=== PATIENT | female | born 1980 | race Caucasian/White ===

== ENCOUNTER → 2023-06-01 | Outpatient (CLI) | payer OTHER, SELFPAY ==
--- NOTE | 2023-06-01 09:06 | VDLE_ITS ---
Reason For Study: BLE Pain RIGHT LEFT CFV is compressible, spontaneous, phasic, LT CFV - FV - POP V - T/P Trunk - PTV - Janna competent and demonstrates normal V are all partially compressible with chronic augmentation. DVT noted throughout different portions of FV is compressible, spontaneous, phasic, vessels. competent and demonstrates normal CFV and FV are spontaneous and phasic with augmentation. normal augmentation. POP V is compressible, spontaneous, phasic, POP V is phasic and INCOMPETENT for greater competent and demonstrates normal than 1.0 second. augmentation. SFJ is competent and measures 0.58 cm. T/P Trunk is compressible. GSV proximal thigh measures 0.31 x 0.31 cm. PTV is compressible. GSV at knee measures 0.28 x 0.32 cm. RT PerV is compressible. GSV is competent throughout. SFJ is competent and measures 0.65 cm. ASV mid calf is INCOMPETENT for greater than GSV proximal thigh measures 0.28 x 0.32 cm. 0.5 seconds and measures 0.35 x 0.36 cm. GSV at knee measures 0.25 x 0.27 cm. Lt Perf approximately 9 cm above MM measures GSV above knee is competent. 0.28 x 0.28cm and is INCOMPETENT for greater GSV below knee is INCOMPETENT for greater than 0.5 seconds. than 0.5 seconds. Perf appears to feed mid calf ASV. SSV proximal calf is competent and measures Mid calf ASV appears to feed mid calf 0.16 x 0.18 cm. varicosities. Procedure SSV proximal calf is competent and measures This is a venous duplex using B-mode, color 0.41 x 0.43 cm. flow and spectral Doppler. Exam performed in department. The exam was diagnostic. VL/Venous Duplex US - Jagdish Extrem Interpretation Summary Deep veins of the bilateral lower extremities are patent and compressible segme ntally. There is no evidence of bilateral lower extremities deep vein thrombosis. The bilateral gre at saphenous veins appear patent and compressible segmentally. Positive for reflux in the right great saphenous vein below the knee. 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 Ordering Physician: Harshad Sauceda Referring Physician: Harshad Sauceda Performed By: Leopoldo Wen RVT
== END | disposition home or self-care (01) ==
LOC: CVS 09:04
PROVIDERS: Referring Provider Surgery Trauma Surgery; Visit Provider Surgery Trauma Surgery
DX: Z86.718 Personal history of other venous thrombosis and embolism (principal)
CPT/HCPCS: 93970

== ENCOUNTER 2023-06-28 06:51 | Day surgery (SDC) | payer OTHER, SELFPAY ==
[2023-06-28 07:21] LABS: Absolute Lymphocyte Count 1.89 X10^3/uL (0.83-4.51); Absolute Neutrophil Count 4.3 X10^3/uL (2.0-7.7); Basophil# 0.02 X10^3/uL; Basophil% 0.3 % (0-1); Eosinophil# 0.15 X10^3/uL; Eosinophils% 2.1 % (0-5); Hematocrit 42.3 % (37-47); Hemoglobin 13.9 g/dL (12.0-15.0); Lymphocyte # 1.89 X10^3/ul (0.83-4.51); Lymphocyte % 26.8 % (19-41); Mean Corp Hgb Conc 32.9 g/dL (32-36); Mean Corpuscular Hgb 30.3 pg (27.0-32.0); Mean Corpuscular Volume 92.4 fL (81-99); Mean Platelet Vol. 9.4 fl (6.2-12.0); Monocyte# 0.59 X10^3/uL; Monocyte% 8.4 % (0-10); NRBC Flagged by Analyzer 0 % (0-5); Neutrophil # 4.34 X10^3/uL (2.7-7.7); Neutrophil % 61.4 % (47-70); Platelet Count 298 K/mm3 (150-450); RBC Distribution Width CV 13.1 % (11.6-14.6); Red Blood Count 4.58 M/mm3 (4.2-5.4); White Blood Count 7.1 K/mm3 (4.4-11.0)
[2023-06-28 07:27] VITALS: BMI 21.2
[2023-06-28 07:36] LABS: Anion Gap 7 (5-15); BUN 17 mg/dL (7-18); Calcium,Total 8.8 mg/dL (8.5-10.1); Chloride 109 mmol/L (98-107); Creatinine, Serum 0.94 mg/dL (0.55-1.02); EST Glomerular Filtration Rate 68 mL/min (>60); Est Glom Filt Rate - Afr Amer 83 mL/min (>60); Estimated Creatinine Clearance 65.95 ml/min; Glucose 100 mg/dL (74-106); Potassium 3.5 mmol/L (3.5-5.1); Sodium Level 141 mmol/L (136-145)
--- NOTE | 2023-06-28 07:48 | PCM.HP.STD ---
HPI - General HPI Narrative ORIANA CALIX, is a 43 F who presents with left lower extremity post thrombotic syndrome, protein C and S deficiency, prior IVC filter. She has had worsening pain/swelling worse at the end of the day. 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 She denies any ulcerations. She does wear compression. [facility] Medical History Anxiety GERD (gastroesophageal reflux disease) H/O protein C deficiency H/O protein S deficiency Hypothyroidism Malignant melanoma Home Medications apixaban 5 mg tablet (Eliquis) 5 mg PO BID 06/02/22 [History Last Taken 06/27/23] eletriptan 20 mg tablet See Rx Instructions PO .COMPLEX 06/02/22 [History Last Taken Unknown] ibuprofen 600 mg tablet 600 mg PO TID 06/02/22 [History Last Taken Unknown] levothyroxine 112 mcg capsule 112 mcg PO DAILY 06/02/22 [History Last Taken 06/28/23] pantoprazole 40 mg tablet,delayed release 40 mg PO DAILY 06/02/22 [History Last Taken 06/28/23] polyethylene glycol 3350 17 gram/dose oral powder (Miralax) 4 g PO DAILY 06/02/22 [History Last Taken Unknown] tizanidine 4 mg tablet 4 mg PO QHS 06/02/22 [History Last Taken Unknown] topiramate 100 mg tablet 100 mg PO BID 06/02/22 [History Last Taken Unknown] Allergy/AdvReac Type Severity Reaction Status Date / Time Penicillins Allergy Severe Hives Verified 05/24/23 14:26 ketorolac [From Toradol] Allergy Intermediate Swelling Verified 05/24/23 14:26 latex Allergy Hives Verified 05/24/23 14:26 naproxen Allergy Hives Verified 05/24/23 14:26 Family History Father Bleeding disorder Heart disease Surgical History H/O adenoidectomy H/O local excision of skin lesion H/O superior vena cava filter placement H/O: H/O: hysterectomy Social History Smoking Status: Former smoker substance use type: does not use do you feel safe at home: Yes ROS Constitutional Constitutional: Denies chills, fever(s), frequent falls, lethargy or weakness Eyes Eyes: Denies blind spots, change in vision or loss of vision ENT HEENT: Denies bleeding gums, hoarseness or sore throat Cardiovascular Cardiovascular: Reports leg edema; Denies abdominal pain, bluish discoloration of hand/feet, chest pain with activity, claudication, cold extremities, cyanosis, dyspnea on exertion, erythema on extremities, irregular heart rhythm, leg ulcers, numbness in extremities or weakness in extremities Respiratory/Chest Respiratory/Chest: Denies cough, excessive phlegm production, shortness of breath at rest, shortness of breath with exertion or wheezing Gastrointestinal Gastrointestinal: Denies anorexia, change in stool character, constipation, diarrhea, melena or rectal bleeding Genitourinary Genitourinary: Denies dysuria or hematuria Musculoskeletal Musculoskeletal: Denies abnormal gait Integumentary Integumentary: Reports other Details: ; Denies erythema, non-healing lesions or wounds Neurologic Neurologic: Denies abnormal speech, focal weakness, headache(s), loss of vision, numbness, paresthesias or sensory deficit Hematologic/Lymphatic Hematologic/Lymphatic: Denies easy bleeding, easy bruising or lymphadenopathy Vital Signs Vital Signs Vital Signs: Weight Weight: 124 lb Body Mass Index (BMI) 21.2 Physical Exam Const alert, oriented x3, no apparent distress and healthy appearing General Appearance: cooperative; Negative for combative or lethargic Orientation / Consciousness: awake Exam Limitations: no limitations HEENT Head and Scalp: normocephalic and atraumatic Eyes EOMs intact bilaterally General Eye: normal appearance of both eyes Neck full ROM, no lymphadenopathy, thyroid normal and No no carotid bruits General: trachea midline; Negative for lymphadenopathy Thyroid: thyroid normal Resp normal respiratory effort and no use of accessory muscles Effort and Inspection: Negative for labored, stridor or audible wheezes Cardio regular rate and regular rhythm Back/Spine Cervical Spine: cervical ROM normal Extremity full ROM, normal capillary refill and no clubbing, cyanosis or edema Skin no rashes or lesions noted and no wounds Neuro oriented x3, CN's II-XII intact bilaterally, no focal motor deficits and no sensory deficits noted Psych thought process normal, cooperative, affect normal, speech normal and activity/motor behavior normal Results Lab / Micro Data 06/28/23 06:59 06/28/23 06:59 Labs: Laboratory Results - last 24 hr 06/28/23 06:59: WBC 7.1, RBC 4.58, Hgb 13.9, Hct 42.3, MCV 92.4, MCH 30.3, MCHC 32.9, RDW Std Deviation 44.0 H, RDW Coeff of Xochitl 13.1, Plt Count 298, MPV 9.4, Immature Gran % (Auto) 1.000 H, Neut % (Auto) 61.4, Lymph % (Auto) 26.8, Appling % (Auto) 8.4, Eos % (Auto) 2.1, Baso % (Auto) 0.3, Absolute Neuts (auto) 4.3, Absolute Lymphs (auto) 1.89, Nucleated RBC % 0, Sodium 141, Potassium 3.5, Chloride 109 H, Carbon Dioxide 25.0, Anion Gap 7, BUN 17, Creatinine 0.94, Estim Creat Clear Calc 65.95, Est GFR (MDRD) Af Amer 83, Est GFR (MDRD) Non-Af 68, BUN/Creatinine Ratio 18.0, Glucose 100, Calcium 8.8 Assessment & Plan Assessment/Plan (1) History of DVT (deep vein thrombosis): PLAN: -venogram
--- NOTE | 2023-06-28 09:31 | PCM.OPRPT ---
Report of Operation Date of Procedure: 06/28/23 Pre-Operative Diagnosis: venous insufficiency, post thrombotic syndrome left lower extremity Post-Operative Diagnosis: same Surgery/Procedure Performed:: venogram IVC IVUS IVC, bilateral common iliac, bilateral external iliac veins angioplasty/stent left common/external iliac veins Description of Surgical Findings:: left common iliac vein 73% compression and chronic webbing, left external iliac vein chronic webbing, patent IVC filter Surgeon: Harshad Sauceda Type of Anesthesia: Local and Sedation,Conscious Estimated Blood Loss (mL): 2 Description of Procedure: HPI: Patient is a 43-year-old female with previous extensive left lower extremity DVT and post thrombotic syndrome with worsening symptoms. She is on indefinite anticoagulation due to protein C and protein S deficiency and presents now for venogram to assess for any anatomic cause behind her worsening symptoms. Description of procedure: Upon obtaining form consent and verification correct patient procedure site patient taken to the Staff Psychologist where she was positioned prepped and draped in usual sterile fashion. Time was performed conscious sedation administered with Versed and fentanyl. Skin overlying the left common femoral vein was anesthetized 1% lidocaine the vessel accessed in retrograde fashion with a micropuncture needle wire. This then exchanged out for micropuncture sheath through which hand-injection ilio caval venogram was performed which confirmed satisfactory placement no extravasation or dissection. Also revealed widening of the common iliac vein with luminal irregularity and surrounding collaterals. It also revealed that the IVC and previously placed IVC filter were patent. Bentson wire was then advanced through the micropuncture sheath and the sheath exchanged for a 10 [place] sheath. Next skin overlying the right common femoral vein was anesthetized with 1% lidocaine the vessel accessed under ultrasound guidance with a micropuncture needle wire. This was then exchanged for micropuncture sheath routine injection ilio caval venogram was performed which revealed normal-appearing right common and external iliac veins. Through this a J-wire was advanced a micropuncture sheath exchanged out for a 10 [place] sheath. The patient was then heparinized and allowed to circulate for 3 minutes. Intravascular sound probe was then advanced via the left femoral access sheath into the vena cava and recorded pullback of the vena cava, left common iliac, left external iliac was performed. This revealed a normal caliber patent vena cava and a patent Trapeze IVC filter with no significant intimal hyperplasia, or chronic thrombus retained within it. This also revealed a 73% compression/stenosis of the left common iliac vein with significant chronic webbing in the common and external iliac veins. It appears as if this compression was inferior enough that it could be treated without compromising the vena cava confluence however to confirm this we advanced the IVUS catheter via the right femoral access sheath. A recorded pullback was then performed of the vena cava, right common iliac vein, right external iliac vein. This revealed normal caliber right iliac vein system with no compression and no chronic webbing. Next a 14 x 150 Medtronic Abre stent was brought in the field prepped for manufactures instructions. This was then advanced into position with satisfactory coverage of the compression as well as the chronic webbing and then deployed. It was then angioplastied with a 12 mm x 40 Bard [place] balloon along the entirety of the length of the stent. Repeat venogram revealed satisfactory resolution of the irregularity and stenosis with brisk contrast transit across the stented portion with no encroachment on the contralateral leg ostia. This also revealed less filling in the collateral veins. Intravascular sound was then readvanced and recorded pullback completion imaging performed which confirmed satisfactory placement with good stent to wall apposition with no residual compression. Wires and catheters then withdrawn and silk U stitch placed at each of the access sites and the sheath withdrawn and manual pressure held for 5 minutes with satisfactory stasis. Patient was then taken to recovery room with anticipated discharge home.
== END 2023-06-28 12:30 | disposition home or self-care (01) ==
PROVIDERS: Referring Provider Surgery Trauma Surgery; Visit Provider Surgery Trauma Surgery
DX: I87.2 Venous insufficiency (chronic) (peripheral) (principal); D68.59 Other primary thrombophilia; Z79.01 Long term (current) use of anticoagulants; Z87.891 Personal history of nicotine dependence; K21.9 Gastro-esophageal reflux disease without esophagitis; E03.9 Hypothyroidism, unspecified; F41.9 Anxiety disorder, unspecified; Z86.718 Personal history of other venous thrombosis and embolism
CPT/HCPCS: 36010; 36415; 37238; 37252; 37253; 75825; 76937; 80048; 85025; 86850; 86900; 86901; 99152; 99153; C1753; C1769; C1876; C1894; J7040; Q9967; C1725

== ENCOUNTER → 2023-07-06 | Outpatient (CLI) | payer OTHER, SELFPAY ==
[2023-07-06 13:46] LABS: Hemoglobin 13.4 g/dL (12.0-15.0)
== END | disposition home or self-care (01) ==
PROVIDERS: Referring Provider Physician Assistant; Visit Provider Physician Assistant
DX: Z79.01 Long term (current) use of anticoagulants (principal)
CPT/HCPCS: 36415; 85018

== ENCOUNTER → 2023-07-11 | Outpatient (CLI) | payer OTHER, SELFPAY ==
--- NOTE | 2023-07-11 14:57 | AAVD_ITS ---
Reason For Study: Pain, s/p lt iliac vein stent Inferior Vena Cava Proximal inferior vena cava measures 1.97 x 1.87 cm. in the cross-sectional axis. Proximal inferior vena cava measures 1.75 cm. in the longitudinal axis. Mid inferior vena cava measures 1.71 x 1.79 cm. in the cross-sectional axis. Mid inferior vena cava measures 1.67 cm. in the longitudinal axis. Distal inferior vena cava measures 1.26 x 1.24 cm. in the cross-sectional axis. Distal inferior vena cava measures 1.49 cm. in the longitudinal axis. The inferior vena cava has spontaneous, phasic flow throughout. Left Common Iliac Vein Left common iliac vein measures 1.02 x 1.11 cm. in the cross-sectional axis. Left common iliac vein measures 1.16 cm. in the longitudinal axis. The left common iliac vein has spontaneous, phasic flow throughout. EIV with normal venous flow noted. CFV is compressible with normal venous flow noted with augmentation. Right Common Iliac Vein Right common iliac vein measures 1.01 x 1.00 cm. in the cross-sectional axis. Right common iliac vein measures 1.13 cm. in the longitudinal axis. The right common iliac vein has spontaneous, phasic flow throughout. CFV is compressible with normal venous flow noted with augmentation. Procedure Aorta IVC Iliac vasculature or bypass grafts [id number]. Preliminary report given to Pamella DUARTE. Exam performed in department. VL/Abd Aortic/IVC Duplex scan Interpretation Summary IVC and bilateral iliac vein stents patent with normal flow patterns Ordering Physician: Tiara Sue Performed By: Ivy Cruz RVT
== END | disposition home or self-care (01) ==
LOC: CVS 14:55
PROVIDERS: Visit Provider Physician Assistant
DX: I87.1 Compression of vein (principal)
CPT/HCPCS: 93978

== ENCOUNTER → 2024-06-26 | Outpatient (CLI) | payer OTHER, SELFPAY ==
--- NOTE | 2024-06-26 09:10 | AAVD_ITS ---
Reason For Study: HX Lt CIV Stent Inferior Vena Cava Proximal inferior vena cava measures 1.79 x 1.99 cm. in the cross-sectional axis. Proximal inferior vena cava measures 1.92 cm. in the longitudinal axis. Mid inferior vena cava measures 1.47 x 1.51 cm. in the cross-sectional axis. Mid inferior vena cava measures 1.57 cm. in the longitudinal axis. Distal inferior vena cava measures 1.53 x 1.38 cm. in the cross-sectional axis. Distal inferior vena cava measures 1.26 cm. in the longitudinal axis. Bright intraluminal echo noted at mid/dist IVC. The inferior vena cava has spontaneous and pulsatile flow throughout. Left Common Iliac Vein Left common iliac vein measures 1.03 x 1.03 cm. in the cross-sectional axis. Left common iliac vein measures 1.11 cm. in the longitudinal axis. The left common iliac vein has spontaneous and pulsatile flow throughout. Stent noted in Lt CIV. Lt CFV is compressible and spontaneous with normal augmentation. Right Common Iliac Vein Right common iliac vein measures 1.14 x 1.06 cm. in the cross-sectional axis. Right common iliac vein measures 1.20 cm. in the longitudinal axis. The right common iliac vein has spontaneous pulsatile flow throughout. VL/Abd Aortic/IVC Duplex scan Interpretation Summary Patent left common iliac vein stent Patent inferior vena cava and right iliac vein. Pulsatile venous flow throughout. Ordering Physician: Harshad Sauceda Referring Physician: N/A Performed By: Leopoldo Wen, RVT
== END | disposition home or self-care (01) ==
PROVIDERS: Referring Provider Surgery Trauma Surgery; Visit Provider Surgery Trauma Surgery
DX: I87.1 Compression of vein (principal)
CPT/HCPCS: 93978

== ENCOUNTER → 2024-07-25 | Outpatient (CLI) | payer OTHER, SELFPAY ==
--- NOTE | 2024-07-25 08:11 | VDLE_ITS ---
Reason For Study: LLE PAIN RIGHT LEFT CFV is compressible, spontaneous, phasic, CFV is patent and compressible. competent and demonstrates normal CFV demonstrates wall thickening and reflux augmentation. >1.0 sec. Procedure FV patent and compressible. This is a venous duplex using B-mode, color FV demonstrates wall thickening and refulx > flow and spectral Doppler. 1.0 sec. Exam performed in department. POPV patent and compressible. Image #13 is the LT CFV. POPV demonstrated reflux > 1.0 sec. SFJ is competent and measures 0.79 cm. GSV proximal thigh measures 0.38 x 0.34 cm. GSV at knee measures 0.42 x 0.36 cm. GSV is competent throughout. SSV at junction is competent and measures 0.62 x 0.54 cm. VL/Venous Duplex US, Unilateral Interpretation Summary Deep veins of the left lower extremity are patent and compressible segmentally. There is no evidence of left lower extremity deep vein thrombosis. The left great saphenous vein heather ears patent and compressible segmentally. Positive for reflux in the left common femoral vein, femoral vein, popliteal ve in. Ordering Physician: Tiara Sue Referring Physician: OTD Performed By: Miroslava Nicholson, MAXWELL, RVT
--- NOTE | 2024-07-25 08:11 | ECHOD_ITS ---
Reason For Study: PALPITATIONS/SOB Procedure This was a 2D Doppler, Color Flow transthoracic echocardiogram. Exam performed in department. Left Ventricle Normal LV size. The estimated ejection fraction is 70 %. No evidence for diastolic dysfunction. No regional wall motion abnormalities noted. Right Ventricle Normal RV size. Normal systolic function. Atria The left and right atria are normal. No doppler evidence for ASD. Mitral Valve There is no mitral valve stenosis. Trivial mitral valve insufficiency. Tricuspid Valve There is no tricuspid stenosis. Trivial tricuspid valve insufficiency. Unable to estimate RV systolic pressure due to insufficient tricuspid regurgitant envelope. Aortic Valve Trisinus/trileaflet aortic valve. There is no aortic stenosis. No aortic valve insufficiency. Pulmonic Valve There is no pulmonic valvular stenosis. No pulmonic valve insufficiency. Great Vessels Normal aortic root. Pericardium/Pleural No pericardial effusion. MMode/2D Measurements & Calculations LVIDd: 4.3 cm IVSd: 0.97 cm LVOT diam: 2.0 cm LVIDs: 2.5 cm LVPWd: 0.91 cm LVOT area: 3.1 cm2 RVDd: 3.5 cm FS: 41.0 % asc Aorta Diam: 2.9 cm LAV(MOD-bp): 25.8 ml LVAd ap4: 19.9 cm2 LAV(MOD-bp) Indexed: 16.4 ml/m2 LVLd ap4: 6.7 cm LAV(MOD-sp2): 25.0 ml EDV(MOD-sp4): 47.8 ml LAV(MOD-sp4): 26.6 ml EDV(sp4-el): 50.2 ml LVAs ap4: 9.7 cm2 LVLs ap4: 5.2 cm ESV(MOD-sp4): 15.1 ml ESV(sp4-el): 15.4 ml EF(MOD-sp4): 68.5 % EF(sp4-el): 69.3 % LVAd ap2: 20.3 cm2 SV(MOD-sp4): 32.7 ml SV(MOD-sp2): 36.4 ml LVLd ap2: 6.8 cm EDV(MOD-sp2): 48.5 ml EDV(sp2-el): 51.4 ml LVAs ap2: 8.8 cm2 LVLs ap2: 5.2 cm ESV(MOD-sp2): 12.1 ml ESV(sp2-el): 12.6 ml EF(MOD-sp2): 75.1 % SV(sp4-el): 34.8 ml Ao sinus diam: 3.[address] Junction: 2.6 cm LA dimension(2D): 3.2 cm LA A4 area: 11.4 cm2 RA A4 area: 10.9 cm2 TAPSE: 1.8 cm Time Measurements MV dec time: 0.24 sec Doppler Measurements & Calculations MV E max john: 87.7 cm/sec Lat Peak E' John: 12.7 cm/sec Med Peak E' John: 12.3 cm/sec MV A max john: 59.5 cm/sec E/E' lat: 6.9 E/E' med: 7.1 MV E/A: 1.5 MV dec slope: 363.3 cm/sec2 Ao V2 max: 90.0 cm/sec LV V1 max: 85.1 cm/sec Ao max P.2 mmHg LV V1 max P.9 mmHg Ao V2 mean: 64.6 cm/sec LV V1 mean P.5 mmHg Ao mean P.8 mmHg LV V1 mean: 57.5 cm/sec Ao V2 VTI: 18.6 cm LV V1 VTI: 18.9 cm AV (velocity ratio): 1.0 MATTHEW(I,D): 3.2 cm2 MATTHEW(V,D): 3.0 cm2 SV(LVOT): 59.4 ml PA V2 max: 73.3 cm/sec TR max john: 176.7 cm/sec PA max PG (full): 0.82 mmHg TR max P.5 mmHg ECHO/Echo Complete Interpretation Summary The estimated ejection fraction is 70 %. No evidence for diastolic dysfunction. Trivial mitral valve insufficiency. Ordering Physician: Tiara Sue Referring Physician: Tiara Sue Performed By: Rozina Glynn RDCS
[2024-07-25 10:50] LABS: Vitamin B12 517 pg/mL (211-911)
[2024-07-25 11:38] LABS: Anion Gap 7 (5-15); BUN 11 mg/dL (7-18); Calcium,Total 8.9 mg/dL (8.5-10.1); Chloride 113 mmol/L (98-107); Creatinine, Serum 0.69 mg/dL (0.55-1.02); EST Glomerular Filtration Rate 98 mL/min (>60); Est Glom Filt Rate - Afr Amer 119 mL/min (>60); Glucose 102 mg/dL (74-106); Sodium Level 140 mmol/L (136-145); Thyroid Stim Hormone (TSH) 0.819 uIU/mL (0.358-3.740)
== END | disposition home or self-care (01) ==
PROVIDERS: Referring Provider Physician Assistant; Visit Provider Physician Assistant
DX: M79.2 Neuralgia and neuritis, unspecified (principal); R00.2 Palpitations; M79.662 Pain in left lower leg
CPT/HCPCS: 36415; 80048; 82607; 84443; 93306; 93971

== ENCOUNTER 2024-07-31 07:02 | Day surgery (SDC) | payer OTHER, SELFPAY ==
[2024-07-30 07:31] VITALS: BMI 20.2
[2024-07-31 07:21] LABS: Hematocrit 41.8 % (37-47); Hemoglobin 13.3 g/dL (12.0-15.0); Mean Corp Hgb Conc 31.8 g/dL (32-36); Mean Corpuscular Hgb 30.2 pg (27.0-32.0); Mean Platelet Vol. 9.5 fl (6.2-12.0); Platelet Count 257 K/mm3 (150-450); RBC Distribution Width CV 13.3 % (11.6-14.6); RBC Distribution Width SD 46.8 fl (35.1-43.9); White Blood Count 5.5 K/mm3 (4.4-11.0)
[2024-07-31 07:46] LABS: Anion Gap 7 (5-15); BUN 12 mg/dL (7-18); BUN/Creat Ratio 14.3 RATIO (10-20); Calcium,Total 8.8 mg/dL (8.5-10.1); Chloride 112 mmol/L (98-107); Creatinine, Serum 0.84 mg/dL (0.55-1.02); EST Glomerular Filtration Rate 78 mL/min (>60); Est Glom Filt Rate - Afr Amer 94 mL/min (>60); Estimated Creatinine Clearance 71.46 ml/min; Glucose 93 mg/dL (74-106); Potassium 3.6 mmol/L (3.5-5.1); Sodium Level 143 mmol/L (136-145)
--- NOTE | 2024-07-31 17:22 | PCM.OPRPT ---
Report of Operation Date of Procedure: 07/31/24 Pre-Operative Diagnosis: Prior left iliac vein stenting Post-Operative Diagnosis: Same Surgery/Procedure Performed:: Venogram inferior vena cava Intravascular ultrasound of the inferior vena cava, left common iliac vein, left external iliac vein Surgeon: Harshad Sauceda Type of Anesthesia: Local and Sedation,Conscious Estimated Blood Loss (mL): 3 Description of Procedure: HPI: Patient is a 44-year-old female with multiple deep venous thromboses and history of factor C&S deficiency, prior IVC filter placement, and left iliac vein stenting that was performed 1 year prior. She has had recurrence of left lower extremity discomfort and her venous duplex revealed patent stent but with abnormal flow pattern so she is taken now for venogram to further assess. Description of procedure: Upon obtaining informed consent and verification correct patient procedure site patient was taken to the Accounting Analyst where she was positioned prepped and draped in usual sterile fashion. Timeouts performed conscious sedation administered Versed and fentanyl. Skin overlying the left common femoral vein was anesthetized 1% lidocaine the vessel accessed under ultrasound guidance with a micropuncture needle and wire. This was then exchanged for micropuncture sheath routine injection ilio caval venogram was performed revealing patent stent with brisk contrast transit and no significant collateral branches. This also revealed brisk contrast transit across the vena cava and the IVC filter which appeared to be patent. IQR Consulting wire was then advanced and the micropuncture sheath exchanged for an 8 [place] sheath through which an intravascular ultrasound probe was advanced and recorded pullback performed of the IVC, left common iliac vein, left external iliac vein. This revealed widely patent IVC filter with no evidence of any stenosis or entrapped thrombus. This also revealed satisfactory iliac vein stent with no residual compression, no intimal hyperplasia or in-stent restenosis, and satisfactory transition to normal vessel above and below the stent. Seeing no lesions that required treatment the wire and catheter then withdrawn. The sheath was then withdrawn and manual pressure held for 5 minutes until hemostasis was obtained. Patient was then taken to the cover area for bedrest prior to discharge to home.
== END 2024-07-31 10:55 | disposition home or self-care (01) ==
PROVIDERS: PCP Student in an Organized Health Care Education/Training Program; Referring Provider Surgery Trauma Surgery; Visit Provider Surgery Trauma Surgery
DX: I87.1 Compression of vein (principal); I82.512 Chronic embolism and thrombosis of left femoral vein; M79.662 Pain in left lower leg; D68.59 Other primary thrombophilia; E03.9 Hypothyroidism, unspecified; F41.9 Anxiety disorder, unspecified; G43.909 Migraine, unspecified, not intractable, without status migrainosus; J32.9 Chronic sinusitis, unspecified; K21.9 Gastro-esophageal reflux disease without esophagitis; Z79.01 Long term (current) use of anticoagulants; R00.2 Palpitations; R55 Syncope and collapse; Z87.891 Personal history of nicotine dependence; Z90.710 Acquired absence of both cervix and uterus
CPT/HCPCS: 36005; 36010; 36415; 37252; 37253; 75820; 75825; 76937; 80048; 85027; 99152; 99153; C1753; C1769; C1894; Q9967

== ENCOUNTER → 2024-08-23 | Outpatient (CLI) | payer OTHER, SELFPAY ==
[2024-08-24 06:10] LABS: HOMOCYSTEINE 41.7 umol/L (0.0-14.5)
== END | disposition home or self-care (01) ==
LOC: LAB 12:18
PROVIDERS: PCP Student in an Organized Health Care Education/Training Program; Referring Provider Physician Assistant; Visit Provider Physician Assistant
DX: I82.512 Chronic embolism and thrombosis of left femoral vein (principal)
CPT/HCPCS: 36415; 83090

== ENCOUNTER → 2024-08-27 | Outpatient (CLI) | payer OTHER, SELFPAY ==
--- NOTE | 2024-08-28 12:43 | PCM.TILTTABL ---
Staff Staff: Yahaira Szymanski and Valentina Mcneill Summary Pre Test Resting HR: 77 Pre Test Resting BP: 112/75 Minimum Test HR: 77 Maximum Test HR: 134 Minimum Test BP: 78/0 Maximum Test BP: 112/75 Reason for Test Termination: Syncope Physician Tilt Table Report Patient's Physicians Primary Care Physician: Jenna Ramos Indications/Diagnosis: Syncope Procedure Comments: Patient was brought to the noninvasive lab in the postabsorptive nonsedated state. Informed consent was obtained. Initial heart rate and blood pressure was obtained as well as EKG. Initial EKG demonstrated sinus rhythm with a rate of 77 bpm blood pressure started in 12 over 75 mmHg. The patient was then placed in the 70 degree head upright tilt position. Continuous EKG monitoring was performed as well as blood pressure measurements. Patient had mild increase in heart rate and drop in blood pressure on standing but no significant orthostatic changes were noted. After 20 minutes patient was put back in the recumbent position. Patient was then given 0.4 mg of sublingual nitroglycerin. The patient was then put back in the 70 degree head upright tilt position. Heart rate went up from 109 to134 bpm with a drop in the blood pressure with patient feeling clammy. Patient heart rate then improved to approximately 108 bpm with a final blood pressure of 92/66 mmHg. Summary: Likely orthostatic blood pressure changes from sublingual nitroglycerin.
[2024-08-28 12:46] VITALS: BP 112/75
[2024-08-28 12:55] VITALS: BP 112/75; BP 78/0
== END | disposition home or self-care (01) ==
LOC: CVS 10:11
PROVIDERS: PCP Student in an Organized Health Care Education/Training Program; Referring Provider Physician Assistant; Visit Provider Physician Assistant
DX: R55 Syncope and collapse (principal)
CPT/HCPCS: 93660; J7040; A4216

== ENCOUNTER 2024-11-26 08:45 | Outpatient (CLI) | payer BC, SELFPAY ==
[2024-11-29 11:08] LABS: ANTINUCLEAR ANTIBODIES DIRECT Negative (Negative)
[2024-12-03 11:07] LABS: Anti-Centromere B Ab <0.2 AI (0.0-0.9); Anti-Chromatin <0.2 AI (0.0-0.9); Anti-Jo <0.2 AI (0.0-0.9); Anti-Scleroderma-70 AB <0.2 AI (0.0-0.9); Anti-dsDNA Ab <1 IU/mL (0-9); RNP Ab <0.2 AI (0.0-0.9); SJOGREN'S Anti-SS-A test < 0.2 AI (0.0-0.9); SJOGREN'S Anti-SS-B test < 0.2 AI (0.0-0.9); Smith Ab <0.2 AI (0.0-0.9)
== END 2024-11-26 23:59 | disposition home or self-care (01) ==
LOC: BIMLAB 08:47
PROVIDERS: PCP Student in an Organized Health Care Education/Training Program; Visit Provider Internal Medicine
DX: E03.9 Hypothyroidism, unspecified (principal); M54.9 Dorsalgia, unspecified; G89.29 Other chronic pain
CPT/HCPCS: 36415; 86038; 86225; 86235

== ENCOUNTER → 2024-12-09 | Outpatient (CLI) | payer BC, SELFPAY ==
[2024-12-12 01:06] LABS: Pancreatic Elastase, Fecal > 800 (>200)
== END | disposition home or self-care (01) ==
LOC: LABSPEC 16:14
PROVIDERS: PCP Student in an Organized Health Care Education/Training Program; Referring Provider Internal Medicine; Visit Provider Internal Medicine
DX: R19.4 Change in bowel habit (principal)
CPT/HCPCS: 82653

== ENCOUNTER → 2024-12-25 | Outpatient (CLI) | payer BC, SELFPAY ==
--- NOTE | 2024-12-25 07:58 | BI_ITS ---
PROCEDURE: SCRN MAMM (CAD)W/RAYMOND BILAT REASON FOR EXAM: F, Age 44 y/o, annual follow-up. No family history. TECHNIQUE: Bilateral screening digital breast tomosynthesis with 2D and 3D images. Computer aided detection. COMPARISON: Prior exam(s) dating back to outside examination dated March 31, 2021.. FINDINGS: The breasts are extremely dense which lowers the sensitivity of mammography. No suspicious masses, areas of developing architectural distortion, or suspicious calcifications. BI/SCRN MAMM (CAD)W/RAYMOND BILAT IMPRESSION: BI-RADS 1: NEGATIVE. RECOMMEND ANNUAL MAMMOGRAPHIC SCREENING. Follow-up code: Routine Follow-up The patient will be notified of the results by letter. Reading Location: [id number]
== END | disposition home or self-care (01) ==
LOC: OPBI 07:56
PROVIDERS: PCP Student in an Organized Health Care Education/Training Program; Referring Provider Nurse Practitioner Family; Visit Provider Nurse Practitioner Family
DX: Z12.31 Encounter for screening mammogram for malignant neoplasm of breast (principal)
CPT/HCPCS: 77063; 77067

== ENCOUNTER 2025-05-24 11:20 | Emergency (ER) | payer BC, SELFPAY ==
[2025-05-24 11:21] VITALS: BP 142/78; PULSE 95; RESP 14; TEMP 37.3; O2SAT 100; BMI 21.3
--- NOTE | 2025-05-24 11:37 | EKG12_ITS ---
Test Reason : GENERAL Blood Pressure : */* mmHG Vent. Rate : 77 BPM Atrial Rate : 77 BPM P-R Int : 164 ms QRS Dur : 66 ms QT Int : 346 ms P-R-T Axes : 52 56 52 degrees QTcB Int : 391 ms Normal sinus rhythm Normal ECG Confirmed by CHRIS MEDINA, LIYAH ([id number]), technical editor FAB HOLLY ([id number]) on 05/27/2025 7:53:47 AM Referred By: Confirmed By: LIYAH PEREZ MD
--- NOTE | 2025-05-24 11:44 | ED.VIS.FEGU ---
HPI <PRAVEENA Regalado - Last Filed: 05/24/25 14:58> HPI - Female History of Present Illness Chief Complaint: Complaint Narrative Narrative: Patient presenting today with multiple complaints. She reports dysuria and urinary frequency over the past 2 days. She saw her ASH WORKER yesterday who started her on ciprofloxacin, she did have a urine dip at the office that revealed a small amount of blood but no obvious UTI. She denies concerns for STDs. She also reports pain to her left lower extremity that started today, she is concerned for a DVT given she has had multiple DVTs in the past, she has a history of protein S and C deficiency following with hematology on Eliquis, she is compliant with her Eliquis. She denies any recent surgeries or travel. She additionally reports having intermittent pain across her chest and across her upper back that has been ongoing over the past 2 weeks. The pain is nonexertional. She denies fevers, chills, abdominal pain, shortness of breath, flank pain. She did have 1 episode of vomiting yesterday. [facility] <PRAVEENA Regalado - Last Filed: 05/24/25 14:58> [facility] Medical History Screening mammogram for breast cancer IBS (irritable bowel syndrome) Malignant melanoma H/O protein S deficiency H/O protein C deficiency Hypothyroidism GERD (gastroesophageal reflux disease) Anxiety Home Medications ?Medication ?Instructions ?Recorded ?Last Taken ?Type apixaban 5 mg tablet (Eliquis) 5 mg PO BID 06/02/22 07/30/24 History pantoprazole 40 mg tablet,delayed 40 mg PO DAILY 06/02/22 07/31/24 History release polyethylene glycol 3350 17 4 g PO DAILY 06/02/22 Unknown History gram/dose oral powder (Miralax) topiramate 100 mg tablet 100 mg PO BID 06/02/22 07/31/24 History amitriptyline 10 mg tablet 20 mg PO QHS 07/05/24 Unknown History aspirin 81 mg tablet,delayed 81 mg PO QDAY 07/05/24 Unknown History release (Adult Low Dose Aspirin) montelukast 10 mg tablet 10 mg PO QHS #30 tabs 10/08/24 Unknown Rx (Singulair) dicyclomine 20 mg tablet 20 mg PO TID PRN 11/05/24 Unknown History eletriptan 20 mg tablet See Rx Instructions PO .COMPLEX PRN 11/05/24 Unknown History gabapentin 100 mg capsule 100 mg PO TID 11/05/24 Unknown History ibuprofen 600 mg tablet 600 mg PO TID PRN 11/05/24 Unknown History tizanidine 4 mg tablet 4 mg PO QHS PRN 11/05/24 Unknown History doxycycline hyclate 100 mg capsule 100 mg PO BID 12/23/24 Unknown History rimegepant 75 mg disintegrating 75 mg PO ONCE PRN 12/23/24 Unknown History tablet (Nurtec ODT) levothyroxine 100 mcg tablet 100 mcg PO 05/24/25 Unknown History liothyronine 5 mcg tablet 5 mcg PO 05/24/25 Unknown History ondansetron 4 mg disintegrating 4 mg PO DAILY PRN nausea and 05/24/25 Unknown History tablet vomiting phenazopyridine 200 mg tablet 200 mg PO TID 6 doses #6 tabs 05/24/25 Unknown Rx (Pyridium) Allergy/AdvReac Type Severity Reaction Status Date / Time Penicillins Allergy Severe Hives Verified 05/24/25 11:20 ketorolac (From Toradol) Allergy Intermediate Swelling Verified 05/24/25 11:20 latex Allergy Hives Verified 05/24/25 11:20 Family History Father Bleeding disorder protein C, S deficiency and Factor V leiden Heart disease Grandfather Bleeding disorder Pulmonary embolism Mother IBS (irritable bowel syndrome) Brother IBS (irritable bowel syndrome) Grandfather Heart disease quadruple bypass Surgical History Iliac vein thrombosis, left H/O local excision of skin lesion H/O adenoidectomy H/O: H/O superior vena cava filter placement H/O: hysterectomy Social History household members: spouse and other details: 2 dogs housing: house current occupational status: employed 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 [employer] Smoking Status: Former smoker quit date: 10/23/15 pack-years: 23 alcohol intake: former year quit: 2016 substance use type: does not use what type of physical activity do you participate in: none seatbelt use: always do you feel safe at home: Yes ROS <PRAVEENA Regalado - Last Filed: 05/24/25 14:58> ROS ED Constitutional Constitutional ED: Denies chills or fever(s) Cardiovascular Cardiovascular: Denies chest pain Respiratory/Chest Respiratory/Chest: Denies dyspnea Gastrointestinal Gastrointestinal: Denies abdominal pain, nausea or vomiting Genitourinary Genitourinary ED: Reports dysuria and urinary frequency; Denies hematuria Musculoskeletal Musculoskeletal: Reports myalgias; Denies back pain Integumentary Denies rash Neurologic Neurologic: Denies paresthesias or weakness EXAM <PRAVEENA Regalado - Last Filed: 05/24/25 14:58> Physical Exam Const Vital Signs: 05/24/25 11:21 05/24/25 13:20 05/24/25 14:48 Temperature 99.1 F 98.4 F Temperature Source Temporal Pulse Rate 95 71 68 Respiratory Rate 14 16 14 Blood Pressure 142/78 H 136/84 H 128/84 H Blood Pressure Mean 99 101 98 Pulse Ox 100 99 97 Oxygen Delivery Method Room Air Positive well nourished, well developed and no apparent distress General Appearance ED: well developed HEENT Reports normocephalic and head/scalp atraumatic Mouth ED: Yes moist mucous membranes normal Eyes PERRL and EOMs intact bilaterally Neck full ROM and supple Chest Wall inspection of chest normal Chest Narrative: Tenderness across the chest and upper back. No overlying rashes or bruising. Resp normal respiratory effort and clear to auscultation bilaterally Cardio regular rate and regular rhythm GI soft to palpation, non-distended and no masses Back/Spine normal ROM and normal to inspection Extremity normal to inspection and full ROM Extremity Narrative: Bilateral DP pulse 2+, good cap refill. No swelling, edema, or erythema to the bilateral lower extremities. Neuro oriented x3, CN's II-XII intact bilaterally, moves all extremities, no focal motor deficits and no sensory deficits noted Sensorium / Orientation: awake and alert Psych mental status grossly normal and thought process normal Skin no rashes or lesions noted and no wounds <Dr. Kenroy Jernigan MD - Last Filed: 05/24/25 15:06> Physical Exam Const Vital Signs: 05/24/25 11:21 05/24/25 13:20 05/24/25 14:48 Temperature 99.1 F 98.4 F Temperature Source Temporal Pulse Rate 95 71 68 Respiratory Rate 14 16 14 Blood Pressure 142/78 H 136/84 H 128/84 H Blood Pressure Mean 99 101 98 Pulse Ox 100 99 97 Oxygen Delivery Method Room Air [facility] <PRAVEENA Regalado - Last Filed: 05/24/25 14:58> [facility] Narrative Medical decision making narrative: Patient presenting today due to concerns for UTI due to dysuria, she denies concerns for STDs. UA will be obtained to assess for UTI, she was started on Cipro yesterday although she had a urine dip that only revealed a small amount of blood. She also reports pain to her left lower extremity, there is no swelling or signs of infection on exam, she is neurovascularly intact to her bilateral lower extremities. She is on Eliquis but also does use nicotine products and hormonal therapy, therefore venous duplex ultrasound will be obtained to assess for DVT. She reports a intermittent pain across her chest and upper back that has been ongoing for weeks that is nonspecific. EKG here does not reveal any ischemia. She does have reproducible tenderness across her chest. Given she is compliant with her Eliquis low suspicion for PE. Her ultrasound here was negative for DVT of the left lower extremity. Her CBC and BMP are largely unremarkable, UA negative for UTI. I will give her a prescription for Pyridium. I have also given her a referral to gynecology. She will be discharged home in stable condition. I have personally performed a face to face assessment of the patient and have reviewed the BRYAN Note. I performed a substantive portion of the visit including all aspects of the following. My santillan findings include: History is remarkable for constant leg pain for decades and recurrent clots on apixaban. She states she has not missed any dose of apixaban. Per review of old records she has had 18 prior clots. She states she has had pain now in her right leg. The veins in her foot are swollen. She complains of pain in the entire left lower extremity but the pain is worse medial left leg and calf and medial left thigh. She denies discoloration of that leg. She states there is bumps that have appeared. Movement makes the pain worse. She denies paresthesia, anesthesia or motor issues. She does report chest pain. She is concerned her filter has moved. She presently is not having chest pain. There are no alleviating, exacerbating or precipitating factors with regard to the chest pain. There is no associated symptoms. She denies GI symptoms. She was seen by her stripper and opaquer apprentice and placed on ciprofloxacin for presumed urinary tract infection. The urine dip positive for blood only. This could be due to apixaban or other causes. She does have discomfort with urination. She does not have a history of interstitial cystitis. Exam is remarkable for elevated blood pressure. She appears older than age. HEENT is unremarkable. Lungs are clear auscultation with symmetric breath sounds. Heart is regular. Rate is normal. There is no murmur, gallop or rub. Abdomen is benign. Left leg may be slightly swollen compared to right. There is no discoloration. There is no leg vein distention either side. There is no tenderness along the distribution deep venous system on the right. She has pain in the calf and abductor canal on the left. There is no angel lymphadenopathy. Medical Decision Making patient is at risk for recurrent clot since she is on nicotine product and hormonal therapy. Because there is slight swelling she has had 18 clots will obtain venous duplex study. With regards to the chest pain this is a recurrent issue. In my opinion is not cardiac. Will obtain EKG to see if there is any evidence of heart strain or S1Q3T3 to suggest PE. This would be unlikely due to the fact that she is on apixaban and has a filter in. Other additions or changes: [None] Lab Data Labs: Laboratory Results - last 24 hr 05/24/25 05/24/25 12:10 12:54 WBC 5.5 RBC 4.14 L Hgb 12.3 Hct 37.8 MCV 91.3 MCH 29.7 MCHC 32.5 RDW Std Deviation 41.2 RDW Coeff of Xochitl 12.4 Plt Count 211 MPV 9.3 Immature Gran % (Auto) 0.400 Neut % (Auto) 66.2 Lymph % (Auto) 20.3 [place] % (Auto) 8.2 Eos % (Auto) 4.5 Baso % (Auto) 0.4 Absolute Neuts (auto) 3.7 Absolute Lymphs (auto) 1.12 Nucleated RBC % 0 Sodium 140 Potassium 3.8 Chloride 108 Carbon Dioxide 20.5 L Anion Gap 12 BUN 12 Creatinine 0.86 Estim Creat Clear Calc 73.55 Est GFR (MDRD) Non-Af 85 BUN/Creatinine Ratio 14.2 Glucose 92 Calcium 8.6 Urine Color Yellow Urine Clarity Clear Urine pH 7.0 Ur Specific [place] 1.010 Urine Protein Negative Urine Glucose (UA) Normal Urine Ketones Negative Urine Occult Blood Negative Urine Nitrite Negative Urine Bilirubin Negative Urine Urobilinogen Normal Ur Leukocyte Esterase Negative Urine RBC 0 SEEN Urine WBC 0 SEEN Ur Squamous Epith Cells 0 SEEN Urine Bacteria 0 SEEN Urine Mucus 0 SEEN EKG Initial EKG: Comments: 77 bpm, normal sinus rhythm, no ST elevation, interpreted by attending ED physician <Dr. Kenroy Jernigan MD - Last Filed: 05/24/25 15:06> [facility] MDM Narrative Medical decision making narrative: I have personally performed a face to face assessment of the patient and have reviewed the BRYAN Note. I performed a substantive portion of the visit including all aspects of the following. My santillan findings include: History is remarkable for constant leg pain for decades and recurrent clots on apixaban. She states she has not missed any dose of apixaban. Per review of old records she has had 18 prior clots. She states she has had pain now in her right leg. The veins in her foot are swollen. She complains of pain in the entire left lower extremity but the pain is worse medial left leg and calf and medial left thigh. She denies discoloration of that leg. She states there is bumps that have appeared. Movement makes the pain worse. She denies paresthesia, anesthesia or motor issues. She does report chest pain. She is concerned her filter has moved. She presently is not having chest pain. There are no alleviating, exacerbating or precipitating factors with regard to the chest pain. There is no associated symptoms. She denies GI symptoms. She was seen by her stripper and opaquer apprentice and placed on ciprofloxacin for presumed urinary tract infection. The urine dip positive for blood only. This could be due to apixaban or other causes. She does have discomfort with urination. She does not have a history of interstitial cystitis. Exam is remarkable for elevated blood pressure. She appears older than age. HEENT is unremarkable. Lungs are clear auscultation with symmetric breath sounds. Heart is regular. Rate is normal. There is no murmur, gallop or rub. Abdomen is benign. Left leg may be slightly swollen compared to right. There is no discoloration. There is no leg vein distention either side. There is no tenderness along the distribution deep venous system on the right. She has pain in the calf and abductor canal on the left. There is no angel lymphadenopathy. Medical Decision Making patient is at risk for recurrent clot since she is on nicotine product and hormonal therapy. Because there is slight swelling she has had 18 clots will obtain venous duplex study. With regards to the chest pain this is a recurrent issue. In my opinion is not cardiac. Will obtain EKG to see if there is any evidence of heart strain or S1Q3T3 to suggest PE. This would be unlikely due to the fact that she is on apixaban and has a filter in. Other additions or changes: [None] History & Record Review Discussion w/independent historian: Significant other ( contributed to history.) Lab Data Attestation: I reviewed the patient's lab results. Lab results narrative: CBC is normal BMP is unremarkable. CO2 is slightly low at 20.5. Anion gap is normal Labs: Laboratory Results - last 24 hr 05/24/25 05/24/25 12:10 12:54 WBC 5.5 RBC 4.14 L Hgb 12.3 Hct 37.8 MCV 91.3 MCH 29.7 MCHC 32.5 RDW Std Deviation 41.2 RDW Coeff of Xochitl 12.4 Plt Count 211 MPV 9.3 Immature Gran % (Auto) 0.400 Neut % (Auto) 66.2 Lymph % (Auto) 20.3 [place] % (Auto) 8.2 Eos % (Auto) 4.5 Baso % (Auto) 0.4 Absolute Neuts (auto) 3.7 Absolute Lymphs (auto) 1.12 Nucleated RBC % 0 Sodium 140 Potassium 3.8 Chloride 108 Carbon Dioxide 20.5 L Anion Gap 12 BUN 12 Creatinine 0.86 Estim Creat Clear Calc 73.55 Est GFR (MDRD) Non-Af 85 BUN/Creatinine Ratio 14.2 Glucose 92 Calcium 8.6 Urine Color Yellow Urine Clarity Clear Urine pH 7.0 Ur Specific [place] 1.010 Urine Protein Negative Urine Glucose (UA) Normal Urine Ketones Negative Urine Occult Blood Negative Urine Nitrite Negative Urine Bilirubin Negative Urine Urobilinogen Normal Ur Leukocyte Esterase Negative Urine RBC 0 SEEN Urine WBC 0 SEEN Ur Squamous Epith Cells 0 SEEN Urine Bacteria 0 SEEN Urine Mucus 0 SEEN Treatment and Re-Evaluation Narrative: Venous duplex study was negative for DVT. Discharge Plan Triage Chief Complaint: Complaint ED Midlevel Provider: Jodie Ernst ED Provider: Kenroy Jernigan Dx/Rx/DC Orders Clinical Impression: Dysuria, Protein C deficiency, Protein S deficiency, History of DVT (deep vein thrombosis), Left leg pain Instructions: ED Dysuria, Uncertain Cause (Adult), ED Pain, Acute, Uncertain Cause Prescriptions: New phenazopyridine [Pyridium] 200 mg tablet 200 mg PO TID Qty: 6 0RF No Action Eliquis 5 mg tablet 5 mg PO BID topiramate 100 mg tablet 100 mg PO BID pantoprazole 40 mg tablet,delayed release (DR/EC) 40 mg PO DAILY polyethylene glycol 3350 [Miralax] 17 gram/dose powder 4 g PO DAILY eletriptan 20 mg tablet See Rx Instructions PO .COMPLEX PRN Rx Instructions: 40 mg take 1 tab at onset of headache; if no relief may repeat 1 tab after at least 2 hrs; max = 4 tabs/24 hr orally PRN; ibuprofen 600 mg tablet 600 mg PO TID PRN tizanidine 4 mg tablet 4 mg PO QHS PRN amitriptyline 10 mg tablet 20 mg PO QHS aspirin [Adult Low Dose Aspirin] 81 mg tablet,delayed release (DR/EC) 81 mg PO QDAY gabapentin 100 mg capsule 100 mg PO TID Rx Instructions: tid montelukast [Singulair] 10 mg tablet 10 mg PO QHS Qty: 30 1RF dicyclomine 20 mg tablet 20 mg PO TID PRN Nurtec ODT 75 mg tablet,disintegrating 75 mg PO ONCE PRN Rx Instructions: as a single dose doxycycline hyclate 100 mg capsule 100 mg PO BID liothyronine 5 mcg tablet 5 mcg PO levothyroxine 100 mcg tablet 100 mcg PO ondansetron 4 mg tablet,disintegrating 4 mg PO DAILY PRN (Reason: nausea and vomiting) Primary Care Provider: Jenna Ramos Referrals: Marah Cade MD [Med Staff - Active Staff] - 5-7 Days Jenna Ramos DO [Primary Care Provider] - 5-7 Days Activity Restrictions/Additional Instructions: I referred you to gynecology if your dysuria does not improve, follow-up with your PCP, return for any other concerns or worsening symptoms. Print Language: Romanian Disposition Disposition: Home, Self Care Discharge Date/Time: 05/24/25 14:49
--- NOTE | 2025-05-24 11:53 | VDLE_ITS ---
Reason For Study Reason For Study: LLE PAIN Procedure LEFT This is a venous duplex using B-mode, color flow and GSV is normal. spectral Doppler. CFV is compressible, spontaneous, competent, and Exam performed portable in ED. demonstrates pulsatile venous flow. The study was technically difficult. FV is compressible, spontaneous, competent and A preliminary report was called and/or faxed to ED @ demonstrates pulsatile venous flow & venous WALL 12:50 PM. THICKENING. POP V is compressible, spontaneous, competent and demonstrates pulsatile venous flow & venous WALL THICKENING. PTV is compressible. LT PerV is compressible. VL/Venous Duplex US, Unilateral Interpretation Summary Deep veins of the left lower extremity are patent and compressible segmentally. There is no evidence of left lower extremity deep vein thrombosis. The left great saphenous vein appears patent an d compressible segmentally. Ordering Physician: Jodie Ernst Referring Physician: Jenna Ramos Performed By: Miroslava Nicholson, MAXWELL, RVT
[2025-05-24 12:14] LABS: Hematocrit 37.8 % (37-47); Hemoglobin 12.3 g/dL (12.0-15.0); Immature Granulocytes Count 0.020 X10^3/uL (0.0-0.0); Mean Corp Hgb Conc 32.5 g/dL (32-36); Mean Corpuscular Volume 91.3 fL (81-99); Mean Platelet Vol. 9.3 fl (6.2-12.0); NRBC Flagged by Analyzer 0 % (0-5); Platelet Count 211 K/mm3 (150-450); RBC Distribution Width CV 12.4 % (11.6-14.6); RBC Distribution Width SD 41.2 fl (35.1-43.9); Red Blood Count 4.14 M/mm3 (4.2-5.4); White Blood Count 5.5 K/mm3 (4.4-11.0)
--- OUTSIDE RECORDS SUMMARY | 2025-05-24 12:20 | XMS RPT_ITS | CCD ---
Author Organization [facility] Inform ion Partnership [facility] Care Team Providers Care Supervisor Shearing Name Role Phone Eduin MEDINA, Medhat Elizondo Primary Care Provider Madison Spicer DO Unavailable Alex Perez MD Unavailable Nathan Gamez Primary Care Provider Medhat Denny MD Primary Care Provider Madison Spicer DO Unavailable Alex Perez MD Unavailable Medhat Denny MD Primary Care Provider Madison Spicer DO Unavailable Medhat Denny MD Primary Care Provider Madison Spicer DO Unavailable Alex Perez MD Unavailable MEDHAT DENNY Attending Unavailable MEDHAT DENNY Attending Unavailable MEMO MATTA Consulting Unavailable MEDHAT DENNY Attending Unavailable MEDHAT DENNY Attending Unavailable MEDHAT DENNY Attending Unavailable ROBB STONE M.D. Attending Unava ilable MEDHAT DENNY Attending Unavailable MEDHAT DENNY Attending Unavailable MEDHAT DENNY Attending Unavailable MEDHAT DENNY Attending Unavailable MEDHAT DENNY Attending Unavailable MEDHAT DENNY Attending Unavailable ROBB STONE M.D. Attending Unava ilable Care Physician, No Primary Primary Care Provider Unavailable Care Physician, No Primary Referring Provider Un available Dr. Harshad Sauceda Attending Provider [phone] Spicer DO, Madison Unavailable BEBETO SOLIMAN Attending Unavailable ROBB STONE M.D. Attending Unava ilable ROSALINA HILTON Attending Unavailable DENNY, HYO YOUNG Primary Care Unavailable CARLTON, FAB Attending Unavailable BEBETO SOLIMAN Attending Unavailable DENNY, HYO YOUNG Referring Unavailable DENNY, HYO YOUNG Primary Care Unavailable BEBETO SOLIMAN Attending Unavailable DENNY, HYO YOUNG Primary Care Unavailable DENNY, HYO YOUNG Primary Care Unavailable RAYMOND CARDENAS Attending Unavailable DENNY, HYO YOUNG Primary Care Unavailable YOBANIROSALINA CHRISTENSEN Attending Unavailable DENNY, HYO YOUNG Primary Care Unavailable LUKASZ WOODWARD Referring Unavailable CARLTON, FAB Attending Unavailable DENNY, HYO YOUNG Primary Care Unavailable DENNY, HYO YOUNG Referring Unavailable DENNY, HYO YOUNG Attending Unavailable DENNY, HYO YOUNG Primary Care Unavailable DENNY, HYO YOUNG Primary Care Unavailable RAYMOND CARDENAS Attending Unavailable Dr. Harshad Sauceda Referring Provider [phone] Harshad Sauceda Other Provider Yobani DATA SCIENCE AND IOT MANAGER.Rosalina BERNAL Primary Care Provider Care Physician, No Primary Primary Care Provider Unavailable Care Physician, No Primary Referring Provider Un available Dr. Harshad Sauceda Attending Provider [phone] Harshad Sauceda Referring Provider [phone] Harshad Sauceda Other Provider PRAVEENA Sue Attending Provider [phone] PRAVEENA Sue Referring Provider [phone] DENNY, HYO YOUNG Primary Care Unavailable HAILEY CHING Attending Unavailable CARLTON, FAB Referring Unavailable Yobani DATA SCIENCE AND IOT MANAGER.Rosalina BERNAL A Primary Care Provider GROVER OSORIO MD Attending Unavailable KEVIN MUNOZ MD Primary Care Unavailable NAZ JOHNSON PA-C Attending Unavailable KEVIN MUNOZ MD Primary Care Unavailable Dwayne Mcdaniel MD Primary Care Provider Yobani DATA SCIENCE AND IOT MANAGER.Rosalina BERNAL A Primary Care Provider Rachel STOKES Jenna Primary Care Provider DWAYNE MCDANIEL Primary Care Unavailable DWAYNE MCDANIEL Referring Unavailable RAYMOND CARDENAS Attending Unavailable YOBANI, ROSALINA A Primary Care Unavailable YOBANI, ROSALINA A Primary Care Unavailable LEVI CARLTON Attending Unavailable YOBANI, ROSALINA A Primary Care Unavailable JOB-OLES, GRETTA A Attending Unavailable YOBANI, ROSALINA A Primary Care Unavailable VEGA DOVE Attending Unavailable JOB-OLES, GRETTA A Referring Unavailable YOBANI, ROSALINA A Primary Care Unavailable YOBANI, ROSALINA A Attending Unavailable YOBANI, ROSALINA A Primary Care Unavailable YOBANI, ROSALINA A Attending Unavailable YOBANI, ROSALINA A Primary Care Unavailable MADISON DENNY Referring Unavailable YOBANI, ROSALINA A Primary Care Unavailable YOBANI, ROSALINA A Primary Care Unavailable LEIGHTON, NATAGEHA Attending Unavailable LEIGHTON, WAGEHA Primary Care Unavailable SELF Referring Unavailable DWAYNE MCDANIEL Attending Unavailable Rachel STOKES, Dr. West Primary Care Provider Dr. Jenna Ramos DO Referring Provider Arpita MEDINA, Dr. Wiseman Attending Provider Arun MEDINA, Dr. Andrade Attending Provider [phone] Ivone Palm MD Referring Provider Arun MEDINA, Dr. Andrade Referring Provider Troy MANUFACTURING SHIFT SUPERVISOR-C, Carline Attending Provider Troy MANUFACTURING SHIFT SUPERVISOR-C, Carline Referring Provider Sue, Tiara Referring Unavailable Sue, Tiara Attending Unavailable Shaub, Jenna Primary Care Unavailable Shaub, Jenna Referring Unavailable Arpita, Ivone Attending Unavailable Shaub, Jenna Primary Care Unavailable Shaub, Jenna Referring Unavailable Arpita, Ivone Attending Unavailable Jaydenub, Jenna Primary Care Unavailable Raymond Dias Attending Unavailable Ivone Palm Referring Unavailable Garcia, Praveen Primary Care Unavailable Sue, Tiara Referring Unavailable Sue, Tiara Attending Unavailable Arpita, Ivone Attending Unavailable Shaub, Jenna Primary Care Unavailable Arpita, Ivone Attending Unavailable Shaub, Jenna Primary Care Unavailable Arpita, Ivone Referring Unavailable Shaub, Jenna Primary Care Unavailable Raymond Dias Referring Unavailable Raymond Dias Attending Unavailable Brooklyn Palmia Attending Unavailable Shaub, Jenna Primary Care Unavailable Arpita, Ivone Referring Unavailable Shaub, Jenna Referring Unavailable Shaub, Jenna Primary Care Unavailable Troy MANUFACTURING SHIFT SUPERVISOR, Carline Attending Unavailable Shaub, Jenna Primary Care Unavailable Sue, Tiara Referring Unavailable Sue, Tiara Attending Unavailable Rhodhiss, Harshad Referring Unavailable Sohail, Harshad Attending Unavailable Garcia, Praveen Primary Care Unavailable Sohail, Harshad Attending Unavailable Sue, Tiara Referring Unavailable Emiliano Stone Attending Unavailabl e Shaub, Jenna Primary Care Unavailable Jhonny Guerrero Attending Unavailable Sue, Tiara Consulting Unavailable Sue, Tiara Referring Unavailable Sohail, Harshad Attending Unavailable Sohail, Harshad Consulting Unavailable Sohail, Harshad Referring Unavailable Shaub, Jenna Primary Care Unavailable Shaub, Jenna Primary Care Unavailable Madison Chakraborty Referring Unavailable Madison Chakraborty Attending Unavailable Rhodhiss, Harshad Referring Unavailable Sohail, Harshad Attending Unavailable Shaub, Jenna Primary Care Unavailable Shaub, Jenna Referring Unavailable Sue, Tiara Attending Unavailable Sue, Tiara Attending Unavailable Rhodhiss, Harshad Referring Unavailable Sohail, Harshad Attending Unavailable Shaub, Jenna Primary Care Unavailable Shaub, Jenna Primary Care Unavailable Sue, Tiara Referring Unavailable Sue, Tiara Attending Unavailable Shaub, Jenna Primary Care Unavailable Troy MANUFACTURING SHIFT SUPERVISOR, Carline Referring Unavailable Troy MANUFACTURING SHIFT SUPERVISOR, Carline Attending Unavailable MAKENNA GONGORA Attending Unavailable SHAUB, JENNA Primary Care Unavailable MAKENNA GONGORA Attending Unavailable SHAUB, JENNA Primary Care Unavailable MAKENNA GONGORA Attending Unavailable YOBANI, ROSALINA A Referring Unavailable LEIGHTON, WAGEHA Primary Care Unavailable MADISON DENNY Attending Unavailable YOBANI, ROSALINA A Primary Care Unavailable MISAEL WALL Admitting Unavailable MISAEL WALL Attending Unavailable YOBANI, ROSALINA A Primary Care Unavailable LEIGHTON, WAGEHA Referring Unavailable LEIGHTON, WAGEHA Primary Care Unavailable LEIGHTON, WAGEHA Primary Care Unavailable ADALBERTO BRYANT Attending Unavailable SHAUB, JENNA Referring Unavailable LEIGHTON, WAGEHA Primary Care Unavailable LEIGHTON, WAGEHA Primary Care Unavailable TAMRA GOVEA Attending Unavailable VOLCHKO, MISAEL Attending Unavailable LEIGHTON, WAGEHA Primary Care Unavailable SHAUB, JENNA Referring Unavailable LEIGHTON, WAGEHA Primary Care Unavailable SHAUB, JENNA Primary Care Unavailable VETO LINARES Attending Unavailable VETO LINARES Referring Unavailable SHAUB, JENNA Primary Care Unavailable SHAUB, JENNA Referring Unavailable SHAUB, JENNA Primary Care Unavailable MADISON DENNY Attending Unavailable SHAUB, JENNA Primary Care Unavailable SELF Referring Unavailable SHAUB, JENNA Primary Care Unavailable DIPTI SALMON JR Attending Unavailable SELF Referring Unavailable SHAUB, JENNA Primary Care Unavailable DIPTI SALMON JR Attending Unavailable SELF Referring Unavailable SHAUB, JENNA Primary Care Unavailable LIBBY WANG Attending Unavailable MICHELLE ROLON Referring Unavailable SHAUB, JENNA Primary Care Unavailable Allergies Allergy Classification Reported Allergen(s) Allergy Type Date of Onset Reaction(s) Facility (20 sources) Ketorolac; Translations: [KETOROLAC] Drug Allergy 03-16-2021 Swelling [facility] Comment on above: also tongue swelled (20 sources) Latex; Translations: [LATEX] Drug Allergy 03-16-2021 Rash [facility] (20 sources) Penicillins; Translations: [PENICILLINS] Drug Allergy 03-16-2021 Anaphylaxis [facility] (20 sources) Penicillins Drug Allergy 03-16-2021 Anaphylaxis [facility] (20 sources) Adhesive Tape-Silicones; Translations: [ADHESIVE TAPE-SILICONES] Drug Allergy 06-15-2022 [facility] (2 sources) Naproxen Drug Allergy 05-24-2023 [facility] (4 sources) Penicillins Allergy to substance 05-24-2023 [facility] (1 source) Ketorolac Drug Allergy 12-23-2024 [facility] (1 source) Latex Drug allergy (disorder) 12-23-2024 [facility] (1 source) Penicillins Drug allergy (disorder) 12-23-2024 [facility] (3 sources) Penicillins Drug Allergy 03-16-2021 Anaphylaxis [facility] Medications Current Medications Medication Drug Class(es) Dates Sig (Normalized) Sig (Original) amitriptyline hydrochloride 25 mg oral tablet (20 sources) Tricyclic Antidepressant Start: 08-28-2024 End: 09-27-2024 take 1 tablet by mouth once daily at bedtime amitriptyline (ELAVIL) 25 mg tablet Take 1 tablet by mouth daily at bedtime. 30 tablet 08/28/2024 Active Start: 05-31-2024 End: 08-28-2024 take 2 tablets by mouth at bedtime Amitriptyline 10 mg tablet Active 20 mg PO AT BEDTIME July 05, 2024 12:00am apixaban 5 mg oral tablet (20 sources) Factor Xa Inhibitor Start: 10-28-2024 take 1 tablet by mouth every twelve hours ELIQUIS 5 mg tab(s) Take 1 tablet by mouth every 12 hours. 10/28/2024 Active Start: 12-22-2021 End: 12-11-2024 take 1 tablet by mouth twice daily Apixaban (Eliquis) 5 mg tablet Active 5 mg PO TWICE A DAY June 02, 2022 12:00am Comment on above: Take 1 tablet by billy th twice daily. Take 5 mg by mouth t wice daily. Take 1 tablet by billy th two times a day. aspirin 81 mg delayed release oral tablet (1 source) Platelet Aggregation Inhibitor, Nonsteroidal Anti-inflammatory Drug Start: 07-05-20 Aspirin (Adult Low Dose Aspirin) 81 mg tablet,delayed release (DR/EC) Active 81 mg PO daily July 05, 2024 12:00am azithromycin 250 mg oral tablet (6 sources) Macrolide Antimicrobial Start: 08-16-20 End: 08-21-20 take 2 tablets by mouth once daily, then take 1 tablet by mouth once daily azithromycin (ZITHROMAX) 250 mg tablet Take 2 tablets by mouth once daily for 1 day, THEN 1 tablet once daily for 4 days. 6 tablet 08/16/2024 08/21/2024 Active Start: 02-12-2017 End: 06-02-2022 take 2 tablets by mouth once daily, then take 1 tablet by mouth once daily Azithromycin (Zithromax Z-Ritesh) 250 MG tablet Discontinued 250 mg PO DIRECTED February 12, 2017 12:00am June 02, 2022 2:35pm TAKE 2 TABLETS 1ST DAY THEN 1 TABLET DAILY FOR NEXT 4 DAYS. brompheniramine maleate 0.4 mg/ml / dextromethorphan hydrobromide 2 mg/ml / pseudoephedrine hydrochloride 6 mg/ml oral solution (1 source) alpha-Adrenergic Agonist, Uncompetitive U-qpngvr-Q-aspartate Receptor Antagonist, Sigma-1 Agonist Start: 09-23-2024 End: 09-30-2024 take 5 mL by mouth four times daily as needed Wimzszzwnidubfn-Nxhntcbjs-CB (BROMFED DM) 2-30-10 mg/5 mL syrup Indications: Respiratory illness with fever Take 5 mL by mouth four times a day as needed for up to 7 days. 120 mL 09/23/2024 09/30/2024 Active cefdinir 300 mg oral capsule (4 sources) Cephalosporin Antibacterial Start: 02-20-2025 End: 02-25-2025 take 1 capsule by mouth twice daily cefdinir (OMNICEF) 300 mg capsule Indications: Bacterial sinusitis , Headache, unspecified headache type Take 1 capsule by mouth two times a day for 5 days. 10 capsule 02/20/2025 02/25/2025 Active Start: 05-07-2024 End: 05-17-2024 take 1 capsule by mouth twice daily cefdinir (OMNICEF) 300 mg capsule Indications: Bacterial sinusitis Take 1 capsule by mouth two times a day for 10 days. 20 capsule 0 05/07/2024 05/17/2024 Active cream base no.103, bulk, crea (8 sources) Start: 05-18-2023 End: 05-17-2024 cream base no.103, bulk, crea Apply to affected area as directed. Apply 1-2 grams every 6-8 hours as needed for pain 180 g 11 05/18/2023 05/17/2024 Active Comment on above: Apply to affected ar ea as directed. Apply 1-2 grams every 6-8 hours as needed for pain cyclobenzaprine hydrochloride 10 mg oral tablet (9 sources) Muscle Relaxant Start: 02-02-2022 End: 03-23-2022 cyclobenzaprine (FLEXERIL) 10 mg tablet Take 10 mg by mouth as needed. 0 02/02/2022 03/23/2022 Discontinued (Course of therapy completed) Comment on above: Take 10 mg by mouth as needed. diazePAM 10 mg oral tablet (3 sources) Benzodiazepine Start: 05-18-2023 End: 05-19-2023 diazePAM (VALIUM) 10 mg tablet Indications: Sacroiliitis (HCC) Take 1 tablet by mouth as directed for 1 day. One the night and 2 hours before the procedure. 2 tablet 0 05/18/2023 05/19/2023 Active Comment on above: Take 1 tablet by billy as directed for 1 day. One the night and 2 hours before the procedure. dicyclomine hydrochloride 20 mg oral tablet (20 sources) Anticholinergic Start: 10-18-2022 End: 11-05-2024 take 1 tablet by mouth three times daily as needed for pain dicyclomine (BENTYL) 20 mg tablet TAKE ONE TABLET BY MOUTH THREE TIMES A DAY NEEDED FOR ABDOMINAL PAIN 270 tablet 1 02/23/2023 Active Comment on above: TAKE ONE TABLET THRE E TIMES A DAY NEEDED FOR ABDOMINAL PAIN TAKE ONE TABLET BY M OUTH THREE TIMES A DAY NEEDED FOR ABDOMINAL PAIN doxycycline hyclate 100 mg oral tablet (18 sources) Tetracycline-class Drug Start: 12-23-2024 take 1 capsule by mouth twice daily Doxycycline Hyclate 100 mg capsule Active 100 mg PO TWICE A DAY December 23, 2024 1:00am Start: 12-18-2024 End: 12-28-2024 take 1 capsule by mouth twice daily doxycycline hyclate (VIBRAMYCIN) 100 mg capsule Indications: Bacterial sinusitis Take 1 capsule by mouth two times a day for 10 days. 20 capsule 12/18/2024 12/28/2024 Active Start: 09-23-2024 End: 10-03-2024 take 1 capsule by mouth twice daily doxycycline hyclate (VIBRAMYCIN) 100 mg capsule Indications: Respiratory illness with fever Take 1 capsule (100 mg) by mouth two times a day for 10 days. 20 capsule 09/23/2024 10/03/2024 Active Start: 07-16-2024 End: 07-21-2024 take 1 capsule by mouth twice daily doxycycline hyclate (VIBRAMYCIN) 100 mg capsule Take 1 capsule (100 mg) by mouth two times a day for 5 days. 10 capsule 07/16/2024 07/21/2024 Active Start: 04-29-2024 End: 05-09-2024 take 1 capsule by mouth twice daily doxycycline hyclate (VIBRAMYCIN) 100 mg capsule Indications: Sinusitis, unspecified chronicity, unspecified location Take 1 capsule (100 mg) by mouth two times a day for 10 days. 20 capsule 0 04/29/2024 05/07/2024 Discontinued Start: 02-06-2024 End: 02-16-2024 take 1 capsule by mouth twice daily doxycycline hyclate (VIBRAMYCIN) 100 mg capsule Indications: Bacterial sinusitis Take 1 capsule by mouth two times a day for 10 days. 20 capsule 0 02/06/2024 02/16/2024 Active Start: 06-22-2023 End: 07-02-2023 take 1 capsule by mouth twice daily doxycycline hyclate (VIBRAMYCIN) 100 mg capsule Indications: Bacterial sinusitis Take 1 capsule by mouth twice daily for 10 days. 20 capsule 0 06/22/2023 07/02/2023 Active Start: 10-21-2022 End: 10-31-2022 take 1 capsule by mouth twice daily doxycycline monohydrate (MONODOX) 100 mg capsule Take 1 capsule by mouth twice daily for 10 days. 20 capsule 0 10/21/2022 10/31/2022 Active Comment on above: Take 1 capsule by [facility] twice daily for 10 days. Take 1 capsule by [facility] two times a day for 10 days. eletriptan 20 mg oral tablet (20 sources) Serotonin-1b and Serotonin-1d Receptor Agonist Start: 11-05-2024 take 1 tablet by mouth every hour as needed Eletriptan 20 mg tablet Active 0 PO .COMPLEX as needed November 05, 2024 1:54pm 40 mg take 1 tab at onset of headache; if no relief may repeat 1 tab after at least 2 hrs; max = 4 tabs/24 hr orally PRN; Start: 08-20-2024 eletriptan (RE LPAX) 40 mg tablet Indications: Chronic migraine without aura without status migrainosus, not intractable At migraine onset. may repeat in 2 hours if necessary 12 tablet 5 08/20/2024 Active Start: 06-29-2021 End: 11-05-2024 take 1 tablet by mouth every two hours Eletriptan 20 mg tablet Discontinued 0 PO .COMPLEX October 07, 2024 8:54am November 05, 2024 1:56pm 40 mg take 1 tab at onset of headache; if no relief may repeat 1 tab after at least 2 hrs; max = 4 tabs/24 hr PO Comment on above: Take 1 tablet by billy th as needed for Migraine Headache (see administration instructions). may repeat in 2 hours if necessary ergocalciferol 1.25 mg oral capsule (20 sources) Provitamin D2 Compound Start: End: take 1 capsule by mouth every week ergocalciferol 50,000 unit capsule (VITAMIN D2, DRISDOL) Indications: Vitamin D deficiency Take 1 capsule by mouth one time a week. Use as directed. 12 capsule 1 05/21/2023 Active Comment on above: Take 1 capsule by [facility] one time a week. Use as directed. ferrous sulfate 325 mg oral tablet (20 sources) Start: take 1 tablet by mouth once daily ferrous sulfate 325 mg (65 mg iron) tablet 1 tablet Orally Daily for 30 days 09/11/2024 Active Start: 10-22-2022 End: 05-18-2023 take 1 tablet by mouth twice daily at mealtime ferrous sulfate 325 mg (65 mg iron) tablet Indications: Iron deficiency anemia, unspecified iron deficiency anemia type TAKE 1 TABLET BY MOUTH TWICE A DAY WITH MEALS 60 tablet 2 11/21/2022 05/18/2023 Discontinued Comment on above: Take 1 tablet by billy twice daily with meals. TAKE 1 TABLET BY BILLY TWICE A DAY WITH MEALS fluticasone propionate 0.05 mg/actuat metered dose nasal spray (20 sources) Corticosteroid Start: 12-18-2024 fluticasone (FLONASE) 50 mcg/actuation nasal spray Indications: Bacterial sinusitis 1 spray per nostril twice daily as needed for symptoms. 1 Each 12/18/2024 Active Start: 09-12-2021 End: 08-20-2024 take 1 spray(s) nasal route once daily fluticasone (FLONASE) 50 mcg/actuation nasal spray USE 1 SPRAY IN EACH NOSTRIL ONCE DAILY 16 mL 1 08/15/2022 08/20/2024 Discontinued Comment on above: INSTILL ONE SPRAY IN TO EACH NOSTRIL ONCE A DAY USE 1 SPRAY IN EACH NOSTRIL ONCE DAILY gabapentin 100 mg oral capsule (20 sources) Anti-epileptic Agent Start: 07-05-2024 End: 11-05-2024 take 1 capsule by mouth three times daily Gabapentin 100 mg capsule Active 100 mg PO THREE TIMES A DAY November 05, 2024 1:54pm tid Start: 06-28-2024 End: 08-15-2024 take 2 capsules by mouth once daily at bedtime gabapentin (NEURONTIN) 100 mg capsule Take 2 capsules by mouth daily at bedtime for 30 days. 60 capsule 07/16/2024 Active ibuprofen 600 mg oral tablet (20 sources) Nonsteroidal Anti-inflammatory Drug Start: 06-02-2022 End: 11-05-2024 take 1 tablet by mouth three times daily as needed Ibuprofen 600 mg tablet Active 600 mg PO THREE TIMES A DAY as needed November 05, 2024 1:55pm Start: 03-08-2022 End: 06-14-2024 take 1 tablet by mouth every six hours at mealtime ibuprofen (MOTRIN) 600 mg tablet Take 1 tablet by mouth every 6 hours. Take with food. 60 tablet 03/08/2022 06/14/2024 Discontinued End: 03-08-2022 take 3 tablets by mouth three times daily ibuprofen (MOTRIN) 200 mg tablet Take 600 mg by mouth three times daily. 0 03/08/2022 Discontinued Comment on above: Take 600 mg by mouth three times daily. Take 1 tablet by billy th every 6 hours. Take with food. Insulin Syringe-Needle U-100 (BD INSULIN SYRINGE) 1 mL 25 x 1 syrg (14 sources) Start: 10-31-2022 End: 12-27-2022 Insulin Syringe-Needle U-100 (BD INSULIN SYRINGE) 1 mL 25 x 1 syrg Indications: Vitamin B12 deficiency 1 Each one time a week for 9 doses. 9 Each 0 10/31/2022 12/27/2022 Active Comment on above: 1 Each one time a we ek for 9 doses. iron sucrose 100 mg in NaCl 0.9% 100 mL (7 sources) Start: 11-09-2022 End: 11-24-2022 iron sucrose 100 mg in NaCl 0.9% 100 mL Indications: Deficiency of multiple nutrient elements , Other iron deficiency anemia Inject 100 mg intravenously one time a week for 3 doses. 3 Dose 0 11/09/2022 11/24/2022 Active Comment on above: Inject 100 mg intrav enously one time a week for 3 doses. ketoconazole 20 mg/ml topical cream (1 source) Azole Antifungal Start: 09-23-2024 End: 10-23-2024 ketoconazole (NIZORAL) 2 % cream Indications: Respiratory illness with fever Apply 1 application to affected area daily at bedtime. 60 g 1 09/23/2024 10/23/2024 Active levothyroxine sodium 0.112 mg oral capsule (20 sources) l-Thyroxine Start: 11-05-2024 Levothyroxine 112 mcg capsule Active 100 ug PO DAILY November 05, 2024 1:55pm Start: 09-11-2024 take 1 tablet by billy th once daily in the morning levothyroxine (SYNTHROID) 112 mcg tablet Take 112 mcg by mouth every morning. Take On an Empty Stomach 09/11/2024 Active Start: 07-16-2024 End: 10-14-2024 take 1 tablet by mouth once daily levothyroxine (SYNTHROID) 125 mcg tablet Take 1 tablet by mouth once daily. 90 tablet 07/16/2024 09/23/2024 Discontinued Start: 06-02-2022 End: 11-05-2024 take 1 capsule by mouth once daily Levothyroxine 112 mcg capsule Discontinued 112 ug PO DAILY June 02, 2022 12:00am November 05, 2024 1:56pm Start: 11-22-2021 End: 07-16-2024 levothyroxine (SYNTHROID) 11 2 mcg tablet Indications: Hypothyroidism, unspecified type take 1 tablet daily 90 tablet 3 05/20/2024 07/16/2024 Discontinued Comment on above: TAKE 1 TABLET BY BILLY TH EVERY DAY Take 1 tablet by billy th once daily. liothyronine sodium 0.005 mg oral tablet (1 source) l-Triiodothyronine Start: 04-08-20 25 liothyronine (CYTOMEL) 5 mcg tablet 04/08/2025 Active methocarbamol 500 mg oral tablet (6 sources) Muscle Relaxant Start: 11-04-19 End: 11-18-19 take 1 tablet by mouth three times daily methocarbamol (ROBAXIN) 500 mg tablet Indications: Acute right-sided low back pain with right-sided sciatica Take 1 tablet by mouth three times daily for 14 days. 42 tablet 0 11/04/2022 11/18/2022 Active Comment on above: Take 1 tablet by billy th three times daily for 14 days. montelukast 10 mg oral tablet (6 sources) Leukotriene Receptor Antagonist Start: 10-08-20 End: 02-21-20 take 1 tablet by mouth at bedtime Montelukast (Singulair) 10 mg tablet Active 10 mg PO AT BEDTIME October 08, 2024 1:00am ondansetron 4 mg disintegrating oral tablet (20 sources) Serotonin-3 Receptor Antagonist Start: 02-21-20 End: 02-26-20 take 1 tablet by mouth every eight hours as needed ondansetron orally disintegrating (ZOFRAN ODT) 4 mg disintegrating tablet Take 1 tablet by mouth every 8 hours as needed for nausea/vomiting for up to 5 days. 15 tablet 02/20/2025 02/25/2025 Active Start: 10-07-2024 End: 11-05-2024 take 1 tablet by mouth every six hours as needed Ondansetron Hcl 4 mg tablet Active 4 mg PO EVERY 6 HOURS as needed November 05, 2024 1:55pm with eletriptan Start: 09-22-2021 End: 09-23-2024 take 1 tablet by mouth every eight hours as needed for nausea ondansetron orally disintegrating (ZOFRAN ODT) 4 mg disintegrating tablet Indications: Migraine with aura and without status migrainosus, not intractable Take 1 tablet by mouth every 8 hours as needed for nausea/vomiting. 30 tablet 5 07/16/2024 09/23/2024 Discontinued take 1 tablet by billy th once daily ondansetron orally disintegrating (ZOFRAN ODT) 4 mg disintegrating tablet 1 tablet on the tongue and allow to dissolve Orally Once a day Active Comment on above: Take 1 tablet by billy th every 8 hours as needed for nausea/vomiting. oxyCODONE hydrochloride 5 mg oral tablet (4 sources) Opioid Agonist Start: End: take 1 tablet by mouth every eight hours as needed for pain oxyCODONE IR (ROXICODONE) 5 mg immediate release tablet Indications: Acute postoperative pain Take 1 tablet by mouth every 8 hours as needed for pain. 10 tablet 0 03/08/2022 03/23/2022 Discontinued (Course of therapy completed) Comment on above: Take 1 tablet by billy th every 8 hours as needed for pain. pantoprazole 40 mg delayed release oral tablet (20 sources) Proton Pump Inhibitor Start: End: pantoprazole DR (PROTONIX) 40 mg tablet TAKE 1 TABLET DAILY 90 tablet 3 09/05/2024 Active Comment on above: TAKE 1 TABLET BY BILLY TH EVERY DAY 30 MIN BEFORE A MEAL TAKE 1 TABLET BY BILLY TH DAILY 30 MINUTES BEFORE A MEAL Take 1 tablet by billy th once daily. phenazopyridine hydrochloride 200 mg oral tablet (1 source) Start: End: take 1 tablet by mouth three times daily as needed for pain phenazopyridine (PYRIDIUM) 200 mg tablet Indications: Acute cystitis without hematuria Take 1 tablet by mouth three times daily as needed for pain for up to 3 days. 9 tablet 0 08/02/2022 08/05/2022 Active Comment on above: Take 1 tablet by billy th three times daily as needed for pain for up to 3 days. polyethylene glycol 3350 66376 mg powder for oral solution (20 sources) Osmotic Laxative Start: Polyethylene Glycol 3350 (Miralax) 17 gram/dose powder Active 4 g PO DAILY June 02, 2022 12:00am Start: 01-03-2022 polyethylene g lycol 3350 (MIRALAX, GLYCOLAX) 17 gram/dose powder Take 17 g by mouth once daily. 510 g 4 01/03/2022 Active Comment on above: Take 17 g by mouth o nce daily. predniSONE 20 mg oral tablet (17 sources) Start: 02-20-2025 End: 02-25-2025 take 1 tablet by mouth once daily predniSONE (DELTASONE) 20 mg tablet Indications: Bacterial sinusitis , Headache, unspecified headache type Take 1 tablet by mouth once daily for 5 days. 5 tablet 02/20/2025 02/25/2025 Active Start: 08-16-2024 End: 08-19-2024 take 1 tablet by mouth three times daily predniSONE (DELTASONE) 20 mg tablet Take 1 tablet by mouth three times a day for 3 days. 9 tablet 08/16/2024 08/19/2024 Active Start: 05-07-2024 End: 05-12-2024 take 1 tablet by mouth twice daily predniSONE (DELTASONE) 20 mg tablet Indications: Bacterial sinusitis Take 1 tablet by mouth two times a day for 5 days. 10 tablet 0 05/07/2024 05/12/2024 Active Start: 04-02-2024 End: 05-04-2024 take 1 tablet by mouth twice daily predniSONE (DELTASONE) 20 mg tablet Indications: Eustachian tube dysfunction, bilateral Take 1 tablet by mouth two times a day. 10 tablet 04/02/2024 04/29/2024 Discontinued Start: 02-06-2024 End: 02-11-2024 take 1 tablet by mouth twice daily predniSONE (DELTASONE) 20 mg tablet Indications: Bacterial sinusitis Take 1 tablet by mouth two times a day for 5 days. 10 tablet 0 02/06/2024 02/11/2024 Active Start: 05-19-2023 End: 05-24-2023 take 1 tablet by mouth twice daily predniSONE (DELTASONE) 20 mg tablet Indications: Bacterial sinusitis Take 1 tablet by mouth twice daily for 5 days. 10 tablet 0 05/19/2023 05/24/2023 Active Comment on above: Take 1 tablet by billy th twice daily for 5 days. Take 1 tablet by billy th two times a day for 5 days. rimegepant 75 mg disintegrating oral tablet (6 sources) Start: 12-23-2024 take 1 tablet by mouth once as needed Rimegepant (Nurtec Odt) 75 mg tablet,disintegrati ng Active 75 mg PO ONCE as needed December 23, 2024 1:00am as a single dose Start: 11-27-2024 take 1 tablet by billy th every other day rimegepant (NURTEC ODT) 75 mg disintegrating tablet Indications: Migraine without aura and without status migrainosus, not intractable Take 1 tablet by mouth every other day. For migraine prevention 16 tablet 5 11/27/2024 Active sulfamethoxazole 800 mg / trimethoprim 160 mg oral tablet (5 sources) Dihydrofolate Reductase Inhibitor Antibacterial, Sulfonamide Antimicrobial Start: 04-09-2025 End: 04-19-2025 take 1 tablet by mouth twice daily sulfamethoxazole-trimethoprim (BACTRIM DS) 800-160 mg per tablet Indications: Dysuria , Acute non-recurrent maxillary sinusitis Take 1 tablet by mouth two times a day for 10 days. 20 tablet 04/09/2025 04/19/2025 Active Start: 05-19-2023 End: 05-26-2023 take 1 tablet by mouth twice daily sulfamethoxazole-trimethoprim (BACTRIM D S) 800-160 mg per tablet Indications: Bacterial sinusitis Take 1 tablet by mouth twice daily for 7 days. 14 tablet 0 05/19/2023 05/26/2023 Active Start: 03-17-2022 End: 03-20-2022 take 1 tablet by mouth twice daily sulfamethoxazole-trimethoprim (BACTRIM D S) 800-160 mg per tablet Take 1 tablet by mouth twice daily for 3 days. 6 tablet 0 03/17/2022 03/20/2022 Active Comment on above: Take 1 tablet by billy th twice daily for 3 days. Take 1 tablet by billy th twice daily for 7 days. tiZANidine 4 mg oral tablet (20 sources) Central alpha-2 Adrenergic Agonist Start: 06-02-2022 End: 11-05-2024 take 1 tablet by mouth at bedtime as needed Tizanidine 4 mg tablet Active 4 mg PO AT BEDTIME as needed November 05, 2024 1:55pm Start: 05-26-2022 End: 12-26-2024 take 1 tablet by mouth three times daily as needed tiZANidine (ZANAFLEX) 4 mg tablet Indications: Myofascial pain syndrome Take 0.5-1 tablets by mouth three times a day as needed (muscle spasms). 90 tablet 3 08/28/2024 Active Comment on above: TAKE 1 TABLET BY BILLY TH THREE TIMES A DAY NEEDED FOR PAIN Take 0.5-1 tablets b y mouth every 8 hours as needed. Take 4 mg by mouth e very 8 hours as needed. TAKE 1/2 TO 1 TABLET BY MOUTH EVERY 8 HOURS NEEDED Take 0.5-1 tablets b y mouth three times daily as needed. topiramate 100 mg oral tablet (20 sources) Start: 12-30-2021 End: 09-05-2024 topiramate (TOPAMAX) 100 mg tablet TAKE 1 TABLET TWICE A DAY 180 tablet 3 09/05/2024 Active Comment on above: TAKE 1 TABLET BY BILLY TH TWICE A DAY Take 1 tablet by billy th twice daily. Take 1 tablet by billy th two times a day. Completed/Discontinued Medications Medication Drug Class(es) Dates Sig (Normalized) Sig (Original) acetaminophen 500 mg oral tablet (20 sources) Start: 03-08-2022 take 2 tablets by mouth every six hours acetaminophen (TYLENOL EXTRA STRENGTH) 500 mg tablet Take 2 tablets by mouth every 6 hours. 60 tablet 0 03/08/2022 Active Comment on above: Take 2 tablets by mo uth every 6 hours. Biotin (20 sources) End: 05-07-2024 take 1 capsule by mouth once daily BIOTIN ORAL Take 1 capsule by mouth once daily. 05/07/2024 Discontinued End: 05-07-2024 take 1 capsule by mouth once daily BIOTIN ORAL Take 1 capsule by mouth once daily. 0 05/07/2024 Discontinued take 1 capsule by mo uth once daily BIOTIN ORAL Take 1 capsule by mouth once daily. 0 Active Comment on above: Take 1 capsule by mo uth once daily. cephalexin 500 mg oral capsule (10 sources) Cephalosporin Antibacterial Start: 04-27-20 End: 06-15-20 take 1 capsule by mouth twice daily cephALEXin (KEFLEX) 500 mg capsule TAKE 1 CAPSULE BY MOUTH TWICE A DAY FOR 7 DAYS 0 04/27/2022 06/15/2022 Discontinued Comment on above: TAKE 1 CAPSULE BY MO UTH TWICE A DAY FOR 7 DAYS DULoxetine 60 mg delayed release oral capsule (13 sources) Serotonin and Norepinephrine Reuptake Inhibitor Start: 06-05-20 End: 12-02-19 take 1 capsule by mouth once daily DULoxetine (CYMBALTA) 60 mg capsule Indications: Adjustment disorder with mixed anxiety and depressed mood Take 1 capsule by mouth once daily. 30 capsule 5 06/05/2024 06/14/2024 Discontinued Start: 05-07-2024 End: 07-06-2024 take 1 capsule by mouth once daily DULoxetine (CYMBALTA) 30 mg capsule Indications: Adjustment disorder with mixed anxiety and depressed mood , Other migraine without status migrainosus, not intractable Take 1 capsule by mouth once daily. 30 capsule 1 05/07/2024 06/05/2024 Discontinued 0.6 ml enoxaparin sodium 100 mg/ml prefilled syringe (5 sources) Low Molecular Weight Heparin Start: 02-21-2022 inject 0.562 mL by subcutaneous injection every twelve hours enoxaparin (LOVENOX) 60 mg/0.6 mL syrg Inject 0.562 mL subcutaneously every 12 hours. 180 mL 0 02/21/2022 Active Comment on above: Inject 0.562 mL subc utaneously every 12 hours. 1 ml erenumab-aooe 70 mg/ml auto-injector (10 sources) Start: 08-20-2024 End: 11-27-2024 inject 70 mg by subcutaneous injection every month AIMOVIG AUTOINJECTOR 70 mg/mL auto-injector Inject 70 mg subcutaneously once every month. 09/16/2024 11/27/2024 Discontinued methylPREDNISolone 4 mg oral tablet (12 sources) Corticosteroid Start: 11-04-2022 End: 11-09-2022 methylPREDNISolone (MEDROL) 4 mg Indications: Acute right-sided low back pain with right-sided sciatica 3 tablets with breakfast and 2 tablets with lunch x 7 days 35 tablet 0 11/04/2022 11/09/2022 Discontinued Start: 05-03-2022 End: 06-15-2022 methylPREDNISolone (MEDROL, RITESH,) 4 mg Dose-Pack Indications: Left sided sciatica As Instructed per package 1 Package 0 05/03/2022 06/15/2022 Discontinued Start: 05-03-2022 methylPREDNISo lone (MEDROL, RITESH,) 4 mg Dose-Pack Indications: Left sided sciatica As Instructed per package 1 Package 0 05/03/2022 Active Comment on above: As Instructed per praveena weissage 3 tablets with break fast and 2 tablets with lunch x 7 days nitrofurantoin, macrocrystals 25 mg / nitrofurantoin, monohydrate 75 mg oral capsule (6 sources) Nitrofuran Antibacterial Start: 08-02-20 End: 10-21-20 take 1 capsule by mouth twice daily nitrofurantoin monohydrate and macrocrystal (MACROBID) 100 mg capsule Indications: Acute cystitis without hematuria Take 1 capsule by mouth twice daily. 14 capsule 0 08/02/2022 10/21/2022 Discontinued Comment on above: Take 1 capsule by [facility] twice daily. oxymetazoline hydrochloride 0.5 mg/ml nasal spray (4 sources) Start: 02-13-20 17 End: 06-02-20 Oxymetazoline (Afrin (Bkc)) 1 SPRAY spray,non-aerosol Discontinued 15 NMA NASAL TWICE DAILY NEEDED as needed for Congestion February 12, 2017 8:56am June 02, 2022 2:36pm Start: 02-12-2017 End: 06-02-2022 Oxymetazoline (Afrin (Bkc)) 1 SPRAY spray,non-aerosol Discontinued 15 SPRAY NASAL TWICE DAILY NEEDED February 12, 2017 7:56am June 02, 2022 1:36pm polyethylene glycol 3350 429179 mg / potassium chloride 2970 mg / sodium bicarbonate 6740 mg / sodium chloride 5860 mg / sodium sulfate 68902 mg powder for oral solution (1 source) Osmotic Laxative Start: 11-02-2022 End: 11-02-2022 peg 3350-Electrolytes (GOLYTELY) 236-22.74-6.74 -5.86 gram suspension Take 4,000 mL by mouth one time only for 1 dose. 1 Each 0 11/02/2022 11/02/2022 Comment on above: Take 4,000 mL by billy th one time only for 1 dose. sennosides, [facility] living 8.6 mg oral tablet (20 sources) Start: 03-08-2022 End: 06-15-2022 take 1 tablet by mouth twice daily senna (SENNA) 8.6 mg tab Take 1 tablet by mouth twice daily. 60 tablet 0 03/08/2022 06/15/2022 Discontinued (Course of therapy completed) Comment on above: Take 1 tablet by billy th twice daily. traMADol hydrochloride 50 mg oral tablet (10 sources) Opioid Agonist Start: 05-03-2022 End: 06-15-2022 take 1 tablet by mouth every eight hours as needed for pain traMADol (ULTRAM) 50 mg tablet Indications: Left sided sciatica Take 1 tablet by mouth every 8 hours as needed for pain. 12 tablet 0 05/03/2022 06/15/2022 Discontinued Comment on above: Take 1 tablet by billy th every 8 hours as needed for pain. vitamin b12 1 mg/ml injectable solution (20 sources) Vitamin B12 Start: 01-17-2023 inject 1 mL by intramuscular injection every week, then inject 1 mL by intramuscular injection every month cyanocobalamin 1,000 mcg/mL Indications: Vitamin B 12 deficiency INJECT 1ML (1000MCG) IM ONCE A WEEK FOR 4 WEEKS THE INJECT 1ML, IM ONCE A MONTH FOR 5 MONTHS 6 mL 1 01/17/2023 Active Start: 10-22-2022 End: 01-17-2023 cyanocobalamin 1,000 mcg/mL Indications: Vitamin B 12 deficiency Once a week IM for 4 weeks, then once a month for 5 months 9 Each 0 10/22/2022 01/17/2023 Discontinued Comment on above: Once a week IM for 4 weeks, then once a month for 5 months INJECT 1ML (1000MCG) IM ONCE A WEEK FOR 4 WEEKS THE INJECT 1ML, IM ONCE A MONTH FOR 5 MONTHS Problems Active Problems Problem Classification Problem Date Documented Da te Episodic/Chronic Adjustment disorders (20 sources) Adjustment disorder with mixed anxiety and depressed mood; Translations: [Adjustment disorder with mixed anxiety and depressed mood] Onset: 4 05-07-2024 Chronic Administrative/social admission (2 sources) Education and/or schooling finding; Translations: [Problems related to education and literacy, unspecified] Episodic Anxiety disorders (4 sources) Anxiety; Translations: [Anxiety disorder, unspecified] Onset: 4 07-05-2024 Chronic Coagulation and hemorrhagic disorders (7 sources) Protein C deficiency disease; Translations: [Other primary thrombophilia] Onset: 5 07-05-2024 Chronic Deficiency and other anemia (1 source) Microcytic anemia; Translations: [Iron deficiency anemia, unspecified] Episodic Deficiency and other anemia (3 sources) Iron deficiency anemia; Translations: [Other iron deficiency anemias] Episodic Deficiency and other anemia (1 source) Anemia; Translations: [Anemia, unspecified] Episodic Diabetes mellitus without complication (1 source) Increased glucose level; Translations: [Other abnormal glucose] Episodic Endometriosis (1 source) Endometriosis (clinical); Translations: [Endometriosis, unspecified] Chronic Esophageal disorders (4 sources) Gastroesophageal reflux disease; Translations: [Gastro-esophageal reflux disease without esophagitis] Onset: 4 10-07-2024 Chronic Genitourinary symptoms and ill-defined conditions (20 sources) Dysuria; Translations: [Dysuria] Onset: 2 Episodic Headache; including migraine (20 sources) Migraine; Translations: [Migraine, unspecified, not intractable, without status migrainosus] Onset: 4 03-16-2021 Chronic Headache; including migraine (2 sources) Headache; including migraine; Translations: [Chronic daily headache] Onset: 4 Immunity disorders (5 sources) Immunoglobulin A deficiency; 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]] Onset: 5 Chronic Malaise and fatigue (2 sources) Fatigue; Translations: [Other fatigue] Episodic Melanomas of skin (20 sources) Malignant melanoma; Translations: [Malignant melanoma of skin, unspecified] Onset: 1 03-16-2021 Chronic Melanomas of skin (2 sources) H/O Malignant melanoma; Translations: [Personal history of malignant melanoma of skin] 10-07-2024 Episodic Nutritional deficiencies (1 source) Vitamin D deficiency; Translations: [Vitamin D deficiency, unspecified] 05-21-2023 Chronic Nutritional deficiencies (3 sources) Cobalamin deficiency; Translations: [Deficiency of other specified B group vitamins] Episodic Other aftercare (4 sources) Drug therapy finding; Translations: [rn long term care (current) use of anticoagulants] 08-02-2013 Episodic Other aftercare (1 source) Follow-up status; Translations: [Encounter for follow-up examination after completed treatment for conditions other than malignant neoplasm] 05-07-2024 Episodic Other and unspecified benign neoplasm (2 sources) Leiomyoma; Translations: [Benign neoplasm of connective and other soft tissue, unspecified] Episodic Other bone disease and musculoskeletal deformities (1 source) Osteopenia; Translations: [Other specified disorders of bone density and structure, unspecified site] 10-07-2024 Episodic Other connective tissue disease (1 source) Pain in calf; Translations: [Pain in left lower leg] 07-05-2024 Episodic Other diseases of veins and lymphatics (2 sources) Occlusion of iliac vein; Translations: [Compression of vein] 07-26-2023 Episodic Other endocrine disorders (1 source) Other ovarian dysfunction; Translations: [Other ovarian dysfunction] Onset: 5 Chronic Other female genital disorders (1 source) Abnormal uterine bleeding; Translations: [Abnormal uterine and vaginal bleeding, unspecified] Chronic Other gastrointestinal disorders (2 sources) Altered bowel function; Translations: [Change in bowel habit] Episodic Other gastrointestinal disorders (3 sources) Change in bowel habit; Translations: [Change in bowel habits] Onset: 3 Episodic Other hematologic conditions (20 sources) H/O: blood disorder; Translations: [Personal history of diseases of the blood and blood-forming organs and certain disorders involving the immune mechanism] 03-16-2021 Episodic Other hematologic conditions (3 sources) History of anemia; Translations: [Personal history of diseases of the blood and blood-forming organs and certain disorders involving the immune mechanism] Episodic Other infections; including parasitic (1 source) Personal history of other infectious and parasitic diseases; Translations: [History of COVID-19] 05-19-2023 Episodic Other liver diseases (1 source) High lipase level in serum; Translations: [Abnormal levels of other serum enzymes] Episodic Other lower respiratory disease (2 sources) Chest pain on breathing; Translations: [Chest pain on breathing] 04-29-2024 Episodic Other lower respiratory disease (2 sources) Disorder of respiratory system; Translations: [Respiratory disorder, unspecified] 09-23-2024 Episodic Other nervous system disorders (20 sources) Chronic pain syndrome; Translations: [Chronic pain syndrome] Onset: 4 12-04-2023 Chronic Other nervous system disorders (2 sources) Chronic pain syndrome; Translations: [Chronic pain syndrome] Onset: 4 Chronic Other non-traumatic joint disorders (2 sources) Pain in right hip joint; Translations: [Pain in right hip] Episodic Other non-traumatic joint disorders (1 source) Joint pain; Translations: [Pain in unspecified joint] 06-14-2024 Episodic Other upper respiratory disease (1 source) Nasal sinus problem; Translations: [Other specified disorders of nose and nasal sinuses] 06-05-2024 Episodic Other upper respiratory disease (2 sources) Other specified disorders of nose and nasal sinuses; Translations: [Sinus drainage] Onset: 4 Episodic Other upper respiratory disease (2 sources) Pain in face; Translations: [Other specified disorders of nose and nasal sinuses] 10-07-2024 Episodic Other upper respiratory infections (20 sources) Bacterial sinusitis; Translations: [Chronic sinusitis, unspecified] Onset: 4 Chronic Phlebitis; thrombophlebitis and thromboembolism (6 sources) 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; Translations: [Chronic embolism and thrombosis of left femoral vein] Onset: 4 Chronic Residual codes; unclassified (1 source) Postoperative state; Translations: [Other specified postprocedural states] Episodic Spondylosis; intervertebral disc disorders; other back problems (20 sources) Inflammation of sacroiliac joint; Translations: [Sacroiliitis, not elsewhere classified] Onset: 4 05-18-2023 Chronic Thyroid disorders (20 sources) Hypothyroidism; Translations: [Hypothyroidism, unspecified] Onset: 1 11-03-2021 Chronic Unclassified (2 sources) Headaches; Translations: [Headaches] Onset: 4 Unclassified (2 sources) Sinus pain; Translations: [J34.89 - Other specified disorders of nose and nasal sinuses] Unclassified (1 source) Protein C deficiency Unclassified (1 source) D68.59 - Other primary thrombophilia,Z86.718 - Personal history of other venous thrombosis and embolism Unclassified (1 source) Established Patient Onset: 5 Urinary tract infections (1 source) Acute cystitis; Translations: [Acute cystitis without hematuria] Episodic Past or Other Problems Problem Classification Problem Date Documented Da te Episodic/Chronic Abdominal pain (20 sources) Abdominal pain; Translations: [Unspecified abdominal pain] Onset: 10-18-2022 Episodic Bacterial infection; unspecified site (2 sources) Other specified bacterial agents as the cause of diseases classified elsewhere; Translations: [Bacterial sinusitis] Onset: 02-06-2024 Episodic Cardiac dysrhythmias (3 sources) Palpitations; Translations: [Palpitations] Onset: 07-12-2024 07-05-2024 Episodic Deficiency and other anemia (1 source) Iron deficiency anemia, unspecified; Translations: [Microcytic anemia] Onset: 10-21-2022 Episodic Deficiency and other anemia (1 source) Anemia, unspecified; Translations: [Anemia, unspecified type] Onset: 01-16-2023 Episodic Fever of unknown origin (1 source) Fever, unspecified; Translations: [Respiratory illness with fever] Onset: 09-23-2024 Episodic Fluid and electrolyte disorders (3 sources) Low serum potassium level - finding; Translations: [Hypokalemia] Onset: 06-14-2024 06-14-2024 Episodic Headache; including migraine (20 sources) Headache; Translations: [Headaches] Onset: 06-14-2024 06-14-2024 Episodic Immunizations and screening for infectious disease (5 sources) Tuberculosis screening status; Translations: [Encounter for screening for respiratory tuberculosis] Onset: 07-16-2024 Episodic Nausea and vomiting (2 sources) Nausea; Translations: [Nausea] Onset: 02-20-2025 02-20-2025 Episodic Nonspecific chest pain (2 sources) Tight chest; Translations: [Other chest pain] Onset: 05-07-2024 05-07-2024 Episodic Other aftercare (20 sources) 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; Translations: [rn long term care (current) use of systemic steroids] Onset: 07-16-2024 07-16-2024 Episodic Other aftercare (1 source) intermediate (current) use of systemic steroids; Translations: [intermediate systemic steroid user] Onset: 07-16-2024 Episodic Other aftercare (1 source) Encounter for follow-up examination after completed treatment for conditions other than malignant neoplasm; Translations: [Follow-up exam] Onset: 05-07-2024 Episodic Other aftercare (1 source) rn long term care (current) use of anticoagulants; Translations: [intermediate (current) use of anticoagulants] Onset: 08-05-2024 Episodic Other connective tissue disease (20 sources) Pain in left lower limb; Translations: [Pain in left leg] Onset: 06-14-2022 Episodic Other connective tissue disease (20 sources) Pain in right lower limb; Translations: [Pain in right leg] Onset: 06-14-2022 Episodic Other connective tissue disease (20 sources) Myofascial pain syndrome; Translations: [Myalgia, other site] Onset: 06-14-2022 Episodic Other connective tissue disease (2 sources) Myalgia, other site; Translations: [Myofascial pain syndrome] Onset: 06-14-2022 Episodic Other connective tissue disease (1 source) Pain in left lower leg; Translations: [Pain in left lower leg] Onset: 08-21-2024 Episodic Other connective tissue disease (1 source) Neuralgia and neuritis, unspecified; Translations: [Neuralgia and neuritis, unspecified] Onset: 08-15-2024 Episodic Other diseases of veins and lymphatics (5 sources) Compression of vein; Translations: [Compression of vein] Onset: 08-05-2024 07-06-2023 Episodic Other hematologic conditions (3 sources) Personal history of diseases of the blood and blood-forming organs and certain disorders involving the immune mechanism; Translations: [H/O protein C deficiency] Onset: 03-16-2021 Episodic Other liver diseases (1 source) Abnormal levels of other serum enzymes; Translations: [Elevated lipase] Onset: 10-21-2022 Episodic Other lower respiratory disease (1 source) Chest pain on breathing; Translations: [Chest pain on respiration] Onset: 04-29-2024 Episodic Other lower respiratory disease (1 source) Respiratory disorder, unspecified; Translations: [Respiratory illness with fever] Onset: 09-23-2024 Episodic Other non-traumatic joint disorders (1 source) Pain in right hip; Translations: [Right hip pain] Onset: 11-09-2022 Episodic Other non-traumatic joint disorders (2 sources) Pain in unspecified joint; Translations: [Arthralgia, unspecified joint] Onset: 06-14-2024 Episodic Other nutritional; endocrine; and metabolic disorders (1 source) Personal history of other endocrine, nutritional and metabolic disease; Translations: [Personal history of nutritional deficiency] Onset: 09-07-2024 Episodic Other screening for suspected conditions (not mental disorders or infectious disease) (4 sources) Encounter for screening mammogram for malignant neoplasm of breast; Translations: [Encounter for other screening for malignant neoplasm of breast] Onset: 06-14-2024 Episodic Other skin disorders (20 sources) Loss of hair; Translations: [Nonscarring hair loss, unspecified] Onset: 07-16-2024 07-16-2024 Episodic Other skin disorders (20 sources) Trachyonychia; Translations: [Nail dystrophy] Onset: 07-16-2024 07-16-2024 Episodic Other skin disorders (2 sources) Nonscarring hair loss, unspecified; Translations: [Hair thinning] Onset: 07-16-2024 Episodic Other skin disorders (1 source) Nail dystrophy; Translations: [Brittle nails] Onset: 07-16-2024 Episodic Other upper respiratory infections (3 sources) Acute maxillary sinusitis; Translations: [Acute maxillary sinusitis, unspecified] Onset: 08-16-2024 08-16-2024 Episodic Otitis media and related conditions (2 sources) Dysfunction of bilateral eustachian tubes; Translations: [Unspecified Eustachian tube disorder, bilateral] Onset: 04-02-2024 04-02-2024 Episodic Phlebitis; thrombophlebitis and thromboembolism (20 sources) H/O: Deep vein thrombosis; Translations: [Personal history of other venous thrombosis and embolism] Onset: 10-04-2021 10-04-2021 Episodic Screening and history of mental health and substance abuse codes (20 sources) Patient encounter status; Translations: [Encounter for screening examination for mental health and behavioral disorders, unspecified] Onset: 04-02-2024 04-02-2024 Episodic Spondylosis; intervertebral disc disorders; other back problems (20 sources) Sciatica; Translations: [Sciatica, left side] Onset: 06-14-2022 Episodic Comment on above: T4/T5 fracture at 15 Sprains and strains (1 source) Strain of muscle and tendon of front wall of thorax, initial encounter; Translations: [Muscle strain of chest wall, initial encounter] Onset: 05-02-2024 Episodic Syncope (4 sources) Syncope; Translations: [Syncope and collapse] Onset: 09-07-2024 07-05-2024 Episodic Results Test Name Value Interpretation Reference Range Facility Estradiol SerPl-mCncon 05-21 E2 [Mass/Vol] 158 pg/mL Normal See comment [facility] Comment on above: Order Comment: Alejandro mcmanus Type: BLOOD SPECIMEN Ordering Facility: [facility] Address: [address] [place] [address] Result Comment: Foll icular Phase (-12 to -4 days): 19.5 - 144.2 pg/mL Midcycle Phase (-3 to +2 days): 63.9 - 356.7 pg/mL Luteal Phase (+4 to +12 days): 55.8 - 214.2 pg/mL Post-menopausal females: 0 - 32.2 pg/mL Performed By: #### 1 1572-5 #### [facility] CLIA [id number] [facility] [place] [address] [place] Progest SerPl-mCncon 025 Progesterone [Mass/Vol] 3.2 ng/mL Normal See comment [facility] Comment on above: Order Comment: Speci men Type: BLOOD SPECIMEN Ordering Facility: [facility] Address: [address] [place], [place] [id number] Result Comment: Mens trual Cycle Progesterone Reference Ranges: Follicular: 0.1 - 1.4 ng/mL Luteal: 3.3 - 25.6 ng/mL Mid-luteal: 4.4 - 28.0 ng/mL Postmenopausal: 0.0 - 0.7 ng/mL Progesterone Reference Ranges vary by gestational period: First Trimester: 11.2 - 90.0 ng/mL Second Trimester: 25.5 - 89.4 ng/mL Third Trimester: 48.4 - 422.5 ng/mL The presence of DHEA-S (a metabolite of DHEA, a steroid hormone that may be used as part of in vitro fertilization (IVF) protocols to improve ovarian response and IVF treatment outcomes), causes falsely elevated progesterone results around the clinically important decision level of 1 ng/mL of progesterone, on the [employer] assay. For patients taking DHEA supplements, an alternate methodology should be used to measure progesterone concentrations. Performed By: #### 1 1572-5 #### [facility] CLIA [id number] [address] [place] [address] [place] T3Free SerPl-mCncon 05-21-20 25 Free T3 [Mass/Vol] 2.7 pg/mL Normal 2.2-4.0 [facility] Comment on above: Order Comment: Speci men Type: BLOOD SPECIMEN Ordering Facility: [facility] Address: [address] [place], [place] [id number] Performed By: #### 1 1572-5 #### [facility] CLIA [id number] [address] [place] [address] [place] T4 Free SerPl-mCncon 05-21- 025 Free T4 [Mass/Vol] 1.1 ng/dL Normal 0.8-1.5 [facility] Comment on above: Order Comment: Speci men Type: BLOOD SPECIMEN Ordering Facility: [facility] Address: [address] [address] Performed By: #### 1 1572-5 #### [facility] CLIA [id number] [address] [place] [address] [place] TSH SerPl-aCncon 05-21-2025 TSH Qn 1.459 m[IU]/L Normal 0.358-3.74 0 [facility] Comment on above: Order Comment: Speci men Type: BLOOD SPECIMEN Ordering Facility: [facility] Address: [address] [place] [address] Result Comment: 3rd generation ultra sensitive TSH. Performed By: #### 2 4323-8, 1987-, 2276-01 #### [facility] CLIA [id number] [address] [place] [address] [place] Testost SerPl-mCncon 025 Testosterone [Mass/Vol] 17 ng/dL Normal 14-76 [facility] Comment on above: Order Comment: Speci men Type: BLOOD SPECIMEN Ordering Facility: [facility] Address: [address] [place] [address] Performed By: #### 1 1572-5 #### [facility] CLIA [id number] [address] [place] [address] [place] Bacteria Ur Culton Bacteria identified Cx Nom (U) CULTURE, URINE: <10,000 CFU/ml Normal Urogenital Blanche Normal [facility] Comment on above: Performed By: #### 1 1572-5 #### [facility] CLIA [id number] [address] [place] [address] [place] CNOVon 04-09-2025 CNOV Office Visit ([facility] ) SUHA CALIX ([id number]) 1980 F CHT Date Time Provider Department 04/09/25 10:55 AM LIBBY WANG [facility] During your visit today, we recorded the following information about you: Temperature Pulse Respiration Blood pressure 97.6 degrees 98/minute 18/minute 98/67 Weight 53.5 kg Libby Wang, DATA SCIENCE AND IOT MANAGER.PREPARED FOODS SERVICE TEAM MEMBER 04/09/2025 12:17 PM Signed [facility] ELOISA Calix is a 45 year old female. Patient presents with: burning with urination: Burning with urination, lower back pain x 4 to 5 days Nasal congestion ongoing since last month Patient is a 45-year-old female who comes in with dysuria and lower back pain that started 4 to 5 days ago. She has also been having nasal congestion, cough, bilateral ear pain, and nausea for the last week. She states she has been peeing fire. History of UTIs. She is sexually active with the same partner. Denies concern for any STIs. Denies chance of , hysterectomy in 2021. Has tried increasing her fluid intake and Azo with little relief. The history is provided by the patient. Review of Systems Constitutional: Positive for chills. Negative for fever. HENT: Positive for congestion, ear pain (Bilateral), rhinorrhea, sinus pressure and sinus pain. Negative for sore throat. Respiratory: Positive for cough. Gastrointestinal: Positive for nausea. Negative for diarrhea and vomiting. Genitourinary: Positive for dysuria, flank pain (Bilateral), frequency and urgency. Negative for hematuria and vaginal discharge. Slight vaginal itching Musculoskeletal: Positive for back pain (Lower). Objective BP 98/67 Pulse 98 Temp 36.4 ?C (97.6 ?F) (Temporal) Resp 18 Wt 53.5 kg (118 lb) LMP 03/08/2022 SpO2 100% BMI 19.64 kg/m? Physical Exam Vitals and nursing note reviewed. Constitutional: General: She is not in acute distress. HENT: Head: Normocephalic and atraumatic. Right Ear: Tympanic membrane and external ear normal. Left Ear: Tympanic membrane and external ear normal. Nose: Right Sinus: Maxillary sinus tenderness present. No frontal sinus tenderness. Left Sinus: Maxillary sinus tenderness present. No frontal sinus tenderness. Mouth/Throat: Lips: [place]. Mouth: Mucous membranes are moist. Pharynx: Oropharynx is clear. Uvula midline. Cardiovascular: Rate and Rhythm: Normal rate and regular rhythm. Heart sounds: Normal heart sounds. No murmur heard. No friction rub. No gallop. Pulmonary: Effort: Pulmonary effort is normal. No respiratory distress. Breath sounds: Normal breath sounds. No stridor. No wheezing, rhonchi or rales. Abdominal: General: There is no distension. Palpations: Abdomen is soft. Tenderness: There is abdominal tenderness in the suprapubic area. There is no right CVA tenderness or left CVA tenderness. Lymphadenopathy: Head: Right side of head: No submental, submandibular, tonsillar, preauricular, posterior auricular or occipital adenopathy. Left side of head: No submental, submandibular, tonsillar, preauricular, posterior auricular or occipital adenopathy. Skin: General: Skin is warm and dry. Capillary Refill: Capillary refill takes less than 2 seconds. Neurological: Mental Status: She is alert and oriented to person, place, and time. Psychiatric: Behavior: Behavior is cooperative. ASSESSMENT/PLAN: 1. Dysuria - ICD9: 788.1, ICD10: R30.0 (primary diagnosis) acute 2. Urinary problem - ICD9: V47.4, ICD10: R39.89 3. Acute non-recurrent maxillary sinusitis - ICD9: 461.0, ICD10: J01.00 - URINALYSIS, DIPSTICK ONLY - BACTERIAL CULTURE, URINE - SULFAMETHOXAZOLE 800 MG-TRIMETHOPRIM 160 MG TABLET - UA positive for moses esterase, proteinuria, and nitrates. Will send urine for culture. Will call if antibiotics can be changed based on culture sensitivities. -Will go ahead and treat with Bactrim for UTI and sinusitis. Take as directed and take with food. - Advise she may also use Tylenol or ibuprofen as needed, and OTC cold and cough medications as needed. - Follow-up if symptoms persist or worsen. Libby Wang, DATA SCIENCE AND IOT MANAGER.PREPARED FOODS SERVICE TEAM MEMBER Differential Diagnoses - UTI, sinusitis, is more likely for the following reason(s): Exam - Pyelonephritis is less likely for the following reason(s): exam Disposition The patient was discharged. OTC Medications were advised: As above Referring Provider: SELF [200] Allergies As of Date: 04/09/2025 Noted Allergy Reaction LATEX 03/16/2021 2 - Rash PENICILLINS 03/16/2021 10 - Anaphylaxis TAPE (ADHESIVE TAPE-SILICONES) 06/15/2022 2 - Rash TORADOL (KETOROLAC) 03/16/2021 7 - Swelling Comments: Tongue swelling Date Reviewed: 04/09/2025 Reviewed by: Libby Wang APRN.PREPARED FOODS SERVICE TEAM MEMBER - Fully Assessed Reason for Visit: burning with urination [Other] Cmt: Burning with urination, lower back pain x 4 to 5 days Nasal (more content not included)... Normal [facility] URINALYSIS, DIPSTICK ONLYOrd ered By: Vonda Lawson on 04-09-2025 Bilirubin Ql (U) 1+ Abnormal Negative [facility] Comment on above: Suggest correlation with clinical findings and serum bilirubin if clinically indicated. Clarity (Unsp spec) Clear Clear [facility] Color (U) Yellow Yellow [facility] Comment on above: Dark Glucose Test strip (U) [Mass/Vol] Negative Negative [facility] Hemoglobin Ql (U) Negative Negative [facility] Interpretation and review of laboratory results Abnormal [facility] Ketones Ql (U) Negative Negative [facility] Leukocyte esterase Test strip Ql (U) Trace Abnormal Negative [facility] Nitrite Ql (U) Positive Abnormal Negative [facility] pH (U) 6 [pH] 5.0 - 8.0 [facility] Protein (U) [Mass/Vol] Trace Abnormal Negative [facility] Specific gravity (U) [Rel density] 1.02 1.005 - 1.030 [facility] Urobilinogen Ql (U) Trace Abnormal Negative [facility] URINALYSIS, DIPSTICK ONLYon 04-09-2025 Bilirubin Ql (U) 1+ Abnormal Negative [facility] Comment on above: Order Comment: Speci men Type: BLOOD SPECIMEN Ordering Facility: [facility] Address: [address] [place] [address] Result Comment: Sugg est correlation with clinical findings and serum bilirubin if clinically indicated. Performed By: #### 1 1572-5 #### [facility] CLIA [id number] [address] [place] [address] [place] Clarity (Unsp spec) Clear Normal Clear [facility] Comment on above: Order Comment: Speci men Type: BLOOD SPECIMEN Ordering Facility: [facility] Address: [address] [place] [address] Performed By: #### 1 1572-5 #### [facility] CLIA [id number] [address] [place] [address] [place] Color (U) Yellow Normal Yellow [facility] Comment on above: Order Comment: Speci men Type: BLOOD SPECIMEN Ordering Facility: [facility] Address: [address] [place] [address] Result Comment: Dark Performed By: #### 1 1572-02 #### [facility] CLIA [id number] [address] [place] [address] [facility] [place] Glucose Test strip (U) [Mass/Vol] Negative Normal Negative [facility] Comment on above: Order Comment: Speci men Type: BLOOD SPECIMEN Ordering Facility: [facility] Address: [address] [place] [address] Performed By: #### 1 1572-02 #### [facility] CLIA [id number] [address] [place] [address] [place] Hemoglobin Ql (U) Negative Normal Negative [facility] Comment on above: Order Comment: Speci men Type: BLOOD SPECIMEN Ordering Facility: [facility] Address: [address] [place] [address] Performed By: #### 1 1572-02 #### [facility] CLIA [id number] [address] [place] [address] [place] Ketones Ql (U) Negative Normal Negative [facility] Comment on above: Order Comment: Speci men Type: BLOOD SPECIMEN Ordering Facility: [facility] Address: [address] [place] [address] Performed By: #### 1 1572-02 #### [facility] CLIA [id number] [address] [place] [address] [place] Leukocyte esterase Test strip Ql (U) Trace Abnormal Negative [facility] Comment on above: Order Comment: Speci men Type: BLOOD SPECIMEN Ordering Facility: [facility] Address: [address] [place] [address] Performed By: #### 1 1572-02 #### [facility] CLIA [id number] [address] [place] [address] [place] Nitrite Ql (U) Positive Abnormal Negative [facility] Comment on above: Order Comment: Speci men Type: BLOOD SPECIMEN Ordering Facility: [facility] Address: [address] [place] [address] Performed By: #### 1 1575 #### [facility] CLIA [id number] [address] [place] [address] [place] pH (U) 6.0 [pH] Normal 5.0-8.0 [facility] Comment on above: Order Comment: Speci men Type: BLOOD SPECIMEN Ordering Facility: [facility] Address: [address] [place] [address] Performed By: #### 1 1572-02 #### [facility] CLIA [id number] [address] [place] [address] [place] Protein (U) [Mass/Vol] Trace Abnormal Negative [facility] Comment on above: Order Comment: Speci men Type: BLOOD SPECIMEN Ordering Facility: [facility] Address: [address] [place] [address] Performed By: #### 1 1572-02 #### [facility] CLIA [id number] [address] [place] [address] [place] Specific gravity (U) [Rel density] 1.020 Normal 1.005-1.03 0 [facility] Comment on above: Order Comment: Speci men Type: BLOOD SPECIMEN Ordering Facility: [facility] Address: [address] [place] [address] Performed By: #### 1 1572-02 #### [facility] CLIA [id number] [address] [place] [address] [place] Urobilinogen Ql (U) Trace Abnormal Negative [facility] Comment on above: Order Comment: Speci men Type: BLOOD SPECIMEN Ordering Facility: [facility] Address: [address] [place] [address] Performed By: #### 1 5 #### [facility] CLIA [id number] [address] [place] [address] [place] CNOVon 02-20-2025 CNOV Office Visit ([facility] ) SUHA CALIX ([id number]) 1980 F T Date Time Provider Department 02/20/25 11:35 AM DIPTI SALMON JR [facility] During your visit today, we recorded the following information about you: Temperature Pulse Respiration Blood pressure 97.9 degrees 85/minute 18/minute 112/63 Weight 53.5 kg Dipti Salmon Jr., DATA SCIENCE AND IOT MANAGER.PREPARED FOODS SERVICE TEAM MEMBER 02/20/2025 12:02 PM Signed Begin taking your new Omnicef as directed for your sinus infection. Take prednisone 20 mg daily for 5 days to help with your headache and sinus inflammation. Use the provided Zofran to help control nausea so you can eat, as needed. Continue using your Flonase and your usual migraine medications (amitriptyline and Topamax) without any changes. joiners supervisor your prescriptions at [facility] in [place]. Remember to avoid penicillins and Toradol due to your allergies. Dipti Salmon Jr., DATA SCIENCE AND IOT MANAGER.PREPARED FOODS SERVICE TEAM MEMBER 02/20/2025 12:05 PM Signed [facility] [place] Subjective Suha Calix is a 44 year old female. Patient presents with: Headache: Headache, dizziness, nasal pressure, ear throbbing x 2 days States she fell last night trying to reach for her migraine medication but doesn't remember if she hit her head Headache Sinus Congestion: - Onset of symptoms on Monday around 0400. - Reports feeling very impacted with poor drainage. - Associated ear pain with sensation of ear domes pounding in rhythm with heartbeat. - Unable to wear bottom dentures due to extra bone pressure. - Using Sudafed and Oxymetazoline with minimal relief. - History of effective treatment with Bactrim and prednisone. - Allergic to penicillins; unclear reaction, but advised by mother to avoid. - Previous use of cefdinir with good results. - Currently using Flonase. Migraines: - History of migraines, currently taking amitriptyline and Topamax. - Recent severe migraine with associated neck tightness and pain. - Visual disturbances described as black flashes. - Taking eletriptan for migraines. - Using ibuprofen 600 mg with slight relief. - History of effective treatment with prednisone 20 mg. Fall: - Recent fall while reaching for medication, resulting in generalized pain. - Denies seeking treatment for fall-related injuries. Nausea: - Reports nausea, attributing it to severe pain. - Previous use of Zofran with good results. Review of Systems Neurological: Positive for headaches. Constitutional: (-) fever Head: (+) headaches, (+) migraines Eyes: (+) visual disturbances Ears/Nose/Mouth/Throat: (+) ear pain, (+) congestion, (+) ear pressure Neck: (+) neck pain Respiratory: (-) cough, (-) shortness of breath Gastrointestinal: (+) nausea, (-) vomiting, (-) diarrhea Musculoskeletal: (+) generalized pain Neurological: (+) dizziness Objective BP 112/63 Pulse 85 Temp 36.6 ?C (97.9 ?F) Resp 18 Wt 53.5 kg (118 lb) LMP 03/08/2022 SpO2 99% BMI 19.64 kg/m? Physical Exam General: No acute distress. HEENT: Bilateral maxillary and frontal sinus tenderness; bilateral turbinate erythema; oropharynx unremarkable; right tympanic membrane pearly flores, no signs of infection; right ear canal unremarkable; left tympanic membrane pearly flores, no signs of infection; left ear canal unremarkable. CV: Regular rhythm, tachycardia, no murmurs. Resp: Lungs clear to auscultation bilaterally, no wheezing, rhonchi, or stridor. Abd: Bowel sounds normal in all four quadrants; no tenderness to palpation. Skin: Warm and dry. {1. Bacterial sinusitis (J32.9) - Bilateral maxillary and frontal sinus tenderness on palpation; bilateral turbinate erythema observed. - History of recurrent sinus infections; previously treated with antibiotics and steroids. - Allergic to penicillins; cefdinir has been effective in the past. - Prescribed cefdinir. - Prescribed prednisone 20 mg daily for 5 days. - Continue using Flonase. 2. Headache, unspecified headache type (R51.9) - Severe headache with associated neck stiffness and visual disturbances; currently on amitriptyline and Topamax. - Prescribed prednisone 20 mg daily for 5 days. - Allergic to Toradol; unable to administer Toradol injection. - Continue eletriptan as needed. 3. Nausea (R11.0) - Likely secondary to severe headache and sinusitis. - Prescribed Zofran. and Recording using Loted[employer] software for draft documentation of the visit was discussed with the patient/authorized inventory representative; all questions welcomed and answered. Patient/authorized inventory representative agreed to proceed Differential Diagnoses - Sinusitis is more likely for the following reason(s): suggested by HANDP Disposition The patient was discharged. Procedures Referring Provider: SELF [200] Allergies As of Date: 02/20/2025 Noted Allergy Reaction LATEX 03/16/2021 2 - Rash PENICILLINS 03/16/2021 1 (more content not included)... Normal [facility] Breast imaging reportOrdered By: Rolan May on 12-26-2024 Study report [facility] Imaging Services [address] [place] [address] SCRN MAMM (CAD)W/RAYMOND BILAT MR#: [id number] Acct: [id number] Name: SUHA CALIX Rep #: [id number] : 1980 F 44 From: Keith May MD PCP: Dr. Jenna Ramos, Status: [facility] Study:SCRN MAMM (CAD)W/RAYMOND BILAT Date of Exa m: 12/25/24 Exam# [id number] Ordering Dr: Ivone Palm MD PROCEDURE: SCRN MAMM (CAD)W/RAYMOND BILAT REASON FOR EXAM: F, Age 44 y/o, annual follow-up. No family history. TECHNIQUE: Bilateral screening digital breast tomosynthesis with 2D and 3D images. Computeraided detection. COMPARISON: Prior exam(s) dating back to outside examination dated March 31, 2021.. FINDINGS: The breasts are extremely dense which lowers the sensitivity of mammography. No suspicious masses, areas of developing architectural distortion, or suspicious calcifications. BI/SCRN MAMM (CAD)W/RAYMOND BILAT IMPRESSION: BI-RADS 1: NEGATIVE. RECOMMEND ANNUAL MAMMOGRAPHIC SCREENING. Follow-up code: Routine Follow-up The patient will be notified of the results by letter. Reading Location: [id number] CC: Dr. Ivone Palm MD; Dr. Jenna Ramos DO ~ Squeegee Operator: Signed [facility] SCRN MAMM (CAD)W/RAYMOND BILATo n 12-25-2024 SCRN MAMM (CAD)W/RAYMOND BILAT [facility] Imaging Services [address] [place] [address] SCRN MAMM (CAD)W/RAYMOND BILAT MR#: [id number] Acct: [id number] Name: SUHA CALIX Rep #: [id number] : 1980 F 44 From: Rolan mendez MD PCP: Dr. Jenna Ramos DO Status: REG CLI Study: SCRN MAMM (CAD)W/RAYMOND BILAT Date of Exam: 03/16 Exam# [id number] Ordering Dr: Ivone Palm MD PROCEDURE: SCRN MAMM (CAD)W/RAYMOND BILAT REASON FOR EXAM: F, Age 44 y/o, annual follow-up. No family history. TECHNIQUE: Bilateral screening digital breast tomosynthesis with 2D and 3D images. Computer aided detection. COMPARISON: Prior exam(s) dating back to outside examination dated March 31, 2021.. FINDINGS: The breasts are extremely dense which lowers the sensitivity of mammography. No suspicious masses, areas of developing architectural distortion, or suspicious calcifications. BI/SCRN MAMM (CAD)W/RAYMOND BILAT IMPRESSION: BI-RADS 1: NEGATIVE. RECOMMEND ANNUAL MAMMOGRAPHIC SCREENING. Follow-up code: Routine Follow-up The patient will be notified of the results by letter. Reading Location: [id number] CC: Dr. Ivone Palm MD; Dr. Jenna Ramos DO Squeegee Operator: Signed Normal [facility] Oncology Visit Reporton Oncology Visit Report [facility] [place] [address] OFFICE VISIT Date of Service: 12/23/24 1315 MR#: [id number] Acct: [id number] Name: SUHA CALIX Rep #: [id number] : 1980 From: Carline Simmons NP MANUFACTURING SHIFT SUPERVISOR -C Age/Sex: 44/F Location: [facility] Status: Signed HPI Subjective Date of Service 12/23/24 Chief Complaint Referred for thrombophilia evaluation. History of Present Illness Ms. Calix is a 44-year-old woman with a substantial history of DVTs. She initially experienced a LLE DVT in which she describes as huge, from my ankle to inferior vena cava in 1997 while 20 wks with her daughter. She was hospitalized for 3 weeks on strict bed rest/heparin. At that time, she was diagnosed protein S and C deficiency. Per patient self report, a protein S and C deficiency was noted again in 2002. She remained on warfarin until 2015 when she switched to Xarelto. While on warfarin, estimates she developed approx 17 DVTs bilaterally although more often was LLE rather than RLE. A permanent IVC filter was placed in 2010. Did not tolerate Xarelto citing generalized joint pain and after 2 weeks changed to Eliquis. She had hysterectomy in 2021, postoperatively was uncomplicated. 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 Family history includes: Father- several PEs starting at age 16, managed on warfarin but did develop VTEs while on anticoagulation Paternal grandfather from PE. Interval History The patient is presenting to clinic for an 8 week follow up. Reports good adherence and tolerance to Eliquis 5 mg BID at this time. Denies any episodes of overt bleeding. Up to date on all cancer screenings, except mammogram. [facility] Medical History (Updated 12/24/24 @ 16:50 by Carline Simmons NP, MANUFACTURING SHIFT SUPERVISOR-C) Screening mammogram for breast cancer IBS (irritable bowel syndrome) Malignant melanoma H/O protein S deficiency H/O protein C deficiency Hypothyroidism GERD (gastroesophageal reflux disease) Anxiety Surgical History Iliac vein thrombosis, left H/O local excision of skin lesion H/O adenoidectomy H/O: H/O superior vena cava filter placement H/O: hysterectomy Family History Father Bleeding disorder protein C, S deficiency and Factor V leiden Heart disease Grandfather Bleeding disorder Pulmonary embolism Mother IBS (irritable bowel syndrome) Brother IBS (irritable bowel syndrome) Grandfather Heart disease quadruple bypass Social History household members: spouse and other details: 2 dogs housing: house current occupational status: employed 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 Smoking Status: Former smoker quit date: 10/23/15 pack-years: 23 alcohol intake: former year quit: 2016 substance use type: does not use what type of physical activity do you participate in: none seatbelt use: always do you feel safe at home: Yes ROS ROS Narrative Negative except as documented in the interval HPI Intake Vital Signs 11/05/24 13:13 11/26/24 08:00 12/23/24 13:17 12/23/24 13:19 Height 5 ft 4 in 5 ft 4 in 5 ft 4 in 5 ft 4 in Weight: 121 lb 2 oz BMI 20.7 BP 122/86 H Blood Pressure Location Lt brachial Position Sitting Respiration 18 Pulse 79 Pulse Source Monitor Temp 98.1 F Temperature Source Temporal Artery Pulse Oximetry (%) 100 Oxygen Delivery Method room air Intake Is patient in pain?: Yes (chronic pain) Pain scale (1-10): 6 Allergies Penicillins Allergy (Severe, Verified 12/23/24 13:15) Hives ketorolac (From Toradol) Allergy (Intermediate, Verified 12/23/24 13:15) Swelling latex Allergy (Verified 12/23/24 13:15) Hives Medications ???Medication ???Instructions ???Recorded ???Confirmed ???Type apixaban 5 mg tablet (Eliquis) 5 mg PO BID 06/02/22 12/23/24 Hist ory pantoprazole 40 mg tablet,delayed 40 mg PO DAILY 06/02/22 12/23/24 History release polyethylene glycol 3350 17 4 g PO DAILY 06/02/22 12/23/24 His tory gram/dose oral powder (Miralax) topiramate 100 mg tablet 100 mg PO BID 06/02/22 12/23/24 Hi story amitriptyline 10 mg tablet 20 mg PO QHS 07/05/24 12/23/24 His tory aspirin 81 mg tablet,delayed 81 mg PO QDAY 07/05/24 12/23/24 Hi story release (Adult Low Dose Aspirin) montelukast 10 mg tablet 10 mg PO QHS #30 tabs 10/08/2401/14 Rx (Singulair) dicyclomine 20 mg tablet 20 mg PO TID PRN 11/05/24 12/23/24 History eletriptan 20 mg tablet See Rx Instructions PO .COMPLEX IA N 11/05/24 12/23/24 History gabapentin 100 mg capsule 100 mg PO TID 11/05/24 12/23/24 Hi story ibuprofen 600 mg table (more content not included)... Normal [facility] CNOVon 12-18-2024 OV Office Visit (UCMMAS ) SUHA CALIX ([id number]) 1980 F T Date Time Provider Department 12/18/24 2:10 PM DIPTI SALMON JR [facility] During your visit today, we recorded the following information about you: Temperature Pulse Respiration Blood pressure 98 degrees 103/minute 17/minute 105/71 Weight 53.8 kg Kings Magaña LPN 12/18/2024 2:40 PM Signed Patient declined depression screening at this time. GERALD Henderson Paul J Jr., DATA SCIENCE AND IOT MANAGER.PREPARED FOODS SERVICE TEAM MEMBER 12/18/2024 2:40 PM Signed Suha Garcia Calix is a 44 year old female who presents with Rhinitis (Started 3 days ago ), Nasal Congestion (Started 3 days ago ), Sinus Problem (Pain /Started 3 days ago /), and Headache (Started 3 days ago ) 44-year-old female presents today complaining of rhinitis, nasal congestion and pain, headache, by 3 days. Patient states when she gets a sinus infection she will have a headache and feels the 2 are related. She states she does have some ear pain but is unsure of what is causing that. The history is provided by the patient. PAST MEDICAL HISTORY Diagnosis Date Anxiety and depression GERD (gastroesophageal reflux disease) H/O protein C deficiency H/O protein S deficiency History of DVT (deep vein thrombosis) 10/04/2021 Hypothyroid Malignant melanoma (HCC) Migraines Other specified hypothyroidism 10/04/2021 TMJ (temporomandibular joint disorder) ACTIVE PROBLEM LIST H/O Protein C Deficiency H/O Protein S Deficiency Migraine Malignant Melanoma (Hcc) History of Dvt (Deep Vein Thrombosis) Hypothyroidism Neck Pain Right Leg Pain Left Leg Pain Myofascial Pain Syndrome Uti Symptoms Abdominal Pain Chronic Pain Syndrome Sacroiliitis (Hcc) Acute Right-Sided Low Back Pain With Right-Sided Sciatica Encounter for Screening Mammogram for Breast Cancer Adjustment Disorder With Mixed Anxiety and Depressed Mood Headaches Hypothyroidism, Unspecified 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 ferrous sulfate 325 mg (65 mg iron) tablet 1 tablet Orally Daily for 30 days rimegepant (NURTEC ODT) 75 mg disintegrating tablet Take 1 tablet by mouth every other day. For migraine prevention 16 tablet 5 montelukast (SINGULAIR) 10 mg tablet Take 10 mg by mouth daily at bedtime. levothyroxine (SYNTHROID) 112 mcg tablet Take 112 mcg by mouth every morning. Take On an Empty Stomach topiramate (TOPAMAX) 100 mg tablet TAKE 1 TABLET TWICE A DAY [address] (PROTONIX) 40 mg tablet TAKE 1 TABLET DAILY 90 tablet 3 tiZANidine (ZANAFLEX) 4 mg tablet Take 0.5-1 tablets by mouth three times a day as needed (muscle spasms). 90 tablet 3 eletriptan (RELPAX) 40 mg tablet At migraine onset. may repeat in 2 hours if necessary 12 tablet 5 gabapentin (NEURONTIN) 100 mg capsule Take 2 capsules by mouth daily at bedtime for 30 days. 60 capsule 0 dicyclomine (BENTYL) 20 mg tablet TAKE ONE TABLET BY MOUTH THREE TIMES A DAY NEEDED FOR ABDOMINAL PAIN 270 tablet 1 polyethylene glycol 3350 (MIRALAX, GLYCOLAX) 17 gram/dose powder Take 17 g by mouth once daily. 510 g 4 ondansetron orally disintegrating (ZOFRAN ODT) 4 mg disintegrating tablet 1 tablet on the tongue and allow to dissolve Orally Once a day amitriptyline (ELAVIL) 25 mg tablet Take 1 tablet by mouth daily at bedtime. (Patient taking differently: Take 20 mg by mouth daily at bedtime.) 30 tablet 0 ergocalciferol 50,000 unit capsule (VITAMIN D2, DRISDOL) Take 1 capsule by mouth one time a week. Use as directed. 12 capsule 1 No current facility-administered medications for this visit. Social History Tobacco Use Smoking status: Former Current packs/day: 0.00 Average packs/day: 1 pack/day for 22.0 years (22.0 ttl pk-yrs) Types: Cigarettes Start date: 03/23/1994 Quit date: 03/23/2016 Years since quittin.7 Passive exposure: Past Smokeless tobacco: Never Vaping Use Vaping status: Never Used Substance Use Topics Alcohol use: Not Currently Drug use: Yes Types: Marijuana Comment: Only medical marijuania Alcohol Use: Not Currently Tobacco Use: Types: Cigarettes FAMILY HISTORY Problem Relation Age of Onset Clotting Disorder Father Protein C and S deficiency No Known Problems Mother Clotting Disorder Paternal Grandfather Anesthesia Problems No Family History Review of Systems Constitutional: Negative for fever. HENT: Positive for congestion, ear pain and sinus pain. Respiratory: Negative for cough. Cardiovascular: Negative for chest pain. Gastrointestinal: Negative for abdominal pain and vomiting. Skin: Negative for rash. Neurological: Positive for headaches. BP 105/71 Pulse 103 Temp (Src) 98 (Temporal) Resp 17 Wt 118 lb 9.6 oz (53.8kg) SpO2 100% LMP 03/08 (more content not included)... Normal [facility] L7000.0750on 12-12-2024 P ELASTASE,FECA > 800 Normal >200 [facility] Comment on above: Result Comment: Resu lt Units: ug Elast./g Severe Pancreatic Insufficiency: <100 Moderate Pancreatic Insufficiency: 100 - 200 Normal: >200 Performed at: - [facility] [id number] [place], [place] [id number] Pharmacy Teacher: Jeffy Ly MD, Phone: [phone] Performed By: #### L 7000.0750 ####[facility] [address], [address] Elastase.pancreatic (Stl) [M ass/Mass]Ordered By: Ivone Palm on 12-09-2024 Stool Pancreatic Elastase > 800 >200 [facility] Comment on above: Result Units: ug Kesha st./g Severe Pancreatic Insufficiency: <100 Moderate Pancreatic Insufficiency: 100 - 200 Normal: >200Performed at: [facility] [id number] Director: Jeffy Ly MD, Phone: [phone] DERECK Comprehensive Panelon ANTI-DNA (DS)AB <1 Normal 0-9 [facility] Comment on above: Result Comment: Nega tive <5 Equivocal 5 - 9 Positive >9 Performed By: #### L 3100.5440 ####[facility] [address], [address] ANTISCLERODERM <0.2 Normal 0.0-0.9 [facility] Comment on above: Performed By: #### L 3100.5440 ####[facility] [address] [place], [address] DERECK w/ Reflex Mult Confirmon 11-29-2024 DERECK,DIRECT Negative Normal Negative [facility] Comment on above: Result Comment: Perf ormed at: - [facility] [address] [id number] Pharmacy Teacher: Jeffry Schreiber PhD, Phone: [phone] Performed By: #### L 3100.5440, T4295.9790 ####[facility] [address] [place], [address] CNOVon 11-27-2024 CNOV Office Visit (NEADFV ) SUHA CALIX ([id number]) 1980 F T Date Time Provider Department 11/27/24 3:30 PM MAKENNA GONGORA [facility] During your visit today, we recorded the following information about you: Pulse Blood pressure Weight Height 86/minute 101/70 56.6 kg 1.651 m Makenna Gongora MD 11/27/2024 5:12 PM Signed PROGRESS NOTE-HEADACHE MEDICINE SERVICE DATE: November 27, 2024 Location: [facility] Participants: Patient and Provider Subjective HPI: Suha Calix is here for follow up. Last seen on 08/20/2024. Daily headaches for the last 15 years. Started Aimovig 70 mg for the last 4 months(), feels it gave her more headaches. I asked her to follow-up with pain clinic for her neck pain, she actually stopped going altogether, she says they were not doing any procedures and just refilling medications. More recently her PCP made changes on neck pain medication and told her that from today on I had to take over the neck pain regimen, although he made recent increases to both medications for neck pain. Headache Description: Severity: 20 days a month are severe, rest are mild to moderate Duration of attacks: almost constant Frequency: daily for the last 15 years Aura: no Location: bilateral. Occipital and sometimes maxillary Quality: pressure and throbbing Triggers: heat, certain neck positional Date of onset: teenager Most common time of the day: anytime Associated symptoms: Nausea: yes Vomiting: yes Photophobia: yes Phonophobia: yes Vision Changes: no Vertigo: off balance sometimes Neck pain: yes Tinnitus: no Sinus Symptoms: no Autonomic Symptoms: no Worsens with simple activity: yes Avoidance of activity: yes Head pain change/trigger by valsalva maneuvers: no Positional headache: no Family hx of headaches: no Prior Treatments: Fioricet Imagin.Images and report of MRI C spine : no significant canal stenosis or disc bulging. 2.CT brain and C spine 08/25/2024:No acute intracranial abnormality. Outpatient Medications as of 11/27/2024 Medication Sig montelukast (SINGULAIR) 10 mg tablet Take 10 mg by mouth daily at bedtime. AIMOVIG AUTOINJECTOR 70 mg/mL auto-injector Inject 70 mg subcutaneously once every month. levothyroxine (SYNTHROID) 112 mcg tablet Take 112 mcg by mouth every morning. Take On an Empty Stomach topiramate (TOPAMAX) 100 mg tablet TAKE 1 TABLET TWICE A DAY pantoprazole DR (PROTONIX) 40 mg tablet TAKE 1 TABLET DAILY tiZANidine (ZANAFLEX) 4 mg tablet Take 0.5-1 tablets by mouth three times a day as needed (muscle spasms). eletriptan (RELPAX) 40 mg tablet At migraine onset. may repeat in 2 hours if necessary apixaban (ELIQUIS) 5 mg tab(s) Take 1 tablet by mouth two times a day. dicyclomine (BENTYL) 20 mg tablet TAKE ONE TABLET BY MOUTH THREE TIMES A DAY NEEDED FOR ABDOMINAL PAIN polyethylene glycol 3350 (MIRALAX, GLYCOLAX) 17 gram/dose powder Take 17 g by mouth once daily. amitriptyline (ELAVIL) 25 mg tablet Take 1 tablet by mouth daily at bedtime. gabapentin (NEURONTIN) 100 mg capsule Take 2 capsules by mouth daily at bedtime for 30 days. ergocalciferol 50,000 unit capsule (VITAMIN D2, DRISDOL) Take 1 capsule by mouth one time a week. Use as directed. No current facility-administered medications on file as of 11/27/2024. Current medications review: 1.Eletriptan 40 mg helps more than the 20 mg. Most times she needs 1 dose only. 2.Gabapentin 300 mg TID- helps the neck pain, recently increased by PCP. Start date since July 2024 3.Amitriptyline 20 mg- increased more recently from 10 mg. She feels some mild relief of her neck pain. Start date May 2024 4.Topiramate 100 mg BID for 20 years- when she missed doses in the past (last time March of 2023) she missed 1 week of Topiramate the severe increased. 5.OTC analgesics unsure of amount PAST MEDICAL HISTORY Diagnosis Date Anxiety and depression GERD (gastroesophageal reflux disease) H/O protein C deficiency H/O protein S deficiency History of DVT (deep vein thrombosis) 10/04/2021 Hypothyroid Malignant melanoma (HCC) Migraines Other specified hypothyroidism 10/04/2021 TMJ (temporomandibular joint disorder) ALLERGIES Allergen Reactions Latex Rash Penicillins Anaphylaxis Tape [Adhesive Tape* Rash Toradol [Ketorolac] Swelling Tongue swelling Vitals: BP 101/70 Pulse 86 Ht 165.1 cm (5' 5) Wt 56.6 kg (124 lb 12.5 oz) LMP 03/08/2022 BMI 20.76 kg/m? ASSESSMENT: -Chronic daily headaches for the last 15 years. -Chronic migraine without aura -Chronic neck pain. Not going to pain clinic anymore. PCP wants me to prescribe neck pain medication -At risk of medication overuse headache RECOMMENDATIONS: 1. Abortive therapy: -continue Eletriptan 40 mg -avoid OTC analgesics 2. Preventive thera (more content not included)... Normal [facility] DERECK Comprehensive Panelon DERECK TABLE TN Normal [facility] Comment on above: Performed By: #### L 3100.5440, L3100.5450 ####[facility] [id number] [place], [address] DERECK serumOrdered By: Ivone Palm on 11-26-2024 Anti-Nuclear Antibody Screen Negative Negative [facility] Comment on above: Performed at: [facility] [address] [id number] Director: Jeffry Schreiber PhD, Phone: [phone] Centromere B antibody assayO rdered By: Ivone Palm on 11-26-2024 Centromere B Antibody [facility] Comment on above: Test not performed Chromatin antibody assayOrde red By: Ivone Palm on 11-26-[address] [facility] Comment on above: Test not performed DNA double strand Ab Qn (S)O rdered By: Ivone Palm on 11-26-2024 Anti-Double Strand DNA Antibody [facility] Comment on above: Test not performed Ronel-1 antibody assayOrdered B y: Ivone Palm on 11-26-2024 RONEL-[address] [facility] Comment on above: Test not performed SILVER PLATER abOrdered By: Ivone milton on 11-26-[address] [facility] Comment on above: Test not performed SCL-70 extractable nuclear A b Qn (S)Ordered By: Ivone Palm on 11-26-2024 Scl-70 (Scleroderma) Antibody [facility] Comment on above: Test not performed SS-A IgG antibody assayOrder ed By: Ivone Palm on 11-26-2024 SS-A/Ro IgG Antibody [facility] Comment on above: Test not performed SS-B IgG antibody assayOrder ed By: Ivone Palm on 11-26-2024 SS-B/La IgG Antibody [facility] Comment on above: Test not performed Denny antibody assayOrdered By: Ivone Palm on 11-26-[address] [facility] Comment on above: Test not performed Internal Medicine Office Vis iton 11-25-2024 Internal Medicine Office Visit [facility] [address] [place] [address] [place] [address] OFFICE VISIT Date of Service: 11/26/24 MR#: [id number] Acct: [id number] Name: SUHA CALIX Rep #: [id number] : 1980 Provider: Dr. 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 Required: No Accompanied by: Self Is patient in pain?: No Allergies Penicillins Allergy (Severe, Verified 11/26/24 07:57) Hives ketorolac (From Toradol) Allergy (Intermediate, Verified 11/26/24 07:57) Swelling latex Allergy (Verified 11/26/24 07:57) Hives Medications ???Medication ???Instructions ???Recorded ???Confirmed ???Type apixaban 5 mg tablet (Eliquis) 5 mg PO BID 06/02/22 11/26/24 Hist ory pantoprazole 40 mg tablet,delayed 40 mg PO DAILY 06/02/22 11/26/24 History release polyethylene glycol 3350 17 4 g PO DAILY 06/02/22 11/26/24 His tory gram/dose oral powder (Miralax) topiramate 100 mg tablet 100 mg PO BID 06/02/22 11/26/24 Hi story amitriptyline 10 mg tablet 20 mg PO QHS 07/05/24 11/26/24 His tory aspirin 81 mg tablet,delayed 81 mg PO QDAY 07/05/24 11/26/24 Hi story release (Adult Low Dose Aspirin) montelukast 10 mg tablet 10 mg PO QHS #30 tabs 10/08/2402/14 Rx (Singulair) dicyclomine 20 mg tablet 20 mg PO TID PRN 11/05/24 11/26/24 History eletriptan 20 mg tablet See Rx Instructions PO .COMPLEX IA N 11/05/24 11/26/24 History gabapentin 100 mg capsule 100 mg PO TID 11/05/24 11/26/24 Hi story ibuprofen 600 mg tablet 600 mg PO TID PRN 11/05/24 5 History levothyroxine 112 mcg capsule 100 mcg PO DAILY 11/05/24 11/26/24 History ondansetron HCl 4 mg tablet 4 mg PO Q6H PRN 11/05/24 11/26/24 History tizanidine 4 mg tablet 4 mg PO QHS PRN 11/05/24 11/26/24 History Have you fallen in the past year?: No Nurse's Note: noted mucous in stool and issues with hypo and hyper thyroid PFSH Medical History IBS (irritable bowel syndrome) Malignant melanoma H/O protein S deficiency H/O protein C deficiency Hypothyroidism GERD (gastroesophageal reflux disease) Anxiety Surgical History Iliac vein thrombosis, left H/O local excision of skin lesion H/O adenoidectomy H/O: H/O superior vena cava filter placement H/O: hysterectomy Family History Father Bleeding disorder protein C, S deficiency and Factor V leiden Heart disease Grandfather Bleeding disorder Pulmonary embolism Mother IBS (irritable bowel syndrome) Brother IBS (irritable bowel syndrome) Grandfather Heart disease quadruple bypass Social History household members: spouse and other details: 2 dogs housing: house current occupational status: employed 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 She is up to date on her routine blood work and still needs to do her screening. She isn't due for any immunizations. She doesn't smoke and does need refills. She reports she is eating healthy and staying active. She takes her synthroid first thing in the morning before anything else, however, states she does take it with her protonix. She reports her last TSH was high in August and her dose was changed. She reports her levels are going to be rechecked in December for continued monitoring. The patient has a long history of migraines. At her last office visit, she reported she was getting them daily. She is following with neurology who is managing them and reports that she sees her on Monday. She reports they have been doing better and aren't occurring every day. She states she didn't tolerate the imovig, however. She reports she got some dentures and that seems to have helped with the pain. At her last office visit, she also complained of recurrent sinus infections and was sta (more content not included)... Normal [facility] CNOVon 11-21-2024 CNOV Office Visit (PAMMJK ) SUHA CALIX ([id number]) 1980 F T Date Time Provider Department 11/21/24 8:30 AM MADISON DENNY During your visit today, we recorded the following information about you: Pulse Respiration Blood pressure 86/minute 16/minute 101/70 Madison Denny PA-C 11/21/2024 8:53 AM Signed This note was created using [employer]. Subjective Suha Calix is a 44 year old female. The patient primarily being seen for neck and back pain Patient was last seen on: 08/28/24 At that time, the treatment plan was: see notes Current Meds: tizanidine - am, amitriptyline - pm, compound cream - prn Efficacy: some Side effects: drowsy TENS unit: yes How often used: daily Benefit: helps Physical Therapy: 2021 for back Last UDS: not on narcotics Last injection: 06/11/24 - TPI OARRS reviewed At the present time, the patient reports benefit with her present analgesic therapy. She denies any adverse effects. Since her previous visit, she denies any hospitalizations or ER visits. Otherwise, she has nothing further to discuss at this time. She states she is going to have her PCP take over the meds and is going to see neurology for her migraines. 11/21/2024 Pain Disability Index Family/Home Responsibilities: This category includes chores or duties performed around the house (e.g. yard work), errands or favors for other family members (e.g. driving the children to school) 6 Recreation: This category includes hobbies, sports, and other similar leisure time activities 6 Social Activity: This category refers to activities which involve participation with friends and acquaintances, other than family members. It includes parties, theater, concerts, dinning out, and other social functions 5 Occupation: This category refers to activities that are a part of or directly related to ones' job. This includes non-paying jobs as well, such as that of a housewife or volunteer worker 7 Sexual Behavior: This category refers to the frequency and quality of one's sex life 4 Self Care: This category includes activities which involve personal maintenance and independent daily living (e.g. taking a shower, driving, getting dress, etc) 3 Life Support Activity: This category refers to basic-life supporting behaviors such as eating, sleeping, and breathing 4 PDI Score 35 09/23/2024 11/21/2024 INTAKE PAIN ASSESSMENT Are you having pain associated with your visit today? Yes, Provider notified Yes, Provider notified Pain Scales Verbal (Numeric Rating or Visual Analog Scale) Verbal (Numeric Rating or Visual Analog Scale) Pain Level 7 6 Pain Location Ear-Bilateral Neck Description Aching;Sore;Throbbing Aching;Sharp Duration Amount of Time 1 16 Duration Units Weeks Years Frequency Continuous Continuous Intervention/Comfort measure Heat;Relaxation;Pillow support;Medication HPI PAST MEDICAL HISTORY Diagnosis Date Anxiety and depression GERD (gastroesophageal reflux disease) H/O protein C deficiency H/O protein S deficiency History of DVT (deep vein thrombosis) 10/04/2021 Hypothyroid Malignant melanoma (HCC) Migraines Other specified hypothyroidism 10/04/2021 TMJ (temporomandibular joint disorder) PAST SURGICAL HISTORY Procedure Laterality Date ARTERY TO VEIN SHUNT 06/28/[address] [facility] SECTION SINGLE 1997 COLONOSCOPY SCREENING 01/16/2023 EGD W/O BRSH SPEC VARICIES INJ 01/16/2023 ESOPHAGOGASTRODUODENOSCOPY TRANSORAL DIAGNOSTIC 03/23/2013 EGD HAND SURGERY HX Left trigger finger release 3 rd finger HYSTEROSCOPY, DIAGNOSTIC (SEPARATE 10/18/2021 IR IVC FILTER PLACEMENT 2010 MALIGNANT MELANOMA - WIDE EXCISION IN ANY AREA AND MUST INCLUDE > 1CM MARGINS AND LAYERED CLOSURE TONSILLECTOMY AND ADENOIDECTOMY VAGINAL HYSTERECTOMY 03/08/2022 total Social History Tobacco Use Smoking status: Former Current packs/day: 0.00 Average packs/day: 1 pack/day for 22.0 years (22.0 ttl pk-yrs) Types: Cigarettes Start date: 03/23/1994 Quit date: 03/23/2016 Years since quittin.6 Passive exposure: Past Smokeless tobacco: Never Vaping Use Vaping status: Never Used Substance Use Topics Alcohol use: Not Currently Drug use: Yes Types: Marijuana Comment: [facility] of Systems Constitutional: Negative for fever and unexpected weight change. Musculoskeletal: Positive for back pain. + neck pain, back pain, joint pain/swelling, muscle cramps/weakness, stiffness, arthritis, and leg pain with exertion. Objective BP 101/70 (BP Site: Left Arm, BP Position: Sitting) Pulse 86 Resp 16 LMP 03/08/2022 SpO2 100% Physical Exam Vitals and nursing note reviewed. Constitutional: Appearance: Normal appearance. She is well-developed, well-groomed and normal weight. HENT: Head: Normocephalic and atraumat (more content not included)... Normal [facility] L3410.9999on 11-15-2024 [facility] Misc. COMMENT Normal . [facility] Comment on above: Order Comment: 2 ML BLUE FRZ PLASMA, SERUM RT, LG LAV PLASMA RF, LAV WB [id number] RISK PF 1 Result Comment: Test Ordered: [id number] Thrombotic Risk Profile I Homocyst(e)ine 14.8 [H ] umol/L CB Reference Range: 0.0-14.5 Plasminogen 112 % BN Reference Range: 70-150 Antithrombin Activity 168 [H ] % BN Reference Range: 75-135 An elevated antithrombin activity is of no known clinical significance. Direct Xa inhibitor anticoagulants such as rivaroxaban, apixaban and edoxaban will lead to spuriously elevated antithrombin activity levels possibly masking a deficiency. Protein C-Functional 88 % BN Reference Range: 73-180 Protein S, Free 84 % BN Reference Range: 61-136 Act.Prt.C Resist. 2.8 ratio BN Reference Range: 2.2-3.5 The APCR result may be falsely increased (masking an abnormal, low APCR result) in patients on direct Xa inhibitor (e.g., rivaroxaban, apixaban, edoxaban) or a direct thrombin inhibitor (e.g., dabigatran) anticoagulant therapy due to assay interference by these drugs. PTT-LA 35.2 sec BN Reference Range: 0.0-43.5 dRVVT 33.5 sec BN Reference Range: 0.0-47.0 Lupus Reflex Interpretation Comment: BN Reference Range: . No lupus anticoagulant was detected. Dilute Prothrombin Time(dPT) 33.5 sec BN Reference Range: 0.0-47.6 dPT Confirm Ratio 1.11 Ratio BN Reference Range: 0.00-1.34 Anticardiolipin Ab,IgG,Qn <9 GPL U/mL CB Reference Range: 0-14 Negative: <15 Indeterminate: 15 - 20 Low-Med Positive: >20 - 80 High Positive: >80 Anticardiolipin Ab,IgM,Qn <9 MPL U/mL CB Reference Range: 0-12 Negative: <13 Indeterminate: 13 - 20 Low-Med Positive: >20 - 80 High Positive: >80 Beta-2 Glycoprotein I Ab, IgG <9 CB Units of Measure: GPI IgG units Reference Range: 0-20 The reference interval reflects a 3SD or 99th percentile interval, which is thought to represent a potentially clinically significant result in accordance with the International Consensus Statement on the classification criteria for definitive antiphospholipid syndrome (APS). J Thromb Haem 2006;4:295-306. Beta-2 Glycoprotein I Ab, IgM <9 CB Units of Measure: GPI IgM units Reference Range: 0-32 The reference interval reflects a 3SD or 99th percentile interval, which is thought to represent a potentially clinically significant result in accordance with the International Consensus Statement on the classification criteria for definitive antiphospholipid syndrome (APS). J Thromb Haem 2006;4:295-306. Factor II, DNA Analysis Comment TG Reference Range: . Result: c.*97G>A - Not Detected This result is not associated with an increased risk for venous thromboembolism. See Additional Clinical Information and Comments. Additional Clinical Information: Venous thromboembolism is a multifactorial disease influenced by genetic, environmental, and circumstantial risk factors. The c.*97G>A variant in the F2 gene is a genetic risk factor for venous thromboembolism. Heterozygous carriers have a 2- to 4-fold increased risk for venous thromboembolism. Homozygotes for the c.*97G>A variant are rare. The annual risk of VTE in homozygotes has been reported to be 1.1%/year. Individuals who carry both a c.*97G>A variant in the F2 gene and a c.1601G>A (p. Yhu600Xev) variant in the F5 gene (commonly referred to as Factor V Leiden) have an approximately 20- fold increased risk for venous thromboembolism. Risks are likely to be even higher in more complex genotype combinations involving the F2 c.*97G>A variant and Factor V Leiden (PMID: [id number]). Additional risk factors include but are not limited to: deficiency of protein C, protein S, or antithrombin III, age, male sex, personal or family history of deep vein thromboembolism, smoking, surgery, prolonged immobilization, malignant neoplasm, tamoxifen treatment, raloxifene treatment, oral contraceptive use, hormone replacement therapy, and . Management of thrombotic risk and thrombotic events should follow established guidelines and fit the clinical circumstance. This result cannot predict the occurrence or recurrence of a thrombotic event. Comments: Genetic counseling is recommended to discuss the potential clinical implications of positive results, as well as recommendations for testing family members. Genetic Coordinators are available for health care providers to discuss results at [phone] Test Details: Variant analyzed: c.*97G>A, previously referred to as [id number] Methods/Limitations: DNA analysis of the F2 gene ([id number]) was performed by PCR amplification followed by restriction enzyme analysis. The diagnostic sensitivity is >99%. Results must be combined with clinical information for the most accurate interpretation. Molecular-based testing is highly accurate, but as in any laboratory test, diagnostic errors may occur. False positive or false negative results may occur for reasons that include genetic variants, blood transfusions, bone marrow transplantation, somatic or tissue-specif (more content not included)... Performed By: #### L 503.6550, L506.0250, L3100.3425, L300.4310, L3410.9999, L501.2300, L501.6710, L501.5200, L300.3900, L3130.0010, L100.9950, L503.6030, L500.4050, L101.9900, L100.0100, L504.2610, L3100.7050, L503.0105, L300.8000, L3100.7075 ####[facility] [address] [place], [address] CARLENE + Protein Elect, Serumon 11-13-2024 Albumin [Mass/Vol] 3.8 g/dL Normal 2.9-4.4 [facility] Comment on above: Order Comment: NUNKN OWN Performed By: #### L 503.6550, L506.0250, L3100.3425, L300.4310, L3410.9999, L501.2300, L501.6710, L501.5200, L300.3900, L3130.0010, L100.9950, L503.6030, L500.4050, L101.9900, L100.0100, L504.2610, L3100.7050, L503.0105, L300.8000, L3100.7075 ####[facility] [address] [place], [place], [phone] Albumin/Globulin [Mass ratio] 1.6 {ratio} Normal 0.7-1.7 [facility] Comment on above: Order Comment: NUNKN OWN Performed By: #### L 503.6550, L506.0250, L3100.3425, L300.4310, L3410.9999, L501.2300, L501.6710, L501.5200, L300.3900, L3130.0010, L100.9950, L503.6030, L500.4050, L101.9900, L100.0100, L504.2610, L3100.7050, L503.0105, L300.8000, L3100.7075 ####[facility] [address] [place], [address] IHCDV-2-NTVT 0.3 g/dL Normal 0.0-0.4 [facility] Comment on above: Order Comment: NUNKN OWN Performed By: #### L 503.6550, L506.0250, L3100.3425, L300.4310, L3410.9999, L501.2300, L501.6710, L501.5200, L300.3900, L3130.0010, L100.9950, L503.6030, L500.4050, L101.9900, L100.0100, L504.2610, L3100.7050, L503.0105, L300.8000, L3100.7075 ####[facility] [address] [place], [place], [phone] NSIDT-7-XYUO 0.7 g/dL Normal 0.4-1.0 [facility] Comment on above: Order Comment: NUNKN OWN Performed By: #### L 503.6550, L506.0250, L3100.3425, L300.4310, L3410.9999, L501.2300, L501.6710, L501.5200, L300.3900, L3130.0010, L100.9950, L503.6030, L500.4050, L101.9900, L100.0100, L504.2610, L3100.7050, L503.0105, L300.8000, L3100.7075 ####[facility] [address] [place], [place], [phone] BETA GLOBULIN 0.9 g/dL Normal 0.7-1.3 [facility] Comment on above: Order Comment: NUNKN OWN Performed By: #### L 503.6550, L506.0250, L3100.3425, L300.4310, L3410.9999, L501.2300, L501.6710, L501.5200, L300.3900, L3130.0010, L100.9950, L503.6030, L500.4050, L101.9900, L100.0100, L504.2610, L3100.7050, L503.0105, L300.8000, L3100.7075 ####[facility] [address] [place], [place], [phone] GAMMA GLOBULIN 0.5 g/dL Normal 0.4-1.8 [facility] Comment on above: Order Comment: NUNKN OWN Performed By: #### L 503.6550, L506.0250, L3100.3425, L300.4310, L3410.9999, L501.2300, L501.6710, L501.5200, L300.3900, L3130.0010, L100.9950, L503.6030, L500.4050, L101.9900, L100.0100, L504.2610, L3100.7050, L503.0105, L300.8000, L3100.7075 ####[facility] [address] [place], [address] Globulin (S) [Mass/Vol] 2.4 g/dL Normal 2.2-3.9 [facility] Comment on above: Order Comment: NUNKN OWN Performed By: #### L 503.6550, L506.0250, L3100.3425, L300.4310, L3410.9999, L501.2300, L501.6710, L501.5200, L300.3900, L3130.0010, L100.9950, L503.6030, L500.4050, L101.9900, L100.0100, L504.2610, L3100.7050, L503.0105, L300.8000, L3100.7075 ####[facility] [address] [place], [place], [phone] CARLENE RESULT,S Comment Normal . [facility] Comment on above: Order Comment: NUNKN OWN Result Comment: No m onoclonality detected. Performed By: #### L 503.6550, L506.0250, L3100.3425, L300.4310, L3410.9999, L501.2300, L501.6710, L501.5200, L300.3900, L3130.0010, L100.9950, L503.6030, L500.4050, L101.9900, L100.0100, L504.2610, L3100.7050, L503.0105, L300.8000, L3100.7075 ####[facility] [address] [place], [address] IMMUNOGLOB A QN 40 mg/dL Low 87-352 [facility] Comment on above: Order Comment: NUNKN OWN Result Comment: Resu lt confirmed on concentration. Performed By: #### L 503.6550, L506.0250, L3100.3425, L300.4310, L3410.9999, L501.2300, L501.6710, L501.5200, L300.3900, L3130.0010, L100.9950, L503.6030, L500.4050, L101.9900, L100.0100, L504.2610, L3100.7050, L503.0105, L300.8000, L3100.7075 ####[facility] [address] [place], [place], [phone] IMMUNOGLOB G QN 419 mg/dL Low 586-1602 [facility] Comment on above: Order Comment: NUNKN OWN Performed By: #### L 503.6550, L506.0250, L3100.3425, L300.4310, L3410.9999, L501.2300, L501.6710, L501.5200, L300.3900, L3130.0010, L100.9950, L503.6030, L500.4050, L101.9900, L100.0100, L504.2610, L3100.7050, L503.0105, L300.8000, L3100.7075 ####[facility] [address] [place], [place], [phone] IMMUNOGLOB M QN 78 mg/dL Normal 26-217 [facility] Comment on above: Order Comment: NUNKN OWN Performed By: #### L 503.6550, L506.0250, L3100.3425, L300.4310, L3410.9999, L501.2300, L501.6710, L501.5200, L300.3900, L3130.0010, L100.9950, L503.6030, L500.4050, L101.9900, L100.0100, L504.2610, L3100.7050, L503.0105, L300.8000, L3100.7075 ####[facility] [address] [place], [place], [phone] M-Javan Not Observed Normal Not Observed [facility] Comment on above: Order Comment: AMY OWN Performed By: #### L 503.6550, L506.0250, L3100.3425, L300.4310, L3410.9999, L501.2300, L501.6710, L501.5200, L300.3900, L3130.0010, L100.9950, L503.6030, L500.4050, L101.9900, L100.0100, L504.2610, L3100.7050, L503.0105, L300.8000, L3100.7075 ####[facility] [address] [place], [place], [phone] NOTE: Comment Normal . [facility] Comment on above: Order Comment: AMY OWN Result Comment: Prot ein electrophoresis scan will follow via computer, mail, or real estate valuer delivery. Performed By: #### L 503.6550, L506.0250, L3100.3425, L300.4310, L3410.9999, L501.2300, L501.6710, L501.5200, L300.3900, L3130.0010, L100.9950, L503.6030, L500.4050, L101.9900, L100.0100, L504.2610, L3100.7050, L503.0105, L300.8000, L3100.7075 ####[facility] [address] [place], [place], [phone] Protein [Mass/Vol] 6.2 g/dL Normal 6.0-8.5 [facility] Comment on above: Order Comment: NUNKN OWN Performed By: #### L 503.6550, L506.0250, L3100.3425, L300.4310, L3410.9999, L501.2300, L501.6710, L501.5200, L300.3900, L3130.0010, L100.9950, L503.6030, L500.4050, L101.9900, L100.0100, L504.2610, L3100.7050, L503.0105, L300.8000, L3100.7075 ####[facility] [address] [place], [place], [phone] [place] Lambda Light Chainson 11-13-2024 FR KAPPA LT CHN 19.1 mg/L Normal 3.3-19.4 [facility] Comment on above: Order Comment: NUNKN OWN Performed By: #### L 503.6550, L506.0250, L3100.3425, L300.4310, L3410.9999, L501.2300, L501.6710, L501.5200, L300.3900, L3130.0010, L100.9950, L503.6030, L500.4050, L101.9900, L100.0100, L504.2610, L3100.7050, L503.0105, L300.8000, L3100.7075 ####[facility] [address] [place], [place], [phone] FR LAMBDA LT CH 10.2 mg/L Normal 5.7-26.3 [facility] Comment on above: Order Comment: NUNKN OWN Performed By: #### L 503.6550, L506.0250, L3100.3425, L300.4310, L3410.9999, L501.2300, L501.6710, L501.5200, L300.3900, L3130.0010, L100.9950, L503.6030, L500.4050, L101.9900, L100.0100, L504.2610, L3100.7050, L503.0105, L300.8000, L3100.7075 ####[facility] [address] [place], [place], [phone] KAPPA/LAMBDA % 1.87 Abnormal 0.26-1.65 [facility] Comment on above: Order Comment: NUNCOCO OWN Result Comment: Perf ormed at: - [facility] [id number] Pharmacy Teacher: Jeffry Schreiber PhD, Phone: [phone] Performed at: - [facility] [id number] Pharmacy Teacher: Jeffy Ly MD, Phone: [phone] Performed By: #### L 503.6550, L506.0250, L3100.3425, L300.4310, L3410.9999, L501.2300, L501.6710, L501.5200, L300.3900, L3130.0010, L100.9950, L503.6030, L500.4050, L101.9900, L100.0100, L504.2610, L3100.7050, L503.0105, L300.8000, L3100.7075 ####[facility] [address] [place], [place], [phone] Protein S Antigenon 11-13-19 25 PROTEIN S, FREE 85 Normal 61-136 [facility] Comment on above: Order Comment: AMY OWN Performed By: #### L 503.6550, L506.0250, L3100.3425, L300.4310, L3410.9999, L501.2300, L501.6710, L501.5200, L300.3900, L3130.0010, L100.9950, L503.6030, L500.4050, L101.9900, L100.0100, L504.2610, L3100.7050, L503.0105, L300.8000, L3100.7075 ####[facility] [address] [place], [place], [phone] PROTEIN S,TOTAL 71 Normal 60-150 [facility] Comment on above: Order Comment: AMY OWN Result Comment: This test was developed and its performance characteristics determined by [facility]. It has not been cleared or approved by the Food and Drug Administration. Performed By: #### L 503.6550, L506.0250, L3100.3425, L300.4310, L3410.9999, L501.2300, L501.6710, L501.5200, L300.3900, L3130.0010, L100.9950, L503.6030, L500.4050, L101.9900, L100.0100, L504.2610, L3100.7050, L503.0105, L300.8000, L3100.7075 ####[facility] [address] [place], [place], [phone] Protein S Defic. Profileon 0 11-13-2024 PROTEIN S, FUNC 68 Normal 63-140 [facility] Comment on above: Order Comment: AMY OWN Result Comment: Prot ein S activity may be falsely increased (masking an abnormal, low result) in patients receiving direct Xa inhibitor (e.g., rivaroxaban, apixaban, edoxaban) or a direct thrombin inhibitor (e.g., dabigatran) anticoagulant treatment due to assay interference by these drugs. Performed By: #### L 503.6550, L506.0250, L3100.3425, L300.4310, L3410.9999, L501.2300, L501.6710, L501.5200, L300.3900, L3130.0010, L100.9950, L503.6030, L500.4050, L101.9900, L100.0100, L504.2610, L3100.7050, L503.0105, L300.8000, L3100.7075 ####[facility] [address] [place], [place], [phone] Absolute neutrophil countOrd ered By: Raymond Dias on 11-11-2024 Neutrophils (Bld) [#/Vol] 3.8 10*3/uL 2.0-7.7 [facility] Addendum DocumentOrdered By: Raymond Dias on 11-11-2024 Serum Immunofixation Comments Comment . [facility] Comment on above: Protein electrophore sis scan will follow via computer,mail, or real estate valuer delivery. Albumin Elph [Mass/Vol]Order ed By: Raymond Dias on 11-11-2024 Albumin [Mass/Vol] 3.8 g/dL 2.9-4.4 [facility] Albumin to globulin ratioOrd ered By: Raymond Dias on 11-11-2024 Albumin/Globulin [Mass ratio] 1.4 {ratio} 0.9-2.4 [facility] Alpha 1 globulin Elph [Mass/ Vol]Ordered By: Raymond Dias on 11-11-2024 Bazli-2-Fvnvxbyvg (CARLENE) 0.3 g/dL 0.0-0.4 [facility] Mmdsf-5-Frgunncik (CARLENE) 0.7 g/dL 0.4-1.0 [facility] Basophil percentageOrdered B y: Raymond Dias on 11-11-2024 Basophils/100 WBC (Bld) 0.4 % 0-1 [facility] Beta globulin Elph [Mass/Vol ]Ordered By: Raymond Dias on 11-11-2024 Beta-Globulins (CARLENE) 0.9 g/dL 0.7-1.3 [facility] Bilirubin, totalOrdered By: Raymond Dias on 11-11-2024 Bilirubin [Mass/Vol] 0.40 mg/dL 0.20-1.00 [facility] Comment on above: For patients on eltr ombopag therapy, use of Dimension [place] TBIL is not recommended. Blood urea nitrogen (BUN)/cr eatinine ratioOrdered By: Raymond Dias on 11-11-2024 Urea nitrogen/Creatinine [Mass ratio] 16.8 mg/mg 10-20 [facility] C-reactive protein measureme nt by high sensitivity methodOrdered By: Raymond Dias on 11-11-2024 C-Reactive Protein Extended Range < 2.90 mg/L 0.0-3.0 [facility] Comment on above: C-Reactive Protein ( CRP) provides useful information for thediagnosis, therapy and monitoring of inflammatory processesand associated diseases. For the evaluation of Relative Riskfor Cardiovascular Disease, a High Sensitivity CRP (HSCRP)should be ordered. CBC W/Diff, Automatedon 10-24 0-2024 Absolute Lymph 1.04 X10 3/uL Normal 0.83-4.51 [facility] Comment on above: Performed By: #### L 503.6550, L506.0250, L3100.3425, L300.4310, L3410.9999, L501.2300, L501.6710, L501.5200, L300.3900, L3130.0010, L100.9950, L503.6030, L500.4050, L101.9900, L100.0100, L504.2610, L3100.7050, L503.0105, L300.8000, L3100.7075 ####[facility] [address] [place], [place], [phone] Absolute Neut 3.8 X10 3/uL Normal 2.0-7.7 [facility] Comment on above: Performed By: #### L 503.6550, L506.0250, L3100.3425, L300.4310, L3410.9999, L501.2300, L501.6710, L501.5200, L300.3900, L3130.0010, L100.9950, L503.6030, L500.4050, L101.9900, L100.0100, L504.2610, L3100.7050, L503.0105, L300.8000, L3100.7075 ####[facility] [address] [place], [place], [phone] Basophils/100 WBC (Bld) 0.4 % Normal 0-1 [facility] Comment on above: Performed By: #### L 503.6550, L506.0250, L3100.3425, L300.4310, L3410.9999, L501.2300, L501.6710, L501.5200, L300.3900, L3130.0010, L100.9950, L503.6030, L500.4050, L101.9900, L100.0100, L504.2610, L3100.7050, L503.0105, L300.8000, L3100.7075 ####[facility] [address] [place], [place], [phone] Eosinophils/100 WBC (Bld) 5.2 % High 0-5 [facility] Comment on above: Performed By: #### L 503.6550, L506.0250, L3100.3425, L300.4310, L3410.9999, L501.2300, L501.6710, L501.5200, L300.3900, L3130.0010, L100.9950, L503.6030, L500.4050, L101.9900, L100.0100, L504.2610, L3100.7050, L503.0105, L300.8000, L3100.7075 ####[facility] [address] [place], [address] Erythrocyte distribution width (RBC) [Ratio] 13.0 % Normal 11.6-14.6 [facility] Comment on above: Performed By: #### L 503.6550, L506.0250, L3100.3425, L300.4310, L3410.9999, L501.2300, L501.6710, L501.5200, L300.3900, L3130.0010, L100.9950, L503.6030, L500.4050, L101.9900, L100.0100, L504.2610, L3100.7050, L503.0105, L300.8000, L3100.7075 ####[facility] [address] [place], [place], [phone] Hematocrit (Bld) [Volume fraction] 40.3 % Normal 37-47 [facility] Comment on above: Performed By: #### L 503.6550, L506.0250, L3100.3425, L300.4310, L3410.9999, L501.2300, L501.6710, L501.5200, L300.3900, L3130.0010, L100.9950, L503.6030, L500.4050, L101.9900, L100.0100, L504.2610, L3100.7050, L503.0105, L300.8000, L3100.7075 ####[facility] [id number] [place], [place], [address] Hemoglobin (Bld) [Mass/Vol] 13.1 g/dL Normal 12.0-15.0 [facility] Comment on above: Performed By: #### L 503.6550, L506.0250, L3100.3425, L300.4310, L3410.9999, L501.2300, L501.6710, L501.5200, L300.3900, L3130.0010, L100.9950, L503.6030, L500.4050, L101.9900, L100.0100, L504.2610, L3100.7050, L503.0105, L300.8000, L3100.7075 ####[facility] [address] [place], [place], [phone] IG% 0.400 Normal 0.0-0.9 [facility] Comment on above: Result Comment: IG% - Immature Granulocytes (promyelocytes, myelocytes and metamyelocytes) > 1% indicates that a LEFT SHIFT is Present. Performed By: #### L 503.6550, L506.0250, L3100.3425, L300.4310, L3410.9999, L501.2300, L501.6710, L501.5200, L300.3900, L3130.0010, L100.9950, L503.6030, L500.4050, L101.9900, L100.0100, L504.2610, L3100.7050, L503.0105, L300.8000, L3100.7075 ####[facility] [address] [place], [address] Lymphocytes/100 WBC (Bld) 18.6 % Low 19-41 [facility] Comment on above: Performed By: #### L 503.6550, L506.0250, L3100.3425, L300.4310, L3410.9999, L501.2300, L501.6710, L501.5200, L300.3900, L3130.0010, L100.9950, L503.6030, L500.4050, L101.9900, L100.0100, L504.2610, L3100.7050, L503.0105, L300.8000, L3100.7075 ####[facility] [address] [place], [address] MCH (RBC) [Entitic mass] 30.1 pg Normal 27.0-32.0 [facility] Comment on above: Performed By: #### L 503.6550, L506.0250, L3100.3425, L300.4310, L3410.9999, L501.2300, L501.6710, L501.5200, L300.3900, L3130.0010, L100.9950, L503.6030, L500.4050, L101.9900, L100.0100, L504.2610, L3100.7050, L503.0105, L300.8000, L3100.7075 ####[facility] [address] [place], [address] MCHC (RBC) [Mass/Vol] 32.5 g/dL Normal 32-36 [facility] Comment on above: Performed By: #### L 503.6550, L506.0250, L3100.3425, L300.4310, L3410.9999, L501.2300, L501.6710, L501.5200, L300.3900, L3130.0010, L100.9950, L503.6030, L500.4050, L101.9900, L100.0100, L504.2610, L3100.7050, L503.0105, L300.8000, L3100.7075 ####[facility] [address] [place], [address] MCV (RBC) [Entitic vol] 92.6 fL Normal 81-99 [facility] Comment on above: Performed By: #### L 503.6550, L506.0250, L3100.3425, L300.4310, L3410.9999, L501.2300, L501.6710, L501.5200, L300.3900, L3130.0010, L100.9950, L503.6030, L500.4050, L101.9900, L100.0100, L504.2610, L3100.7050, L503.0105, L300.8000, L3100.7075 ####[facility] [address] [place], [address] Monocytes/100 WBC (Bld) 6.8 % Normal 0-10 [facility] Comment on above: Performed By: #### L 503.6550, L506.0250, L3100.3425, L300.4310, L3410.9999, L501.2300, L501.6710, L501.5200, L300.3900, L3130.0010, L100.9950, L503.6030, L500.4050, L101.9900, L100.0100, L504.2610, L3100.7050, L503.0105, L300.8000, L3100.7075 ####[facility] [address] [place], [address] Neutrophils/100 WBC (Bld) 68.6 % Normal 47-70 [facility] Comment on above: Performed By: #### L 503.6550, L506.0250, L3100.3425, L300.4310, L3410.9999, L501.2300, L501.6710, L501.5200, L300.3900, L3130.0010, L100.9950, L503.6030, L500.4050, L101.9900, L100.0100, L504.2610, L3100.7050, L503.0105, L300.8000, L3100.7075 ####[facility] [address] [place], [place], [phone] Nucleated RBC (Bld) [#/Vol] 0 10*3/uL Normal 0-5 [facility] Comment on above: Performed By: #### L 503.6550, L506.0250, L3100.3425, L300.4310, L3410.9999, L501.2300, L501.6710, L501.5200, L300.3900, L3130.0010, L100.9950, L503.6030, L500.4050, L101.9900, L100.0100, L504.2610, L3100.7050, L503.0105, L300.8000, L3100.7075 ####[facility] [address] [place], [place], [phone] Platelet mean volume (Bld) [Entitic vol] 9.7 fL Normal 6.2-12.0 [facility] Comment on above: Performed By: #### L 503.6550, L506.0250, L3100.3425, L300.4310, L3410.9999, L501.2300, L501.6710, L501.5200, L300.3900, L3130.0010, L100.9950, L503.6030, L500.4050, L101.9900, L100.0100, L504.2610, L3100.7050, L503.0105, L300.8000, L3100.7075 ####[facility] [address] [place], [place], [phone] Platelets (Bld) [#/Vol] 268 10*3/uL Normal 150-450 [facility] Comment on above: Performed By: #### L 503.6550, L506.0250, L3100.3425, L300.4310, L3410.9999, L501.2300, L501.6710, L501.5200, L300.3900, L3130.0010, L100.9950, L503.6030, L500.4050, L101.9900, L100.0100, L504.2610, L3100.7050, L503.0105, L300.8000, L3100.7075 ####[facility] [address] [place], [place], [phone](948) RBC (Bld) [#/Vol] 4.35 10*6/uL Normal 4.2-5.4 [facility] Comment on above: Performed By: #### L 503.6550, L506.0250, L3100.3425, L300.4310, L3410.9999, L501.2300, L501.6710, L501.5200, L300.3900, L3130.0010, L100.9950, L503.6030, L500.4050, L101.9900, L100.0100, L504.2610, L3100.7050, L503.0105, L300.8000, L3100.7075 ####[facility] [address] [place], [place], [phone] RDW SD 44.1 fl High 35.1-43.9 [facility] Comment on above: Performed By: #### L 503.6550, L506.0250, L3100.3425, L300.4310, L3410.9999, L501.2300, L501.6710, L501.5200, L300.3900, L3130.0010, L100.9950, L503.6030, L500.4050, L101.9900, L100.0100, L504.2610, L3100.7050, L503.0105, L300.8000, L3100.7075 ####[facility] [address] [place], [place], [phone] WBC (Bld) [#/Vol] 5.6 10*3/uL Normal 4.4-11.0 [facility] Comment on above: Performed By: #### L 503.6550, L506.0250, L3100.3425, L300.4310, L3410.9999, L501.2300, L501.6710, L501.5200, L300.3900, L3130.0010, L100.9950, L503.6030, L500.4050, L101.9900, L100.0100, L504.2610, L3100.7050, L503.0105, L300.8000, L3100.7075 ####[facility] [address] [place], [place], [phone] CRPon 11-11-2024 C-REACTIVE PROT < 2.90 Normal 0.0-3.0 [facility] Comment on above: Order Comment: UNKNO WN1N Result Comment: C-Re active Protein (CRP) provides useful information for the diagnosis, therapy and monitoring of inflammatory processes and associated diseases. For the evaluation of Relative Risk for Cardiovascular Disease, a High Sensitivity CRP (HSCRP) should be ordered. Performed By: #### L 503.6550, L506.0250, L3100.3425, L300.4310, L3410.9999, L501.2300, L501.6710, L501.5200, L300.3900, L3130.0010, L100.9950, L503.6030, L500.4050, L101.9900, L100.0100, L504.2610, L3100.7050, L503.0105, L300.8000, L3100.7075 ####[facility] [address] [place], [place], [phone] Carbon dioxide measurementOr dered By: Raymond Dias on 11-11-2024 CO2 [Moles/Vol] 24.0 mmol/L 21.0-32.0 [facility] Chloride measurementOrdered By: Raymond Dias on 11-11-2024 Chloride [Moles/Vol] 111 mmol/L High 98-107 [facility] Comprehensive Metabolic Prof ilon 11-11-2024 Albumin [Mass/Vol] 3.7 g/dL Normal 3.2-5.0 [facility] Comment on above: Order Comment: UNKNO WN1N Performed By: #### L 503.6550, L506.0250, L3100.3425, L300.4310, L3410.9999, L501.2300, L501.6710, L501.5200, L300.3900, L3130.0010, L100.9950, L503.6030, L500.4050, L101.9900, L100.0100, L504.2610, L3100.7050, L503.0105, L300.8000, L3100.7075 ####[facility] [address] [place], [place], [phone] Albumin/Globulin [Mass ratio] 1.4 {ratio} Normal 0.9-2.4 [facility] Comment on above: Order Comment: UNKNO WN1N Performed By: #### L 503.6550, L506.0250, L3100.3425, L300.4310, L3410.9999, L501.2300, L501.6710, L501.5200, L300.3900, L3130.0010, L100.9950, L503.6030, L500.4050, L101.9900, L100.0100, L504.2610, L3100.7050, L503.0105, L300.8000, L3100.7075 ####[facility] [address] [place], [place], [phone] ALK P 62 U/L Normal 45-117 [facility] Comment on above: Order Comment: UNKNO WN1N Performed By: #### L 503.6550, L506.0250, L3100.3425, L300.4310, L3410.9999, L501.2300, L501.6710, L501.5200, L300.3900, L3130.0010, L100.9950, L503.6030, L500.4050, L101.9900, L100.0100, L504.2610, L3100.7050, L503.0105, L300.8000, L3100.7075 ####[facility] [address] [place], [place], [phone] ALT [Catalytic activity/Vol] 13 U/L Normal 13-56 [facility] Comment on above: Order Comment: UNKNO WN1N Performed By: #### L 503.6550, L506.0250, L3100.3425, L300.4310, L3410.9999, L501.2300, L501.6710, L501.5200, L300.3900, L3130.0010, L100.9950, L503.6030, L500.4050, L101.9900, L100.0100, L504.2610, L3100.7050, L503.0105, L300.8000, L3100.7075 ####[facility] [address] [place], [place], [phone] AST [Catalytic activity/Vol] 11 U/L Low 15-37 [facility] Comment on above: Order Comment: UNKNO WN1N Performed By: #### L 503.6550, L506.0250, L3100.3425, L300.4310, L3410.9999, L501.2300, L501.6710, L501.5200, L300.3900, L3130.0010, L100.9950, L503.6030, L500.4050, L101.9900, L100.0100, L504.2610, L3100.7050, L503.0105, L300.8000, L3100.7075 ####[facility] [address] [place], [place], [phone] Bilirubin [Mass/Vol] 0.40 mg/dL Normal 0.20-1.00 [facility] Comment on above: Order Comment: UNKNO WN1N Result Comment: For patients on eltrombopag therapy, use of Dimension [place] TBIL is not recommended. Performed By: #### L 503.6550, L506.0250, L3100.3425, L300.4310, L3410.9999, L501.2300, L501.6710, L501.5200, L300.3900, L3130.0010, L100.9950, L503.6030, L500.4050, L101.9900, L100.0100, L504.2610, L3100.7050, L503.0105, L300.8000, L3100.7075 ####[facility] [address] [place], [address] BUN/CRE 16.8 RATIO Normal 10-20 [facility] Comment on above: Order Comment: UNKNO WN1N Performed By: #### L 503.6550, L506.0250, L3100.3425, L300.4310, L3410.9999, L501.2300, L501.6710, L501.5200, L300.3900, L3130.0010, L100.9950, L503.6030, L500.4050, L101.9900, L100.0100, L504.2610, L3100.7050, L503.0105, L300.8000, L3100.7075 ####[facility] [address] [place], [phone](007) CA,Total 8.9 mg/dL Normal 8.5-10.1 [facility] Comment on above: Order Comment: UNKNO WN1N Performed By: #### L 503.6550, L506.0250, L3100.3425, L300.4310, L3410.9999, L501.2300, L501.6710, L501.5200, L300.3900, L3130.0010, L100.9950, L503.6030, L500.4050, L101.9900, L100.0100, L504.2610, L3100.7050, L503.0105, L300.8000, L3100.7075 ####[facility] [address] [place], [place], [phone](981) Chloride [Moles/Vol] 111 mmol/L High 98-107 [facility] Comment on above: Order Comment: UNKNO WN1N Performed By: #### L 503.6550, L506.0250, L3100.3425, L300.4310, L3410.9999, L501.2300, L501.6710, L501.5200, L300.3900, L3130.0010, L100.9950, L503.6030, L500.4050, L101.9900, L100.0100, L504.2610, L3100.7050, L503.0105, L300.8000, L3100.7075 ####[facility] [address] [place], [place], [phone] CO2 [Moles/Vol] 24.0 mmol/L Normal 21.0-32.0 [facility] Comment on above: Order Comment: UNKNO WN1N Performed By: #### L 503.6550, L506.0250, L3100.3425, L300.4310, L3410.9999, L501.2300, L501.6710, L501.5200, L300.3900, L3130.0010, L100.9950, L503.6030, L500.4050, L101.9900, L100.0100, L504.2610, L3100.7050, L503.0105, L300.8000, L3100.7075 ####[facility] [address] [place], [place], [phone] Creatinine [Mass/Vol] 0.83 mg/dL Normal 0.55-1.02 [facility] Comment on above: Order Comment: UNKNO WN1N Result Comment: The validity of the calculated GFR GFRAA in patients over 70 years has not been determined. Clinical correlation is essential. Performed By: #### L 503.6550, L506.0250, L3100.3425, L300.4310, L3410.9999, L501.2300, L501.6710, L501.5200, L300.3900, L3130.0010, L100.9950, L503.6030, L500.4050, L101.9900, L100.0100, L504.2610, L3100.7050, L503.0105, L300.8000, L3100.7075 ####[facility] [address] [place], [place], [phone] EST GFR - AA 95 mL/min Normal >60 [facility] Comment on above: Order Comment: UNKNO WN1N Result Comment: Afri can Liberian GFR Calc Performed By: #### L 503.6550, L506.0250, L3100.3425, L300.4310, L3410.9999, L501.2300, L501.6710, L501.5200, L300.3900, L3130.0010, L100.9950, L503.6030, L500.4050, L101.9900, L100.0100, L504.2610, L3100.7050, L503.0105, L300.8000, L3100.7075 ####[facility] [address] [place], [place], [phone] GAP 6 Normal 5-15 [facility] Comment on above: Order Comment: UNKNO WN1N Performed By: #### L 503.6550, L506.0250, L3100.3425, L300.4310, L3410.9999, L501.2300, L501.6710, L501.5200, L300.3900, L3130.0010, L100.9950, L503.6030, L500.4050, L101.9900, L100.0100, L504.2610, L3100.7050, L503.0105, L300.8000, L3100.7075 ####[facility] [address] [facility] [place], [place], [phone] GFR/1.73 sq M.predicted among non-blacks MDRD (S/P/Bld) [Vol rate/Area] 79 mL/min/{1.73_m2} Normal >60 [facility] Comment on above: Order Comment: UNKNO WN1N Result Comment: Non- GFR Calc Performed By: #### L 503.6550, L506.0250, L3100.3425, L300.4310, L3410.9999, L501.2300, L501.6710, L501.5200, L300.3900, L3130.0010, L100.9950, L503.6030, L500.4050, L101.9900, L100.0100, L504.2610, L3100.7050, L503.0105, L300.8000, L3100.7075 ####[facility] [address] [place], [place], [phone] Globulin (S) [Mass/Vol] 2.6 g/dL Normal 2.2-4.2 [facility] Comment on above: Order Comment: UNKNO WN1N Performed By: #### L 503.6550, L506.0250, L3100.3425, L300.4310, L3410.9999, L501.2300, L501.6710, L501.5200, L300.3900, L3130.0010, L100.9950, L503.6030, L500.4050, L101.9900, L100.0100, L504.2610, L3100.7050, L503.0105, L300.8000, L3100.7075 ####[facility] [address] [place], [address] Glucose [Mass/Vol] 90 mg/dL Normal 74-106 [facility] Comment on above: Order Comment: UNKNO WN1N Performed By: #### L 503.6550, L506.0250, L3100.3425, L300.4310, L3410.9999, L501.2300, L501.6710, L501.5200, L300.3900, L3130.0010, L100.9950, L503.6030, L500.4050, L101.9900, L100.0100, L504.2610, L3100.7050, L503.0105, L300.8000, L3100.7075 ####[facility] [address] [place], [address] Potassium [Moles/Vol] 3.4 mmol/L Low 3.5-5.1 [facility] Comment on above: Order Comment: UNKNO WN1N Performed By: #### L 503.6550, L506.0250, L3100.3425, L300.4310, L3410.9999, L501.2300, L501.6710, L501.5200, L300.3900, L3130.0010, L100.9950, L503.6030, L500.4050, L101.9900, L100.0100, L504.2610, L3100.7050, L503.0105, L300.8000, L3100.7075 ####[facility] [address] [place], [address] Sodium [Moles/Vol] 141 mmol/L Normal 136-145 [facility] Comment on above: Order Comment: UNKNO WN1N Performed By: #### L 503.6550, L506.0250, L3100.3425, L300.4310, L3410.9999, L501.2300, L501.6710, L501.5200, L300.3900, L3130.0010, L100.9950, L503.6030, L500.4050, L101.9900, L100.0100, L504.2610, L3100.7050, L503.0105, L300.8000, L3100.7075 ####[facility] [address] [facility] [place], [place], [phone] T PROT 6.3 g/dL Low 6.4-8.2 [facility] Comment on above: Order Comment: UNKNO WN1N Performed By: #### L 503.6550, L506.0250, L3100.3425, L300.4310, L3410.9999, L501.2300, L501.6710, L501.5200, L300.3900, L3130.0010, L100.9950, L503.6030, L500.4050, L101.9900, L100.0100, L504.2610, L3100.7050, L503.0105, L300.8000, L3100.7075 ####[facility] [address] [place], [address] Urea nitrogen [Mass/Vol] 14 mg/dL Normal 7-18 [facility] Comment on above: Order Comment: UNKNO WN1N Performed By: #### L 503.6550, L506.0250, L3100.3425, L300.4310, L3410.9999, L501.2300, L501.6710, L501.5200, L300.3900, L3130.0010, L100.9950, L503.6030, L500.4050, L101.9900, L100.0100, L504.2610, L3100.7050, L503.0105, L300.8000, L3100.7075 ####[facility] [address] [place], [address] D-Dimer Quantitative (DVT/PE )on 11-11-2024 D-DIMER QUANT < 0.27 Low 0.27-0.49 [facility] Comment on above: Result Comment: NORM AL D-Dimer level (<0.50) indicates no DVT or PE. Performed By: #### L 503.6550, L506.0250, L3100.3425, L300.4310, L3410.9999, L501.2300, L501.6710, L501.5200, L300.3900, L3130.0010, L100.9950, L503.6030, L500.4050, L101.9900, L100.0100, L504.2610, L3100.7050, L503.0105, L300.8000, L3100.7075 ####[facility] [address] [place], [address] D-dimer measurement for deep venous thrombosisOrdered By: Raymond Dias on 11-11-2024 D-Dimer Quantitative (PE/DVT) < 0.27 FEU/ug/m Low 0.27-0.49 [facility] Comment on above: NORMAL D-Dimer level (<0.50) indicates no DVT or PE. Eosinophil percentageOrdered By: Raymond Dias on 11-11-2024 Eosinophils/100 WBC (Bld) 5.2 % High 0-5 [facility] Erythrocyte Sed Rateon 11-11 SED RATE < 1 Normal 0-30 [facility] Comment on above: Performed By: #### L 503.6550, L506.0250, L3100.3425, L300.4310, L3410.9999, L501.2300, L501.6710, L501.5200, L300.3900, L3130.0010, L100.9950, L503.6030, L500.4050, L101.9900, L100.0100, L504.2610, L3100.7050, L503.0105, L300.8000, L3100.7075 ####[facility] [address] [facility] [place], [place], [phone] Erythrocyte distribution wid th ratioOrdered By: Raymond Dias on 11-11-2024 Erythrocyte distribution width (RBC) [Ratio] 13.0 % 11.6-14.6 [facility] Erythrocyte distribution wid th standard deviationOrdered By: Raymond Dias on 11-11-2024 Erythrocyte distribution width (RBC) [Entitic vol] 44.1 fL High 35.1-43.9 [facility] Erythrocyte sedimentation ra teOrdered By: Raymond Dias on 11-11-2024 ESR (Bld) [Velocity] mm/h 0-30 [facility] Estimated glomerular filtrat ion rate (GFR) AmericanOrdered By: Raymond Dias on 11-11-2024 Estimated GFR (MDRD) Amer 95 mL/min >60 [facility] Comment on above: GFR Calc Ferritinon 11-11-2024 Ferritin [Mass/Vol] 16 ng/mL Normal - [facility] Comment on above: Order Comment: UNKNO WN1N Performed By: #### L 503.6550, L506.0250, L3100.3425, L300.4310, L3410.9999, L501.2300, L501.6710, L501.5200, L300.3900, L3130.0010, L100.9950, L503.6030, L500.4050, L101.9900, L100.0100, L504.2610, L3100.7050, L503.0105, L300.8000, L3100.7075 ####[facility] [address] [facility] [place], [place], [phone] Ferritin measurementOrdered By: Raymond Dias on 11-11-2024 Ferritin [Mass/Vol] 16 ng/mL 8- [facility] Folates, (Folic Acid)on 10-24 FOLATES 6.00 ng/mL Normal 3.1-55.4 [facility] Comment on above: Order Comment: UNKNO WN1N Performed By: #### L 503.6550, L506.0250, L3100.3425, L300.4310, L3410.9999, L501.2300, L501.6710, L501.5200, L300.3900, L3130.0010, L100.9950, L503.6030, L500.4050, L101.9900, L100.0100, L504.2610, L3100.7050, L503.0105, L300.8000, L3100.7075 ####[facility] [id number] [place], [address] Folic acid measurementOrdere d By: Raymond Dias on 11-11-2024 Folate 6.00 ng/mL 3.1-55.4 [facility] Gamma globulin Elph [Mass/Vo l]Ordered By: Raymond Dias on 11-11-2024 Gamma Globulins (CARLENE) 0.5 g/dL 0.4-1.8 [facility] Glomerular filtration rate ( GFR) estimationOrdered By: Raymond Dias on 11-11-2024 Estimated GFR (MDRD) Non-Af Amer 79 mL/min >60 [facility] Comment on above: Non- GFR Calc Glucose measurementOrdered B y: Raymond Dias on 11-11-2024 Glucose [Mass/Vol] 90 mg/dL 74-106 [facility] Hematocrit Auto (Bld) [Volum e fraction]Ordered By: Raymond Dias on 11-11-2024 Hematocrit (Bld) [Volume fraction] 40.3 % 37-47 [facility] Hemoglobin (Reticulocytes) [ Entitic mass]Ordered By: Raymond Dias on 11-11-2024 Reticulocyte Hemoglobin Equivalent 32.7 pg 30-35 [facility] Hemoglobin measurementOrdere d By: Raymond Dias on 11-11-2024 Hemoglobin (Bld) [Mass/Vol] 13.1 g/dL 12.0-15.0 [facility] IgA [Mass/Vol]Ordered By: Ronel Dias on 11-11-2024 Immunoglobulin A 40 mg/dL Low 87-352 [facility] Comment on above: Result confirmed on concentration. IgG [Mass/Vol]Ordered By: Ronel Dias on 11-11-2024 Immunoglobulin G 419 mg/dL Low 586-1602 [facility] Immature granulocytes/100 WB C Auto (Bld)Ordered By: Raymond Dias on 11-11-2024 Immature granulocytes/100 WBC (Bld) 0.400 % 0.0-0.9 [facility] Comment on above: IG% - Immature Granu locytes (promyelocytes, myelocytes and metamyelocytes) > 1% indicates that a LEFT SHIFT is Present. Immature reticulocyte fracti onOrdered By: Raymond Dias on 11-11-2024 Immature Reticulocyte Fraction 8.50 % 3.00-15.90 [facility] Immunoglobulin M measurement Ordered By: Raymond [facility] on 11-11-2024 Immunoglobulin M 78 mg/dL 26-217 [facility] Immunoglobulin light chains. kappa [Mass/Vol]Ordered By: Raymond Dias on 11-11-2024 Free [place] Light Chains, Quant 19.1 mg/L 3.3-19.4 [facility] Immunoglobulin light chains. kappa/Immunoglobulin light chains.lambda (S) [Mass ratio]Ordered By: Raymond Dias on 11-11-2024 Free [place]/Lambda Light Chain Ratio 1.87 High 0.26-1.65 [facility] Comment on above: Performed at: [address] [id number] Director: Jeffry Schreiber PhD, Phone: [phone] at: [facility] [address] [id number] Director: Jeffy Ly MD, Phone: [phone] International normalized rat io (INR) calculationOrdered By: Raymond Dias on 11-11-2024 INR Coag (Bld) [Relative time] 0.9 {INR} [facility] Interpretation IEP [Interp]O rdered By: Raymond Dias on 11-11-2024 Immunofixation Screen Comment . [facility] Comment on above: No monoclonality det ected. Iron (Unsp spec) [Mass/Mass] Ordered By: Raymond Dias on 11-11-2024 Iron [Mass/Vol] 41 ug/dL Low 50-170 [facility] Iron saturation [Mass fracti on]Ordered By: Raymond Dias on 11-11-2024 Iron Saturation 13.1 % Low 15.0-55.0 [facility] Iron+Iron Binding Capacityon 11-11-2024 Iron [Mass/Vol] 41 ug/dL Low 50-170 [facility] Comment on above: Order Comment: UNKNO WN1N Performed By: #### L 503.6550, L506.0250, L3100.3425, L300.4310, L3410.9999, L501.2300, L501.6710, L501.5200, L300.3900, L3130.0010, L100.9950, L503.6030, L500.4050, L101.9900, L100.0100, L504.2610, L3100.7050, L503.0105, L300.8000, L3100.7075 ####[facility] [address] [place], [address] IRON SATURATION 13.1 Low 15.0-55.0 [facility] Comment on above: Order Comment: UNKNO WN1N Performed By: #### L 503.6550, L506.0250, L3100.3425, L300.4310, L3410.9999, L501.2300, L501.6710, L501.5200, L300.3900, L3130.0010, L100.9950, L503.6030, L500.4050, L101.9900, L100.0100, L504.2610, L3100.7050, L503.0105, L300.8000, L3100.7075 ####[facility] [address] [place], [place], [id number] TIBC 312 ug/dL Normal 250-450 [facility] Comment on above: Order Comment: UNKNO WN1N Performed By: #### L 503.6550, L506.0250, L3100.3425, L300.4310, L3410.9999, L501.2300, L501.6710, L501.5200, L300.3900, L3130.0010, L100.9950, L503.6030, L500.4050, L101.9900, L100.0100, L504.2610, L3100.7050, L503.0105, L300.8000, L3100.7075 ####[facility] [address] [place], [place], [id number] LDHon 11-11-2024 LDH 170 U/L Normal 84-246 [facility] Comment on above: Order Comment: UNKNO WN1N Performed By: #### L 503.6550, L506.0250, L3100.3425, L300.4310, L3410.9999, L501.2300, L501.6710, L501.5200, L300.3900, L3130.0010, L100.9950, L503.6030, L500.4050, L101.9900, L100.0100, L504.2610, L3100.7050, L503.0105, L300.8000, L3100.7075 ####[facility] [address] [place], [place], [id number] Laboratory - Chemistry and C hemistry - challengeOrdered By: Raymond Dias on 11-11-2024 AST [Catalytic activity/Vol] 11 U/L Low 15-37 [facility] Lactate dehydrogenase (LDH) measurementOrdered By: Raymond Dias on 11-11-2024 LDH [Catalytic activity/Vol] 170 U/L 84-246 [facility] Lambda free light chain gomez urementOrdered By: Raymond Dias on 11-11-2024 Free Lambda Light Chains, Quant 10.2 mg/L 5.7-26.3 [facility] Lymphocytes Auto (Unsp spec) [#/Vol]Ordered By: Raymond Dias on 11-11-2024 Lymphocytes (Bld) [#/Vol] 1.04 10*3/uL 0.83-4.51 [facility] Lymphocytes/100 WBC Auto (Un sp spec)Ordered By: Raymond Dias on 11-11-2024 Lymphocytes/100 WBC (Bld) 18.6 % Low 19-41 [facility] MCV (mean corpuscular volume ) determinationOrdered By: Raymond Dias on 11-11-2024 MCV (RBC) [Entitic vol] 92.6 fL 81-99 [facility] Magnesiumon 11-11-2024 Magnesium [Mass/Vol] 2.0 mg/dL Normal 1.6-2.6 [facility] Comment on above: Order Comment: UNKNO WN1N Performed By: #### L 503.6550, L506.0250, L3100.3425, L300.4310, L3410.9999, L501.2300, L501.6710, L501.5200, L300.3900, L3130.0010, L100.9950, L503.6030, L500.4050, L101.9900, L100.0100, L504.2610, L3100.7050, L503.0105, L300.8000, L3100.7075 ####[facility] [address] [place], [address] Magnesium measurementOrdered By: Raymond Dias on 11-11-2024 Magnesium [Mass/Vol] 2.0 mg/dL 1.6-2.6 [facility] Mean corpuscular hemoglobin (MCH) determinationOrdered By: Raymond Dias on 11-11-2024 MCH (RBC) [Entitic mass] 30.1 pg 27.0-32.0 [facility] Mean corpuscular hemoglobin concentration (MCHC) determinationOrdered By: Raymond Dias on 11-11-2024 MCHC (RBC) [Mass/Vol] 32.5 g/dL 32-36 [facility] Mean platelet volume determi nationOrdered By: Raymond Dias on 11-11-2024 Platelet mean volume (Bld) [Entitic vol] 9.7 fL 6.2-12.0 [facility] Monocyte percentageOrdered B y: Raymond Dias on 11-11-2024 Monocytes/100 WBC (Bld) 6.8 % 0-10 [facility] Neutrophil percentageOrdered By: Raymond Dias on 11-11-2024 Neutrophils/100 WBC (Bld) 68.6 % 47-70 [facility] No Panel InformationOrdered By: Raymond Dias on 11-11-2024 Miscellaneous Test COMMENT . [facility] Comment on above: Test Ordered: [id number] Thrombotic Risk Profile IHomocyst(e)ine 14.8 [H ] umol/L CB Reference Range: 0.0-14.5Plasminogen 112 % BN Reference Range: 70-150Antithrombin Activity 168 [H ] % BN Reference Range: 75-135An elevated antithrombin activity is of no known clinicalsignificance. Direct Xa inhibitor anticoagulants such asrivaroxaban, apixaban and edoxaban will lead to spuriouslyelevated antithrombin activity levels possibly masking adeficiency.Protein C-Functional 88 % BN Reference Range: 73-180Protein S, Free 84 % BN Reference Range: 61-136Act.Prt.C Resist. 2.8 ratio BN Reference Range: 2.2-3.5The APCR result may be falsely increased (masking anabnormal, low APCR result) in patients on direct Xainhibitor (e.g., rivaroxaban, apixaban, edoxaban) or adirect thrombin inhibitor (e.g., dabigatran) anticoagulanttherapy due to assay interference by these drugs.PTT-LA 35.2 sec BN Reference Range: 0.0-43.5dRVVT 33.5 sec BN Reference Range: 0.0-47.0Lupus Reflex Interpretation Comment: BN Reference Range: .No lupus anticoagulant was detected.Dilute Prothrombin Time(dPT) 33.5 sec BN Reference Range: 0.0-47.6dPT Confirm Ratio 1.11 Ratio BN Reference Range: 0.00-1.34Anticardiolipin Ab,IgG,Qn <9 GPL U/mL CB Reference Range: 0-14 Negative: <15 Indeterminate: 15 - 20 Low-Med Positive: >20 - 80 High Positive: >80Anticardiolipin Ab,IgM,Qn <9 MPL U/mL CB Reference Range: 0-12 Negative: <13 Indeterminate: 13 - 20 Low-Med Positive: >20 - 80 High Positive: >80Beta-2 Glycoprotein I Ab, IgG <9 CB Units of Measure: GPI IgG units Reference Range: 0-20The reference interval reflects a 3SD or 99th percentileinterval, which is thought to represent a potentiallyclinically significant result in accordance with theInternational Consensus Statement on the classificationcriteria for definitive antiphospholipid syndrome (APS). JThromb Haem 2006;4:295-306.Beta-2 Glycoprotein I Ab, IgM <9 CB Units of Measure: GPI IgM units Reference Range: 0-32The reference interval reflects a 3SD or 99th percentileinterval, which is thought to represent a potentiallyclinically significant result in accordance with theInternational Consensus Statement on the classificationcriteria for definitive antiphospholipid syndrome (APS). JThromb Haem 2006;4:295-306.Factor II, DNA Analysis Comment TG Reference Range: .Result: c.*97G>A - Not DetectedThis result is not associated with an increased risk for venousthromboembolism. See Additional Clinical Information andComments.Additional Clinical Information:Venous thromboembolism is a multifactorial disease influenced bygenetic, environmental, and circumstantial risk factors. The c.*97G>Avariant in the F2 gene is a genetic risk factor for venousthromboembolism. Heterozygous carriers have a 2- to 4-fold increasedrisk for venous thromboembolism. Homozygotes for the c.*97G>A variantare rare. The annual risk of VTE in homozygotes has been reported la 1.1%/year. Individuals who carry both a c.*97G>A variant in theF2 gene and a c.1601G>A (p. Cik169Dru) variant in the F5 gene(commonly referred to as Factor V Leiden) have an approximately 20-fold increased risk for venous thromboembolism. Risks are likely la even higher in more complex genotype combinations involving theF2 c.*97G>A variant and Factor V Leiden (PMID: [id number]). Additionalrisk factors include but are not limited to: deficiency of protein C,protein S, or antithrombin III, age, male sex, personal or familyhistory of deep vein thromboembolism, smoking, surgery, prolongedimmobilization, malignant neoplasm, tamoxifen treatment, raloxifenetreatment, oral contraceptive use, hormone replacement therapy, andpregnancy. Management of thrombotic risk and thrombotic events shouldfollow established guidelines and fit the clinical circumstance. Thisresult cannot predict the occurrence or recurrence of a thromboticevent.Comments:Genetic counseling is recommended to discuss the potential clinicalimplications of positive results, as well as recommendations fortesting family members.Genetic Coordinators are available for health care providers to discussresults at [phone] Details:Variant analyzed: c.*97G>A, previously referred to as [id number]/Limitations:DNA analysis of the F2 gene (NM_[id number]) was performed by PCRamplification followed by restriction enzyme analysis. The diagnosticsensitivity is >99%. Results must be combined with clinicalinformation for the most accurate interpretation. Molecular-basedtesting is highly accurate, but as in any laboratory test, diagnosticerrors may occur. False positive or false negative results may occurfor reasons that include genetic variants, blood transfusions, bonemarrow transplantation, somatic or tissue-specific mosaicism,mislabeled samples, or erroneous representation of familyrelationships.This test was developed and its performance characteristics determinedby [employer]. It has not been cleared or approved by the Food and DrugAdministration.References:Antonietta S, Michelle AK, Kelvin R, Rosalva WW, Yousuf JH; [facility] Professio (more content not included)... Nucleated red blood cell per centageOrdered By: Raymond Dias on 11-11-2024 Nucleated RBC/100 WBC (Bld) [Ratio] 0 % 0-5 [facility] Partial Thromboplast Timeon 11-11-2024 aPTT Coag (Bld) [Time] 27.2 s Normal 24.1-36.2 [facility] Comment on above: Performed By: #### L 503.6550, L506.0250, L3100.3425, L300.4310, L3410.9999, L501.2300, L501.6710, L501.5200, L300.3900, L3130.0010, L100.9950, L503.6030, L500.4050, L101.9900, L100.0100, L504.2610, L3100.7050, L503.0105, L300.8000, L3100.7075 ####[facility] [address] [place], [place], [id number] Phosphoruson 11-11-2024 Phosphate [Mass/Vol] 3.9 mg/dL Normal 2.5-4.9 [facility] Comment on above: Order Comment: UNKNO WN1N Performed By: #### L 503.6550, L506.0250, L3100.3425, L300.4310, L3410.9999, L501.2300, L501.6710, L501.5200, L300.3900, L3130.0010, L100.9950, L503.6030, L500.4050, L101.9900, L100.0100, L504.2610, L3100.7050, L503.0105, L300.8000, L3100.7075 ####[facility] [address] [place], [address] Phosphorus measurementOrdere d By: Raymond Dias on 11-11-2024 Phosphorus Level 3.9 mg/dL 2.5-4.9 [facility] Platelet countOrdered By: Ronel Dias on 11-11-2024 Platelets (Bld) [#/Vol] 268 10*3/uL 150-450 [facility] Potassium measurementOrdered By: Raymond Dias on 11-11-2024 Potassium [Moles/Vol] 3.4 mmol/L Low 3.5-5.1 [facility] Protein Fractions Immunofixa tion Jaxon [Interp]Ordered By: Raymond Dias on 11-11-2024 M-Javan (CARLENE) Not Observed g/dL Not Observed [facility] Protein S Coag Qn (PPP)Order ed By: Raymond Dias on 11-11-2024 Total Protein S 71 % 60-150 [facility] Comment on above: This test was develo ped and its performance characteristicsdetermined by [facility]. It has not been cleared orapproved by the Food and Drug Administration. Protein S Free Ag IA Qn (PPP )Ordered By: Raymond Dias on 11-11-2024 Free Protein S 85 % 61-136 [facility] Protein S actual/normal Coag (PPP) [Relative time]Ordered By: Raymond Dias on 11-11-2024 Functional Protein S 68 % 63-140 [facility] Comment on above: Protein S activity m ay be falsely increased (masking anabnormal, low result) in patients receiving direct Xainhibitor (e.g., rivaroxaban, apixaban, edoxaban) or adirect thrombin inhibitor (e.g., dabigatran) anticoagulanttreatment due to assay interference by these drugs. Prothrombin Time w/INRon INR Coag (PPP) [Relative time] 0.9 {INR} Normal [facility] Comment on above: Performed By: #### L 503.6550, L506.0250, L3100.3425, L300.4310, L3410.9999, L501.2300, L501.6710, L501.5200, L300.3900, L3130.0010, L100.9950, L503.6030, L500.4050, L101.9900, L100.0100, L504.2610, L3100.7050, L503.0105, L300.8000, L3100.7075 ####[facility] [address] [place], [address] PT Coag (PPP) [Time] 12.7 s Normal 11.7-14.9 [facility] Comment on above: Performed By: #### L 503.6550, L506.0250, L3100.3425, L300.4310, L3410.9999, L501.2300, L501.6710, L501.5200, L300.3900, L3130.0010, L100.9950, L503.6030, L500.4050, L101.9900, L100.0100, L504.2610, L3100.7050, L503.0105, L300.8000, L3100.7075 ####[facility] [address] [facility], [address] Prothrombin timeOrdered By: Raymond Dias on 11-11-2024 PT Coag (PPP) [Time] 12.7 s 11.7-14.9 [facility] RBC Auto (Bld) [#/Vol]Ordere d By: Raymond Dias on 11-11-2024 RBC (Bld) [#/Vol] 4.35 10*6/uL 4.2-5.4 [facility] Retic Panelon 11-11-2024 IM RET FRACTION 8.50 Normal 3.00-15.90 [facility] Comment on above: Performed By: #### L 503.6550, L506.0250, L3100.3425, L300.4310, L3410.9999, L501.2300, L501.6710, L501.5200, L300.3900, L3130.0010, L100.9950, L503.6030, L500.4050, L101.9900, L100.0100, L504.2610, L3100.7050, L503.0105, L300.8000, L3100.7075 ####[facility] [address] [place], [place], [id number] RET-HE 32.7 pg Normal 30-35 [facility] Comment on above: Performed By: #### L 503.6550, L506.0250, L3100.3425, L300.4310, L3410.9999, L501.2300, L501.6710, L501.5200, L300.3900, L3130.0010, L100.9950, L503.6030, L500.4050, L101.9900, L100.0100, L504.2610, L3100.7050, L503.0105, L300.8000, L3100.7075 ####[facility] [address] [place], [address] Retic Count 1.17 Normal 0.5-1.5 [facility] Comment on above: Performed By: #### L 503.6550, L506.0250, L3100.3425, L300.4310, L3410.9999, L501.2300, L501.6710, L501.5200, L300.3900, L3130.0010, L100.9950, L503.6030, L500.4050, L101.9900, L100.0100, L504.2610, L3100.7050, L503.0105, L300.8000, L3100.7075 ####[facility] [address] [place], [address] Reticulocytes Auto (Bld) [#/ Vol]Ordered By: Raymond Dias on 11-11-2024 Reticulocyte Count 1.17 % 0.5-1.5 [facility] Serum albumin/globulin ratio Ordered By: Raymond Dias on 11-11-2024 Albumin/Globulin (CARLENE) 1.6 0.7-1.7 [facility] Serum anion gap measurementO rdered By: Raymond Dias on 11-11-2024 Anion gap [Moles/Vol] 6 mmol/L 5-15 [facility] Serum globulin measurement ( mass/volume)Ordered By: Raymond Dias on 11-11-2024 Globulin (S) [Mass/Vol] 2.4 g/dL 2.2-3.9 [facility] Serum or plasma alanine neves otransferase (ALT) measurementOrdered By: Raymond Dias on 11-11-2024 ALT [Catalytic activity/Vol] 13 U/L 13-56 [facility] Serum or plasma albumin gomez urement (mass/volume)Ordered By: Raymond Dias on 11-11-2024 Albumin [Mass/Vol] 3.7 g/dL 3.2-5.0 [facility] Serum or plasma alkaline gina sphatase measurementOrdered By: Raymond Dias on 11-11-2024 ALP [Catalytic activity/Vol] 62 U/L 45-117 [facility] Serum or plasma calcium gomez urement (mass/volume)Ordered By: Raymond Dias on 11-11-2024 Calcium [Mass/Vol] 8.9 mg/dL 8.5-10.1 [facility] Serum or plasma creatinine m easurement (mass/volume)Ordered By: Raymond Dias on 11-11-2024 Creatinine [Mass/Vol] 0.83 mg/dL 0.55-1.02 [facility] Comment on above: The validity of the calculated GFR & GFRAA in patients over 70 years has not been determined. Clinical correlation is essential. Serum or plasma protein gomez urement (mass/volume)Ordered By: Raymond Dias on 11-11-2024 Protein [Mass/Vol] 6.2 g/dL 6.0-8.5 [facility] Serum or plasma urea nitroge n measurement (mass/volume)Ordered By: Raymond Dias on 11-11-2024 Urea nitrogen [Mass/Vol] 14 mg/dL 7-18 [facility] Sodium levelOrdered By: Keanu Dias on 11-11-2024 Sodium [Moles/Vol] 141 mmol/L 136-145 [facility] TIBCOrdered By: Raymond Dias on 11-11-2024 Total Iron Binding Capacity 312 ug/dL 250-450 [facility] Total proteinOrdered By: Dwight Dias on 11-11-2024 Protein [Mass/Vol] 6.3 g/dL Low 6.4-8.2 [facility] Vitamin B12on 11-11-2024 Cobalamin (Vitamin B12) [Mass/Vol] 305 pg/mL Normal 211-911 [facility] Comment on above: Performed By: #### L 503.6550, L506.0250, L3100.3425, L300.4310, L3410.9999, L501.2300, L501.6710, L501.5200, L300.3900, L3130.0010, L100.9950, L503.6030, L500.4050, L101.9900, L100.0100, L504.2610, L3100.7050, L503.0105, L300.8000, L3100.7075 ####[facility] [address] [place], [place], [id number] Vitamin B12 measurementOrder ed By: Raymond Dias on 11-11-2024 Cobalamin (Vitamin B12) [Mass/Vol] 305 pg/mL 211-911 [facility] White blood cell (WBC) count Ordered By: Raymond Dias on 11-11-2024 WBC (Bld) [#/Vol] 5.6 10*3/uL 4.4-11.0 [facility] aPTT Coag (PPP) [Time]Ordere d By: Raymond Dias on 11-11-2024 aPTT Coag (Bld) [Time] 27.2 s 24.1-36.2 [facility] Oncology Visit Reporton 10-23 Oncology Visit Report [facility] [place] [address] OFFICE VISIT Date of Service: 11/05/24 1253 MR#: [id number] Acct: [id number] Name: SUHA CALIX Rep #: [id number] : 1980 From: Raymond Dias MD Age/Sex: 44/F Location: [facility] Status: Signed HPI Subjective Date of Service 11/05/24 Chief Complaint Referred for thrombophilia evaluation. History of Present Illness 44-year-old woman was diagnosed with protein S and C deficiency while with her daughter in 1997, since then she has been on Coumadin, Xarelto and now on Eliquis 5 mg twice daily for recurrent DVT, is referred by primary physician for thrombophilia. She had hysterectomy in 2021, permanent IVC filter placement in 2010. 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 [facility] Medical History IBS (irritable bowel syndrome) Malignant melanoma H/O protein S deficiency H/O protein C deficiency Hypothyroidism GERD (gastroesophageal reflux disease) Anxiety Surgical History Iliac vein thrombosis, left H/O local excision of skin lesion H/O adenoidectomy H/O: H/O superior vena cava filter placement H/O: hysterectomy Family History Father Bleeding disorder protein C, S deficiency and Factor V leiden Heart disease Grandfather Bleeding disorder Pulmonary embolism Mother IBS (irritable bowel syndrome) Brother IBS (irritable bowel syndrome) Grandfather Heart disease quadruple bypass Social History (Reviewed 11/05/24 @ 13:11 by AILEEN Lyle household members: spouse and other details: 2 dogs housing: house current occupational status: employed 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 Smoking Status: Former smoker quit date: 10/23/15 pack-years: 23 alcohol intake: former year quit: 2017 substance use type: does not use what type of physical activity do you participate in: none seatbelt use: always do you feel safe at home: Yes ROS Constitutional Constitutional: Reports systems reviewed and no addt'l complaints, except as documented Eyes Eyes: Reports systems reviewed and no addt'l complaints, except as documented ENT HEENT: Reports systems reviewed and no addt'l complaints, except as documented Cardiovascular Cardiovascular: Reports systems reviewed and no addt'l complaints, except as documented Respiratory/Chest Respiratory/Chest: Reports systems reviewed and no addt'l complaints, except as documented Gastrointestinal Gastrointestinal: Reports systems reviewed and no addt'l complaints, except as documented Genitourinary Genitourinary: Reports systems reviewed and no addt'l complaints, except as documented Musculoskeletal Musculoskeletal: Reports systems reviewed and no addt'l complaints, except as documented Integumentary Integumentary: Reports systems reviewed and no addt'l complaints, except as documented Neurologic Neurologic: Reports systems reviewed and no addt'l complaints, except as documented Psychiatric Psychiatric: Reports systems reviewed and no addt'l complaints, except as documented Endocrine Endocrinology: Reports systems reviewed and no addt'l complaints, except as documented Hematologic/Lymphatic Hematologic/Lymphatic: Reports systems reviewed and no addt'l complaints, except as documented Allergic/Immunologic Allergic/Immunologic: Reports systems reviewed and no addt'l complaints, except as documented Intake Vital Signs 10/07/24 08:01 11/05/24 13:11 11/05/24 13:13 11/05/24 13:13 Height 5 ft 4 in 5 ft 4 in 5 ft 4 in 5 ft 4 in Weight: 54.091 kg 54.091 kg 54.091 kg BMI 20.5 20.5 20.5 BP 122/62 H 112/78 Blood Pressure Location Lt brachial Lt brachial Position Sitting Sitting Respiration 16 18 Pulse 52 L 94 Pulse Source Palpation Monitor Temp 97.1 F L 99.1 F Temperature Source Temporal Artery Pulse Oximetry (%) 100 Oxygen Delivery Method room air Intake Is patient in pain?: Yes (head and neck pain) Pain scale (1-10): 6 Allergies Penicillins Allergy (Severe, Verified 11/05/24 12:53) Hives ketorolac (From Toradol) Allergy (Intermediate, Verified 11/05/24 12:53) Swelling latex Allergy (Verified 11/05/24 12:53) Hives Medications ???Medication ???Instructions ???Recorded ???Confirmed ???Type apixaban 5 mg tablet (Eliquis) 5 mg PO BID 06/02/22 10/07/24 History pantoprazole 40 mg tablet,delayed 40 mg PO DAILY 06/02/22 11/05/24 History release polyethylene glycol 3350 17 4 g PO DAILY 06/02/22 11/05/24 History gram/dose oral powder (Miralax) topiramate 100 mg tablet 100 mg PO BID 06/02/22 11/05/24 History amitriptyline 10 mg tablet 20 mg PO (more content not included)... [facility] 10-29-2024 [facility] Telephone ([facility]) SUHA CALIX ([id number]) 1980 F T Date Time Provider Department 10/29/24 DWAYNE MCDANIEL [facility] During your visit today, we recorded the following information about you: Dwayne Mcdaniel MD 10/29/2024 1:16 PM Signed please let patient know she has low TSH. I see patient is now following with Dr. Ramos and labs have been obtained by them if patient is now with a different PCP please have labs sent over to new PCP. Thank you Suha Gordon MA 10/29/2024 1:44 PM Signed [facility] and sent to new PCP Allergies As of Date: 10/29/2024 Noted Allergy Reaction LATEX 03/16/2021 2 - Rash PENICILLINS 03/16/2021 10 - Anaphylaxis TAPE (ADHESIVE TAPE-SILICONES) 06/15/2022 2 - Rash TORADOL (KETOROLAC) 03/16/2021 7 - Swelling Comments: Tongue swelling Date Reviewed: 09/23/2024 Reviewed by: Chilango Wasihngton LPN - Fully Assessed Prescriptions as of 10/29/2024 - AIMOVIG AUTOINJECTOR 70 mg/mL auto-injector Inject 70 mg subcutaneously once every month. - levothyroxine (SYNTHROID) 112 mcg tablet Take 112 mcg by mouth every morning. Take On an Empty Stomach - topiramate (TOPAMAX) 100 mg tablet TAKE 1 TABLET TWICE A DAY - pantoprazole DR (PROTONIX) 40 mg tablet TAKE 1 TABLET DAILY - amitriptyline (ELAVIL) 25 mg tablet Take 1 tablet by mouth daily at bedtime. - tiZANidine (ZANAFLEX) 4 mg tablet Take 0.5-1 tablets by mouth three times a day as needed (muscle spasms). - eletriptan (RELPAX) 40 mg tablet At migraine onset. may repeat in 2 hours if necessary - gabapentin (NEURONTIN) 100 mg capsule Take 2 capsules by mouth daily at bedtime for 30 days. - apixaban (ELIQUIS) 5 mg tab(s) Take 1 tablet by mouth two times a day. - ergocalciferol 50,000 unit capsule (VITAMIN D2, DRISDOL) Take 1 capsule by mouth one time a week. Use as directed. - dicyclomine (BENTYL) 20 mg tablet TAKE ONE TABLET BY MOUTH THREE TIMES A DAY NEEDED FOR ABDOMINAL PAIN - polyethylene glycol 3350 (MIRALAX, GLYCOLAX) 17 gram/dose powder Take 17 g by mouth once daily. Problem List As Of Date 10/29/2024 Noted Resolved H/O protein C deficiency [Z86.2] H/O protein S deficiency [Z86.2] Migraine [G43.909] Malignant melanoma (HCC) [C43.9] History of DVT (deep vein thrombosis) [Z86.718] 10/04/2021 Hypothyroidism [E03.9] 04/26/2021 Neck pain [M54.2] 06/14/2022 Right leg pain [M79.604] 06/14/2022 Left leg pain [M79.605] 06/14/2022 Myofascial pain syndrome [M79.18] 06/14/2022 UTI symptoms [R39.9] 08/02/2022 Abdominal pain [R10.9] 10/20/2022 Chronic pain syndrome [G89.4] 12/04/2023 Sacroiliitis (HCC) [M46.1] 12/04/2023 Acute right-sided low back pain with right-side*06/14/2024 Encounter for screening mammogram for breast ca*06/14/2024 Adjustment disorder with mixed anxiety and depr*06/14/2024 Headaches [R51.9] 06/14/2024 Hypothyroidism, unspecified [E03.9] 11/03/2021 Hair thinning [L65.9] 07/16/2024 Brittle nails [L60.3] 07/16/2024 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 [Z79.52] 07/16/2024 Encounter Status:Closed by DWAYNE MCDANIEL on 10/29/24 [facility] CBC W Auto Differential pane l (Bld)on 10-26-2024 Basophils (Bld) [#/Vol] 10*3/uL Normal <0.11 [facility] Comment on above: Order Comment: Speci men Type: BLOOD SPECIMENOrdering Facility: [facility] Address: [address], [place] [address] Performed By: #### 5 7021-8 ####[facility] CHARLESTON LABIA [id number] [place] [address] [place] Basophils/100 WBC (Bld) 0.2 % Normal [facility] Comment on above: Order Comment: Speci men Type: BLOOD SPECIMENOrdering Facility: [facility] Address: [address], [place] [address] Performed By: #### 5 7021-8 ####[facility]ENTERJessica CHARLESTON LABCLIA [id number] [place] [address] [place] Differential cell count method Nom (Bld) Auto Normal [facility] Comment on above: Order Comment: Speci men Type: BLOOD SPECIMENOrdering Facility: [facility] Address: [address], [place] [address] Performed By: #### 5 7021-8 ####CURTISY CHARLESTON LABCLIA [id number] [place] [address] [facility] [place] Eosinophils (Bld) [#/Vol] 0.23 10*3/uL Normal <0.46 [facility] Comment on above: Order Comment: Speci men Type: BLOOD SPECIMENOrdering Facility: [facility] Address: [address], [place] [address] Performed By: #### 5 7021-8 ####YONATAN CHARLESTON LABCLIA [id number] [address] OF [place] Eosinophils/100 WBC (Bld) 3.7 % Normal [facility] Comment on above: Order Comment: Speci men Type: BLOOD SPECIMENOrdering Facility: [facility] Address: [address], [place] [address] Performed By: #### 5 7021-8 ####YONATAN CHARLESTON LABCLIA [id number] [address] OF [place] Erythrocyte distribution width (RBC) [Ratio] 12.6 % Normal 11.5-15.0 [facility] Comment on above: Order Comment: Speci men Type: BLOOD SPECIMENOrdering Facility: [facility] Address: [address], [place] [address] Performed By: #### 5 7021-8 ####CURTISY CHARLESTON LABCLIA [id number] [address] OF [place] Hematocrit (Bld) [Volume fraction] 39.9 % Normal 36.0-46.0 [facility] Comment on above: Order Comment: Speci men Type: BLOOD SPECIMENOrdering Facility: [facility] Address: [address], [place] [address] Performed By: #### 5 7021-8 ####[facility] CHARLE[place]ON LABCLIA [id number] [place] [address] [place] Hemoglobin (Bld) [Mass/Vol] 13.0 g/dL Normal 11.5-15.5 [facility] Comment on above: Order Comment: Speci men Type: BLOOD SPECIMENOrdering Facility: [facility] Address: [address], [place] [address] Performed By: #### 5 7021-8 ####[facility] CHARLE[place]ON LABCLIA [id number] [place] [address] [place] Immature granulocytes (Bld) [#/Vol] 10*3/uL Normal <0.10 [facility] Comment on above: Order Comment: Speci men Type: BLOOD SPECIMENOrdering Facility: [facility] Address: [address], [place] [address] Performed By: #### 5 7021-8 ####[facility]ENTERJessica CHARLESTON LABCLIA [id number] [address] [place] Immature granulocytes/100 WBC (Bld) 0.2 % Normal [facility] Comment on above: Order Comment: Speci men Type: BLOOD SPECIMENOrdering Facility: [facility] Address: [address], [place] [address] Performed By: #### 5 7021-8 ####[facility]ENTERJessica CHARLESTON LABCLIA [id number] [place] [address] [place] Lymphocytes (Bld) [#/Vol] 1.46 10*3/uL Normal 1.00-4.00 [facility] Comment on above: Order Comment: Speci men Type: BLOOD SPECIMENOrdering Facility: [facility] Address: [address], [place] [address] Performed By: #### 5 7021-8 ####CURTISY CHARLESTON LABCLIA [id number] [place] [address] [place] Lymphocytes/100 WBC (Bld) 23.2 % Normal [facility] Comment on above: Order Comment: Speci men Type: BLOOD SPECIMENOrdering Facility: [facility] Address: [address], [place] [address] Performed By: #### 5 7021-8 ####YONATAN CHARLESTON LABCLIA [id number] [address] MCH (RBC) [Entitic mass] 30.4 pg Normal 26.0-34.0 [facility] Comment on above: Order Comment: Speci men Type: BLOOD SPECIMENOrdering Facility: [facility] Address: [address], [place] [address] Performed By: #### 5 7021-8 ####YONATAN CHARLESTON LABIA [id number] [address] MCHC (RBC) [Mass/Vol] 32.6 g/dL Normal 30.5-36.0 [facility] Comment on above: Order Comment: Speci men Type: BLOOD SPECIMENOrdering Facility: [facility] Address: [address], [place] [address] Performed By: #### 5 7021-8 ####YONATAN CHARLESTON LABIA [id number] [address] MCV (RBC) [Entitic vol] 93.4 fL Normal 80.0-100.0 [facility] Comment on above: Order Comment: Speci men Type: BLOOD SPECIMENOrdering Facility: [facility] Address: [address], [place] [address] Performed By: #### 5 7021-8 ####YONATAN CHARLESTON LABCLIA [id number] [address] Monocytes (Bld) [#/Vol] 0.37 10*3/uL Normal <0.87 [facility] Comment on above: Order Comment: Speci men Type: BLOOD SPECIMENOrdering Facility: [facility] Address: [address], [place] [address] Performed By: #### 5 7021-8 ####YONATAN CHARLESTON LABCLIA [id number] [place] [address] [place] Monocytes/100 WBC (Bld) 5.9 % Normal [facility] Comment on above: Order Comment: Speci men Type: BLOOD SPECIMENOrdering Facility: [facility] Address: [address] [place] [address] Performed By: #### 5 7021-8 ####[facility]Jess[facility] CHARLESTON LABCLIA [id number] [place] [address] [place] Neutrophils (Bld) [#/Vol] 4.20 10*3/uL Normal 1.45-7.50 [facility] Comment on above: Order Comment: Speci men Type: BLOOD SPECIMENOrdering Facility: [facility] Address: [address] [place] [address] Performed By: #### 5 7021-8 ####[facility]ENTERJessica CHARLESTON LABCLIA [id number] [address] STATES [place] Neutrophils/100 WBC (Bld) 66.8 % Normal [facility] Comment on above: Order Comment: Speci men Type: BLOOD SPECIMENOrdering Facility: [facility] Address: [address], [place] [address] Performed By: #### 5 7021-8 ####[facility]ENTERJessica CHARLESTON LABCLIA [id number] [place] [address] [place] Platelet mean volume (Bld) [Entitic vol] 9.5 fL Normal 9.0-12.7 [facility] Comment on above: Order Comment: Speci men Type: BLOOD SPECIMENOrdering Facility: [facility] Address: [address], [place] [address] Performed By: #### 5 7021-8 ####[facility]ENTERJessica CHARLESTON LABCLIA [id number] [place] [id number] [place] Platelets (Bld) [#/Vol] 290 10*3/uL Normal 150-400 [facility] Comment on above: Order Comment: Speci men Type: BLOOD SPECIMENOrdering Facility: [facility] Address: [address], [place] [address] Performed By: #### 5 7021-8 ####[facility]ENTERJessica CHARLESTON LABCLIA [id number] [address] RBC (Bld) [#/Vol] 4.27 10*6/uL Normal 3.90-5.20 [facility] Comment on above: Order Comment: Speci men Type: BLOOD SPECIMENOrdering Facility: [facility] Address: [address], [place] [address] Performed By: #### 5 7021-8 ####[facility]ENTERJessica CHARLESTON LABCLIA [id number] [address] WBC (Bld) [#/Vol] 6.28 10*3/uL Normal 3.70-11.00 [facility] Comment on above: Order Comment: Speci men Type: BLOOD SPECIMENOrdering Facility: [facility] Address: [address], [place] [address] Performed By: #### 5 7021-8 ####[facility]ENTERJessica CHARLESTON LABCLIA [id number] [address] Comprehensive metabolic 2000 panelon 10-26-2024 Albumin [Mass/Vol] 3.8 g/dL Normal 3.2-5.0 [facility] Comment on above: Order Comment: Speci men Type: BLOOD SPECIMENOrdering Facility: [facility] Address: [address], [place] [address] Performed By: #### 2 132-9, 31222-3, 3016-3, 23755-6 ####[facility] LABORATORYCLIA [id number] [address]#### 22022-2 ####[facility] LABORATORYCLIA [id number] [address] LABCLIA [id number] [address] [place] ALP [Catalytic activity/Vol] 54 U/L Normal 45-117 [facility] Comment on above: Order Comment: Speci men Type: BLOOD SPECIMENOrdering Facility: [facility] Address: [address], [place] [address] Performed By: #### 2 132-9, 24455-0, 3016-3, 76483-3 ####[facility] LABORATORYCLIA [id number] [address]#### 80440-3 ####[facility] LABORATORYCLIA [id number] [address] LABIA [id number] [address] ALT [Catalytic activity/Vol] 11 U/L Low 13-61 [facility] Comment on above: Order Comment: Speci men Type: BLOOD SPECIMENOrdering Facility: [facility] Address: [address], [place] [address] Result Comment: Resu lts may be falsely depressed after the administration of Sulfasalazine and/or Sulfapyridine. Performed By: #### 2 132-9, 82936-3, 3016-3, 87567-0 ####[facility] LABORATORYCLIA [id number] [address]#### 65569-4 ####[facility] LABORATORYCLIA [id number] [address] [facility] [id number] [address] Anion gap [Moles/Vol] 10 mmol/L Normal 5-16 [facility] Comment on above: Order Comment: Speci men Type: BLOOD SPECIMENOrdering Facility: [facility] Address: [address], [place] [address] Performed By: #### 2 132-9, 58489-6, 3016-3, 46888-2 ####[facility] LABORATORYCLIA [id number] [address]#### 92885-9 ####[facility] LABORATORYCLIA [id number] [address] LABIA [id number] [address] AST [Catalytic activity/Vol] 15 U/L Normal 8-34 [facility] Comment on above: Order Comment: Speci men Type: BLOOD SPECIMENOrdering Facility: [facility] Address: [address], [place] [address] Result Comment: Resu lts may be falsely depressed after the administration of Sulfasalazine and/or Sulfapyridine. Performed By: #### 2 132-9, 71905-5, 3015-3, 92452-3 ####[facility] LABORATORYCLIA [id number] [address]#### 96002-5 ####[facility] LABORATORYCLIA [id number] [address] LABIA [id number] [address] [place] Bilirubin [Mass/Vol] 0.4 mg/dL Normal 0.2-1.0 [facility] Comment on above: Order Comment: Speci men Type: BLOOD SPECIMENOrdering Facility: [facility] Address: [address], [place] [address] Performed By: #### 2 132-9, 04335-2, 3016-3, 46308-2 ####[facility] LABORATORYCLIA [id number] [address]#### 76546-1 ####[facility] LABORATORYCLIA [id number] [address] LABCLIA [id number] [place] [address] [place] Calcium [Mass/Vol] 9.4 mg/dL Normal 8.5-10.5 [facility] Comment on above: Order Comment: Speci men Type: BLOOD SPECIMENOrdering Facility: [facility] Address: [address], [place] [address] Performed By: #### 2 132-9, 28763-4, 3016-3, 46839-3 ####[facility] LABORATORYCLIA [id number] [address] [place]#### 38288-2 ####[facility] LABORATORYCLIA [id number] [address] LABIA [id number] [place] [address] [place] Chloride [Moles/Vol] 108 mmol/L High 98-107 [facility] Comment on above: Order Comment: Speci men Type: BLOOD SPECIMENOrdering Facility: [facility] Address: [address], [place] [address] Performed By: #### 2 132-9, 30254-8, 3016-3, 31872-1 ####[facility] LABORATORYCLIA [id number] [address] [place]#### 68927-6 ####[facility] LABORATORYCLIA [id number] [place] [id number] [facility] LABIA [id number] [place] [address] [place] CO2 [Moles/Vol] 25 mmol/L Normal 21-32 [facility] Comment on above: Order Comment: Speci men Type: BLOOD SPECIMENOrdering Facility: [facility] Address: [address], [place] [address] Performed By: #### 2 132-9, 47349-9, 3016-3, 64607-8 ####[facility] LABORATORYCLIA [id number] [address]#### 56911-2 ####[facility] LABORATORYCLIA [id number] [address] LABIA [id number] [address] Creatinine [Mass/Vol] 0.70 mg/dL Normal 0.51-0.95 [facility] Comment on above: Order Comment: Speci men Type: BLOOD SPECIMENOrdering Facility: [facility] Address: [address], [place] [address] Result Comment: Nasreen ents receiving either N-Acetylcysteine (NAC) or Metamizole prior to venipuncture, may have falsely depressed results. Performed By: #### 2 132-9, 66716-0, 3016-3, 73807-7 ####[facility] LABORATORYCLIA [id number] [address]#### 59415-4 ####[facility] LABORATORYCLIA [id number] [address] [id number] [address] Creatinine and Glomerular filtration rate.predicted panel (S/P/Bld) 109 mL/min/1.73m??? Normal >=60 [facility] Comment on above: Order Comment: Speci men Type: BLOOD SPECIMENOrdering Facility: [facility] Address: [address], [place] [address] Result Comment: Dea mated Glomerular Filtration Rate (eGFR) is calculated using the 2020 CKD-EPI creatinine equation. This equation utilizes serum creatinine, sex, and age as parameters. The creatinine assay has traceable calibration to isotope dilution-mass spectrometry. Refer to KDIGO guidelines for clinical interpretation. In patients with unstable renal function, e.g. those with acute kidney injury, the eGFR may not accurately reflect actual GFR. Performed By: #### 2 132-9, 15362-3, 3016-3, 43012-0 ####[facility] LABORATORYCLIA [id number] [address]#### 35374-4 ####[facility] LABORATORYCLIA [id number] [address] LABIA [id number] [address] Glucose [Mass/Vol] 87 mg/dL Normal 70-100 [facility] Comment on above: Order Comment: Speci men Type: BLOOD SPECIMENOrdering Facility: [facility] Address: [address] [place] [address] [address], [place] [address] Result Comment: The [place] Diabetes Association (ADA) provides guidance for cutoff values for fasting glucose and random glucose. The ADA defines fasting as no caloric intake for at least 8 hours. Fasting plasma glucose results between 100 to 125 mg/dL indicate increased risk for diabetes (prediabetes). Fasting plasma glucose results greater than or equal to 126 mg/dL meet the criteria for diagnosis of diabetes. In the absence of unequivocal hyperglycemia, results should be confirmed by repeat testing. In a patient with classic symptoms of hyperglycemia or hyperglycemic crisis, random plasma glucose results greater than or equal to 200 mg/dL meet the criteria for diagnosis of diabetes. Reference: Standards of Medical Care in Diabetes 2016, [place] [employer] Association. Diabetes Care. 2016.39(Suppl 1). Results may be falsely elevated after the administration of Sulfapyridine. Results may be falsely depressed after the administration of Sulfasalazine. Performed By: #### 2 132-9, 35194-3, 3016-3, 60794-9 ####[facility] LABORATORYCLIA [id number] [address]#### 31801-2 ####[facility] LABORATORYCLIA [id number] [place] [id number] [facility] LABIA [id number] [address] STATES OF [facility] Potassium [Moles/Vol] 3.9 mmol/L Normal 3.5-5.1 [facility] Comment on above: Order Comment: Speci men Type: BLOOD SPECIMENOrdering Facility: [facility] Address: [address], [place] [address] Performed By: #### 2 132-9, 55695-8, 3016-3, 14097-4 ####[facility] LABORATORYCLIA [id number] [address]#### 04479-3 ####[facility] LABORATORYCLIA [id number] [address] LABIA [id number] [address] [place] Protein [Mass/Vol] 6.3 g/dL Normal 6.0-8.5 [facility] Comment on above: Order Comment: Speci men Type: BLOOD SPECIMENOrdering Facility: [facility] Address: [facility] [address], [place] [address] Performed By: #### 2 132-9, 19239-5, 3, 94843-0 ####[facility] LABORATORYCLIA [id number] [address]#### 12952-4 ####[facility] LABORATORYCLIA [id number] [address] LABIA [id number] [place] [address] [place] Sodium [Moles/Vol] 143 mmol/L Normal 136-145 [facility] Comment on above: Order Comment: Speci men Type: BLOOD SPECIMENOrdering Facility: [facility] Address: [address], [place] [address] Performed By: #### 2 132-9, 41371-6, 6-3, 44148-0 ####[facility] LABORATORYCLIA [id number] [address] [place]#### 32575-1 ####[facility] LABORATORYCLIA [id number] [address] LABCLIA [id number] [place] [address] [place] Urea nitrogen [Mass/Vol] 11 mg/dL Normal 05-17 [facility] Comment on above: Order Comment: Speci men Type: BLOOD SPECIMENOrdering Facility: [facility] Address: [facility] [address], [place] [address] Performed By: #### 2 132-9, 39779-1, 3016-3, 37367-3 ####[facility] LABORATORYCLIA [id number] [address] [place]#### 04676-5 ####[facility] LABORATORYCLIA [id number] [address] LABIA [id number] [place] [address] [place] Folate SerPl-mCncon 10-26-19 25 Folate [Mass/Vol] 12.8 ng/mL Normal >3.0 [facility] Comment on above: Order Comment: Speci men Type: BLOOD SPECIMENOrdering Facility: [facility] Address: [address], [place] [address] Performed By: #### 2 284-8 ####[facility] LABORATORYCLIA [id number] [place] [address] [place] HbA1c (Bld)on 10-26-2024 Average glucose Estimated from glycated hemoglobin (Bld) [Mass/Vol] 97 mg/dL Normal [facility] Comment on above: Order Comment: Speci men Type: BLOOD SPECIMEN Ordering Facility: [facility] Address: [address] [place] [address] Result Comment: eAG: (Estimated average glucose) is a calculated value from HgbA1c and is inventory representative of the average blood glucose level in the last 2-3 month period. Performed By: #### 4 537-7 #### [facility] CLIA [id number] [address] [place] [address] [place] HbA1c (Bld) [Mass fraction] 5.0 % Normal 4.3-5.6 [facility] Comment on above: Order Comment: Alejandro mcmanus Type: BLOOD SPECIMEN Ordering Facility: [facility] Address: [address] [place] [address] Result Comment: [place] Diabetes Association guidelines indicate that patients with HgbA1c in the range 5.7-6.4% are at increased risk for development of diabetes, and intervention by lifestyle modification may be beneficial. HgbA1c greater or equal to 6.5% is considered diagnostic of diabetes. Performed By: #### 4 537-7 #### [facility] CLIA [id number] [address] [place] [address] Iron and Iron binding capaci ty panelon 10-26-2024 Iron [Mass/Vol] 68 ug/dL Normal 50-170 [facility] Comment on above: Order Comment: Alejandro mcmanus Type: BLOOD SPECIMEN Ordering Facility: [facility] Address: [address] [place] [address] Result Comment: Nasreen ents treated with metal-binding drugs (e.g.deferoxamine) may have depressed iron values, as chelated iron may not properly react in the Siemens iron assay. Performed By: #### 4 537-7 #### [facility] CLIA [id number] [address] [place] [address] [place] Iron binding capacity [Mass/Vol] 332 ug/dL Normal 221-481 [facility] Comment on above: Order Comment: Alejandro mcmanus Type: BLOOD SPECIMEN Ordering Facility: [facility] Address: [address] [place] [address] Performed By: #### 4 537-7 #### [facility] CLIA [id number] [address] [place] [address] [place] Iron/TIBC [Molar ratio] 20.5 % Low 22.0-44.0 [facility] Comment on above: Order Comment: Speci men Type: BLOOD SPECIMEN Ordering Facility: [facility] Address: [address] [place] [id number] Performed By: #### 4 537-7 #### [facility] CLIA [id number] [address] [place] [address] [facility] Lipid 1996 panelon 5 Cholesterol [Mass/Vol] 235 mg/dL High 0-199 [facility] Comment on above: Order Comment: Speci men Type: BLOOD SPECIMENOrdering Facility: [facility] Address: [address], [place] [address] Result Comment: <200 mg/dL, Desirable 200-239 mg/dL, Borderline high >239 mg/dL, High Performed By: #### 2 132-9, 44261-6, 3016-3, 74494-3 ####[facility] LABORATORYCLIA [id number] [address]#### [address]-8 ####[facility] LABORATORYCLIA [id number] [address] LABCLIA [id number] [address] Cholesterol in HDL [Mass/Vol] 60 mg/dL Normal >40 [facility] Comment on above: Order Comment: Speci men Type: BLOOD SPECIMENOrdering Facility: [facility] Address: [address], [place] [address] Result Comment: 40-5 9 mg/dL, Acceptable >59 mg/dL, High: Negative risk factor for coronary heart disease <40 mg/dL, Low: Positive risk factor for coronary heart disease Performed By: #### 2 132-9, 74932-3, 3016-3, 56801-7 ####[facility] LABORATORYCLIA [id number] [address]#### [address]-5 ####[facility] LABORATORYCLIA [id number] [address] LABIA [id number] [address] Cholesterol in LDL [Mass/Vol] 157 mg/dL High 0-129 [facility] Comment on above: Order Comment: Speci men Type: BLOOD SPECIMENOrdering Facility: [facility] Address: [address], [place] [address] Result Comment: <100 mg/dL, Optimal 100-129 mg/dL, Near optimal/above optimal 130-159 mg/dL, Borderline high 160-189 mg/dL, High >189 mg/dL, Very high Secondary prevention optimal LDL Cholesterol levels are recommended to be < 70 mg/dL Performed By: #### 2 132-9, 27726-2, 3016-3, 35112-7 ####[facility] LABORATORYCLIA [id number] [address]#### [address]24[address]-9 ####[facility] LABORATORYCLIA [id number] [address] LABIA [id number] [address] Cholesterol in LDL/Cholesterol in HDL [Mass ratio] 2.62 {ratio} High <2.54 [facility] Comment on above: Order Comment: Speci men Type: BLOOD SPECIMENOrdering Facility: [facility] Address: [address], [place] [address] Result Comment: Refe rence: 1. National Cholesterol Education Program ATP III Guideline At-A-Glance Quick Desk Reference: National Heart, Lung, and Blood [place]. National Institutes of Health. 2001: NIH Publication No. 01-3305. 2. An International Atherosclerosis Society position paper: global recommendations for the management of dyslipidemia: executive summary, Atherosclerosis. 2014: 232(2):410-413. Performed By: #### 2 132-9, 19796-4, 3016-3, 29890-5 ####[facility] LABORATORYCLIA [id number] [address]#### [address]-9 ####[facility] LABORATORYCLIA [id number] [address] [facility] [id number] [address] Cholesterol in VLDL [Mass/Vol] 18 mg/dL Normal <30 [facility] Comment on above: Order Comment: Speci men Type: BLOOD SPECIMENOrdering Facility: [facility] Address: [facility] [address], [place] [address] Performed By: #### 2 132-9, 97383-1, 3016-3, 62289-0 ####[facility] LABORATORYCLIA [id number] [address]#### [address]6629-1 ####[facility] LABORATORYCLIA [id number] [address] LABIA [id number] [address] Cholesterol non HDL [Mass/Vol] 175 mg/dL High <130 [facility] Comment on above: Order Comment: Speci men Type: BLOOD SPECIMENOrdering Facility: [facility] Address: [facility] [address], [place] [address] Result Comment: <130 mg/dL, Optimal 130-159 mg/dL, Near optimal/above optimal 160-189 mg/dL, Borderline high 190-219 mg/dL, High >219 mg/dL, Very high Secondary prevention optimal non HDL Cholesterol levels are recommended to be <100 mg/dL Performed By: #### 2 132-9, 97243-1, 6-3, 06399-6 ####[facility] LABORATORYCLIA [id number] [address]#### [address]155-4 ####[facility] LABORATORYCLIA [id number] [place] [id number] [facility] [id number] [address] OF [place] Cholesterol.total/Cho lesterol in HDL [Mass ratio] 3.92 {ratio} Normal <5.10 [facility] Comment on above: Order Comment: Speci men Type: BLOOD SPECIMENOrdering Facility: [facility] Address: [address], [place] [id number] Performed By: #### 2 132-9, 89820-4, 3016-3, 23121-6 ####[facility] LABORATORYCLIA [id number] [address] OF [place]#### [address]-8 ####[facility] LABORATORYCLIA [id number] [place] [id number] [facility] LABIA [id number] [address] FASTING TIME 11.5 hrs Normal [facility] Comment on above: Order Comment: Speci men Type: BLOOD SPECIMENOrdering Facility: [facility] Address: [address], [place] [address] Performed By: #### 2 132-9, 56524-1, 6-3, 51343-2 ####[facility] LABORATORYCLIA [id number] [address] OF [facility]#### 20957-5 ####[facility] LABORATORYCLIA [id number] [place] [address] [facility] LABIA [id number] [address] STATES [place] Triglyceride [Mass/Vol] 89 mg/dL Normal 30-149 [facility] Comment on above: Order Comment: Speci men Type: BLOOD SPECIMENOrdering Facility: [facility] Address: [address], [place] [id number] Result Comment: <150 mg/dL, Normal 150-199 mg/dL, Borderline high 200-499 mg/dL, High >499 mg/dL, Very high Patients receiving either N-Acetylcysteine (NAC) or Metamizole prior to venipuncture, may have falsely depressed results. Performed By: #### 2 132-9, 53457-8, 3016-3, 08151-2 ####[facility] LABORATORYCLIA [id number] [address] STATES [place]#### [address]-5 ####[facility] LABORATORYCLIA [id number] [place] [address] [place] [facility] LABCLIA [id number] [place] [address] [place] Methylmalonate SerPl-sCncon 10-26-2024 Methylmalonate [Moles/Vol] 0.65 umol/L High <=0.40 [facility] Comment on above: Order Comment: Alejandro mcmanus Type: BLOOD SPECIMEN Ordering Facility: [facility] Address: [address] [place] [address] Result Comment: This test was developed, and its performance characteristics determined by the [facility] Department of Pathology and Laboratory Medicine. It has not been cleared or approved by the FDA. The [facility] Department of Pathology and Laboratory Medicine is regulated under CLIA as qualified to perform high-complexity testing. This test is used for clinical purposes. It should not be regarded as investigational or for research. Performed By: #### 4 537-7 #### [facility] LABORATORY CLIA [id number] [address] [place] [address] [place] TSH SerPl-aCncon 10-26-2024 TSH Qn 0.185 m[IU]/L Low 0.358-3.74 0 [facility] Comment on above: Order Comment: Alejandro mcmanus Type: BLOOD SPECIMEN Ordering Facility: [facility] Address: [address] [place] [address] Result Comment: 3rd generation ultra sensitive TSH. Performed By: #### 4 537-7 #### [facility] LABORATORY CLIA [id number] [address] [place] [address] [place] Vit B12 SerPl-mCncon 025 Cobalamin (Vitamin B12) [Mass/Vol] 333 pg/mL Normal 193-986 [facility] Comment on above: Order Comment: Speci men Type: BLOOD SPECIMENOrdering Facility: [facility] [place] Address: [address] [place] [address] [address], [place] [address] Performed By: #### 2 132-9, 63619-9, 3016-3, 30203-3 ####[facility] LABORATORYCLIA [id number] [address]#### [address]13-4 ####[facility] LABORATORYCLIA [id number] [place] [address] [facility] LABCLIA [id number] [address] Internal Medicine Office [facility] 10-03-2024 Internal Medicine Office Visit [facility] [address] [place] [address] [place] [address] OFFICE VISIT Date of Service: 10/07/24 MR#: [id number] Acct: [id number] Name: SUHA CALIX Rep #: [id number] : 1980 Provider: Dr. 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 Accompanied by: Self Is patient in pain?: No Allergies Penicillins Allergy (Severe, Verified 10/07/24 07:53) Hives ketorolac (From Toradol) Allergy (Intermediate, Verified 10/07/24 07:53) Swelling latex Allergy (Verified 10/07/24 07:53) Hives Medications ???Medication ???Instructions ???Recorded ???Confirmed ???Type apixaban 5 mg tablet (Eliquis) 5 mg PO BID 06/02/22 10/07/24 History ibuprofen 600 mg tablet 600 mg PO TID 06/02/22 10/07/24 History levothyroxine 112 mcg capsule 112 mcg PO DAILY 06/02/22 10/07/24 History pantoprazole 40 mg tablet,delayed 40 mg PO DAILY 06/02/22 10/07/24 History release polyethylene glycol 3350 17 4 g PO DAILY 06/02/22 10/07/24 History gram/dose oral powder (Miralax) tizanidine 4 mg tablet 4 mg PO QHS 06/02/22 10/07/24 History topiramate 100 mg tablet 100 mg PO BID 06/02/22 10/07/24 History amitriptyline 10 mg tablet 20 mg PO QHS 07/05/24 10/07/24 History aspirin 81 mg tablet,delayed 81 mg PO QDAY 07/05/24 10/07/24 History release (Adult Low Dose Aspirin) dicyclomine 20 mg tablet 20 mg PO TID 10/07/24 10/07/24 History eletriptan 20 mg tablet See Rx Instructions PO .COMPLEX 10/07/24 10/07/24 History gabapentin 100 mg capsule 100 mg PO QHS 10/07/24 10/07/24 History ondansetron HCl 4 mg tablet 4 mg PO Q6H 10/07/24 10/07/24 History PFSH Medical History (Updated 10/07/24 @ 16:[address] Ivone Palm MD) IBS (irritable bowel syndrome) Malignant melanoma H/O protein S deficiency H/O protein C deficiency Hypothyroidism GERD (gastroesophageal reflux disease) Anxiety Surgical History H/O local excision of skin lesion H/O adenoidectomy H/O: H/O superior vena cava filter placement H/O: hysterectomy Family History (Updated 10/07/24 @ 08:[address] Ivone Palm MD) Father Bleeding disorder protein C, S deficiency and Factor V leiden Heart disease Grandfather Bleeding disorder Pulmonary embolism Mother IBS (irritable bowel syndrome) Brother IBS (irritable bowel syndrome) Social History (Updated 10/07/24 @ 08:[address] 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 She was seeing Dr. Thompson and last saw them about a month ago. She reports she had recent blood work done and is due for a mammogram, but reports she has the order already. She isn't due for any immunizations. She doesn't smoke and does need refills. She reports she is eating healthy and staying active. The patient has been on thyroid medications for about 3 years. She takes her synthroid first thing in the morning before anything else. The patient has a long history of migraines which have been going on for 20 years. She reports they were controlled until the last year. Since then, she gets headaches every day. She reports the headaches are throughout her head which are throbbing. She takes topamax and a PRN triptan. She also recently started imovig injections. She doesn't feel they have been effective, however. She feels that her migraines are triggered by some ongoing sinus problems. She does follow with neurology. She had a CT cervical spine, brain and sinuses recently which were all normal. She rates her headache 6/10 currently. She took two eletriptans last night. She reports she has had problems with her sinuses. She reports she gets sinus infections every month. She reports she has sinus pain and pressure, ear pressure. She reports she just finished a course of doxycycline and feels like her symptoms are getting worse. She has seen ENT and had imaging done which was normal. She is (more content not included)... Normal [facility] CNOVon 09-23-2024 CNOV Office Visit (UCMMAS ) SUHA CALIX ([id number]) 1980 F [facility] Date Time Provider Department 09/23/24 9:40 AM VETO LINARES [facility] During your visit today, we recorded the following information about you: Temperature Pulse Respiration Blood pressure 98.3 degrees 77/minute 18/minute 99/74 Weight 54.4 kg Veto Linares DO 09/23/2024 11:17 AM Signed Suha Calix is a 44 year old FEMALE who presents with Cough (Cough, chest congestion, sore throat, bilateral ear pain and states yeast like rash under breasts x 1 week ) HPI PAST MEDICAL HISTORY Diagnosis Date Anxiety and depression GERD (gastroesophageal reflux disease) H/O protein C deficiency H/O protein S deficiency History of DVT (deep vein thrombosis) 10/04/2021 Hypothyroid Malignant melanoma (HCC) Migraines Other specified hypothyroidism 10/04/2021 TMJ (temporomandibular joint disorder) ACTIVE PROBLEM LIST H/O Protein C Deficiency H/O Protein S Deficiency Migraine Malignant Melanoma (Hcc) History of Dvt (Deep Vein Thrombosis) Hypothyroidism Neck Pain Right Leg Pain Left Leg Pain Myofascial Pain Syndrome Uti Symptoms Abdominal Pain Chronic Pain Syndrome Sacroiliitis (Hcc) Acute Right-Sided Low Back Pain With Right-Sided Sciatica Encounter for Screening Mammogram for Breast Cancer Adjustment Disorder With Mixed Anxiety and Depressed Mood Headaches Hypothyroidism, Unspecified 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 levothyroxine (SYNTHROID) 112 mcg tablet Take 112 mcg by mouth every morning. Take On an Empty Stomach topiramate (TOPAMAX) 100 mg tablet TAKE 1 TABLET TWICE A DAY [address] (PROTONIX) 40 mg tablet TAKE 1 TABLET DAILY 90 tablet 3 amitriptyline (ELAVIL) 25 mg tablet Take 1 tablet by mouth daily at bedtime. 30 tablet 0 tiZANidine (ZANAFLEX) 4 mg tablet Take 0.5-1 tablets by mouth three times a day as needed (muscle spasms). 90 tablet 3 eletriptan (RELPAX) 40 mg tablet At migraine onset. may repeat in 2 hours if necessary 12 tablet 5 apixaban (ELIQUIS) 5 mg tab(s) Take 1 tablet by mouth two times a day. 180 tablet 1 dicyclomine (BENTYL) 20 mg tablet TAKE ONE TABLET BY MOUTH THREE TIMES A DAY NEEDED FOR ABDOMINAL PAIN 270 tablet 1 polyethylene glycol 3350 (MIRALAX, GLYCOLAX) 17 gram/dose powder Take 17 g by mouth once daily. 510 g 4 ketoconazole (NIZORAL) 2 % cream Apply 1 application to affected area daily at bedtime. 60 g 1 doxycycline hyclate (VIBRAMYCIN) 100 mg capsule Take 1 capsule (100 mg) by mouth two times a day for 10 days. 20 capsule 0 Nzyhtesfkezerbr-Hqzewwolj-H M (BROMFED DM) 2-30-10 mg/5 mL syrup Take 5 mL by mouth four times a day as needed for up to 7 days. 120 mL 0 gabapentin (NEURONTIN) 100 mg capsule Take 2 capsules by mouth daily at bedtime for 30 days. 60 capsule 0 ergocalciferol 50,000 unit capsule (VITAMIN D2, DRISDOL) Take 1 capsule by mouth one time a week. Use as directed. 12 capsule 1 No current facility-administered medications for this visit. Social History Tobacco Use Smoking status: Former Current packs/day: 0.00 Average packs/day: 1 pack/day for 22.0 years (22.0 ttl pk-yrs) Types: Cigarettes Start date: 03/23/1994 Quit date: 03/23/2016 Years since quittin.5 Passive exposure: Past Smokeless tobacco: Never Vaping Use Vaping status: Never Used Substance Use Topics Alcohol use: Not Currently Drug use: Yes Types: Marijuana Comment: Only medical marijuania Alcohol Use: Not Currently Tobacco Use: Types: Cigarettes FAMILY HISTORY Problem Relation Age of Onset Clotting Disorder Father Protein C and S deficiency No Known Problems Mother Clotting Disorder Paternal Grandfather Anesthesia Problems No Family History Review of Systems Constitutional: Positive for chills, fever and malaise/fatigue. HENT: Positive for congestion, ear pain, sinus pain and sore throat. Respiratory: Positive for cough and sputum production. Musculoskeletal: Positive for myalgias. Neurological: Positive for headaches. All other systems reviewed and are negative. BP 99/74 Pulse 77 Temp (Src) 98.3 (Temporal) Resp 18 Wt 120 lb (54.4kg) SpO2 100% LMP 03/08/2022 Physical Exam Vitals and nursing note reviewed. Constitutional: Appearance: Normal appearance. HENT: Head: Normocephalic. Right Ear: Tympanic membrane normal. Left Ear: Tympanic membrane normal. Nose: Congestion and rhinorrhea present. Mouth/Throat: Pharynx: Posterior oropharyngeal erythema present. No oropharyngeal exudate. Eyes: General: Right eye: Discharge present. Left eye: Discharge present. Cardiovascular: Rate and Rhythm: Normal rate and reg (more content not included)... Normal [facility] XR CHEST 2V FRONTAL/LATon XR CHEST 2V FRONTAL/LAT * * *Final Report* * * DATE OF EXAM: Sep 23 2024 11:14AM RMX [id number] - XR CHEST 2V FRONTAL/LAT / PROCEDURE REASON: multiple diagnoses * * * * Physician Interpretation * * * * EXAMINATION: CHEST RADIOGRAPH (2 VIEW FRONTAL and LATERAL) CLINICAL HISTORY: Respiratory illness with fever Respiratory illness with fever MQ: [id number] EXAM DATE/TIME: 09/23/2024 11:14 AM COMPARISON: 05/02/2024 RESULT: Lines, tubes, and devices: None. Lungs and pleura: No consolidation. No lung mass. No pleural effusion. No pneumothorax. Cardiomediastinal silhouette: Normal cardiomediastinal silhouette. Bones and soft tissues: Unremarkable. IMPRESSION: No acute radiographic abnormality. Squeegee Operator: MARK Transcribe Date/Time: Sep 24 2024 7:28A Dictated by : ANTOINETTE MANZANO MD This examination was interpreted and the report reviewed and electronically signed by: ANTOINETTE MANZANO MD on Sep 24 2024 7:28AM EST [id number] Normal [facility] CBC W Auto Differential pane l (Bld)on 09-07-2024 Basophils (Bld) [#/Vol] 10*3/uL Normal <0.11 [facility] Comment on above: Order Comment: Speci men Type: BLOOD SPECIMENOrdering Facility: [facility] Address: [address] [place] [address] [address], [place] [address] Performed By: #### 5 7021-8 ####[facility] LABORATORYCLIA [id number] [place] [address] [place] Basophils/100 WBC (Bld) 0.4 % Normal [facility] Comment on above: Order Comment: Speci men Type: BLOOD SPECIMENOrdering Facility: [facility] Address: [facility] [address], [place] [address] Performed By: #### 5 7021-8 ####[facility] LABORATORYCLIA [id number] [place] [address] [place] [facility] [place] Differential cell count method Nom (Bld) Auto Normal [facility] Comment on above: Order Comment: Speci men Type: BLOOD SPECIMENOrdering Facility: [facility] Address: [facility] [address], [place] [address] Performed By: #### 5 7021-8 ####[facility] LABORATORYCLIA [id number] [place] [address] [place] Eosinophils (Bld) [#/Vol] 0.25 10*3/uL Normal <0.46 [facility] Comment on above: Order Comment: Speci men Type: BLOOD SPECIMENOrdering Facility: [facility] Address: [facility] [address], [place] [address] Performed By: #### 5 7021-8 ####[facility] LABORATORYCLIA [id number] [place] [address] [place] Eosinophils/100 WBC (Bld) 4.6 % Normal [facility] Comment on above: Order Comment: Speci men Type: BLOOD SPECIMENOrdering Facility: [facility] Address: [facility] [address], [place] [address] Performed By: #### 5 7021-8 ####[facility] LABORATORYCLIA [id number] [address] [place] Erythrocyte distribution width (RBC) [Ratio] 12.3 % Normal 11.5-15.0 [facility] Comment on above: Order Comment: Speci men Type: BLOOD SPECIMENOrdering Facility: [facility] Address: [address], [place] [address] Performed By: #### 5 7021-8 ####[facility] LABORATORYCLIA [id number] [place] [address] [place] Hematocrit (Bld) [Volume fraction] 41.3 % Normal 36.0-46.0 [facility] Comment on above: Order Comment: Speci men Type: BLOOD SPECIMENOrdering Facility: [facility] Address: [address], [place] [address] Performed By: #### 5 7021-8 ####[facility] LABORATORYCLIA [id number] [place] [address] [place] Hemoglobin (Bld) [Mass/Vol] 13.3 g/dL Normal 11.5-15.5 [facility] Comment on above: Order Comment: Speci men Type: BLOOD SPECIMENOrdering Facility: [facility] Address: [address], [place] [address] Performed By: #### 5 7021-8 ####[facility] LABORATORYCLIA [id number] [place] [address] [place] Immature granulocytes (Bld) [#/Vol] 10*3/uL Normal <0.10 [facility] Comment on above: Order Comment: Speci men Type: BLOOD SPECIMENOrdering Facility: [facility] Address: [address], [place] [address] Performed By: #### 5 7021-8 ####[facility] LABORATORYCLIA [id number] [place] [address] [place] Immature granulocytes/100 WBC (Bld) 0.2 % Normal [facility] Comment on above: Order Comment: Speci men Type: BLOOD SPECIMENOrdering Facility: [facility] Address: [address], [place] [address] Performed By: #### 5 7021-8 ####[facility] LABORATORYCLIA [id number] [address] [place] Lymphocytes (Bld) [#/Vol] 0.61 10*3/uL Low 1.00-4.00 [facility] Comment on above: Order Comment: Speci men Type: BLOOD SPECIMENOrdering Facility: [facility] Address: [address], [place] [address] Performed By: #### 5 7021-8 ####[facility] LABORATORYCLIA [id number] [address] Lymphocytes/100 WBC (Bld) 11.2 % Normal [facility] Comment on above: Order Comment: Speci men Type: BLOOD SPECIMENOrdering Facility: [facility] Address: [address], [place] [address] Performed By: #### 5 7021-8 ####[facility] LABORATORYCLIA [id number] [address] [place] MCH (RBC) [Entitic mass] 30.4 pg Normal 26.0-34.0 [facility] Comment on above: Order Comment: Speci men Type: BLOOD SPECIMENOrdering Facility: [facility] Address: [address], [place] [address] Performed By: #### 5 7021-8 ####[facility] LABORATORYCLIA [id number] [address] [place] MCHC (RBC) [Mass/Vol] 32.2 g/dL Normal 30.5-36.0 [facility] Comment on above: Order Comment: Speci men Type: BLOOD SPECIMENOrdering Facility: [facility] Address: [address], [place] [address] Performed By: #### 5 7021-8 ####[facility] LABORATORYCLIA [id number] [address] OF [facility] MCV (RBC) [Entitic vol] 94.5 fL Normal 80.0-100.0 [facility] Comment on above: Order Comment: Speci men Type: BLOOD SPECIMENOrdering Facility: [facility] Address: [address], [place] [address] Performed By: #### 5 7021-8 ####[facility] LABORATORYCLIA [id number] [place] [address] [place] Monocytes (Bld) [#/Vol] 0.46 10*3/uL Normal <0.87 [facility] Comment on above: Order Comment: Speci men Type: BLOOD SPECIMENOrdering Facility: [facility] Address: [address], [place] [address] Performed By: #### 5 7021-8 ####[facility] LABORATORYCLIA [id number] [place] [address] [place] Monocytes/100 WBC (Bld) 8.4 % Normal [facility] Comment on above: Order Comment: Speci men Type: BLOOD SPECIMENOrdering Facility: [facility] Address: [address], [place] [address] Performed By: #### 5 7021-8 ####[facility] LABORATORYCLIA [id number] [place] [address] [place] Neutrophils (Bld) [#/Vol] 4.12 10*3/uL Normal 1.45-7.50 [facility] Comment on above: Order Comment: Speci men Type: BLOOD SPECIMENOrdering Facility: [facility] Address: [address], [place] [address] Performed By: #### 5 7021-8 ####[facility] LABORATORYCLIA [id number] [place] [address] [place] Neutrophils/100 WBC (Bld) 75.2 % Normal [facility] Comment on above: Order Comment: Speci men Type: BLOOD SPECIMENOrdering Facility: [facility] Address: [address], [place] [address] Performed By: #### 5 7021-8 ####[facility] LABORATORYCLIA [id number] [place] [address] [place] Nucleated RBC (Bld) [#/Vol] 10*3/uL Normal <0.01 [facility] Comment on above: Order Comment: Speci men Type: BLOOD SPECIMENOrdering Facility: [facility] Address: [address], [place] [address] Performed By: #### 5 7021-8 ####[facility] LABORATORYCLIA [id number] [place] [address] [place] Nucleated RBC/100 WBC (Bld) [Ratio] 0.0 /100 WBC Normal [facility] Comment on above: Order Comment: Speci men Type: BLOOD SPECIMENOrdering Facility: [facility] Address: [address], [place] [address] Performed By: #### 5 7021-8 ####[facility] LABORATORYCLIA [id number] [place] [address] [place] Platelet mean volume (Bld) [Entitic vol] 9.5 fL Normal 9.0-12.7 [facility] Comment on above: Order Comment: Speci men Type: BLOOD SPECIMENOrdering Facility: [facility] Address: [address], [place] [address] Performed By: #### 5 7021-8 ####[facility] LABORATORYCLIA [id number] [place] [address] [place] Platelets (Bld) [#/Vol] 260 10*3/uL Normal 150-400 [facility] Comment on above: Order Comment: Speci men Type: BLOOD SPECIMENOrdering Facility: [facility] Address: [address], [place] [address] Performed By: #### 5 7021-8 ####[facility] LABORATORYCLIA [id number] [place] [address] [place] RBC (Bld) [#/Vol] 4.37 10*6/uL Normal 3.90-5.20 [facility] Comment on above: Order Comment: Speci men Type: BLOOD SPECIMENOrdering Facility: [facility] Address: [address] [place] [address] Performed By: #### 5 7021-8 ####[facility] LABORATORYCLIA [id number] [address] WBC (Bld) [#/Vol] 5.47 10*3/uL Normal 3.70-11.00 [facility] Comment on above: Order Comment: Speci men Type: BLOOD SPECIMENOrdering Facility: [facility] Address: [address], [place] [address] Performed By: #### 5 7021-8 ####[facility] LABORATORYCLIA [id number] [address] Comprehensive metabolic 2000 panelon 09-07-2024 Albumin [Mass/Vol] 3.9 g/dL Normal 3.2-5.0 [facility] Comment on above: Order Comment: Speci men Type: BLOOD SPECIMENOrdering Facility: [facility] Address: [address], [place] [address] Performed By: #### 2 132-9, 19147-1, 3016-3, 42926-3 ####[facility] LABORATORYCLIA [id number] [address]#### 78394-7 ####[facility] LABORATORYCLIA [id number] [address]MERSAINT [facility] LABCLIA [id number] [address] ALP [Catalytic activity/Vol] 57 U/L Normal 45-117 [facility] Comment on above: Order Comment: Speci men Type: BLOOD SPECIMENOrdering Facility: [facility] Address: [address], [place] [id number] Performed By: #### 2 132-9, 39391-7, 3016-3, 25267-8 ####[facility] LABORATORYCLIA [id number] [address]#### 42056-4 ####[facility] LABORATORYCLIA [id number] [address] [facility] [id number] [address] ALT [Catalytic activity/Vol] 12 U/L Low 13-61 [facility] Comment on above: Order Comment: Speci men Type: BLOOD SPECIMENOrdering Facility: [facility] Address: [facility] [address], [place] [address] Result Comment: Resu lts may be falsely depressed after the administration of Sulfasalazine and/or Sulfapyridine. Performed By: #### 2 132-9, 16256-0, 3016-3, 27244-3 ####[facility] LABORATORYCLIA [id number] [address]#### 80137-3 ####[facility] LABORATORYCLIA [id number] [address] LABIA [id number] [address] Anion gap [Moles/Vol] 7 mmol/L Normal 5-16 [facility] Comment on above: Order Comment: Speci men Type: BLOOD SPECIMENOrdering Facility: [facility] Address: [facility] [address], [place] [address] Performed By: #### 2 132-9, 26165-2, 3016-3, 63847-9 ####[facility] LABORATORYCLIA [id number] [address]#### 25713-7 ####[facility] LABORATORYCLIA [id number] [address] LABIA [id number] [address] STATES OF [facility] AST [Catalytic activity/Vol] 16 U/L Normal 8-34 [facility] Comment on above: Order Comment: Speci men Type: BLOOD SPECIMENOrdering Facility: [facility] Address: [address], [place] [address] Result Comment: Resu lts may be falsely depressed after the administration of Sulfasalazine and/or Sulfapyridine. Performed By: #### 2 132-9, 85531-3, 3016-3, 85286-7 ####[facility] LABORATORYCLIA [id number] [address]#### 37817-7 ####[facility] LABORATORYCLIA [id number] [address] LABIA [id number] [address] [place] Bilirubin [Mass/Vol] 0.2 mg/dL Normal 0.2-1.0 [facility] Comment on above: Order Comment: Speci men Type: BLOOD SPECIMENOrdering Facility: [facility] Address: [address], [place] [address] Performed By: #### 2 132-9, 94561-7, 6-3, 26295-5 ####[facility] LABORATORYCLIA [id number] [address]#### 73154-3 ####[facility] LABORATORYCLIA [id number] [address] LABIA [id number] [address] STATES OF [facility] Calcium [Mass/Vol] 9.7 mg/dL Normal 8.5-10.5 [facility] Comment on above: Order Comment: Speci men Type: BLOOD SPECIMENOrdering Facility: [facility] Address: [address], [place] [address] Performed By: #### 2 132-9, 44024-6, 3016-3, 89127-8 ####[facility] LABORATORYCLIA [id number] [address]#### 22146-5 ####[facility] LABORATORYCLIA [id number] [address] [facility] [id number] [address] [place] Chloride [Moles/Vol] 112 mmol/L High 98-107 [facility] Comment on above: Order Comment: Speci men Type: BLOOD SPECIMENOrdering Facility: [facility] Address: [facility] [address], [place] [address] Performed By: #### 2 132-9, 31578-2, 3016-3, 80128-1 ####[facility] LABORATORYCLIA [id number] [address]#### 18315-3 ####[facility] LABORATORYCLIA [id number] [address] LABIA [id number] [address] [place] CO2 [Moles/Vol] 25 mmol/L Normal 21-32 [facility] Comment on above: Order Comment: Speci men Type: BLOOD SPECIMENOrdering Facility: [facility] Address: [facility] [address], [place] [address] Performed By: #### 2 132-9, 17576-7, 3016-3, 20436-9 ####[facility] LABORATORYCLIA [id number] [address]#### 17911-7 ####[facility] LABORATORYCLIA [id number] [address] [facility] [id number] [address] [place] Creatinine [Mass/Vol] 0.75 mg/dL Normal 0.51-0.95 [facility] Comment on above: Order Comment: Speci men Type: BLOOD SPECIMENOrdering Facility: [facility] Address: [facility] [address], [place] [address] Result Comment: Nasreen ents receiving either N-Acetylcysteine (NAC) or Metamizole prior to venipuncture, may have falsely depressed results. Performed By: #### 2 132-9, 96003-9, 6-3, ####[facility] LABORATORYCLIA [id number] [address]#### 44919-0 ####[facility] LABORATORYCLIA [id number] [address] [id number] [address] Creatinine and Glomerular filtration rate.predicted panel (S/P/Bld) 100 mL/min/1.73m??? Normal >=60 [facility] Comment on above: Order Comment: Speci men Type: BLOOD SPECIMENOrdering Facility: [facility] Address: [facility] [address], [place] [address] Result Comment: Dea mated Glomerular Filtration Rate (eGFR) is calculated using the 2020 CKD-EPI creatinine equation. This equation utilizes serum creatinine, sex, and age as parameters. The creatinine assay has traceable calibration to isotope dilution-mass spectrometry. Refer to KDIGO guidelines for clinical interpretation. In patients with unstable renal function, e.g. those with acute kidney injury, the eGFR may not accurately reflect actual GFR. Performed By: #### 2 132-9, 55230-4, 3015-3, ####[facility] LABORATORYCLIA [id number] [address]#### 04718-7 ####[facility] LABORATORYCLIA [id number] [address] LABIA [id number] [address] Glucose [Mass/Vol] 95 mg/dL Normal 70-100 [facility] Comment on above: Order Comment: Speci men Type: BLOOD SPECIMENOrdering Facility: [facility] Address: [address], [place] [address] Result Comment: The [place] Diabetes Association (ADA) provides guidance for cutoff values for fasting glucose and random glucose. The ADA defines fasting as no caloric intake for at least 8 hours. Fasting plasma glucose results between 100 to 125 mg/dL indicate increased risk for diabetes (prediabetes). Fasting plasma glucose results greater than or equal to 126 mg/dL meet the criteria for diagnosis of diabetes. In the absence of unequivocal hyperglycemia, results should be confirmed by repeat testing. In a patient with classic symptoms of hyperglycemia or hyperglycemic crisis, random plasma glucose results greater than or equal to 200 mg/dL meet the criteria for diagnosis of diabetes. Reference: Standards of Medical Care in Diabetes 2016, [place] Diabetes Association. Diabetes Care. 2016.39(Suppl 1). Results may be falsely elevated after the administration of Sulfapyridine. Results may be falsely depressed after the administration of Sulfasalazine. Performed By: #### 2 132-9, 80909-1, 3015-3, 28727-8 ####[facility] LABORATORYCLIA [id number] [place] [address] [place]#### 74393-6 ####[facility] LABORATORYCLIA [id number] [address] STATES OF [facility]AMERSA[facility] LABCLIA [id number] [place] [address] [place] Potassium [Moles/Vol] 4.0 mmol/L Normal 3.5-5.1 [facility] Comment on above: Order Comment: Speci men Type: BLOOD SPECIMENOrdering Facility: [facility] Address: [address], [place] [id number] Performed By: #### 2 132-9, 77615-8, 3015-3, 42578-1 ####[facility] LABORATORYCLIA [id number] [place] [address] [place]#### 58983-1 ####[facility] LABORATORYCLIA [id number] [place] [address] [facility] LABIA [id number] [place] [address] [place] Protein [Mass/Vol] 6.3 g/dL Normal 6.0-8.5 [facility] Comment on above: Order Comment: Speci men Type: BLOOD SPECIMENOrdering Facility: [facility] Address: [address], [place] [id number] Performed By: #### 2 132-9, 88181-8, 3016-3, 76370-9 ####[facility] LABORATORYCLIA [id number] [address] [place]#### 87997-1 ####[facility] LABORATORYCLIA [id number] [place] [id number] [facility] LABIA [id number] [place] [address] [place] Sodium [Moles/Vol] 144 mmol/L Normal 136-145 [facility] Comment on above: Order Comment: Speci men Type: BLOOD SPECIMENOrdering Facility: [facility] Address: [address], [place] [id number] Performed By: #### 2 132-9, 95409-3, 3016-3, 12622-8 ####[facility] LABORATORYCLIA [id number] [address] [place]#### 92813-4 ####[facility] LABORATORYCLIA [id number] [place] [address] [facility] LABIA [id number] [place] [id number] [place] Urea nitrogen [Mass/Vol] 10 mg/dL Normal 7-26 [facility] Comment on above: Order Comment: Speci men Type: BLOOD SPECIMENOrdering Facility: [facility] Address: [address], [place] [address] Performed By: #### 2 132-9, 74021-8, 3016-3, 91593-8 ####[facility] LABORATORYCLIA [id number] [address] [place]#### 04135-7 ####[facility] LABORATORYCLIA [id number] [place] [id number] [place] OF [facility] LABCLIA [id number] [address] [place] Folate SerPl-mCncon 09-07-20 24 Folate [Mass/Vol] 4.3 ng/mL Normal >3.0 [facility] Comment on above: Order Comment: Speci men Type: BLOOD SPECIMENOrdering Facility: [facility] Address: [facility] [address], [place] [address] Performed By: #### 2 284-8 ####[facility] LABORATORYCLIA [id number] [address] [place] HbA1c (Bld)on 09-07-2024 Average glucose Estimated from glycated hemoglobin (Bld) [Mass/Vol] 100 mg/dL Normal [facility] Comment on above: Order Comment: Speci marietta Type: BLOOD SPECIMENOrdering Facility: [facility] Address: [address], [place] [address] Result Comment: eAG: (Estimated average glucose) is a calculated value from HgbA1c and is inventory representative of the average blood glucose level in the last 2-3 month period. Performed By: #### 5 5454-3 ####[facility] LABCLIA [id number] [place] [id number] [place] HbA1c (Bld) [Mass fraction] 5.1 % Normal 4.3-5.6 [facility] Comment on above: Order Comment: Alejandro mcmanus Type: BLOOD SPECIMENOrdering Facility: [facility] Address: [address], [place] [address] Result Comment: [place] Diabetes Association guidelines indicate that patients with HgbA1c in the range 5.7-6.4% are at increased risk for development of diabetes, and intervention by lifestyle modification may be beneficial. HgbA1c greater or equal to 6.5% is considered diagnostic of diabetes. Performed By: #### 5 5454-3 ####[facility] LABCLIA [id number] [place] [address] [address] [place] Iron and Iron binding capaci ty panelon 09-07-2024 Iron [Mass/Vol] 20 ug/dL Low 50-170 [facility] Comment on above: Order Comment: Speci men Type: BLOOD SPECIMENOrdering Facility: [facility] Address: [address], [place] [address] Result Comment: Nasreen ents treated with metal-binding drugs (e.g.deferoxamine) may have depressed iron values, as chelated iron may not properly react in the Siemens iron assay. Performed By: #### 2 132-9, 21609-0, 3016-3, 30531-2 ####[facility] LABORATORYCLIA [id number] [address]#### 98448-4 ####[facility] LABORATORYCLIA [id number] [address] LABIA [id number] [address] [facility] Iron binding capacity [Mass/Vol] 293 ug/dL Normal 221-481 [facility] Comment on above: Order Comment: Alejandro mcmanus Type: BLOOD SPECIMENOrdering Facility: [facility] Address: [address], [place] [address] Performed By: #### 2 132-9, 37052-2, 3016-3, 14371-5 ####[facility] LABORATORYCLIA [id number] [address] OF [place]#### 44911-6 ####[facility] LABORATORYCLIA [id number] [place] [address] [facility] LABIA [id number] Iron/TIBC [Molar ratio] 6.8 % Low 22.0-44.0 [facility] Comment on above: Order Comment: Speci men Type: BLOOD SPECIMENOrdering Facility: [facility] Address: [address], [place] [address] Performed By: #### 2 132-9, 89512-5, 3016-3, 17125-1 ####[facility] LABORATORYCLIA [id number] [address]#### 88684-5 ####[facility] LABORATORYCLIA [id number] [address] LABIA [id number] [address] Lipid 1996 panelon 4 Cholesterol [Mass/Vol] 198 mg/dL Normal 0-199 [facility] Comment on above: Order Comment: Speci men Type: BLOOD SPECIMENOrdering Facility: [facility] Address: [address], [place] [address] Result Comment: <200 mg/dL, Desirable 200-239 mg/dL, Borderline high >239 mg/dL, High Performed By: #### 2 132-9, 62633-2, 3016-3, 07215-0 ####[facility] LABORATORYCLIA [id number] [address] OF [facility]#### 67869-1 ####[facility] LABORATORYCLIA [id number] [address] LABIA [id number] [address] [place] Cholesterol in HDL [Mass/Vol] 56 mg/dL Normal >40 [facility] Comment on above: Order Comment: Speci men Type: BLOOD SPECIMENOrdering Facility: [facility] Address: [address], [place] [address] Result Comment: 40-5 9 mg/dL, Acceptable >59 mg/dL, High: Negative risk factor for coronary heart disease <40 mg/dL, Low: Positive risk factor for coronary heart disease Performed By: #### 2 132-9, 66341-5, 3016-3, 23717-8 ####[facility] LABORATORYCLIA [id number] [address] OF [place]#### 75385-0 ####[facility] LABORATORYCLIA [id number] [address] LABCLIA [id number] [address] Cholesterol in LDL [Mass/Vol] 128 mg/dL Normal 0-129 [facility] Comment on above: Order Comment: Speci men Type: BLOOD SPECIMENOrdering Facility: [facility] Address: [address], [place] [address] Result Comment: <100 mg/dL, Optimal 100-129 mg/dL, Near optimal/above optimal 130-159 mg/dL, Borderline high 160-189 mg/dL, High >189 mg/dL, Very high Secondary prevention optimal LDL Cholesterol levels are recommended to be < 70 mg/dL Performed By: #### 2 132-9, 35631-6, 3016-3, 99959-1 ####[facility] LABORATORYCLIA [id number] [address]#### 83735-9 ####[facility] LABORATORYCLIA [id number] [address] LABCLIA [id number] [address] Cholesterol in LDL/Cholesterol in HDL [Mass ratio] 2.29 {ratio} Normal <2.54 [facility] Comment on above: Order Comment: Speci men Type: BLOOD SPECIMENOrdering Facility: [facility] Address: [address], [place] [address] Result Comment: Refe rence: 1. National Cholesterol Education Program ATP III Guideline At-A-Glance Quick Desk Reference: National Heart, Lung, and Blood [place]. National Institutes of Health. 2001: NIH Publication No. 01-3305. 2. An International Atherosclerosis Society position paper: global recommendations for the management of dyslipidemia: executive summary, Atherosclerosis. 2014: 232(2):410-413. Performed By: #### 2 132-9, 80609-6, 3016-3, 57590-5 ####[facility] LABORATORYCLIA [id number] [address]#### 15184-0 ####[facility] LABORATORYCLIA [id number] [address] LABIA [id number] [address] Cholesterol in VLDL [Mass/Vol] 14 mg/dL Normal <30 [facility] Comment on above: Order Comment: Speci men Type: BLOOD SPECIMENOrdering Facility: [facility] Address: [address], [place] [address] Performed By: #### 2 132-9, 43210-5, 3016-3, 97214-3 ####[facility] LABORATORYCLIA [id number] [address]#### 84610-7 ####[facility] LABORATORYCLIA [id number] [address] LABIA [id number] [address] Cholesterol non HDL [Mass/Vol] 142 mg/dL High <130 [facility] Comment on above: Order Comment: Speci men Type: BLOOD SPECIMENOrdering Facility: [facility] Address: [address], [place] [address] Result Comment: <130 mg/dL, Optimal 130-159 mg/dL, Near optimal/above optimal 160-189 mg/dL, Borderline high 190-219 mg/dL, High >219 mg/dL, Very high Secondary prevention optimal non HDL Cholesterol levels are recommended to be <100 mg/dL Performed By: #### 2 132-9, 68746-2, 3016-3, 49657-7 ####[facility] LABORATORYCLIA [id number] [address]#### 03134-4 ####[facility] LABORATORYCLIA [id number] [place] [id number] [facility] LABIA [id number] [address] Cholesterol.total/Cho lesterol in HDL [Mass ratio] 3.54 {ratio} Normal <5.10 [facility] Comment on above: Order Comment: Speci men Type: BLOOD SPECIMENOrdering Facility: [facility] Address: [facility] [address], [place] [address] Performed By: #### 2 132-9, 61514-2, 3015-3, ####[facility] LABORATORYCLIA [id number] [address]#### 86327-1 ####[facility] LABORATORYCLIA [id number] [address] LABIA [id number] [address] FASTING TIME 10 hrs Normal [facility] Comment on above: Order Comment: Speci men Type: BLOOD SPECIMENOrdering Facility: [facility] - [place] Address: [address], [place] [address] Performed By: #### 2 132-9, 17775-8, 6-3, 46066-4 ####[facility] LABORATORYCLIA [id number] [address]#### [address]-8 ####[facility] LABORATORYCLIA [id number] [place] [id number] [facility] LABCLIA [id number] [place] [address] [place] Triglyceride [Mass/Vol] 70 mg/dL Normal 30-149 [facility] Comment on above: Order Comment: Speci marietta Type: BLOOD SPECIMENOrdering Facility: [facility] Address: [facility] [address], [place] [address] Result Comment: <150 mg/dL, Normal 150-199 mg/dL, Borderline high 200-499 mg/dL, High >499 mg/dL, Very high Patients receiving either N-Acetylcysteine (NAC) or Metamizole prior to venipuncture, may have falsely depressed results. Performed By: #### 2 132-9, 47162-5, 3016-3, 63006-1 ####[facility] LABORATORYCLIA [id number] [address] STATES OF [facility]#### 674[address]-9 ####[facility] LABORATORYCLIA [id number] [place] [address] [place] [facility] LABCLIA [id number] [place] [address] [place] Methylmalonate SerPl-sCncon 09-07-2024 Methylmalonate [Moles/Vol] 0.26 umol/L Normal <=0.40 [facility] Comment on above: Order Comment: Speci marietta Type: BLOOD SPECIMENOrdering Facility: [facility] Address: [address], [place] [address] Result Comment: This test was developed, and its performance characteristics determined by the [facility] Department of Pathology and Laboratory Medicine. It has not been cleared or approved by the FDA. The [facility] Department of Pathology and Laboratory Medicine is regulated under CLIA as qualified to perform high-complexity testing. This test is used for clinical purposes. It should not be regarded as investigational or for research. Performed By: #### 1 3964-2 ####[facility] LABCLIA [id number] [facility] [id number] [place], [place] [id number] [place] TSH SerPl-aCncon 09-07-2024 TSH Qn 0.274 m[IU]/L Low 0.358-3.74 0 [facility] Comment on above: Order Comment: Speci men Type: BLOOD SPECIMENOrdering Facility: [facility] Address: [address], [place] [address] Result Comment: 3rd generation ultra sensitive TSH. Performed By: #### 2 132-9, 14555-4, 3016-3, 65965-7 ####[facility] LABORATORYCLIA [id number] [address]#### [address]-7 ####[facility] LABORATORYCLIA [id number] [address] LABCLIA [id number] [address] Vit B12 SerPl-ncon 11-16-2 024 Cobalamin (Vitamin B12) [Mass/Vol] 337 pg/mL Normal 193-986 [facility] Comment on above: Order Comment: Speci men Type: BLOOD SPECIMENOrdering Facility: [facility] Address: [address], [place] [address] Performed By: #### 2 132-9, 10075-3, 6-3, 29952-5 ####[facility] LABORATORYCLIA [id number] [address]#### 71328-1 ####[facility] LABORATORYCLIA [id number] [address] LABCLIA [id number] [address] CNOVon 08-28-2024 CNOV Office Visit (JUAN LUIS ) SUHA CALIX ([id number]) 1980 F CHT Date Time Provider Department 08/28/24 3:30 PM MISAEL WALL During your visit today, we recorded the following information about you: Pulse Respiration Blood pressure Weight 77/minute 14/minute 123/81 54.4 kg Height 1.651 m Antoinette Daugherty MA 08/28/2024 3:23 PM Signed Room 3 Misael Wall MD 08/28/2024 4:41 PM Signed PATIENT: Suha Calix : 1980 DATE OF SERVICE: 08/28/2024 REFERRING PRACTITIONER: No ref. provider found PRIMARY CARE PROVIDER: Dwayne Mcdaniel MD CHIEF COMPLAINT: Patient presents with: Neck Pain HISTORY OF PRESENT ILLNESS: Suha Calix is a 44 year old year old female who presents to the clinic today with chief complaint(s) as above. Following up for: Generalized pain worse in the neck Response to treatment recommendations: A few days of relief with trigger point injections Current primary concern/description: Continued neck, mid back and low back pain Pain Level: 8 /10 Better with: Heat, massage Worse with: Pain is constant and worse with activity of any kind Numbness/Tingling: [] Yes [x] No Bladder/bowel fxn change: [] Yes [x] No --- 14 point ROS as above; pertinent positives listed above, the rest are reviewed and confirmed to be negative. Nursing ROS Reviewed and confirmed. === HISTORY: ALLERGIES Allergen Reactions Latex Rash Penicillins Anaphylaxis Tape [Adhesive Tape* Rash Toradol [Ketorolac] Swelling Tongue swelling PAST MEDICAL HISTORY Diagnosis Date Anxiety and depression GERD (gastroesophageal reflux disease) H/O protein C deficiency H/O protein S deficiency History of DVT (deep vein thrombosis) 10/04/2021 Hypothyroid Malignant melanoma (HCC) Migraines Other specified hypothyroidism 10/04/2021 TMJ (temporomandibular joint disorder) PAST SURGICAL HISTORY Procedure Laterality Date ARTERY TO VEIN SHUNT 06/28/[address] [facility] SE[facility] SINGLE 1997 COLONOSCOPY SCREENING 01/16/2023 EGD W/O [facility] SPEC VARICIES INJ 01/16/2023 ESOPHAGOGASTRODUODENOSCOPY TRANSORAL DIAGNOSTIC 03/23/2013 EGD HAND SURGERY HX Left trigger finger release 3 rd finger HYSTEROSCOPY, DIAGNOSTIC (SEPARATE 10/18/2021 IR IVC FILTER PLACEMENT 2010 MALIGNANT MELANOMA - WIDE EXCISION IN ANY AREA AND MUST INCLUDE > 1CM MARGINS AND LAYERED CLOSURE TONSILLECTOMY AND ADENOIDECTOMY VAGINAL HYSTERECTOMY 03/08/2022 total FAMILY HISTORY Problem Relation Age of Onset Clotting Disorder Father Protein C and S deficiency No Known Problems Mother Clotting Disorder Paternal Grandfather Anesthesia Problems No Family History Social History Tobacco Use Smoking status: Former Current packs/day: 0.00 Average packs/day: 1 pack/day for 22.0 years (22.0 ttl pk-yrs) Types: Cigarettes Start date: 03/23/1994 Quit date: 03/23/2016 Years since quittin.4 Smokeless tobacco: Never Vaping Use Vaping status: Never Used Substance Use Topics Alcohol use: Not Currently Drug use: Yes Types: Marijuana Comment: [facility] Current Outpatient Medications Medication Sig eletriptan (RELPAX) 40 mg tablet At migraine onset. may repeat in 2 hours if necessary erenumab-aooe (AIMOVIG AUTOINJECTOR) 70 mg/mL auto-injector Inject 1 mL subcutaneously once every month. ondansetron orally disintegrating (ZOFRAN ODT) 4 mg disintegrating tablet Take 1 tablet by mouth every 8 hours as needed for nausea/vomiting. levothyroxine (SYNTHROID) 125 mcg tablet Take 1 tablet by mouth once daily. apixaban (ELIQUIS) 5 mg tab(s) Take 1 tablet by mouth two times a day. pantoprazole DR (PROTONIX) 40 mg tablet Take 1 tablet by mouth once daily. topiramate (TOPAMAX) 100 mg tablet Take 1 tablet by mouth two times a day. dicyclomine (BENTYL) 20 mg tablet TAKE ONE TABLET BY MOUTH THREE TIMES A DAY NEEDED FOR ABDOMINAL PAIN polyethylene glycol 3350 (MIRALAX, GLYCOLAX) 17 gram/dose powder Take 17 g by mouth once daily. amitriptyline (ELAVIL) 25 mg tablet Take 1 tablet by mouth daily at bedtime. tiZANidine (ZANAFLEX) 4 mg tablet Take 0.5-1 tablets by mouth three times a day as needed (muscle spasms). gabapentin (NEURONTIN) 100 mg capsule Take 2 capsules by mouth daily at bedtime for 30 days. ergocalciferol 50,000 unit capsule (VITAMIN D2, DRISDOL) Take 1 capsule by mouth one time a week. Use as directed. No current facility-administered medications for this visit. OBJECTIVE: VS: BP 123/81 (BP Site: Left Arm, BP Position: Sitting, BP Cuff Size: Regular Adult) Pulse 77 Resp 14 Ht 165.1 cm (5' 5) Wt 54.4 kg (120 lb) LMP 03/08/2022 SpO2 100% BMI 19.97 kg/m? Body mass index is 19.97 kg/m?. PHYSICAL EXAMINATION: Gen: Well developed. No acute distress. Eyes: Conjunctivae clear. Normal upper and lower (more content not included)... Normal [facility] Tilt Tableon 08-28-2024 Tilt Table [facility] [address] [address] [address] 08/28/24 1243 MR#: [id number] Acct: [id number] Name: SUHA CALIX Rep #: [id number] : 1980 44 From: Jhonny Guerrero MD Attending Dr: PRAVEENA Berry Status: REG CLI Ordering Dr: Tiara Sue Date: 08/28/24 Location: [facility] Sex: F C Admitted: Staff Staff: Fab Mcneill Summary Pre Test Resting HR: 77 Pre Test Resting BP: 112/75 Minimum Test HR: 77 Maximum Test HR: 134 Minimum Test BP: 78/0 Maximum Test BP: 112/75 Reason for Test Termination: Syncope Physician Tilt Table Report Patient's Physicians Primary Care Physician: Jenna Ramos Indications/Diagnosis: Syncope Procedure Comments: Patient was brought to the noninvasive lab in the postabsorptive nonsedated state. Informed consent was obtained. Initial heart rate and blood pressure was obtained as well as EKG. Initial EKG demonstrated sinus rhythm with a rate of 77 bpm blood pressure started in 12 over 75 mmHg. The patient was then placed in the 70 degree head upright tilt position. Continuous EKG monitoring was performed as well as blood pressure measurements. Patient had mild increase in heart rate and drop in blood pressure on standing but no significant orthostatic changes were noted. After 20 minutes patient was put back in the recumbent position. Patient was then given 0.4 mg of sublingual nitroglycerin. The patient was then put back in the 70 degree head upright tilt position. Heart rate went up from 109 to134 bpm with a drop in the blood pressure with patient feeling clammy. Patient heart rate then improved to approximately 108 bpm with a final blood pressure of 92/66 mmHg. Summary: Likely orthostatic blood pressure changes from sublingual nitroglycerin. 08/28/24 1357 Date Jhonny Guerrero MD CC: PRAVEENA Berry; Dr. Jenna Ramos DO Date Dictated: 08/28/241242 Date Transcribed: 08/28/241242 Squeegee Operator: CO Signed [facility] HEALTHon 08-25-2024 [facility] HNO ID: [id number] Author: NAZ CRESPO RT(R) Service: Radiology Author Type: Technologist Type: Allied Health Filed: 08/25/2024 10:57 Note Text: Summary: ct Radiology Service Progress Note PATIENT NAME: Suha Calix DATE OF SERVICE: August 25, 2024 TIME: 10:56 AM PATIENT IDENTITY VERIFICATION COMPLETED USING TWO (2) IDENTIFIERS: Name and Date of confirmed by patient verbally. FALL SCREENING: Has the patient had 2 falls in the last year or 1 fall with injury or currently using an Ambulatory Assistive Device (Walker, Cane, Wheelchair, Crutches, etc.)? No PATIENT GENDER DATA: Female. status: : No status: NO. PATIENT RELEVANT IMPLANT DATA REVIEWED: Not Applicable PATIENT PRESENTS WITH AN IMPLANTABLE OR ATTACHED CONTRACT ADMINISTRATION MANAGER: No RADIOLOGY DEPARTMENT: CT; Exam(s) Completed: Brain and Neck PERIPHERAL IV DATA: Not applicable SIGNED BY: Naz Crespo, RT(R) August 25, 2024 10:56 AM [facility] CT BRAIN WO IVCONon 08-25-[address] BRAIN WO IVCON * * *Final Report* * * DATE OF EXAM: Aug 25 2024 11:00AM [facility] 0504 - CT BRAIN WO IVCON / PROCEDURE REASON: Head trauma, moderate-severe * * * * Physician Interpretation * * * * EXAMINATION: CT BRAIN WO IVCON CLINICAL HISTORY: Head trauma, moderate to severe. Fall with head injury and intractable migraine. TECHNIQUE: Serial axial images without IV contrast were obtained from the vertex to the foramen magnum. MQ: CTBWO_3 CT Radiation dose: Integrated Dose-Length Product (DLP) for this visit = 867.08 mGy*cm CT Dose Reduction Employed: Automated exposure control(AEC) and iterative recon COMPARISON: None. RESULT: Post-operative change: None. Acute change: No evidence of an acute infarct or other acute parenchymal process. Hemorrhage: No evidence of acute intracranial hemorrhage. ECASS hemorrhagic transformation score: Not Applicable Mass Lesion / Mass Effect: There is no evidence of an intracranial mass or extraaxial fluid collection. No significant mass effect. Chronic change: None apparent. Parenchyma: There is no significant volume loss. The brain parenchyma is otherwise within normal limits for age. Ventricles: The ventricles are within normal limits of size and configuration for age. Paranasal sinuses and skull base: The visualized paranasal sinuses are grossly clear. The skull base and imaged soft tissues are unremarkable. Localizer images: Unremarkable. IMPRESSION: No acute intracranial abnormality. Dictated by Appointment Setter: Konrad Denny MD I, Yocasta Gonzalez MD, have supervised the procedure and/or image review, and agree with the above interpretation and report. Squeegee Operator: PSCB Transcribe Date/Time: Aug 25 2024 11:02A Dictated by : KONRAD DENNY MD This examination was interpreted and the report reviewed and electronically signed by: YOCASTA GONZALEZ MD on Aug 25 2024 12:05PM EST [id number] [facility] CT CERVICAL SPINE WO IVCONon 08-25-2024 CT CERVICAL SPINE WO IVCON * * *Final Report* * * DATE OF EXAM: Aug 25 2024 11:00AM [facility] 0505 - CT CERVICAL SPINE WO IVCON / PROCEDURE REASON: Spine fracture, cervical, traumatic * * * * Physician Interpretation * * * * EXAMINATION: CT CERVICAL SPINE WO IVCON CLINICAL HISTORY: Spine fracture, cervical, traumatic TECHNIQUE: Spiral, high resolution axial unenhanced images were obtained from the skull base to the cervicothoracic junction with sagittal and coronal planar reconstructions. MQ: CTCSPWO_5 CT Radiation dose: Integrated CT Dose-Length Product (DLP) for this visit = 867.08 mGy*cm CT Dose Reduction Employed: Automated exposure control(AEC) and iterative recon COMPARISON: None. RESULT: Counting reference: Craniocervical junction. Anatomic Variants: None. Wheel Aligner (topogram) images: Unremarkable. Alignment: Alignment is anatomic. Craniocervical junction: Craniocervical junction is normal. Osseous structures/fracture: No evidence of a lytic or blastic process in the visualized spine. No evidence of acute or chronic fracture. No interspinous widening, jumped, or perched facets. Cervical soft tissues: The paraspinal soft tissues are within normal limits. Degenerative changes: No significant degenerative changes. IMPRESSION: No acute fracture or traumatic malalignment. Anatomic Variant: None. Assume 7 cervical vertebrae with counting from the craniocervical junction. Dictated by Appointment Setter: Konrad Denny MD I, Yocasta Gonzalez MD, have supervised the procedure and/or image review, and agree with the above interpretation and report. Squeegee Operator: PSCB Transcribe Date/Time: Aug 25 2024 11:18A Dictated by : KONRAD DENNY MD This examination was interpreted and the report reviewed and electronically signed by: YOCASTA GONZALEZ MD on Aug 25 2024 12:08PM EST [id number] [facility] ED NOTEon 08-25-2024 ED NOTE HNO ID: [id number] Author: IVET CORREIA RN Service: ? Author Type: Registered Nurse Type: ED Notes Filed: 08/25/2024 12:21 Note Text: Cervical collar removed per MD's orders. [facility] ED PROV NOTEon 08-25-2024 ED PROV NOTE HNO ID: [id number] Author: TAMRA GOVEA MD Service: ? Author Type: Physician Type: ED Provider Notes Filed: 08/25/2024 13:09 Note Text: ED Provider Note Patient Name: Suha Calix : 1980 SERVICE DATE: 08/25/24 History Patient presents with: Headache: Pt reports migraine for 10 days. Pt reports hx of migraines. Pt reports that she saw a neurologist on Monday and was given an injection for her migraines. Pt reports that she did get dizzy this morning and fell and hit her head. Abrasions to the face. Pt is on eliquis 44 no female, long history of chronic migraine, comes in for evaluation with intractable migraine. States it started about 10 days ago and has been persistent holocephalic type migraine headache. Just not gotten any better. She had seen a new neurologist last week and was started on some new medication for the migraine as well as increased dose of her Relpax. She states that nothing really seems to be helping this migraine. She is tried some bfth-[id number]-[id number] stuff as well which does not help. She states she is allergic to Toradol through the IV, it caused tongue swelling. But she is able to take ibuprofen orally. She is on Eliquis. She states she did get up in the middle of the night to go the bathroom and got somewhat dizzy and fell and hit her head. Is complaining of head pain and neck pain. She drove herself to the emergency room today. She was placed in a c-collar in triage. Says she feels though this is her chronic migraine, although unusual in that it seems intractable at this point. PAST MEDICAL HISTORY Diagnosis Date Anxiety and depression GERD (gastroesophageal reflux disease) H/O protein C deficiency H/O protein S deficiency History of DVT (deep vein thrombosis) 10/04/2021 Hypothyroid Malignant melanoma (HCC) Migraines Other specified hypothyroidism 10/04/2021 TMJ (temporomandibular joint disorder) PAST SURGICAL HISTORY Procedure Laterality Date ARTERY TO VEIN SHUNT 06/28/[address] [facility] SECTION SINGLE 1998 COLONOSCOPY SCREENING 01/16/2023 EGD W/O [facility] SPEC VARICIES INJ 01/16/2023 ESOPHAGOGASTRODUODENOSCOPY TRANSORAL DIAGNOSTIC 03/23/2013 EGD HAND SURGERY HX Left trigger finger release 3 rd finger HYSTEROSCOPY, DIAGNOSTIC (SEPARATE 10/18/2021 IR IVC FILTER PLACEMENT 2010 MALIGNANT MELANOMA - WIDE EXCISION IN ANY AREA AND MUST INCLUDE > 1CM MARGINS AND LAYERED CLOSURE TONSILLECTOMY AND ADENOIDECTOMY VAGINAL HYSTERECTOMY 03/08/2022 total FAMILY HISTORY Problem Relation Age of Onset Clotting Disorder Father Protein C and S deficiency No Known Problems Mother Clotting Disorder Paternal Grandfather Anesthesia Problems No Family History Social History Tobacco Use Smoking status: Former Current packs/day: 0.00 Average packs/day: 1 pack/day for 22.0 years (22.0 ttl pk-yrs) Types: Cigarettes Start date: 03/23/1994 Quit date: 03/23/2016 Years since quittin.4 Smokeless tobacco: Never Vaping Use Vaping status: Never Used Substance and Sexual Activity Alcohol use: Not Currently Drug use: Yes Types: Marijuana Comment: Only medical marijuania Sexual activity: Not on file ALLERGIES Allergen Reactions Latex Rash Penicillins Anaphylaxis Tape [Adhesive Tape* Rash Toradol [Ketorolac] Swelling Tongue swelling Review of Systems Physical Exam Vitals [08/25/24 0936] BP Pulse Temp Temp src Resp SpO2 Weight Height 122/69 (!) 98 37 ?C (98.6 ?F) Oral 16 100 % 54.4 kg (120 lb) 1.651 m (5' 5) Physical Exam Vitals reviewed. Constitutional: Comments: Alert, no distress, c-collar in place. Vitals appear stable. HENT: Head: Comments: Small abrasion on the right cheek and the bridge of the nose. No large swelling or deformity noted. No other external signs of head trauma. Pupils are equal and reactive with intact extraocular movements Neck: Comments: She does have some chronic neck pain and is in pain management for that on tizanidine. She does not have any step-offs of the cervical spine and she is left in the c-collar pending radiographs. Cardiovascular: Rate and Rhythm: Normal rate. Pulmonary: Effort: Pulmonary effort is normal. Musculoskeletal: General: Normal range of motion. Right lower leg: No edema. Left lower leg: No edema. Neurological: Comments: She has no focal or lateralized neurologic deficits at this time. Diagnostic Testing ED Labs Ordered and Reviewed - No data to display Procedures ED Course / Clinical Impression Clinical Impressions as of 08/25/24 1309 Migraine headache MDM / Disposition / Plan 10:30 AM: This patient describes intractable headache consistent with her previous migraine history. Now she will need CAT scan imaging of her brain today since she did have a fall, and hit her head, and is on anticoagulation. As far as trying to abort this headache, I would like to try Toradol h (more content not included)... Normal [facility] L803.0600on 08-24-2024 HOMOCYSTEINE 41.7 umol/L Abnormal 0.0-14.5 [facility] Comment on above: Order Comment: Reaso n for Exam: blood clotting, concern for MTHFR mutation Result Comment: Perf ormed at: CB - [facility] [address] [id number] Pharmacy Teacher: Jeffry Schreiber PhD, Phone: [phone] Performed By: #### L 803.0600 ####[facility] [id number] [place], [place], [address] CT SINUS WO IVCONon 08-22-20 CT SINUS WO IVCON * * *Final Report* * * DATE OF EXAM: Aug 22 2024 1:20PM [facility] 0488 - CT SINUS WO IVCON / PROCEDURE REASON: CHRONIC SINUSITIS * * * * Physician Interpretation * * * * EXAMINATION: CT SINUS WO IVCON CLINICAL HISTORY: Chronic sinusitis TECHNIQUE: Spiral high resolution axial unenhanced CT images were obtained through the paranasal sinuses with sagittal, coronal reconstructions. MQ: CTSI_1 CT Radiation dose: Integrated Dose-Length Product (DLP) for this visit = 184.00 mGy*cm. CT Dose Reduction Employed: Automated exposure control (AEC) COMPARISON: None. RESULT: Post-Surgical Findings: None Sinus Chambers: Sinuses are clear. LEFT Blanca Dufur Score: 0 RIGHT Blanca Dufur Score: 0 TOTAL Dixon Felicia Score: 0 Nasal Cavities: Visualized nasal cavities are patent. Developmental Anomalies: None Other: The visualized mastoid air cells and middle ear cavities are clear. The soft tissues of the face and orbits are within normal limits within the limitations of the study. Localizer images: No acute findings. IMPRESSION: No acute findings. The paranasal sinuses are clear. Squeegee Operator: MARK Transcribe Date/Time: Aug 26 2024 9:40A Dictated by : FAVIOLA RIVAS MD This examination was interpreted and the report reviewed and electronically signed by: FAVIOLA RIVAS MD on Aug 26 2024 9:44AM EST [id number] [facility] CNOVon 08-20-2024 CNOV Office Visit ([facility] ) SUHA CALIX ([id number]) 1980 F CHT Date Time Provider Department 08/20/24 1:00 PM MAKENNA GONGORA [facility] During your visit today, we recorded the following information about you: Pulse Blood pressure Weight Height 86/minute 110/77 55.2 kg 1.651 m Makenna Gongora MD 08/20/2024 2:15 PM Signed INITIAL CONSULT - HEADACHE MEDICINE SERVICE DATE: 08/20/2024 Location: [facility] Participants: Patient and Provider Requesting Provider: Member Name Role and Specialty Contact Info Address Comments Rosalina Hilton APRN.CNP Referring [facility] [place] [address] - Recommendations of care will be communicated by shared medical record. Subjective HPI: Suha Calix is a 44 year old year old female with a chief complaint of headache. Daily headaches for the last 15 years. Headache Description: Severity: 20 days a month are severe, rest are mild to moderate Duration of attacks: almost constant Frequency: daily for the last 15 years Aura: no Location: bilateral. Occipital and sometimes maxillary Quality: pressure and throbbing Triggers: heat, certain neck positional Date of onset: teenager Most common time of the day: anytime Associated symptoms: Nausea: yes Vomiting: yes Photophobia: yes Phonophobia: yes Vision Changes: no Vertigo: off balance sometimes Neck pain: yes Tinnitus: no Sinus Symptoms: no Autonomic Symptoms: no Worsens with simple activity: yes Avoidance of activity: yes Head pain change/trigger by valsalva maneuvers: no Positional headache: no Family hx of headaches: no Prior Treatments: [facility] Outpatient Medications as of 08/20/2024 Medication Sig azithromycin (ZITHROMAX) 250 mg tablet Take 2 tablets by mouth once daily for 1 day, THEN 1 tablet once daily for 4 days. ondansetron orally disintegrating (ZOFRAN ODT) 4 mg disintegrating tablet Take 1 tablet by mouth every 8 hours as needed for nausea/vomiting. levothyroxine (SYNTHROID) 125 mcg tablet Take 1 tablet by mouth once daily. amitriptyline (ELAVIL) 10 mg tablet Take 20 mg by mouth daily at bedtime. eletriptan (RELPAX) 20 mg tablet Take 1 tablet (20 mg) by mouth as needed for migraine headache (see administration instructions). may repeat in 2 hours if necessary apixaban (ELIQUIS) 5 mg tab(s) Take 1 tablet by mouth two times a day. tiZANidine (ZANAFLEX) 4 mg tablet Take 0.5-1 tablets by mouth three times a day as needed (muscle spasms). pantoprazole DR (PROTONIX) 40 mg tablet Take 1 tablet by mouth once daily. topiramate (TOPAMAX) 100 mg tablet Take 1 tablet by mouth two times a day. dicyclomine (BENTYL) 20 mg tablet TAKE ONE TABLET BY MOUTH THREE TIMES A DAY NEEDED FOR ABDOMINAL PAIN polyethylene glycol 3350 (MIRALAX, GLYCOLAX) 17 gram/dose powder Take 17 g by mouth once daily. gabapentin (NEURONTIN) 100 mg capsule Take 2 capsules by mouth daily at bedtime for 30 days. ergocalciferol 50,000 unit capsule (VITAMIN D2, DRISDOL) Take 1 capsule by mouth one time a week. Use as directed. fluticasone (FLONASE) 50 mcg/actuation nasal spray USE 1 SPRAY IN EACH NOSTRIL ONCE DAILY No current facility-administered medications on file as of 08/20/2024. Current medications review: 1.Eletriptan 20 mg helps. 2.Gabapentin 200 mg HS- helps the neck pain, given by pain clinic 3.Amitriptyline 10 mg-for 2 month, no benefit 4.Topiramate 100 mg BID for 20 years. 5.OTC analgesics unsure of amount PAST MEDICAL HISTORY Diagnosis Date Anxiety and depression GERD (gastroesophageal reflux disease) H/O protein C deficiency H/O protein S deficiency History of DVT (deep vein thrombosis) 10/04/2021 Hypothyroid Malignant melanoma (HCC) Migraines Other specified hypothyroidism 10/04/2021 ALLERGIES Allergen Reactions Latex Rash Penicillins Anaphylaxis Tape [Adhesive Tape* Rash Toradol [Ketorolac] Swelling Tongue swelling Chart/data review: 1.Images and report of MRI C spine : no significant canal stenosis or disc bulging. 2.Images CT brain 04/2024, no report, images look grossly intact. Social History Tobacco Use Smoking status: Former Current packs/day: 0.00 Average packs/day: 1 pack/day for 22.0 years (22.0 ttl pk-yrs) Types: Cigarettes Start date: 03/23/1994 Quit date: 03/23/2016 Years since quittin.4 Smokeless tobacco: Never Vaping Use Vaping status: Never Used Substance Use Topics Alcohol use: Not Currently Drug use: Yes Types: Marijuana Comment: Only medical marijuania FAMILY HISTORY Problem Relation Age of Onset Clotting Disorder Father Protein C and S deficiency No Known Problems Mother Clotting Disorder Paternal Grandfather Anesthesia Problems No Family History Review of systems: GENERAL: no fevers or irritability. HE (more content not included)... Normal [facility] CNOVon 08-16-2024 CNOV Office Visit ([facility] ) SUHA CALIX ([id number]) 1980 F CHT Date Time Provider Department 08/16/24 6:45 [facility] During your visit today, we recorded the following information about you: Temperature Pulse Respiration Blood pressure 99.2 degrees 62/minute 14/minute 114/79 Weight 55.3 kg Adalberto Bryant MD 08/16/2024 7:11 PM Signed Suha Calix is a 44 year old female who presents with Headache (Headache, sinus congestion, face,neck and jaw discomfort for 2 days - Patient concern for a sinus infection - OTC Ibuprofen, Sudafed, NyQuil, Venessa Selzer ) 44-year-old patient presented here complaining of sinus pressure and pain denies any fevers or chills no other complaint. PAST MEDICAL HISTORY Diagnosis Date Anxiety and depression DVT (deep venous thrombosis) (HCC) GERD (gastroesophageal reflux disease) H/O protein C deficiency H/O protein S deficiency History of DVT (deep vein thrombosis) 10/04/2021 Hypothyroid Malignant melanoma (HCC) Melanoma (HCC) Migraines Other specified hypothyroidism 10/04/2021 ACTIVE PROBLEM LIST H/O Protein C Deficiency H/O Protein S Deficiency Migraine Malignant Melanoma (Hcc) History of Dvt (Deep Vein Thrombosis) Hypothyroidism Neck Pain Right Leg Pain Left Leg Pain Myofascial Pain Syndrome Uti Symptoms Abdominal Pain Chronic Pain Syndrome Sacroiliitis (Hcc) Acute Right-Sided Low Back Pain With Right-Sided Sciatica Encounter for Screening Mammogram for Breast Cancer Adjustment Disorder With Mixed Anxiety and Depressed Mood Headaches Hypothyroidism, Unspecified Hair Thinning Brittle Nails 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 30 tablet 5 gabapentin (NEURONTIN) 100 mg capsule Take 2 capsules by mouth daily at bedtime for 30 days. 60 capsule 0 levothyroxine (SYNTHROID) 125 mcg tablet Take 1 tablet by mouth once daily. 90 tablet 0 amitriptyline (ELAVIL) 10 mg tablet Take 20 mg by mouth daily at bedtime. eletriptan (RELPAX) 20 mg tablet Take 1 tablet (20 mg) by mouth as needed for migraine headache (see administration instructions). may repeat in 2 hours if necessary 10 tablet 5 apixaban (ELIQUIS) 5 mg tab(s) Take 1 tablet by mouth two times a day. 180 tablet 1 tiZANidine (ZANAFLEX) 4 mg tablet Take 0.5-1 tablets by mouth three times a day as needed (muscle spasms). [address] (PROTONIX) 40 mg tablet Take 1 tablet by mouth once daily. 90 tablet 1 topiramate (TOPAMAX) 100 mg tablet Take 1 tablet by mouth two times a day. 180 tablet 1 ergocalciferol 50,000 unit capsule (VITAMIN D2, DRISDOL) Take 1 capsule by mouth one time a week. Use as directed. 12 capsule 1 dicyclomine (BENTYL) 20 mg tablet TAKE ONE TABLET BY MOUTH THREE TIMES A DAY NEEDED FOR ABDOMINAL PAIN 270 tablet 1 polyethylene glycol 3350 (MIRALAX, GLYCOLAX) 17 gram/dose powder Take 17 g by mouth once daily. 510 g 4 predniSONE (DELTASONE) 20 mg tablet Take 1 tablet by mouth three times a day for 3 days. 9 tablet 0 azithromycin (ZITHROMAX) 250 mg tablet Take 2 tablets by mouth once daily for 1 day, THEN 1 tablet once daily for 4 days. 6 tablet 0 fluticasone (FLONASE) 50 mcg/actuation nasal spray USE 1 SPRAY IN EACH NOSTRIL ONCE DAILY 16 mL 1 No current facility-administered medications for this visit. Social History Tobacco Use Smoking status: Former Current packs/day: 0.00 Average packs/day: 1 pack/day for 22.0 years (22.0 ttl pk-yrs) Types: Cigarettes Start date: 03/23/1994 Quit date: 03/23/2016 Years since quittin.4 Smokeless tobacco: Never Vaping Use Vaping status: Never Used Substance Use Topics Alcohol use: Not Currently Drug use: Yes Types: Marijuana Comment: Only medical marijuania Alcohol Use: Not Currently Tobacco Use: Types: Cigarettes FAMILY HISTORY Problem Relation Age of Onset Clotting Disorder Father Protein C and S deficiency No Known Problems Mother Clotting Disorder Paternal Grandfather Anesthesia Problems No Family History Review of Systems HENT: Positive for congestion. All other systems reviewed and are negative. BP 114/79 Pulse 62 Temp (Src) 99.2 (Temporal) Resp 14 Wt 122 lb (55.3kg) SpO2 100% LMP 03/08/2022 Physical Exam Vitals and nursing note reviewed. Constitutional: Appearance: Normal appearance. HENT: Head: Normocephalic and atraumatic. Ears: Comments: Pain on percussion the maxillary and frontal sinuses Nose: Rhinorrhea present. Mouth/Throat: Mouth: Mucous membranes are moist. Eyes: Extraocular Movements: Extraocular movements intact. Conjunctiva/sclera: Conjunctivae normal. Pupils: Pupils are equal, round, and r (more content not included)... Normal [facility] MR/BMS.Xiao 08-14-2024 [facility] [address] [place] [address] OFFICE VISIT Date of Service: 08/14/24 MR#: [id number] Acct: [id number] Name: SUHA CALIX Rep #: [id number] : 1980 Provider: PRAVEENA Berry Age/Sex: 44/F Location: [facility] Status: Signed Intake Vital Signs 07/11/23 08:21 07/31/24 07:28 08/14/24 09:53 Height 5 ft 4 in 5 ft 4 in Weight: 120 lb BP 120/79 Blood Pressure Location Lt brachial Position Sitting Respiration 16 Pulse 88 Pulse Source Monitor Temp 98.2 F Temp Source Temporal Pulse Oximetry (%) 98 Oxygen Delivery Method room air Intake Visit Reasons: POST VENOGRAM Chief Complaint: f/u Is patient in pain?: Yes Allergies Penicillins Allergy (Severe, Verified 08/14/24 09:56) Hives ketorolac (From Toradol) Allergy (Intermediate, Verified 08/14/24 09:56) Swelling latex Allergy (Verified 08/14/24 09:56) Hives Medications ???Medication ???Instructions ???Recorded ???Confirmed ???Type apixaban 5 mg tablet (Eliquis) 5 mg PO BID 06/02/22 08/14/24 History eletriptan 20 mg tablet See Rx Instructions PO .COMPLEX 06/02/22 08/14/24 History ibuprofen 600 mg tablet 600 mg PO TID 06/02/22 08/14/24 History levothyroxine 112 mcg capsule 112 mcg PO DAILY 06/02/22 08/14/24 History pantoprazole 40 mg tablet,delayed 40 mg PO DAILY 06/02/22 08/14/24 History release polyethylene glycol 3350 17 4 g PO DAILY 06/02/22 08/14/24 History gram/dose oral powder (Miralax) tizanidine 4 mg tablet 4 mg PO QHS 06/02/22 08/14/24 History topiramate 100 mg tablet 100 mg PO BID 06/02/22 08/14/24 History amitriptyline 10 mg tablet 20 mg PO QHS 07/05/24 08/14/24 History aspirin 81 mg tablet,delayed 81 mg PO QDAY 07/05/24 08/14/24 History release (Adult Low Dose Aspirin) gabapentin 100 mg capsule 100 mg PO QHS 07/05/24 08/14/24 History Is last menstrual period known: Yes Post menopausal: No Patient : No Have you fallen in the past year?: Yes PFSH Medical History Malignant melanoma H/O protein S deficiency H/O protein C deficiency Hypothyroidism GERD (gastroesophageal reflux disease) Anxiety Surgical History H/O local excision of skin lesion H/O adenoidectomy H/O: H/O superior vena cava filter placement H/O: hysterectomy Family History Father Bleeding disorder Heart disease Social History Smoking Status: Former smoker substance use type: does not use do you feel safe at home: Yes HPI HPI HPI: SUHA CALIX, is a 44 F who presents to the office today for follow-up s/p venogram. Venogram revealed patent stents with no evidence of restenosis, no intervention was needed. No issues at the access site. She has not noticed any new/worsening lower extremity edema or pain. At last OV, she had been experiencing palpitations/tachycardia and having episodes of lightheadedness and a couple episodes of syncope. These episodes are still occurring intermittently. She has completed an echo and heart monitor. She did have a few triggers with her heart monitor and was in sinus rhythm each time, no significant arrhythmias noted. Her echo showed trivial mitral valve regurgitation and no other abnormalities. She has since established with a new PCP at [facility] in [place], sees them again in several weeks. She does have concern for MTHFR mutation due to family history and would like to be tested for this if possible. She does have known Protein C S deficiency for which she is chronically anticoagulated. ROS General General: Yes weight change, appetite, fatigue and weakness; No colon cancer or breast cancer HEENT HEENT: Yes swollen glands and hoarseness; No difficulty swallowing, eye injury or eye surgery Endo Endocrine: Yes thyroid disease; No diabetes mellitus, thyroid cancer, Hair loss, heat intolerance or cold intolerance Skin Skin: No rash or changing moles Musc Musculoskeletal: Yes back problems, arthritis and joint pain; No rheumatoid arthritis or gout Cardio Cardiovascular: No murmur, pacemaker, heart disease, atrial fibrillation, high blood pressure, heart attack, heart stent, palpitations, shortness of breat with exertion or chest pain Psych Psychiatric: Yes anxiety; No depression or hearing voices Resp Respiratory: No shortness of breath, No sleep apnea, Yes cough, No COPD, No asthma, No emphysema and No wheezing Gastro Gastrointestinal: No abdominal pain, No nausea or vomiting, No diarrhea, No constipation, No blood in stool, Yes acid reflux, No hemorrhoids, No ulcers, No gallbladder p (more content not included)... Normal [facility] Basic Metabolic Profile (BMP )on 07-31-2024 BUN/CRE 14.3 RATIO Normal - [facility] Comment on above: Performed By: #### L 500.2500, L100.0500 #### [facility] Laboratory [address] [place], [address] CA,Total 8.8 mg/dL Normal 8.5-10.1 [facility] Comment on above: Performed By: #### L 500.2500, L100.0500 #### [facility] [address] [place], [address] Chloride [Moles/Vol] 112 mmol/L High 98-107 [facility] Comment on above: Performed By: #### L 500.2500, L100.0500 #### [facility] [address] [place], [address] CO2 [Moles/Vol] 24.0 mmol/L Normal 21.0-32.0 [facility] Comment on above: Performed By: #### L 500.2500, L100.0500 #### [facility] [address] [place], [address] Creatinine [Mass/Vol] 0.84 mg/dL Normal 0.55-1.02 [facility] Comment on above: Result Comment: The validity of the calculated GFR GFRAA in patients over 70 years has not been determined. Clinical correlation is essential. Performed By: #### L 500.2500, L100.0500 #### [facility] [address] [place], [address] ECRCL 71.46 ml/min Normal [facility] Comment on above: Performed By: #### L 500.2500, L100.0500 #### [facility] [address] [place], [address] EST GFR - AA 94 mL/min Normal >60 [facility] Comment on above: Result Comment: Afri can Liberian GFR Calc Performed By: #### L 500.2500, L100.0500 #### [facility] [address] [place], [address] GAP 7 Normal 5-15 [facility] Comment on above: Performed By: #### L 500.2500, L100.0500 #### [facility] [address] [place], [address] GFR/1.73 sq M.predicted among non-blacks MDRD (S/P/Bld) [Vol rate/Area] 78 mL/min/{1.73_m2} Normal >60 [facility] Comment on above: Result Comment: Non- GFR Calc Performed By: #### L 500.2500, L100.0500 #### [facility] [address] [place], [address] Glucose [Mass/Vol] 93 mg/dL Normal 74-106 [facility] Comment on above: Performed By: #### L 500.2500, L100.0500 #### [facility] [address] [place], [address] Potassium [Moles/Vol] 3.6 mmol/L Normal 3.5-5.1 [facility] Comment on above: Performed By: #### L 500.2500, L100.0500 #### [facility] [address] [place], [address] Sodium [Moles/Vol] 143 mmol/L Normal 136-145 [facility] Comment on above: Performed By: #### L 500.2500, L100.0500 #### [facility] [address] [place], [address] Urea nitrogen [Mass/Vol] 12 mg/dL Normal 7-18 [facility] Comment on above: Performed By: #### L 500.2500, L100.0500 #### [facility] [address] [place], [address] CBC-Complete Blood Cnt No Di ffon 07-31-2024 Erythrocyte distribution width (RBC) [Ratio] 13.3 % Normal 11.6-14.6 [facility] Comment on above: Performed By: #### L 500.2500, L100.0500 #### [facility] [address] [place], [address] Hematocrit (Bld) [Volume fraction] 41.8 % Normal 37-47 [facility] Comment on above: Performed By: #### L 500.2500, L100.0500 #### [facility] [address] [place], [address] Hemoglobin (Bld) [Mass/Vol] 13.3 g/dL Normal 12.0-15.0 [facility] Comment on above: Performed By: #### L 500.2500, L100.0500 #### [facility] [address] [place], [address] MCH (RBC) [Entitic mass] 30.2 pg Normal 27.0-32.0 [facility] Comment on above: Performed By: #### L 500.2500, L100.0500 #### [facility] [address] [place], [address] MCHC (RBC) [Mass/Vol] 31.8 g/dL Low 32-36 [facility] Comment on above: Performed By: #### L 500.2500, L100.0500 #### [facility] [address] [place], [address] MCV (RBC) [Entitic vol] 95.0 fL Normal 81-99 [facility] Comment on above: Performed By: #### L 500.2500, L100.0500 #### [facility] [address] [place], [address] Platelet mean volume (Bld) [Entitic vol] 9.5 fL Normal 6.2-12.0 [facility] Comment on above: Performed By: #### L 500.2500, L100.0500 #### [facility] [address] [place], [address] Platelets (Bld) [#/Vol] 257 10*3/uL Normal 150-450 [facility] Comment on above: Performed By: #### L 500.2500, L100.0500 #### [facility] [address] [place], [address] RBC (Bld) [#/Vol] 4.40 10*6/uL Normal 4.2-5.4 [facility] Comment on above: Performed By: #### L 500.2500, L100.0500 #### [facility] [address] [place], [address] RDW SD 46.8 fl High 35.1-43.9 [facility] Comment on above: Performed By: #### L 500.2500, L100.0500 #### [facility] [address] [place], [address] WBC (Bld) [#/Vol] 5.5 10*3/uL Normal 4.4-11.0 [facility] Comment on above: Performed By: #### L 500.2500, L100.0500 #### [facility] [address] [place], [address] Operative Reporton 4 Operative Report [facility] Medical Records Department [address] [place] [address] Operative Report 07/31/24 1722 MR#: [id number] Acct: [id number] Name: SUHA CALIX Rep #: [id number] : 1980 44 From: Harshad Sauceda MD PCP: Dr. Jenna Ramos, DO Status:[facility] Location: [facility] Report of Operation Date of Procedure: 07/31/24 Pre-Operative Diagnosis: Prior left iliac vein stenting Post-Operative Diagnosis: Same Surgery/Procedure Performed:: Venogram inferior vena cava Intravascular ultrasound of the inferior vena cava, left common iliac vein, left external iliac vein Surgeon: Harshad Sauceda Type of Anesthesia: Local and Sedation,Conscious Estimated Blood Loss (mL): 3 Description of Procedure: HPI: Patient is a 44-year-old female with multiple deep venous thromboses and history of factor C S deficiency, prior IVC filter placement, and left iliac vein stenting that was performed 1 year prior. She has had recurrence of left lower extremity discomfort and her venous duplex revealed patent stent but with abnormal flow pattern so she is taken now for venogram to further assess. Description of procedure: Upon obtaining informed consent and verification correct patient procedure site patient was taken to the [facility] where she was positioned prepped and draped in usual sterile fashion. Timeouts performed conscious sedation administered Versed and fentanyl. Skin overlying the left common femoral vein was anesthetized 1% lidocaine the vessel accessed under ultrasound guidance with a micropuncture needle and wire. This was then exchanged for micropuncture sheath routine injection ilio caval venogram was performed revealing patent stent with brisk contrast transit and no significant collateral branches. This also revealed brisk contrast transit across the vena cava and the IVC filter which appeared to be patent. Bentson wire was then advanced and the micropuncture sheath exchanged for an 8 Polish sheath through which an intravascular ultrasound probe was advanced and recorded pullback performed of the IVC, left common iliac vein, left external iliac vein. This revealed widely patent IVC filter with no evidence of any stenosis or entrapped thrombus. This also revealed satisfactory iliac vein stent with no residual compression, no intimal hyperplasia or in-stent restenosis, and satisfactory transition to normal vessel above and below the stent. Seeing no lesions that required treatment the wire and catheter then withdrawn. The sheath was then withdrawn and manual pressure held for 5 minutes until hemostasis was obtained. Patient was then taken to the cover area for bedrest prior to discharge to home. 07/31/24 1726 Cosigner Signature (if applicable): CC: Dr. Harshad Sauceda MD; Dr. Jenna Ramos DO Signed Normal [facility] Basic Metabolic Profile (BMP )on 07-25-2024 BUN/CRE 16.0 RATIO Normal - [facility] Comment on above: Performed By: #### L 501.9520, L503.0105, L500.2500 #### [facility] [address] [place], [address] CA,Total 8.9 mg/dL Normal 8.5-10.1 [facility] Comment on above: Performed By: #### L 501.9520, L503.0105, L500.2500 #### [facility] [address] [place], [address] Chloride [Moles/Vol] 113 mmol/L High 98-107 [facility] Comment on above: Performed By: #### L 501.9520, L503.0105, L500.2500 #### [facility] [address] [place], [address] CO2 [Moles/Vol] 20.0 mmol/L Low 21.0-32.0 [facility] Comment on above: Performed By: #### L 501.9520, L503.0105, L500.2500 #### [facility] [address] [place], [address] Creatinine [Mass/Vol] 0.69 mg/dL Normal 0.55-1.02 [facility] Comment on above: Result Comment: The validity of the calculated GFR GFRAA in patients over 70 years has not been determined. Clinical correlation is essential. Performed By: #### L 501.9520, L503.0105, L500.2500 #### [facility] [address] [place], [address] EST GFR - AA 119 mL/min Normal >60 [facility] Comment on above: Result Comment: Afri can Liberian GFR Calc Performed By: #### L 501.9520, L503.0105, L500.2500 #### [facility] [address] [place], [address] GAP 7 Normal 5-15 [facility] Comment on above: Performed By: #### L 501.9520, L503.0105, L500.2500 #### [facility] [address] [place], [address] GFR/1.73 sq M.predicted among non-blacks MDRD (S/P/Bld) [Vol rate/Area] 98 mL/min/{1.73_m2} Normal >60 [facility] Comment on above: Result Comment: Non- GFR Calc Performed By: #### L 501.9520, L503.0105, L500.2500 #### [facility] [address] [place], [address] Glucose [Mass/Vol] 102 mg/dL Normal 74-106 [facility] Comment on above: Result Comment: Fast ing Glucose result from 100 to 125 mg/dL suggests IMPAIRED HOMEOSTASIS per A.D.A. criteria. Performed By: #### L 501.9520, L503.0105, L500.2500 #### [facility] [address] [place], [address] Potassium [Moles/Vol] 4.0 mmol/L Normal 3.5-5.1 [facility] Comment on above: Performed By: #### L 501.9520, L503.0105, L500.2500 #### [facility] [address] [place], [address] Sodium [Moles/Vol] 140 mmol/L Normal 136-145 [facility] Comment on above: Performed By: #### L 501.9520, L503.0105, L500.2500 #### [facility] [address] [place], [address] Urea nitrogen [Mass/Vol] 11 mg/dL Normal 7-18 [facility] Comment on above: Performed By: #### L 501.9520, L503.0105, L500.2500 #### [facility] Laboratory [address] [place], [address] Echo Completeon 07-25-2024 Echo Complete [facility] [address] [place] [address] Echo Complete 07/25/24 0908 MR#: [id number] Acct: [id number] Name: SUHA CALIX Rep #: [id number] : 1980 44 From: Emiliano Stone MD Attending Dr: PRAVEENA Berry Status: REG CLI Ordering Dr: Tiara Sue Date: 07/25/24 Location: [facility] Sex: F C Admitted: Reason For Study: PALPITATIONS/SOB Procedure This was a 2D Doppler, Color Flow transthoracic echocardiogram. Exam performed in department. Left Ventricle Normal LV size. The estimated ejection fraction is 70 %. No evidence for diastolic dysfunction. No regional wall motion abnormalities noted. Right Ventricle Normal RV size. Normal systolic function. Atria The left and right atria are normal. No doppler evidence for ASD. Mitral Valve There is no mitral valve stenosis. Trivial mitral valve insufficiency. Tricuspid Valve There is no tricuspid stenosis. Trivial tricuspid valve insufficiency. Unable to estimate RV systolic pressure due to insufficient tricuspid regurgitant envelope. Aortic Valve Trisinus/trileaflet aortic valve. There is no aortic stenosis. No aortic valve insufficiency. Pulmonic Valve There is no pulmonic valvular stenosis. No pulmonic valve insufficiency. Great Vessels Normal aortic root. Pericardium/Pleural No pericardial effusion. MMode/2D Measurements Calculations LVIDd: 4.3 cm IVSd: 0.97 cm LVOT diam: 2.0 cm LVIDs: 2.5 cm LVPWd: 0.91 cm LVOT area: 3.1 cm2 RVDd: 3.5 cm FS: 41.0 % asc Aorta Diam: 2.9 cm LAV(MOD-bp): 25.8 ml LVAd ap4: 19.9 cm2 LAV(MOD-bp) Indexed: 16.4 ml/m2 LVLd ap4: 6.7 cm LAV(MOD-sp2): 25.0 ml EDV(MOD-sp4): 47.8 ml LAV(MOD-sp4): 26.6 ml EDV(sp4-el): 50.2 ml LVAs ap4: 9.7 cm2 LVLs ap4: 5.2 cm ESV(MOD-sp4): 15.1 ml ESV(sp4-el): 15.4 ml EF(MOD-sp4): 68.5 % EF(sp4-el): 69.3 % LVAd ap2: 20.3 cm2 SV(MOD-sp4): 32.7 ml SV(MOD-sp2): 36.4 ml LVLd ap2: 6.8 cm EDV(MOD-sp2): 48.5 ml EDV(sp2-el): 51.4 ml LVAs ap2: 8.8 cm2 LVLs ap2: 5.2 cm ESV(MOD-sp2): 12.1 ml ESV(sp2-el): 12.6 ml EF(MOD-sp2): 75.1 % SV(sp4-el): 34.8 ml Ao sinus diam: 3.[address] Junction: 2.6 cm LA dimension(2D): 3.2 cm LA A4 area: 11.4 cm2 RA A4 area: 10.9 cm2 TAPSE: 1.8 cm Time Measurements MV dec time: 0.24 sec Doppler Measurements Calculations MV E max gloria: 87.7 cm/sec Lat Peak E' Gloria: 12.7 cm/sec Med Peak E' Gloria: 12.3 cm/sec MV A max gloria: 59.5 cm/sec E/E' lat: 6.9 E/E' med: 7.1 MV E/A: 1.5 MV dec slope: 363.3 cm/sec2 Ao V2 max: 90.0 cm/sec LV V1 max: 85.1 cm/sec Ao max P.2 mmHg LV V1 max P.9 mmHg Ao V2 mean: 64.6 cm/sec LV V1 mean P.5 mmHg Ao mean P.8 mmHg LV V1 mean: 57.5 cm/sec Ao V2 VTI: 18.6 cm LV V1 VTI: 18.9 cm AV (velocity ratio): 1.0 MATTHEW(I,D): 3.2 cm2 MATTHEW(V,D): 3.0 cm2 SV(LVOT): 59.4 ml PA V2 max: 73.3 cm/sec TR max gloria: 176.7 cm/sec PA max PG (full): 0.82 mmHg TR max P.5 mmHg ECHO/Echo Complete Interpretation Summary The estimated ejection fraction is 70 %. No evidence for diastolic dysfunction. Trivial mitral valve insufficiency. Ordering Physician: Tiara Sue Referring Physician: Tiara Sue Performed By: Rozina Glynn RDCS 07/25/24 1341 Date Emiliano Stone MD CC: PRAVEENA Berry; JENNADEREK RAMOS Date Dictated: 07/25/24 0908 Date Transcribed: 07/25/24 1341 [employer] Operator: Signed Normal [facility] Thyroid Stim Hormone (TSH)on 07-25-2024 TSH 0.819 uIU/mL Normal 0.358-3.74 0 [facility] Comment on above: Performed By: #### L 501.9520, L503.0105, L500.2500 #### [facility] Laboratory [address] [place], [address] Venous Duplex US, Unilateral on 07-25-2024 Venous Duplex US, Unilateral [facility] [address] [place] [address] Venous Duplex US, Unilateral 07/25/24 0839 MR#: [id number] Acct: [id number] Name: SUHA CALIX Rep #: [id number] : 1980 44 From: Harshad Sauceda MD Attending Dr: PRAVEENA Berry Status: REG CLI Ordering Dr: Tiara Sue Date: 07/25/24 Location: [facility] Sex: F C Admitted: Reason For Study: LLE PAIN RIGHT LEFT CFV is compressible, spontaneous, phasic, CFV is patent and compressible. competent and demonstrates normal CFV demonstrates wall thickening and reflux augmentation. >1.0 sec. Procedure FV patent and compressible. This is a venous duplex using B-mode, color FV demonstrates wall thickening and refulx > flow and spectral Doppler. 1.0 sec. Exam performed in department. POPV patent and compressible. Image #13 is the LT CFV. POPV demonstrated reflux > 1.0 sec. SFJ is competent and measures 0.79 cm. GSV proximal thigh measures 0.38 x 0.34 cm. GSV at knee measures 0.42 x 0.36 cm. GSV is competent throughout. SSV at junction is competent and measures 0.62 x 0.54 cm. VL/Venous Duplex US, Unilateral Interpretation Summary Deep veins of the left lower extremity are patent and compressible segmentally. There is no evidence of left lower extremity deep vein thrombosis. The left great saphenous vein appears patent and compressible segmentally. Positive for reflux in the left common femoral vein, femoral vein, popliteal vein. Ordering Physician: Tiara Sue Referring Physician: OTD Performed By: Miroslava Nicholson, MAXWELL, RVT 07/25/24 1156 Date Harshad Sauceda MD CC: PRAVEENA Berry; JENNA RAMOS Date Dictated: 07/25/24838 Date Transcribed: 07/25/241155 [employer] Operator: Signed Normal [facility] Vitamin B12on 07-25-2024 Cobalamin (Vitamin B12) [Mass/Vol] 517 pg/mL Normal 211-911 [facility] Comment on above: Performed By: #### L 501.9520, L503.0105, L500.2500 #### [facility] Laboratory [address] [place], [place], [address] BD DXA - AXIAL SKELETONon BD DXA - AXIAL SKELETON * * *Final Report* * * DATE OF EXAM: Jul 24 2024 9:08AM UDB 0804 - BD DXA - AXIAL SKELETON / PROCEDURE REASON: multiple diagnoses * * * * Physician Interpretation * * * * EXAMINATION: DXA BONE DENSITOMETRY BD DXA - AXIAL SKELETON PATIENT DEMOGRAPHICS: Age: 44 years, Gender: Female SCANNER INFORMATION: DXA Model: [facility] [employer] [id number] Date Scanned: 07/24/2024 9:08 AM CLINICAL HISTORY: DIAGNOSTIC Acquired hypothyroidism 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 H/O protein C deficiency H/O protein S deficiency. RISK FACTORS FOR OSTEOPOROSIS AND ASSOCIATED FRACTURES REPORTED BY THIS PATIENT: Please refer to Bone Health Questionnaire in the EMR CURRENT THERAPY: Please refer to Bone Health Questionnaire in the EMR TECHNICAL LIMITATIONS: Degenerative disease of the spine RESULTS: Lumbar Spine (L1, L2, L3, L4): Total BMD: 1.000 g/cm2, T-score: -1.5 , Z-score: -1.5 Left Femoral Neck: 0.850 g/cm2, T-score -1.4, Z-score -0.8 Left Total Hip: 1.032 g/cm2, T-score 0.2 , Z-score 0.5 No comparison data - the patient has not had a previous bone density in the [employer] or the previous bone density was performed on a different DXA machine (new, updated model or different location) within the [employer]. VERTEBRAL FRACTURE ASSESSMENT Not performed. TRABECULAR BONE ASSESSMENT TBS not performed: TBS software is not available on this DXA scanner IMPRESSION: THE LOWEST T-SCORE IS -1.5 IN THE SPINE 1) DIAGNOSIS (based on BMD alone): OSTEOPENIA Caution: Medical conditions other than osteoporosis may cause low bone density, such as osteomalacia or renal osteodystrophy. Clinical correlation is necessary. 2) FRACTURE RISK ( Based on FRAX) 10-year absolute fracture risk: - major osteoporotic fracture = 2.8 % - hip fracture = 0.2 % - A diagnosis of Osteoporosis, a 10 year probability of hip fracture greater than or equal to 3% or a 10 year probability of any major osteoporosis-related fracture greater than or equal to 20% should be considered for treatment. - DXA scanner generated FRAX calculations may slightly differ from online FRAX calculations due to differences in software versions. - All recommendations and calculations are to be considered as guidelines and should not replace sound clinical judgement - Caution: Fracture risk may be increased independent of BMD in patients with corticosteroid use, age greater than 65 years, or a history of prior fragility fracture. RECOMMENDATIONS: Follow-up in 2 years or as clinically indicated. Patients that are taking corticosteroids, are transplant recipients or have hyperparathyroidism should have annual follow-up. Follow-up scans should always be done on the same machine for accurate comparison. FOR MORE INFORMATION ABOUT DIAGNOSIS AND TREATMENT: [facility] Center for Osteoporosis and Metabolic Bone Disease:? www.ccf.org/arthritis/osteo National Osteoporosis Foundation:? www.nof.org International Society of Clinical Densitometry www.iscd.org [employer] Operator: BERTHA Transcribe Date/Time: Jul 24 2024 9:08A Dictated by : JALYN MCKEON MD This examination was interpreted and the report reviewed and electronically signed by: JALYN MCKEON MD on Jul 24 2024 9:41AM EST [id number] [facility] 07-24-2024 [facility] Telephone ([facility]) SUHA CALIX ([id number]) 1980 F T Date Time Provider Department 07/24/24 DWAYNE MCDANIEL [facility] During your visit today, we recorded the following information about you: Dwayne Mcdaniel MD 07/24/2024 10:54 AM Signed Tried to call patient to discuss bone density scan was unable to leave voicemail as mailbox is full. Tried 2 times. Patient has Osteopenia and needs to take vitamin D (800 units daily )and calcium(1000 to 1200 mg daily) supplements . Increase weightbearing exercise for at least 30 minutes on most days of the week Suha Gordon MA 07/24/2024 4:39 PM Signed VM is full - unable to leave message Will try again in the morning when back in office . HANNA Franklin Heather, MA 07/25/2024 7:50 AM Signed Patient advised and voiced understanding Suha Gordon MA Allergies As of Date: 07/24/2024 Noted Allergy Reaction LATEX 03/16/2021 2 - Rash PENICILLINS 03/16/2021 10 - Anaphylaxis TAPE (ADHESIVE TAPE-SILICONES) 06/15/2022 2 - Rash TORADOL (KETOROLAC) 03/16/2021 7 - Swelling Comments: Tongue swelling Date Reviewed: 07/16/2024 Reviewed by: Dwayne Mcdaniel MD - Fully Assessed Prescriptions as of 07/25/2024 - ondansetron orally disintegrating (ZOFRAN ODT) 4 mg disintegrating tablet Take 1 tablet by mouth every 8 hours as needed for nausea/vomiting. - gabapentin (NEURONTIN) 100 mg capsule Take 2 capsules by mouth daily at bedtime for 30 days. - levothyroxine (SYNTHROID) 125 mcg tablet Take 1 tablet by mouth once daily. - amitriptyline (ELAVIL) 10 mg tablet Take 20 mg by mouth daily at bedtime. - eletriptan (RELPAX) 20 mg tablet Take 1 tablet (20 mg) by mouth as needed for migraine headache (see administration instructions). may repeat in 2 hours if necessary - apixaban (ELIQUIS) 5 mg tab(s) Take 1 tablet by mouth two times a day. - tiZANidine (ZANAFLEX) 4 mg tablet Take 0.5-1 tablets by mouth three times a day as needed (muscle spasms). - pantoprazole DR (PROTONIX) 40 mg tablet Take 1 tablet by mouth once daily. - topiramate (TOPAMAX) 100 mg tablet Take 1 tablet by mouth two times a day. - ergocalciferol 50,000 unit capsule (VITAMIN D2, DRISDOL) Take 1 capsule by mouth one time a week. Use as directed. - dicyclomine (BENTYL) 20 mg tablet TAKE ONE TABLET BY MOUTH THREE TIMES A DAY NEEDED FOR ABDOMINAL PAIN - fluticasone (FLONASE) 50 mcg/actuation nasal spray USE 1 SPRAY IN EACH NOSTRIL ONCE DAILY - polyethylene glycol 3350 (MIRALAX, GLYCOLAX) 17 gram/dose powder Take 17 g by mouth once daily. Problem List As Of Date 07/24/2024 Noted Resolved H/O protein C deficiency [Z86.2] H/O protein S deficiency [Z86.2] Migraine [G43.909] Malignant melanoma (HCC) [C43.9] History of DVT (deep vein thrombosis) [Z86.718] 10/04/2021 Hypothyroidism [E03.9] 04/26/2021 Neck pain [M54.2] 06/14/2022 Right leg pain [M79.604] 06/14/2022 Left leg pain [M79.605] 06/14/2022 Myofascial pain syndrome [M79.18] 06/14/2022 UTI symptoms [R39.9] 08/02/2022 Abdominal pain [R10.9] 10/20/2022 Chronic pain syndrome [G89.4] 12/04/2023 Sacroiliitis (HCC) [M46.1] 12/04/2023 Acute right-sided low back pain with right-side*06/14/2024 Encounter for screening mammogram for breast ca*06/14/2024 Adjustment disorder with mixed anxiety and depr*06/14/2024 Headaches [R51.9] 06/14/2024 Hypothyroidism, unspecified [E03.9] 11/03/2021 Hair thinning [L65.9] 07/16/2024 Brittle nails [L60.3] 07/16/2024 intermediate systemic steroid user [Z79.52] 07/16/2024 Encounter Status:Closed by DWAYNE MCDANIEL on 07/24/24 [facility] DXA Skeletal system.axial Vi ews for bone densityOrdered By: [facility] Provider on 07-24-2024 LOWEST T-SCORE -1.5 [facility] DXA Skeletal system.axial Vi ews for bone densityon 07-24-2024 IMPRESSION: THE LOWEST T-SCORE IS -1.5 IN THE SPINE 1) DIAGNOSIS (based on BMD alone): OSTEOPENIA Caution: Medical conditions other than osteoporosis may cause low bone density, such as osteomalacia or renal osteodystrophy. Clinical correlation is necessary. 2) FRACTURE RISK ( Based on FRAX) 10-year absolute fracture risk: - major osteoporotic fracture = 2.8 % - hip fracture = 0.2 % - A diagnosis of Osteoporosis, a 10 year probability of hip fracture greater than or equal to 3% or a 10 year probability of any major osteoporosis-related fracture greater than or equal to 20% should be considered for treatment. - DXA scanner generated FRAX calculations may slightly differ from online FRAX calculations due to differences in software versions. - All recommendations and calculations are to be considered as guidelines and should not replace sound clinical judgement - Caution: Fracture risk may be increased independent of BMD in patients with corticosteroid use, age greater than 65 years, or a history of prior fragility fracture. RECOMMENDATIONS: Follow-up in 2 years or as clinically indicated. Patients that are taking corticosteroids, are transplant recipients or have hyperparathyroidism should have annual follow-up. Follow-up scans should always be done on the same machine for accurate comparison. FOR MORE INFORMATION ABOUT DIAGNOSIS AND TREATMENT: [facility] Center for Osteoporosis and Metabolic Bone Disease:? www.ccf.org/arthritis/osteo National Osteoporosis Foundation:? www.nof.org International Society of Clinical Densitometry www.iscd.org [employer] Operator: BERTHA Transcribe Date/Time: Jul 24 2024 9:08A Dictated by : JALYN MCKEON MD This examination was interpreted and the report reviewed and electronically signed by: JALYN MCKEON MD on Jul 24 2024 9:41AM [facility] * * *Final Report* * * DATE OF EXAM: Jul 24 2024 9:08AM [facility] 0804 - BD DXA - AXIAL SKELETON / PROCEDURE REASON: multiple diagnoses * * * * Physician Interpretation * * * * EXAMINATION: DXA BONE DENSITOMETRY BD DXA - AXIAL SKELETON PATIENT DEMOGRAPHICS: Age: 44 years, Gender: Female SCANNER INFORMATION: DXA Model: [facility] - [employer] [id number] Date Scanned: 07/24/2024 9:08 AM CLINICAL HISTORY: DIAGNOSTIC Acquired hypothyroidism intermediate systemic steroid user H/O protein C deficiency H/O protein S deficiency. RISK FACTORS FOR OSTEOPOROSIS AND ASSOCIATED FRACTURES REPORTED BY THIS PATIENT: Please refer to Bone Health Questionnaire in the EMR CURRENT THERAPY: Please refer to Bone Health Questionnaire in the EMR TECHNICAL LIMITATIONS: Degenerative disease of the spine RESULTS: Lumbar Spine (L1, L2, L3, L4): Total BMD: 1.000 g/cm2, T-score: -1.5 , Z-score: -1.5 Left Femoral Neck: 0.850 g/cm2, T-score -1.4, Z-score -0.8 Left Total Hip: 1.032 g/cm2, T-score 0.2 , Z-score 0.5 No comparison data - the patient has not had a previous bone density in the [employer] or the previous bone density was performed on a different DXA machine (new, updated model or different location) within the [employer]. VERTEBRAL FRACTURE ASSESSMENT Not performed. TRABECULAR BONE ASSESSMENT TBS not performed: TBS software is not available on this DXA scanner [facility] Enriqueta Stevenson - 07/24/2024 * * *Final Report* * * DATE OF EXAM: Jul 24 2024 9:08AM [facility] 0804 - BD DXA - AXIAL SKELETON / PROCEDURE REASON: multiple diagnoses * * * * Physician Interpretation * * * * EXAMINATION: DXA BONE DENSITOMETRY BD DXA - AXIAL SKELETON PATIENT DEMOGRAPHICS: Age: 44 years, Gender: Female SCANNER INFORMATION: DXA Model: [facility] - [employer] [id number] Date Scanned: 07/24/2024 9:08 AM CLINICAL HISTORY: DIAGNOSTIC Acquired hypothyroidism intermediate systemic steroid user H/O protein C deficiency H/O protein S deficiency. RISK FACTORS FOR OSTEOPOROSIS AND ASSOCIATED FRACTURES REPORTED BY THIS PATIENT: Please refer to Bone Health Questionnaire in the EMR CURRENT THERAPY: Please refer to Bone Health Questionnaire in the EMR TECHNICAL LIMITATIONS: Degenerative disease of the spine RESULTS: Lumbar Spine (L1, L2, L3, L4): Total BMD: 1.000 g/cm2, T-score: -1.5 , Z-score: -1.5 Left Femoral Neck: 0.850 g/cm2, T-score -1.4, Z-score -0.8 Left Total Hip: 1.032 g/cm2, T-score 0.2 , Z-score 0.5 No comparison data - the patient has not had a previous bone density in the [employer] or the previous bone density was performed on a different DXA machine (new, updated model or different location) within the [employer]. VERTEBRAL FRACTURE ASSESSMENT Not performed. TRABECULAR BONE ASSESSMENT TBS not performed: TBS software is not available on this DXA scanner IMPRESSION IMPRESSION: THE LOWEST T-SCORE IS -1.5 IN THE SPINE 1) DIAGNOSIS (based on BMD alone): OSTEOPENIA Caution: Medical conditions other than osteoporosis may cause low bone density, such as osteomalacia or renal osteodystrophy. Clinical correlation is necessary. 2) FRACTURE RISK ( Based on FRAX) 10-year absolute fracture risk: - major osteoporotic fracture = 2.8 % - hip fracture = 0.2 % - A diagnosis of Osteoporosis, a 10 year probability of hip fracture greater than or equal to 3% or a 10 year probability of any major osteoporosis-related fracture greater than or equal to 20% should be considered for treatment. - DXA scanner generated FRAX calculations may slightly differ from online FRAX calculations due to differences in software versions. - All recommendations and calculations are to be considered as guidelines and should not replace sound clinical judgement - Caution: Fracture risk may be increased independent of BMD in patients with corticosteroid use, age greater than 65 years, or a history of prior fragility fracture. RECOMMENDATIONS: Follow-up in 2 years or as clinically indicated. Patients that are taking corticosteroids, are transplant recipients or have hyperparathyroidism should have annual follow-up. Follow-up scans should always be done on the same machine for accurate comparison. FOR MORE INFORMATION ABOUT DIAGNOSIS AND TREATMENT: [facility] Center for Osteoporosis and Metabolic Bone Disease:? www.ccf.org/arthritis/osteo National Osteoporosis Foundation:? www.nof.org International Society of Clinical Densitometry www.iscd.org [employer] Operator: BERTHA Transcribe Date/Time: Jul 24 2024 9:08A Dictated by : JALYN MCKEON MD This examination was interpreted and the report reviewed and electronically signed by: JALYN MCKEON MD on Jul 24 2024 9:41AM EST [facility] Rad[facility] Telephone ([facility]) SUHA CALIX ([id number]) 1980 F [facility] Date Time Provider Department 07/17/24 DWAYNE MCDANIEL [facility] During your visit today, we recorded the following information about you: Karrie Sahni 07/17/2024 7:59 AM Signed Referral, face sheet and office notes sent to Dr. Fontenot and [facility]. Patient informed their office will call to get appointment scheduled. Latisha Joya 08/23/2024 3:31 PM Signed Patient called and has never heard from Dr. Fontenot office and would like office to follow up and see if the referral was received and if not resend? Please advise. Thank you. Joshua Riley 08/26/2024 10:31 AM Signed Left a message for patient to call the office back. I called Dr. Fontenot's office and was advised they are not taking any new patient's at the moment. We would have to refer patient up to [facility], if that's ok with her. Tati Enciso 08/26/2024 1:26 PM Signed Suha was advised and is okay with being referred to Joshua White 08/26/2024 1:46 PM Signed Referral demographics lab results and office notes have been faxed to [facility]. Their office will reach out to patient for scheduling. Allergies As of Date: 07/17/2024 Noted Allergy Reaction LATEX 03/16/2021 2 - Rash PENICILLINS 03/16/2021 10 - Anaphylaxis TAPE (ADHESIVE TAPE-SILICONES) 06/15/2022 2 - Rash TORADOL (KETOROLAC) 03/16/2021 7 - Swelling Comments: Tongue swelling Date Reviewed: 07/16/2024 Reviewed by: Dwayne Mcdaniel MD - Fully Assessed Reason for Visit: Referral Information [0392] Cmt: Rheum and Hemotology Prescriptions as of 08/26/2024 - eletriptan (RELPAX) 40 mg tablet At migraine onset. may repeat in 2 hours if necessary - erenumab-aooe (AIMOVIG AUTOINJECTOR) 70 mg/mL auto-injector Inject 1 mL subcutaneously once every month. - ondansetron orally disintegrating (ZOFRAN ODT) 4 mg disintegrating tablet Take 1 tablet by mouth every 8 hours as needed for nausea/vomiting. - gabapentin (NEURONTIN) 100 mg capsule Take 2 capsules by mouth daily at bedtime for 30 days. - levothyroxine (SYNTHROID) 125 mcg tablet Take 1 tablet by mouth once daily. - amitriptyline (ELAVIL) 10 mg tablet Take 20 mg by mouth daily at bedtime. - apixaban (ELIQUIS) 5 mg tab(s) Take 1 tablet by mouth two times a day. - tiZANidine (ZANAFLEX) 4 mg tablet Take 0.5-1 tablets by mouth three times a day as needed (muscle spasms). - pantoprazole DR (PROTONIX) 40 mg tablet Take 1 tablet by mouth once daily. - topiramate (TOPAMAX) 100 mg tablet Take 1 tablet by mouth two times a day. - ergocalciferol 50,000 unit capsule (VITAMIN D2, DRISDOL) Take 1 capsule by mouth one time a week. Use as directed. - dicyclomine (BENTYL) 20 mg tablet TAKE ONE TABLET BY MOUTH THREE TIMES A DAY NEEDED FOR ABDOMINAL PAIN - polyethylene glycol 3350 (MIRALAX, GLYCOLAX) 17 gram/dose powder Take 17 g by mouth once daily. Problem List As Of Date 07/17/2024 Noted Resolved H/O protein C deficiency [Z86.2] H/O protein S deficiency [Z86.2] Migraine [G43.909] Malignant melanoma (HCC) [C43.9] History of DVT (deep vein thrombosis) [Z86.718] 10/04/2021 Hypothyroidism [E03.9] 04/26/2021 Neck pain [M54.2] 06/14/2022 Right leg pain [M79.604] 06/14/2022 Left leg pain [M79.605] 06/14/2022 Myofascial pain syndrome [M79.18] 06/14/2022 UTI symptoms [R39.9] 08/02/2022 Abdominal pain [R10.9] 10/20/2022 Chronic pain syndrome [G89.4] 12/04/2023 Sacroiliitis (HCC) [M46.1] 12/04/2023 Acute right-sided low back pain with right-side*06/14/2024 Encounter for screening mammogram for breast ca*06/14/2024 Adjustment disorder with mixed anxiety and depr*06/14/2024 Headaches [R51.9] 06/14/2024 Hypothyroidism, unspecified [E03.9] 11/03/2021 Hair thinning [L65.9] 07/16/2024 Brittle nails [L60.3] 07/16/2024 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 [Z79.52] 07/16/2024 Encounter Status:Closed by KARRIE SAHNI on 07/17/24 [facility] CNOVon 07-16-2024 CNOV Office Visit (UPC[facility] ) SUHA CALIX ([id number]) 1980 F [facility] Date Time Provider Department 07/16/24 8:00 AM DWAYNE MCDANIEL [facility] During your visit today, we recorded the following information about you: Pulse Blood pressure Weight 98/minute 116/77 55.1 kg Dwayne Mcdaniel MD 07/16/2024 10:44 AM Signed Suha Zelaya Fifi is a 44 year old female patient with past medical history of anxiety and depression, DVT history, GERD, history of protein C deficiency, history of protein S deficiency, hypothyroidism, migraines who presents for follow-up on medical conditions and she is having a few concerns today. Has been seeing orthopedic for her neck pain, she was prescribed gabapentin 100 mg twice a day for pain by [facility] orthopedics. She has an MRI coming up for her neck. She needs gabapentin refill Patient is complaining of brittle nails, hair falling and thinning. Last TSH in March was normal. She continues to take levothyroxine. She would like that checked again. Patient complains of yellow sinus drainage, sinus pressure and pain, headaches that have been occurring more than 2 weeks. Patient has a follow-up with oral surgeon on July 23 for dentures and a possible bone graft. Patient would like a DEXA scan done she is worried as she had long-term systemic steroid use. Patient also states she was diagnosed with MTHFR by a doctor in [place]. She would like a referral to hematology oncology used to see them in [place]. Discussed with patient that I need records. Screenings: -She has not done her mammogram, we will reschedule appointment -Colonoscopy completed on January 16, 2023, she will follow-up in 5 years -She had a complete hysterectomy 2 years ago Vaccines: -She will receive the flu and tetanus shot today -She will obtain COVID vaccine from pharmacy PAST MEDICAL HISTORY Diagnosis Date Anxiety and depression DVT (deep venous thrombosis) (HCC) GERD (gastroesophageal reflux disease) H/O protein C deficiency H/O protein S deficiency History of DVT (deep vein thrombosis) 10/04/2021 Hypothyroid Malignant melanoma (HCC) Melanoma (HCC) Migraines Other specified hypothyroidism 10/04/2021 PAST SURGICAL HISTORY Procedure Laterality Date ARTERY TO VEIN SHUNT 06/28/[address] [facility] SECTION SINGLE 1998 COLONOSCOPY SCREENING 01/16/2023 EGD W/O BRSH SPEC VARICIES INJ 01/16/2023 ESOPHAGOGASTRODUODENOSCOPY TRANSORAL DIAGNOSTIC 03/23/2013 EGD HAND SURGERY HX Left trigger finger release 3 rd finger HYSTEROSCOPY, DIAGNOSTIC (SEPARATE 10/18/2021 IR IVC FILTER PLACEMENT 2010 MALIGNANT MELANOMA - WIDE EXCISION IN ANY AREA AND MUST INCLUDE > 1CM MARGINS AND LAYERED CLOSURE TONSILLECTOMY AND ADENOIDECTOMY VAGINAL HYSTERECTOMY 03/08/2022 total ALLERGIES Allergen Reactions Latex Rash Penicillins Anaphylaxis Tape [Adhesive Tape* Rash Toradol [Ketorolac] Swelling Tongue swelling REVIEW OF SYSTEMS GENERAL: No weight loss, malaise or fevers HEENT: Positive for headaches, No changes in hearing or vision, no nose bleeds or other nasal problems. He complains of sinus pain and sinus pressure. Yellow discharge. NECK: Negative for lumps, pain or neck swelling. RESPIRATORY: Negative for cough, hemoptysis, wheezing,dyspnea or shortness of breath CARDIOVASCULAR: Negative for chest pain, leg swelling, or palpitations GI: No nausea, vomiting, or diarrhea or constipation MUSCULOSKELETAL: Negative for joint pain or swelling, back pain or muscle pain, complains of neck pain and following with Ortho. SKIN: Negative for lesions, rash, and itching, brittle nails PSYCH: Negative for sleep disturbance, mood disorder and recent psychosocial stressors HEMATOLOGY/LYMPHOLOGY: Negative for prolonged bleeding, bruising easily or swollen nodes ENDOCRINE: Negative for cold or heat intolerance, polyuria, polydipsia and goiter, she has hair thinning and hair loss NEURO: Positive for headaches, denied syncope, paralysis, seizures or tremors Vitals: BP 116/77 Pulse 98 Wt 121 lb 6.4 oz (55.1kg) SpO2 100% LMP 03/08/2022 PHYSICAL EXAM: General Appearance: Well appearing, alert, in no acute distress, well-hydrated, well nourished.. Head: Normocephalic, atraumatic Eyes: Anicteric sclera. Pupils are equally round and reactive to light. Extraocular movements are intact. . Nose/Sinuses: Nasal congestion, septum midline, mucosa normal, yellow drainage and sinus tenderness facial and maxillary. Oropharynx: Lips, mucosa, and tongue normal, as dentures, oropharynx normal. Neck: Supple, no adenopathy Lungs: Lungs clear to auscultation. No wheezing, rhonchi, rales.. Heart: RRR without murmur, gallop, or rubs. . Extremities: No deformities, edema, skin discoloration, clubbing or cyanosis. Good capillary refill. . Peripheral Pulses: Normal. Neurologic: Gait gibson (more content not included)... [facility] 07-16-2024 [facility] Telephone ([facility]) SUHA CALIX ([id number]) 1980 F CHT Date Time Provider Department 07/16/24 DWAYNE MCDANIEL [facility] During your visit today, we recorded the following information about you: Dwayne Mcdaniel MD 07/16/2024 1:44 PM Signed Please let patient know her TSH level is elevated at 6.5 will increase levothyroxine to 125 mcg and will repeat TSH levels in 8 weeks. Make sure she is taking it on an empty stomach. Suha Gordon MA 07/17/2024 6:59 AM Signed LVM for patient to call back HANNA Franklin Heather, MA 07/17/2024 1:55 PM Signed Patient advised Suha Gordon MA Allergies As of Date: 07/16/2024 Noted Allergy Reaction LATEX 03/16/2021 2 - Rash PENICILLINS 03/16/2021 10 - Anaphylaxis TAPE (ADHESIVE TAPE-SILICONES) 06/15/2022 2 - Rash TORADOL (KETOROLAC) 03/16/2021 7 - Swelling Comments: Tongue swelling Date Reviewed: 07/16/2024 Reviewed by: Dwayne Mcdaniel MD - Fully Assessed Primary Visit Diagnosis:Acquired hypothyroidism [E03.9] Order(s):levothyroxine (SYNTHROID) 125 mcg tabletTake 1 tablet by mouth once daily.Disp: 90 tabletRfl: 0 THYROID STIMULATING HORMONE [SQTSH] Order #: [id number] FUTURE Prescriptions as of 07/17/2024 - ondansetron orally disintegrating (ZOFRAN ODT) 4 mg disintegrating tablet Take 1 tablet by mouth every 8 hours as needed for nausea/vomiting. - gabapentin (NEURONTIN) 100 mg capsule Take 2 capsules by mouth daily at bedtime for 30 days. - doxycycline hyclate (VIBRAMYCIN) 100 mg capsule Take 1 capsule (100 mg) by mouth two times a day for 5 days. - levothyroxine (SYNTHROID) 125 mcg tablet Take 1 tablet by mouth once daily. - amitriptyline (ELAVIL) 10 mg tablet Take 20 mg by mouth daily at bedtime. - eletriptan (RELPAX) 20 mg tablet Take 1 tablet (20 mg) by mouth as needed for migraine headache (see administration instructions). may repeat in 2 hours if necessary - apixaban (ELIQUIS) 5 mg tab(s) Take 1 tablet by mouth two times a day. - tiZANidine (ZANAFLEX) 4 mg tablet Take 0.5-1 tablets by mouth three times a day as needed (muscle spasms). - pantoprazole DR (PROTONIX) 40 mg tablet Take 1 tablet by mouth once daily. - topiramate (TOPAMAX) 100 mg tablet Take 1 tablet by mouth two times a day. - ergocalciferol 50,000 unit capsule (VITAMIN D2, DRISDOL) Take 1 capsule by mouth one time a week. Use as directed. - dicyclomine (BENTYL) 20 mg tablet TAKE ONE TABLET BY MOUTH THREE TIMES A DAY NEEDED FOR ABDOMINAL PAIN - fluticasone (FLONASE) 50 mcg/actuation nasal spray USE 1 SPRAY IN EACH NOSTRIL ONCE DAILY - polyethylene glycol 3350 (MIRALAX, GLYCOLAX) 17 gram/dose powder Take 17 g by mouth once daily. Problem List As Of Date 07/16/2024 Noted Resolved H/O protein C deficiency [Z86.2] H/O protein S deficiency [Z86.2] Migraine [G43.909] Malignant melanoma (HCC) [C43.9] History of DVT (deep vein thrombosis) [Z86.718] 10/04/2021 Hypothyroidism [E03.9] 04/26/2021 Neck pain [M54.2] 06/14/2022 Right leg pain [M79.604] 06/14/2022 Left leg pain [M79.605] 06/14/2022 Myofascial pain syndrome [M79.18] 06/14/2022 UTI symptoms [R39.9] 08/02/2022 Abdominal pain [R10.9] 10/20/2022 Chronic pain syndrome [G89.4] 12/04/2023 Sacroiliitis (HCC) [M46.1] 12/04/2023 Acute right-sided low back pain with right-side*06/14/2024 Encounter for screening mammogram for breast ca*06/14/2024 Adjustment disorder with mixed anxiety and depr*06/14/2024 Headaches [R51.9] 06/14/2024 Hypothyroidism, unspecified [E03.9] 11/03/2021 Hair thinning [L65.9] 07/16/2024 Brittle nails [L60.3] 07/16/2024 intermediate systemic steroid user [Z79.52] 07/16/2024 Prescriptions ordered this encounter Disp Refills Start End LEVOTHYROXINE 125 MCG TABLET 90 t* 0 07/16/2024 10/14/2024 Route: ORAL Sig: Take 1 tablet by mouth once daily. Medications Discontinued During This Encounter Prescriptions - levothyroxine (SYNTHROID) 112 mcg tablet (Discontinued) take 1 tablet daily Encounter Status:Closed by DWAYNE MCDANIEL on 07/16/24 [facility] ([id number]) 1980 F CHT Date Time Provider Department 07/16/24 DWAYNE MCDANIEL [facility] During your visit today, we recorded the following information about you: Suha Gordon MA 07/16/2024 10:47 AM Signed Patient wanted to defer the injections today Allergies As of Date: 07/16/2024 Noted Allergy Reaction LATEX 03/16/2021 2 - Rash PENICILLINS 03/16/2021 10 - Anaphylaxis TAPE (ADHESIVE TAPE-SILICONES) 06/15/2022 2 - Rash TORADOL (KETOROLAC) 03/16/2021 7 - Swelling Comments: Tongue swelling Date Reviewed: 07/16/2024 Reviewed by: Dwayne Mcdaniel MD - Fully Assessed Prescriptions as of 07/16/2024 - ondansetron orally disintegrating (ZOFRAN ODT) 4 mg disintegrating tablet Take 1 tablet by mouth every 8 hours as needed for nausea/vomiting. - gabapentin (NEURONTIN) 100 mg capsule Take 2 capsules by mouth daily at bedtime for 30 days. - doxycycline hyclate (VIBRAMYCIN) 100 mg capsule Take 1 capsule (100 mg) by mouth two times a day for 5 days. - amitriptyline (ELAVIL) 10 mg tablet Take 20 mg by mouth daily at bedtime. - eletriptan (RELPAX) 20 mg tablet Take 1 tablet (20 mg) by mouth as needed for migraine headache (see administration instructions). may repeat in 2 hours if necessary - apixaban (ELIQUIS) 5 mg tab(s) Take 1 tablet by mouth two times a day. - tiZANidine (ZANAFLEX) 4 mg tablet Take 0.5-1 tablets by mouth three times a day as needed (muscle spasms). - levothyroxine (SYNTHROID) 112 mcg tablet take 1 tablet daily - pantoprazole DR (PROTONIX) 40 mg tablet Take 1 tablet by mouth once daily. - topiramate (TOPAMAX) 100 mg tablet Take 1 tablet by mouth two times a day. - ergocalciferol 50,000 unit capsule (VITAMIN D2, DRISDOL) Take 1 capsule by mouth one time a week. Use as directed. - dicyclomine (BENTYL) 20 mg tablet TAKE ONE TABLET BY MOUTH THREE TIMES A DAY NEEDED FOR ABDOMINAL PAIN - fluticasone (FLONASE) 50 mcg/actuation nasal spray USE 1 SPRAY IN EACH NOSTRIL ONCE DAILY - polyethylene glycol 3350 (MIRALAX, GLYCOLAX) 17 gram/dose powder Take 17 g by mouth once daily. Problem List As Of Date 07/16/2024 Noted Resolved H/O protein C deficiency [Z86.2] H/O protein S deficiency [Z86.2] Migraine [G43.909] Malignant melanoma (HCC) [C43.9] History of DVT (deep vein thrombosis) [Z86.718] 10/04/2021 Hypothyroidism [E03.9] 04/26/2021 Neck pain [M54.2] 06/14/2022 Right leg pain [M79.604] 06/14/2022 Left leg pain [M79.605] 06/14/2022 Myofascial pain syndrome [M79.18] 06/14/2022 UTI symptoms [R39.9] 08/02/2022 Abdominal pain [R10.9] 10/20/2022 Chronic pain syndrome [G89.4] 12/04/2023 Sacroiliitis (HCC) [M46.1] 12/04/2023 Acute right-sided low back pain with right-side*06/14/2024 Encounter for screening mammogram for breast ca*06/14/2024 Adjustment disorder with mixed anxiety and depr*06/14/2024 Headaches [R51.9] 06/14/2024 Hypothyroidism, unspecified [E03.9] 11/03/2021 Hair thinning [L65.9] 07/16/2024 Brittle nails [L60.3] 07/16/2024 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 [Z79.52] 07/16/2024 Encounter Status:Closed by SUHA GORDON on 07/16/24 [facility] THYROID STIMULATING HORMONEo n 07-16-2024 TSH Qn 6.510 m[IU]/L High [facility] Comment on above: If the patient is pr egnant, TSH reference range varies by gestational period: First Trimester (weeks 9-12): 0.180-2.990 mIU/L Second Trimester: 0.110-3.980 mIU/L Third Trimester: 0.480-4.710 mIU/L Tyler Zelaya et al. A Practical Approach for the Verifications and Determination of Site- and Trimester-Specific Reference Intervals for Thyroid Function tests in . Thyroid, 2019:29:3:412-420. Tod Quintero et al. 2017 Guidelines of the [place] [employer] for the Diagnosis and Management of Thyroid Disease during and the . Thyroid, 2017:27:3:315-389. TSH Qnon 07-16-2024 Interpretation and review of laboratory results Abnormal [facility] TSH SerPl-aCncon 07-16-2024 TSH Qn 6.510 m[IU]/L High 0.270-4.[address] [facility] Comment on above: Order Comment: Speci men Type: BLOOD SPECIMENOrdering Facility: [facility] Address: [facility] [place] [address] Result Comment: If t he patient is , TSH reference range varies by gestational period: First Trimester (weeks 9-12): 0.180-2.990 mIU/L Second Trimester: 0.110-3.980 mIU/L Third Trimester: 0.480-4.710 mIU/L Tyler Zelaya et al. A Practical Approach for the Verifications and Determination of Site- and Trimester-Specific Reference Intervals for Thyroid Function tests in . Thyroid, 2019:29:3:412-420. Tod Quintero et al. 2017 Guidelines of the [place] [employer] for the Diagnosis and Management of Thyroid Disease during and the . Thyroid, 2017:27:3:315-389. Performed By: #### 3 016-3 ####[facility] LABCLIA [id number] [place] [address] [facility] /Jin 07-05-2024 /KERRY [facility] [address] [place], [place] [address] OFFICE VISIT Date of Service: 07/05/24 MR#: [id number] Acct: [id number] Name: SUHA CALIX Rep #: [id number] : 1980 Provider: PRAVEENA Berry Age/Sex: 44/F Location: [facility] Status: Signed Intake Vital Signs 07/11/23 08:21 07/05/24 14:19 Height 5 ft 4 in Weight: 118 lb BP 96/75 Blood Pressure Location Lt brachial Position Sitting Respiration 14 Pulse 83 Pulse Source Monitor Temp 98.9 F Temp Source Temporal Pulse Oximetry (%) 99 Oxygen Delivery Method room air Intake Visit Reasons: 1 Y FU/DISCUSS RESULTS Chief Complaint: results Is patient in pain?: Yes Allergies Penicillins Allergy (Severe, Verified 07/26/23 13:04) Hives ketorolac (From Toradol) Allergy (Intermediate, Verified 07/26/23 13:04) Swelling latex Allergy (Verified 07/26/23 13:04) Hives Medications ???Medication ???Instructions ???Recorded ???Confirmed ???Type apixaban 5 mg tablet (Eliquis) 5 mg PO BID 06/02/22 07/05/24 History eletriptan 20 mg tablet See Rx Instructions PO .COMPLEX 06/02/22 07/05/24 History ibuprofen 600 mg tablet 600 mg PO TID 06/02/22 07/05/24 History levothyroxine 112 mcg capsule 112 mcg PO DAILY 06/02/22 07/05/24 History pantoprazole 40 mg tablet,delayed 40 mg PO DAILY 06/02/22 07/05/24 History release polyethylene glycol 3350 17 4 g PO DAILY 06/02/22 07/05/24 History gram/dose oral powder (Miralax) tizanidine 4 mg tablet 4 mg PO QHS 06/02/22 07/05/24 History topiramate 100 mg tablet 100 mg PO BID 06/02/22 07/05/24 History amitriptyline 10 mg tablet 20 mg PO QHS 07/05/24 07/05/24 History aspirin 81 mg tablet,delayed 81 mg PO QDAY 07/05/24 07/05/24 History release (Adult Low Dose Aspirin) gabapentin 100 mg capsule 100 mg PO QHS 07/05/24 07/05/24 History Is last menstrual period known: Yes Post menopausal: No Patient : No Have you fallen in the past year?: Yes [facility] Medical History (Updated 07/05/24 @ 15:05 by PRAVEENA Berry) Malignant melanoma H/O protein S deficiency H/O protein C deficiency Hypothyroidism GERD (gastroesophageal reflux disease) Anxiety Surgical History H/O local excision of skin lesion H/O adenoidectomy H/O: H/O superior vena cava filter placement H/O: hysterectomy Family History Father Bleeding disorder Heart disease Social History Smoking Status: Former smoker substance use type: does not use do you feel safe at home: Yes HPI HPI HPI: SUHA CALIX, is a 44 F who presents to the office today for 1 year follow-up and review of recent venous testing. She reports that she has not been doing very well over the last several months unfortunately. She describes recurrent syncopal episodes occurring as often as a few times a week. These typically occ ur when she goes from sitting to standing/walking. Initially, she will feel very dizzy and then this proceeds to full syncope. Along with these episodes she notices palpitations or heart racing. She also intermittently feels that she has palpitations at other times not associated with positional changes. When she has been wearing her smart watch she notes her heart rate will go up into the 160s when she feels these palpitations. She has not necessarily noticed any other triggers such as heat. She denies associated chest pain. She has also noticed some intermittent dyspnea, not necessarily associated with activity or position. She reports she brought these concerns to her PCP. She reports he had some blood work which she believes came back normal but they are not doing any further workup. She would like to change to a PCP here in [place]. She denies any recent cardiac testing. She also notes some increased left calf pain, feels similar to when she has had blood clots in the past. Recall that she does have a history of protein C and S deficiency and prior recurrent DVTs. She does have an IVC filter in place. She has been taking her Eliquis exactly as prescribed, no missed doses. She had venous duplex recently for routine surveillance imaging of her left common iliac vein stent. This showed patent stents but pulsatile flow throughout. ROS General General: Yes weight change, appetite, fatigue and weakness; No colon cancer or breast cancer HEENT HEENT: Yes swollen glands and hoarseness; No difficulty swallowing, eye injury or eye surgery Endo Endocrine: Yes thyroid disease; No diabetes mellitus, thyroid cancer, Hair loss, heat intolerance or cold intolerance Skin Skin: Yes changing moles; No rash Musc Musculoskeletal (more content not included)... Normal [facility] 07-03-2024 [facility] Telephone ([facility]) SUHA CALIX ([id number]) 1980 F CHT Date Time Provider Department 07/03/24 DWAYNE MCDANIEL [facility] During your visit today, we recorded the following information about you: Dwayne Mcdaniel MD 07/03/2024 4:34 PM Signed Please let patient know labs are within normal limits thank you Suha Gordon MA 07/03/2024 4:46 PM Signed Left message for patient to call the office back Number provided HANNA Franklin Heather, MA 07/04/2024 8:42 AM Signed LVM for patient ttto call the office back HANNA Franklin Tanika 07/04/2024 10:02 AM Signed Patient called back in and was informed of the message from Dr. Mcdaniel. Patient understood and had no further questions. Allergies As of Date: 07/03/2024 Noted Allergy Reaction LATEX 03/16/2021 2 - Rash PENICILLINS 03/16/2021 10 - Anaphylaxis TAPE (ADHESIVE TAPE-SILICONES) 06/15/2022 2 - Rash TORADOL (KETOROLAC) 03/16/2021 7 - Swelling Comments: Tongue swelling Date Reviewed: 06/14/2024 Reviewed by: Alysa Shah MA - Fully Assessed Prescriptions as of 07/04/2024 - amitriptyline (ELAVIL) 10 mg tablet Take 20 mg by mouth daily at bedtime. - eletriptan (RELPAX) 20 mg tablet Take 1 tablet (20 mg) by mouth as needed for migraine headache (see administration instructions). may repeat in 2 hours if necessary - apixaban (ELIQUIS) 5 mg tab(s) Take 1 tablet by mouth two times a day. - tiZANidine (ZANAFLEX) 4 mg tablet Take 0.5-1 tablets by mouth three times a day as needed (muscle spasms). - levothyroxine (SYNTHROID) 112 mcg tablet take 1 tablet daily - pantoprazole DR (PROTONIX) 40 mg tablet Take 1 tablet by mouth once daily. - topiramate (TOPAMAX) 100 mg tablet Take 1 tablet by mouth two times a day. - ergocalciferol 50,000 unit capsule (VITAMIN D2, DRISDOL) Take 1 capsule by mouth one time a week. Use as directed. - dicyclomine (BENTYL) 20 mg tablet TAKE ONE TABLET BY MOUTH THREE TIMES A DAY NEEDED FOR ABDOMINAL PAIN - fluticasone (FLONASE) 50 mcg/actuation nasal spray USE 1 SPRAY IN EACH NOSTRIL ONCE DAILY - polyethylene glycol 3350 (MIRALAX, GLYCOLAX) 17 gram/dose powder Take 17 g by mouth once daily. - ondansetron orally disintegrating (ZOFRAN ODT) 4 mg disintegrating tablet Take 1 tablet by mouth every 8 hours as needed for nausea/vomiting. Problem List As Of Date 07/03/2024 Noted Resolved H/O protein C deficiency [Z86.2] H/O protein S deficiency [Z86.2] Migraine [G43.909] Malignant melanoma (HCC) [C43.9] History of DVT (deep vein thrombosis) [Z86.718] 10/04/2021 Hypothyroidism [E03.9] 04/26/2021 Neck pain [M54.2] 06/14/2022 Right leg pain [M79.604] 06/14/2022 Left leg pain [M79.605] 06/14/2022 Myofascial pain syndrome [M79.18] 06/14/2022 UTI symptoms [R39.9] 08/02/2022 Abdominal pain [R10.9] 10/20/2022 Chronic pain syndrome [G89.4] 12/04/2023 Sacroiliitis (HCC) [M46.1] 12/04/2023 Acute right-sided low back pain with right-side*06/14/2024 Encounter for screening mammogram for breast ca*06/14/2024 Adjustment disorder with mixed anxiety and depr*06/14/2024 Headaches [R51.9] 06/14/2024 Hypothyroidism, unspecified [E03.9] 11/03/2021 Encounter Status:Closed by DWAYNE MCDANIEL on 07/03/24 [facility] DERECK BY IFA WITH REFLEXon Nuclear Ab Ql (S) Negative Normal Negative [facility] Comment on above: Order Comment: Alejandro mcmanus Type: BLOOD SPECIMENOrdering Facility: [facility] Address: [address] [place] [address] Result Comment: Anti -nuclear antibody test is used as an aid in diagnosis of systemic autoimmune diseases. Where positive and clinically warranted, follow-up using disease-specific testing is recommended. Low positive titers are not uncommon with advanced age, certain chronic infections, and malignancies among others. Test methodology: Indirect fluorescence immunoassay (IFA) using HEp-2 cells. Performed By: #### A NAIFR ####[facility] LABCLIA [id number] [place] [address] [place] CRP SerPl-mCncon 07-02-2024 CRP [Mass/Vol] mg/L Normal <1.0 [facility] Comment on above: Order Comment: Alejandro mcmanus Type: BLOOD SPECIMEN Ordering Facility: [facility] Address: [address] [place] [address] Performed By: #### 2 4323-8, 1988-02, 2276-01 #### [facility] CLIA [id number] [address] [place] [address] [place] Comprehensive metabolic 2000 panelon 07-02-2024 Albumin [Mass/Vol] 4.2 g/dL Normal 3.2-5.0 [facility] Comment on above: Order Comment: Alejandro mcmanus Type: BLOOD SPECIMEN Order[facility] Facility: [facility] Address: [address] [place] [address] Performed By: #### 2 4323-8, 1988-02, 2276-01 #### [facility] CLIA [id number] [address] [id number] [place] ALP [Catalytic activity/Vol] 47 U/L Normal 45-117 [facility] Comment on above: Order Comment: Speci men Type: BLOOD SPECIMEN Ordering [facility] Address: [address] [place] [address] Performed By: #### 2 4323-8, 1988-02, 2276-01 #### [facility] CLIA [id number] [address] [id number] [place] ALT [Catalytic activity/Vol] 12 U/L Low 13-61 [facility] Comment on above: Order Comment: Speci men Type: BLOOD SPECIMEN Ordering [facility]: [facility] Address: [address] [place] [address] Result Comment: Resu lts may be falsely depressed after the administration of Sulfasalazine and/or Sulfapyridine. Performed By: #### 2 4323-8, 1988-02, 2276-01 #### [facility] CLIA [id number] [address] [place] [address] [place] Anion gap [Moles/Vol] 8 mmol/L Normal 5-16 [facility] Comment on above: Order Comment: Speci men Type: BLOOD SPECIMEN Ordering [facility]: [facility] Address: [address] [place] [address] Performed By: #### 2 4323-8, 2276-01 #### [facility] CLIA [id number] [address] [place] [address] [place] AST [Catalytic activity/Vol] 17 U/L Normal 8-34 [facility] Comment on above: Order Comment: Speci men Type: BLOOD SPECIMEN Ordering Facility: [facility] Address: [address] [place] [address] Result Comment: Resu lts may be falsely depressed after the administration of Sulfasalazine and/or Sulfapyridine. Performed By: #### 2 4323-, 2276-01 #### [facility] CLIA [id number] [address] [place] [address] [place] Bilirubin [Mass/Vol] 0.4 mg/dL Normal 0.2-1.0 [facility] Comment on above: Order Comment: Speci men Type: BLOOD SPECIMEN Ordering Facility: [facility] Address: [address] [place], [place] [address] Performed By: #### 2 8, 2276-01 #### [facility] CLIA [id number] [address] [place], [place] [address] [place] Calcium [Mass/Vol] 9.5 mg/dL Normal 8.5-10.5 [facility] Comment on above: Order Comment: Speci men Type: BLOOD SPECIMEN Ordering Facility: [facility] Address: [address] [place] [address] Performed By: #### 2 8, 2276-01 #### [facility] CLIA [id number] [address] [place] [address] [place] Chloride [Moles/Vol] 112 mmol/L High 98-107 [facility] Comment on above: Order Comment: Speci men Type: BLOOD SPECIMEN Ordering Facility: [facility] Address: [address] [place], [place] [address] Performed By: #### 2 8, 2276-01 #### [facility] CLIA [id number] [address] [place], [place] [address] [place] CO2 [Moles/Vol] 22 mmol/L Normal 21-32 [facility] Comment on above: Order Comment: Speci men Type: BLOOD SPECIMEN Ordering Facility: [facility] Address: [address] [place] [address] Performed By: #### 2 4328, 2276-01 #### [facility] CLIA [id number] [address] [place], [place] [address] [place] Creatinine [Mass/Vol] 0.65 mg/dL Normal 0.51-0.95 [facility] Comment on above: Order Comment: Alejandro mcmanus Type: BLOOD SPECIMEN Ordering Facility: [facility] Address: [address] [id number] Result Comment: Nasreen ents receiving either N-Acetylcysteine (NAC) or Metamizole prior to venipuncture, may have falsely depressed results. Performed By: #### 2 4323-8, 2276-01 #### [facility] CLIA [id number] [address] [place] [address] [place] Creatinine and Glomerular filtration rate.predicted panel (S/P/Bld) 111 mL/min/1.73m??? Normal >=60 [facility] Comment on above: Order Comment: Alejandro mcmanus Type: BLOOD SPECIMEN Ordering Facility: [facility] Address: [address] [place] [address] Result Comment: Dea mated Glomerular Filtration Rate (eGFR) is calculated using the 2020 CKD-EPI creatinine equation. This equation utilizes serum creatinine, sex, and age as parameters. The creatinine assay has traceable calibration to isotope dilution-mass spectrometry. Refer to KDIGO guidelines for clinical interpretation. In patients with unstable renal function, e.g. those with acute kidney injury, the eGFR may not accurately reflect actual GFR. Performed By: #### 2 4323-8, 2276-01 #### [facility] CLIA [id number] [address] [place], [place] [address] [place] Glucose [Mass/Vol] 93 mg/dL Normal 70-100 [facility] Comment on above: Order Comment: Alejandro mcmanus Type: BLOOD SPECIMEN Ordering Facility: [facility] Address: [address] [id number] Result Comment: The [place] Diabetes [employer] (ADA) provides guidance for cutoff values for fasting glucose and random glucose. The ADA defines fasting as no caloric intake for at least 8 hours. Fasting plasma glucose results between 100 to 125 mg/dL indicate increased risk for diabetes (prediabetes). Fasting plasma glucose results greater than or equal to 126 mg/dL meet the criteria for diagnosis of diabetes. In the absence of unequivocal hyperglycemia, results should be confirmed by repeat testing. In a patient with classic symptoms of hyperglycemia or hyperglycemic crisis, random plasma glucose results greater than or equal to 200 mg/dL meet the criteria for diagnosis of diabetes. Reference: Standards of Medical Care in Diabetes 2016, [place] [employer]. Diabetes Care. 2016.39(Suppl 1). Results may be falsely elevated after the administration of Sulfapyridine. Results may be falsely depressed after the administration of Sulfasalazine. Performed By: #### 2 43238, 2276-01 #### [facility] CLIA [id number] [address] [place] [address] [place] Potassium [Moles/Vol] 3.7 mmol/L Normal 3.5-5.1 [facility] Comment on above: Order Comment: Alejandro mcmanus Type: BLOOD SPECIMEN Ordering Facility: [facility] Address: [address] [place] [address] Performed By: #### 2 4328, 2276-01 #### [facility] CLIA [id number] [address] [place] [address] [place] Protein [Mass/Vol] 6.6 g/dL Normal 6.0-8.5 [facility] Comment on above: Order Comment: Alejandro mcmanus Type: BLOOD SPECIMEN Ordering Facility: [facility] Address: [address] [place] [address] Performed By: #### 2 43238, 2276-01 #### [facility] CLIA [id number] [address] [place], [place] [address] [place] Sodium [Moles/Vol] 142 mmol/L Normal 136-145 [facility] Comment on above: Order Comment: Lilai marietta Type: BLOOD SPECIMEN Ordering Facility: [facility] Address: [address] [place] [address] Performed By: #### 2 43238, 2276-01 #### [facility] CLIA [id number] [address] [place], [place] [address] [place] Urea nitrogen [Mass/Vol] 8 mg/dL Normal 7-26 [facility] Comment on above: Order Comment: Speci men Type: BLOOD SPECIMEN Ordering Facility: [facility] Address: [address] [place] [address] Performed By: #### 2 4323-8, 1988-02, 2276-01 #### [facility] CLIA [id number] [address] [place] [address] [place] Cyclic citrullinated peptide IgG Qnon 07-02-2024 CCP ANTIBODY IGG QUALITATIVE Negative Normal Negative [facility] Comment on above: Order Comment: Speci men Type: BLOOD SPECIMEN Ordering Facility: [facility] Address: [address] [place] [address] Performed By: #### 3 3935-8 #### [facility] CLIA [id number] [address] [place] [address] [place] [address] [place] ESR Westergren method (Bld) [Velocity]on 07-02-2024 ESR (Bld) [Velocity] 2 mm/h Normal 0-20 [facility] Comment on above: Order Comment: Speci men Type: BLOOD SPECIMEN Ordering Facility: [facility] Address: [address] [place] [address] Performed By: #### 4 537-7 #### [facility] CLIA [id number] [address] [place] [address] [place] Ferritin SerPl-mCncon 2023 Ferritin [Mass/Vol] 66.2 ng/mL Normal 8.0-307.0 [facility] Comment on above: Order Comment: Speci men Type: BLOOD SPECIMEN Ordering Facility: [facility] Address: [address] [place] [address] Performed By: #### 2 4323-8, 1988-02, 2276-01 #### [facility] CLIA [id number] [address] [place], [place] [address] [place] Rheumatoid fact SerPl-aCncon 07-02-2024 Rheumatoid factor Qn 10 [IU]/mL Normal 0-15 [facility] Comment on above: Order Comment: Speci men Type: BLOOD SPECIMEN Ordering Facility: [facility] Address: [address] [place], [place] [id number] Performed By: #### 1 1572-5 #### [facility] CLIA [id number] [address] [address] [place] cCP IgG SerPl-aCncon -10-2 024 Cyclic citrullinated peptide IgG Qn <15 Normal <20 [facility] Comment on above: Order Comment: Speci men Type: BLOOD SPECIMEN Ordering Facility: [facility] Address: [address] [place] [address] Performed By: #### 3 3935-8 #### [facility] CLIA [id number] [address] [place] [address] [address] [id number] [place] Abd Aortic/IVC Duplex scanon 06-26-2024 Abd Aortic/IVC Duplex scan [facility] [address] [place] [address] Abd Aortic/IVC Duplex scan 06/26/24 0912 MR#: [id number] Acct: [id number] Name: SUHA CALIX Rep #: [id number] : 1980 44 From: Harshad Sauceda MD Attending Dr: Dr. Harshad Sauceda MD Status: SHAYAN KAHN Ordering Dr: Harshad Sauceda MD Date: 06/26/24 Location: [facility] Sex: F C Admitted: Reason For Study: HX Lt CIV Stent Inferior Vena Cava Proximal inferior vena cava measures 1.79 x 1.99 cm. in the cross-sectional axis. Proximal inferior vena cava measures 1.92 cm. in the longitudinal axis. Mid inferior vena cava measures 1.47 x 1.51 cm. in the cross-sectional axis. Mid inferior vena cava measures 1.57 cm. in the longitudinal axis. Distal inferior vena cava measures 1.53 x 1.38 cm. in the cross-sectional axis. Distal inferior vena cava measures 1.26 cm. in the longitudinal axis. Bright intraluminal echo noted at mid/dist IVC. The inferior vena cava has spontaneous and pulsatile flow throughout. Left Common Iliac Vein Left common iliac vein measures 1.03 x 1.03 cm. in the cross-sectional axis. Left common iliac vein measures 1.11 cm. in the longitudinal axis. The left common iliac vein has spontaneous and pulsatile flow throughout. Stent noted in Lt CIV. Lt CFV is compressible and spontaneous with normal augmentation. Right Common Iliac Vein Right common iliac vein measures 1.14 x 1.06 cm. in the cross-sectional axis. Right common iliac vein measures 1.20 cm. in the longitudinal axis. The right common iliac vein has spontaneous pulsatile flow throughout. VL/Abd Aortic/IVC Duplex scan Interpretation Summary Patent left common iliac vein stent Patent inferior vena cava and right iliac vein. Pulsatile venous flow throughout. Ordering Physician: Harshad Sauceda Referring Physician: N/A Performed By: Leopoldo Wen, T 06/26/241943 Date Harshad Sauceda MD CC: Dr. Harshad Sauceda MD; DWAYNE MCDANIEL Date Dictated: 06/26/24911 Date Transcribed: 06/26/241943 Squeegee Operator: Signed [facility] 06-17-2024 [facility] Telephone (FMUPCN) SUHA CALIX ([id number]) 1980 F T Date Time Provider Department 06/17/24 DWAYNE MCDANIEL [facility] During your visit today, we recorded the following information about you: Román Mann 06/17/2024 2:12 PM Signed Working of referrals waiting on office notes. Dwayne Mcdaniel MD 06/18/2024 12:27 PM Signed done Román Mann 06/18/2024 1:09 PM Signed Faxed referral, demographics, X-ray, office notes, and labs Dr. Jimenes. Patient advised that office will call to schedule appointment. Faxed referral, demographics, X-ray, office notes, and labs to Junaid. Patient advised that office will call to schedule appointment. Faxed referral, demographics, X-ray, office notes, and labs to Chela. Patient advised that office will call to schedule appointment. Allergies As of Date: 06/17/2024 Noted Allergy Reaction LATEX 03/16/2021 2 - Rash PENICILLINS 03/16/2021 10 - Anaphylaxis TAPE (ADHESIVE TAPE-SILICONES) 06/15/2022 2 - Rash TORADOL (KETOROLAC) 03/16/2021 7 - Swelling Comments: Tongue swelling Date Reviewed: 06/14/2024 Reviewed by: Alysa Shah MA - Fully Assessed Reason for Visit: Referral Information [1400] Cmt: Ortho, Ent, Derm Prescriptions as of 06/18/2024 - amitriptyline (ELAVIL) 10 mg tablet Take 20 mg by mouth daily at bedtime. - eletriptan (RELPAX) 20 mg tablet Take 1 tablet (20 mg) by mouth as needed for migraine headache (see administration instructions). may repeat in 2 hours if necessary - apixaban (ELIQUIS) 5 mg tab(s) Take 1 tablet by mouth two times a day. - tiZANidine (ZANAFLEX) 4 mg tablet Take 0.5-1 tablets by mouth three times a day as needed (muscle spasms). - levothyroxine (SYNTHROID) 112 mcg tablet take 1 tablet daily - pantoprazole DR (PROTONIX) 40 mg tablet Take 1 tablet by mouth once daily. - topiramate (TOPAMAX) 100 mg tablet Take 1 tablet by mouth two times a day. - ergocalciferol 50,000 unit capsule (VITAMIN D2, DRISDOL) Take 1 capsule by mouth one time a week. Use as directed. - dicyclomine (BENTYL) 20 mg tablet TAKE ONE TABLET BY MOUTH THREE TIMES A DAY NEEDED FOR ABDOMINAL PAIN - fluticasone (FLONASE) 50 mcg/actuation nasal spray USE 1 SPRAY IN EACH NOSTRIL ONCE DAILY - polyethylene glycol 3350 (MIRALAX, GLYCOLAX) 17 gram/dose powder Take 17 g by mouth once daily. - ondansetron orally disintegrating (ZOFRAN ODT) 4 mg disintegrating tablet Take 1 tablet by mouth every 8 hours as needed for nausea/vomiting. Problem List As Of Date 06/17/2024 Noted Resolved H/O protein C deficiency [Z86.2] H/O protein S deficiency [Z86.2] Migraine [G43.909] Malignant melanoma (HCC) [C43.9] History of DVT (deep vein thrombosis) [Z86.718] 10/04/2021 Hypothyroidism [E03.9] 04/26/2021 Neck pain [M54.2] 06/14/2022 Right leg pain [M79.604] 06/14/2022 Left leg pain [M79.605] 06/14/2022 Myofascial pain syndrome [M79.18] 06/14/2022 UTI symptoms [R39.9] 08/02/2022 Abdominal pain [R10.9] 10/20/2022 Chronic pain syndrome [G89.4] 12/04/2023 Sacroiliitis (HCC) [M46.1] 12/04/2023 Acute right-sided low back pain with right-side*06/14/2024 Encounter for screening mammogram for breast ca*06/14/2024 Adjustment disorder with mixed anxiety and depr*06/14/2024 Headaches [R51.9] 06/14/2024 Hypothyroidism, unspecified [E03.9] 11/03/2021 Encounter Status:Closed by ROMÁN MANN on [facility]17/24 [facility] Office Visit (FMUPCN ) SUHA CALIX ([id number]) 1980 F T Date Time Provider Department 06/14/24 9:00 AM [facility] your visit today, we recorded the following information about you: Pulse Blood pressure Weight Height 90/minute 98/64 57.2 kg 1.651 m Dwayne Mcdaniel MD 06/18/2024 12:27 PM Signed Suha Calix is a 44 year old female here today for a check up on her medical problems. Concern(s) today include: Joint pains and brain fog. She states this has been going on for a long time and she has seen ENT and Neurology Patient wants a consult to derm and ENT as she did not like her previous ENT. Migraines: Patient has been recently started on amitriptyline for migraines and states some improvement since starting. She continues to feel like she is having some brain fogginess that has been happening for a long time. Patient quit her albaro in April due to all her symptoms. Patient saw neurology and had an MRI ordered. She was also started on amitriptyline Patient saw ENT thinking this could be a problem in her ear. She stated she had felt congested in the past and feels like her sinuses were not draining appropriately. Saw ENT on 05/08/24 and stated it was a quick visit. She states her head feels full at all times. She would like a referral to another ENT. Dentist: xray of bone at top, has dentures, going to oral surgeon hoping that would help Multiple joint pains that have been happening for many years, patient has seen rheumatology in the past and is unsure of what labs were ordered. She has history of DVTS, protein C and S deficiency. LMP: Hysterectomy. Her medications were reviewed today and her list is now up to date. She is compliant on taking her medications :Yes She is tolerating her medication(s) without side effects: Yes She is following an appropriate diet for her medical problems: Yes She is getting some exercise in? No Social History Tobacco Use Smoking status: Former Current packs/day: 0.00 Average packs/day: 1 pack/day for 22.0 years (22.0 ttl pk-yrs) Types: Cigarettes Start date: 03/23/1994 Quit date: 03/23/2016 Years since quittin.2 Smokeless tobacco: Never Vaping Use Vaping status: Never Used Substance Use Topics Alcohol use: Not Currently Drug use: Never Comment: Only medical ihsan Review of Systems HENT: Positive for sinus pressure. Negative for congestion, ear discharge, ear pain, facial swelling, hearing loss, mouth sores, nosebleeds, rhinorrhea, sinus pain, sneezing, sore throat, tinnitus, trouble swallowing and voice change. Brain fogginess Eyes: Negative for photophobia, pain, discharge, redness, itching and visual disturbance. Respiratory: Negative for cough, choking, chest tightness, shortness of breath, wheezing and stridor. Cardiovascular: Negative for chest pain, palpitations and leg swelling. Gastrointestinal: Negative for abdominal distention, abdominal pain, constipation, diarrhea, nausea and vomiting. Endocrine: Negative. Genitourinary: Negative for dysuria, frequency and urgency. Musculoskeletal: Positive for arthralgias. Skin: Negative. Neurological: Positive for headaches. Negative for dizziness, tremors, seizures, facial asymmetry, speech difficulty, weakness, light-headedness and numbness. Psychiatric/Behavioral: Negative. PHYSICAL EXAM BP 98/64 Pulse 90 Ht 5' 5 (1.65m) Wt 126 lb (57.2kg) SpO2 98% LMP 03/08/2022 BMI 20.97 kg/(m2). Physical Exam Constitutional: Appearance: Normal appearance. HENT: Head: Normocephalic and atraumatic. Right Ear: Tympanic membrane, ear canal and external ear normal. There is no impacted cerumen. Left Ear: Tympanic membrane, ear canal and external ear normal. There is no impacted cerumen. Nose: Nose normal. No congestion or rhinorrhea. Mouth/Throat: Mouth: Mucous membranes are moist. Pharynx: No oropharyngeal exudate or posterior oropharyngeal erythema. Eyes: Conjunctiva/sclera: Conjunctivae normal. Cardiovascular: Rate and Rhythm: Normal rate and regular rhythm. Pulses: Normal pulses. Heart sounds: Normal heart sounds. No murmur heard. No friction rub. Pulmonary: Effort: Pulmonary effort is normal. No respiratory distress. Breath sounds: Normal breath sounds. No wheezing. Abdominal: General: Abdomen is flat. Bowel sounds are normal. Palpations: Abdomen is soft. Musculoskeletal: General: Tenderness present. No swelling. Normal range of motion. Cervical back: Neck supple. Lymphadenopathy: Cervical: No cervical adenopathy. Skin: General: Skin is warm. Coloration: Skin is not jaundiced. Neurological: General: No focal deficit present. Mental Status: She is alert and oriented to person, place, and time. Motor: No weakness. Coordination: Coordination normal. Gait: Gait normal. Deep Tendon Reflexes: Ref (more content not included)... [facility] OPERATIVE NOon 06-11-2024 OPERATIVE NO HNO ID: [id number] Author: MISAEL WALL MD Service: Pain Management Author Type: Anesthesiologist Type: Operative Report Filed: 06/11/2024 10:27 Note Text: PATIENT: Suha Calix SURGEON: Primary: Misael Wall MD : 1980 DATE OF SURGERY: June 11, 2024 PRE-OP Diagnosis: Myofascial pain syndrome [M79.18] POST-OP Diagnosis: Same Procedure: Procedure(s): INJECTION TRIGGER POINT THREE OR MORE MUSCLES (neck/upper back) Anesthesia Type: Local The following procedure was performed in the office today: Trigger Point Injection(s): ([id number]) -Informed consent was obtained and all patient questions were answered. After discussing the risks, benefits, prognosis, and alternatives to the procedure, the patient expressed understanding and wished to proceed. A pre-procedural pause was conducted to verify: correct patient identity, procedure to be performed and as applicable, correct side and site, correct patient position, and any special requirements. -Procedure: The trigger points injections were performed today in the office with aseptic technique. The patient tolerated the procedure well and was discharged after an appropriate period of observation. Trigger points injected (#): 10 Muscle groups: Bilateral trapezius, bilateral thoracic paraspinous, bilateral lower cervical paraspinous Injectate: total of 10 mL of 0.25% bupivacaine; distributed equally at each site. [facility] 06-07-2024 [facility] Telephone (MRPAIN) SUHA CALIX ([id number]) 1980 F T Date Time Provider Department 06/07/24 MISAEL WALL During your visit today, we recorded the following information about you: Kaylee Jimenez 06/07/2024 9:38 AM Signed I left a message for Suha to inform her the procedure on June 11 is scheduled for 2:00. I made a mistake and the 9:30 was taken. Kaylee Jimenez June 07, 2024 9:38 AM Kaylee Jimenez 06/10/2024 1:01 PM Signed I left a message regarding the information below. Kaylee Jimenez June 10, 2024 1:01 PM Allergies As of Date: 06/07/2024 Noted Allergy Reaction LATEX 03/16/2021 2 - Rash PENICILLINS 03/16/2021 10 - Anaphylaxis TAPE (ADHESIVE TAPE-SILICONES) 06/15/2022 2 - Rash TORADOL (KETOROLAC) 03/16/2021 7 - Swelling Comments: Tongue swelling Date Reviewed: 06/05/2024 Reviewed by: Rosalina Hilton APRN.PREPARED [employer]S SERVICE TEAM MEMBER - Fully Assessed Reason for Visit: Change in time for June 11 procedure [Other] Prescriptions as of 06/10/2024 - DULoxetine (CYMBALTA) 60 mg capsule Take 1 capsule by mouth once daily. - tiZANidine (ZANAFLEX) 4 mg tablet Take 0.5-1 tablets by mouth three times a day as needed (muscle spasms). - levothyroxine (SYNTHROID) 112 mcg tablet take 1 tablet daily - apixaban (ELIQUIS) 5 mg tab(s) Take 1 tablet by mouth two times a day. - eletriptan (RELPAX) 20 mg tablet Take 1 tablet (20 mg) by mouth as needed for migraine headache (see administration instructions). may repeat in 2 hours if necessary - pantoprazole DR (PROTONIX) 40 mg tablet Take 1 tablet by mouth once daily. - topiramate (TOPAMAX) 100 mg tablet Take 1 tablet by mouth two times a day. - ergocalciferol 50,000 unit capsule (VITAMIN D2, DRISDOL) Take 1 capsule by mouth one time a week. Use as directed. - dicyclomine (BENTYL) 20 mg tablet TAKE ONE TABLET BY MOUTH THREE TIMES A DAY NEEDED FOR ABDOMINAL PAIN - fluticasone (FLONASE) 50 mcg/actuation nasal spray USE 1 SPRAY IN EACH NOSTRIL ONCE DAILY - ibuprofen (MOTRIN) 600 mg tablet Take 1 tablet by mouth every 6 hours. Take with food. - polyethylene glycol 3350 (MIRALAX, GLYCOLAX) 17 gram/dose powder Take 17 g by mouth once daily. - ondansetron orally disintegrating (ZOFRAN ODT) 4 mg disintegrating tablet Take 1 tablet by mouth every 8 hours as needed for nausea/vomiting. Problem List As Of Date 06/07/2024 Noted Resolved H/O protein C deficiency [Z86.2] H/O protein S deficiency [Z86.2] Migraine [G43.909] Malignant melanoma (HCC) [C43.9] History of DVT (deep vein thrombosis) [Z86.718] 10/04/2021 Hypothyroidism [E03.9] 04/26/2021 Neck pain [M54.2] 06/14/2022 Right leg pain [M79.604] 06/14/2022 Left leg pain [M79.605] 06/14/2022 Myofascial pain syndrome [M79.18] 06/14/2022 UTI symptoms [R39.9] 08/02/2022 Abdominal pain [R10.9] 10/20/2022 Chronic pain syndrome [G89.4] 12/04/2023 Sacroiliitis (HCC) [M46.1] 12/04/2023 Encounter Status:Closed by KAYLEE JIMENEZ on 06/10/24 [facility] Sherry 06-05-2024 [facility] Office Visit (FMUPCN ) SUHA CALIX ([id number]) 1980 F CHT Date Time Provider Department 06/05/24 8:00 AM ROSALINA HILTON [facility] During your visit today, we recorded the following information about you: Pulse Blood pressure Weight Height 94/minute 94/68 54 kg 1.651 m Rosalina Hilton, DATA SCIENCE AND IOT MANAGER.PREPARED FOODS SERVICE TEAM MEMBER 06/05/2024 8:43 AM Signed HPI DEPRESSION / ANXIETY FOLLOW UP Suha Calix is a 44 year old female who returns for follow up of Depression, Anxiety, Insomnia Seen 05/07/2024 started Cymbalta Depressed mood /sadness: Partial relief Seeing Neurology for migraines, started new medication Did see ENT I felt like he blew me off CT sinuses Seeing Dentist for issues with dentures Irritable / grumpy:Improved Energy level: Fair Appetite: Good Significant weight loss or gain: No Concentration: Fair Decreased interest in activities: Improved, worried about recent test results Difficulty falling asleep:Worrying Difficulty staying asleep / waking in middle of the night: Awake worrying Restlessness:No Thoughts of hurting self: No Previously tried to hurt self: No Thoughts of hurting others: No Anxiety symptoms Worrying alot (more than most people, worries about minor things): Yes, tearfullness Panic attacks (chest pain, heart racing, trouble breathing, feeling like something bad going to happen): No Treatment Current medication: Yes Taking daily: Yes Medication helping symptoms: Partially Medication side effects: No Counseling: No ALLERGIES Allergen Reactions Latex Rash Penicillins Anaphylaxis Tape [Adhesive Tape* Rash Toradol [Ketorolac] Swelling Tongue swelling PAST MEDICAL HISTORY No date: Anxiety and depression No date: DVT (deep venous thrombosis) (HCC) No date: GERD (gastroesophageal reflux disease) No date: H/O protein C deficiency No date: H/O protein S deficiency 10/04/2021: History of DVT (deep vein thrombosis) No date: Hypothyroid No date: Malignant melanoma (HCC) No date: Melanoma (HCC) No date: Migraines 10/04/2021: Other specified hypothyroidism PAST SURGICAL HISTORY 06/28/2023: ARTERY TO VEIN SHUNT Comment: ILIAC. [facility]: SECTION SINGLE 01/16/2023: COLONOSCOPY SCREENING 01/16/2023: EGD W/O [facility] SPEC VARICIES INJ 03/23/2013: ESOPHAGOGASTRODUODENOSCOPY TRANSORAL DIAGNOSTIC Comment: EGD No date: HAND SURGERY HX; Left Comment: trigger finger release 3 rd finger 10/18/2021: HYSTEROSCOPY, DIAGNOSTIC (SEPARATE 2011: IR IVC FILTER PLACEMENT No date: MALIGNANT MELANOMA - WIDE EXCISION IN ANY AREA AND MUST INCLUDE > 1CM MARGINS AND LAYERED CLOSURE No date: TONSILLECTOMY AND ADENOIDECTOMY 03/08/2022: VAGINAL HYSTERECTOMY Comment: total FAMILY HISTORY Problem Relation Age of Onset Clotting Disorder Father Protein C and S deficiency No Known Problems Mother Clotting Disorder Paternal Grandfather Anesthesia Problems No Family History Social History Tobacco Use Smoking status: Former Packs/day: 1.00 Years: 22.00 Additional pack years: 0.00 Total pack years: 22.00 Types: Cigarettes Quit date: 03/23/2016 Years since quittin.2 Smokeless tobacco: Never Vaping Use Vaping Use: Never used Substance Use Topics Alcohol use: Not Currently Drug use: Never Comment: Only medical ihsan Current Outpatient Medications Medication Sig Dispense Refill tiZANidine (ZANAFLEX) 4 mg tablet Take 0.5-1 tablets by mouth three times a day as needed (muscle spasms). 90 tablet 3 levothyroxine (SYNTHROID) 112 mcg tablet take 1 tablet daily 90 tablet 3 apixaban (ELIQUIS) 5 mg tab(s) Take 1 tablet by mouth two times a day. 60 tablet 1 eletriptan (RELPAX) 20 mg tablet Take 1 tablet (20 mg) by mouth as needed for migraine headache (see administration instructions). may repeat in 2 hours if necessary 10 tablet 5 DULoxetine (CYMBALTA) 30 mg capsule Take 1 capsule by mouth once daily. [address] (PROTONIX) 40 mg tablet Take 1 tablet by mouth once daily. 90 tablet 1 topiramate (TOPAMAX) 100 mg tablet Take 1 tablet by mouth two times a day. 180 tablet 1 ergocalciferol 50,000 unit capsule (VITAMIN D2, DRISDOL) Take 1 capsule by mouth one time a week. Use as directed. 12 capsule 1 dicyclomine (BENTYL) 20 mg tablet TAKE ONE TABLET BY MOUTH THREE TIMES A DAY NEEDED FOR ABDOMINAL PAIN 270 tablet 1 fluticasone (FLONASE) 50 mcg/actuation nasal spray USE 1 SPRAY IN EACH NOSTRIL ONCE DAILY 16 mL 1 ibuprofen (MOTRIN) 600 mg tablet Take 1 tablet by mouth every 6 hours. Take with food. 60 tablet 0 polyethylene glycol 3350 (MIRALAX, GLYCOLAX) 17 gram/dose powder Take 17 g by mouth once daily. 510 g 4 ondansetron orally disintegrating (ZOFRAN ODT) 4 mg disintegrating tablet Take 1 tablet by mouth every 8 hours as needed for nausea/vomiting. 30 tablet 5 No current facility-administ (more content not included)... [facility] 06-05-2024 [facility] Telephone ([facility]) SUHA CALIX ([id number]) 1980 F T Date Time Provider Department 06/05/24 ROSALINA HILTON [facility] During your visit today, we recorded the following information about you: Joshua Riley 06/05/2024 9:01 AM Signed Referral demographics and office notes have been faxed to Dr. Quiroga. Patient advised their office will reach out to schedule. Allergies As of Date: 06/05/2024 Noted Allergy Reaction LATEX 03/16/2021 2 - Rash PENICILLINS 03/16/2021 10 - Anaphylaxis TAPE (ADHESIVE TAPE-SILICONES) 06/15/2022 2 - Rash TORADOL (KETOROLAC) 03/16/2021 7 - Swelling Comments: Tongue swelling Date Reviewed: 06/05/2024 Reviewed by: Rosalina Hilton, REDD.[facility] - Fully Assessed Reason for Visit: Referral Information [1957] Cmt: ENT Prescriptions as of 06/05/2024 - DULoxetine (CYMBALTA) 60 mg capsule Take 1 capsule by mouth once daily. - tiZANidine (ZANAFLEX) 4 mg tablet Take 0.5-1 tablets by mouth three times a day as needed (muscle spasms). - levothyroxine (SYNTHROID) 112 mcg tablet take 1 tablet daily - apixaban (ELIQUIS) 5 mg tab(s) Take 1 tablet by mouth two times a day. - eletriptan (RELPAX) 20 mg tablet Take 1 tablet (20 mg) by mouth as needed for migraine headache (see administration instructions). may repeat in 2 hours if necessary - pantoprazole DR (PROTONIX) 40 mg tablet Take 1 tablet by mouth once daily. - topiramate (TOPAMAX) 100 mg tablet Take 1 tablet by mouth two times a day. - ergocalciferol 50,000 unit capsule (VITAMIN D2, DRISDOL) Take 1 capsule by mouth one time a week. Use as directed. - dicyclomine (BENTYL) 20 mg tablet TAKE ONE TABLET BY MOUTH THREE TIMES A DAY NEEDED FOR ABDOMINAL PAIN - fluticasone (FLONASE) 50 mcg/actuation nasal spray USE 1 SPRAY IN EACH NOSTRIL ONCE DAILY - ibuprofen (MOTRIN) 600 mg tablet Take 1 tablet by mouth every 6 hours. Take with food. - polyethylene glycol 3350 (MIRALAX, GLYCOLAX) 17 gram/dose powder Take 17 g by mouth once daily. - ondansetron orally disintegrating (ZOFRAN ODT) 4 mg disintegrating tablet Take 1 tablet by mouth every 8 hours as needed for nausea/vomiting. Problem List As Of Date 06/05/2024 Noted Resolved H/O protein C deficiency [Z86.2] H/O protein S deficiency [Z86.2] Migraine [G43.909] Malignant melanoma (HCC) [C43.9] History of DVT (deep vein thrombosis) [Z86.718] 10/04/2021 Hypothyroidism [E03.9] 04/26/2021 Neck pain [M54.2] 06/14/2022 Right leg pain [M79.604] 06/14/2022 Left leg pain [M79.605] 06/14/2022 Myofascial pain syndrome [M79.18] 06/14/2022 UTI symptoms [R39.9] 08/02/2022 Abdominal pain [R10.9] 10/20/2022 Chronic pain syndrome [G89.4] 12/04/2023 Sacroiliitis (HCC) [M46.1] 12/04/2023 Encounter Status:Closed by JOSHUA RILEY on [facility] SU[facility] CAL[facility] ([id number]) 1980 F [facility] Date Time Provider Department 06/05/24 ROSALINA HILTON [facility] During your visit today, we recorded the following information about you: Magalys Quintero 06/05/2024 3:15 PM Signed Patient calls today. Reason for Call: patient called and stated she wanted to transfer to Dr Mcdaniel as she wants to be seen by a Dr because of her many health issues. Appointment scheduled with Dr Mcdaniel. Patient then stated how do I go about getting in touch with the practice clinician regarding a provider Advised message would be sent and patients call back number was verified. Please call patient at [phone] (home) [phone] (cell) Patient last appointment: 06/05/2024 Fab Galicia MA 06/06/2024 11:17 AM Signed I called and spoke with patient. Fab Vyas MA Allergies As of Date: 06/05/2024 Noted Allergy Reaction LATEX 03/16/2021 2 - Rash PENICILLINS 03/16/2021 10 - Anaphylaxis TAPE (ADHESIVE TAPE-SILICONES) 06/15/2022 2 - Rash TORADOL (KETOROLAC) 03/16/2021 7 - Swelling Comments: Tongue swelling Date Reviewed: 06/05/2024 Reviewed by: Rosalina Hilton APRN.[facility] - Fully Assessed Reason for Visit: requesting call [Other] Prescriptions as of 06/06/2024 - DULoxetine (CYMBALTA) 60 mg capsule Take 1 capsule by mouth once daily. - tiZANidine (ZANAFLEX) 4 mg tablet Take 0.5-1 tablets by mouth three times a day as needed (muscle spasms). - levothyroxine (SYNTHROID) 112 mcg tablet take 1 tablet daily - apixaban (ELIQUIS) 5 mg tab(s) Take 1 tablet by mouth two times a day. - eletriptan (RELPAX) 20 mg tablet Take 1 tablet (20 mg) by mouth as needed for migraine headache (see administration instructions). may repeat in 2 hours if necessary - pantoprazole DR (PROTONIX) 40 mg tablet Take 1 tablet by mouth once daily. - topiramate (TOPAMAX) 100 mg tablet Take 1 tablet by mouth two times a day. - ergocalciferol 50,000 unit capsule (VITAMIN D2, DRISDOL) Take 1 capsule by mouth one time a week. Use as directed. - dicyclomine (BENTYL) 20 mg tablet TAKE ONE TABLET BY MOUTH THREE TIMES A DAY NEEDED FOR ABDOMINAL PAIN - fluticasone (FLONASE) 50 mcg/actuation nasal spray USE 1 SPRAY IN EACH NOSTRIL ONCE DAILY - ibuprofen (MOTRIN) 600 mg tablet Take 1 tablet by mouth every 6 hours. Take with food. - polyethylene glycol 3350 (MIRALAX, GLYCOLAX) 17 gram/dose powder Take 17 g by mouth once daily. - ondansetron orally disintegrating (ZOFRAN ODT) 4 mg disintegrating tablet Take 1 tablet by mouth every 8 hours as needed for nausea/vomiting. Problem List As Of Date 06/05/2024 Noted Resolved H/O protein C deficiency [Z86.2] H/O protein S deficiency [Z86.2] Migraine [G43.909] Malignant melanoma (HCC) [C43.9] History of DVT (deep vein thrombosis) [Z86.718] 10/04/2021 Hypothyroidism [E03.9] 04/26/2021 Neck pain [M54.2] 06/14/2022 Right leg pain [M79.604] 06/14/2022 Left leg pain [M79.605] 06/14/2022 Myofascial pain syndrome [M79.18] 06/14/2022 UTI symptoms [R39.9] 08/02/2022 Abdominal pain [R10.9] 10/20/2022 Chronic pain syndrome [G89.4] 12/04/2023 Sacroiliitis (HCC) [M46.1] 12/04/2023 Encounter Status:Closed by FAB VYAS on 06/06/24 [facility] XR CERVICAL 4V AP/LAT/OBLon 06-05-2024 XR CERVICAL 4V AP/LAT/OBL * * *Final Report* * * DATE OF EXAM: Jun 05 2024 9:36AM UDX [id number] - XR CERVICAL 4V AP/LAT/OBL / PROCEDURE REASON: Neck pain * * * * Physician Interpretation * * * * EXAMINATION: XR CERVICAL 4V AP/LAT/OBL CLINICAL HISTORY: Neck pain Technique: XR CERVICAL 4V AP/LAT/OBL -- NOT APPLICABLE with 4 views on 4 images COMPARISON: 05/03/2021 x-rays RESULT: Counting reference: Craniocervical junction. Assume 7 cervical vertebrae with counting from the craniocervical junction Curvature: Straightening of the normal cervical lordosis. Alignment: No significant spondylolisthesis. Fracture: No visible acute fracture. Bone marrow: No grossly visible destructive osseous lesion. Incidentally noted moderate hypertrophy of the right-sided C7 transverse process, as before. Degenerative changes: Reidentified up to mild disc height loss at C5-C6, and probable minimal right-sided neural foraminal encroachment. Mild facet hypertrophic changes suggested at the lower levels. Cross-sectional imaging may be considered for further evaluation as clinically warranted. Other: Normal prevertebral soft tissue width. IMPRESSION: Cervical spine plain radiographs show mild degenerative spine changes as above. Other details above. Anatomic variant (Cervical): None. Assume 7 cervical vertebrae with counting from the craniocervical junction. Squeegee Operator: PSCB Transcribe Date/Time: Jun 07 2024 5:27P Dictated by : CHASIDY JOHNSON MD This examination was interpreted and the report reviewed and electronically signed by: CHASIDY JOHNSON MD on Jun 07 2024 5:29PM EST [id number] [facility] CNOVon 05-27-2024 CNOV Office Visit (PAMMJK ) SUHA CALIX ([id number]) 1980 F [facility] Date Time Provider Department 05/27/24 2:30 PM MADISON DENNY During your visit today, we recorded the following information about you: Temperature Pulse Respiration Blood pressure 97.7 degrees 84/minute 16/minute 102/70 Weight Height 55.3 kg 1.651 m Gwendolyn Lawson LPN 05/27/2024 2:48 PM Signed Last seen 05/18/23 Pain - low back pain, now neck (new job, I'm working long hours, pain started again) Meds - tizanidine - ran out 2 months ago, compounding cream - last used this am, 2 x day Efficacy - Helps some. Side effects - Drowsy from tizanidine Ten's - Using daily - helps PT - 14 yrs go for neck, 2021 - low back Last UDS - no narcotics Last injection - (05/30/23 cx insurance denied) 01/25/22- TPI Madison Denny PA-C 05/27/2024 3:24 PM Signed This note was created using NoteWriter. Subjective Suha Calix is a 44 year old female. The patient primarily being seen for low back pain, also new pain in neck Patient was last seen on: 05/18/23 At that time, the treatment plan was: see notes Current Meds: tizanidine - two months ago - ran out, compounded cream - am Efficacy: some Side effects: drowsy TENS unit: yes How often used: daily Benefit: helps Physical Therapy: 14 years ago for neck, 2021 - back Last UDS: Last injection: 01/25/22 - TPI OARRS reviewed At the present time, the patient reports some benefit with her present analgesic therapy. She states that the tizanidine makes her drowsy. Since her previous visit, she denies any hospitalizations or ER visits. We had wanted to do SI injections but these were denied by her insurance and then she has not been back since last April. She has a new job and states that working long hours have aggravated her pain levels. She is also now having pain in her neck. She has previously had trigger point injections done and states she believes she got at least a month of over 50% relief. She is interested in repeating these. 05/27/2024 05/27/2024 INTAKE PAIN ASSESSMENT Are you having pain associated with your visit today? Yes, Provider notified Pain Scales Verbal (Numeric Rating or Visual Analog Scale) Verbal (Numeric Rating or Visual Analog Scale) Pain Level 6 5 Pain Location Neck-Posterior Back-Lower Description Sharp;Tightness Spasm;Throbbing Frequency Continuous Intermittent Intervention/Comfort measure Reposition;Medication;Relax ation;Heat;Massage Medication;Reposition;Relax ation;Massage Back Pain Pertinent negatives include no fever. PAST MEDICAL HISTORY No date: Anxiety and depression No date: DVT (deep venous thrombosis) (HCC) No date: GERD (gastroesophageal reflux disease) No date: H/O protein C deficiency No date: H/O protein S deficiency 10/04/2021: History of DVT (deep vein thrombosis) No date: Hypothyroid No date: Malignant melanoma (HCC) No date: Melanoma (HCC) No date: Migraines 10/04/2021: Other specified hypothyroidism PAST SURGICAL HISTORY 06/28/2023: ARTERY TO VEIN SHUNT Comment: ILIAC. [facility]: SECTION SINGLE 01/16/2023: COLONOSCOPY SCREENING 01/16/2023: [facility] SPEC VARICIES INJ 03/23/2013: ESOPHAGOGASTRODUODENOSCOPY TRANSORAL DIAGNOSTIC Comment: EGD No date: HAND SURGERY HX; Left Comment: trigger finger release 3 rd finger 10/18/2021: HYSTEROSCOPY, DIAGNOSTIC (SEPARATE 2011: IR IVC FILTER PLACEMENT No date: MALIGNANT MELANOMA - WIDE EXCISION IN ANY AREA AND MUST INCLUDE > 1CM MARGINS AND LAYERED CLOSURE No date: TONSILLECTOMY AND ADENOIDECTOMY 03/08/2022: VAGINAL HYSTERECTOMY Comment: total Social History Tobacco Use Smoking status: Former Packs/day: 1.00 Years: 22.00 Additional pack years: 0.00 Total pack years: 22.00 Types: Cigarettes Quit date: 03/23/2016 Years since quittin.1 Smokeless tobacco: Never Vaping Use Vaping Use: Never used Substance Use Topics Alcohol use: Not Currently Drug use: Never Comment: Only medical marijuania Review of Systems Constitutional: Negative for fever and unexpected weight change. Musculoskeletal: Positive for back pain. + neck pain, back pain, joint pain/swelling, muscle cramps/weakness, stiffness, arthritis, and leg pain with exertion. Objective BP 102/70 (BP Site: Left Arm, BP Position: Sitting, BP Cuff Size: Large Adult) Pulse 84 Temp 36.5 ?C (97.7 ?F) (Temporal) Resp 16 Ht 165.1 cm (5' 5) Wt 55.3 kg (122 lb) LMP 03/08/2022 SpO2 96% BMI 20.30 kg/m? Physical Exam Vitals and nursing note reviewed. Constitutional: Appearance: Normal appearance. She is well-developed, well-groomed and normal weight. HENT: Head: Normocephalic and atraumatic. Right Ear: Hearing normal. Left Ear: Hearing normal. Eyes: Conjunctiva/sclera: Conjunctivae normal. Musculoskeletal: Comments: She (more content not included)... Normal [facility] CT SINUS BRAIN LABon 07-30-[address] SINUS BRAIN LAB ORIGINAL EXAMINATION: CT Sinuses without intravenous contrast TECHNIQUE: Axial noncontrast CT of the head and paranasal sinuses was performed. Coronal and sagittal reconstructions. DICOM images are available. One or more of the following dose reduction techniques were used: automated exposure control, adjustment of the mA and/or kV according to patient size, or use of iterative reconstruction. COMPARISON: None. HISTORY: ORDERING SYSTEM PROVIDED HISTORY: Reason for Exam: Chronic sinusitis, pressure headaches, history of melanoma (left shoulder). FINDINGS: Maxillary sinuses: Clear. Sphenoid sinuses: Clear. Ethmoid sinuses: Clear. Frontal sinuses: Clear. Frontoethmoidal recesses: Clear. Sphenoethmoidal recesses: Clear. Ostiomeatal units: Clear. Fluid levels: None. Nasal septum: Midline. Nasopharynx: Unremarkable. Nasal cavity: Unremarkable. Mastoid air cells: Clear. Orbits: Unremarkable. Visualized brain: No acute pathology. Soft tissues: Unremarkable. Bones: Unremarkable. Additional comment: The patient is edentulous. 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 IMPRESSION: 1. No CT evidence of acute or chronic sinusitis. 2. 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 Interpreted by: Charlee Paez MD Preliminary Report By: Charlee Paez MD Electronically signed By Charlee Paez MD Dictated Date: 05/21/2024 9:31:53 AM Prelim Date: 05/21/2024 9:36:34 AM Sign Date: 05/21/2024 9:36:34 AM Ordering Provider: GROVER Jett [facility] ([place]) ZEprimitivo 05-07-2024 CN Office Visit (FMUPCN ) FIFISUHA ([id number]) 1980 F T Date Time Provider Department 05/07/24 7:00 AM ROSALINA HILTON [facility] During your visit today, we recorded the following information about you: Pulse Blood pressure Weight Height 79/minute 102/70 55.2 kg 1.651 m Rosalina Hilton, REDD.[employer]AM MEMBER 05/07/2024 9:47 AM Addendum Suha Zelyaa Fifi is a 44 year old female here today for a check up on her ER follow up CP Concern(s) today include: Follow up ER Her medications were reviewed today and her list is now up to date. She is compliant on taking her medications :Yes She She is tolerating her medication(s) without side effects: Yes ER Follow Up: Seen [facility] ER 05/02/2024 with complaints left-sided chest pain with movement and deep inspiration Onset pain and symptoms one week Labs reviewed from ER, no concerns Chest XR 05/02/2024: IMPRESSION: . No acute process. EKG 05/02/2024: Impression Sinus bradycardia Possible Left atrial enlargement Borderline ECG No previous ECGs available Seen this office 04/29/2024, completed prednisone and tcontinues antibiotic No reported injury Hx clotting disorder and taking Elquis, no missed dosages Pain currently head congestion, increased nasal drainage, chest hurts ribs hurt from coughing No CP but tightness No reported SOB Fever and chills off and on Has appointment tomorrow see ENT Using Flonase daily Tearful, states I quit my job yesterday with all my health issues reports feeling frustrated Reports with sinuses increased migraines. States feels better since quit job. Denies this is NOT worst headache ever, pain headache 7-8 average Has taken Relpax as needed and dose improve pain partially Has slept very little past 2 days Has not seen Hematology recently Hx anxiety and depression, PHQ positive today and she is tearful, anxious ALLERGIES Allergen Reactions Latex Rash Penicillins Anaphylaxis Tape [Adhesive Tape* Rash Toradol [Ketorolac] Swelling Tongue swelling PAST MEDICAL HISTORY Diagnosis Date Anxiety and depression DVT (deep venous thrombosis) (HCC) GERD (gastroesophageal reflux disease) H/O protein C deficiency H/O protein S deficiency History of DVT (deep vein thrombosis) 10/04/2021 Hypothyroid Malignant melanoma (HCC) Melanoma (HCC) Migraines Other specified hypothyroidism 10/04/2021 PAST SURGICAL HISTORY Procedure Laterality Date SECTION SINGLE 1997 COLONOSCOPY SCREENING 01/16/2023 EGD W/O [facility] SPEC VARICIES INJ 01/16/2023 ESOPHAGOGASTRODUODENOSCOPY TRANSORAL DIAGNOSTIC 03/23/2013 EGD HAND SURGERY HX Left trigger finger release 3 rd finger HYSTEROSCOPY, DIAGNOSTIC (SEPARATE 10/18/2021 IR IVC FILTER PLACEMENT 2010 MALIGNANT MELANOMA - WIDE EXCISION IN ANY AREA AND MUST INCLUDE > 1CM MARGINS AND LAYERED CLOSURE TONSILLECTOMY AND ADENOIDECTOMY VAGINAL HYSTERECTOMY 03/08/2022 total FAMILY HISTORY Problem Relation Age of Onset Clotting Disorder Father Protein C and S deficiency No Known Problems Mother Clotting Disorder Paternal Grandfather Anesthesia Problems No Family History Social History Tobacco Use Smoking status: Former Packs/day: 1.00 Years: 22.00 Additional pack years: 0.00 Total pack years: 22.00 Types: Cigarettes Quit date: 03/23/2016 Years since quittin.1 Smokeless tobacco: Never Vaping Use Vaping Use: Never used Substance Use Topics Alcohol use: Not Currently Drug use: Never Current Outpatient Medications Medication Sig Dispense Refill doxycycline hyclate (VIBRAMYCIN) 100 mg capsule Take 1 capsule (100 mg) by mouth two times a day for 10 days. 20 capsule 0 eletriptan (RELPAX) 20 mg tablet Take 1 tablet (20 mg) by mouth as needed for migraine headache (see administration instructions). may repeat in 2 hours if necessary 10 tablet 5 apixaban (ELIQUIS) 5 mg tab(s) Take 5 mg by mouth two times a day. pantoprazole DR (PROTONIX) 40 mg tablet Take 1 tablet by mouth once daily. 90 tablet 1 topiramate (TOPAMAX) 100 mg tablet Take 1 tablet by mouth two times a day. 180 tablet 1 levothyroxine (SYNTHROID) 112 mcg tablet Take 1 tablet by mouth once daily. 90 tablet 0 ergocalciferol 50,000 unit capsule (VITAMIN D2, DRISDOL) Take 1 capsule by mouth one time a week. Use as directed. 12 capsule 1 tiZANidine (ZANAFLEX) 4 mg tablet Take 0.5-1 tablets by mouth three times daily as needed. 270 tablet 1 dicyclomine (BENTYL) 20 mg tablet TAKE ONE TABLET BY MOUTH THREE TIMES A DAY NEEDED FOR ABDOMINAL PAIN 270 tablet 1 fluticasone (FLONASE) 50 mcg/actuation nasal spray USE 1 SPRAY IN EACH NOSTRIL ONCE DAILY 16 mL 1 ibuprofen (MOTRIN) 600 mg tablet Take 1 tablet by mouth every 6 hours. Take with food. 60 tablet 0 polyethylene glycol 3350 (MIRALAX, GLYCOLAX) 17 gram/dose powder Take 17 g by mouth once daily. 510 g 4 onda (more content not included)... [facility] 05-07-2024 [facility] Telephone ([facility]) SUHA CALIX ([id number]) 1980 F [facility] Date Time Provider Department 05/07/24 ROSALINA HILTON [facility] During your visit today, we recorded the following information about you: Román Mann 05/07/2024 1:01 PM Signed Faxed referral, demographics, office notes, and labs to Dr. Nunez. Patient advised that office will call to schedule appointment. Román Mann Allergies As of Date: 05/07/2024 Noted Allergy Reaction LATEX 03/16/2021 2 - Rash PENICILLINS 03/16/2021 10 - Anaphylaxis TAPE (ADHESIVE TAPE-SILICONES) 06/15/2022 2 - Rash TORADOL (KETOROLAC) 03/16/2021 7 - Swelling Comments: Tongue swelling Date Reviewed: 05/07/2024 Reviewed by: Liz Odom MA - Fully Assessed Reason for Visit: Referral Information [2312] Cmt: Neuro Prescriptions as of 05/07/2024 - DULoxetine (CYMBALTA) 30 mg capsule Take 1 capsule by mouth once daily. - cefdinir (OMNICEF) 300 mg capsule Take 1 capsule by mouth two times a day for 10 days. - predniSONE (DELTASONE) 20 mg tablet Take 1 tablet by mouth two times a day for 5 days. - tiZANidine (ZANAFLEX) 4 mg tablet Take 0.5-1 tablets by mouth three times a day as needed. - eletriptan (RELPAX) 20 mg tablet Take 1 tablet (20 mg) by mouth as needed for migraine headache (see administration instructions). may repeat in 2 hours if necessary - apixaban (ELIQUIS) 5 mg tab(s) Take 5 mg by mouth two times a day. - pantoprazole DR (PROTONIX) 40 mg tablet Take 1 tablet by mouth once daily. - topiramate (TOPAMAX) 100 mg tablet Take 1 tablet by mouth two times a day. - levothyroxine (SYNTHROID) 112 mcg tablet Take 1 tablet by mouth once daily. - ergocalciferol 50,000 unit capsule (VITAMIN D2, DRISDOL) Take 1 capsule by mouth one time a week. Use as directed. - dicyclomine (BENTYL) 20 mg tablet TAKE ONE TABLET BY MOUTH THREE TIMES A DAY NEEDED FOR ABDOMINAL PAIN - fluticasone (FLONASE) 50 mcg/actuation nasal spray USE 1 SPRAY IN EACH NOSTRIL ONCE DAILY - ibuprofen (MOTRIN) 600 mg tablet Take 1 tablet by mouth every 6 hours. Take with food. - polyethylene glycol 3350 (MIRALAX, GLYCOLAX) 17 gram/dose powder Take 17 g by mouth once daily. - ondansetron orally disintegrating (ZOFRAN ODT) 4 mg disintegrating tablet Take 1 tablet by mouth every 8 hours as needed for nausea/vomiting. Problem List As Of Date 05/07/2024 Noted Resolved H/O protein C deficiency [Z86.2] H/O protein S deficiency [Z86.2] Migraine [G43.909] Malignant melanoma (HCC) [C43.9] History of DVT (deep vein thrombosis) [Z86.718] 10/04/2021 Hypothyroidism [E03.9] 04/26/2021 Neck pain [M54.2] 06/14/2022 Right leg pain [M79.604] 06/14/2022 Left leg pain [M79.605] 06/14/2022 Myofascial pain syndrome [M79.18] 06/14/2022 UTI symptoms [R39.9] 08/02/2022 Abdominal pain [R10.9] 10/20/2022 Chronic pain syndrome [G89.4] 12/04/2023 Sacroiliitis (HCC) [M46.1] 12/04/2023 Encounter Status:Closed by ROMÁN MANN on 05/07/24 [facility] ([id number]) 1980 F [facility] Date Time Provider Department 05/06/24 ROSALINA HILTON [facility] During your visit today, we recorded the following information about you: LarrabeeThierry bess 05/06/2024 10:47 AM Signed Patient calls today. Reason for Call: She was seen at [facility] ER 05/02/24. She also was seen in office that Monday for the same symptoms and she is not improving and is getting worse. She said she feels like she is in a fog and still having issues with chest pain when breathing in and the medication she was put on has not helped so far. She said they did do xrays. She is scheduled to see Rosalina Hilton tomorrow for her follow up. Thanks [phone] (home) [phone] (cell) Patient last appointment: 04/29/2024 Thierry Calero Allergies As of Date: 05/06/2024 Noted Allergy Reaction LATEX 03/16/2021 2 - Rash PENICILLINS 03/16/2021 10 - Anaphylaxis TAPE (ADHESIVE TAPE-SILICONES) 06/15/2022 2 - Rash TORADOL (KETOROLAC) 03/16/2021 7 - Swelling Comments: Tongue swelling Date Reviewed: 05/02/2024 Reviewed by: Ramírez Jackson RN - Fully Assessed Reason for Visit: ED Follow-up [821] Prescriptions as of 05/07/2024 - DULoxetine (CYMBALTA) 30 mg capsule Take 1 capsule by mouth once daily. - cefdinir (OMNICEF) 300 mg capsule Take 1 capsule by mouth two times a day for 10 days. - predniSONE (DELTASONE) 20 mg tablet Take 1 tablet by mouth two times a day for 5 days. - tiZANidine (ZANAFLEX) 4 mg tablet Take 0.5-1 tablets by mouth three times a day as needed. - eletriptan (RELPAX) 20 mg tablet Take 1 tablet (20 mg) by mouth as needed for migraine headache (see administration instructions). may repeat in 2 hours if necessary - apixaban (ELIQUIS) 5 mg tab(s) Take 5 mg by mouth two times a day. - pantoprazole DR (PROTONIX) 40 mg tablet Take 1 tablet by mouth once daily. - topiramate (TOPAMAX) 100 mg tablet Take 1 tablet by mouth two times a day. - levothyroxine (SYNTHROID) 112 mcg tablet Take 1 tablet by mouth once daily. - ergocalciferol 50,000 unit capsule (VITAMIN D2, DRISDOL) Take 1 capsule by mouth one time a week. Use as directed. - dicyclomine (BENTYL) 20 mg tablet TAKE ONE TABLET BY MOUTH THREE TIMES A DAY NEEDED FOR ABDOMINAL PAIN - fluticasone (FLONASE) 50 mcg/actuation nasal spray USE 1 SPRAY IN EACH NOSTRIL ONCE DAILY - ibuprofen (MOTRIN) 600 mg tablet Take 1 tablet by mouth every 6 hours. Take with food. - polyethylene glycol 3350 (MIRALAX, GLYCOLAX) 17 gram/dose powder Take 17 g by mouth once daily. - ondansetron orally disintegrating (ZOFRAN ODT) 4 mg disintegrating tablet Take 1 tablet by mouth every 8 hours as needed for nausea/vomiting. Problem List As Of Date 05/06/2024 Noted Resolved H/O protein C deficiency [Z86.2] H/O protein S deficiency [Z86.2] Migraine [G43.909] Malignant melanoma (HCC) [C43.9] History of DVT (deep vein thrombosis) [Z86.718] 10/04/2021 Hypothyroidism [E03.9] 04/26/2021 Neck pain [M54.2] 06/14/2022 Right leg pain [M79.604] 06/14/2022 Left leg pain [M79.605] 06/14/2022 Myofascial pain syndrome [M79.18] 06/14/2022 UTI symptoms [R39.9] 08/02/2022 Abdominal pain [R10.9] 10/20/2022 Chronic pain syndrome [G89.4] 12/04/2023 Sacroiliitis (HCC) [M46.1] 12/04/2023 Encounter Status:Closed by THIERRY CALERO on 05/07/[address] [facility] CBC W Auto Differential pane l (Bld)on 05-02-2024 Basophils (Bld) [#/Vol] 10*3/uL Normal <0.11 [facility] Comment on above: Order Comment: Speci men Type: BLOOD SPECIMEN Ordering Facility: [facility] Address: [address] [place] [address] Performed By: #### 5 7021-8 #### [facility] CLIA [id number] [address] [place] [address] [place] Basophils/100 WBC (Bld) 0.1 % Normal [facility] Comment on above: Order Comment: Speci men Type: BLOOD SPECIMEN Ordering Facility: [facility] Address: [address] [place] [address] Performed By: #### 5 7021-8 #### [facility] CLIA [id number] [address] [place] [address] [place] Differential cell count method Nom (Bld) Auto Normal [facility] Comment on above: Order Comment: Speci men Type: BLOOD SPECIMEN Ordering Facility: [facility] Address: [address] [place] [address] Performed By: #### 5 7021-8 #### [facility] CLIA [id number] [address] [place] [address] [place] Eosinophils (Bld) [#/Vol] 0.05 10*3/uL Normal <0.46 [facility] Comment on above: Order Comment: Speci men Type: BLOOD SPECIMEN Ordering Facility: [facility] Address: [address] [place] [address] Performed By: #### 5 7021-8 #### [facility] CLIA [id number] [address] [place] [address] [place] Eosinophils/100 WBC (Bld) 0.5 % Normal [facility] Comment on above: Order Comment: Speci men Type: BLOOD SPECIMEN Ordering Facility: [facility] Address: [address] [place] [address] Performed By: #### 5 7021-8 #### [facility] CLIA [id number] [address] [place] [address] [place] Erythrocyte distribution width (RBC) [Ratio] 12.5 % Normal 11.5-15.0 [facility] Comment on above: Order Comment: Speci men Type: BLOOD SPECIMEN Ordering Facility: [facility] Address: [address] [place] [address] Performed By: #### 5 7021-8 #### [facility] CLIA [id number] [address] [place] [address] [place] Hematocrit (Bld) [Volume fraction] 43.3 % Normal 36.0-46.0 [facility] Comment on above: Order Comment: Speci men Type: BLOOD SPECIMEN Ordering Facility: [facility] Address: [address] [place] [address] Performed By: #### 5 7021-8 #### [facility] CLIA [id number] [address] [place] [address] [place] Hemoglobin (Bld) [Mass/Vol] 14.3 g/dL Normal 11.5-15.5 [facility] Comment on above: Order Comment: Speci men Type: BLOOD SPECIMEN Ordering Facility: [facility] Address: [address] [place] [address] Performed By: #### 5 7021-8 #### [facility] CLIA [id number] [address] [place] [address] [place] Immature granulocytes (Bld) [#/Vol] 0.04 10*3/uL Normal <0.10 [facility] Comment on above: Order Comment: Speci men Type: BLOOD SPECIMEN Ordering Facility: [facility] Address: [address] [place] [address] Performed By: #### 5 7021-8 #### [facility] CLIA [id number] [address] [place] [address] [place] Immature granulocytes/100 WBC (Bld) 0.4 % Normal [facility] Comment on above: Order Comment: Speci men Type: BLOOD SPECIMEN Ordering Facility: [facility] Address: [address] [place] [address] Performed By: #### 5 7021-8 #### [facility] CLIA [id number] [address] [place] [address] [place] Lymphocytes (Bld) [#/Vol] 1.38 10*3/uL Normal 1.00-4.00 [facility] Comment on above: Order Comment: Speci men Type: BLOOD SPECIMEN Ordering Facility: [facility] Address: [address] [place] [address] Performed By: #### 5 7021-8 #### [facility] CLIA [id number] [address] [place] [address] [place] Lymphocytes/100 WBC (Bld) 14.1 % Normal [facility] Comment on above: Order Comment: Speci men Type: BLOOD SPECIMEN Ordering Facility: [facility] Address: [address] [place] [address] Performed By: #### 5 7021-8 #### [facility] CLIA [id number] [address] [place] [address] OF [place] MCH (RBC) [Entitic mass] 30.0 pg Normal 26.0-34.0 [facility] Comment on above: Order Comment: Speci men Type: BLOOD SPECIMEN Ordering Facility: [facility] Address: [address] [place] [address] Performed By: #### 5 7021-8 #### [facility] CLIA [id number] [address] [place] [address] [place] MCHC (RBC) [Mass/Vol] 33.0 g/dL Normal 30.5-36.0 [facility] Comment on above: Order Comment: Speci men Type: BLOOD SPECIMEN Ordering Facility: [facility] Address: [address] [place] [address] Performed By: #### 5 7021-8 #### [facility] CLIA [id number] [address] [place] [address] [place] MCV (RBC) [Entitic vol] 91.0 fL Normal 80.0-100.0 [facility] Comment on above: Order Comment: Speci men Type: BLOOD SPECIMEN Ordering Facility: [facility] Address: [address] [place] [address] Performed By: #### 5 7021-8 #### [facility] CLIA [id number] [address] [place] [address] [place] Monocytes (Bld) [#/Vol] 0.81 10*3/uL Normal <0.87 [facility] Comment on above: Order Comment: Speci men Type: BLOOD SPECIMEN Ordering Facility: [facility] Address: [address] [place] [address] Performed By: #### 5 7021-8 #### [facility] CLIA [id number] [address] [place] [address] [place] Monocytes/100 WBC (Bld) 8.3 % Normal [facility] Comment on above: Order Comment: Speci men Type: BLOOD SPECIMEN Ordering Facility: [facility] Address: [address] [place] [address] Performed By: #### 5 7021-8 #### [facility] CLIA [id number] [address] [place] [address] [place] Neutrophils (Bld) [#/Vol] 7.48 10*3/uL Normal 1.45-7.50 [facility] Comment on above: Order Comment: Speci men Type: BLOOD SPECIMEN Ordering Facility: [facility] Address: [address] [place] [address] Performed By: #### 5 7021-8 #### [facility] CLIA [id number] [address] [place] [address] [place] Neutrophils/100 WBC (Bld) 76.6 % Normal [facility] Comment on above: Order Comment: Speci men Type: BLOOD SPECIMEN Ordering Facility: [facility] Address: [address] [place] [address] Performed By: #### 5 7021-8 #### [facility] CLIA [id number] [address] [place] [address] [place] Nucleated RBC (Bld) [#/Vol] 10*3/uL Normal <0.01 [facility] Comment on above: Order Comment: Speci men Type: BLOOD SPECIMEN Ordering Facility: [facility] Address: [address] [place] [address] Performed By: #### 5 7021-8 #### [facility] CLIA [id number] [address] [place] [address] [place] Nucleated RBC/100 WBC (Bld) [Ratio] 0.0 /[address] [facility] Comment on above: Order Comment: Speci men Type: BLOOD SPECIMEN Ordering Facility: [facility] Address: [address] [place] [address] Performed By: #### 5 7021-8 #### [facility] CLIA [id number] [address] [place] [address] [place] Platelet mean volume (Bld) [Entitic vol] 9.4 fL Normal 9.0-12.7 [facility] Comment on above: Order Comment: Speci men Type: BLOOD SPECIMEN Ordering Facility: [facility] Address: [address] [place] [address] Performed By: #### 5 7021-8 #### [facility] CLIA [id number] [address] [place] [address] [place] Platelets (Bld) [#/Vol] 329 10*3/uL Normal 150-400 [facility] Comment on above: Order Comment: Speci men Type: BLOOD SPECIMEN Ordering Facility: [facility] Address: [address] [place] [address] Performed By: #### 5 7021-8 #### [facility] CLIA [id number] [address] [place] [address] [place] RBC (Bld) [#/Vol] 4.76 10*6/uL Normal 3.90-5.20 [facility] Comment on above: Order Comment: Speci men Type: BLOOD SPECIMEN Ordering Facility: [facility] Address: [address] [place] [address] Performed By: #### 5 7021-8 #### [facility] CLIA [id number] [address] [place] [address] [place] WBC (Bld) [#/Vol] 9.77 10*3/uL Normal 3.70-11.00 [facility] Comment on above: Order Comment: Speci men Type: BLOOD SPECIMEN Ordering Facility: [facility] Address: [address] [place] [address] Performed By: #### 5 7021-8 #### [facility] CLIA [id number] [address] [place] [address] [place] [facility] [place] Comprehensive metabolic 2000 panelon 05-02-2024 Albumin [Mass/Vol] 4.6 g/dL Normal 3.9-4.9 [facility] Comment on above: Order Comment: Speci men Type: BLOOD SPECIMEN Ordering Facility: [facility] Address: [address] [place] [address] Performed By: #### 2 4323-8, [id number] #### [facility] CLIA [id number] [address] [place] [address] [place] ALP [Catalytic activity/Vol] 53 U/L Normal 34-123 [facility] Comment on above: Order Comment: Speci men Type: BLOOD SPECIMEN Ordering Facility: [facility] Address: [facility] [place] [address] Performed By: #### 2 4323-8, [id number] #### [facility] CLIA [id number] [address] [place] [address] [place] ALT [Catalytic activity/Vol] 8 U/L Normal 7-38 [facility] Comment on above: Order Comment: Speci men Type: BLOOD SPECIMEN Ordering Facility: [facility] Address: [address] [place], [place] [address] Performed By: #### 2 4323-8, [id number] #### [facility] CLIA [id number] [address] [place] [address] [place] Anion gap [Moles/Vol] 11 mmol/L Normal 8-15 [facility] Comment on above: Order Comment: Speci men Type: BLOOD SPECIMEN Ordering Facility: [facility] Address: [address] [place] [address] Performed By: #### 2 4323-8, [id number] #### [facility] CLIA [id number] [address] [place] [address] [place] AST [Catalytic activity/Vol] 11 U/L Low 13-35 [facility] Comment on above: Order Comment: Speci men Type: BLOOD SPECIMEN Ordering Facility: [facility] Address: [address] [place], [place] [address] Performed By: #### 2 4323-8, [id number] #### [facility] CLIA [id number] [address] [place] [address] [place] Bilirubin [Mass/Vol] 0.4 mg/dL Normal 0.2-1.3 [facility] Comment on above: Order Comment: Speci men Type: BLOOD SPECIMEN Ordering Facility: [facility] Address: [address] [place] [address] Performed By: #### 2 4323-8, [id number] #### [facility] CLIA [id number] [address] [place] [address] [place] Calcium [Mass/Vol] 9.6 mg/dL Normal 8.5-10.2 [facility] Comment on above: Order Comment: Speci men Type: BLOOD SPECIMEN Ordering Facility: [facility] Address: [address] [place] [address] Performed By: #### 2 4323-8, [id number] #### [facility] CLIA [id number] [address] [place] [address] [place] Chloride [Moles/Vol] 107 mmol/L Normal 98-107 [facility] Comment on above: Order Comment: Speci men Type: BLOOD SPECIMEN Ordering Facility: [facility] Address: [address] [place] [address] Performed By: #### 2 4323-8, [id number] #### [facility] CLIA [id number] [address] [place] [address] [place] CO2 [Moles/Vol] 22 mmol/L Normal 22-30 [facility] Comment on above: Order Comment: Speci men Type: BLOOD SPECIMEN Ordering Facility: [facility] Address: [address] [place] [address] Performed By: #### 2 4323-8, [id number] #### [facility] CLIA [id number] [address] [place] [address] [place] Creatinine [Mass/Vol] 0.82 mg/dL Normal 0.58-0.96 [facility] Comment on above: Order Comment: Speci men Type: BLOOD SPECIMEN Ordering Facility: [facility] Address: [address] [place] [address] Performed By: #### 2 4323-8, [id number] #### [facility] CLIA [id number] [address] [place] [address] [place] Creatinine and Glomerular filtration rate.predicted panel (S/P/Bld) 90 mL/min/1.73m??? Normal >=60 [facility] Comment on above: Order Comment: Speci men Type: BLOOD SPECIMEN Ordering Facility: [facility] Address: [address] [place] [address] Result Comment: Dea mated Glomerular Filtration Rate (eGFR) is calculated using the 2020 CKD-EPI creatinine equation. This equation utilizes serum creatinine, sex, and age as parameters. The creatinine assay has traceable calibration to isotope dilution-mass spectrometry. Refer to KDIGO guidelines for clinical interpretation. In patients with unstable renal function, e.g. those with acute kidney injury, the eGFR may not accurately reflect actual GFR. Performed By: #### 2 4323-8, [id number] #### [facility] CLIA [id number] [address] [place] [address] [place] Glucose [Mass/Vol] 108 mg/dL High 74-99 [facility] Comment on above: Order Comment: Alejandro mcmanus Type: BLOOD SPECIMEN Ordering Facility: [facility] Address: [address] [place] [address] Result Comment: The [place] [employer] (ADA) provides guidance for cutoff values for fasting glucose and random glucose. The ADA defines fasting as no caloric intake for at least 8 hours. Fasting plasma glucose results between 100 to 125 mg/dL indicate increased risk for diabetes (prediabetes). Fasting plasma glucose results greater than or equal to 126 mg/dL meet the criteria for diagnosis of diabetes. In the absence of unequivocal hyperglycemia, results should be confirmed by repeat testing. In a patient with classic symptoms of hyperglycemia or hyperglycemic crisis, random plasma glucose results greater than or equal to 200 mg/dL meet the criteria for diagnosis of diabetes. Reference: Standards of Medical Care in Diabetes 2016, [place] [employer]. Diabetes Care. 2016.39(Suppl 1). Performed By: #### 2 4323-8, [id number] #### [facility] CLIA [id number] [address] [place] [address] [place] Potassium [Moles/Vol] 3.3 mmol/L Low 3.7-5.1 [facility] Comment on above: Order Comment: Alejandro mcmanus Type: BLOOD SPECIMEN Ordering Facility: [facility] Address: [address] [place] [address] Performed By: #### 2 4323-8, [id number] #### [facility] CLIA [id number] [address] [place] [address] [place] Protein [Mass/Vol] 6.6 g/dL Normal 6.3-8.0 [facility] Comment on above: Order Comment: Lilai marietta Type: BLOOD SPECIMEN Ordering Facility: [facility] Address: [address] [place] [address] Performed By: #### 2 4323-8, [id number] #### [facility] CLIA [id number] [address] [place] [address] [place] Sodium [Moles/Vol] 140 mmol/L Normal 136-144 [facility] Comment on above: Order Comment: Speci men Type: BLOOD SPECIMEN Ordering Facility: [facility] Address: [address] [place] [address] Performed By: #### 2 4323-8, [id number] #### [facility] CLIA [id number] [address] [place] [address] [place] Urea nitrogen [Mass/Vol] 10 mg/dL Normal 7-21 [facility] Comment on above: Order Comment: Lilai men Type: BLOOD SPECIMEN Ordering Facility: [facility] Address: [address] [place] [address] Performed By: #### 2 4323-8, [id number] #### [facility] CLIA [id number] [address] [place] [address] [place] ECG COMPLETEon 05-02-2024 ECG COMPLETE Ventricular Rate : 5 5 BPM Atrial Rate : 55 BPM P-R Interval : 190 ms QRS Duration : 84 ms Q-T Interval : 426 ms QTC Calculation(Bazett) : 407 ms Calculated P [place] : 58 degrees Calculated R [place] : 67 degrees Calculated T [place] : 57 degrees Sinus bradycardia Possible Left atrial enlargement Borderline ECG No previous ECGs available Confirmed by ANNETTE HANSON MD ([id number]) on 05/02/2024 10:24:21 AM NAME : SUHA CALIX PID : [id number] : 1980 Gender : Female Race : ORD : [id number] Procedure Date : May 02 2024 07:32:15 Edit Date : May 02 2024 10:25:56 Diagnosis: Sinus bradycardia Possible Left atrial enlargement Borderline ECG No previous ECGs available Confirmed by ANNETTE HANSON MD ([id number]) on 05/02/2024 10:24:21 AM Test Reason : HCS Location : 3 : ED Overread By : ANNETTE HANSON MD Edited By : ANNETTE HANSON MD Referred By : , Acquired by : RONNY MEDELLIN [facility] ED NOTEon 05-02-2024 ED NOTE HNO ID: [id number] Author: RAMÍREZ JACKSON RN Service: ? Author Type: Registered Nurse Type: ED Notes Filed: 05/02/2024 07:24 Note Text: On Monday went to her PCP for sinus issues and chest pain. Had xray and diagnosed with possible pleurisy.Placed on steriods was feeling better, went to go to work weds and felt worse. SOA, Pain to left side around her chest.. Pain worse with deep breath. [facility] ED PROV NOTEon 05-02-2024 ED PROV NOTE HNO ID: [id number] Author: VEGA DOVE MD Service: ? Author Type: Physician Type: ED Provider Notes Filed: 05/02/2024 15:35 Note Text: ED Provider Note Patient Name: Suha Calix : 1980 SERVICE DATE: 05/02/24 History Patient presents with: Shortness of Breath 44 year old female presents complaint of left-sided chest pain worse with movement including bending at the waist, twisting, and with deep inspiration. She has not had any persistent coughing or any colored sputum production, no hemoptysis associated. She states her pain is sometimes worsened with ambulation. No history of any recent trauma or falls. No pain radiating to the neck/jaw nor to the left arm nor into the back. She has not had any syncope nor any near syncopal episodes, no palpitations, no leg swelling or leg pain. She does have a history of DVT in the past and also history of protein C and protein S deficiency for which she has an IVC filter. She has not had any prior coronary artery disease nor congenital heart defects. CAD risk factors: Positive family history of coronary disease(father at age 60 also brother with history of heart disease), non-smoker, no illicit drug use,? History of hypercholesterolemia, no history of diabetes, no history of hypertension. History provided by: Patient PAST MEDICAL HISTORY Diagnosis Date Anxiety and depression DVT (deep venous thrombosis) (HCC) GERD (gastroesophageal reflux disease) H/O protein C deficiency H/O protein S deficiency History of DVT (deep vein thrombosis) 10/04/2021 Hypothyroid Malignant melanoma (HCC) Melanoma (HCC) Migraines Other specified hypothyroidism 10/04/2021 PAST SURGICAL HISTORY Procedure Laterality Date SECTION SINGLE 1998 COLONOSCOPY SCREENING 01/16/2023 EGD W/O BRSH SPEC VARICIES INJ 01/16/2023 ESOPHAGOGASTRODUODENOSCOPY TRANSORAL DIAGNOSTIC 03/23/2013 EGD HAND SURGERY HX Left trigger finger release 3 rd finger HYSTEROSCOPY, DIAGNOSTIC (SEPARATE 10/18/2021 IR IVC FILTER PLACEMENT 2010 MALIGNANT MELANOMA - WIDE EXCISION IN ANY AREA AND MUST INCLUDE > 1CM MARGINS AND LAYERED CLOSURE TONSILLECTOMY AND ADENOIDECTOMY VAGINAL HYSTERECTOMY 03/08/2022 total FAMILY HISTORY Problem Relation Age of Onset Clotting Disorder Father Protein C and S deficiency No Known Problems Mother Clotting Disorder Paternal Grandfather Anesthesia Problems No Family History Social History Tobacco Use Smoking status: Former Packs/day: 1.00 Years: 22.00 Additional pack years: 0.00 Total pack years: 22.00 Types: Cigarettes Quit date: 03/23/2016 Years since quittin.1 Smokeless tobacco: Never Vaping Use Vaping Use: Never used Substance and Sexual Activity Alcohol use: Not Currently Drug use: Never Sexual activity: Not on file ALLERGIES Allergen Reactions Latex Rash Penicillins Anaphylaxis Tape [Adhesive Tape* Rash Toradol [Ketorolac] Swelling Tongue swelling Review of Systems Constitutional: Negative. HENT: Negative. Eyes: Negative. Respiratory: Positive for shortness of breath. Negative for cough, chest tightness and wheezing. Cardiovascular: Positive for chest pain. Gastrointestinal: Negative. Endocrine: Negative. Genitourinary: Negative. Musculoskeletal: Negative. Skin: Negative. Neurological: Negative. Psychiatric/Behavioral: Negative. All other systems reviewed and are negative. Physical Exam Vitals [05/02/24 0724] BP Pulse Temp Temp src Resp SpO2 Weight Height 116/79 70 36.4 ?C (97.6 ?F) Oral 18 100 % 55 kg (121 lb 4.1 oz) 1.651 m (5' 5) Physical Exam Vitals (Patient's initial respiratory rate was listed at 158 breaths/min and this is an error; patient's respiratory rate at the bedside by me was 15 breaths/min) and nursing note reviewed. Constitutional: General: She is in acute distress. Appearance: Normal appearance. She is well-developed. She is not ill-appearing, toxic-appearing or diaphoretic. HENT: Head: Normocephalic and atraumatic. Right Ear: External ear normal. Left Ear: External ear normal. Nose: Nose normal. Mouth/Throat: Mouth: Mucous membranes are moist. Eyes: Extraocular Movements: Extraocular movements intact. Pupils: Pupils are equal, round, and reactive to light. Cardiovascular: Rate and Rhythm: Normal rate and regular rhythm. Pulses: Normal pulses. Heart sounds: No murmur heard. No friction rub. No gallop. Pulmonary: Effort: Pulmonary effort is normal. No tachypnea, accessory muscle usage or respiratory distress. Breath sounds: Normal breath sounds. No stridor. No decreased breath sounds, wheezing, rhonchi or rales. Chest: Chest wall: Tenderness present. No deformity or crepitus. There is no dullness to percussion. Comments: Patient has chest wall tenderness on the left chest wall and left costal margin. No crepitus on palpation during auscultation. Abdominal: General: A (more content not included)... Normal [facility] Fibrin D-dimer FEU (PPP) [Ma ss/Vol]on 05-02-2024 Fibrin D-dimer DDU IA (Bld) [Mass/Vol] 230 ng/mL DDU Normal <=230 [facility] Comment on above: Order Comment: Alejandro mcmanus Type: BLOOD SPECIMEN Ordering Facility: [facility] Address: [address] [place] [address] Performed By: #### [id number] #### [facility] CLIA [id number] [address] [place] [address] [place] HIGH SENSITIVITY TROPONIN T (INITIAL)on 05-02-2024 Troponin T.cardiac High sensitivity method [Mass/Vol] 7 ng/L Normal <12 [facility] Comment on above: Order Comment: Alejandro mcmanus Type: BLOOD SPECIMEN Ordering Facility: [facility] Address: [address] [place] [address] Performed By: #### 2 [id number], [id number] #### [facility] CLIA [id number] [address] [place] [address] [place] HIGH SENSITIVITY TROPONIN T (SECOND)on 05-02-2024 Troponin T.cardiac High sensitivity method [Mass/Vol] 11 ng/L Normal <12 [facility] Comment on above: Order Comment: Speci men Type: BLOOD SPECIMENOrdering Facility: [facility] Address: [address] [place] [address] Performed By: #### L [id number] ####[facility] [id number] [address] [place] XR CHEST 1V FRONTAL PORTon 0 05-02-2024 XR CHEST 1V FRONTAL PORT * * *Final Report* * * DATE OF EXAM: May 02 2024 7:52AM [id number] - XR CHEST 1V FRONTAL PORT / PROCEDURE REASON: Shortness of breath * * * * Physician Interpretation * * * * EXAMINATION: CHEST RADIOGRAPH (PORTABLE SINGLE VIEW AP) Exam Date/Time: 05/02/2024 7:52 AM CLINICAL HISTORY: Shortness of breath, Shortness of breath, Chest pain MQ: XCPR_5 Comparison: 04/29/2024 RESULT: Lines, tubes, and devices: None. Lungs and pleura: No active infiltrates Cardiomediastinal silhouette: Stable cardiomediastinal silhouette. Other: . IMPRESSION: . No acute process. Squeegee Operator: PSCB Transcribe Date/Time: May 02 2024 8:00A Dictated by : KWABENA GONZALEZ MD This examination was interpreted and the report reviewed and electronically signed by: KWABENA GONZALEZ MD on May 02 2024 8:01AM EST [id number] Normal [facility] CNOVon 04-29-2024 CNOV Office Visit (FMUPCN ) SUHA CALIX ([id number]) 1980 F CHT Date Time Provider Department 04/29/24 10:00 AM [facility] During your visit today, we recorded the following information about you: Temperature Pulse Respiration Blood pressure 98.3 degrees 72/minute 18/minute 114/72 Weight 54.9 kg Gretta Izquierdo, DATA SCIENCE AND IOT MANAGER.PREPARED [employer]S SERVICE TEAM MEMBER 04/30/2024 11:32 AM Signed April 29, 2024 Subjective Chief Complaint: Sinus Problem (Patient sinuses have been bothering her, She has been dealing with this for a while. She stated he head is full and it hurts to breath. Patient has a ENT on 05/06. ) HPI: Suha Calix is a 44 year old female who presents today for complaints of increased sinus pressure, throbbing pain in face and teeth, drainage and stabbing pain along the left side of chest and in left axilla when taking a deep breath. Pt states she has felt short of breath at times. Pt denies injury to the area and states she has been coughing, not excessively. Pt reports she does have chronic sinus issues and has appt with ENT on 05/06/24. Last antibiotic was in January and treated with prednisone one month ago. Pt reports she does use Mucinex and Zyrted D and flonase on daily basis. PAST MEDICAL HISTORY Diagnosis Date Anxiety and depression DVT (deep venous thrombosis) (HCC) GERD (gastroesophageal reflux disease) H/O protein C deficiency H/O protein S deficiency History of DVT (deep vein thrombosis) 10/04/2021 Hypothyroid Malignant melanoma (HCC) Melanoma (HCC) Migraines Other specified hypothyroidism 10/04/2021 PAST SURGICAL HISTORY Procedure Laterality Date SECTION SINGLE 1998 COLONOSCOPY SCREENING 01/16/2023 EGD W/O BRSH SPEC VARICIES INJ 01/16/2023 ESOPHAGOGASTRODUODENOSCOPY TRANSORAL DIAGNOSTIC 03/23/2013 EGD HAND SURGERY HX Left trigger finger release 3 rd finger HYSTEROSCOPY, DIAGNOSTIC (SEPARATE 10/18/2021 IR IVC FILTER PLACEMENT 2010 MALIGNANT MELANOMA - WIDE EXCISION IN ANY AREA AND MUST INCLUDE > 1CM MARGINS AND LAYERED CLOSURE TONSILLECTOMY AND ADENOIDECTOMY VAGINAL HYSTERECTOMY 03/08/2022 total FAMILY HISTORY Problem Relation Age of Onset Clotting Disorder Father Protein C and S deficiency No Known Problems Mother Clotting Disorder Paternal Grandfather Anesthesia Problems No Family History Social History Tobacco Use Smoking status: Former Packs/day: 1.00 Years: 22.00 Additional pack years: 0.00 Total pack years: 22.00 Types: Cigarettes Quit date: 03/23/2016 Years since quittin.1 Smokeless tobacco: Never Vaping Use Vaping Use: Never used Substance Use Topics Alcohol use: Not Currently Drug use: Never ALLERGIES Allergen Reactions Latex Rash Penicillins Anaphylaxis Tape [Adhesive Tape* Rash Toradol [Ketorolac] Swelling Tongue swelling Immunization History Administered Date(s) Administered COVID-19 original vaccine, full dose, monovalent (MODERNA) 10/22/2020 11/20/2020 09/01/2021 COVID-19 vaccine, age 12+ yr, bivalent (MODERNA) 08/31/2022 influenza (IIV3) vaccine, age 3+ yr, trivalent (AFLURIA, FLULAVAL, FLUVIRIN, FLUZONE) 07/28/2020 08/06/2020 influenza (IIV4) vaccine, age 6 mo - 64 yr, quadrivalent (AFLURIA, FLULAVAL, FLUZONE) 09/22/2021 influenza (IIV4) vaccine, age 6 mo - 64 yr, quadrivalent, PF (AFLURIA, FLUARIX, FLULAVAL, FLUZONE) 09/22/2021 tuberculin skin test (TST-PPD), purified protein derivative, intradermal 04/23/2021 04/20/2022 Current Medications: apixaban (ELIQUIS) 5 mg tab(s) Take 5 mg by mouth two times a day. pantoprazole DR (PROTONIX) 40 mg tablet Take 1 tablet by mouth once daily. topiramate (TOPAMAX) 100 mg tablet Take 1 tablet by mouth two times a day. levothyroxine (SYNTHROID) 112 mcg tablet Take 1 tablet by mouth once daily. ergocalciferol 50,000 unit capsule (VITAMIN D2, DRISDOL) Take 1 capsule by mouth one time a week. Use as directed. tiZANidine (ZANAFLEX) 4 mg tablet Take 0.5-1 tablets by mouth three times daily as needed. dicyclomine (BENTYL) 20 mg tablet TAKE ONE TABLET BY MOUTH THREE TIMES A DAY NEEDED FOR ABDOMINAL PAIN eletriptan (RELPAX) 20 mg tablet Take 1 tablet by mouth as needed for migraine headache (see administration instructions). may repeat in 2 hours if necessary BIOTIN ORAL Take 1 capsule by mouth once daily. fluticasone (FLONASE) 50 mcg/actuation nasal spray USE 1 SPRAY IN EACH NOSTRIL ONCE DAILY ibuprofen (MOTRIN) 600 mg tablet Take 1 tablet by mouth every 6 hours. Take with food. polyethylene glycol 3350 (MIRALAX, GLYCOLAX) 17 gram/dose powder Take 17 g by mouth once daily. ondansetron orally disintegrating (ZOFRAN ODT) 4 mg disintegrating tablet Take 1 tablet by mouth every 8 hours as needed for nausea/vomiting. predniSONE (DELTASONE) 20 mg tablet Take 1 tablet by mouth two times a day. (Patient not taking: Reported on (more content not included)... [facility] 04-29-2024 GORDON Telephone (UNCCAW) SUHA CALIX ([id number]) 1980 F T Date Time Provider Department 04/29/24 GRETTA IZQUIERDO [facility] During your visit today, we recorded the following information about you: Gretta Izquierdo APRN.CNP 04/29/2024 4:17 PM Signed Please notify the patient chest xray showed no abnormal findings. Laurie Patricio MA 04/29/2024 4:39 PM Signed Patient notified and had no questions. Allergies As of Date: 04/29/2024 Noted Allergy Reaction LATEX 03/16/2021 2 - Rash PENICILLINS 03/16/2021 10 - Anaphylaxis TAPE (ADHESIVE TAPE-SILICONES) 06/15/2022 2 - Rash TORADOL (KETOROLAC) 03/16/2021 7 - Swelling Comments: Tongue swelling Date Reviewed: 04/29/2024 Reviewed by: Gretta Izquierdo APRN.CNP - Fully Assessed Reason for Visit: Results [95] Prescriptions as of 04/29/2024 - doxycycline hyclate (VIBRAMYCIN) 100 mg capsule Take 1 capsule (100 mg) by mouth two times a day for 10 days. - predniSONE (DELTASONE) 20 mg tablet Take 1 tablet by mouth two times a day for 5 days. - apixaban (ELIQUIS) 5 mg tab(s) Take 5 mg by mouth two times a day. - pantoprazole DR (PROTONIX) 40 mg tablet Take 1 tablet by mouth once daily. - topiramate (TOPAMAX) 100 mg tablet Take 1 tablet by mouth two times a day. - levothyroxine (SYNTHROID) 112 mcg tablet Take 1 tablet by mouth once daily. - ergocalciferol 50,000 unit capsule (VITAMIN D2, DRISDOL) Take 1 capsule by mouth one time a week. Use as directed. - tiZANidine (ZANAFLEX) 4 mg tablet Take 0.5-1 tablets by mouth three times daily as needed. - dicyclomine (BENTYL) 20 mg tablet TAKE ONE TABLET BY MOUTH THREE TIMES A DAY NEEDED FOR ABDOMINAL PAIN - eletriptan (RELPAX) 20 mg tablet Take 1 tablet by mouth as needed for migraine headache (see administration instructions). may repeat in 2 hours if necessary - BIOTIN ORAL Take 1 capsule by mouth once daily. - fluticasone (FLONASE) 50 mcg/actuation nasal spray USE 1 SPRAY IN EACH NOSTRIL ONCE DAILY - ibuprofen (MOTRIN) 600 mg tablet Take 1 tablet by mouth every 6 hours. Take with food. - polyethylene glycol 3350 (MIRALAX, GLYCOLAX) 17 gram/dose powder Take 17 g by mouth once daily. - ondansetron orally disintegrating (ZOFRAN ODT) 4 mg disintegrating tablet Take 1 tablet by mouth every 8 hours as needed for nausea/vomiting. Problem List As Of Date 04/29/2024 Noted Resolved H/O protein C deficiency [Z86.2] H/O protein S deficiency [Z86.2] Migraine [G43.909] Malignant melanoma (HCC) [C43.9] History of DVT (deep vein thrombosis) [Z86.718] 10/04/2021 Hypothyroidism [E03.9] 04/26/2021 Neck pain [M54.2] 06/14/2022 Right leg pain [M79.604] 06/14/2022 Left leg pain [M79.605] 06/14/2022 Myofascial pain syndrome [M79.18] 06/14/2022 UTI symptoms [R39.9] 08/02/2022 Abdominal pain [R10.9] 10/20/2022 Chronic pain syndrome [G89.4] 12/04/2023 Sacroiliitis (HCC) [M46.1] 12/04/2023 Encounter Status:Closed by GRETTA VASQUES on 04/29/24 [facility] XR CHEST 2V FRONTAL/LATon XR CHEST 2V FRONTAL/LAT * * *Final Report* * * DATE OF EXAM: Apr 29 2024 11:48AM [id number] - XR CHEST 2V FRONTAL/LAT / PROCEDURE REASON: Chest pain on respiration * * * * Physician Interpretation * * * * EXAMINATION: CHEST RADIOGRAPH (2 VIEW FRONTAL and LATERAL) CLINICAL HISTORY: Chest pain on respiration MQ: XC2_6 EXAM DATE/TIME: 04/29/2024 11:48 AM COMPARISON: No relevant prior studies available. RESULT: Lines, tubes, and devices: None. Lungs and pleura: No consolidation. No lung mass. No pleural effusion. No pneumothorax. Cardiomediastinal silhouette: Normal cardiomediastinal silhouette. Bones and soft tissues: Unremarkable. IMPRESSION: No acute radiographic abnormality. Squeegee Operator: MARK Transcribe Date/Time: Apr 29 2024 11:54A Dictated by : MINERVA MONTELONGO MD This examination was interpreted and the report reviewed and electronically signed by: MINERVA MONTELONGO MD on Apr 29 2024 11:55AM EST [id number] [facility] XR Chest PA and Lateralon IMPRESSION: No acute radiographic abnormality. Squeegee Operator: MARK Transcribe Date/Time: Apr 29 2024 11:54A Dictated by : MINERVA MONTELONGO MD This examination was interpreted and the report reviewed and electronically signed by: MINERVA MONTELONGO MD on Apr 29 2024 11:55AM [facility] * * *Final Report* * * DATE OF EXAM: Apr 29 2024 11:48AM UFX [id number] - XR CHEST 2V FRONTAL/LAT / PROCEDURE REASON: Chest pain on respiration * * * * Physician Interpretation * * * * EXAMINATION: CHEST RADIOGRAPH (2 VIEW FRONTAL & LATERAL) CLINICAL HISTORY: Chest pain on respiration MQ: XC2_6 EXAM DATE/TIME: 04/29/2024 11:48 AM COMPARISON: No relevant prior studies available. RESULT: Lines, tubes, and devices: None. Lungs and pleura: No consolidation. No lung mass. No pleural effusion. No pneumothorax. Cardiomediastinal silhouette: Normal cardiomediastinal silhouette. Bones and soft tissues: Unremarkable. [facility] Provider, Enriqueta Madison - 04/29/2024 * * *Final Report* * * DATE OF EXAM: Apr 29 2024 11:48AM UFX [id number] - XR CHEST 2V FRONTAL/LAT / PROCEDURE REASON: Chest pain on respiration * * * * Physician Interpretation * * * * EXAMINATION: CHEST RADIOGRAPH (2 VIEW FRONTAL & LATERAL) CLINICAL HISTORY: Chest pain on respiration MQ: XC2_6 EXAM DATE/TIME: 04/29/2024 11:48 AM COMPARISON: No relevant prior studies available. RESULT: Lines, tubes, and devices: None. Lungs and pleura: No consolidation. No lung mass. No pleural effusion. No pneumothorax. Cardiomediastinal silhouette: Normal cardiomediastinal silhouette. Bones and soft tissues: Unremarkable. IMPRESSION IMPRESSION: No acute radiographic abnormality. Squeegee Operator: PSCB Transcribe Date/Time: Apr 29 2024 11:54A Dictated by : MINERVA MONTELONGO MD This examination was interpreted and the report reviewed and electronically signed by: MINERVA MONTELONGO MD on Apr 29 2024 11:55AM EST [facility] Radiology Study observation (narrative) [facility] XR Chest PA and LateralOrder ed By: [facility] Provider on 04-29-2024 [facility] 04-03-2024 CNPN Telephone (FMUPCN) SUHA CALIX ([id number]) 1980 F CHT Date Time Provider Department 04/03/24 ROSALINA HILTON During your visit today, we recorded the following information about you: Libby Harrison MA 04/03/2024 10:51 AM Signed ----- Message from Rosalina Hilton APRN.[employer]PAR[employer] SERVICE TEAM MEMBER sent at 04/03/2024 8:25 AM EDT ----- TSH and iron studies normal results Libby Harrison MA 04/03/2024 10:52 AM Signed Mailbox is full unable to leave message. Signing normal encounter Allergies As of Date: 04/03/2024 Noted Allergy Reaction LATEX 03/16/2021 2 - Rash PENICILLINS 03/16/2021 10 - Anaphylaxis TAPE (ADHESIVE TAPE-SILICONES) 06/15/2022 2 - Rash TORADOL (KETOROLAC) 03/16/2021 7 - Swelling Comments: Tongue swelling Date Reviewed: 04/02/2024 Reviewed by: Sri Marquez - Fully Assessed Reason for Visit: Results [95] Prescriptions as of 04/03/2024 - apixaban (ELIQUIS) 5 mg tab(s) Take 5 mg by mouth two times a day. - predniSONE (DELTASONE) 20 mg tablet Take 1 tablet by mouth two times a day. - pantoprazole DR (PROTONIX) 40 mg tablet Take 1 tablet by mouth once daily. - topiramate (TOPAMAX) 100 mg tablet Take 1 tablet by mouth two times a day. - levothyroxine (SYNTHROID) 112 mcg tablet Take 1 tablet by mouth once daily. - ergocalciferol 50,000 unit capsule (VITAMIN D2, DRISDOL) Take 1 capsule by mouth one time a week. Use as directed. - tiZANidine (ZANAFLEX) 4 mg tablet Take 0.5-1 tablets by mouth three times daily as needed. - dicyclomine (BENTYL) 20 mg tablet TAKE ONE TABLET BY MOUTH THREE TIMES A DAY NEEDED FOR ABDOMINAL PAIN - eletriptan (RELPAX) 20 mg tablet Take 1 tablet by mouth as needed for migraine headache (see administration instructions). may repeat in 2 hours if necessary - BIOTIN ORAL Take 1 capsule by mouth once daily. - fluticasone (FLONASE) 50 mcg/actuation nasal spray USE 1 SPRAY IN EACH NOSTRIL ONCE DAILY - ibuprofen (MOTRIN) 600 mg tablet Take 1 tablet by mouth every 6 hours. Take with food. - polyethylene glycol 3350 (MIRALAX, GLYCOLAX) 17 gram/dose powder Take 17 g by mouth once daily. - ondansetron orally disintegrating (ZOFRAN ODT) 4 mg disintegrating tablet Take 1 tablet by mouth every 8 hours as needed for nausea/vomiting. Problem List As Of Date 04/03/2024 Noted Resolved H/O protein C deficiency [Z86.2] H/O protein S deficiency [Z86.2] Migraine [G43.909] Malignant melanoma (HCC) [C43.9] History of DVT (deep vein thrombosis) [Z86.718] 10/04/2021 Hypothyroidism [E03.9] 04/26/2021 Neck pain [M54.2] 06/14/2022 Right leg pain [M79.604] 06/14/2022 Left leg pain [M79.605] 06/14/2022 Myofascial pain syndrome [M79.18] 06/14/2022 UTI symptoms [R39.9] 08/02/2022 Abdominal pain [R10.9] 10/20/2022 Chronic pain syndrome [G89.4] 12/04/2023 Sacroiliitis (HCC) [M46.1] 12/04/2023 Encounter Status:Closed [facility] Office Visit (FMUPCN ) SUHA CALIX ([id number]) 1980 F T Date Time Provider Department 04/02/24 2:40 PM LEVI CARLTON FMUPCN During your visit today, we recorded the following information about you: Temperature Pulse Respiration Blood pressure 98.3 degrees 70/minute 16/minute 117/73 Weight Height 58.4 kg 1.651 m Levi Carlton PA-C 04/02/2024 3:42 PM Signed Suha Calix is a 44 year old female here today acutely because of having: Headache (Patient presents for headaches and sinus pressure. Patient states this has been going on since September off and on. Patient takes ibuprofen and mucinex and sudafed. She feels like she has fluid in her ears. ) Patient presents to the clinic today with complaints of sinus pain and pressure. Has chronic sinus issues, but has had more issues since September. States she has had increased sinus pressure, pain, ear pain, rhinorrhea. Was seen in January at walk in clinic for the same issue. Started on doxycycline, which helped for a few weeks but symptoms returned shortly after. No fevers, chills Review of Systems Constitutional: Negative for chills, fatigue and fever. HENT: Positive for rhinorrhea, sinus pressure, sinus pain and sore throat. Negative for congestion. Eyes: Negative. Respiratory: Negative. Cardiovascular: Negative. Gastrointestinal: Negative for diarrhea, nausea and vomiting. Endocrine: Negative. Genitourinary: Negative. Musculoskeletal: Negative. Skin: Negative. Allergic/Immunologic: Negative. Neurological: Positive for headaches. Negative for dizziness, light-headedness and numbness. Hematological: Negative. Psychiatric/Behavioral: Negative. BP 117/73 (BP Site: Left Arm, BP Position: Sitting, BP Cuff Size: Regular Adult) Pulse 70 Temp 36.8 ?C (98.3 ?F) (Oral) Resp 16 Ht 165.1 cm (5' 5) Wt 58.4 kg (128 lb 12.8 oz) LMP 03/08/2022 SpO2 99% BMI 21.43 kg/m? BMI 21.43 kg/(m2) ALLERGIES Allergen Reactions Latex Rash Penicillins Anaphylaxis Tape [Adhesive Tape* Rash Toradol [Ketorolac] Swelling Tongue swelling Physical Exam Constitutional: Appearance: Normal appearance. She is normal weight. HENT: Head: Normocephalic and atraumatic. Right Ear: External ear normal. Left Ear: External ear normal. Nose: Nose normal. Mouth/Throat: Mouth: Mucous membranes are moist. Pharynx: Oropharynx is clear. Eyes: Extraocular Movements: Extraocular movements intact. Conjunctiva/sclera: Conjunctivae normal. Pupils: Pupils are equal, round, and reactive to light. Cardiovascular: Rate and Rhythm: Normal rate and regular rhythm. Pulses: Normal pulses. Heart sounds: Normal heart sounds. Pulmonary: Effort: Pulmonary effort is normal. Breath sounds: Normal breath sounds. Abdominal: General: Abdomen is flat. Palpations: Abdomen is soft. Skin: General: Skin is warm and dry. Neurological: General: No focal deficit present. Mental Status: She is alert and oriented to person, place, and time. Mental status is at baseline. Psychiatric: Mood and Affect: Mood normal. Behavior: Behavior normal. Thought Content: Thought content normal. Judgment: Judgment normal. ASSESSMENT/PLAN: 1. Chronic rhinosinusitis - ICD9: 472.0, 473.9, ICD10: J32.9 (primary diagnosis) - Due to duration of sinus issues, patient may benefit from seeing ENT. Will call if symptoms not improving by the end of the week, may consider antibiotic at that time - CONSULT TO ENT 2. Encounter for behavioral health screening - ICD9: V82.89, ICD10: Z13.30 - BEHAVIORAL HEALTH SCREENING Behavioral Health Screening PHQ-9 Score: 14 (Moderate Depression) ANJU-7 Score: 14 (Moderate Anxiety) Recommendation: continuing current treatment plan 3. Eustachian tube dysfunction, bilateral - ICD9: 381.81, ICD10: H69.93 - PREDNISONE 20 MG TABLET 4. History of anemia - ICD9: V12.3, ICD10: Z86.2 - IRON AND TIBC - FERRITIN 5. Hypothyroidism, unspecified type - ICD9: 244.9, ICD10: E03.9 - Instructed patient on importance of taking on an empty stomach either first thing in the morning or at bedtime. - THYROID STIMULATING HORMONE Levi Carlton PA-C Follow Up: Return if symptoms worsen or fail to improve. Prescription instructions reviewed with patient as applicable. Patient advised if symptoms do not improve or if symptoms worsen sooner, to contact their primary care physician. Potential red flag symptoms discussed with the patient. Reviewed appropriate action plan to take if red flag symptoms occur. Patient agreeable to treatment plan. Voice recognition software utilized. Minor grammatical and/or spelling errors may exist. Portions of this note have been entered by ancillary staff. I have reviewed and when necessary edited, so that they are an adequate record of my encounter with this patient. Allergies As of Date: 04/02/2024 N (more content not included)... Normal [facility] FERRITINon 04-02-2024 Ferritin [Mass/Vol] 46.9 ng/mL 14.7 - 205.1 ng/mL [facility] Ferritin SerPl-mCncon 2023 Ferritin [Mass/Vol] 46.9 ng/mL Normal 14.7-205.1 [facility] Comment on above: Order Comment: Specdelicia mcmanus Type: BLOOD SPECIMENOrdering Facility: [facility] Address: [address] [place] [address] Performed By: #### 2 276-4, 94509-7, 3015-3 ####[facility] LABCLIA [id number] [place] [address] [place] Iron and Iron binding capaci ty panelon 04-02-2024 Interpretation and review of laboratory results Normal [facility] Iron [Mass/Vol] 68 ug/dL 41 - 186 ug/dL [facility] Iron binding capacity [Mass/Vol] 327 ug/dL 232 - 386 ug/dL [facility] Iron/TIBC [Molar ratio] 20.8 % 15.0 - 57.0 % [facility] Iron [Mass/Vol] 68 ug/dL Normal 41-186 [facility] Comment on above: Order Comment: Alejandro mcmanus Type: BLOOD SPECIMENOrdering Facility: [facility] Address: [address] [place] [address] Performed By: #### 2 276-4, 98663-1, 3015-3 ####[facility] LABCLIA [id number] [place] [address] [place] Iron binding capacity [Mass/Vol] 327 ug/dL Normal 232-386 [facility] Comment on above: Order Comment: Alejandro mcmanus Type: BLOOD SPECIMENOrdering Facility: [facility] Address: [facility] [place] [address] Performed By: #### 2 276-4, 63451-6, 6-3 ####[facility] LABCLIA [id number] [place] [address] [place] Iron/TIBC [Molar ratio] 20.8 % Normal 15.0-57.0 [facility] Comment on above: Order Comment: Alejandro mcmanus Type: BLOOD SPECIMENOrdering Facility: [facility] Address: [address] [place] [address] Performed By: #### 2 276-4, 49325-3, 3016-3 ####[facility] LABCLIA [id number] [place] [address] [place] No Panel Informationon 04-02 Interpretation and review of laboratory results Normal [facility] THYROID STIMULATING HORMONEo n 04-02-2024 TSH Qn 2.250 m[IU]/L [facility] Comment on above: If the patient is pr egnant, TSH reference range varies by gestational period: First Trimester (weeks 9-12): 0.180-2.990 mIU/L Second Trimester: 0.110-3.980 mIU/L Third Trimester: 0.480-4.710 mIU/L Tyler Zelaya et al. A Practical Approach for the Verifications and Determination of Site- and Trimester-Specific Reference Intervals for Thyroid Function tests in . Thyroid, 2019:29:3:412-420. Tod Quintero et al. 2017 Guidelines of the [place] [employer] for the Diagnosis and Management of Thyroid Disease during and the . Thyroid, 2017:27:3:315-389. TSH SerPl-aCncon 04-02-2024 TSH Qn 2.250 m[IU]/L Normal 0.270-4.[address] [facility] Comment on above: Order Comment: Alejandro mcmanus Type: BLOOD SPECIMENOrdering Facility: [facility] Address: [address] [address] Result Comment: If t he patient is , TSH reference range varies by gestational period: First Trimester (weeks 9-12): 0.180-2.990 mIU/L Second Trimester: 0.110-3.980 mIU/L Third Trimester: 0.480-4.710 mIU/L Tyler Zelaya et al. A Practical Approach for the Verifications and Determination of Site- and Trimester-Specific Reference Intervals for Thyroid Function tests in . Thyroid, 2019:29:3:412-420. Tod E, et al. 2017 Guidelines of the [place] [employer] for the Diagnosis and Management of Thyroid Disease during and the . Thyroid, 2017:27:3:315-389. Performed By: #### 2 276-4, 19282-0, 3016-3 ####[facility] LABCLIA [id number] [place] [address] [facility] CNOVon 02-06-2024 CNOV Office Visit ([facility] ) SUHA CALIX ([id number]) 1980 F CHT Date Time Provider Department 02/06/24 8:20 AM RAYMOND CARDENAS [facility] During your visit today, we recorded the following information about you: Temperature Pulse Respiration Blood pressure 98.8 degrees 99/minute 20/minute 94/67 Weight 55.3 kg Raymond Cardenas, DATA SCIENCE AND IOT MANAGER.PREPARED FOODS SERVICE TEAM MEMBER 02/06/2024 9:04 AM Signed - Use butterscotch candy to help decrease the cough. - Take Robitussin CF or Tussin CF for congestion and cough - Cool mist vaporizer at bedside to decrease the cough. - Get plenty of rest and fluids - Tylenol/ibuprofen for fever/pain. Raymond Cardenas, DATA SCIENCE AND IOT MANAGER.PREPARED [employer]ODS SERVICE TEAM MEMBER 02/06/2024 9:07 AM Signed Suha Ayalaman is a 43 year old female here today acutely because of having: Headache, Ear Pain, face pain, nasal congestion and Neck Pain Patient has symptoms of nasal congestion, face pain, ear pain, headache, ear pain and post nasal drainage. Symptoms on going for 2 weeks with headache starting 2 days ago. Patient has tried mucinex. Exposed to anyone with similar illness, no. Patient is not a smoker. Denies fever, SOB, chest pain, dizziness, nausea, vomiting, diarrhea. Headache Pertinent negatives include no fever, no palpitations, no shortness of breath, no nausea and no vomiting. Ear Pain Associated symptoms include congestion, fatigue, headaches and neck pain. Pertinent negatives include no abdominal pain, chest pain, chills, coughing, fever, nausea, rash, sore throat or vomiting. Neck Pain Associated symptoms include headaches. Pertinent negatives include no chest pain or fever. Review of Systems Constitutional: Positive for fatigue. Negative for chills and fever. HENT: Positive for congestion, ear pain, postnasal drip, rhinorrhea and sinus pain. Negative for sore throat. Respiratory: Negative for cough, chest tightness, shortness of breath and wheezing. Cardiovascular: Negative for chest pain, palpitations and leg swelling. Gastrointestinal: Negative for abdominal pain, diarrhea, nausea and vomiting. Musculoskeletal: Positive for neck pain. Skin: Negative for color change and rash. Neurological: Positive for headaches. Negative for dizziness. BP 94/67 (BP Site: Left Arm, BP Position: Sitting, BP Cuff Size: Regular Adult) Pulse 99 Temp 37.1 ?C (98.8 ?F) (Oral) Resp 20 Wt 55.3 kg (122 lb) LMP 03/08/2022 SpO2 100% BMI 20.30 kg/m? BMI 20.30 kg/(m2) ALLERGIES Allergen Reactions Latex Rash Penicillins Anaphylaxis Tape [Adhesive Tape* Rash Toradol [Ketorolac] Swelling Tongue swelling Physical Exam Vitals reviewed. Constitutional: Appearance: She is ill-appearing. HENT: Right Ear: External ear normal. Tympanic membrane is bulging. Left Ear: External ear normal. Tympanic membrane is bulging. Ears: Comments: Erythremic ear canals Nose: Congestion and rhinorrhea present. Right Sinus: Maxillary sinus tenderness and frontal sinus tenderness present. Left Sinus: Maxillary sinus tenderness and frontal sinus tenderness present. Mouth/Throat: Mouth: Mucous membranes are moist. Pharynx: No posterior oropharyngeal erythema. Comments: Yellow post nasal drainage Cardiovascular: Rate and Rhythm: Normal rate and regular rhythm. Heart sounds: Normal heart sounds. No murmur heard. Pulmonary: Effort: Pulmonary effort is normal. No respiratory distress. Breath sounds: Normal breath sounds. No wheezing. Skin: General: Skin is warm and dry. Neurological: Mental Status: She is alert and oriented to person, place, and time. ASSESSMENT/PLAN: 1. Bacterial sinusitis - ICD9: 473.9, 041.9, ICD10: J32.9, B96.89 - Will begin treatment with as per antibiotic as written, see orders - Supportive care with plenty of fluids, rest, and analgesia prn. - Use butterscotch candy to help decrease the cough. - Take Robitussin CF or Tussin CF for congestion and cough - Cool mist vaporizer at bedside to decrease the cough. - Get plenty of rest and fluids - Tylenol/ibuprofen for fever/pain. - DOXYCYCLINE HYCLATE 100 MG CAPSULE - PREDNISONE 20 MG TABLET Raymond Cardenas, PREPARED FOODS SERVICE TEAM MEMBER Follow Up: Return if symptoms worsen or fail to improve. Prescription instructions reviewed with patient as applicable. Patient advised if symptoms do not improve or if symptoms worsen sooner, to contact their primary care physician. Potential red flag symptoms discussed with the patient. Reviewed appropriate action plan to take if red flag symptoms occur. Patient agreeable to treatment plan. Voice recognition software utilized. Minor grammatical and/or spelling errors may exist. Portions of this note have been entered by ancillary staff. I have reviewed and when necessary edited, so that they are an adequate record of my encounter with this patient. Allergies As of Date: 02/06/2024 Noted Allergy Reaction LATEX 03/16/2021 2 - Rash PEN (more content not included)... Normal [facility] BLOOD TB SCREENon 09-20-2023 M. tuberculosis tuberculin stim IFN-g Ql (Bld) Negative Normal [facility] Comment on above: Order Comment: Alejandro mcmanus Type: BLOOD SPECIMEN Ordering Facility: [facility] Address: [address] [place] [address] Performed By: #### I NFTBP #### [facility] CLIA [id number] [address] [place] [address] [place] MITOGEN MINUS NIL >9.94 Normal >=0.50 [facility] Comment on above: Order Comment: Alejandro mcmanus Type: BLOOD SPECIMEN Ordering Facility: [facility] Address: [address] [place] [address] Performed By: #### I NFTBP #### [facility] CLIA [id number] [address] [place] [address] [place] TB GAMMA INTERPRETATION Infection with M. tuberculosis complex is unlikely. If latent tuberculosis infection is highly suspected, a negative result does not rule out the infection. Specimens from immunocompromised patients and those <5 years of age may show false negative results. In case of a contact investigation, please repeat 8-12 weeks after a known exposure. Normal [facility] Comment on above: Order Comment: Alejandro mcmanus Type: BLOOD SPECIMEN Ordering Facility: [facility] Address: [address] [place] [address] Performed By: #### I NFTBP #### [facility] CLIA [id number] [address] [place] [address] [place] TB NIL 0.06 IU/mL Normal <=8.00 [facility] Comment on above: Order Comment: Alejandro mcamnus Type: BLOOD SPECIMEN Ordering Facility: [facility] Address: [address] [place] [address] Performed By: #### I NFTBP #### [facility] CLIA [id number] [address] [place] [address] [place] TB1 AG MINUS NIL 0.03 IU/mL Normal <0.35 [facility] Comment on above: Order Comment: Alejandro mcmanus Type: BLOOD SPECIMEN Ordering Facility: [facility] Address: [address] [place] [address] Performed By: #### I NFTBP #### [facility] CLIA [id number] [address] [place] [address] [place] TB2 AG MINUS NIL 0.01 IU/mL Normal <0.35 [facility] Comment on above: Order Comment: Alejandro men Type: BLOOD SPECIMEN Ordering Facility: [facility] Address: [address] [place] [address] Performed By: #### I NFTBP #### [facility] CLIA [id number] [address] [place] [address] [place] HBV surface Ab Ql (S)on 08-24 HBV surface Ab Qn (S) <8.[address] [facility] Comment on above: Order Comment: Alejandro mcmanus Type: BLOOD SPECIMEN Ordering Facility: [facility] Address: [address] [place] [address] Result Comment: <8 m IU/mL: No serological evidence of immunity to Hepatitis B Virus. >/= 8 to <12 mIU/mL: No serological evidence of immunity to Hepatitis B Virus. >/= 12 mIU/mL: Consistent with serological evidence of immunity to Hepatitis B Virus. Performed By: #### 2 2322-2 #### [facility] CLIA [id number] [address] [place] [address] HBV surface Ab Ser Qlon 08-24 HBV surface Ab Ql (S) Negative Normal [facility] Comment on above: Order Comment: Alejandro mcmanus Type: BLOOD SPECIMEN Ordering Facility: [facility] Address: [address] [place] [address] Result Comment: No s erological evidence of immunity to Hepatitis B Virus. Performed By: #### 2 2322-2 #### [facility] CLIA [id number] [address] [place] [address] [place] Blood hemoglobin measurement (mass/volume)Ordered By: Tiara Sue on 07-06-2023 Hemoglobin (Bld) [Mass/Vol] 13.4 g/dL 12.0-15.0 [facility] Absolute lymphocyte countOrd ered By: Harshad Sauceda on 06-28-2023 Lymphocytes Auto (Unsp spec) [#/Vol] 1.89 10*3/uL 0.83-4.51 [facility] Basophil percentageOrdered B y: Harshad Sauceda on 06-28-2023 Basophils/100 WBC (Bld) 0.3 % 0-1 [facility] Chloride [Moles/Vol] 109 mmol/L 98-107 [facility] Eosinophils/100 WBC (Bld) 2.1 % 0-5 [facility] Glucose [Mass/Vol] 100 mg/dL 74-106 [facility] Comment on above: Fasting Glucose resu lt from 100 to 125 mg/dL suggests IMPAIRED HOMEOSTASIS per A.D.A. criteria. Neutrophils (Bld) [#/Vol] 4.3 10*3/uL 2.0-7.7 [facility] Neutrophils/100 WBC (Bld) 61.4 % 47-70 [facility] Potassium [Moles/Vol] 3.5 mmol/L 3.5-5.1 [facility] Sodium [Moles/Vol] 141 mmol/L 136-145 [facility] WBC (Bld) [#/Vol] 7.1 10*3/uL 4.4-11.0 [facility] Blood erythrocytes count (nu mber/volume)Ordered By: Harshad Sauceda on 06-28-2023 RBC (Bld) [#/Vol] 4.58 10*6/uL 4.2-5.4 [facility] Blood hemoglobin measurement (mass/volume)Ordered By: Harshad Sauceda on 06-28-2023 Hemoglobin (Bld) [Mass/Vol] 13.9 g/dL 12.0-15.0 [facility] Blood lymphocytes/100 leukoc ytesOrdered By: Harshad Sauceda on 06-28-2023 Lymphocytes/100 WBC (Bld) 26.8 % 19-41 [facility] Blood monocytes/100 leukocyt esOrdered By: Harshad Sauceda on 06-28-2023 Monocytes/100 WBC (Bld) 8.4 % 0-10 [facility] Blood platelet mean volumeOr dered By: Harshad Sauceda on 06-28-2023 Platelet mean volume (Bld) [Entitic vol] 9.4 fL 6.2-12.0 [facility] Determination of erythrocyte mean corpuscular volume (MCV)Ordered By: Harshad Sauceda on 06-28-2023 MCV (RBC) [Entitic vol] 92.4 fL 81-99 [facility] Hematocrit Auto (Bld) [Volum e fraction]Ordered By: Harshad Sauceda on 06-28-2023 Hematocrit (Bld) [Volume fraction] 42.3 % 37-47 [facility] Laboratory - Chemistry and C hemistry - challengeOrdered By: Harshad Sauceda on 06-28-2023 CO2 [Moles/Vol] 25.0 mmol/L 21.0-32.0 [facility] Urea nitrogen/Creatinine [Mass ratio] 18.0 mg/mg 10-20 [facility] Laboratory - Hematology and Cell countsOrdered By: Harshad Sauceda on 06-28-2023 Erythrocyte distribution width (RBC) [Entitic vol] 44.0 fL 35.1-43.9 [facility] Erythrocyte distribution width (RBC) [Ratio] 13.1 % 11.6-14.6 [facility] Immature granulocytes/100 WBC (Bld) 1.000 % 0.0-0.9 [facility] Comment on above: IG% - Immature Granu locytes (promyelocytes, myelocytes and metamyelocytes) > 1% indicates that a LEFT SHIFT is Present. MCH (RBC) [Entitic mass] 30.3 pg 27.0-32.0 [facility] Nucleated RBC/100 WBC (Bld) [Ratio] 0 % 0-5 [facility] MCHC Auto (RBC) [Mass/Vol]Or dered By: Harshad Sauceda on 06-28-2023 MCHC (RBC) [Mass/Vol] 32.9 g/dL 32-36 [facility] No Panel InformationOrdered By: Harshad Sauceda on 06-28-2023 Estimated Creatinine Clearance Calc 65.95 ml/min [facility] Estimated GFR (MDRD) Amer 83 mL/min >60 [facility] Comment on above: GFR Calc Estimated GFR (MDRD) Non-Af Amer 68 mL/min >60 [facility] Comment on above: Non- GFR Calc Platelets bldOrdered By: Marta Sauceda on 06-28-2023 Platelets (Bld) [#/Vol] 298 10*3/uL 150-450 [facility] Serum or plasma calcium gomez urement (mass/volume)Ordered By: Harshad Sauceda on 06-28-2023 Calcium [Mass/Vol] 8.8 mg/dL 8.5-10.1 [facility] Serum or plasma creatinine m easurement (mass/volume)Ordered By: Harshad Sauceda on 06-28-2023 Creatinine [Mass/Vol] 0.94 mg/dL 0.55-1.02 [facility] Comment on above: The validity of the calculated GFR & GFRAA in patients over 70 years has not been determined. Clinical correlation is essential. Serum or plasma urea nitroge n measurement (mass/volume)Ordered By: Harshad Sauceda on 06-28-2023 Urea nitrogen [Mass/Vol] 17 mg/dL 7-18 [facility] Thin prep Papanicolaou smear with manual screeningOrdered By: Harshad Sauceda on 06-28-2023 Thin prep Papanicolaou smear with manual screening 7 5-15 [facility] CNOVon 06-22-2023 CNOV Office Visit ([facility] ) SUHA CALIX ([id number]) 1980 [facility] Date Time Provider Department 06/22/23 1:00 PM RAYMOND CARDENAS [facility] During your visit today, we recorded the following information about you: Temperature Pulse Blood pressure Weight 98.8 degrees 86/minute 120/78 57.2 kg Height 1.651 m Ryamond Cardenas, DATA SCIENCE AND IOT MANAGER.[facility] 06/22/2023 1:56 PM Signed Suha Zelaya Fifi is a 43 year old female here today acutely because of having: URI Symptoms Patient has symptoms of nasal congestion, runny nose, face pain, cough, ear pain, headache, chest congestion, fatigue and post nasal drainage. Symptoms on going for 4 weeks. Patient has tried several OTC cold medication and 2 weeks ago was given bactrim for sinusitis, but did not notice any improvement. Exposed to anyone with similar illness, no. Patient is a smoker. Denies fever, SOB, chest pain, dizziness, nausea, vomiting, diarrhea. URI She complains of cough. There is no shortness of breath or wheezing. Associated symptoms include headaches, postnasal drip and rhinorrhea. Pertinent negatives include no chest pain, ear pain, fever or sore throat. Review of Systems Constitutional: Positive for fatigue. Negative for chills and fever. HENT: Positive for congestion, postnasal drip, rhinorrhea and sinus pain. Negative for ear pain and sore throat. Respiratory: Positive for cough. Negative for chest tightness, shortness of breath and wheezing. Cardiovascular: Negative for chest pain, palpitations and leg swelling. Gastrointestinal: Negative for abdominal pain, diarrhea, nausea and vomiting. Skin: Negative for color change and rash. Neurological: Positive for headaches. Negative for dizziness. BP 120/78 Pulse 86 Temp 37.1 ?C (98.8 ?F) (Oral) Ht 165.1 cm (5' 5) Wt 57.2 kg (126 lb) LMP 03/08/2022 SpO2 96% BMI 20.97 kg/m? BMI 20.97 kg/(m2) ALLERGIES Allergen Reactions Latex Rash Penicillins Anaphylaxis Tape [Adhesive Tape* Rash Toradol [Ketorolac] Swelling Tongue swelling Physical Exam Constitutional: Appearance: Normal appearance. HENT: Right Ear: External ear normal. Tympanic membrane is bulging. Left Ear: External ear normal. Tympanic membrane is bulging. Ears: Comments: Erythremic ear canals Nose: Congestion and rhinorrhea present. Right Sinus: Maxillary sinus tenderness and frontal sinus tenderness present. Left Sinus: Maxillary sinus tenderness and frontal sinus tenderness present. Mouth/Throat: Mouth: Mucous membranes are moist. Pharynx: No posterior oropharyngeal erythema. Comments: Yellow post nasal drainage with white coating on the tongue. No pain with palpation Cardiovascular: Rate and Rhythm: Normal rate and regular rhythm. Heart sounds: Normal heart sounds. No murmur heard. Pulmonary: Effort: Pulmonary effort is normal. No respiratory distress. Breath sounds: Normal breath sounds. No wheezing. Skin: General: Skin is warm and dry. Neurological: Mental Status: She is alert and oriented to person, place, and time. ASSESSMENT/PLAN: 1. Bacterial sinusitis - ICD9: 473.9, 041.9, ICD10: J32.9, B96.89 - Will begin treatment with as per antibiotic as written, see orders - Supportive care with plenty of fluids, rest, and analgesia prn. - DOXYCYCLINE HYCLATE 100 MG CAPSULE Raymond Cardenas PREPARED FOODS SERVICE TEAM MEMBER Follow Up: Return if symptoms worsen or fail to improve. Prescription instructions reviewed with patient as applicable. Patient advised if symptoms do not improve or if symptoms worsen sooner, to contact their primary care physician. Potential red flag symptoms discussed with the patient. Reviewed appropriate action plan to take if red flag symptoms occur. Patient agreeable to treatment plan. Voice recognition software utilized. Minor grammatical and/or spelling errors may exist. Portions of this note have been entered by ancillary staff. I have reviewed and when necessary edited, so that they are an adequate record of my encounter with this patient. Allergies As of Date: 06/22/2023 Noted Allergy Reaction LATEX 03/16/2021 2 - Rash PENICILLINS 03/16/2021 10 - Anaphylaxis TAPE (ADHESIVE TAPE-SILICONES) 06/15/2022 2 - Rash TORADOL (KETOROLAC) 03/16/2021 7 - Swelling Comments: Tongue swelling Date Reviewed: 06/22/2023 Reviewed by: Meseret Flores MA - Fully Assessed Reason for Visit: URI [115] Cmt: Congestion, drainage, pressure Primary Visit Diagnosis:Bacterial sinusitis [J32.9, B96.89] Order(s):doxycycline hyclate (VIBRAMYCIN) 100 mg capsuleTake 1 capsule by mouth twice daily for 10 days.Disp: 20 capsuleRfl: 0 Prescriptions as of 06/22/2023 - ELIQUIS 5 mg tab(s) Take 5 mg by mouth twice daily. - doxycycline hyclate (VIBRAMYCIN) 100 mg capsule Take 1 capsule by mouth twice daily for 10 days. - ergocalciferol 50,000 unit capsule (VITAMIN D2, DRISDOL) Take 1 capsule by mouth (more content not included)... Normal [facility] 05-21-2023 [facility] Telephone ([facility]) SUHA CALIX ([id number]) 1980 F T Date Time Provider Department 05/21/23 ROSALINA HILTON [facility] During your visit today, we recorded the following information about you: Rosalina Hilton APRN.[facility] 05/21/2023 7:38 AM Signed Please advise labs all look good except Vit D low at 20.0 (30-100) Anemia numbers normal Start Vit D weekly, sent to pharmacy Re-check 8 weeks This is not likely causing her fatigue If persistent will need follow up with her PCP Libby Harrison MA 05/22/2023 11:29 AM Signed Patient was informed and voiced understanding. Lab appt scheduled Allergies As of Date: 05/21/2023 Noted Allergy Reaction LATEX 03/16/2021 2 - Rash PENICILLINS 03/16/2021 10 - Anaphylaxis TAPE (ADHESIVE TAPE-SILICONES) 06/15/2022 2 - Rash TORADOL (KETOROLAC) 03/16/2021 7 - Swelling Comments: Tongue swelling Date Reviewed: 05/19/2023 Reviewed by: Liz Odom MA - Fully Assessed Reason for Visit: Results [95] Primary Visit Diagnosis:Vitamin D deficiency [E55.9] Order(s):ergocalciferol 50,000 unit capsule (VITAMIN D2, DRISDOL)Take 1 capsule by mouth one time a week. Use as directed.Disp: 12 capsuleRfl: 1 VITAMIN D 25 HYDROXY [SQVITD] Order #: [id number] FUTURE Prescriptions as of 05/22/2023 - ergocalciferol 50,000 unit capsule (VITAMIN D2, DRISDOL) Take 1 capsule by mouth one time a week. Use as directed. - predniSONE (DELTASONE) 20 mg tablet Take 1 tablet by mouth twice daily for 5 days. - sulfamethoxazole-trimethopr im (BACTRIM DS) 800-160 mg per tablet Take 1 tablet by mouth twice daily for 7 days. - tiZANidine (ZANAFLEX) 4 mg tablet Take 0.5-1 tablets by mouth three times daily as needed. - cream base no.103, bulk, crea Apply to affected area as directed. Apply 1-2 grams every 6-8 hours as needed for pain - pantoprazole DR (PROTONIX) 40 mg tablet Take 1 tablet by mouth once daily. - topiramate (TOPAMAX) 100 mg tablet Take 1 tablet by mouth twice daily. - dicyclomine (BENTYL) 20 mg tablet TAKE ONE TABLET BY MOUTH THREE TIMES A DAY NEEDED FOR ABDOMINAL PAIN - eletriptan (RELPAX) 20 mg tablet Take 1 tablet by mouth as needed for migraine headache (see administration instructions). may repeat in 2 hours if necessary - apixaban (ELIQUIS) 5 mg tab(s) Take 1 tablet by mouth twice daily. - levothyroxine (SYNTHROID) 112 mcg tablet Take 1 tablet by mouth once daily. - cyanocobalamin 1,000 mcg/mL INJECT 1ML (1000MCG) IM ONCE A WEEK FOR 4 WEEKS THE INJECT 1ML, IM ONCE A MONTH FOR 5 MONTHS - BIOTIN ORAL Take 1 capsule by mouth once daily. - fluticasone (FLONASE) 50 mcg/actuation nasal spray USE 1 SPRAY IN EACH NOSTRIL ONCE DAILY - acetaminophen (TYLENOL EXTRA STRENGTH) 500 mg tablet Take 2 tablets by mouth every 6 hours. - ibuprofen (MOTRIN) 600 mg tablet Take 1 tablet by mouth every 6 hours. Take with food. - polyethylene glycol 3350 (MIRALAX, GLYCOLAX) 17 gram/dose powder Take 17 g by mouth once daily. - ondansetron orally disintegrating (ZOFRAN ODT) 4 mg disintegrating tablet Take 1 tablet by mouth every 8 hours as needed for nausea/vomiting. Problem List As Of Date 05/21/2023 Noted Resolved H/O protein C deficiency [Z86.2] H/O protein S deficiency [Z86.2] Migraines [G43.909] Malignant melanoma (HCC) [C43.9] History of DVT (deep vein thrombosis) [Z86.718] 10/04/2021 Hypothyroidism [E03.9] 04/26/2021 Neck pain [M54.2] 06/14/2022 Right leg pain [M79.604] 06/14/2022 Left leg pain [M79.605] 06/14/2022 Myofascial pain syndrome [M79.18] 06/14/2022 UTI symptoms [R39.9] 08/02/2022 Abdominal pain [R10.9] 10/20/2022 Prescriptions ordered this encounter Disp Refills Start End ERGOCALCIFEROL (VITAMIN D2) 1,250 MC* 12 c* 1 05/21/2023 11/05/2023 Route: ORAL Sig: Take 1 capsule by mouth one time a week. Use as directed. Encounter Status:Closed by ROSALINA HILTON on 05/21/23 Normal [facility] 25-hydroxyvitamin D3 [Mass/V ol]on 05-19-2023 VITAMIN D 20.0 ng/mL Low 30 - 100 ng/mL [facility] CBCon 05-19-2023 BASO# 0.02 x10(3) Normal 0.00-0.10 [facility] Comment on above: Performed By: #### L 801.4500 #### [place] [address] Basophils/100 WBC (Bld) 0.4 % Normal 0.0-1.0 [facility] Comment on above: Performed By: #### L 801.4500 #### [place] [address] EOS# 0.17 x10(3) Normal 0.00-0.54 [facility] Comment on above: Performed By: #### L 801.4500 #### [place] [address] Eosinophils/100 WBC (Bld) 3.1 % Normal 0.5-4.9 [facility] Comment on above: Performed By: #### L [id number] #### [place] [address] Erythrocyte distribution width (RBC) [Ratio] 13.0 % Normal 12.5-15.7 [facility] Comment on above: Performed By: #### L [id number] #### [place] [address] Hematocrit (Bld) [Volume fraction] 43.7 % Normal 36.0-48.0 [facility] Comment on above: Performed By: #### L 801.4500 #### [place] [address] Hemoglobin (Bld) [Mass/Vol] 14.0 g/dL Normal 12.0-16.0 [facility] Comment on above: Performed By: #### L 801.4500 #### [place] [address] IMM GRAN# 0.02 x10(3) High 0-0 [facility] Comment on above: Performed By: #### L 801.4500 #### [place] [address] IMM GRAN% 0.4 % Normal [facility] Comment on above: Performed By: #### L 801.4500 #### [place] [address] LYMPH# 1.47 x10(3) Normal 1.00-3.50 [facility] Comment on above: Performed By: #### L 801.4500 #### [place] [address] Lymphocytes/100 WBC (Bld) 26.8 % Normal 16.0-48.0 [facility] Comment on above: Performed By: #### L 801.4500 #### [place] [address] MCH (RBC) [Entitic mass] 30.4 pg Normal 28.5-32.9 [facility] Comment on above: Performed By: #### L [id number] #### [place] [address] MCHC (RBC) [Mass/Vol] 32.0 g/dL Low 33.0-36.0 [facility] Comment on above: Performed By: #### L [id number] #### [place] [address] MCV (RBC) [Entitic vol] 95.0 fL Normal 80.0-99.0 [facility] Comment on above: Performed By: #### L 801.4500 #### [place] [address] MONO# 0.41 x10(3) Normal 0.30-0.80 [facility] Comment on above: Performed By: #### L 801.4500 #### [place] [address] Monocytes/100 WBC (Bld) 7.5 % Normal 4.3-11.2 [facility] Comment on above: Performed By: #### L 801.4500 #### [place] [address] NEUT# 3.39 x10(3) Normal 1.40-6.50 [facility] Comment on above: Performed By: #### L 801.4500 #### [place] [address] Neutrophils/100 WBC (Bld) 61.8 % Normal 45.0-73.0 [facility] Comment on above: Performed By: #### L 801.4500 #### [place] [address] Platelet mean volume (Bld) [Entitic vol] 9.5 fL Normal 7.5-9.5 [facility] Comment on above: Performed By: #### L 801.4500 #### [place] [address] PLT 286 X10(3) Normal 150-450 [facility] Comment on above: Performed By: #### L 801.4500 #### [place] [address] RBC 4.60 x10(6) Normal 3.30-5.00 [facility] Comment on above: Performed By: #### L 801.4500 #### [place] [address] WBC 5.5 x10(3) Normal 4.5-10.0 [facility] Comment on above: Performed By: #### L 801.4500 #### [place] [address] CBC W Auto Differential pane l (Bld)on 05-19-2023 BASO ABS 0.02 x10(3) 0.00 - 0.10 x10(3) [facility] Basophils/100 WBC (Bld) 0.4 % 0.0 - 1.0 % [facility] EOS ABS 0.17 x10(3) 0.00 - 0.54 x10(3) [facility] Eosinophils/100 WBC (Bld) 3.1 % 0.5 - 4.9 % [facility] Erythrocyte distribution width (RBC) [Ratio] 13.0 % 12.5 - 15.7 % [facility] Hematocrit (Bld) [Volume fraction] 43.7 % 36.0 - 48.0 % [facility] Hemoglobin (Bld) [Mass/Vol] 14.0 g/dL 12.0 - 16.0 g/dL [facility] Immature Gran % 0.4 % [facility] Immature Gran Abs 0.02 x10(3) High 0 - 0 x10(3) [facility] LYMPH ABS 1.47 x10(3) 1.00 - 3.50 x10(3) [facility] Lymphocytes/100 WBC (Bld) 26.8 % 16.0 - 48.0 % [facility] MCH (RBC) [Entitic mass] 30.4 pg 28.5 - 32.9 pg [facility] MCHC (RBC) [Mass/Vol] 32.0 g/dL Low 33.0 - 36.0 g/dL [facility] MCV (RBC) [Entitic vol] 95.0 fL 80.0 - 99.0 fl [facility] MONO ABS 0.41 x10(3) 0.30 - 0.80 x10(3) [facility] Monocytes/100 WBC (Bld) 7.5 % 4.3 - 11.2 % [facility] Neutrophil Ab 3.39 x10(3) 1.40 - 6.50 x10(3) [facility] Neutrophils/100 WBC (Bld) 61.8 % 45.0 - 73.0 % [facility] Platelet mean volume (Bld) [Entitic vol] 9.5 fL 7.5 - 9.5 fl [facility] Platelets (Bld) [#/Vol] 286 X10(3) 150 - 450 X10(3) [facility] RBC (Bld) [#/Vol] 4.60 x10(6) 3.30 - 5.00 x10(6) [facility] WBC (Bld) [#/Vol] 5.5 x10(3) 4.5 - 10.0 x10(3) [facility] CNOVon 05-19-2023 CNOV Office Visit ([facility] ) SUHA CALIX ([id number]) 1980 [facility] Date Time Provider Department 05/19/23 1:40 PM ROSALINA HILTON [facility] During your visit today, we recorded the following information about you: Pulse Blood pressure Weight Height 88/minute 94/65 58.1 kg 1.651 m Rosalina Hilton, REDD[facility] 05/19/2023 2:22 PM Signed Suha Zelaya Fifi is a 43 year old female here today for a check up on her multiple s/s Concern(s) today include: Post covid fatigue Her medications were reviewed today and her list is now up to date. She is compliant on taking her medications :Yes She She is tolerating her medication(s) without side effects: Yes Post Covid fatigue: Covid positive home test 04/07/2023 Symptoms were fatigue, O2 sat 89%, cough, nasal drainage, diarrhea, fever, chills, sore throat, ear pain, myalgia After 3 weeks s/s resolved except for fatigue, x3 migraines weekly (more frequent) Hx anemia, has seen Hematology ([facility] Chronic sinus issues No CP or SOB, cough ALLERGIES Allergen Reactions Latex Rash Penicillins Anaphylaxis Tape [Adhesive Tape* Rash Toradol [Ketorolac] Swelling Tongue swelling PAST MEDICAL HISTORY Diagnosis Date Anxiety and depression DVT (deep venous thrombosis) (HCC) GERD (gastroesophageal reflux disease) H/O protein C deficiency H/O protein S deficiency History of DVT (deep vein thrombosis) 10/04/2021 Hypothyroid Malignant melanoma (HCC) Melanoma (HCC) Migraines Other specified hypothyroidism 10/04/2021 PAST SURGICAL HISTORY Procedure Laterality Date SECTION SINGLE 1997 COLONOSCOPY SCREENING 01/16/2023 EGD W/O BRSH SPEC VARICIES INJ 01/16/2023 ESOPHAGOGASTRODUODENOSCOPY TRANSORAL DIAGNOSTIC 03/23/2013 EGD HAND SURGERY HX Left trigger finger release 3 rd finger HYSTEROSCOPY, DIAGNOSTIC (SEPARATE 10/18/2021 IR IVC FILTER PLACEMENT 2010 MALIGNANT MELANOMA - WIDE EXCISION IN ANY AREA AND MUST INCLUDE > 1CM MARGINS AND LAYERED CLOSURE TONSILLECTOMY AND ADENOIDECTOMY VAGINAL HYSTERECTOMY 03/08/2022 total FAMILY HISTORY Problem Relation Age of Onset Clotting Disorder Father Protein C and S deficiency No Known Problems Mother Clotting Disorder Paternal Grandfather Anesthesia Problems No Family History Social History Tobacco Use Smoking status: Former Packs/day: 1.00 Years: 22.00 Total pack years: 22.00 Types: Cigarettes Quit date: 03/23/2016 Years since quittin.1 Smokeless tobacco: Never Vaping Use Vaping Use: Never used Substance Use Topics Alcohol use: Not Currently Drug use: Never Current Outpatient Medications Medication Sig Dispense Refill tiZANidine (ZANAFLEX) 4 mg tablet Take 0.5-1 tablets by mouth three times daily as needed. [address] (PROTONIX) 40 mg tablet Take 1 tablet by mouth once daily. 90 tablet 1 topiramate (TOPAMAX) 100 mg tablet Take 1 tablet by mouth twice daily. 180 tablet 1 dicyclomine (BENTYL) 20 mg tablet TAKE ONE TABLET BY MOUTH THREE TIMES A DAY NEEDED FOR ABDOMINAL PAIN 270 tablet 1 eletriptan (RELPAX) 20 mg tablet Take 1 tablet by mouth as needed for migraine headache (see administration instructions). may repeat in 2 hours if necessary 10 tablet 5 apixaban (ELIQUIS) 5 mg tab(s) Take 1 tablet by mouth twice daily. 180 tablet 1 levothyroxine (SYNTHROID) 112 mcg tablet Take 1 tablet by mouth once daily. 90 tablet 3 BIOTIN ORAL Take 1 capsule by mouth once daily. fluticasone (FLONASE) 50 mcg/actuation nasal spray USE 1 SPRAY IN EACH NOSTRIL ONCE DAILY 16 mL 1 ibuprofen (MOTRIN) 600 mg tablet Take 1 tablet by mouth every 6 hours. Take with food. 60 tablet 0 polyethylene glycol 3350 (MIRALAX, GLYCOLAX) 17 gram/dose powder Take 17 g by mouth once daily. 510 g 4 ondansetron orally disintegrating (ZOFRAN ODT) 4 mg disintegrating tablet Take 1 tablet by mouth every 8 hours as needed for nausea/vomiting. 30 tablet 5 sulfamethoxazole-trimethopr im (BACTRIM DS) 800-160 mg per tablet Take 1 tablet by mouth twice daily for 7 days. 14 tablet 0 predniSONE (DELTASONE) 20 mg tablet Take 1 tablet by mouth twice daily for 5 days. 10 tablet 0 diazePAM (VALIUM) 10 mg tablet Take 1 tablet by mouth as directed for 1 day. One the night and 2 hours before the procedure. (Patient not taking: Reported on 05/19/2023) 2 tablet 0 cream base no.103, bulk, crea Apply to affected area as directed. Apply 1-2 grams every 6-8 hours as needed for pain (Patient not taking: Reported on 05/19/2023) 180 g 11 cyanocobalamin 1,000 mcg/mL INJECT 1ML (1000MCG) IM ONCE A WEEK FOR 4 WEEKS THE INJECT 1ML, IM ONCE A MONTH FOR 5 MONTHS (Patient not taking: Reported on 05/19/2023) 6 mL 1 acetaminophen (TYLENOL EXTRA STRENGTH) 500 mg tablet Take 2 tablets by mouth every 6 hours. (Patient not taking: Reported on 05/19/2023) 60 tablet 0 No (more content not included)... Normal [facility] FERRITINon 05-19-2023 Ferritin [Mass/Vol] 102.7 ng/mL Normal 13-150 [facility] Comment on above: Performed By: #### L 304.0210 #### ML - LABORATORY [address] [place] [address] FERRITIN BLDon 05-19-2023 Ferritin [Mass/Vol] 102.7 ng/mL 13 - 150 ng/mL [facility] IRON & TIBCon 05-19-2023 % FE. SAT. 25 % Normal 10-32 [facility] Comment on above: Performed By: #### L 100.0400 #### ML - LABORATORY [address] [place] [address] Iron [Mass/Vol] 89 ug/dL Normal 37-145 [facility] Comment on above: Performed By: #### L 100.0400 #### ML - LABORATORY [address] [place] [address] TIBC 351 mg/dL Normal 269-535 [facility] Comment on above: Performed By: #### L 100.0400 #### ML - LABORATORY [address] [place] [address] Transferrin [Mass/Vol] 251 mg/dL Normal 200-360 [facility] Comment on above: Performed By: #### L 100.0400 #### ML - LABORATORY [address] [place] [address] Iron and Iron binding capaci ty panelon 05-19-2023 % Saturation (TIBC) 25 % 10 - 32 % [facility] Iron [Mass/Vol] 89 ug/dL 37 - 145 ug/dL [facility] TIBC 351 mg/dL 269 - 535 mg/dL [facility] Transferrin [Mass/Vol] 251 mg/dL 200 - 360 mg/dL [facility] TSHon 05-19-2023 TSH 3.40 uIU/mL Normal 0.270-4.20 0 [facility] Comment on above: Performed By: #### L 304.0210 #### ML - LABORATORY [address] [place] [address] TSH BLDon 05-19-2023 TSH Qn 3.40 uIU/mL 0.270 - 4.200 uIU/mL [facility] VIT. B12on 05-19-2023 Cobalamin (Vitamin B12) [Mass/Vol] 457.0 pg/mL Normal 232-1245 [facility] Comment on above: Performed By: #### L 304.0210 #### ML - [facility] [address] [place] [address] VITAMIN B12 BLOODon 05-19-20 Cobalamin (Vitamin B12) [Mass/Vol] 457.0 pg/mL 232 - 1,245 pg/mL [facility] VITAMIN Don 05-19-2023 VITAMIN D 20.0 ng/mL Low 30-100 [facility] Comment on above: Performed By: #### L 801.4500 #### [place] [address] CNOVon 02-06-2023 CNOV Office Visit ([facility] ) SUHA CALIX ([id number]) 1980 [facility] Date Time Provider Department 02/06/23 1:00 PM FAB VINCENT During your visit today, we recorded the following information about you: Temperature Pulse Blood pressure 98.8 degrees 83/minute 110/82 Fab Vincent PA-C 02/12/2023 10:22 PM Signed FOLLOW UP VISIT - ENDOSCOPY NAME: Suha Cunningham Dodson CLINIC NO.: [id number] DATE OF SERVICE: 02/06/2023 : 1980 REFERRING PHYSICIAN: Medhat Denny MD Suha is a patient I am following with Dr. Woodward for history of abdominal discomfort and anemia. Dr. Woodward performed upper and lower endoscopy on 01/16/23. The patient was found to have gastritis, normal appearing esophagus on upper endoscopy. Colonoscopy appeared normal, random biopsies taken. Pathology demonstrated: FINAL DIAGNOSIS A. Jejunum, biopsy: - Small intestinal mucosa with no diagnostic abnormality. - No evidence of celiac disease. B. Stomach, antrum, biopsy: - Gastric antral mucosa with reactive gastropathy. - No morphologic evidence of Helicobacter pylori organisms. C. Stomach, proximal, biopsy: - Gastric oxyntic mucosa with histologic features consistent with proton pump inhibitor use. - No morphologic evidence of Helicobacter pylori organisms. D. Esophagus, distal, biopsy: - Squamous mucosa with mild reactive epithelial changes. - Negative for intraepithelial eosinophilia. E. Esophagus, mid, biopsy: - Squamous mucosa with no diagnostic abnormality. - Negative for intraepithelial eosinophilia. F. Colon, ascending, random, biopsy: - Colonic mucosa with no diagnostic abnormality. - No evidence of microscopic colitis. G. Terminal ileum, biopsy: - Small intestinal mucosa with no diagnostic abnormality. H. Colon, descending, random, biopsy: - Colonic mucosa with focally denuded epithelium and prominent lymphoid aggregate, otherwise no diagnostic abnormality. - No evidence of microscopic colitis. The patient notes no new complaints since the procedure. She does however continue to note intermittent spasms of abdominal discomfort VITALS: Blood pressure 110/82, pulse 83, temperature 37.1 ?C (98.8 ?F), last menstrual period 03/08/2022, SpO2 99 %. General: patient is alert, cooperative, pleasant and in no acute distress On examination, the abdomen is benign. Assessment IMPRESSION: intermittent abdominal discomfort of unclear etiology. unremarkable colonoscopy and EGD, no obvious signs of GI bleeding noted PLAN: The operative findings and pathology report were reviewed with the patient, and the patient has had the opportunity to ask questions and have questions answered. If the patient notes any problems or changes in bowel function, the patient should contact me immediately. Otherwise I recommend follow up endoscopy in 10 years. Follow up with PCP for anemia Referral to Gastro for further evaluation of abdominal complaints Patient verbalized understanding of all above and agreed with the plan Diagnoses: No diagnosis found. I spent a total of 23 minutes on the date of the service which included preparing to see the patient, [id number] patient care, completing clinical documentation, obtaining and/or reviewing separately obtained history, counseling and educating the patient/family/caregiver, independently interpreting results (not separately reported), and communicating results to the patient/family/caregiver. RASHARD Dobson PA-C 02/06/2023 1:45 PM Addendum -Follow up with primary care and hem/onc for anemia -Referral to GI for further evaluation of abdominal symptoms-notify office if you have not been contacted within a week regarding appointment The following instructions are important for you related to your office visit today with the [facility] General Surgeons. INSTRUCTIONS FOLLOWING A NORMAL COLONOSCOPY 10YR I discussed with you the findings of your colonoscopy. Since there were no worrisome abnormalities, I recommend you undergo repeat endoscopic screening every 10 years. This is the current recommendation for colon cancer screening. If you note bleeding, change in bowel habits, or other suspicious colon related symptoms before that time, those symptoms should be evaluated as necessary. INSTRUCTIONS FOR PEPTIC ULCER DISEASE/GASTRITIS I discussed with you the findings of your upper endoscopy. Your upper endoscopy demonstrated signs of peptic ulcer disease or irritation. This can be seen as a range of issues from actual ulcers in the stomach or duodenum (first part of the small bowel) or irritation ranging from redness to more significant irritation with erosions of the stomach or duodenum. These conditions are usually caused from a combination of too much acid production or too little protective mucus producti (more content not included)... Normal [facility] ([employer]) FIFISUHA AUGUSTE ([id number]) 1980 [facility] Date Time Provider Department 01/24/23 LUKASZ WOODWARD During your visit today, we recorded the following information about you: Lukasz Woodward MD 01/24/2023 6:55 AM Signed FOLLOW UP ENDOSCOPY - RESULTS AND RECOMMENDATIONS NAME: Suha Calix CLINIC NO.: [id number] : 1980 DATE: January 24, 2023 PRIMARY CARE PROVIDER: Medhat Denny MD REFERRING PHYSICIAN: No ref. provider found Suha Calix is a patient referred for endoscopy for abdominal discomfort. I performed upper and lower endoscopy endoscopy on January 16, 2023. The patient was found to have: Upper Endoscopy: Findings: The examined jejunum was normal. Biopsies for histology were taken with a cold forceps for evaluation of celiac disease. The examined duodenum was normal. Scattered mild inflammation characterized by erythema was found in the gastric antrum. Biopsies were taken with a cold forceps for histology. Segmental moderate inflammation characterized by erosions, friability and granularity was found in the gastric fundus. Biopsies were taken with a cold forceps for histology. The lower third of the esophagus was normal. Biopsies were taken with a cold forceps for histology. The middle third of the esophagus was normal. Biopsies were taken with a cold forceps for histology. Lower Endoscopy: Findings: The perianal and digital rectal examinations were normal. The terminal ileum appeared normal. Biopsies were taken with a cold forceps for histology. The colon (entire examined portion) appeared normal. Biopsies for histology were taken with a cold forceps from the ascending colon and descending colon for evaluation of microscopic colitis. The entire examined colon appeared normal on direct and retroflexion views. Pathology demonstrated: FINAL DIAGNOSIS A. Jejunum, biopsy: - Small intestinal mucosa with no diagnostic abnormality. - No evidence of celiac disease. B. Stomach, antrum, biopsy: - Gastric antral mucosa with reactive gastropathy. - No morphologic evidence of Helicobacter pylori organisms. C. Stomach, proximal, biopsy: - Gastric oxyntic mucosa with histologic features consistent with proton pump inhibitor use. - No morphologic evidence of Helicobacter pylori organisms. D. Esophagus, distal, biopsy: - Squamous mucosa with mild reactive epithelial changes. - Negative for intraepithelial eosinophilia. E. Esophagus, mid, biopsy: - Squamous mucosa with no diagnostic abnormality. - Negative for intraepithelial eosinophilia. F. Colon, ascending, random, biopsy: - Colonic mucosa with no diagnostic abnormality. - No evidence of microscopic colitis. G. Terminal ileum, biopsy: - Small intestinal mucosa with no diagnostic abnormality. H. Colon, descending, random, biopsy: - Colonic mucosa with focally denuded epithelium and prominent lymphoid aggregate, otherwise no diagnostic abnormality. - No evidence of microscopic colitis. IMPRESSION: No bloating, no significant findings for pathologic causes PLAN: Patient will likely follow-up with Fab Vincent my impression would be this is more consistent with irritable bowel syndrome. The patient is instructed to follow-up with your primary care provider I have instructed my staff to forward the above information to the patient and to the appropriate providers Allergies As of Date: 01/24/2023 Noted Allergy Reaction LATEX 03/16/2021 2 - Rash PENICILLINS 03/16/2021 10 - Anaphylaxis TAPE (ADHESIVE TAPE-SILICONES) 06/15/2022 2 - Rash TORADOL (KETOROLAC) 03/16/2021 7 - Swelling Comments: Tongue swelling Date Reviewed: 01/16/2023 Reviewed by: Leydi Glez RN - Fully Assessed Reason for Visit: Results [95] Prescriptions as of 01/24/2023 - cyanocobalamin 1,000 mcg/mL INJECT 1ML (1000MCG) IM ONCE A WEEK FOR 4 WEEKS THE INJECT 1ML, IM ONCE A MONTH FOR 5 MONTHS - apixaban (ELIQUIS) 5 mg tab(s) Take 5 mg by mouth twice daily. - dicyclomine (BENTYL) 20 mg tablet TAKE ONE TABLET BY MOUTH THREE TIMES A DAY NEEDED FOR ABDOMINAL PAIN - topiramate (TOPAMAX) 100 mg tablet TAKE 1 TABLET BY MOUTH TWICE A DAY - ferrous sulfate 325 mg (65 mg iron) tablet TAKE 1 TABLET BY MOUTH TWICE A DAY WITH MEALS - tiZANidine (ZANAFLEX) 4 mg tablet Take 0.5-1 tablets by mouth every 8 hours as needed. - BIOTIN ORAL Take 1 capsule by mouth once daily. - pantoprazole DR (PROTONIX) 40 mg tablet TAKE 1 TABLET BY MOUTH DAILY 30 MINUTES BEFORE A MEAL - fluticasone (FLONASE) 50 mcg/actuation nasal spray USE 1 SPRAY IN EACH NOSTRIL ONCE DAILY - levothyroxine (SYNTHROID) 112 mcg tablet Take 1 tablet by mouth once daily. - eletriptan (RELPAX) 20 mg tablet Take 1 tablet by mouth as needed for migraine headache (see administration instructions). may repeat in 2 hours if (more content not included)... Normal [facility] ANES POSTPROC EVALon 023 ANES POSTPROC EVAL HNO ID: [id number] Author: Radha Mendoza MD Service: Anesthesiology Author Type: Anesthesiologist Type: Anesthesia Postprocedure Evaluation Filed: 01/16/2023 2:31 PM Note Text: POST ANESTHESIA EVALUATION NOTE : 1980 Procedure Summary Date: 01/16/23 Room / Location: [facility] Endoscopy Anesthesia Start: 1215 Anesthesia Stop: 1254 Procedures: EGD DIAGNOSTIC COLONOSCOPY DIAGNOSTIC Diagnosis: Abdominal pain, unspecified abdominal location Anemia, unspecified type Change in bowel habits (Generalized abdominal distress) (Abdominal distress) Scheduled Providers: Lukasz Woodward MD; Raymond Teran MD; ARDEN Max Responsible Provider: Raymond Teran MD Anesthesia Type: MAC ASA Status: 2 Anesthesia Type: MAC Last Vitals Vitals Value Taken Time BP 104/59 01/16/23 1334 Temp 36.2 ?C (97.2 ?F) 01/16/23 1330 Pulse 75 01/16/23 1340 Resp 16 01/16/23 1340 SpO2 96 % 01/16/23 1340 Vitals shown include unvalidated device data. Post Anesthesia Patient Status Patient Evaluation: PACU. PACU/ICU Patient Condition: stable. Anticipated Disposition: phase 2 then home. Neurological Status: aware and responsive. Pulmonary Status: breathing comfortably on room air Airway Control: returned to baseline unsupported. Cardiovascular Status: stable. Pain Management: clinically adequate - multimodal analgesia pain management approach Postoperative Hydration: acceptable. Intraoperative Events: no significant anesthesia events Post Operative Nausea/Vomiting Status: no significant post operative nausea or vomiting Recommendation: continue current plan of care. Anesthesia Observations No Documentation SIGNATURE: Radha Mendoza MD PATIENT NAME: Suha Calix DATE: January 16, 2023 TIME: 2:31 PM CSN: [id number] Normal [facility] ANES PRE-OPon 01-16-2023 ANES PRE-OP HNO ID: [id number] Author: Raymond Teran MD Service: Anesthesiology Author Type: Anesthesiologist Type: Anesthesia Preprocedure Evaluation Filed: 01/16/2023 10:37 AM Note Text: ANESTHESIOLOGY DAY OF SURGERY NOTE : 1980 Procedure Information Date/Time: 01/16/23 1215 Scheduled providers: Lukasz Woodward MD; Raymond Teran MD; ARDEN Max Procedures: EGD DIAGNOSTIC COLONOSCOPY DIAGNOSTIC Location: [facility] Endoscopy Estimated body mass index is 20.5 kg/m? as calculated from the following: Height as of 11/09/22: 165.1 cm (5' 5). Weight as of 11/09/22: 55.9 kg (123 lb 3.2 oz). Most recent hematocrit and potassium results: Hematocrit 32.8 10/21/2022 Potassium 3.9 12/09/2022 Relevant Problems CARDIO (+) Migraines ENDO (+) Hypothyroidism NEURO-PSYCH (+) H/O protein C deficiency (+) H/O protein S deficiency (+) History of DVT (deep vein thrombosis) (+) Migraines I - PHYSICAL EVALUATION AIRWAY Patient intubated: No. Tracheostomy tube not present Mallampati: II. TM distance: >3 FB. Neck ROM: full ROM without neurological symptoms. Mouth opening: adequate. DENTAL Dental findings: poor dentition. Additional exam findings: yes. CARDIOVASCULAR Rhythm: regular PULMONARY Breath sounds clear to auscultation. II - ANESTHESIA PLAN ASA Score: 2 Anesthetic Plan: MAC Beta Haja Monitoring Plan Post Procedure Analgesic Plan Informed Consent Anesthetic risks, benefits, alternatives, personnel and consent discussed: yes. Patient / Responsible Green Party agrees to proceed: yes Patient / Surrogate agrees to blood products: blood products not planned No vitals data found for the desired time range. Outpatient Medications as of 01/16/2023 Medication Sig - dicyclomine (BENTYL) 20 mg tablet TAKE ONE TABLET BY MOUTH THREE TIMES A DAY NEEDED FOR ABDOMINAL PAIN - topiramate (TOPAMAX) 100 mg tablet TAKE 1 TABLET BY MOUTH TWICE A DAY - ferrous sulfate 325 mg (65 mg iron) tablet TAKE 1 TABLET BY MOUTH TWICE A DAY WITH MEALS - tiZANidine (ZANAFLEX) 4 mg tablet Take 0.5-1 tablets by mouth every 8 hours as needed. - BIOTIN ORAL Take 1 capsule by mouth once daily. - cyanocobalamin 1,000 mcg/mL Once a week IM for 4 weeks, then once a month for 5 months - pantoprazole DR (PROTONIX) 40 mg tablet TAKE 1 TABLET BY MOUTH DAILY 30 MINUTES BEFORE A MEAL - fluticasone (FLONASE) 50 mcg/actuation nasal spray USE 1 SPRAY IN EACH NOSTRIL ONCE DAILY - levothyroxine (SYNTHROID) 112 mcg tablet Take 1 tablet by mouth once daily. - eletriptan (RELPAX) 20 mg tablet Take 1 tablet by mouth as needed for migraine headache (see administration instructions). may repeat in 2 hours if necessary - acetaminophen (TYLENOL EXTRA STRENGTH) 500 mg tablet Take 2 tablets by mouth every 6 hours. - ibuprofen (MOTRIN) 600 mg tablet Take 1 tablet by mouth every 6 hours. Take with food. - polyethylene glycol 3350 (MIRALAX, GLYCOLAX) 17 gram/dose powder Take 17 g by mouth once daily. - ondansetron orally disintegrating (ZOFRAN ODT) 4 mg disintegrating tablet Take 1 tablet by mouth every 8 hours as needed for nausea/vomiting. No current facility-administered medications on file as of 01/16/2023. I have interviewed and examined the patient. I have reviewed the medical record and/or the pre-anesthesia evaluation, pertinent labs, and test results. This contains updated information obtained within 48 hours of Surgery/Procedure. SIGNATURE: Raymond Teran MD PATIENT NAME: Suha Calix DATE: January 16, 2023 TIME: 10:37 AM CSN: [id number] Normal [facility] COLONOSCOPY DIAGNOSTICon [facility] Colonoscopyon 01-16-2023 Colonoscopy [facility] Gastrointestinal Endoscopy Patient Name: Suha Calix Procedure Date: 01/16/2023 12:31 PM Date of : 1980 Admit Type: Outpatient Age: 42 Room: [facility] Gender: Female Note Status: Finalized Attending MD: Lukasz Woodward MD Procedure: Colonoscopy Indications: Abdominal distress, Iron deficiency anemia, Change in bowel habits Providers: Lukasz Woodward MD Patient Profile: This is a 42 year old female. Refer to note in patient chart for documentation of history and physical. Last Colonoscopy: none. The patient's first colonoscopy is today. Referring Physician: Fab Vincent (pa) (Referring MD) Medicines: Monitored Anesthesia Care Complications: No immediate complications. Requesting Provider: Procedure: Pre-Anesthesia Assessment: - Prior to the procedure, a History and Physical was performed, and patient medications and allergies were reviewed. The patient is competent. The risks and benefits of the procedure and the sedation options and risks were discussed with the patient. All questions were answered and informed consent was obtained. Patient identification and proposed procedure were verified by the physician, the nurse and the trailer rental clerk in the procedure room. Respiratory Examination: clear to auscultation. Prophylactic Antibiotics: The patient does not require prophylactic antibiotics. Prior Anticoagulants: The patient has taken Eliquis (apixaban), last dose was 1 day prior to procedure. ASA Grade Assessment: III - A patient with severe systemic disease. After reviewing the risks and benefits, the patient was deemed in satisfactory condition to undergo the procedure. The anesthesia plan was to use monitored anesthesia care (MAC). Immediately prior to administration of medications, the patient was re-assessed for adequacy to receive sedatives. The heart rate, respiratory rate, oxygen saturations, blood pressure, adequacy of pulmonary ventilation, and response to care were monitored throughout the procedure. The physical status of the patient was re-assessed after the procedure. After I obtained informed consent, the scope was passed under direct vision. Throughout the procedure, the patient's blood pressure, pulse, and oxygen saturations were monitored continuously. The Colonoscope was introduced through the anus and advanced to 7 cm into the ileum. The colonoscopy was performed without difficulty. The patient tolerated the procedure well. The quality of the bowel preparation was good. The terminal ileum, ileocecal valve, appendiceal orifice, and rectum were photographed. Scope Withdrawal Time: 0 hours 7 minutes 11 seconds Moderate Sedation: MAC anesthesia was administered by the anesthesia team. Total Procedure Duration: 0 hours 17 minutes 32 seconds Findings: The perianal and digital rectal examinations were normal. The terminal ileum appeared normal. Biopsies were taken with a cold forceps for histology. The colon (entire examined portion) appeared normal. Biopsies for histology were taken with a cold forceps from the ascending colon and descending colon for evaluation of microscopic colitis. The entire examined colon appeared normal on direct and retroflexion views. Impression: - The examined portion of the ileum was normal. Biopsied. - The entire examined colon is normal. Biopsied. - The entire examined colon is normal on direct and retroflexion views. Recommendation: - Discharge patient to home. - Resume previous diet. - Continue present medications. - Return to physician assistant professor of surgery in 1 week. - Patient has a contact number available for emergencies. The signs and symptoms of potential delayed complications were discussed with the patient. Return to normal activities tomorrow. Written discharge instructions were provided to the patient. - Resume Eliquis (apixaban) today at prior dose. - Repeat colonoscopy is recommended. The colonoscopy date will be determined after pathology results from today's exam become available for review. Procedure Code(s): --- Professional --- 47625, Colonoscopy, flexible; with biopsy, single or multiple CPT copyright 2020 [employer]. All rights reserved. The codes documented in this report are preliminary and upon forestry farm laborer review may be revised to meet current compliance requirements. Attending Participation: I personally performed the entire procedure. Scope In: 12:33:07 PM Scope Out: 12:50:39 PM MD Lukasz Rossi MD 01/16/2023 12:58:49 PM This report has been signed electronically by Lukasz Woodward MD Number of Addenda: 0 Note Initiated On: 01/16/2023 12:31 PM Estimated Blood Loss: Estimated blood loss: none. Normal [facility] EGD DIAGNOSTICon 01-16-2023 [facility] HISTORY PHYSICALon HISTORY PHYSICAL HNO ID: [id number] Author: Lukasz Woodward MD Service: General Surgery Author Type: Physician Type: HANDP Filed: 01/16/2023 11:38 AM Note Text: HISTORY AND PHYSICAL Suha Calix 1980 REFERRING PHYSICIAN: No ref. provider found CHIEF COMPLAINT: Consult (Colonoscopy consult) HPI: The patient is a 42 year old female referred for endoscopy. Suha notes a history of intermittent generalized abdominal pain and anemia. Pain varies in intensity from mild to severe and sometimes feels like spasms, often accompanied by multiple formed stools. Denies dark stools or blood mixed in stools. States pain seems worse with activity. Denies family history of colon issues Suha has not undergone prior endoscopy. She was seen by PCP for CT of abdomen and pelvis which showed no acute abdominal findings. Patient denies chest pain, shortness of breath or recent hospitalizations. Denies problems with sedation in the past. Past medical history significant for IBS and melanoma. She has a history of DVT and is on eliquis. PAST MEDICAL HISTORY PAST MEDICAL HISTORY Diagnosis Date Anxiety and depression DVT (deep venous thrombosis) (HCC) GERD (gastroesophageal reflux disease) H/O protein C deficiency H/O protein S deficiency History of DVT (deep vein thrombosis) 10/04/2021 Hypothyroid Malignant melanoma (HCC) Melanoma (HCC) Migraines Other specified hypothyroidism 10/04/2021 PAST SURGICAL HISTORY PAST SURGICAL HISTORY Procedure Laterality Date SECTION SINGLE 1997 ESOPHAGOGASTRODUODENOSCOPY TRANSORAL DIAGNOSTIC 03/23/2013 EGD HAND SURGERY HX Left trigger finger release 3 rd finger HYSTEROSCOPY, DIAGNOSTIC (SEPARATE 10/18/2021 IR IVC FILTER PLACEMENT 2010 MALIGNANT MELANOMA - WIDE EXCISION IN ANY AREA AND MUST INCLUDE > 1CM MARGINS AND LAYERED CLOSURE TONSILLECTOMY AND ADENOIDECTOMY VAGINAL HYSTERECTOMY 03/08/2022 total CURRENT MEDICATIONS Current Outpatient Medications Medication Sig BIOTIN ORAL Take 1 capsule by mouth once daily. Insulin Syringe-Needle U-100 (BD INSULIN SYRINGE) 1 mL 25 x 1 syrg 1 Each one time a week for 9 doses. ferrous sulfate (IRON) 325 mg (65 mg iron) tablet Take 1 tablet by mouth twice daily with meals. cyanocobalamin 1,000 mcg/mL Once a week IM for 4 weeks, then once a month for 5 months dicyclomine (BENTYL) 20 mg tablet TAKE ONE TABLET THREE TIMES A DAY NEEDED FOR ABDOMINAL PAIN pantoprazole DR (PROTONIX) 40 mg tablet TAKE 1 TABLET BY MOUTH DAILY 30 MINUTES BEFORE A MEAL fluticasone (FLONASE) 50 mcg/actuation nasal spray USE 1 SPRAY IN EACH NOSTRIL ONCE DAILY tiZANidine (ZANAFLEX) 4 mg tablet TAKE 1 TABLET BY MOUTH THREE TIMES A DAY NEEDED FOR PAIN topiramate (TOPAMAX) 100 mg tablet TAKE 1 TABLET BY MOUTH TWICE A DAY levothyroxine (SYNTHROID) 112 mcg tablet Take 1 tablet by mouth once daily. eletriptan (RELPAX) 20 mg tablet Take 1 tablet by mouth as needed for migraine headache (see administration instructions). may repeat in 2 hours if necessary acetaminophen (TYLENOL EXTRA STRENGTH) 500 mg tablet Take 2 tablets by mouth every 6 hours. ibuprofen (MOTRIN) 600 mg tablet Take 1 tablet by mouth every 6 hours. Take with food. polyethylene glycol 3350 (MIRALAX, GLYCOLAX) 17 gram/dose powder Take 17 g by mouth once daily. apixaban (ELIQUIS) 5 mg tab(s) Take 1 tablet by mouth twice daily. ondansetron orally disintegrating (ZOFRAN ODT) 4 mg disintegrating tablet Take 1 tablet by mouth every 8 hours as needed for nausea/vomiting. No current facility-administered medications for this visit. ALLERGIES: Latex, Penicillins, Tape [Adhesive Tape-Silicones], and Toradol [Ketorolac] PERSONAL HISTORY: SOCIAL HISTORY Social History Tobacco Use Smoking status: Former Packs/day: 1.00 Years: 22.00 Pack years: 22.00 Types: Cigarettes Quit date: 03/23/2016 Years since quittin.6 Smokeless tobacco: Never Vaping Use Vaping Use: Never used Substance Use Topics Alcohol use: Not Currently Drug use: Never FAMILY HISTORY: FAMILY HISTORY FAMILY HISTORY Problem Relation Age of Onset Clotting Disorder Father Protein C and S deficiency No Known Problems Mother Clotting Disorder Paternal Grandfather Anesthesia Problems No Family History REVIEW OF SYMPTOMS: The review of systems data was entered by the nurse and reviewed by tn Nursing Notes: Dee Pratt RN 11/02/2022 9:55 AM Signed REVIEW OF SYSTEMS: General: The patient NOTES fatigue, NOTES weight loss, denies weight gain, denies feeling hot, and NOTES feelings of cold. Eyes: The patient denies glaucoma, denies eye injury/surgery, wears glasses or contacts. Ear/Nose/Throat: The patient NOTES allergies, denies hayfever, denies ear infections, and denies bloody noses. Cardiovascular: The patient denies chest pain, denies heart disease, denies high blood pressure,denies cardiac stent, denies prior heart at (more content not included)... Normal [facility] SURGICAL PATHOLOGYon 023 CASE REPORT [facility] Comment on above: Order Comment: Alejandro mcmanus Type: TISSUE SPECIMEN Ordering Facility: [facility] Address: [address] [place] [address] Result Comment: Surg ical Pathology Report Case: [id number] Authorizing Provider: Lukasz Woodward MD Collected: 01/16/2023 12:26 PM Ordering Location: [facility] Endoscopy Received: 01/16/2023 03:03 PM Pathologist: Ivy Chapa MD Specimens: A) - JEJUNUM BIOPSY, r/o celiac B) - ANTRUM (STOMACH) BIOPSY C) - STOMACH BIOPSY, proximal gastric bx D) - ESOPHAGUS BIOPSY, distal esophagus bx E) - ESOPHAGUS MID BIOPSY F) - ASCENDING COLON BIOPSY, random ascending colon bx G) - TERMINAL ILEUM BIOPSY H) - DESCENDING COLON BIOPSY, random descending bx Performed By: #### S #### [facility] CLIA [id number] [facility] [address] [place] FINAL DIAGNOSIS [facility] Comment on above: Order Comment: Alejandro mcmanus Type: TISSUE SPECIMEN Ordering Facility: [facility] Address: [address] [place] [address] Result Comment: A. J ejunum, biopsy: - Small intestinal mucosa with no diagnostic abnormality. - No evidence of celiac disease. B. Stomach, antrum, biopsy: - Gastric antral mucosa with reactive gastropathy. - No morphologic evidence of Helicobacter pylori organisms. C. Stomach, proximal, biopsy: - Gastric oxyntic mucosa with histologic features consistent with proton pump inhibitor use. - No morphologic evidence of Helicobacter pylori organisms. D. Esophagus, distal, biopsy: - Squamous mucosa with mild reactive epithelial changes. - Negative for intraepithelial eosinophilia. E. Esophagus, mid, biopsy: - Squamous mucosa with no diagnostic abnormality. - Negative for intraepithelial eosinophilia. F. Colon, ascending, random, biopsy: - Colonic mucosa with no diagnostic abnormality. - No evidence of microscopic colitis. G. Terminal ileum, biopsy: - Small intestinal mucosa with no diagnostic abnormality. H. Colon, descending, random, biopsy: - Colonic mucosa with focally denuded epithelium and prominent lymphoid aggregate, otherwise no diagnostic abnormality. - No evidence of microscopic colitis. Performed By: #### S #### [facility] CLIA [id number] [address] [place] [address] FINAL PERFORMING LAB Normal [facility] Comment on above: Order Comment: Speci men Type: TISSUE SPECIMEN Ordering Facility: [facility] Address: [address] [place] [address] Result Comment: Diag nostic interpretation performed at [facility], [facility] [place] [address] CLIA# [id number] Doormaker: Po Valente M.D. Performed By: #### S #### [facility] CLIA [id number] [address] [place] [address] GROSS DESCRIPTION Normal [facility] Comment on above: Order Comment: Speci marietta Type: TISSUE SPECIMEN Ordering Facility: [facility] Address: [address] [place] [address] Result Comment: A. J EJUNUM BIOPSY Received in formalin are multiple pieces of berger, soft tissue aggregating to 0.5 x 0.3 x 0.3 cm. Totally submitted in one cassette. B. ANTRUM (STOMACH) BIOPSY Received in formalin is one piece of berger-white, soft tissue measuring 0.3 x 0.3 x 0.3 cm. Totally submitted in one cassette. C. STOMACH BIOPSY Received in formalin is one piece of berger-brown, soft tissue measuring 0.4 x 0.3 x 0.3 cm. Totally submitted in one cassette. D. ESOPHAGUS BIOPSY Received in formalin is one piece of berger-white, soft tissue measuring 0.6 x 0.3 x 0.1 cm. Totally submitted in one cassette. E. ESOPHAGUS MID BIOPSY Received in formalin are multiple pieces of berger-white, soft tissue aggregating to 0.6 x 0.3 x 0.2 cm. Totally submitted in one cassette. F. ASCENDING COLON BIOPSY Received in formalin are multiple pieces of berger-brown, soft tissue aggregating to 0.7 x 0.3 x 0.2 cm. Totally submitted in one cassette. G. TERMINAL ILEUM BIOPSY Received in formalin is one piece of berger, soft tissue measuring 0.3 x 0.3 x 0.2 cm. Totally submitted in one cassette. H. DESCENDING COLON BIOPSY Received in formalin is one piece of berger, soft tissue measuring 0.2 x 0.2 x 0.2 cm. Totally submitted in one cassette. KK January 16, 2023 8:39 PM [place] [address] Performed By: #### S #### [facility] CLIA [id number] [address] [place] [address] [place] Upper GI endoscopy 01-16-2 023 Upper GI endoscopy [facility] Gastrointestinal Endoscopy Patient Name: Suha Calix Procedure Date: 01/16/2023 12:17 PM Date of : 1980 Admit Type: Outpatient Age: 42 Room: [facility] Gender: Female Note Status: Finalized Attending MD: Lukasz Woodward MD Procedure: Upper GI endoscopy Indications: Generalized abdominal distress, Iron deficiency anemia Providers: Lukasz Woodward MD Patient Profile: This is a 42 year old female. Refer to note in patient chart for documentation of history and physical. Referring Physician: Fab Vincent (pa) (Referring MD) Medicines: Monitored Anesthesia Care Complications: No immediate complications. Requesting Provider: Procedure: Pre-Anesthesia Assessment: - Prior to the procedure, a History and Physical was performed, and patient medications and allergies were reviewed. The patient is competent. The risks and benefits of the procedure and the sedation options and risks were discussed with the patient. All questions were answered and informed consent was obtained. Patient identification and proposed procedure were verified by the physician, the nurse and the trailer rental clerk in the procedure room. Mental Status Examination: alert and oriented. Prophylactic Antibiotics: The patient does not require prophylactic antibiotics. Prior Anticoagulants: The patient has taken Eliquis (apixaban), last dose was 1 day prior to procedure. ASA Grade Assessment: III - A patient with severe systemic disease. After reviewing the risks and benefits, the patient was deemed in satisfactory condition to undergo the procedure. The anesthesia plan was to use monitored anesthesia care (MAC). Immediately prior to administration of medications, the patient was re-assessed for adequacy to receive sedatives. The heart rate, respiratory rate, oxygen saturations, blood pressure, adequacy of pulmonary ventilation, and response to care were monitored throughout the procedure. The physical status of the patient was re-assessed after the procedure. After obtaining informed consent, the endoscope was passed under direct vision. Throughout the procedure, the patient's blood pressure, pulse, and oxygen saturations were monitored continuously. The Endoscope was introduced through the mouth, and advanced to the jejunum. The upper GI endoscopy was accomplished without difficulty. The patient tolerated the procedure well. Moderate Sedation: MAC anesthesia was administered by the anesthesia team. Total Procedure Duration: 0 hours 5 minutes 52 seconds Findings: The examined jejunum was normal. Biopsies for histology were taken with a cold forceps for evaluation of celiac disease. The examined duodenum was normal. Scattered mild inflammation characterized by erythema was found in the gastric antrum. Biopsies were taken with a cold forceps for histology. Segmental moderate inflammation characterized by erosions, friability and granularity was found in the gastric fundus. Biopsies were taken with a cold forceps for histology. The lower third of the esophagus was normal. Biopsies were taken with a cold forceps for histology. The middle third of the esophagus was normal. Biopsies were taken with a cold forceps for histology. Impression: - Normal examined jejunum. Biopsied. - Normal examined duodenum. - Gastritis. Biopsied. - Gastritis. Biopsied. - Normal lower third of esophagus. Biopsied. - Normal middle third of esophagus. Biopsied. Recommendation: - Discharge patient to home. - Resume previous diet. - Continue present medications. - Return to physician assistant professor of surgery in 1 week. Procedure Code(s): --- Professional --- 91249, Esophagogastroduodenoscopy, flexible, transoral; with biopsy, single or multiple CPT copyright 2020 [employer]. All rights reserved. The codes documented in this report are preliminary and upon forestry farm laborer review may be revised to meet current compliance requirements. Attending Participation: I personally performed the entire procedure. Scope In: 12:25:00 PM Scope Out: 12:30:52 PM MD Lukasz Rossi MD 01/16/2023 12:55:07 PM This report has been signed electronically by Lukasz Woodward MD Number of Addenda: 0 Note Initiated On: 01/16/2023 12:17 PM Estimated Blood Loss: Estimated blood loss: none. Normal [facility] FREE LIGHT CHAINS ([facility])o n 12-14-2022 [place] Free, Serum 22.5 mg/L High 3.3 - 19.4 mg/L [facility] [place]sworth:Lambda 2.03 Ratio High 0.26 - 1.65 Ratio [facility] Lambda Free, Serum 11.1 mg/L 5.7 - 26. 3 mg/L [facility] PEPURINEon 12-14-2022 A-1-GLOB UR 9.4 % Normal . [facility] Comment on above: Performed By: #### L 801.4500 #### [place] [address] A-2-GLOB UR 15.4 % Normal . [facility] Comment on above: Performed By: #### L 801.4500 #### [place] [address] ALBUMIN, UR 44.8 % Normal . [facility] Comment on above: Performed By: #### L 801.4500 #### [place] [address] BETA GLOB UR 16.7 % Normal . [facility] Comment on above: Performed By: #### L 801.4500 #### [place] [address] GAMMA GLOB UR 13.7 % Normal . [facility] Comment on above: Performed By: #### L 801.4500 #### [place] [address] M-SPIKE, % Not Observed Normal Not Observed [facility] Comment on above: Performed By: #### L 801.4500 #### [place] [address] PLEASE NOTE: Normal [facility] Comment on above: Result Comment: Prot ein electrophoresis scan will follow via computer, mail, or real estate valuer delivery. Performed at: - [facility] [id number] Pharmacy Teacher: Jeffry Schreiber PhD, Phone: [phone] Performed By: #### L 801.4500 #### [place] [address] Protein (U) [Mass/Vol] 11.8 mg/dL Normal Not Estab. [facility] Comment on above: Performed By: #### L 801.4500 #### [place] [address] SER PROT ELEC & CARLENE ([facility] )on 12-14-2022 Albumin [Mass/Vol] 4.1 g/dL 2.9 - 4.4 g/dL [facility] Albumin/Globulin [Mass ratio] 1.7 {ratio} 0.7 - 1.7 [facility] Alpha 1 Globulin 0.3 g/dL 0.0 - 0.4 g/dL [facility] Alpha 2 Globulin 0.7 g/dL 0.4 - 1.0 g/dL [facility] Beta Globulin 0.9 g/dL 0.7 - 1.3 g/dL [facility] Gamma Globulin 0.6 g/dL 0.4 - 1.8 g/dL [facility] Globulin (S) [Mass/Vol] 2.5 g/dL 2.2 - 3.9 g/dL [facility] Immunofixation [facility] Immunoglobulin A 41 mg/dL Low 87 - 352 mg/dL [facility] Immunoglobulin G 473 mg/dL Low 586 - 1,602 mg/dL [facility] Immunoglobulin M 122 mg/dL 26 - 217 mg/dL [facility] M-SPIKE Not Observed Not Observed g/dL [facility] Note (for Antibiotics in Combo) [facility] Protein [Mass/Vol] 6.6 g/dL 6.0 - 8.5 g/dL [facility] URINE PROT ELEC/RAND ([facility])on 12-14-2022 Albumin, Urine 44.8 % [facility] Alpha 1 Globulin, Urine 9.4 % [facility] Alpha 2 Globulin, Urine 15.4 % [facility] Beta Globulin, Urine 16.7 % [facility] Gamma Globulin, Urine 13.7 % [facility] M-Javan, % Not Observed Not Observed % [facility] PLEASE NOTE [facility] Protein (U) [Mass/Vol] 11.8 mg/dL Not Estab. mg/dL [facility] Fr Light Chainson 12-13-2022 Free [place] Lt 22.5 mg/L High 3.3-19.4 [facility] Comment on above: Performed By: #### L 801.4500 #### [place] [address] Free Lambda Lt 11.1 mg/L Normal 5.7-26.3 [facility] Comment on above: Performed By: #### L 801.4500 #### [place] [address] [place]/Lambda 2.03 Ratio High 0.26-1.65 [facility] Comment on above: Result Comment: Perf ormed at: [facility] [facility] [address] [id number] Pharmacy Teacher: Jeffry Schreiber PhD, Phone: [phone] Performed By: #### L 801.4500 #### [place] [address] CARLENE URINE ([facility])on 2022 CARLENE URINE [facility] CARLENE-Uon 12-13-2022 CARLENE-U Normal [facility] Comment on above: Result Comment: No m onoclonality detected. Performed at: [facility] [address] [id number] Pharmacy Teacher: Jeffry Schreiber PhD, Phone: [phone] Performed By: #### L 801.4500 #### [place] [address] SPEP & IFEon 12-13-2022 Albumin [Mass/Vol] 4.1 g/dL Normal 2.9-4.4 [facility] Comment on above: Performed By: #### L 801.4500 #### [place] [address] Albumin/Globulin [Mass ratio] 1.7 {ratio} Normal 0.7-1.7 [facility] Comment on above: Performed By: #### L 801.4500 #### [place] [address] [id number] 0.3 g/dL Normal 0.0-0.4 [facility] Comment on above: Performed By: #### L 801.4500 #### [place] [address] ENRYJ-0-VZLW 0.7 g/dL Normal 0.4-1.0 [facility] Comment on above: Performed By: #### L 801.4500 #### [place] [address] BETA GLOBULIN 0.9 g/dL Normal 0.7-1.3 [facility] Comment on above: Performed By: #### L 801.4500 #### [place] [address] GAMMA GLOBULIN 0.6 g/dL Normal 0.4-1.8 [facility] Comment on above: Performed By: #### L 801.4500 #### [place] [address] Globulin (S) [Mass/Vol] 2.5 g/dL Normal 2.2-3.9 [facility] Comment on above: Performed By: #### L 801.4500 #### [place] [address] IgA [Mass/Vol] 41 mg/dL Low 87-352 [facility] Comment on above: Result Comment: Resu lt confirmed on concentration. Performed By: #### L 801.4500 #### [place] [address] IgG [Mass/Vol] 473 mg/dL Low 586-1602 [facility] Comment on above: Performed By: #### L 801.4500 #### [place] [address] IgM [Mass/Vol] 122 mg/dL Normal 26-217 [facility] Comment on above: Performed By: #### L 801.4500 #### [place] [address] IMMFIX RESULT Normal [facility] Comment on above: Result Comment: No m onoclonality detected. THIS IS A CORRECTED REPORT 12/12/221610: IMMFIX RESULT previously reported as: Performed By: #### L 801.4500 #### [place] [address] M-SPIKE Not Observed Normal Not Observed [facility] Comment on above: Performed By: #### L 801.4500 #### [place] [address] NOTE: Normal [facility] Comment on above: Result Comment: Prot ein electrophoresis scan will follow via computer, mail, or real estate valuer delivery. Performed at: [address] [id number] Pharmacy Teacher: Jeffry Schreiber PhD, Phone: [phone] THIS IS A CORRECTED REPORT 12/12/221610: NOTE: previously reported as: Performed By: #### L 801.4500 #### [place] [address] Protein [Mass/Vol] 6.6 g/dL Normal 6.0-8.5 [facility] Comment on above: Performed By: #### L 801.4500 #### [place] [address] CMPon 12-09-2022 A:G RATIO 3.13 High 1.1-2.5 [facility] Comment on above: Performed By: #### L 100.0005, L304.0200, L304.0240 #### ML - [facility] [address] [place] [address] ALK. PHOS 63 U/L Normal 35-105 [facility] Comment on above: Performed By: #### L 100.0005, L304.0200, L304.0240 #### [facility] [address] [place] [address] eGFR if AFR SARITHA > 60 ml/min/1.73m2 Normal [facility] Comment on above: Result Comment: eGFR >= 60 Indicates normal kidney function. * eGFR IS AN ESTIMATE * (AFR SARITHA = ) (non-AFR AM = NON-) MDRD calculation used in the eGFR should not be used to dose medications. For further limitations of the eGFR please refer to the Physician Website or the National Kidney Disease Education Program website (www.nkdep.nih.gov). Performed By: #### L 100.0005, L304.0200, L304.0240 #### [facility] [address] [place] [address] eGFR nonAFR Saritha > 60 ml/Min/1.73m2 Normal [facility] Comment on above: Performed By: #### L 100.0005, L304.0200, L304.0240 #### [facility] [address] [place] [address] Albumin [Mass/Vol] 4.7 g/dL 3.5 - 5.2 g/dL [facility] Comment on above: Performed By: #### L 100.0005, L304.0200, L304.0240 #### [facility] [address] [place] [address] ALT [Catalytic activity/Vol] 12 U/L 5 - 33 U/L [facility] Comment on above: Performed By: #### L 100.0005, L304.0200, L304.0240 #### [facility] [address] [place] [address] Anion gap [Moles/Vol] 15.9 mmol/L 15 - 2 2 mmol/L [facility] Comment on above: Performed By: #### L 100.0005, L304.0200, L304.0240 #### - [facility] [address] [place] [address]78 AST [Catalytic activity/Vol] 15 U/L 5 - 32 U/L [facility] Comment on above: Performed By: #### L 100.0005, L304.0200, L304.0240 #### - [facility] [address] [place] [address] Bilirubin [Mass/Vol] 0.3 mg/dL 0.2 - 1 .2 mg/dL [facility] Comment on above: Performed By: #### L 100.0005, L304.0200, L304.0240 #### - [facility] [address] [place] [address] Calcium [Mass/Vol] 9.3 mg/dL 8.6 - 10. 0 mg/dL [facility] Comment on above: Performed By: #### L 100.0005, L304.0200, L304.0240 #### [facility] [address] [place] [address] Chloride [Moles/Vol] 103 mmol/L 98 - 10 7 mmol/L [facility] Comment on above: Performed By: #### L 100.0005, L304.0200, L304.0240 #### - [facility] [address] [place] [address]74 CO2 [Moles/Vol] 24 mmol/L 22 - 29 mmol/L [facility] Comment on above: Performed By: #### L 100.0005, L304.0200, L304.0240 #### - [facility] [address] [place] [address] Creatinine [Mass/Vol] 0.95 mg/dL High 0.50 - 0.90 mg/dL [facility] Comment on above: Performed By: #### L 100.0005, L304.0200, L304.0240 #### [facility] [address] [place] [address] Globulin (S) [Mass/Vol] 1.5 g/dL 1.5 - 4.5 g/dL [facility] Comment on above: Performed By: #### L 100.0005, L304.0200, L304.0240 #### ML - [facility] [address] [place] [address] Glucose [Mass/Vol] 70 mg/dL Low 74 - 106 mg/dL [facility] Comment on above: Performed By: #### L 100.0005, L304.0200, L304.0240 #### ML - [facility] [address] [place] [address] Potassium [Moles/Vol] 3.9 mmol/L 3.5 - 5.0 mmol/L [facility] Comment on above: Performed By: #### L 100.0005, L304.0200, L304.0240 #### ML - [facility] [address] [place] [address] Protein [Mass/Vol] 6.2 g/dL Low 6.4 - 8.3 g/dL [facility] Comment on above: Performed By: #### L 100.0005, L304.0200, L304.0240 #### ML - [facility] [address] [place] [address]657 Sodium [Moles/Vol] 139 mmol/L 135 - 145 mmol/L [facility] Comment on above: Performed By: #### L 100.0005, L304.0200, L304.0240 #### ML - [facility] [address] [place] [address]156 Urea nitrogen [Mass/Vol] 14 mg/dL 6 - 20 mg/dL [facility] Comment on above: Performed By: #### L 100.0005, L304.0200, L304.0240 #### ML - [facility] [address] [place] [address] Comprehensive metabolic 2000 panelon 12-09-2022 Albumin/Globulin [Mass ratio] 3.13 {ratio} High 1.1 - 2.5 [facility] ALP [Catalytic activity/Vol] 63 U/L 35 - 105 U/L [facility] eGFR-All Other Races > 60 ml/Min/1.73m2 [facility] GFR/1.73 sq M.predicted among blacks MDRD (S/P/Bld) [Vol rate/Area] mL/min/{1.73_m2} [facility] FERRITINon 12-09-2022 Ferritin [Mass/Vol] 94.0 ng/mL Normal 13-150 [facility] Comment on above: Performed By: #### L 100.0005, L304.0200, L304.0240 #### ML - [facility] [address] [place] [address] FERRITIN BLDon 12-09-2022 Ferritin [Mass/Vol] 94.0 ng/mL 13 - 150 ng/mL [facility] FOLATEon 12-09-2022 FOLATE 5.5 ng/mL Normal 4.8-24.2 [facility] Comment on above: Performed By: #### L 304.0210 #### ML - [facility] [address] [place] [address] Folate [Mass/Vol]on 12-09-19 Folate 5.5 ng/mL 4.8 - 24.2 ng/mL [facility] IRON & TIBCon 12-09-2022 % FE. SAT. 9 % Low 10-32 [facility] Comment on above: Performed By: #### L 304.0210 #### [facility] - [facility] [address] [place] [address] Iron [Mass/Vol] 42 ug/dL Normal 37-145 [facility] Comment on above: Performed By: #### L 304.0210 #### ML - [facility] [address] [place] [address] TIBC 444 mg/dL Normal 269-535 [facility] Comment on above: Performed By: #### L 304.0210 #### [facility] - [facility] [address] [place] [address] Transferrin [Mass/Vol] 317 mg/dL Normal 200-360 [facility] Comment on above: Performed By: #### L 304.0210 #### ML - [facility] [address] [place] [address]44 Iron and Iron binding capaci ty panelon 12-09-2022 % Saturation (TIBC) 9 % Low 10 - 32 % [facility] Iron [Mass/Vol] 42 ug/dL 37 - 145 ug/dL [facility] TIBC 444 mg/dL 269 - 535 mg/dL [facility] Transferrin [Mass/Vol] 317 mg/dL 200 - 360 mg/dL [facility] RETICon 12-09-[address] 0.060 x10(6)uL Normal 0.036-0.09 6 [facility] Comment on above: Performed By: #### L 200.1550 #### ML - [facility] [address] [place] [address]341 RBC 4.66 x10(6) Normal 3.30-5.00 [facility] Comment on above: Performed By: #### L 200.1550 #### ML [facility] [address] [place] [address]12 RETIC 1.28 % Normal 1.01-2.21 [facility] Comment on above: Performed By: #### L 200.1550 #### ML [facility] [address] [place] [address]64 Reticulocytes (Bld) [#/Vol]o n 12-09-2022 RBC (Bld) [#/Vol] 4.66 x10(6) 3.30 - 5.00 x10(6) [facility] RETICULOCYTE COUNT 1.28 % 1.01 - 2.21 % [facility] RETICULOCYTE COUNT,ABSOLUTE 0.060 x10(6)uL 0.036 - 0.096 x10(6)uL [facility] VIT. B12on 12-09-2022 Cobalamin (Vitamin B12) [Mass/Vol] 539.4 pg/mL Normal 232-1245 [facility] Comment on above: Performed By: #### L 100.0005, L304.0200, L304.0240 #### [facility] - [facility] [address] [place] [address] VITAMIN B12 BLOODon 12-09-19 Cobalamin (Vitamin B12) [Mass/Vol] 539.4 pg/mL 232 - 1,245 pg/mL [facility] IGAon 11-16-2022 IgA [Mass/Vol] 40 mg/dL Low 87-352 [facility] Comment on above: Result Comment: Resu lt confirmed on concentration. Performed By: #### L 800.0900, L800.0920, L800.0910 ####[place] [address] IGA BLDon 11-16-2022 IgA [Mass/Vol] 40 mg/dL Low 87 - 352 mg/dL [facility] IGGon 11-16-2022 IgG [Mass/Vol] 442 mg/dL Low 586-1602 [facility] Comment on above: Performed By: #### L 800.0900, L800.0920, L800.0910 ####[place] [address] IgG [Mass/Vol] 442 mg/dL Low 586 - 1,602 mg/dL [facility] IGMon 11-16-2022 IgM [Mass/Vol] 118 mg/dL Normal 26-217 [facility] Comment on above: Result Comment: Perf ormed at: [employer] [id number] Pharmacy Teacher: Jeffry Schreiber PhD, Phone: [phone] Performed By: #### L 800.0900, L800.0920, L800.0910 ####[place] [address] IgM [Mass/Vol] 118 mg/dL 26 - 217 mg/dL [facility] CELIAC COMPREHENSIVE PANELon 11-14-2022 Endomysial Ab, IgA Negative Negative [facility] Gliadin Ab, IgA 3 units 0 - 19 units [facility] Gliadin Ab, IgG 2 units 0 - 19 units [facility] Immunoglobulin A 39 mg/dL Low 87 - 352 mg/dL [facility] T-TRANSGLU (TTG) <2 0 - 5 U/mL [facility] TISSUE TRANSGLUTAM AB (IGA) <2 0 - 3 U/mL [facility] CELIACCOMPon 11-14-2022 ENDOMYSIAL IGA Negative Normal Negative [facility] Comment on above: Result Comment: Perf ormed at: [employer] [id number] Pharmacy Teacher: Jeffry Schreiber PhD, Phone: [phone] Performed By: #### L 800.1439 #### [place] [address] GLIADIN ABS IGA 3 units Normal 0-19 [facility] Comment on above: Result Comment: Nega tive 0 - 19 Weak Positive 20 - 30 Moderate to Strong Positive >30 Performed By: #### L 800.1439 #### [place] [address] GLIADIN ABS IGG 2 units Normal 0-19 [facility] Comment on above: Result Comment: Nega tive 0 - 19 Weak Positive 20 - 30 Moderate to Strong Positive >30 Performed By: #### L 800.1439 #### [place] [address] IgA [Mass/Vol] 39 mg/dL Low 87-352 [facility] Comment on above: Result Comment: Resu lt confirmed on concentration. Performed at: [employer] [id number] Pharmacy Teacher: Jeffry Schreiber PhD, Phone: [phone] Performed By: #### L 800.1439 #### [place] [address] T-TRANSGLU(TTG) <2 Normal 0-5 [facility] Comment on above: Result Comment: Nega tive 0 - 5 Weak Positive 6 - 9 Positive >9 Performed By: #### L 800.1439 #### [place] [address] TISSUETRANS <2 Normal 0-3 [facility] Comment on above: Result Comment: Nega tive 0 - 3 Weak Positive 4 - 10 Positive >10 Tissue Transglutaminase (tTG) has been identified as the endomysial antigen. Studies have demonstr- ated that endomysial IgA antibodies have over 99% specificity for gluten sensitive enteropathy. Performed By: #### L 800.1439 #### [place] [address] Laith 11-14-2022 CNPN Telephone (FMUPCN) SUHA CALIX ([id number]) 1980 F Date Time Provider Department 11/14/22 MEDHAT DENNY FMUPCN During your visit today, we recorded the following information about you: Lala Mota 11/14/2022 3:28 PM Signed Patient calls today. Reason for Call: Patient called in to check the status of her iron infusion referral. She is also asking for the results of her celiac labs because she doesn't understand them. Please advise Thank you! [phone] (home) [phone] (cell) Patient last appointment: 11/09/2022 Lala Denny MD 11/14/2022 3:40 PM Signed IV iron was ordered 11/09, can we follow up on this? Also please let Suha know her celiac panel cannot be interpreted correctly because her IgA level is low. This is a type of immune cell. I'd like to confirm this with another lab test. I've also placed a hematology consult MD Libby Estrada MA 11/14/2022 3:59 PM Signed Left message for patient to call. Patient iron infusion is scheduled for 11/16/2022 at [facility]. Sending to [employer], central scheduling request a prior auth on Iron infusion since it is a medication. Please let me know when you have the Prior auth # so I can call central scheduling with the number Lala Mota 11/15/2022 9:22 AM Signed The patient called back and I relayed the message to her. She is asking what time the infusion is tomorrow. I called the office but Antoinette was unable to reach Libby. She also had her new labs redrawn last night. Patient is at work and said OK to leave a detailed message on her machine. Thanks! Lala Harrison MA 11/15/2022 12:13 PM Addendum Spoke with patient and informed at is at 10:00 am 11/16/2021 at [facility]. Did inform patient that it did need a prior auth and I will be checking to see is infusion was approved. Jennifer Leach 11/15/2022 11:36 AM Signed Cyndie from central scheduling calls and states that she still has not heard of an approval for patients iron infusion scheduled for tomorrow. She would like to know if we had heard about the approval. Please advise, Thanks Roxana Leach 11/15/2022 12:07 PM Signed Per automated system at [facility], no auth required for Cpt J1756. Call ref #[id number]. This is the Cpt code we use for OB. Please check this code with [facility]. If a different Cpt code needs checked, let me know. Libby Harrison MA 11/15/2022 12:16 PM Signed I spoke with Noemi at [facility] and gave her ref#. 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 Patient advised that office will call to schedule appointment. 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 - methocarbamol (ROBAXIN) 500 mg tablet Take 1 tablet by mouth three times daily for 14 days. - BIOTIN ORAL Take 1 capsule by mouth once daily. - Insulin Syringe-Needle U-100 (BD INSULIN SYRINGE) 1 mL 25 x 1 syrg 1 Each one time a week for 9 doses. - ferrous sulfate (IRON) 325 mg (65 mg iron) tablet Take 1 tablet by mouth twice daily with meals. - cyanocobalamin 1,000 mcg/mL Once a week IM for 4 weeks, then once a month for 5 months - pantoprazole DR (PROTONIX) 40 mg tablet TAKE 1 TABLET BY MOUTH DAILY 30 MINUTES BEFORE A MEAL - fluticasone (FLONASE) 50 mcg/actuation nasal spray USE 1 SPRAY IN EACH NOSTRIL ONCE DAILY - topiramate (TOPAMAX) 100 mg tablet TAKE 1 TABLET BY MOUTH TWICE A DAY - levothyroxine (SYNTHROID) 112 mcg tablet Take 1 tablet by mouth once daily. - eletriptan (RELPAX) 20 mg tablet Take 1 tablet by mouth as needed for migraine headache (see administration instructions). may repeat in 2 hours if necessary - acetaminophen (TYLENOL EXTRA STRENGTH) 500 mg table (more content not included)... [facility] ([id number]) 1980 F Date Time Provider Department 11/09/22 3:20 PM NURSE [facility] During your visit today, we recorded the following information about you: RT Ezra(R) 11/09/2022 3:12 PM Signed 3 VIEW RIGHT HIP W/ PELVIS x-ray performed @ [facility] RT Ezra(R) Allergies As of Date: 11/09/2022 Noted Allergy Reaction LATEX 03/16/2021 2 - Rash PENICILLINS 03/16/2021 10 - Anaphylaxis TAPE (ADHESIVE TAPE-SILICONES) 06/15/2022 2 - Rash TORADOL (KETOROLAC) 03/16/2021 7 - Swelling Comments: Tongue swelling Date Reviewed: 11/09/2022 Reviewed by: Medhat Denny MD - Fully Assessed Reason for Visit: Radiology XR [1491] Cmt: RT HIP XRAY Primary Visit Diagnosis:Right hip pain [M25.551] Prescriptions as of 11/09/2022 - methocarbamol (ROBAXIN) 500 mg tablet Take 1 tablet by mouth three times daily for 14 days. - BIOTIN ORAL Take 1 capsule by mouth once daily. - Insulin Syringe-Needle U-100 (BD INSULIN SYRINGE) 1 mL 25 x 1 syrg 1 Each one time a week for 9 doses. - ferrous sulfate (IRON) 325 mg (65 mg iron) tablet Take 1 tablet by mouth twice daily with meals. - cyanocobalamin 1,000 mcg/mL Once a week IM for 4 weeks, then once a month for 5 months - dicyclomine (BENTYL) 20 mg tablet TAKE ONE TABLET THREE TIMES A DAY NEEDED FOR ABDOMINAL PAIN - pantoprazole DR (PROTONIX) 40 mg tablet TAKE 1 TABLET BY MOUTH DAILY 30 MINUTES BEFORE A MEAL - fluticasone (FLONASE) 50 mcg/actuation nasal spray USE 1 SPRAY IN EACH NOSTRIL ONCE DAILY - topiramate (TOPAMAX) 100 mg tablet TAKE 1 TABLET BY MOUTH TWICE A DAY - levothyroxine (SYNTHROID) 112 mcg tablet Take 1 tablet by mouth once daily. - eletriptan (RELPAX) 20 mg tablet Take 1 tablet by mouth as needed for migraine headache (see administration instructions). may repeat in 2 hours if necessary - acetaminophen (TYLENOL EXTRA STRENGTH) 500 mg tablet Take 2 tablets by mouth every 6 hours. - ibuprofen (MOTRIN) 600 mg tablet Take 1 tablet by mouth every 6 hours. Take with food. - polyethylene glycol 3350 (MIRALAX, GLYCOLAX) 17 gram/dose powder Take 17 g by mouth once daily. - apixaban (ELIQUIS) 5 mg tab(s) Take 1 tablet by mouth twice daily. - ondansetron orally disintegrating (ZOFRAN ODT) 4 mg disintegrating tablet Take 1 tablet by mouth every 8 hours as needed for nausea/vomiting. Problem List As Of Date 11/09/2022 Noted Resolved H/O protein C deficiency [Z86.2] H/O protein S deficiency [Z86.2] Migraines [G43.909] Malignant melanoma (HCC) [C43.9] History of DVT (deep vein thrombosis) [Z86.718] 10/04/2021 Hypothyroidism [E03.9] 04/26/2021 Neck pain [M54.2] 06/14/2022 Right leg pain [M79.604] 06/14/2022 Left leg pain [M79.605] 06/14/2022 Myofascial pain syndrome [M79.18] 06/14/2022 UTI symptoms [R39.9] 08/02/2022 Abdominal pain [R10.9] 10/20/2022 Visit Notes: >> RT Ezra(R) Wed Nov 09, 2022 3:11 PM Status: Signed 3 VIEW RIGHT HIP W/ PELVIS x-ray performed @ [facility] GENIA Munguia) Encounter Status:Closed by PRAVEEN LUGO on 11/09/22 [facility] CNOVon 11-09-2022 CNOV Office Visit ([facility] ) SUHA CALIX ([id number]) 1980 F Date Time Provider Department 11/09/22 2:20 PM MEDHAT DENNY [facility] During your visit today, we recorded the following information about you: Temperature Pulse Respiration Blood pressure 98.1 degrees 80/minute 20/minute 115/71 Weight Height 55.9 kg 1.651 m Medhat Denny MD 11/09/2022 3:46 PM Signed [facility] PROGRESS NOTE Encounter Date: 11/09/2022 Chief Complaint: Back Pain and Fatigue Back pain follow up - took medrol and on the last day of pills felt terribly sensitive skin, flushed skin; has never had this with medrol before, and on the last day too - it helped a little with back, still having trouble getting up on bed and moving leg out PO iron is causing terrible constipation; taking once a day and miralax and even with this has terribly painful PO Colonoscopy January 16 Can't gain weight even though she's drinking protein shakes and powder Review of Systems Constitutional: Positive for malaise/fatigue. Musculoskeletal: Positive for back pain and joint pain. Neurological: Positive for weakness. PAST MEDICAL HISTORY Diagnosis Date Anxiety and depression DVT (deep venous thrombosis) (HCC) GERD (gastroesophageal reflux disease) H/O protein C deficiency H/O protein S deficiency History of DVT (deep vein thrombosis) 10/04/2021 Hypothyroid Malignant melanoma (HCC) Melanoma (HCC) Migraines Other specified hypothyroidism 10/04/2021 ALLERGIES Allergen Reactions Latex Rash Penicillins Anaphylaxis Tape [Adhesive Tape* Rash Toradol [Ketorolac] Swelling Tongue swelling Current Outpatient Medications on File Prior to Visit Medication Sig methocarbamol (ROBAXIN) 500 mg tablet Take 1 tablet by mouth three times daily for 14 days. BIOTIN ORAL Take 1 capsule by mouth once daily. Insulin Syringe-Needle U-100 (BD INSULIN SYRINGE) 1 mL 25 x 1 syrg 1 Each one time a week for 9 doses. ferrous sulfate (IRON) 325 mg (65 mg iron) tablet Take 1 tablet by mouth twice daily with meals. cyanocobalamin 1,000 mcg/mL Once a week IM for 4 weeks, then once a month for 5 months dicyclomine (BENTYL) 20 mg tablet TAKE ONE TABLET THREE TIMES A DAY NEEDED FOR ABDOMINAL PAIN pantoprazole DR (PROTONIX) 40 mg tablet TAKE 1 TABLET BY MOUTH DAILY 30 MINUTES BEFORE A MEAL fluticasone (FLONASE) 50 mcg/actuation nasal spray USE 1 SPRAY IN EACH NOSTRIL ONCE DAILY topiramate (TOPAMAX) 100 mg tablet TAKE 1 TABLET BY MOUTH TWICE A DAY levothyroxine (SYNTHROID) 112 mcg tablet Take 1 tablet by mouth once daily. eletriptan (RELPAX) 20 mg tablet Take 1 tablet by mouth as needed for migraine headache (see administration instructions). may repeat in 2 hours if necessary acetaminophen (TYLENOL EXTRA STRENGTH) 500 mg tablet Take 2 tablets by mouth every 6 hours. ibuprofen (MOTRIN) 600 mg tablet Take 1 tablet by mouth every 6 hours. Take with food. polyethylene glycol 3350 (MIRALAX, GLYCOLAX) 17 gram/dose powder Take 17 g by mouth once daily. apixaban (ELIQUIS) 5 mg tab(s) Take 1 tablet by mouth twice daily. ondansetron orally disintegrating (ZOFRAN ODT) 4 mg disintegrating tablet Take 1 tablet by mouth every 8 hours as needed for nausea/vomiting. methylPREDNISolone (MEDROL) 4 mg 3 tablets with breakfast and 2 tablets with lunch x 7 days (Patient not taking: Reported on 11/09/2022) No current facility-administered medications on file prior to visit. Social History Tobacco Use Smoking status: Former Packs/day: 1.00 Years: 22.00 Pack years: 22.00 Types: Cigarettes Quit date: 03/23/2016 Years since quittin.6 Smokeless tobacco: Never Vaping Use Vaping Use: Never used Substance Use Topics Alcohol use: Not Currently Drug use: Never OBJECTIVE: Vital Signs: BP 115/71 (BP Site: Left Arm, BP Position: Sitting, BP Cuff Size: Regular Adult) Pulse 80 Temp 36.7 ?C (98.1 ?F) (Oral) Resp 20 Ht 165.1 cm (5' 5) Wt 55.9 kg (123 lb 3.2 oz) LMP 02/16/2022 BMI 20.50 kg/m? Physical Exam Vitals and nursing note reviewed. Constitutional: General: She is not in acute distress. Appearance: She is not toxic-appearing. Musculoskeletal: Lumbar back: Tenderness present. Positive right straight leg raise test. Negative left straight leg raise test. Right hip: Tenderness present. Decreased range of motion. Legs: Neurological: Mental Status: She is alert. ASSESSMENT/PLAN: 1. Right hip pain - ICD9: 719.45, ICD10: M25.551 (primary diagnosis) - check hip xray - XR HIP GENERAL 3V PELV/AP/LAT RIGHT 2. 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 Normal [facility] FC HIP UNILATERAL 2-3 VIEWSo n 11-09-2022 FC HIP UNILATERAL 2-3 VIEWS [place] [id number] Name: SUHA CALIX Phys: MEDHAT DENNY M.D. : [birth year] Age: 42 Sex: F Acct: [id number] Loc: [id number] Exam Date: 11/09/22 Status: REG POV Radiology No.: Unit Number: [id number] Exam # Type/Exam [id number] [facility] / FC HIP UNILATERAL 2-3 VIEWS RT EXAMINATION: 3 upright XRAY VIEWS OF THE RIGHT HIP 11/09/2022 3:18 pm COMPARISON: None. HISTORY: ORDERING SYSTEM PROVIDED HISTORY: TECHNOLOGIST PROVIDED HISTORY: Reason for Exam: PAIN FINDINGS: The hip demonstrates normal alignment. No evidence of acute fracture. No focal osseus lesion. Pelvis is intact. IMPRESSION: No acute abnormality of the hip. Electronically signed By Nirmal Paredes DO 11/09/2022 4:03:40 PM EST Workstation ID : [id number] < > Reported By: NIRMAL PAREDES D.O. Signed In Fluency By: NIRMAL PAREDES D.O. << Signature on File>> Reported By: NIRMAL PAREDES D.O. Signed By: NIRMAL PAREDES D.O. Tests performed at: [address] [address] Normal [facility] XR HIP 2-3 VIEWS ([place])on 0 11-09-2022 [facility] CNOVon 11-04-2022 CNOV Office Visit ([facility] ) SUHA CALIX ([id number]) 1980 F Date Time Provider Department 11/04/22 8:40 AM RAYMOND CARDENAS [facility] During your visit today, we recorded the following information about you: Temperature Pulse Blood pressure Weight 97.8 degrees 91/minute 106/70 55.3 kg Raymond Cardenas APRN.[employer]ICE TEAM MEMBER 11/04/2022 9:13 AM Signed Suha Calix is a 42 year old female here today acutely because of having: Pain Patient states a week ago she started having right lower back pain that radiates down into her right buttocks and down the front of her leg. Patient is able to lift the leg the forward and backwards but unable to abduct it away from the body. She denies any injury or repetitive motion that could cause the problem. Is taking ibuprofen even though she is on Eliquis and should not be taking. States the medication has not helped with the pain. Review of Systems Respiratory: Negative for cough, chest tightness, shortness of breath and wheezing. Cardiovascular: Negative for chest pain, palpitations and leg swelling. Gastrointestinal: Negative for abdominal pain, constipation and diarrhea. Genitourinary: Negative for difficulty urinating. Musculoskeletal: Positive for back pain. BP 106/70 Pulse 91 Temp 36.6 ?C (97.8 ?F) (Oral) Wt 55.3 kg (122 lb) LMP 02/16/2022 SpO2 100% BMI 20.30 kg/m? BMI 20.30 kg/(m2) ALLERGIES Allergen Reactions Latex Rash Penicillins Anaphylaxis Tape [Adhesive Tape* Rash Toradol [Ketorolac] Swelling Tongue swelling Physical Exam Constitutional: Appearance: Normal appearance. Cardiovascular: Rate and Rhythm: Normal rate and regular rhythm. Heart sounds: Normal heart sounds. No murmur heard. Pulmonary: Effort: Pulmonary effort is normal. No respiratory distress. Breath sounds: Normal breath sounds. No wheezing. Musculoskeletal: General: Tenderness (pain with palpation over right SI joint radiating down the right leg. unable to lift leg to the side.) present. Skin: General: Skin is warm and dry. Neurological: Mental Status: She is alert and oriented to person, place, and time. ASSESSMENT/PLAN: 1. Acute right-sided low back pain with right-sided sciatica - ICD9: 724.2, 724.3, ICD10: M54.41 - Ice for localized tenderness - Medrol dose pack - Muscle relaxant- see orders - METHYLPREDNISOLONE 4 MG TABLET - METHOCARBAMOL 500 MG TABLET Raymond Cardenas, DOLORES Follow Up: Return if symptoms worsen or fail to improve. Voice recognition software utilized. Minor grammatical and/or spelling errors may exist. Portions of this note have been entered by ancillary staff. I have reviewed and when necessary edited, so that they are an adequate record of my encounter with this patient. Referring Provider: SELF [200] Allergies As of Date: 11/04/2022 Noted Allergy Reaction LATEX 03/16/2021 2 - Rash PENICILLINS 03/16/2021 10 - Anaphylaxis TAPE (ADHESIVE TAPE-SILICONES) 06/15/2022 2 - Rash TORADOL (KETOROLAC) 03/16/2021 7 - Swelling Comments: Tongue swelling Date Reviewed: 11/04/2022 Reviewed by: Gladis Castillo - Fully Assessed Reason for Visit: Pain [78] Cmt: Patient hurt her back on her lower left side. She can be standing and feel like a throbbing and a sharp pain. This has been going on for a week. Primary Visit Diagnosis:Acute right-sided low back pain with right-sided sciatica [M54.41] Order(s):methylPREDNISolone (MEDROL) 4 mg3 tablets with breakfast and 2 tablets with lunch x 7 daysDisp: 35 tabletRfl: 0 methocarbamol (ROBAXIN) 500 mg tabletTake 1 tablet by mouth three times daily for 14 days.Disp: 42 tabletRfl: 0 Prescriptions as of 11/04/2022 - methylPREDNISolone (MEDROL) 4 mg 3 tablets with breakfast and 2 tablets with lunch x 7 days - methocarbamol (ROBAXIN) 500 mg tablet Take 1 tablet by mouth three times daily for 14 days. - BIOTIN ORAL Take 1 capsule by mouth once daily. - Insulin Syringe-Needle U-100 (BD INSULIN SYRINGE) 1 mL 25 x 1 syrg 1 Each one time a week for 9 doses. - ferrous sulfate (IRON) 325 mg (65 mg iron) tablet Take 1 tablet by mouth twice daily with meals. - cyanocobalamin 1,000 mcg/mL Once a week IM for 4 weeks, then once a month for 5 months - dicyclomine (BENTYL) 20 mg tablet TAKE ONE TABLET THREE TIMES A DAY NEEDED FOR ABDOMINAL PAIN - pantoprazole DR (PROTONIX) 40 mg tablet TAKE 1 TABLET BY MOUTH DAILY 30 MINUTES BEFORE A MEAL - fluticasone (FLONASE) 50 mcg/actuation nasal spray USE 1 SPRAY IN EACH NOSTRIL ONCE DAILY - topiramate (TOPAMAX) 100 mg tablet TAKE 1 TABLET BY MOUTH TWICE A DAY - levothyroxine (SYNTHROID) 112 mcg tablet Take 1 tablet by mouth once daily. - eletriptan (RELPAX) 20 mg tablet Take 1 tablet by mouth as needed for migraine headache (see administration instructions). may repeat in 2 hours if necessary - acetaminophen (TYLENOL EXTRA ST (more content not included)... Normal [facility] CNOVon 11-02-2022 CNOV Office Visit ([facility] ) JORGE CALIXHER CUNNINGHAM ([id number]) 1980 F Date Time Provider Department 11/02/22 8:30 AM FAB VINCENT During your visit today, we recorded the following information about you: Temperature Pulse Blood pressure Weight 98.2 degrees 104/minute 98/58 55.7 kg Height 1.651 m Fab Vincent PA-C 11/10/2022 2:52 PM Signed HISTORY AND PHYSICAL Suha Cunningham Fifi 1980 REFERRING PHYSICIAN: No ref. provider found CHIEF COMPLAINT: Consult (Colonoscopy consult) HPI: The patient is a 42 year old female referred for endoscopy. Suha notes a history of intermittent generalized abdominal pain and anemia. Pain varies in intensity from mild to severe and sometimes feels like spasms, often accompanied by multiple formed stools. Denies dark stools or blood mixed in stools. States pain seems worse with activity. Denies family history of colon issues Suha has not undergone prior endoscopy. She was seen by PCP for CT of abdomen and pelvis which showed no acute abdominal findings. Patient denies chest pain, shortness of breath or recent hospitalizations. Denies problems with sedation in the past. Past medical history significant for IBS and melanoma. She has a history of DVT and is on eliquis. PAST MEDICAL HISTORY Diagnosis Date Anxiety and depression DVT (deep venous thrombosis) (HCC) GERD (gastroesophageal reflux disease) H/O protein C deficiency H/O protein S deficiency History of DVT (deep vein thrombosis) 10/04/2021 Hypothyroid Malignant melanoma (HCC) Melanoma (HCC) Migraines Other specified hypothyroidism 10/04/2021 PAST SURGICAL HISTORY Procedure Laterality Date SECTION SINGLE 1997 ESOPHAGOGASTRODUODENOSCOPY TRANSORAL DIAGNOSTIC 03/23/2013 EGD HAND SURGERY HX Left trigger finger release 3 rd finger HYSTEROSCOPY, DIAGNOSTIC (SEPARATE 10/18/2021 IR IVC FILTER PLACEMENT 2010 MALIGNANT MELANOMA - WIDE EXCISION IN ANY AREA AND MUST INCLUDE > 1CM MARGINS AND LAYERED CLOSURE TONSILLECTOMY AND ADENOIDECTOMY VAGINAL HYSTERECTOMY 03/08/2022 total Current Outpatient Medications Medication Sig BIOTIN ORAL Take 1 capsule by mouth once daily. Insulin Syringe-Needle U-100 (BD INSULIN SYRINGE) 1 mL 25 x 1 syrg 1 Each one time a week for 9 doses. ferrous sulfate (IRON) 325 mg (65 mg iron) tablet Take 1 tablet by mouth twice daily with meals. cyanocobalamin 1,000 mcg/mL Once a week IM for 4 weeks, then once a month for 5 months dicyclomine (BENTYL) 20 mg tablet TAKE ONE TABLET THREE TIMES A DAY NEEDED FOR ABDOMINAL PAIN pantoprazole DR (PROTONIX) 40 mg tablet TAKE 1 TABLET BY MOUTH DAILY 30 MINUTES BEFORE A MEAL fluticasone (FLONASE) 50 mcg/actuation nasal spray USE 1 SPRAY IN EACH NOSTRIL ONCE DAILY tiZANidine (ZANAFLEX) 4 mg tablet TAKE 1 TABLET BY MOUTH THREE TIMES A DAY NEEDED FOR PAIN topiramate (TOPAMAX) 100 mg tablet TAKE 1 TABLET BY MOUTH TWICE A DAY levothyroxine (SYNTHROID) 112 mcg tablet Take 1 tablet by mouth once daily. eletriptan (RELPAX) 20 mg tablet Take 1 tablet by mouth as needed for migraine headache (see administration instructions). may repeat in 2 hours if necessary acetaminophen (TYLENOL EXTRA STRENGTH) 500 mg tablet Take 2 tablets by mouth every 6 hours. ibuprofen (MOTRIN) 600 mg tablet Take 1 tablet by mouth every 6 hours. Take with food. polyethylene glycol 3350 (MIRALAX, GLYCOLAX) 17 gram/dose powder Take 17 g by mouth once daily. apixaban (ELIQUIS) 5 mg tab(s) Take 1 tablet by mouth twice daily. ondansetron orally disintegrating (ZOFRAN ODT) 4 mg disintegrating tablet Take 1 tablet by mouth every 8 hours as needed for nausea/vomiting. No current facility-administered medications for this visit. ALLERGIES: Latex, Penicillins, Tape [Adhesive Tape-Silicones], and Toradol [Ketorolac] PERSONAL HISTORY: Social History Tobacco Use Smoking status: Former Packs/day: 1.00 Years: 22.00 Pack years: 22.00 Types: Cigarettes Quit date: 03/23/2016 Years since quittin.6 Smokeless tobacco: Never Vaping Use Vaping Use: Never used Substance Use Topics Alcohol use: Not Currently Drug use: Never FAMILY HISTORY: FAMILY HISTORY Problem Relation Age of Onset Clotting Disorder Father Protein C and S deficiency No Known Problems Mother Clotting Disorder Paternal Grandfather Anesthesia Problems No Family History REVIEW OF SYMPTOMS: The review of systems data was entered by the nurse and reviewed by tn Nursing Notes: Dee Pratt RN 11/02/2022 9:55 AM Signed REVIEW OF SYSTEMS: General: The patient NOTES fatigue, NOTES weight loss, denies weight gain, denies feeling hot, and NOTES feelings of cold. Eyes: The patient denies glaucoma, denies eye injury/surgery, wears glasses or contacts. Ear/Nose/Throat: The patient NOTES allergies, denies hayfever, denies ear in (more content not included)... [facility][id number]) 1980 F Date Time Provider Department 10/28/22 MEDHAT DENNY [facility] During your visit today, we recorded the following information about you: Tati Enciso 10/28/2022 9:03 AM Signed Suha got an order for Vitamin B-12 but no syringes were called in so she cannot use the medication. Can an order for syringes be sent to [facility]? Medhat Denny MD 10/31/2022 6:49 AM Signed Syringes sent MD Libby Estrada MA 10/31/2022 3:06 PM Signed Patient was informed and had no questions Allergies As of Date: 10/28/2022 Noted Allergy Reaction LATEX 03/16/2021 2 - Rash PENICILLINS 03/16/2021 10 - Anaphylaxis TAPE (ADHESIVE TAPE-SILICONES) 06/15/2022 2 - Rash TORADOL (KETOROLAC) 03/16/2021 7 - Swelling Comments: Tongue swelling Date Reviewed: 10/21/2022 Reviewed by: Olamide Mcneill MA - Fully Assessed Reason for Visit: Orders [681] Primary Visit Diagnosis:Vitamin B12 deficiency [E53.8] Order(s):Insulin Syringe-Needle U-100 (BD INSULIN SYRINGE) 1 mL 25 x 1 syrg1 Each one time a week for 9 doses.Disp: 9 EachRfl: 0 Prescriptions as of 10/31/2022 - Insulin Syringe-Needle U-100 (BD INSULIN SYRINGE) 1 mL 25 x 1 syrg 1 Each one time a week for 9 doses. - ferrous sulfate (IRON) 325 mg (65 mg iron) tablet Take 1 tablet by mouth twice daily with meals. - cyanocobalamin 1,000 mcg/mL Once a week IM for 4 weeks, then once a month for 5 months - dicyclomine (BENTYL) 20 mg tablet TAKE ONE TABLET THREE TIMES A DAY NEEDED FOR ABDOMINAL PAIN - doxycycline monohydrate (MONODOX) 100 mg capsule Take 1 capsule by mouth twice daily for 10 days. - pantoprazole DR (PROTONIX) 40 mg tablet TAKE 1 TABLET BY MOUTH DAILY 30 MINUTES BEFORE A MEAL - fluticasone (FLONASE) 50 mcg/actuation nasal spray USE 1 SPRAY IN EACH NOSTRIL ONCE DAILY - tiZANidine (ZANAFLEX) 4 mg tablet TAKE 1 TABLET BY MOUTH THREE TIMES A DAY NEEDED FOR PAIN - topiramate (TOPAMAX) 100 mg tablet TAKE 1 TABLET BY MOUTH TWICE A DAY - levothyroxine (SYNTHROID) 112 mcg tablet Take 1 tablet by mouth once daily. - eletriptan (RELPAX) 20 mg tablet Take 1 tablet by mouth as needed for migraine headache (see administration instructions). may repeat in 2 hours if necessary - acetaminophen (TYLENOL EXTRA STRENGTH) 500 mg tablet Take 2 tablets by mouth every 6 hours. - ibuprofen (MOTRIN) 600 mg tablet Take 1 tablet by mouth every 6 hours. Take with food. - polyethylene glycol 3350 (MIRALAX, GLYCOLAX) 17 gram/dose powder Take 17 g by mouth once daily. - apixaban (ELIQUIS) 5 mg tab(s) Take 1 tablet by mouth twice daily. - ondansetron orally disintegrating (ZOFRAN ODT) 4 mg disintegrating tablet Take 1 tablet by mouth every 8 hours as needed for nausea/vomiting. Problem List As Of Date 10/28/2022 Noted Resolved H/O protein C deficiency [Z86.2] H/O protein S deficiency [Z86.2] Migraines [G43.909] Malignant melanoma (HCC) [C43.9] History of DVT (deep vein thrombosis) [Z86.718] 10/04/2021 Hypothyroidism [E03.9] 04/26/2021 Neck pain [M54.2] 06/14/2022 Right leg pain [M79.604] 06/14/2022 Left leg pain [M79.605] 06/14/2022 Myofascial pain syndrome [M79.18] 06/14/2022 UTI symptoms [R39.9] 08/02/2022 Abdominal pain [R10.9] 10/20/2022 Prescriptions ordered this encounter Disp Refills Start End BD INSULIN SYRINGE 1 ML 25 X 1 9 Ea* 0 10/31/2022 12/27/2022 Route: Misc Si Each one time a week for 9 doses. Encounter Status:Closed by POLI GONZALEZ on 10/31/22 [facility] Laith 10-25-2022 [facility] Telephone ([facility]) SUHA CALIX ([id number]) 1980 F Date Time Provider Department 10/25/22 BEBETO SOLIMAN [facility] During your visit today, we recorded the following information about you: Meseret Flores MA 10/25/2022 1:20 PM Signed ----- Message from Poli Gonzalez MA sent at 10/25/2022 8:36 AM EST ----- ----- Message ----- From: Bebeto Soliman APRN.PREPARED [employer] SERVICE TEAM MEMBER Sent: 10/22/2022 12:12 PM EST To: [facility] Let patient know her thyroid level is normal. Her iron level is very low which is causing her anemia. Vitamin B12 also on low side. I am starting her on iron she will take twice a day with food-will cause constipation so she will need to take a daily stool softener or miralax daily. I want her to do vitamin B12 injections once a week for 1 month, then just once a month after that. Repeat labs in 6 weeks. All ordered. Meseret Flores MA 10/25/2022 1:25 PM Signed Mailbox is full. Will send mychart. Allergies As of Date: 10/25/2022 Noted Allergy Reaction LATEX 03/16/2021 2 - Rash PENICILLINS 03/16/2021 10 - Anaphylaxis TAPE (ADHESIVE TAPE-SILICONES) 06/15/2022 2 - Rash TORADOL (KETOROLAC) 03/16/2021 7 - Swelling Comments: Tongue swelling Date Reviewed: 10/21/2022 Reviewed by: Olamide Mcneill MA - Fully Assessed Reason for Visit: Results [95] Prescriptions as of 10/26/2022 - ferrous sulfate (IRON) 325 mg (65 mg iron) tablet Take 1 tablet by mouth twice daily with meals. - cyanocobalamin 1,000 mcg/mL Once a week IM for 4 weeks, then once a month for 5 months - dicyclomine (BENTYL) 20 mg tablet TAKE ONE TABLET THREE TIMES A DAY NEEDED FOR ABDOMINAL PAIN - doxycycline monohydrate (MONODOX) 100 mg capsule Take 1 capsule by mouth twice daily for 10 days. - pantoprazole DR (PROTONIX) 40 mg tablet TAKE 1 TABLET BY MOUTH DAILY 30 MINUTES BEFORE A MEAL - fluticasone (FLONASE) 50 mcg/actuation nasal spray USE 1 SPRAY IN EACH NOSTRIL ONCE DAILY - tiZANidine (ZANAFLEX) 4 mg tablet TAKE 1 TABLET BY MOUTH THREE TIMES A DAY NEEDED FOR PAIN - topiramate (TOPAMAX) 100 mg tablet TAKE 1 TABLET BY MOUTH TWICE A DAY - levothyroxine (SYNTHROID) 112 mcg tablet Take 1 tablet by mouth once daily. - eletriptan (RELPAX) 20 mg tablet Take 1 tablet by mouth as needed for migraine headache (see administration instructions). may repeat in 2 hours if necessary - acetaminophen (TYLENOL EXTRA STRENGTH) 500 mg tablet Take 2 tablets by mouth every 6 hours. - ibuprofen (MOTRIN) 600 mg tablet Take 1 tablet by mouth every 6 hours. Take with food. - polyethylene glycol 3350 (MIRALAX, GLYCOLAX) 17 gram/dose powder Take 17 g by mouth once daily. - apixaban (ELIQUIS) 5 mg tab(s) Take 1 tablet by mouth twice daily. - ondansetron orally disintegrating (ZOFRAN ODT) 4 mg disintegrating tablet Take 1 tablet by mouth every 8 hours as needed for nausea/vomiting. Problem List As Of Date 10/25/2022 Noted Resolved H/O protein C deficiency [Z86.2] H/O protein S deficiency [Z86.2] Migraines [G43.909] Malignant melanoma (HCC) [C43.9] History of DVT (deep vein thrombosis) [Z86.718] 10/04/2021 Hypothyroidism [E03.9] 04/26/2021 Neck pain [M54.2] 06/14/2022 Right leg pain [M79.604] 06/14/2022 Left leg pain [M79.605] 06/14/2022 Myofascial pain syndrome [M79.18] 06/14/2022 UTI symptoms [R39.9] 08/02/2022 Abdominal pain [R10.9] 10/20/2022 Letter Text Encounter Status:Closed by MESERET FLORES on 10/26/22 Normal [facility] AMYLASEon 10-21-2022 Amylase [Catalytic activity/Vol] 85 U/L Normal 28-100 [facility] Comment on above: Performed By: #### L 304.0140, L100.0350, L304.0200, L100.0340, L100.0005, L304.0240 #### ML - [facility] [address] [place] [address] CBCon 10-21-2022 BASO# 0.00 x10(3) Normal 0.00-0.10 [facility] Comment on above: Performed By: #### L 801.4500 #### [place] [address] Basophils/100 WBC (Bld) 0.3 % Normal 0.0-1.0 [facility] Comment on above: Performed By: #### L 801.4500 #### [place] [address] EOS# 0.20 x10(3) Normal 0.00-0.54 [facility] Comment on above: Performed By: #### L 801.4500 #### [place] [address] Eosinophils/100 WBC (Bld) 2.5 % Normal 0.5-4.9 [facility] Comment on above: Performed By: #### L 801.4500 #### [place] [address] Erythrocyte distribution width (RBC) [Ratio] 15.1 % Normal 12.5-15.7 [facility] Comment on above: Performed By: #### L 801.4500 #### [place] [address] Hematocrit (Bld) [Volume fraction] 32.8 % Low 36.0-48.0 [facility] Comment on above: Performed By: #### L 801.4500 #### [place] [address] Hemoglobin (Bld) [Mass/Vol] 10.3 g/dL Low 12.0-16.0 [facility] Comment on above: Performed By: #### L 801.4500 #### [place] [address] LYMPH# 1.10 x10(3) Normal 1.00-3.50 [facility] Comment on above: Performed By: #### L 801.4500 #### [place] [address] Lymphocytes/100 WBC (Bld) 17.4 % Normal 16.0-48.0 [facility] Comment on above: Performed By: #### L 801.4500 #### [place] [address] MCH (RBC) [Entitic mass] 24.2 pg Low 28.5-32.9 [facility] Comment on above: Performed By: #### L 801.4500 #### [place] [address] MCHC (RBC) [Mass/Vol] 31.3 g/dL Low 33.0-36.0 [facility] Comment on above: Performed By: #### L 801.4500 #### [place] [address] MCV (RBC) [Entitic vol] 77.1 fL Low 80.0-99.0 [facility] Comment on above: Performed By: #### L 801.4500 #### [place] [address] MONO# 0.60 x10(3) Normal 0.30-0.80 [facility] Comment on above: Performed By: #### L 801.4500 #### [place] [address] Monocytes/100 WBC (Bld) 8.8 % Normal 4.3-11.2 [facility] Comment on above: Performed By: #### L 801.4500 #### [place] [address] NEUT# 4.60 x10(3) Normal 1.40-6.50 [facility] Comment on above: Performed By: #### L 801.4500 #### [place] [address] Neutrophils/100 WBC (Bld) 71.0 % Normal 45.0-73.0 [facility] Comment on above: Performed By: #### L 801.4500 #### [place] [address] Platelet mean volume (Bld) [Entitic vol] 8.0 fL Normal 7.5-9.5 [facility] Comment on above: Performed By: #### L 801.4500 #### [place] [address] PLT 283 X10(3) Normal 150-450 [facility] Comment on above: Performed By: #### L 801.4500 #### [place] [address] RBC 4.25 x10(6) Normal 3.30-5.00 [facility] Comment on above: Performed By: #### L 801.4500 #### [place] [address] WBC 6.4 x10(3) Normal 4.5-10.0 [facility] Comment on above: Performed By: #### L 801.4500 #### [place] [address] CMPon 10-21-2022 A:G RATIO 2.75 High 1.1-2.5 [facility] Comment on above: Performed By: #### L 304.0140, L100.0350, L304.0200, L100.0340, L100.0005, L304.0240 #### [facility] [address] [place] [address] Albumin [Mass/Vol] 4.4 g/dL Normal 3.5-5.2 [facility] Comment on above: Performed By: #### L 304.0140, L100.0350, L304.0200, L100.0340, L100.0005, L304.0240 #### [facility] [address] [place] [address] ALK. PHOS 59 U/L Normal 35-105 [facility] Comment on above: Performed By: #### L 304.0140, L100.0350, L304.0200, L100.0340, L100.0005, L304.0240 #### [facility] [address] [place] [address] ALT [Catalytic activity/Vol] 9 U/L Normal 5-33 [facility] Comment on above: Performed By: #### L 304.0140, L100.0350, L304.0200, L100.0340, L100.0005, L304.0240 #### [facility] [address] [place] [address] Anion gap [Moles/Vol] 18.1 mmol/L Normal 15-22 [facility] Comment on above: Performed By: #### L 304.0140, L100.0350, L304.0200, L100.0340, L100.0005, L304.0240 #### [facility] [address] [place] [address] AST [Catalytic activity/Vol] 13 U/L Normal 5-32 [facility] Comment on above: Performed By: #### L 304.0140, L100.0350, L304.0200, L100.0340, L100.0005, L304.0240 #### ML - [facility] [address] [place] [address] Bilirubin [Mass/Vol] mg/dL Normal 0.2-1.2 [facility] Comment on above: Performed By: #### L 304.0140, L100.0350, L304.0200, L100.0340, L100.0005, L304.0240 #### ML - LAB[facility]ATORY [address] [place] [address] Calcium [Mass/Vol] 9.4 mg/dL Normal 8.6-10.0 [facility] Comment on above: Performed By: #### L 304.0140, L100.0350, L304.0200, L100.0340, L100.0005, L304.0240 #### ML - [facility] [address] [place] [address] Chloride [Moles/Vol] 108 mmol/L High 98-107 [facility] Comment on above: Performed By: #### L 304.0140, L100.0350, L304.0200, L100.0340, L100.0005, L304.0240 #### - LABORATORY [address] [place] [address] CO2 [Moles/Vol] 20 mmol/L Low 22-29 [facility] Comment on above: Performed By: #### L 304.0140, L100.0350, L304.0200, L100.0340, L100.0005, L304.0240 #### ML - [facility] [address] [place] [address] Creatinine [Mass/Vol] 0.85 mg/dL Normal 0.50-0.90 [facility] Comment on above: Performed By: #### L 304.0140, L100.0350, L304.0200, L100.0340, L100.0005, L304.0240 #### ML - [facility] [address] [place] [address] eGFR if AFR SARITHA > 60 ml/min/1.73m2 Normal [facility] Comment on above: Result Comment: eGFR >= 60 Indicates normal kidney function. * eGFR IS AN ESTIMATE * (AFR SARITHA = ) (non-AFR AM = NON-) MDRD calculation used in the eGFR should not be used to dose medications. For further limitations of the eGFR please refer to the Physician Website or the National Kidney Disease Education Program website (www.nkdep.nih.gov). Performed By: #### L 304.0140, L100.0350, L304.0200, L100.0340, L100.0005, L304.0240 #### [facility] [address] [place] [address] eGFR nonAFR Saritha > 60 ml/Min/1.73m2 Normal [facility] Comment on above: Performed By: #### L 304.0140, L100.0350, L304.0200, L100.0340, L100.0005, L304.0240 #### [facility] [address] [place] [address] Globulin (S) [Mass/Vol] 1.6 g/dL Normal 1.5-4.5 [facility] Comment on above: Performed By: #### L 304.0140, L100.0350, L304.0200, L100.0340, L100.0005, L304.0240 #### [facility] [address] [place] [address] Glucose [Mass/Vol] 89 mg/dL Normal 74-106 [facility] Comment on above: Performed By: #### L 304.0140, L100.0350, L304.0200, L100.0340, L100.0005, L304.0240 #### [facility] [address] [place] [address] Potassium [Moles/Vol] 4.1 mmol/L Normal 3.5-5.0 [facility] Comment on above: Performed By: #### L 304.0140, L100.0350, L304.0200, L100.0340, L100.0005, L304.0240 #### - LABORATORY [address] [place] [address] Protein [Mass/Vol] 6.0 g/dL Low 6.4-8.3 [facility] Comment on above: Performed By: #### L 304.0140, L100.0350, L304.0200, L100.0340, L100.0005, L304.0240 #### ML - [facility] [address] [place] [address] Sodium [Moles/Vol] 142 mmol/L Normal 135-145 [facility] Comment on above: Performed By: #### L 304.0140, L100.0350, L304.0200, L100.0340, L100.0005, L304.0240 #### ML - [facility]ATORY [address] [place] [address] Urea nitrogen [Mass/Vol] 13 mg/dL Normal 6-20 [facility] Comment on above: Performed By: #### L 304.0140, L100.0350, L304.0200, L100.0340, L100.0005, L304.0240 #### - LABORATORY [address] [place] [address] Sherry 10-21-2022 CNOV Office Visit ([facility] ) SUHA CALIX ([id number]) 1980 F Date Time Provider Department 10/21/22 1:40 PM BEBETO SOLIMAN [facility] During your visit today, we recorded the following information about you: Pulse Blood pressure Weight Height 89/minute 107/71 56.1 kg 1.651 m Bebeto Soliman APRN.[employer]ED [employer] SERVICE TEAM MEMBER 10/21/2022 2:13 PM Addendum Suha Calix is a 42 year old female who presents Patient presents with: ER F/U: Er follow up from [facility] on 10/18 for abdominal pain, loose stools. She states pain is better but still there some. They did give her a medication. They has did a CT results in chart. Overview Notes of Problems Addressed This Visit Gastrointestinal Abdominal pain - Primary Patient presented to [facility] ER on 10/18/2022 with complaints of generalized abdominal pain, softer but formed stools, and nausea. UA was normal. Lipase level a little elevated at 88, and microcytic anemia. She is on eliquis for history of DVT left leg. CT abd/pel showed moderate sigmoid diverticulosis without complication. No acute surgical finding. She was discharged home on zofran and bentyl. Patient states the medications do seem to help symptoms temporarily. Still having sharp stabbing pains and nausea. Also is now constipated. No vomiting or diarrhea. No weakness, fatigue, or blood in stool. States she does have a history of blood in her stool when she first started the eliquis, but none now. Has never had a colonoscopy. States she has a sinus infection: purulent drainage, facial pressure. Has been doing sinus rinses at home without relief. Onset 1 week. Relevant Orders AMYLASE BLD LIPASE BLD COMP METABOLIC PANEL CONSULT TO GASTROENTEROLOGY Other Visit Diagnoses Microcytic anemia Relevant Orders IRON + TIBC FERRITIN BLD VITAMIN B12 BLOOD FOLATE SERUM CBC + DIFF CONSULT TO GASTROENTEROLOGY Elevated lipase Relevant Orders AMYLASE BLD LIPASE BLD Bacterial sinusitis Fatigue, unspecified type Relevant Orders TSH BLD Review of Systems General: Denies fatigue, fever, weight changes Skin: Denies rashes, itching, lesions HEENT: positive sinus congestion and pressure Respiratory: Denies cough, wheezing, SOB Cardiovascular: Denies chest pain, edema, heart palpitations Gastrointestinal: See HPI Musculoskeletal: Denies joint pain, joint swelling, or muscle pain Neurological: Denies dizziness, confusion, vision changes, headache Endocrine: Denies cold intolerance, excessive sweating, excessive thirst, excessive urination, hair changes BP 107/71 Pulse 89 Ht 5' 5 (1.65m) Wt 123 lb 9.6 oz (56.1kg) SpO2 100% LMP 02/16/2022 BMI 20.57 kg/(m2). Physical Exam General: Cooperative, no acute distress, alert, well nourished, well developed. Integumentary: No rashes, color normal, normal moisture. Head and Neck: No lymphadenopathy, neck supple, no thyroid enlargement or nodules, non-tender. HEENT: nasal mucosa red and inflamed with purulent drainage. Positive for maxillary and frontal sinus pressure. Chest and Lungs: Respirations easy and non-labored. No use of accessory muscles. Auscultation reveals clear lung sounds: no wheezes, rhonchi, or crackles Cardiovascular: Normal heart sounds, regular rate and rhythm, no murmurs. No carotid bruit bilaterally. Abdomen: Inspection normal. Palpation: soft, non-tender. No rebound tenderness, rigidity, or guarding. No masses. No hepatosplenomegaly. Auscultation reveals normal bowel sounds in all 4 quadrants. Peripheral Vascular: Inspection to bilateral lower extremities normal. Palpation: bilateral posterior tibial pulses 2+. Temperature normal. No edema bilaterally. ASSESSMENT/PLAN: 1. Abdominal pain, unspecified abdominal location - ICD9: 789.00, ICD10: R10.9 (primary diagnosis) Refer to GI for colonoscopy - AMYLASE BLD - LIPASE BLD - COMP METABOLIC PANEL - CONSULT TO GASTROENTEROLOGY 2. Microcytic anemia - ICD9: 280.9, ICD10: D50.9 Labs today - IRON + TIBC - FERRITIN BLD - VITAMIN B12 BLOOD - FOLATE SERUM - CBC + DIFF - CONSULT TO GASTROENTEROLOGY 3. Elevated lipase - ICD9: 790.5, ICD10: R74.8 - AMYLASE BLD - LIPASE BLD 4. Bacterial sinusitis - ICD9: 473.9, 041.9, ICD10: J32.9, B96.89 Instructed to increase fluid intake, warm salt water gargles, rest, mucinex OTC, probiotic or 2 activia yogurts daily while on antibiotic, tylenol/ibuprofen for fever/pain. Educated on new prescriptions. Patient verbalizes understanding of discharge instructions, and in agreement with treatment plan. Agrees to call the office if symptoms do not improve or they worsen. 5. Fatigue, unspecified type - ICD9: 780.79, ICD10: R53.83 - TSH BLD Bebeto L Soliman I reviewed her past medical, surgical, social, and family histories today and updated chart. Allergies, chronic medications, and supplements were also reviewed (more content not included)... Normal [facility] Laith 10-21-2022 [facility] SUHA CALIX ([id number]) 1980 F Date Time Provider Department 10/21/22 BEBETO SOLIMAN [facility] During your visit today, we recorded the following information about you: Antoinette Payne 10/21/2022 2:09 PM Signed Waiting on office notes to be signed to do referral Antoinette Payne 10/25/2022 9:24 AM Signed Faxed referral, demographics, office notes to [facility]. Patient advised that office will call to schedule appointment. Antoinette Payne Allergies As of Date: 10/21/2022 Noted Allergy Reaction LATEX 03/16/2021 2 - Rash PENICILLINS 03/16/2021 10 - Anaphylaxis TAPE (ADHESIVE TAPE-SILICONES) 06/15/2022 2 - Rash TORADOL (KETOROLAC) 03/16/2021 7 - Swelling Comments: Tongue swelling Date Reviewed: 10/21/2022 Reviewed by: Olamide Mcneill MA - Fully Assessed Reason for Visit: Internal Referrals/resources [908] Cmt: Gastroenterology Prescriptions as of 10/25/2022 - ferrous sulfate (IRON) 325 mg (65 mg iron) tablet Take 1 tablet by mouth twice daily with meals. - cyanocobalamin 1,000 mcg/mL Once a week IM for 4 weeks, then once a month for 5 months - dicyclomine (BENTYL) 20 mg tablet TAKE ONE TABLET THREE TIMES A DAY NEEDED FOR ABDOMINAL PAIN - doxycycline monohydrate (MONODOX) 100 mg capsule Take 1 capsule by mouth twice daily for 10 days. - pantoprazole DR (PROTONIX) 40 mg tablet TAKE 1 TABLET BY MOUTH DAILY 30 MINUTES BEFORE A MEAL - fluticasone (FLONASE) 50 mcg/actuation nasal spray USE 1 SPRAY IN EACH NOSTRIL ONCE DAILY - tiZANidine (ZANAFLEX) 4 mg tablet TAKE 1 TABLET BY MOUTH THREE TIMES A DAY NEEDED FOR PAIN - topiramate (TOPAMAX) 100 mg tablet TAKE 1 TABLET BY MOUTH TWICE A DAY - levothyroxine (SYNTHROID) 112 mcg tablet Take 1 tablet by mouth once daily. - eletriptan (RELPAX) 20 mg tablet Take 1 tablet by mouth as needed for migraine headache (see administration instructions). may repeat in 2 hours if necessary - acetaminophen (TYLENOL EXTRA STRENGTH) 500 mg tablet Take 2 tablets by mouth every 6 hours. - ibuprofen (MOTRIN) 600 mg tablet Take 1 tablet by mouth every 6 hours. Take with food. - polyethylene glycol 3350 (MIRALAX, GLYCOLAX) 17 gram/dose powder Take 17 g by mouth once daily. - apixaban (ELIQUIS) 5 mg tab(s) Take 1 tablet by mouth twice daily. - ondansetron orally disintegrating (ZOFRAN ODT) 4 mg disintegrating tablet Take 1 tablet by mouth every 8 hours as needed for nausea/vomiting. Problem List As Of Date 10/21/2022 Noted Resolved H/O protein C deficiency [Z86.2] H/O protein S deficiency [Z86.2] Migraines [G43.909] Malignant melanoma (HCC) [C43.9] History of DVT (deep vein thrombosis) [Z86.718] 10/04/2021 Hypothyroidism [E03.9] 04/26/2021 Neck pain [M54.2] 06/14/2022 Right leg pain [M79.604] 06/14/2022 Left leg pain [M79.605] 06/14/2022 Myofascial pain syndrome [M79.18] 06/14/2022 UTI symptoms [R39.9] 08/02/2022 Abdominal pain [R10.9] 10/20/2022 Encounter Status:Closed by ANTOINETTE PAYNE on 10/21/22 Normal [facility] FERRITINon 10-21-2022 Ferritin [Mass/Vol] 5.0 ng/mL Low 13-150 [facility] Comment on above: Performed By: #### L 801.4500 #### [place] [address] FOLATEon 10-21-2022 FOLATE 12.0 ng/mL Normal 4.8-24.2 [facility] Comment on above: Performed By: #### L 304.0210 #### ML - LABORATORY [address] [place] [address] IRON & TIBCon 10-21-2022 % FE. SAT. 3 % Low 10-32 [facility] Comment on above: Performed By: #### L 100.0400 #### ML - LABORATORY [address] [place] [address] Iron [Mass/Vol] 17 ug/dL Low 37-145 [facility] Comment on above: Performed By: #### L 100.0400 #### ML - LABORATORY [address] [place] [address] TIBC 456 mg/dL Normal 269-535 [facility] Comment on above: Performed By: #### L 100.0400 #### ML - LABORATORY [address] [place] [address] Transferrin [Mass/Vol] 326 mg/dL Normal 200-360 [facility] Comment on above: Performed By: #### L 100.0400 #### ML - LABORATORY [address] [place] [address] LIPASEon 10-21-2022 Lipase [Catalytic activity/Vol] 89 U/L High 13-60 [facility] Comment on above: Performed By: #### L 801.4500 #### [place] [address] TSHon 10-21-2022 TSH 0.44 uIU/mL Normal 0.270-4.20 0 [facility] Comment on above: Performed By: #### L 801.4500 #### [place] [address] VIT. B12on 10-21-2022 Cobalamin (Vitamin B12) [Mass/Vol] 366.6 pg/mL Normal 232-1245 [facility] Comment on above: Performed By: #### L 801.4500 #### [place] [address] CNPNon 10-19-2022 CNPN Telephone ([facility]) FIFISUHA ([id number]) 1980 F Date Time Provider Department 10/19/22 NOA SILVA FMUP During your visit today, we recorded the following information about you: Noa Silva RN 10/19/2022 3:22 PM Signed Called to complete ER follow up but patient did not answer and VM is full. Unable to leave a message this date. Patient had an ER visit at [facility] on 10/18/22 for abdominal pain and loose stoola. SHERRI Yanes RN 10/19/2022 3:41 PM Signed [facility] EM[facility]Y DEPARTMENT FOLLOW UP INITIAL CONTACT Initial contact with patient post discharge, spoke to patient. Patient identified by name and date : YES SUMMARY: -Patient discharged from [facility] ED on 10/18/22. -Follow up appointment on 10/21/22 with Bebeto Soliman (neal'ashish with Rex Klein RN). -Medication review done yes. -Presented with: abdominal pain, loose stools, known IBS CONCERNS: Spoke with patient and she states she continued to have sharp stabbing pain in her abdomen associated with persistent soft/formed stools. Patient states the Bentyl given in ER does help with the pain and she is able to keep down food and liquids. Patient endorses some nausea and states Zofran prescribed in ER does help alleviate. Patient requesting an in office follow up to discuss symptoms further with provider. Patient states she is aware of signs/symptoms of dehydration and when to seek urgent medical attention. NEW MEDICATIONS: Bentyl, Zofran MEDS HELD/DISCONTINUED: none BRIEF ED COURSE: CBC, BMP, Lipase, LFT's, CT of abdomen and pelvis, Morphine and Zofran give. Bentyl and Zofran prescribed. Noa Silva RN Allergies As of Date: 10/19/2022 Noted Allergy Reaction LATEX 03/16/2021 2 - Rash PENICILLINS 03/16/2021 10 - Anaphylaxis TAPE (ADHESIVE TAPE-SILICONES) 06/15/2022 2 - Rash TORADOL (KETOROLAC) 03/16/2021 7 - Swelling Comments: Tongue swelling Date Reviewed: 06/15/2022 Reviewed by: Madison Denny PA-C - Fully Assessed Reason for Visit: ER F/U [41] Prescriptions as of 10/19/2022 - pantoprazole DR (PROTONIX) 40 mg tablet TAKE 1 TABLET BY MOUTH DAILY 30 MINUTES BEFORE A MEAL - fluticasone (FLONASE) 50 mcg/actuation nasal spray USE 1 SPRAY IN EACH NOSTRIL ONCE DAILY - tiZANidine (ZANAFLEX) 4 mg tablet TAKE 1 TABLET BY MOUTH THREE TIMES A DAY NEEDED FOR PAIN - nitrofurantoin monohydrate and macrocrystal (MACROBID) 100 mg capsule Take 1 capsule by mouth twice daily. - topiramate (TOPAMAX) 100 mg tablet TAKE 1 TABLET BY MOUTH TWICE A DAY - levothyroxine (SYNTHROID) 112 mcg tablet Take 1 tablet by mouth once daily. - eletriptan (RELPAX) 20 mg tablet Take 1 tablet by mouth as needed for migraine headache (see administration instructions). may repeat in 2 hours if necessary - acetaminophen (TYLENOL EXTRA STRENGTH) 500 mg tablet Take 2 tablets by mouth every 6 hours. - ibuprofen (MOTRIN) 600 mg tablet Take 1 tablet by mouth every 6 hours. Take with food. - polyethylene glycol 3350 (MIRALAX, GLYCOLAX) 17 gram/dose powder Take 17 g by mouth once daily. - apixaban (ELIQUIS) 5 mg tab(s) Take 1 tablet by mouth twice daily. - ondansetron orally disintegrating (ZOFRAN ODT) 4 mg disintegrating tablet Take 1 tablet by mouth every 8 hours as needed for nausea/vomiting. Problem List As Of Date 10/19/2022 Noted Resolved H/O protein C deficiency [Z86.2] H/O protein S deficiency [Z86.2] Migraines [G43.909] Malignant melanoma (HCC) [C43.9] History of DVT (deep vein thrombosis) [Z86.718] 10/04/2021 Hypothyroidism [E03.9] 04/26/2021 Neck pain [M54.2] 06/14/2022 Right leg pain [M79.604] 06/14/2022 Left leg pain [M79.605] 06/14/2022 Myofascial pain syndrome [M79.18] 06/14/2022 UTI symptoms [R39.9] 08/02/2022 Encounter Status:Closed by NOA SILVA on 10/19/22 Normal [facility] EMERGENCY DEPARTMENT REPORTo n 10-19-2022 [place]ER[place] [address] HEALTH INFORMATION MANAGEMENT EMERGENCY DEPARTMENT REPORT Patient: SUHA CALIXMEMO Atkinson D.O. [id number] [age] F Status: DEP ER ED Date of Service: 10/18/22 CHIEF COMPLAINT: Abdominal pain and loose stools. ALLERGIES: Penicillin, Toradol, and latex. SOCIAL HISTORY: No alcohol, illicit drugs, or tobacco use. PAST SURGICAL HISTORY: Hysterectomy. PAST MEDICAL HISTORY: Significant for irritable bowel syndrome. FAMILY HISTORY: Noncontributory. HISTORY OF PRESENT ILLNESS: The patient is a 42-year-old female presenting to emergency department with chief complaint of abdominal pain and loose stools. The patient states that this started a few days ago. She took some Mag citrate to see if that would help with her symptoms. She states her stools are still formed but loose and infrequent. The patient states she does have history of IBS, does not see gastroenterology. Does not take any medications for it at home. She denies any fevers. She denies any urinary symptoms. She denies any vaginal bleeding. She has no other associated symptoms at this time. She admits to nausea but no vomiting. REVIEW OF SYSTEMS: Negative except for HPI. PHYSICAL EXAMINATION: GENERAL: The patient is alert and appears to be in no acute distress. She is cooperative with the exam. VITAL SIGNS: Stable. HEENT: The head is normocephalic and atraumatic. Eyes, pupils are equal. Normal conjunctivae. SKIN: Dry. HEART: Regular rate and rhythm. LUNGS: Clear. ABDOMEN: Soft. There is some mild diffuse abdominal tenderness to palpation. No peritoneal signs. No rebound, rigidity, or guarding. No signs of surgical abdomen. EMERGENCY DEPARTMENT CLINICAL COURSE: The patient was hemodynamically stable. I did get lab work on the patient which showed a white count of 4.8, hemoglobin is 10.7 with hematocrit of 34.1, and platelet count is 285, 000. Chemistry panel was unremarkable. Liver function tests were normal. Lipase was minimally high at 88. Urinalysis did not show any obvious signs of infection. I did get a CT scan of the abdomen and pelvis which showed moderate diverticulosis without complication. No acute surgical finding. At this point, the patient did have some mild diffuse abdominal discomfort. Again, no peritoneal signs, very benign exam. At this point, I had given the patient morphine as well as Zofran. The patient has not been vomiting. I think the patient can be discharged home. I do not suspect any acute surgical abdomen. She is hemodynamically stable. She is going to follow up with her doctor. I am going to give her a prescription for Bentyl as well as Zofran. She is to return to the emergency department if symptoms worsen or if new symptoms develop. IMPRESSION: 1. Nonspecific abdominal pain. 2. History of irritable bowel syndrome. DISPOSITION: The patient will be discharged home. Report#: Dict ID [id number] / Int ID [id number] 10/20/22 1513 MEMO MATTA D.O. cc: MEDHAT DENNY M.D.; MEMO MATTA D.O. << Signature on File>> Reported By: MEMO MATTA D.O. Signed By: MEMO MATTA D.O. Tests performed at: [address] [address] Normal [facility] BMPon 10-18-2022 Anion gap [Moles/Vol] 12.5 mmol/L Low - [facility] Comment on above: Performed By: #### L 100.0010, L100.0030, L100.0350 #### [facility] [address] [place] [address] Calcium [Mass/Vol] 8.9 mg/dL Normal 8.6-10.0 [facility] Comment on above: Performed By: #### L 100.0010, L100.0030, L100.0350 #### - LABORATORY [address] [place] [address] Chloride [Moles/Vol] 110 mmol/L High 98-107 [facility] Comment on above: Performed By: #### L 100.0010, L100.0030, L100.0350 #### ML - LABORATORY [address] [place] [address]2377 CO2 [Moles/Vol] 21 mmol/L Low 22-29 [facility] Comment on above: Performed By: #### L 100.0010, L100.0030, L100.0350 #### - LABORATORY [address] [place] [address]249 Creatinine [Mass/Vol] 0.75 mg/dL Normal 0.50-0.90 [facility] Comment on above: Performed By: #### L 100.0010, L100.0030, L100.0350 #### ML - LABORATORY [address] [place] [address]955 eGFR if AFR SARITHA > 60 ml/min/1.73m2 Normal [facility] Comment on above: Result Comment: eGFR >= 60 Indicates normal kidney function. * eGFR IS AN ESTIMATE * (AFR SARITHA = ) (non-AFR AM = NON-) MDRD calculation used in the eGFR should not be used to dose medications. For further limitations of the eGFR please refer to the Physician Website or the National Kidney Disease Education Program website (www.nkdep.nih.gov). Performed By: #### L 100.0010, L100.0030, L100.0350 #### ML - LABORATORY [address] [place] [address]74 eGFR nonAFR Saritha > 60 ml/Min/1.73m2 Normal [facility] Comment on above: Performed By: #### L 100.0010, L100.0030, L100.0350 #### ML - LABORATORY [address] [place] [address] Glucose [Mass/Vol] 91 mg/dL Normal 74-106 [facility] Comment on above: Performed By: #### L 100.0010, L100.0030, L100.0350 #### ML - LAB[facility]ATORY [address] [place] [address]462 Potassium [Moles/Vol] 3.5 mmol/L Normal 3.5-5.0 [facility] Comment on above: Performed By: #### L 100.0010, L100.0030, L100.0350 #### ML - LABORATORY [address] [place] [address] 82527 Sodium [Moles/Vol] 140 mmol/L Normal 135-145 [facility] Comment on above: Performed By: #### L 100.0010, L100.0030, L100.0350 #### ML - LAB[facility]ATORY [address] [place] [address]237 Urea nitrogen [Mass/Vol] 8 mg/dL Normal 6-20 [facility] Comment on above: Performed By: #### L 100.0010, L100.0030, L100.0350 #### ML - LAB[facility]ATORY [address] [place] [address] Basic metabolic 2000 panelon 10-18-2022 Anion gap [Moles/Vol] 12.5 mmol/L Low 15 - 2 2 mmol/L [facility] Calcium [Mass/Vol] 8.9 mg/dL 8.6 - 10. 0 mg/dL [facility] Chloride [Moles/Vol] 110 mmol/L High 98 - 10 7 mmol/L [facility] CO2 [Moles/Vol] 21 mmol/L Low 22 - 29 mmol/L [facility] Creatinine [Mass/Vol] 0.75 mg/dL 0.50 - 0.90 mg/dL [facility] eGFR-All Other Races > 60 ml/Min/1.73m2 [facility] GFR/1.73 sq M.predicted among blacks MDRD (S/P/Bld) [Vol rate/Area] mL/min/{1.73_m2} [facility] Glucose [Mass/Vol] 91 mg/dL 74 - 106 mg/dL [facility] Potassium [Moles/Vol] 3.5 mmol/L 3.5 - 5.0 mmol/L [facility] Sodium [Moles/Vol] 140 mmol/L 135 - 145 mmol/L [facility] Urea nitrogen [Mass/Vol] 8 mg/dL 6 - 20 mg/dL [facility] CBCon 10-18-2022 BASO# 0.00 x10(3) Normal 0.00-0.10 [facility] Comment on above: Performed By: #### L 200.0010 #### ML - LABORATORY [address] [place] [address] Basophils/100 WBC (Bld) 0.3 % Normal 0.0-1.0 [facility] Comment on above: Performed By: #### L 200.0010 #### ML [facility] [address] [place] [address]18 EOS# 0.10 x10(3) Normal 0.00-0.54 [facility] Comment on above: Performed By: #### L 200.0010 #### ML [facility] [address] [place] [address] Eosinophils/100 WBC (Bld) 2.1 % Normal 0.5-4.9 [facility] Comment on above: Performed By: #### L 200.0010 #### ML [facility] [address] [place] [address] Erythrocyte distribution width (RBC) [Ratio] 15.1 % Normal 12.5-15.7 [facility] Comment on above: Performed By: #### L 200.0010 #### ML [facility] [address] [place] [address] Hematocrit (Bld) [Volume fraction] 34.1 % Low 36.0-48.0 [facility] Comment on above: Performed By: #### L 200.0010 #### ML [facility] [address] [place] [address] Hemoglobin (Bld) [Mass/Vol] 10.7 g/dL Low 12.0-16.0 [facility] Comment on above: Performed By: #### L 200.0010 #### [facility] [address] [place] [address] 35863 LYMPH# 1.20 x10(3) Normal 1.00-3.50 [facility] Comment on above: Performed By: #### L 200.0010 #### ML [facility] [address] [place] [address] 50971 Lymphocytes/100 WBC (Bld) 24.2 % Normal 16.0-48.0 [facility] Comment on above: Performed By: #### L 200.0010 #### ML [facility] [address] [place] [address] 92547 MCH (RBC) [Entitic mass] 24.0 pg Low 28.5-32.9 [facility] Comment on above: Performed By: #### L 200.0010 #### [facility] [address] [place] [address] MCHC (RBC) [Mass/Vol] 31.3 g/dL Low 33.0-36.0 [facility] Comment on above: Performed By: #### L 200.0010 #### [facility] [address] [place] [address] MCV (RBC) [Entitic vol] 76.8 fL Low 80.0-99.0 [facility] Comment on above: Performed By: #### L 200.0010 #### ML [facility] [address] [place] [address] 157[address] MONO# 0.40 x10(3) Normal 0.30-0.80 [facility] Comment on above: Performed By: #### L 200.0010 #### ML [facility] [address] [place] [address] Monocytes/100 WBC (Bld) 8.0 % Normal 4.3-11.2 [facility] Comment on above: Performed By: #### L 200.0010 #### [facility] [address] [place] [address] 61545 NEUT# 3.10 x10(3) Normal 1.40-6.50 [facility] Comment on above: Performed By: #### L 200.0010 #### ML - LABORATORY [address] [place] [address] 19446 Neutrophils/100 WBC (Bld) 65.4 % Normal 45.0-73.0 [facility] Comment on above: Performed By: #### L 200.0010 #### ML - LABORATORY [address] [place] [address]13[address] Platelet mean volume (Bld) [Entitic vol] 7.2 fL Low 7.5-9.5 [facility] Comment on above: Performed By: #### L 200.0010 #### ML [facility] [address] [place] [address] 65069 PLT 285 X10(3) Normal 150-450 [facility] Comment on above: Performed By: #### L 200.0010 #### ML [facility] [address] [place] [address] 54018 RBC 4.44 x10(6) Normal 3.30-5.00 [facility] Comment on above: Performed By: #### L 200.0010 #### ML [facility] [address] [place] [address]66[address] WBC 4.8 x10(3) Normal 4.5-10.0 [facility] Comment on above: Performed By: #### L 200.0010 #### ML [facility] [address] [place] [address] 269[address] CBC W Auto Differential pane l (Bld)on 10-18-2022 BASO ABS 0.00 x10(3) 0.00 - 0.10 x10(3) [facility] Basophils/100 WBC (Bld) 0.3 % 0.0 - 1.0 % [facility] EOS ABS 0.10 x10(3) 0.00 - 0.54 x10(3) [facility] Eosinophils/100 WBC (Bld) 2.1 % 0.5 - 4.9 % [facility] Erythrocyte distribution width (RBC) [Ratio] 15.1 % 12.5 - 15.7 % [facility] Hematocrit (Bld) [Volume fraction] 34.1 % Low 36.0 - 48.0 % [facility] Hemoglobin (Bld) [Mass/Vol] 10.7 g/dL Low 12.0 - 16.0 g/dL [facility] LYMPH ABS 1.20 x10(3) 1.00 - 3.50 x10(3) [facility] Lymphocytes/100 WBC (Bld) 24.2 % 16.0 - 48.0 % [facility] MCH (RBC) [Entitic mass] 24.0 pg Low 28.5 - 32.9 pg [facility] MCHC (RBC) [Mass/Vol] 31.3 g/dL Low 33.0 - 36.0 g/dL [facility] MCV (RBC) [Entitic vol] 76.8 fL Low 80.0 - 99.0 fl [facility] MONO ABS 0.40 x10(3) 0.30 - 0.80 x10(3) [facility] Monocytes/100 WBC (Bld) 8.0 % 4.3 - 11.2 % [facility] Neutrophil Ab 3.10 x10(3) 1.40 - 6.50 x10(3) [facility] Neutrophils/100 WBC (Bld) 65.4 % 45.0 - 73.0 % [facility] Platelet Count 285 X10(3) 150 - 450 X10(3) [facility] Platelet mean volume (Bld) [Entitic vol] 7.2 fL Low 7.5 - 9.5 fl [facility] RBC 4.44 x10(6) 3.30 - 5.00 x10(6) [facility] WBC 4.8 x10(3) 4.5 - 10.0 x10(3) [facility] CT ABD/PEL W CONTRASTon 09-23 CT ABD/PEL W CONTRAST [place] [address] Name: SUHA CALIX Phys: MEMO MATTA D.O. : [birth year] Age: 42 Sex: F Acct: [id number] Loc: ED Exam Date: 10/18/22 Status: REG ER Radiology No.: Unit Number: [id number] Exam # Type/Exam [id number] CT / CT ABD/PEL W CONTRAST EXAMINATION: CT OF THE ABDOMEN AND PELVIS WITH CONTRAST 10/18/2022 3:35 pm TECHNIQUE: CT of the abdomen and pelvis was performed with the administration of intravenous contrast. Multiplanar reformatted images are provided for review. Automated exposure control, iterative reconstruction, and/or weight based adjustment of the mA/kV was utilized to reduce the radiation dose to as low as reasonably achievable. COMPARISON: None. HISTORY: ORDERING SYSTEM PROVIDED HISTORY: TECHNOLOGIST PROVIDED HISTORY: Reason for Exam: abdominal pain History of IBS and melanoma. FINDINGS: Lower Chest: There is symmetric pneumatization of the right and left lung. No active alveolar, interstitial or pericardial disease is evident. There is no distal esophageal abnormality. Organs: The enhanced liver, spleen, gallbladder, adrenal glands, pancreas, and kidneys appear unremarkable. GI/Bowel: Appropriate oral contrast enhancement of the small bowel loops is present. There is no bowel obstruction. The appendix is not discretely imaged but there is no inflammatory process in the right lower quadrant. Moderate diverticulosis affects the sigmoid colon without complication. Pelvis: Urinary bladder is distended and smooth in contour. There is no pelvic ascites, lymphadenopathy or mass. The uterus is surgically absent. Peritoneum/Retroperitoneum: Inferior vena caval filter is observed in functional position. Abdominal aorta and its branches are normal. There is no pathologic lymphadenopathy, ascites or free air. Bones/Soft Tissues: Skeletal elements are intact and age-appropriate. IMPRESSION: 1. Moderate sigmoid diverticulosis without complication. 2. No acute surgical finding. Electronically signed By Nirmal Paredes DO 10/18/2022 3:48:08 PM EST Workstation ID : [id number] < > Reported By: NIRMAL PAREDES D.O. Signed In Fluency By: NIRMAL PAREDES D.O. << Signature on File>> Reported By: NIRMAL PAREDES D.O. Signed By: NIRMAL PAREDES D.O. Tests performed at: [address] [address] Normal [facility] CT ABD/PEL W IVCONon 022 [facility] HEPATIC PANELon 10-18-2022 A:G RATIO 2.26 Normal 1.1-2.5 [facility] Comment on above: Performed By: #### L 100.0010, L100.0030, L100.0350 #### - LABORATORY [address] [place] [address] 10565 Albumin [Mass/Vol] 4.3 g/dL Normal 3.5-5.2 [facility] Comment on above: Performed By: #### L 100.0010, L100.0030, L100.0350 #### ML - LAB[facility]AT[facility] [address] [place] [address] 91621 ALK. PHOS 59 U/L Normal 35-105 [facility] Comment on above: Performed By: #### L 100.0010, L100.0030, L100.0350 #### - LABORATORY [address] [place] [address] 23417 ALT [Catalytic activity/Vol] 10 U/L Normal 5-33 [facility] Comment on above: Performed By: #### L 100.0010, L100.0030, L100.0350 #### [facility] [address] [place] [address] 34379 AST [Catalytic activity/Vol] 13 U/L Normal 5-32 [facility] Comment on above: Performed By: #### L 100.0010, L100.0030, L100.0350 #### - LABORATORY [address] [place] [address] 79691 Bilirubin [Mass/Vol] 0.2 mg/dL Normal 0.2-1.2 [facility] Comment on above: Performed By: #### L 100.0010, L100.0030, L100.0350 #### - LABORATORY [address] [place] [address] 35556 DIRECT BILIRUBI <0.2 Normal 0.0-0.3 [facility] Comment on above: Performed By: #### L 100.0010, L100.0030, L100.0350 #### [facility] [address] [place] [address] 89998 Globulin (S) [Mass/Vol] 1.9 g/dL Normal 1.5-4.5 [facility] Comment on above: Performed By: #### L 100.0010, L100.0030, L100.0350 #### - LABORATORY [address] [place] [address] Protein [Mass/Vol] 6.2 g/dL Low 6.4-8.3 [facility] Comment on above: Performed By: #### L 100.0010, L100.0030, L100.0350 #### ML - LABORATORY [address] [place] [address] Hepatic function 2000 panelo n 10-18-2022 Albumin [Mass/Vol] 4.3 g/dL 3.5 - 5.2 g/dL [facility] Albumin/Globulin [Mass ratio] 2.26 {ratio} 1.1 - 2.5 [facility] ALP [Catalytic activity/Vol] 59 U/L 35 - 105 U/L [facility] ALT [Catalytic activity/Vol] 10 U/L 5 - 33 U/L [facility] AST [Catalytic activity/Vol] 13 U/L 5 - 32 U/L [facility] Bilirubin [Mass/Vol] 0.2 mg/dL 0.2 - 1 .2 mg/dL [facility] Direct Bilirubin <0.2 0.0 - 0.3 mg/dL [facility] Globulin (S) [Mass/Vol] 1.9 g/dL 1.5 - 4.5 g/dL [facility] Protein [Mass/Vol] 6.2 g/dL Low 6.4 - 8.3 g/dL [facility] LIPASEon 10-18-2022 Lipase [Catalytic activity/Vol] 88 U/L High 13-60 [facility] Comment on above: Performed By: #### L 100.0010, L100.0030, L100.0350 ####[facility] - [facility] [id number] [place] [address] LIPASE BLDon 10-18-2022 Lipase [Catalytic activity/Vol] 88 U/L High 13 - 60 U/L [facility] URINALYSISon 10-18-2022 Bilirubin Ql (U) Negative Normal NEGATIVE [facility] Comment on above: Order Comment: Urine Specimen Source+ CLEAN CATCH Performed By: #### L 200.3000 #### [facility] - [facility] [address] [place] [address] 72019 Color (U) YELLOW Normal YELLOW [facility] Comment on above: Order Comment: Urine Specimen Source+ CLEAN CATCH Performed By: #### L 200.3000 #### [facility] [address] [place] [address] 19502 Glucose Ql (U) Negative Normal NEGATIVE [facility] Comment on above: Order Comment: Urine Specimen Source+ CLEAN CATCH Performed By: #### L 200.3000 #### [facility] [address] [place] [address] 39157 Hemoglobin Ql (U) Negative Normal NEGATIVE [facility] Comment on above: Order Comment: Urine Specimen Source+ CLEAN CATCH Performed By: #### L 200.3000 #### [facility] [address] [place] [address] 97550 Leukocyte esterase Test strip Ql (U) Negative Normal NEGATIVE [facility] Comment on above: Order Comment: Urine Specimen Source+ CLEAN CATCH Performed By: #### L 200.3000 #### ML - [facility] [address] [place] [address] 56855 Nitrite Ql (U) Negative Normal NEGATIVE [facility] Comment on above: Order Comment: Urine Specimen Source+ CLEAN CATCH Performed By: #### L 200.3000 #### [facility] - [facility] [address] [place] [address] 50078 pH (U) 7.0 [pH] Normal 5.0-8.0 [facility] Comment on above: Order Comment: Urine Specimen Source+ CLEAN CATCH Performed By: #### L 200.3000 #### [facility] - [facility] [address] [place] [address] 65843 Protein Ql (U) Negative Normal NEGATIVE [facility] Comment on above: Order Comment: Urine Specimen Source+ CLEAN CATCH Performed By: #### L 200.3000 #### [facility] - [facility] [address] [place] [address] 38797 URINE APPEARANC CLEAR Normal CLEAR [facility] Comment on above: Order Comment: Urine Specimen Source+ CLEAN CATCH Performed By: #### L 200.3000 #### [facility] [address] [place] [address] 57306 URINE KETONE Negative Normal NEGATIVE [facility] Comment on above: Order Comment: Urine Specimen Source+ CLEAN CATCH Performed By: #### L 200.3000 #### ML - LABORATORY [address] [place] [address] URINE SPECIFIC <=1.005 Normal 1.001-1.03 5 [facility] Comment on above: Order Comment: Urine Specimen Source+ CLEAN CATCH Performed By: #### L 200.3000 #### ML - [facility] [address] [place] [address] 30421 URINE UROBILINO 0.2 EU/DL Normal 0.2-1.0 [facility] Comment on above: Order Comment: Urine Specimen Source+ CLEAN CATCH Performed By: #### L 200.3000 #### ML - [facility] [address] [place] [address] 84004 URINALYSIS, DIPSTICK ONLYon 10-18-2022 Appearance (U) CLEAR CLEAR [facility] Bilirubin, Urine Negative NEGATIVE [facility] Blood, Urine Negative NEGATIVE [facility] Color (U) YELLOW YELLOW [facility] Glucose Ql (U) Negative NEGATIVE MG/DL [facility] Ketones Ql (U) Negative NEGATIVE MG/DL [facility] Leukocytes Negative NEGATIVE [facility] Nitrites Urine Negative NEGATIVE [facility] pH (U) 7.0 [pH] 5.0 - 8.0 [facility] [facility] Protein.monoclonal (U) [Mass/Vol] Negative NEGATIVE MG/DL [facility] Specific Crystal, Ur <=1.005 1.001 - 1.035 [facility] Urobilinogen, Urine 0.2 EU/DL 0.2 - 1. 0 EU/DL [facility] CNOVon 08-02-2022 CNOV Office Visit ([facility] ) SUHA CALIX ([id number]) 1980 F Date Time Provider Department 08/02/22 9:00 AM BEBETO SOLIMAN [facility] During your visit today, we recorded the following information about you: Temperature Pulse Blood pressure Weight 98 degrees 80/minute 106/72 56 kg Height 1.651 m Bebeto Soliman, DATA SCIENCE AND IOT MANAGER.PREPARED FOODS SERVICE TEAM MEMBER 08/02/2022 9:24 AM Signed Suha Calix is a 42 year old female who presents Patient presents with: Back Pain Abdominal Pain Blood In Urine Overview Notes of Problems Addressed This Visit Nephrology UTI symptoms - Primary Patient states she is having symptoms of dysuria, hematuria, urinary frequency, low back pain, suprapubic pain. Denies fever, fatigue, chills, nausea, vomiting, dizziness, retention, or incontinence. Has been drinking a lot of water. Relevant Medications nitrofurantoin monohydrate and macrocrystal (MACROBID) 100 mg capsule phenazopyridine (PYRIDIUM) 200 mg tablet REVIEW OF SYSTEMS See HPI BP 106/72 Pulse 80 Temp (Src) 98 (Oral) Ht 5' 5 (1.65m) Wt 123 lb 8 oz (56.0kg) SpO2 100% LMP 02/16/2022 BMI 20.55 kg/(m2). Physical Exam General: Cooperative, no acute distress, alert, well nourished, well developed Integumentary: No rashes, color normal, normal moisture Chest and Lungs: Respirations easy and non-labored. No use of accessory muscles. Abdomen: Inspection normal. Palpation/percussion: soft, tender suprapubic. No CVA tenderness to left or right. No rebound tenderness, rigidity, or guarding. No masses. No hepatosplenomegaly. Auscultation reveals normal bowel sounds in all 4 quadrants ASSESSMENT/PLAN: 1. Acute cystitis without hematuria - ICD9: 595.0, ICD10: N30.00 Instructed to increase water intake. Educated on new prescriptions. Instructed to call the office or go to the ER if develops fever, flank pain, vomiting, urinary retention, or urinary incontinence. Make another appointment if symptoms not improving. Once I receive urine culture I will call if antibiotic needs changed. Patient verbalizes understanding of discharge instructions, and in agreement with treatment plan. Agrees to call the office if symptoms do not improve or they worsen. - UA DIP B/O - URINE CULTURE - NITROFURANTOIN MONOHYDRATE AND MACROCRYSTAL 100 MG ORAL CAP - PHENAZOPYRIDINE 200 MG TABLET Bebeto Soliman I reviewed her past medical, surgical, social, and family histories today and updated chart. Allergies, chronic medications, and supplements were also reviewed and the list is now up to date. Health maintenance has been discussed. Allergies As of Date: 08/02/2022 Noted Allergy Reaction LATEX 03/16/2021 2 - Rash PENICILLINS 03/16/2021 10 - Anaphylaxis TAPE (ADHESIVE TAPE-SILICONES) 06/15/2022 2 - Rash TORADOL (KETOROLAC) 03/16/2021 7 - Swelling Comments: Tongue swelling Date Reviewed: 06/15/2022 Reviewed by: Madison Denny PA-C - Fully Assessed Reason for Visit: Back Pain [12] Abdominal Pain [1] Blood In Urine [3904] Primary Visit Diagnosis:Acute cystitis without hematuria [N30.00] Order(s):UA DIP B/O [5254795] Order #: [id number] URINE CULTURE [SQURCUL] Order #: [id number] FUTURE nitrofurantoin monohydrate and macrocrystal (MACROBID) 100 mg capsuleTake 1 capsule by mouth twice daily.Disp: 14 capsuleRfl: 0 phenazopyridine (PYRIDIUM) 200 mg tabletTake 1 tablet by mouth three times daily as needed for pain for up to 3 days.Disp: 9 tabletRfl: 0 Prescriptions as of 08/02/2022 - tiZANidine (ZANAFLEX) 4 mg tablet TAKE 1 TABLET BY MOUTH THREE TIMES A DAY NEEDED FOR PAIN - nitrofurantoin monohydrate and macrocrystal (MACROBID) 100 mg capsule Take 1 capsule by mouth twice daily. - phenazopyridine (PYRIDIUM) 200 mg tablet Take 1 tablet by mouth three times daily as needed for pain for up to 3 days. - topiramate (TOPAMAX) 100 mg tablet TAKE 1 TABLET BY MOUTH TWICE A DAY - fluticasone (FLONASE) 50 mcg/actuation nasal spray INSTILL ONE SPRAY INTO EACH NOSTRIL ONCE A DAY - levothyroxine (SYNTHROID) 112 mcg tablet Take 1 tablet by mouth once daily. - eletriptan (RELPAX) 20 mg tablet Take 1 tablet by mouth as needed for migraine headache (see administration instructions). may repeat in 2 hours if necessary - acetaminophen (TYLENOL EXTRA STRENGTH) 500 mg tablet Take 2 tablets by mouth every 6 hours. - ibuprofen (MOTRIN) 600 mg tablet Take 1 tablet by mouth every 6 hours. Take with food. - pantoprazole DR (PROTONIX) 40 mg tablet TAKE 1 TABLET BY MOUTH EVERY DAY 30 MIN BEFORE A MEAL - polyethylene glycol 3350 (MIRALAX, GLYCOLAX) 17 gram/dose powder Take 17 g by mouth once daily. - apixaban (ELIQUIS) 5 mg tab(s) Take 1 tablet by mouth twice daily. - ondansetron orally disintegrating (ZOFRAN ODT) 4 mg disintegrating tablet Take 1 tablet by mouth every 8 hours as needed for nausea/vomiting. Problem List A (more content not included)... Normal [facility] UA DIP B/Oon 08-02-2022 Bilirubin, Urine Negative Neg [facility] Color/Appearance yellow/cloudy [facility] Glucose Ql (U) Negative Neg mg/dL [facility] Hemoglobin/Blood,Ur Negative Neg [facility] Ketones Ql (U) Negative Neg [facility] Leukocytes trace Neg [facility] Nitrite Ql (U) Negative Neg [facility] pH (U) 7.5 [pH] 4.5 - 8.0 [facility] Protein.monoclonal (U) [Mass/Vol] Negative Neg mg/dL [facility] Specific Crystal, Ur 1.010 1.005 - 1.030 [facility] Urobilinogen, Urine Negative Normal (<1.1) [facility] SUHA CALIX ([id number]) 1980 F Date Time Provider Department 07/15/22 MEDHAT DENNY [facility] During your visit today, we recorded the following information about you: Dee Dee Mccann 07/15/2022 1:17 PM Signed Patient called in regard to two questions: 1.) Patient called stating she needs a 2 step TB test done for her employer. Can you order and we do this at our office? 2.) Patient is only able to wear [employer] to work due to standing for 12+ hours. Her employer advised her she would need a doctor's note in order to continue wearing them to work, as they are now against the dress code policy. Patient stated she wears them due to having large puffy feet, and also mentioned having a foot condition. Please advise. Rosalina Hilton APRN.DOLORES 07/15/2022 2:09 PM Signed Schedule wellness Gladis Castillo 07/15/2022 5:00 PM Signed Patient is schedule for Monday07/22/22 Allergies As of Date: 07/15/2022 Noted Allergy Reaction LATEX 03/16/2021 2 - Rash PENICILLINS 03/16/2021 10 - Anaphylaxis TAPE (ADHESIVE TAPE-SILICONES) 06/15/2022 2 - Rash TORADOL (KETOROLAC) 03/16/2021 7 - Swelling Comments: Tongue swelling Date Reviewed: 06/15/2022 Reviewed by: Madison Denny PA-C - Fully Assessed Reason for Visit: TB test/Letter for Amor showicho [Other] Prescriptions as of 07/18/2022 - topiramate (TOPAMAX) 100 mg tablet TAKE 1 TABLET BY MOUTH TWICE A DAY - fluticasone (FLONASE) 50 mcg/actuation nasal spray INSTILL ONE SPRAY INTO EACH NOSTRIL ONCE A DAY - levothyroxine (SYNTHROID) 112 mcg tablet Take 1 tablet by mouth once daily. - eletriptan (RELPAX) 20 mg tablet Take 1 tablet by mouth as needed for migraine headache (see administration instructions). may repeat in 2 hours if necessary - acetaminophen (TYLENOL EXTRA STRENGTH) 500 mg tablet Take 2 tablets by mouth every 6 hours. - ibuprofen (MOTRIN) 600 mg tablet Take 1 tablet by mouth every 6 hours. Take with food. - pantoprazole DR (PROTONIX) 40 mg tablet TAKE 1 TABLET BY MOUTH EVERY DAY 30 MIN BEFORE A MEAL - polyethylene glycol 3350 (MIRALAX, GLYCOLAX) 17 gram/dose powder Take 17 g by mouth once daily. - apixaban (ELIQUIS) 5 mg tab(s) Take 1 tablet by mouth twice daily. - ondansetron orally disintegrating (ZOFRAN ODT) 4 mg disintegrating tablet Take 1 tablet by mouth every 8 hours as needed for nausea/vomiting. Problem List As Of Date 07/15/2022 Noted Resolved H/O protein C deficiency [Z86.2] H/O protein S deficiency [Z86.2] Migraines [G43.909] Malignant melanoma (HCC) [C43.9] History of DVT (deep vein thrombosis) [Z86.718] 10/04/2021 Hypothyroidism [E03.9] 04/26/2021 Neck pain [M54.2] 06/14/2022 Right leg pain [M79.604] 06/14/2022 Left leg pain [M79.605] 06/14/2022 Myofascial pain syndrome [M79.18] 06/14/2022 Encounter Status:Closed by DEE DEE MCCANN on 07/18/22 Normal [facility] PHYSICAL THERAPY REPORTon PHYSICAL THERAPY REPORT [facility] [place] [address] PHYSICAL THERAPY REPORT Patient: SUHA CALIX MEDHAT FROST M.D. [id number] [age] F Status: REG RCR PT Physical Therapy Discharge Summary DATE: 06/06/2022 PHYSICIAN: Rosanne Estrada Dr.: The patient has completed her physical therapy. As you may recall, you sent the patient to the [facility] with a diagnosis of left sciatica. The patient was last seen in physical therapy on 05/25/2022. At that time, her treatment consisted of strengthening, range of motion/stretching, lumbar stabilization exercises, and instruction with a home exercise program. Since the patient's last visit, she canceled her remaining appointments and reported that her vascular surgeon said that physical therapy was hurting her circulation and she canceled her remaining appointments. DISCHARGE INSTRUCTIONS: At this time, she is considered discharged from active physical therapy. Thank you for the opportunity to participate with the patient's plan of care. Report#: Dict ID [id number] / Int ID [id number] cc: MEDHAT DENNY Dictated By: VEGA GRAVES DPT 06/07/22 1126 VEGA GRAVES DPT CC: << Signature on File>> Reported By: VEGA GRAVES DPT Signed By: VEGA GRAVES DPT Tests performed at: [address] [address] Normal [facility] PHYSICAL THERAPY REPORTon PHYSICAL THERAPY REPORT [facility] [place] [address] PHYSICAL THERAPY REPORT Patient: SUHA CALIX PEDRO MEDHAT DENNY M.D. [id number] F Status: REG RCR PT Physical Therapy Initial Evaluation DATE OF VISIT: 05/16/2022 PHYSICIAN: Dr. Denny. PHYSICAL THERAPY DIAGNOSES: 1. Left-sided low back pain. 2. Left sciatica. MEDICAL DIAGNOSIS: Left-sided sciatica, M54.32. ONSET DATE: 02/20/2022. CHIEF COMPLAINT/FUNCTIONAL LIMITATIONS: Left-sided low back pain with intermittent left sciatica, which the patient rates as a 6 to 7/10 and reports it increases with sitting, standing, or walking. PERSONAL FACTORS AND COMORBIDITIES: 1. Long history of low back pain with sciatic symptoms. 2. Recent hysterectomy. HISTORY: The patient reports that her symptoms have been on and off for many years, but have recently increased over the last few months. The patient does report that she had a hysterectomy this past January. 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 She has not worked since her hysterectomy. She is currently not performing any exercises specific to her back or sciatic symptoms. She reports that taking weight off her left side when sitting, elevating and using heat helps her symptoms. She has also taken Eliquis secondary to history of DVTs. She does report x-rays were taken. OBJECTIVE FINDINGS: ACTIVE RANGE OF MOTION: The patient's lumbar flexion with her hands to her ankle level, extension was 50% and was limited secondary to pain and bilateral side bending was within normal limits, but painful to the left. GAIT/AMBULATION: The patient ambulated with a decrease in trunk rotation noted. FLEXIBILITY: The patient's bilateral hamstring, quad and hip flexor flexibility was symmetrical and within normal limits. PALPATION/OBSERVATION: The patient was tender to her left PSIS and also to her left piriformis musculature. TEST MOVEMENTS: With extension in lying and repeat extension lying, the patient reported no increase in symptoms and she had no peripheralization of symptoms as well. At the end of the session, the patient was instructed with a home exercise program which included progressive strengthening, lumbar stabilization exercises, range of motion/ stretching, nerve glides, and Lennie extension principles which she is able to correctly demonstrate. PROBLEM LIST/FUNCTIONAL LIMITATIONS: 1. Left-sided low back pain. 2. Left sciatic symptoms. 3. Decreased lumbar extension. 4. No formal exercise program. SHORT TERM GOALS: The patient will be independent with a home exercise program within 1 to 2 weeks. LONG-TERM GOALS: 1. The patient will report an overall reduction in her left-sided low back pain to less than or equal to 2/10 within 6 weeks. 2. The patient will report a decrease in the frequency of her radicular symptoms in her left lower extremity within 6 weeks. 3. The patient will report greater than or equal to 50% improvement overall with her symptoms within 6 weeks. 4. The patient will improve her lumbar extension to 75% within 6 weeks. PROGNOSIS/REHAB POTENTIAL: Good for physical therapy goals. TREATMENT PLAN: The patient will be seen for progressive strengthening, lumbar stabilization exercises, range of motion/stretching, Lennie extension principles, nerve glides, and instruction with a home exercise program. FREQUENCY/DURATION: 1 to 2 times a week for 6 weeks. DISCHARGE PLAN: The patient will be discharged from active physical therapy upon completion of all goals set before her, plateauing with physical therapy progress, and/or maximizing her current physical therapy prescription. Thank you for the opportunity to participate with the patient's plan of care. Report#: Dict ID [id number] / Int ID [id number] cc: MEDHAT DENNY Dictated By: VEGA GRAVES DPT 05/17/22 1720 VEGA GRAVES DPT CC: << Signature on File>> Reported By: VEGA GRAVES DPT Signed By: VEGA GRAVES DPVarsha Tests performed at: [place] [address] Normal [facility] US ABD LTD SINGLE ORGANon US ABD LTD SINGLE ORGAN [address] [address] Name: SUHA CALIX Phys: MEDHAT DENNY M.D. : [birth year] Age: 42 Sex: F Acct: [id number] Loc: RAD US Exam Date: 05/12/22 Status: PRE CLI Radiology No.: Unit Number: [id number] Exam # Type/Exam [id number] US / US ABD LTD SINGLE ORGAN EXAMINATION: LIMITED ABDOMINAL ULTRASOUND05/12/2022 7:23 am ABDOMEN LIMITED COMPARISON: None HISTORY: ORDERING SYSTEM PROVIDED HISTORY: TECHNOLOGIST PROVIDED HISTORY: Reason for Exam:. Right upper quadrant pain FINDINGS: The liver is normal in echotexture. There are couple of shadowing calcifications in the liver measuring up to 8 mm. No focal lesions are seen. There is no intra or extrahepatic bile duct dilatation. The common duct is 5 mm at the chino hepatis. The gallbladder is normally distended without calculus, wall thickening or tenderness. The visualized pancreas is normal in size and echogenicity. No ascites is seen in De Leon's pouch. The right kidney shows no pelvocaliectasis. The main portal vein measures 1.6 cm. IMPRESSION: No acute sonographic abnormality. The main portal vein is borderline dilated. Consider Doppler ultrasound Electronically signed By Nirmal Smith MD 05/12/2022 9:38:01 AM EST Workstation ID : [id number] < > Reported By: NIRMAL SMITH M.D. Signed In Fluency By: NIRMAL SMITH M.D. << Signature on File>> Reported By: NIRMAL SMITH M.D. Signed By: NIRMAL SMITH M.D. Tests performed at: [place] [address] Normal [facility] US ABDOMEN LTDon 05-12-2022 [facility] LUMBAR LTD 2 VIEW-STANDAR Don 05-03-2022 LUMBAR [facility] 2 VIEW-STANDARD [address] [address] Name: SUHA CALIX Phys: MEDHAT DENNY M.D. : [birth year] Age: 42 Sex: F Acct: [id number] Loc: UPS32 Exam Date: 05/03/22 Status: REG POV Radiology No.: Unit Number: [id number] Exam # Type/Exam [id number] FIRST CARE / LUMBAR [facility] 2 VIEW-STANDARD EXAMINATION: XR lumbar spine TECHNIQUE: Two views of the lumbar spine COMPARISON: None HISTORY: ORDERING SYSTEM PROVIDED HISTORY: TECHNOLOGIST PROVIDED HISTORY: Reason for Exam: PAIN FINDINGS: 5 [id number] lumbar vertebral bodies are present. No acute fracture or subluxation. The vertebral bodies are anatomically aligned. Mild disc height loss of L5-S1 noted. No significant degenerative changes are present. Multiple calcifications overlie the right 11th rib. An IVC filter is located at the L3 level. The left sacroiliac joint is partially obscured. The right-sided joint is unremarkable IMPRESSION: 1. Mild disc height loss at L5-S1. 2. Right flank canceled K shins reflecting either gallstones and less likely renal calculi. 3. IVC filter. Electronically signed By Charlee Paez MD 05/03/2022 9:18:52 AM EST Workstation ID : [id number] < > Reported By: CHARLEE PAEZ M.D. Signed In Fluency By: CHARLEE PAEZ M.D. << Signature on File>> Reported By: CHARLEE PAEZ M.D. Signed By: CHARLEE PAEZ M.D. Tests performed at: [address] [address] Normal [facility] Urinalysis complete panel (U )on 04-27-2022 Appearance (U) CLEAR CLEAR [facility] Bacteria, Urine TR NEGATIVE [facility] Bilirubin, Urine Negative [facility] Blood, Urine Negative NEGATIVE [facility] Color (U) ORANGE YELLOW [facility] Glucose Ql (U) Negative NEGATIVE MG/DL [facility] Ketones Ql (U) Negative NEGATIVE MG/DL [facility] Leukocytes Negative NEGATIVE [facility] Nitrites Urine Positive NEGATIVE [facility] pH (U) 5.5 [pH] 5.0 - 8.0 [facility] Protein.monoclonal (U) [Mass/Vol] Negative NEGATIVE MG/DL [facility] RBC, Urine 1-3 0 - 2 [facility] Specific Crystal, Ur <=1.005 1.001 - 1.035 [facility] Squamous Epithelial Cells RARE NEGATIVE [facility] Ur Mucous TR NEGATIVE [facility] Urobilinogen, Urine 1.0 EU/DL 0.2 - 1. 0 EU/DL [facility] WBC LM.HPF (Urine sed) [#/Area] 0 /[HPF] 0 - 5 [facility] HGB A1Con 03-23-2022 HbA1c (Bld) [Mass fraction] 5.3 % 4.3 - 6.1 % [facility] TSH Qnon 03-23-2022 TSH 1.01 uIU/mL 0.270 - 4.200 uIU/mL [facility] Basic metabolic 2000 panelon 02-24-2022 Anion gap [Moles/Vol] 9 mmol/L 9 - 18 mmol/L [facility] Calcium [Mass/Vol] 9.3 mg/dL 8.5 - 10. 2 mg/dL [facility] Chloride [Moles/Vol] 108 mmol/L High 97 - 10 5 mmol/L [facility] CO2 [Moles/Vol] 22 mmol/L 22 - 30 mmol/L [facility] Creatinine [Mass/Vol] 0.78 mg/dL 0.58 - 0.96 mg/dL [facility] Estimated Glomerular Filtration Rate 97 mL/min/1.73m >=60 mL/min/1.7 3m [facility] Glucose [Mass/Vol] 109 mg/dL High 74 - 99 mg/dL [facility] Potassium [Moles/Vol] 4.6 mmol/L 3.7 - 5.1 mmol/L [facility] Sodium [Moles/Vol] 139 mmol/L 136 - 144 mmol/L [facility] Urea nitrogen [Mass/Vol] 10 mg/dL 7 - 21 mg/dL [facility] CBC W Auto Differential pane l (Bld)on 02-24-2022 Abs Immature Gran <0.03 <0.10 k/uL [facility] Basophils (Bld) [#/Vol] 10*3/uL <0.11 k/uL [facility] Basophils/100 WBC (Bld) 0.4 % [facility] Differential cell count method Nom (Bld) Auto [facility] Eosinophils (Bld) [#/Vol] 0.10 10*3/uL <0.46 k/uL [facility] Eosinophils/100 WBC (Bld) 2.1 % [facility] Erythrocyte distribution width (RBC) [Ratio] 14.9 % 11.5 - 15.0 % [facility] Hematocrit (Bld) [Volume fraction] 35.8 % Low 36.0 - 46.0 % [facility] Hemoglobin (Bld) [Mass/Vol] 10.8 g/dL Low 11.5 - 15.5 g/dL [facility] Immature Gran % 0.2 % [facility] Lymphocytes (Bld) [#/Vol] 1.17 10*3/uL 1.00 - 4.00 k/uL [facility] Lymphocytes/100 WBC (Bld) 24.6 % [facility] MCH (RBC) [Entitic mass] 25.3 pg Low 26.0 - 34.0 pg [facility] MCHC (RBC) [Mass/Vol] 30.2 g/dL Low 30.5 - 36.0 g/dL [facility] MCV (RBC) [Entitic vol] 83.8 fL 80.0 - 100.0 fL [facility] Monocytes (Bld) [#/Vol] 0.32 10*3/uL <0.87 k/uL [facility] Monocytes/100 WBC (Bld) 6.7 % [facility] Neutrophils (Bld) [#/Vol] 3.13 10*3/uL 1.45 - 7.50 k/uL [facility] Neutrophils/100 WBC (Bld) 66.0 % [facility] Nucleated RBC (Bld) [#/Vol] 10*3/uL <0.01 k/uL [facility] Nucleated RBC/100 WBC (Bld) [Ratio] 0.0 /100 WBC [facility] Platelet mean volume (Bld) [Entitic vol] 9.6 fL 9.0 - 12.7 fL [facility] Platelets (Bld) [#/Vol] 315 10*3/uL 150 - 400 k/uL [facility] RBC (Bld) [#/Vol] 4.27 10*6/uL 3.90 - 5.20 m/uL [facility] WBC (Bld) [#/Vol] 4.75 10*3/uL 3.70 - 11.00 k/uL [facility] ANES POSTPROC EVALon 021 ANES POSTPROC EVAL HNO ID: [id number] Author: James Rocha DO Service: Anesthesiology Author Type: Anesthesiologist Type: Anesthesia Postprocedure Evaluation Filed: 10/18/2021 3:57 PM Note Text: POST ANESTHESIA EVALUATION NOTE : 1980 Procedure Summary Date: 10/18/21 Room / Location: OR10 / SP OR Anesthesia Start: 1430 Anesthesia Stop: 1539 Procedure: ENDOCERVICAL CURETTAGE (N/A Cervix) Diagnosis: Abnormal uterine bleeding Fibroids H/O protein C deficiency H/O protein S deficiency (Abnormal uterine bleeding [N93.9]) (Fibroids [D21.9]) (H/O protein C deficiency [Z86.2]) (H/O protein S deficiency [Z86.2]) Surgeons: Fernie Rascon MD Responsible Provider: James Rocha DO Anesthesia Type: general ASA Status: 3 Anesthesia Type: general Airway Type: LMA Last Vitals Vitals Value Taken Time BP 111/71 10/18/21 1545 Temp 36.5 ?C (97.7 ?F) 10/18/21 1535 Pulse 72 10/18/21 1552 Resp 23 10/18/21 1552 SpO2 99 % 10/18/21 1552 Vitals shown include unvalidated device data. Post Anesthesia Patient Status Patient Evaluation: bedside. Neurological Status: aware and responsive. Pulmonary Status: breathing comfortably on room air Airway Control: returned to baseline unsupported. Cardiovascular Status: stable. Pain Management: clinically adequate Postoperative Hydration: acceptable. Intraoperative Events: no significant anesthesia events Post Operative Nausea/Vomiting Status: no significant post operative nausea or vomiting Anesthetic Observations: Recommendation: continue current plan of care. Anesthesia Observations No Documentation SIGNATURE: James Rocha DO PATIENT NAME: Suha Calix DATE: October 18, 2021 TIME: 3:53 PM CSN: [id number] [facility] ANES PRE-OPon 10-18-2021 ANES PRE-OP HNO ID: [id number] Author: Emmanuel Fajardo DO Service: Anesthesiology Author Type: Resident Type: Anesthesia Preprocedure Evaluation Filed: 10/18/2021 1:05 PM Note Text: Attestation signed by James Rocha DO at 10/18/2021 2:34 PM ATTENDING NOTE: I have evaluated the patient and discussed the management with the resident/BRANCH ADMINISTRATOR/AA. I reviewed the resident/BRANCH ADMINISTRATOR/AA's note as well as the nursing notes and agree with the proposed anesthetic plan. James Rocha DO 2:34 PM October 18, 2021 ANESTHESIOLOGY DAY OF SURGERY NOTE : 1980 Procedure Information Date/Time: 10/18/21 1350 Procedures: HYSTEROSCOPY W/ REMOVAL LEIOMYOMATA (N/A Pelvis) INSERTION DEVICE INTRAUTERINE (N/A Pelvis) Location: OR / [facility] OR Surgeons: Fernie Rascon MD Estimated body mass index is 20.8 kg/m? as calculated from the following: Height as of 10/04/21: 165.1 cm (5' 5). Weight as of 10/04/21: 56.7 kg (125 lb). Hx of DVT's secondary to Protein C and S deficiency, last eliquis taken Monday10/15/21, last DVT was in February Most recent hematocrit and potassium results: Hematocrit 34.4 09/22/2021 Potassium 4.0 04/01/2021 Relevant Problems CARDIO (+) Migraines ENDO (+) Other specified hypothyroidism NEURO-PSYCH (+) H/O protein C deficiency (+) H/O protein S deficiency (+) History of DVT (deep vein thrombosis) (+) Migraines I - PHYSICAL EVALUATION AIRWAY Patient intubated: No. Tracheostomy tube not present Mallampati: I. TM distance: >3 FB. Neck ROM: full ROM without neurological symptoms. Mouth opening: adequate. Short neck: no. Thick neck: no DENTAL Dental findings: edentulous. Dentures, upper: complete. Dentures, lower: complete. II - ANESTHESIA PLAN ASA Score: 3 Anesthetic Plan: general Airway type: LMA The patient is not a current smoker. NPO Status: adequate Monitoring plan: standard ASA. Postoperative analgesic plan: parenteral or oral opioids and multimodal analgesia. Anesthetic Risks, Benefits, Alternatives, Personnel Discussed. Consent obtained from: patient.Patient / Surrogate agrees to blood products: Yes DNR status not reviewed with patient and/or family prior to surgery. Potential Anesthesia issues that may suggest increased risk of complications or contraindication to planned procedure: none. No vitals data found for the desired time range. Facility-Administered Medications as of 10/18/2021 Medication Dose Route Frequency - lidocaine 10 mg/mL (1 %) 1-2 mg injection (XYLOCAINE) 0.1-0.2 mL INTRADERMAL PRN - lactated ringers iv infusion 5-30 mL/hr INTRAVENOUS CONTINUOUS - acetaminophen 1,000 mg tab(s) (TYLENOL) 1,000 mg ORAL Pre-Op Once - promethazine 12.5 mg tab(s) (PHENERGAN) 12.5 mg ORAL Pre-Op Once Outpatient Medications as of 10/18/2021 Medication Sig - topiramate (TOPAMAX) 100 mg tablet Take 1 tablet by mouth twice daily. - apixaban (ELIQUIS) 5 mg tab(s) Take 1 tablet by mouth twice daily. - eletriptan (RELPAX) 20 mg tablet Take 1 tablet by mouth as needed for Migraine Headache (see administration instructions). may repeat in 2 hours if necessary - [] fluticasone (FLONASE ALLERGY RELIEF) 50 mcg/actuation nasal spray Use 1 [place] in each nostril once daily. - polyethylene glycol 3350 (MIRALAX) 17 gram/dose powder Take 17 g by mouth once daily. Dissolve dose in 4 - 8 ounces of liquid and take as directed. - ibuprofen (MOTRIN) 200 mg tablet Take 600 mg by mouth three times daily. I have interviewed and examined the patient. I have reviewed the medical record and/or the pre-anesthesia evaluation, pertinent labs, and test results. This contains updated information obtained within 48 hours of Surgery/Procedure. SIGNATURE: Emmanuel Fajardo DO PATIENT NAME: Suha Calix DATE: October 18, 2021 TIME: 1:03 PM CSN: [id number] [facility] HISTORY PHYSICALon HISTORY PHYSICAL HNO ID: [id number] Author: Ann Bland PA-C Service: Gynecology Author Type: Physician Toggle Press Operator Type: HANDP Filed: 10/18/2021 12:59 PM Note Text: UPDATED HISTORY AND PHYSICAL EXAMINATION SERVICE DATE: 10/18/2021 SERVICE TIME: 12:43 PM SERVICE: Fernie Srivastava MD PHYSICAL EXAM MUST BE COMPLETED ON ADMISSION The History and Physical (completed in the past 30 days) has been reviewed and the patient has been examined. The contents accurately reflect the patient's condition with the following additions or revisions since the HANDP was completed. Patient states she is here today for hysteroscopy, fibroid removal, and mirena. She denies fever, sweats, chills, headaches, dizziness, lightheadedness, chest pain, palpitations, shortness of breath, coughing, wheezing, abdominal pain, N/V/C/D, dysuria, hematuria, and numbness or tingling in bilateral lower extremities. Of note, patient has a hx of protein C and S deficiencies; she takes Eliquis and has an IVC filter. Adequate time was taken to answer patient's questions. She has no further complaints at this time. Planned procedure for today is: 1. HYSTEROSCOPY W/ REMOVAL LEIOMYOMATA 2. INSERTION DEVICE INTRAUTERINE Medication reconciliation list reviewed in [facility]. Past medical history, past surgical history, social history and family history reviewed and updated in [facility]. ALLERGIES Allergen Reactions - Latex Rash - Penicillins Anaphylaxis - Toradol [Ketorolac] Swelling Tongue swelling See [facility] for vitals. Examination indicates no changes. On examination today: Lungs: Clear to auscultation bilaterally. Heart: RRR, Normal S1/S2, No murmurs, rubs, gallops or thrills appreciated. Abdomen: BS+ in all quadrants, abdomen is soft, non tender, and without guarding. Assessment: 1. Abnormal uterine bleeding 2. Fibroids 3. H/O protein C deficiency 4. H/O protein S deficiency Plan: 1. HYSTEROSCOPY W/ REMOVAL LEIOMYOMATA 2. INSERTION DEVICE INTRAUTERINE This HANDP can be found in the Electronic Medical Record dated 10/06/2021 by Dina Moyer PA-C. SIGNATURE: Ann Bland PA-C PATIENT NAME: Suha Calix DATE: October 18, 2021 TIME: 12:43 PM [facility] OPERATIVE NOon 10-18-2021 OPERATIVE NO HNO ID: [id number] Author: Fernie Rascon MD Service: Gynecology Author Type: Physician Type: Operative Report Filed: 11/15/2021 2:53 PM Note Text: TWISTING DEPARTMENT END FINDER OPERATIVE/PROCEDURE REPORT LOG ID: [id number] Surgery/Procedure Date: 10/18/2021 Incision/Procedure Start Time: 2:55 PM Incision Close/Procedure End Time: 3:24 PM Surgeon(s)/Proceduralist(s) and Toggle Press Operator(s): Surgeon(s) and Role: * Fernie Rascon MD - Primary * Christa Vo I, MD - Resident - Assisting Informed Consent: Informed Consent obtained and on the chart Procedure: Hysteroscopy with lysis of endocervical adhesions Pre-Op/Pre-Procedure Diagnosis: Abnormal uterine bleeding Post-Op/Post-Procedure Diagnosis: Same as pre-op diagnosis Antibiotic: None Procedure Details: Patient was taken to the operating room where the sign-in and time out were completed. General anesthesia was induced and found to be adequate. She was placed in dorsal lithotomy position with her feet in Nolberto stirrups with careful attention not to hyperflex or hyperextend the knees or hips. SCDs were placed and turned on for DVT prophylaxis. Examination under anesthesia was performed to ascertain the position of the uterus which noted to be small, mobile and retroverted. Patient was prepped and draped in the usual fashion. An open-sided speculum was placed in the patient's vagina with clear visualization of the cervix. The anterior lip of the cervix was grasped with a single tooth tenaculum. 4 units of a dilute (20 units in 100 mL NaCl) solution of vasopressin were injected circumferentially into the cervical stroma. A uterine sound was passed and significant cervical stenosis noted. The endocervical was dilated to 15 Polish with Meyer dilator up to the level of the internal cervical os. A 6 mm 0-degree TruClear hysteroscope was introduced under direct visualization, and the endocervix was distended with normal saline and using a Thermedx infusion pump. Lysis of adhesions was attempted using the TruClear morcellator. The endometrial cavity was not visualized despite attempting lysis of adhesions in multiple areas. Fluid deficit was 440 cc, but there appeared to be no evidence of perforation based on the direct visualization. There was concern for a potential false tract. The procedure was then aborted. The patient's bladder was straight catheterized for clear yellow urine. All instruments were removed from vagina and uterine cavity. Sign-out was completed. Distention Media: normal saline IV Fluids: 300 mL lactated ringers Urine Output: 75 mL Estimated Blood Loss: 5 mL Specimens: none Implantable Devices: None Drains: None Complications: unable to complete diagnostic hysteroscopy A digital sweep of the vaginal canal was performed by the Resident and it was ascertained that no instruments or other foreign bodies are retained within the cavity. Sponge, lap, and needle counts were correct times two and the patient was taken to the recovery room with stable vital signs after tolerating the procedure well. Resident performed > 50% of the procedure, under direct supervision and the remainder of the procedure was performed by the primary surgeon/proceduralist with assistance. SIGNATURE: Christa Vo MD PATIENT NAME: Suha Calix DATE: October 18, 2021 TIME: 3:27 PM PAGER/CONTACT #: Normal [facility] URINE CULTUREon 07-26-2021 Bacteria identified Cx Nom (U) URINE RESULT 20-30,000 COL/ML MIXED BLANCHE-PLEASE REPEAT-POSSIBLE CONTAMIN Normal [facility] Comment on above: Order Comment: Niltonu s: TSC Performed By: #### M [id number] #### [facility] - [address] [address] # [phone] ABDOMEN OR KUBon 07-24-2021 ABDOMEN OR KUB ABDOMEN OR KUB Ordering Physician: Debbie Hauser MD 07/24/2021 2:23 PM KUB Clinical Statement: Low back pain, hematuria Comparison: CT 05/17/2017 FINDINGS: There are no abnormally dilated loops of bowel. Irregular calcification in the right upper quadrant corresponds with dystrophic calcification in the right hepatic lobe demonstrated on prior CT. No calcifications identified in the region of the renal shadows or along expected course of ureters. Gas and fecal material are scattered throughout the colon. An IVC filter is noted. IMPRESSION: No acute process. This report was electronically signed by Antoinette Manzano MD 07/24/2021 2:55 PM Reported By: ANTOINETTE MANZANO M.D. Signed By: ANTOINETTE MANZANO M.D. Normal [facility] DIPSTICKon 07-24-2021 POC APPEARANCE CLEAR Normal CLEAR [facility] Comment on above: Order Comment: Campu s: TSC Performed By: #### L [id number] #### [facility] - [place] [address] PH# [phone] POC BILIRUBIN Negative Normal NEGATIVE [facility] Comment on above: Order Comment: Campu s: TSC Performed By: #### L [id number] #### [facility] [place] [address] PH# [phone] POC BLOOD 10 Normal NEGATIVE [facility] Comment on above: Order Comment: Campu s: TSC Performed By: #### L [id number] #### [facility] - [address] [address] PH# [phone] POC COLOR YELLOW Normal [facility] Comment on above: Order Comment: Campu s: TSC Performed By: #### L [id number] #### [facility] [place] [address] PH# [phone] POC KETONE Negative Normal NEGATIVE [facility] Comment on above: Order Comment: Campu s: TSC Performed By: #### L [id number] #### [facility] [place] [address] [place], [place] [address] PH# [phone] POC LEUK EST Negative Normal NEGATIVE [facility] Comment on above: Order Comment: Niltonu s: TSC Performed By: #### L [id number] #### [facility] [place] [address] [place], [place] [address] PH# [phone] POC NITRITE Negative Normal NEGATIVE [facility] Comment on above: Order Comment: Niltonu s: TSC Performed By: #### L [id number] #### [facility] [place] [address] [place], [place] [address], [place] [address] PH# [phone] POC PROTEIN Negative Normal NEGATIVE [facility] Comment on above: Order Comment: Henry s: TSC Performed By: #### L [id number] #### [facility] - [address] [address] PH# [phone] POC SPEC GRAV 1.010 Normal 1.005-1.03 0 [facility] Comment on above: Order Comment: Henry s: TSC Performed By: #### L [id number] #### [facility] - [address] [address] PH# [phone] POC UA GLUCOSE NORMAL Normal NORMAL [facility] Comment on above: Order Comment: Henry s: TSC Performed By: #### L [id number] #### [facility] - [address] [address] PH# [phone] POC UA PH 7.0 Normal 5-6 [facility] Comment on above: Order Comment: Henry s: TSC Performed By: #### L [id number] #### [facility] - [address] [address] PH# [phone] POC UROBIL 0.2 MG/DL Normal NORMAL [facility] Comment on above: Order Comment: Campu s: TSC Performed By: #### L [id number] #### [facility] [place] [address] [place], [place] [address] # [phone] Critical access hospital 07-24-2021 [facility] DATE OF SERVICE: 11/2020 HISTORY OF PRESENT ILLNESS: A 41-year-old female with a chief complaint of low back pain and blood in her urine. Said this morning, she woke up and saw blood in her urine and she has been having pain on both sides of her lower back. She is not having any urinary frequency, urgency with it. It does burn when she urinates. She denies any fevers, chills, cough, runny nose, nasal congestion. PAST MEDICAL HISTORY: She has a history of blood clots in her legs, pneumonia, depression, frequent headaches, hypothyroidism, GERD and IBS. MEDICATIONS: 1. Eliquis. 2. Synthroid. 3. Protonix. 4. Topiramate. 5. Flonase. 6. Almotriptan. 7. Ibuprofen. 8. MiraLAX. ALLERGIES: PENICILLIN, TORADOL, LATEX. [facility] PATIENT NAME: SUHA CALIX [address] Neri MEDICAL REC #: [id number] [place] [address] [facility] RE[facility] PHYSICIAN SOCIAL HISTORY: No tobacco or alcohol use. FAMILY HISTORY: Hypertension. PHYSICAL EXAMINATION: Vital signs are within normal limits. She is in no acute distress. Heart: Regular rate and rhythm. No murmurs, rubs or gallops. Abdomen: Soft, tender in the suprapubic region. No rebound, guarding or rigidity. She has no CVA tenderness to percussion. Urinalysis shows yellow clear urine with a pH of 7, urobilinogen of 0.2, blood of 10. Urine sent for culture and sensitivity. KUB is negative for nephrolith or ureterolith. ASSESSMENT: Recurrent urinary tract infection. PLAN: Bactrim Double Strength twice daily for 5 days. Tylenol for pain. Hydration. Debbie Hauser MD /[id number] [facility] PATIENT NAME: SUHA CALIX Yonatan Neri MEDICAL REC #: [id number] [place] [address] [facility] RE[facility] PHYSICIAN SSI File#: [id number] END OF DOCUMENT / CHANGE LOG FOLLOWS Last Edited By Elec. Signed By Debbie Hauser MD #Debbie Ramirez MD #ANGELITA on 07/28/2021 17:16 ET on 07/28/2021 17:16 ET Revision Number - 2 Verified/Reviewed by 07/28/[address] [facility] PATIENT NAME: SUHA CALIX Yonatan Neri MEDICAL REC #: [id number] [place] [address] [facility] RE[facility] Vital Signs Date Time Vital Sign Value Performing Clinician Nadinedelicia blayne 04-09-2025 11:06-0400 Body mass index (BMI) [Ratio] 19.64 kg/m2 Libby Wang APRN.PREPARED FOODS SERVICE TEAM MEMBER Work Phone: [facility] 04-09-2025 11:06-0400 Body temperature 97.59 [degF] Libby Wang APRN.PREPARED FOODS SERVICE TEAM MEMBER Work Phone: [facility] 04-09-2025 11:06-0400 Body weight 53.52 kg Libby Wang APRN.PREPARED FOODS SERVICE TEAM MEMBER Work Phone: [facility] 04-09-2025 11:06-0400 Diastolic blood pressure 67 mm[Hg] Libby aWng APRN.PREPARED FOODS SERVICE TEAM MEMBER Work Phone: [facility] 04-09-2025 11:06-0400 Heart rate 98 /min Libby Wang APRN.PREPARED FOODS SERVICE TEAM MEMBER Work Phone: [facility] 04-09-2025 11:06-0400 Respiratory rate 18 /min Libby Wang APRN.PREPARED FOODS SERVICE TEAM MEMBER Work Phone: [facility] 04-09-2025 11:06-0400 SaO2% (BldA) [Mass fraction] 100 % Libby Wang APRN.PREPARED FOODS SERVICE TEAM MEMBER Work Phone: [facility] 04-09-2025 11:06-0400 Systolic blood pressure 98 mm[Hg] Libby Wang APRN.PREPARED FOODS SERVICE TEAM MEMBER Work Phone: [facility] 02-20-2025 11:41-0400 Body mass index (BMI) [Ratio] 19.64 kg/m2 Dipti Salmon Jr., DATA SCIENCE AND IOT MANAGER.PREPARED FOODS SERVICE TEAM MEMBER Work Phone: [facility] 02-20-2025 11:41-0400 Body temperature 97.9 [degF] Dipti Salmon Jr., DATA SCIENCE AND IOT MANAGER.PREPARED FOODS SERVICE TEAM MEMBER Work Phone: [facility] 02-20-2025 11:41-0400 Body weight 53.52 kg Dipti Salmon Jr., DATA SCIENCE AND IOT MANAGER.PREPARED FOODS SERVICE TEAM MEMBER Work Phone: [facility] 02-20-2025 11:41-0400 Diastolic blood pressure 63 mm[Hg] Dipti Salmon Jr., DATA SCIENCE AND IOT MANAGER.PREPARED FOODS SERVICE TEAM MEMBER Work Phone: [facility] 02-20-2025 11:41-0400 Heart rate 85 /min Dipti Salmon Jr., DATA SCIENCE AND IOT MANAGER.PREPARED FOODS SERVICE TEAM MEMBER Work Phone: [facility] 02-20-2025 11:41-0400 Respiratory rate 18 /min Dipti Salmon Jr., DATA SCIENCE AND IOT MANAGER.PREPARED FOODS SERVICE TEAM MEMBER Work Phone: [facility] 02-20-2025 11:41-0400 SaO2% (BldA) [Mass fraction] 99 % Dipti Salmon Jr., DATA SCIENCE AND IOT MANAGER.PREPARED FOODS SERVICE TEAM MEMBER Work Phone: [facility] 02-20-2025 11:41-0400 Systolic blood pressure 112 mm[Hg] Dipti Salmon Jr., DATA SCIENCE AND IOT MANAGER.PREPARED FOODS SERVICE TEAM MEMBER Work Phone: [facility] 12-23-2024 13:19-0500 Body height 162.[address] Jenna Ramos DO Work Phone: [facility] 12-23-2024 13:17-0500 Body mass index (BMI) [Ratio] 20.7 kg/m2 Dr. Jenna Ramos DO Work Phone: [facility] 12-23-2024 13:17-0500 Body temperature 98.1 [degF] Dr. Jenan Ramos DO Work Phone: [facility] 12-23-2024 13:17-0500 Body weight 54.[address] Jenna Ramos DO Work Phone: [facility] 12-23-2024 13:17-0500 Diastolic blood pressure 86 mm[Hg] Dr. Jenna Ramos DO Work Phone: [facility] 12-23-2024 13:17-0500 Heart rate 79 /min Dr. Jenna Ramos DO Work Phone: [facility] 12-23-2024 13:17-0500 Respiratory rate 18 /min Dr. Jenna Ramos DO Work Phone: [facility] 12-23-2024 13:17-0500 SaO2% (BldA) [Mass fraction] 100 % Dr. Jenna Ramos DO Work Phone: [facility] 12-23-2024 13:17-0500 Systolic blood pressure 122 mm[Hg] Dr. Jenna Ramos DO Work Phone: [facility] 12-18-2024 14:10-0500 Body mass index (BMI) [Ratio] 19.74 kg/m2 Dipti Salmon Jr., DATA SCIENCE AND IOT MANAGER.PREPARED FOODS SERVICE TEAM MEMBER Work Phone: [facility] 12-18-2024 14:10-0500 Body temperature 98.01 [degF] Dipti Salmon Jr., DATA SCIENCE AND IOT MANAGER.PREPARED FOODS SERVICE TEAM MEMBER Work Phone: [facility] 12-18-2024 14:10-0500 Body weight 53.8 kg Dipti Salmon Jr., DATA SCIENCE AND IOT MANAGER.PREPARED FOODS SERVICE TEAM MEMBER Work Phone: [facility] 12-18-2024 14:10-0500 Diastolic blood pressure 71 mm[Hg] Dipti Salmon Jr., DATA SCIENCE AND IOT MANAGER.PREPARED FOODS SERVICE TEAM MEMBER Work Phone: [facility] 12-18-2024 14:10-0500 Heart rate 103 /min Dipti Salmon Jr., DATA SCIENCE AND IOT MANAGER.PREPARED FOODS SERVICE TEAM MEMBER Work Phone: [facility] 12-18-2024 14:10-0500 Respiratory rate 17 /min Dipti Salmon Jr., DATA SCIENCE AND IOT MANAGER.PREPARED FOODS SERVICE TEAM MEMBER Work Phone: [facility] 12-18-2024 14:10-0500 SaO2% (BldA) [Mass fraction] 100 % Dipti Salmon Jr., DATA SCIENCE AND IOT MANAGER.PREPARED FOODS SERVICE TEAM MEMBER Work Phone: [facility] 12-18-2024 14:10-0500 Systolic blood pressure 105 mm[Hg] Dipti Salmon Jr., DATA SCIENCE AND IOT MANAGER.PREPARED FOODS SERVICE TEAM MEMBER Work Phone: [facility] 11-27-2024 15:35-0500 Body height 165.1 cm Makenna Gongora MD Work Phone: [facility] 11-27-2024 15:35-0500 Body mass index (BMI) [Ratio] 20.76 kg/m2 Makenna Gongora MD Work Phone: [facility] 11-27-2024 15:35-0500 Body weight 56.6 kg Makenna Gongora MD Work Phone: [facility] 11-27-2024 15:35-0500 Diastolic blood pressure 70 mm[Hg] Makenna Gongora MD Work Phone: [facility] 11-27-2024 15:35-0500 Heart rate 86 /min Makenna Gongora MD Work Phone: [facility] 11-27-2024 15:35-0500 Systolic blood pressure 101 mm[Hg] Makenna Gongora MD Work Phone: [facility] 11-26-2024 08:00-0500 Body mass index (BMI) [Ratio] 21.3 kg/m2 Dr. Jenna Ramos DO Work Phone: [facility] 11-26-2024 08:00-0500 Body temperature 98.1 [degF] Dr. Jenna Ramos DO Work Phone: [facility] 11-26-2024 08:00-0500 Body weight 56.[address] Jenna Ramos DO Work Phone: [facility] 11-26-2024 08:00-0500 Diastolic blood pressure 62 mm[Hg] Dr. Jenna Ramos DO Work Phone: [facility] 11-26-2024 08:00-0500 Heart rate 89 /min Dr. Jenna Ramos DO Work Phone: [facility] 11-26-2024 08:00-0500 Respiratory rate 12 /min Dr. Jenna Ramos DO Work Phone: [facility] 11-26-2024 08:00-0500 SaO2% (BldA) [Mass fraction] 99 % Dr. Jenna Ramos DO Work Phone: [facility] 11-26-2024 08:00-0500 Systolic blood pressure 102 mm[Hg] Dr. Jenna Ramos DO Work Phone: [facility] 11-21-2024 08:35-0500 Diastolic blood pressure 70 mm[Hg] Madison Denny PA-C Work Phone: [facility] 11-21-2024 08:35-0500 Heart rate 86 /min Madison Denny PA-C Work Phone: [facility] 11-21-2024 08:35-0500 Respiratory rate 16 /min Madison Denny PA-C Work Phone: [facility] 11-21-2024 08:35-0500 SaO2% (BldA) [Mass fraction] 100 % Madison Denny PA-C Work Phone: [facility] 11-21-2024 08:35-0500 Systolic blood pressure 101 mm[Hg] Madison Denny PA-C Work Phone: [facility] 11-05-2024 13:13-0500 Body mass index (BMI) [Ratio] 20.5 kg/m2 Dr. Jenna Ramos DO Work Phone: [facility] 11-05-2024 13:13-0500 Body weight 54.[address] Jenna Ramos DO Work Phone: [facility] 11-05-2024 13:11-0500 Body temperature 99.1 [degF] Dr. Jenna Ramos DO Work Phone: [facility] 11-05-2024 13:11-0500 Diastolic blood pressure 78 mm[Hg] Dr. Jenna Ramos DO Work Phone: [facility] 11-05-2024 13:11-0500 Heart rate 94 /min Dr. Jenna Ramos DO Work Phone: [facility] 11-05-2024 13:11-0500 Respiratory rate 18 /min Dr. Jenna Ramos DO Work Phone: [facility] 11-05-2024 13:11-0500 SaO2% (BldA) [Mass fraction] 100 % Dr. Jenna Ramos DO Work Phone: [facility] [facility] 11-05-2024 13:11-0500 Systolic blood pressure 112 mm[Hg] Dr. Jenna Ramos DO Work Phone: [facility] 10-07-2024 08:01-0500 Body mass index (BMI) [Ratio] 20.5 kg/m2 Dr. Jenna Ramos DO Work Phone: [facility] 10-07-2024 08:01-0500 Body temperature 97.1 [degF] Dr. Jenna Ramos DO Work Phone: [facility] 10-07-2024 08:01-0500 Body weight 54.[address] Jenna Ramos DO Work Phone: [facility] 10-07-2024 08:01-0500 Diastolic blood pressure 62 mm[Hg] Dr. Jenna Ramos DO Work Phone: [facility] 10-07-2024 08:01-0500 Heart rate 52 /min Dr. Jenna Ramos DO Work Phone: [facility] 10-07-2024 08:01-0500 Respiratory rate 16 /min Dr. Jenna Ramos DO Work Phone: [facility] 10-07-2024 08:01-0500 Systolic blood pressure 122 mm[Hg] Dr. Jenna Ramos DO Work Phone: [facility] 09-23-2024 10:25-0500 Body mass index (BMI) [Ratio] 19.97 kg/m2 Veto Linares DO Work Phone: [facility] 09-23-2024 10:25-0500 Body temperature 98.29 [degF] Veto Linares DO Work Phone: [facility] 09-23-2024 10:25-0500 Body weight 54.43 kg Veto Linares DO Work Phone: [facility] 09-23-2024 10:25-0500 Diastolic blood pressure 74 mm[Hg] Veto Linares DO Work Phone: [facility] 09-23-2024 10:25-0500 Heart rate 77 /min Veto Linares DO Work Phone: [facility] 09-23-2024 10:25-0500 Respiratory rate 18 /min Veto Linares DO Work Phone: [facility] 09-23-2024 10:25-0500 SaO2% (BldA) [Mass fraction] 100 % Veto Linares DO Work Phone: [facility] 09-23-2024 10:25-0500 Systolic blood pressure 99 mm[Hg] Veto Linares DO Work Phone: [facility] 08-28-2024 15:22-0500 Body height 165.1 cm Misael Wall MD Work Phone: [facility] 08-28-2024 15:22-0500 Body mass index (BMI) [Ratio] 19.97 kg/m2 Misael Wall MD Work Phone: [facility] 08-28-2024 15:22-0500 Body weight 54.43 kg Misael Wall MD Work Phone: [facility] 08-28-2024 15:22-0500 Diastolic blood pressure 81 mm[Hg] Misael Wall MD Work Phone: [facility] 08-28-2024 15:22-0500 Heart rate 77 /min Misael Wall MD Work Phone: [facility] 08-28-2024 15:22-0500 Respiratory rate 14 /min Misael Wall MD Work Phone: [facility] 08-28-2024 15:22-0500 SaO2% (BldA) [Mass fraction] 100 % Misael Wall MD Work Phone: [facility] 08-28-2024 15:22-0500 Systolic blood pressure 123 mm[Hg] Misael Wall MD Work Phone: [facility] 08-20-2024 12:59-0400 Body height 165.1 cm Makenna Gongora MD Work Phone: [facility] 08-20-2024 12:59-0400 Body mass index (BMI) [Ratio] 20.25 kg/m2 Makenna Gongora MD Work Phone: [facility] 08-20-2024 12:59-0400 Body weight 55.2 kg Makenna Gongora MD Work Phone: [facility] 08-20-2024 12:59-0400 Diastolic blood pressure 77 mm[Hg] Makenna Gongora MD Work Phone: [facility] 08-20-2024 12:59-0400 Heart rate 86 /min Makenna Gongora MD Work Phone: [facility] 08-20-2024 12:59-0400 Systolic blood pressure 110 mm[Hg] Makenna Gongora MD Work Phone: [facility] 08-16-2024 18:47-0400 Body mass index (BMI) [Ratio] 20.3 kg/m2 Adalberto Bryant MD Work Phone: [facility] 08-16-2024 18:47-0400 Body temperature 99.19 [degF] Adalberto Bryant MD Work Phone: [facility] 08-16-2024 18:47-0400 Body weight 55.34 kg Adalberto Bryant MD Work Phone: [facility] 08-16-2024 18:47-0400 Diastolic blood pressure 79 mm[Hg] Adalberto Bryant MD Work Phone: [facility] 08-16-2024 18:47-0400 Heart rate 62 /min Adalberto Bryant MD Work Phone: [facility] 08-16-2024 18:47-0400 Respiratory rate 14 /min Adalberto Bryant MD Work Phone: [facility] 08-16-2024 18:47-0400 SaO2% (BldA) [Mass fraction] 100 % Adalberto Bryant MD Work Phone: [facility] 08-16-2024 18:47-0400 Systolic blood pressure 114 mm[Hg] Adalberto Bryant MD Work Phone: [facility] 07-16-2024 08:06-0400 Body mass index (BMI) [Ratio] 20.2 kg/m2 Dwayne Mcdaniel MD Work Phone: [facility] 07-16-2024 08:06-0400 Body weight 55.07 kg Dwayne Mcdaniel MD Work Phone: [facility] 07-16-2024 08:06-0400 Diastolic blood pressure 77 mm[Hg] Dwayne Mcdaniel MD Work Phone: [facility] 07-16-2024 08:06-0400 Heart rate 98 /min Dwayne Mcdaniel MD Work Phone: [facility] 07-16-2024 08:06-0400 SaO2% (BldA) [Mass fraction] 100 % Dwayne Mcdaniel MD Work Phone: [facility] 07-16-2024 08:06-0400 Systolic blood pressure 116 mm[Hg] Dwayne Mcdaniel MD Work Phone: [facility] 06-14-2024 09:13-0400 Body height 165.1 cm Dwayne Mcdaniel MD Work Phone: [facility] 06-14-2024 09:13-0400 Body mass index (BMI) [Ratio] 20.97 kg/m2 Dwayne Mcdaniel MD Work Phone: [facility] 06-14-2024 09:13-0400 Body weight 57.15 kg Dwayne Mcadniel MD Work Phone: [facility] 06-14-2024 09:13-0400 Diastolic blood pressure 64 mm[Hg] Dwayne Mcdaniel MD Work Phone: [facility] 06-14-2024 09:13-0400 Heart rate 90 /min Dwayne Mcdaniel MD Work Phone: [facility] 06-14-2024 09:13-0400 SaO2% (BldA) [Mass fraction] 98 % Dwayne Mcdaniel MD Work Phone: [facility] 06-14-2024 09:13-0400 Systolic blood pressure 98 mm[Hg] Dwayne Mcdaniel MD Work Phone: [facility] 06-11-2024 10:26-0400 Diastolic blood pressure 64 mm[Hg] Misael Wall MD Work Phone: [facility] 06-11-2024 10:26-0400 Heart rate 79 /min Misael Wall MD Work Phone: [facility] 06-11-2024 10:26-0400 Respiratory rate 16 /min Misael Wall MD Work Phone: [facility] 06-11-2024 10:26-0400 SaO2% (BldA) [Mass fraction] 100 % Misael Wall MD Work Phone: [facility] 06-11-2024 10:26-0400 Systolic blood pressure 96 mm[Hg] Misael Wall MD Work Phone: [facility] 06-05-2024 08:24-0400 Body height 165.1 cm Rosalina Hilton APRN.[employer] MEMBER Work Phone: [facility] 06-05-2024 08:24-0400 Body mass index (BMI) [Ratio] 19.8 kg/m2 Rosalina Hilton APRN.CNP Work Phone: [facility] 06-05-2024 08:24-0400 Body weight 53.98 kg Rosalina Hilton DATA SCIENCE AND IOT MANAGER.[employer] TEAM MEMBER Work Phone: [facility] 06-05-2024 08:24-0400 Diastolic blood pressure 68 mm[Hg] Rosalina Hilton DATA SCIENCE AND IOT MANAGER.[employer]ICE TEAM MEMBER Work Phone: [facility] 06-05-2024 08:24-0400 Heart rate 94 /min Rosalinara Hilton DATA SCIENCE AND IOT MANAGER.[employer]ICE TEAM MEMBER Work Phone: [facility] 06-05-2024 08:24-0400 SaO2% (BldA) [Mass fraction] 100 % Rosalinara Hilton DATA SCIENCE AND IOT MANAGER.[employer] SERVICE TEAM MEMBER Work Phone: [facility] 06-05-2024 08:24-0400 Systolic blood pressure 94 mm[Hg] Rosalina Hilton DATA SCIENCE AND IOT MANAGER.[employer]ICE TEAM MEMBER Work Phone: [facility] 05-27-2024 14:32-0400 Body height 165.1 cm Madison GRISSOM-C Work Phone: [facility] 05-27-2024 14:32-0400 Body mass index (BMI) [Ratio] 20.3 kg/m2 Madison GRISSOM-C Work Phone: [facility] 05-27-2024 14:32-0400 Body temperature 97.7 [degF] Madison GRISSOM-C Work Phone: [facility] 05-27-2024 14:32-0400 Body weight 55.34 kg Madison GRISSOM-C Work Phone: [facility] 05-27-2024 14:32-0400 Diastolic blood pressure 70 mm[Hg] Madison GRISSOM-C Work Phone: [facility] 05-27-2024 14:32-0400 Heart rate 84 /min Madison GRISSOM-C Work Phone: [facility] 05-27-2024 14:32-0400 Respiratory rate 16 /min Madison Denny PA-C Work Phone: [facility] 05-27-2024 14:32-0400 SaO2% (BldA) [Mass fraction] 96 % Madison Denny PA-C Work Phone: [facility] 05-27-2024 14:32-0400 Systolic blood pressure 102 mm[Hg] Madison Denny PA-C Work Phone: [facility] 05-07-2024 07:10-0400 Body height 165.1 cm Rosalina Hilton DATA SCIENCE AND IOT MANAGER.[employer] TE[employer] MEMBER Work Phone: [facility] 05-07-2024 07:10-0400 Body mass index (BMI) [Ratio] 20.24 kg/m2 Rosalina Yobani DATA SCIENCE AND IOT MANAGER.[employer] TEAM MEMBER Work Phone: [facility] 05-07-2024 07:10-0400 Body weight 55.16 kg Rosalina Hilton DATA SCIENCE AND IOT MANAGER.[employer]ICE TEAM MEMBER Work Phone: [facility] 05-07-2024 07:10-0400 Diastolic blood pressure 70 mm[Hg] Rosalina Hilton DATA SCIENCE AND IOT MANAGER.[employer]ICE TEAM MEMBER Work Phone: [facility] 05-07-2024 07:10-0400 Heart rate 79 /min Rosalina Hilton DATA SCIENCE AND IOT MANAGER.[employer]ICE TE[employer] MEMBER Work Phone: [facility] 05-07-2024 07:10-0400 SaO2% (BldA) [Mass fraction] 100 % Rosalina Hilton DATA SCIENCE AND IOT MANAGER.[employer]ICE TEAM MEMBER Work Phone: [facility] 05-07-2024 07:10-0400 Systolic blood pressure 102 mm[Hg] Rosalina Hilton DATA SCIENCE AND IOT MANAGER.[employer]ICE TEAM MEMBER Work Phone: [facility] 04-29-2024 10:59-0400 Body mass index (BMI) [Ratio] 20.14 kg/m2 Gretta Izquierdo DATA SCIENCE AND IOT MANAGER.[employer]ICE TEAM MEMBER Work Phone: [facility] 04-29-2024 10:59-0400 Body temperature 98.29 [degF] Gretta Kaiser-Cassie DATA SCIENCE AND IOT MANAGER.[employer] TEAM MEMBER Work Phone: [facility] 04-29-2024 10:59-0400 Body weight 54.88 kg Gretta Izquierdo DATA SCIENCE AND IOT MANAGER.[employer]ICE TEAM MEMBER Work Phone: [facility] 04-29-2024 10:59-0400 Diastolic blood pressure 72 mm[Hg] Gretta Job-Oles DATA SCIENCE AND IOT MANAGER.[employer]ICE TEAM MEMBER Work Phone: [facility] 04-29-2024 10:59-0400 Heart rate 72 /min Gretta Kaiser-Oles DATA SCIENCE AND IOT MANAGER.[employer]ICE TEAM MEMBER Work Phone: [facility] 04-29-2024 10:59-0400 Respiratory rate 18 /min Gretta Kaiser-Oles DATA SCIENCE AND IOT MANAGER.[employer]ICE TEAM MEMBER Work Phone: [facility] 04-29-2024 10:59-0400 SaO2% (BldA) [Mass fraction] 100 % Gretta Job-Oles DATA SCIENCE AND IOT MANAGER.[employer]ICE TEAM MEMBER Work Phone: [facility] 04-29-2024 10:59-0400 Systolic blood pressure 114 mm[Hg] Gretta Kaiser-Kolbys DATA SCIENCE AND IOT MANAGER.[employer] TEAM MEMBER Work Phone: [facility] 04-02-2024 14:26-0400 Body height 165.1 cm Levi Carlton PA-C Work Phone: [facility] 04-02-2024 14:26-0400 Body mass index (BMI) [Ratio] 21.43 kg/m2 Levi Carlton PA-C Work Phone: [facility] 04-02-2024 14:26-0400 Body temperature 98.29 [degF] Levi Cralton PA-C Work Phone: [facility] 04-02-2024 14:26-0400 Body weight 58.42 kg Levi Carltno PA-C Work Phone: [facility] 04-02-2024 14:26-0400 Diastolic blood pressure 73 mm[Hg] Levi Carlton PA-C Work Phone: [facility] 04-02-2024 14:26-0400 Heart rate 70 /min Levi Carlton PA-C Work Phone: [facility] 04-02-2024 14:26-0400 Respiratory rate 16 /min Levi Carlton PA-C Work Phone: [facility] 04-02-2024 14:26-0400 SaO2% (BldA) [Mass fraction] 99 % Levi GRISSOM-C Work Phone: [facility] 04-02-2024 14:26-0400 Systolic blood pressure 117 mm[Hg] Levi GRISSOM-C Work Phone: [facility] 02-06-2024 08:43-0400 Body temperature 98.8 [degF] Raymond Cardenas APRN.[employer] TE[employer] MEMBER Work Phone: [facility] 02-06-2024 08:43-0400 Body weight 55.34 kg Raymond Cardenas APRN.[employer] TE[employer] MEMBER Work Phone: [facility] 02-06-2024 08:43-0400 Diastolic blood pressure 67 mm[Hg] Raymond Cardenas APRN.[employer]ICE TEAM MEMBER Work Phone: [facility] 02-06-2024 08:43-0400 Heart rate 99 /min Raymond Cardenas APRN.[employer]ICE TE[employer] MEMBER Work Phone: [facility] 02-06-2024 08:43-0400 Respiratory rate 20 /min Raymond Cardenas APRN.[employer]ICE TEAM MEMBER Work Phone: [facility] 02-06-2024 08:43-0400 SaO2% (BldA) [Mass fraction] 100 % Raymond Cardenas APRN.[employer]ICE TEAM MEMBER Work Phone: [facility] 02-06-2024 08:43-0400 Systolic blood pressure 94 mm[Hg] Raymond Cardenas APRN.[employer] TE[employer] MEMBER Work Phone: [facility] 07-26-2023 13:03-0400 Body temperature 98.6 [degF] No Primary Care Physician [facility] 07-26-2023 13:03-0400 Body weight 56.69 kg No Primary Care Physician [facility] 07-26-2023 13:03-0400 Diastolic blood pressure 64 mm[Hg] No Primary Care Physician [facility] 07-26-2023 13:03-0400 Heart rate 75 /min No Primary Care Physician [facility] 07-26-2023 13:03-0400 Respiratory rate 16 /min No Primary Care Physician [facility] 07-26-2023 13:03-0400 SaO2% (BldA) [Mass fraction] 100 % No Primary Care Physician [facility] 07-26-2023 13:03-0400 Systolic blood pressure 101 mm[Hg] No Primary Care Physician [facility] 07-11-2023 08:21-0400 Body height 162.56 cm No Primary Care Physician [facility] 07-11-2023 08:21-0400 Body temperature 98.6 [degF] No Primary Care Physician [facility] 07-11-2023 08:21-0400 Diastolic blood pressure 66 mm[Hg] No Primary Care Physician [facility] 07-11-2023 08:21-0400 Heart rate 84 /min No Primary Care Physician [facility] 07-11-2023 08:21-0400 Respiratory rate 18 /min No Primary Care Physician [facility] 07-11-2023 08:21-0400 SaO2% (BldA) [Mass fraction] 100 % No Primary Care Physician [facility] 07-11-2023 08:21-0400 Systolic blood pressure 95 mm[Hg] No Primary Care Physician [facility] 07-06-2023 11:33-0400 Body temperature 98.4 [degF] No Primary Care Physician [facility] 07-06-2023 11:33-0400 Body weight 56.69 kg No Primary Care Physician [facility] 07-06-2023 11:33-0400 Diastolic blood pressure 65 mm[Hg] No Primary Care Physician [facility] 07-06-2023 11:33-0400 Heart rate 78 /min No Primary Care Physician [facility] 07-06-2023 11:33-0400 Respiratory rate 16 /min No Primary Care Physician [facility] 07-06-2023 11:33-0400 SaO2% (BldA) [Mass fraction] 100 % No Primary Care Physician [facility] 07-06-2023 11:33-0400 Systolic blood pressure 97 mm[Hg] No Primary Care Physician [facility] 06-28-2023 07:27-0400 Body height 162.56 cm No Primary Care Physician [facility] 06-28-2023 07:27-0400 Body mass index (BMI) [Ratio] 21.2 kg/m2 No Primary Care Physician [facility] 06-28-2023 07:27-0400 Body weight 56.24 kg No Primary Care Physician [facility] 06-22-2023 13:21-0400 Body height 165.1 cm Raymond Cardenas APRN.CNP Work Phone: [facility] 06-22-2023 13:21-0400 Body temperature 98.8 [degF] Raymond Cardenas APRN.[employer] TE[employer] MEMBER Work Phone: [facility] 06-22-2023 13:21-0400 Body weight 57.15 kg Raymond Cardenas APRN.[employer]ICE TEAM MEMBER Work Phone: [facility] 06-22-2023 13:21-0400 Diastolic blood pressure 78 mm[Hg] Raymond Cardenas APRN.[employer] SERVICE TEAM MEMBER Work Phone: [facility] 06-22-2023 13:21-0400 Heart rate 86 /min Raymond Cardenas APRN.[employer]ICE TEAM MEMBER Work Phone: [facility] 06-22-2023 13:21-0400 SaO2% (BldA) [Mass fraction] 96 % Raymond Cardenas APRN.[employer]ICE TEAM MEMBER Work Phone: [facility] 06-22-2023 13:21-0400 Systolic blood pressure 120 mm[Hg] Raymond Cardenas APRN.[employer]ICE TEAM MEMBER Work Phone: [facility] 05-24-2023 14:24-0400 Body temperature 98.6 [degF] No Primary Care Physician [facility] 05-24-2023 14:24-0400 Body weight 57.6 kg No Primary Care Physician [facility] 05-24-2023 14:24-0400 Diastolic blood pressure 69 mm[Hg] No Primary Care Physician [facility] 05-24-2023 14:24-0400 Heart rate 95 /min No Primary Care Physician [facility] 05-24-2023 14:24-0400 Respiratory rate 16 /min No Primary Care Physician [facility] 05-24-2023 14:24-0400 SaO2% (BldA) [Mass fraction] 98 % No Primary Care Physician [facility] 05-24-2023 14:24-0400 Systolic blood pressure 96 mm[Hg] No Primary Care Physician [facility] 05-19-2023 14:00-0400 Body weight 58.06 kg Rosalina Yobani DATA SCIENCE AND [employer]OT MANAGER.[employer] TEAM MEMBER Work Phone: [facility] 05-19-2023 14:00-0400 Diastolic blood pressure 65 mm[Hg] Rosalina Yobani DATA SCIENCE AND IOT MANAGER.[employer]ICE TEAM MEMBER Work Phone: [facility] 05-19-2023 14:00-0400 Heart rate 88 /min Rosalina Yobani DATA SCIENCE AND IOT MANAGER.[employer] SERVICE TEAM MEMBER Work Phone: [facility] 05-19-2023 14:00-0400 SaO2% (BldA) [Mass fraction] 98 % Rosalina Yobani DATA SCIENCE AND IOT MANAGER.[employer] SERVICE TEAM MEMBER Work Phone: [facility] 05-19-2023 14:00-0400 Systolic blood pressure 94 mm[Hg] Rosalina Yobani DATA SCIENCE AND IOT MANAGER.PRE[employer] SERVICE TEAM MEMBER Work Phone: [facility] 05-19-2023 13:01-0400 Body height 165.1 cm Rosalina Yobani DATA SCIENCE AND IOT MANAGER.PRE[employer] SERVICE TEAM MEMBER Work Phone: [facility] 05-18-2023 09:20-0400 Body height 165.1 cm Madison GRISSOM-C Work Phone: [facility] 05-18-2023 09:20-0400 Body temperature 98.4 [degF] Madison GRISSOM-C Work Phone: [facility] 05-18-2023 09:20-0400 Body weight 55.34 kg Madison GRISSOM-C Work Phone: [facility] 05-18-2023 09:20-0400 Diastolic blood pressure 59 mm[Hg] Madison GRISSOM-C Work Phone: [facility] 05-18-2023 09:20-0400 Heart rate 82 /min Madison GRISSOM-C Work Phone: [facility] 05-18-2023 09:20-0400 SaO2% (BldA) [Mass fraction] 100 % Madison Denny PA-C Work Phone: [facility] 05-18-2023 09:20-0400 Systolic blood pressure 90 mm[Hg] Madison Denny PA-C Work Phone: [facility] 02-06-2023 13:17-0400 Body temperature 98.8 [degF] Fab Carlton PA-C Work Phone: [facility] 02-06-2023 13:17-0400 Diastolic blood pressure 82 mm[Hg] Fab Sparkman PA-C Work Phone: [facility] 02-06-2023 13:17-0400 Heart rate 83 /min Fab Sparkman PA-C Work Phone: [facility] 02-06-2023 13:17-0400 SaO2% (BldA) [Mass fraction] 99 % Fab Sparkman PA-C Work Phone: [facility] 02-06-2023 13:17-0400 Systolic blood pressure 110 mm[Hg] Fab Sparkman PA-C Work Phone: [facility] 01-16-2023 13:30-0400 Body temperature 97.2 [degF] Lukasz Woodward MD Work Phone: [facility] 01-16-2023 13:30-0400 Diastolic blood pressure 59 mm[Hg] Lukasz Woodward MD Work Phone: [facility] 01-16-2023 13:30-0400 Heart rate 72 /min Lukasz Woodward MD Work Phone: [facility] 01-16-2023 13:30-0400 Respiratory rate 16 /min Lukasz Woodward MD Work Phone: [facility] 01-16-2023 13:30-0400 SaO2% (BldA) [Mass fraction] 100 % Lukasz Woodward MD Work Phone: [facility] 01-16-2023 13:30-0400 Systolic blood pressure 104 mm[Hg] Lukasz Woodward MD Work Phone: [facility] 01-16-2023 11:01-0400 Body height 165.1 cm Lukasz Woodward MD Work Phone: [facility] 01-16-2023 11:01-0400 Body weight 55.79 kg Lukasz Woodward MD Work Phone: [facility] 11-18-2022 10:11-0500 Body temperature 97.9 [degF] Madison Denny PA-C Work Phone: [facility] 11-18-2022 10:11-0500 Diastolic blood pressure 74 mm[Hg] Madison Denny PA-C Work Phone: [facility] 11-18-2022 10:11-0500 Heart rate 84 /min Madison Denny PA-C Work Phone: [facility] 11-18-2022 10:11-0500 Respiratory rate 18 /min Madison Denny PA-C Work Phone: [facility] 11-18-2022 10:11-0500 SaO2% (BldA) [Mass fraction] 98 % Madison Denny PA-C Work Phone: [facility] 11-18-2022 10:11-0500 Systolic blood pressure 109 mm[Hg] Madison Denny PA-C Work Phone: [facility] 11-09-2022 14:32-0500 Body height 165.1 cm Medhat Denny MD Work Phone: [facility] 11-09-2022 14:32-0500 Body temperature 98.1 [degF] Medhat Denny MD Work Phone: [facility] 11-09-2022 14:32-0500 Body weight 55.88 kg Medhat Denny MD Work Phone: [facility] 11-09-2022 14:32-0500 Diastolic blood pressure 71 mm[Hg] Medhat Denny MD Work Phone: [facility] [facility] 11-09-2022 14:32-0500 Heart rate 80 /min Medhat Denny MD Work Phone: [facility] 11-09-2022 14:32-0500 Respiratory rate 20 /min Medhat Denny MD Work Phone: [facility] 11-09-2022 14:32-0500 Systolic blood pressure 115 mm[Hg] Medhat Denny MD Work Phone: [facility] 11-04-2022 08:54-0500 Body temperature 97.81 [degF] Raymond Cardenas APRN.PREPARED FOODS SERVICE TEAM MEMBER Work Phone: [facility] 11-04-2022 08:54-0500 Body weight 55.34 kg Raymond Cardenas APRN.PREPARED FOODS SERVICE TEAM MEMBER Work Phone: [facility] 11-04-2022 08:54-0500 Diastolic blood pressure 70 mm[Hg] Raymond Cardenas APRN.PREPARED FOODS SERVICE TEAM MEMBER Work Phone: [facility] 11-04-2022 08:54-0500 Heart rate 91 /min Raymond Cardenas APRN.PREPARED FOODS SERVICE TEAM MEMBER Work Phone: [facility] 11-04-2022 08:54-0500 SaO2% (BldA) [Mass fraction] 100 % Raymond Cardenas APRN.PREPARED FOODS SERVICE TEAM MEMBER Work Phone: [facility] 11-04-2022 08:54-0500 Systolic blood pressure 106 mm[Hg] Raymond Cardenas APRN.PREPARED FOODS SERVICE TEAM MEMBER Work Phone: [facility] 11-02-2022 08:42-0500 Body height 165.1 cm Fab Sparkman PA-C Work Phone: [facility] 11-02-2022 08:42-0500 Body temperature 98.2 [degF] Fab Carlton PA-C Work Phone: [facility] 11-02-2022 08:42-0500 Body weight 55.7 kg Fab Carlton PA-C Work Phone: [facility] 11-02-2022 08:42-0500 Diastolic blood pressure 58 mm[Hg] Fab Carlton PA-C Work Phone: [facility] 11-02-2022 08:42-0500 Heart rate 104 /min Fab Sparkman PA-C Work Phone: [facility] 11-02-2022 08:42-0500 SaO2% (BldA) [Mass fraction] 100 % Fabmomo Willoughbyf PA-C Work Phone: [facility] 11-02-2022 08:42-0500 Systolic blood pressure 98 mm[Hg] Fab Sparkman PA-C Work Phone: [facility] 10-21-2022 13:41-0500 Body height 165.1 cm Bebeto Soliman APRN.PREPARED FOODS SERVICE TEAM MEMBER Work Phone: [facility] 10-21-2022 13:41-0500 Body weight 56.06 kg Bebeto Soliman APRN.PREPARED FOODS SERVICE TEAM MEMBER Work Phone: [facility] 10-21-2022 13:41-0500 Diastolic blood pressure 71 mm[Hg] Bebeto Soliman APRN.PREPARED FOODS SERVICE TEAM MEMBER Work Phone: [facility] 10-21-2022 13:41-0500 Heart rate 89 /min Bebeto Soliman APRN.PREPARED FOODS SERVICE TEAM MEMBER Work Phone: [facility] 10-21-2022 13:41-0500 SaO2% (BldA) [Mass fraction] 100 % Bebeto Soliman APRN.PREPARED FOODS SERVICE TEAM MEMBER Work Phone: [facility] 10-21-2022 13:41-0500 Systolic blood pressure 107 mm[Hg] Bebeto Soliman APRN.PREPARED FOODS SERVICE TEAM MEMBER Work Phone: [facility] 08-02-2022 09:02-0400 Body height 165.1 cm Bebeto Soliman APRN.PREPARED FOODS SERVICE TEAM MEMBER Work Phone: [facility] 08-02-2022 09:02-0400 Body temperature 98.01 [degF] Bebeto Soliman APRN.PREPARED FOODS SERVICE TEAM MEMBER Work Phone: [facility] 08-02-2022 09:02-0400 Body weight 56.02 kg Bebeto Soliman APRN.PREPARED FOODS SERVICE TEAM MEMBER Work Phone: [facility] 08-02-2022 09:02-0400 Diastolic blood pressure 72 mm[Hg] Bebeto Soliman APRN.PREPARED FOODS SERVICE TEAM MEMBER Work Phone: [facility] 08-02-2022 09:02-0400 Heart rate 80 /min Bebeto Soliman APRN.PREPARED FOODS SERVICE TEAM MEMBER Work Phone: [facility] 08-02-2022 09:02-0400 SaO2% (BldA) [Mass fraction] 100 % Bebeto Soliman DATA SCIENCE AND IOT MANAGER.PREPARED FOODS SERVICE TEAM MEMBER Work Phone: [facility] 08-02-2022 09:02-0400 Systolic blood pressure 106 mm[Hg] Beebto Soliman APRN.PREPARED FOODS SERVICE TEAM MEMBER Work Phone: [facility] 06-15-2022 13:22-0400 Body height 165.1 cm Madison Denny PA-C Work Phone: [facility] 06-15-2022 13:22-0400 Body temperature 97.3 [degF] Madison Denny PA-C Work Phone: [facility] 06-15-2022 13:22-0400 Body weight 56.25 kg Madison Denny PA-C Work Phone: [facility] 06-15-2022 13:22-0400 Diastolic blood pressure 79 mm[Hg] Madison Denny PA-C Work Phone: [facility] 06-15-2022 13:22-0400 Heart rate 77 /min Madison Denny PA-C Work Phone: [facility] 06-15-2022 13:22-0400 Respiratory rate 20 /min Madison Denny PA-C Work Phone: [facility] 06-15-2022 13:22-0400 SaO2% (BldA) [Mass fraction] 98 % Madison Denny PA-C Work Phone: [facility] 06-15-2022 13:22-0400 Systolic blood pressure 127 mm[Hg] Madison Denny PA-C Work Phone: [facility] 05-03-2022 07:04-0400 Body height 162.6 cm Medhat Denny MD Work Phone: [facility] 05-03-2022 07:04-0400 Body temperature 98.6 [degF] Medhat Denny MD Work Phone: [facility] 05-03-2022 07:04-0400 Body weight 57.34 kg Medhat Denny MD Work Phone: [facility] 05-03-2022 07:04-0400 Diastolic blood pressure 62 mm[Hg] Medhat Denny MD Work Phone: [facility] 05-03-2022 07:04-0400 Heart rate 90 /min Medhat Denny MD Work Phone: [facility] 05-03-2022 07:04-0400 Respiratory rate 12 /min Medhat Denny MD Work Phone: [facility] 05-03-2022 07:04-0400 Systolic blood pressure 91 mm[Hg] Medhat Denny MD Work Phone: [facility] 03-23-2022 08:34-0400 Body height 162.6 cm Medhat Denny MD Work Phone: [facility] 03-23-2022 08:34-0400 Body temperature 97.81 [degF] Medhat Denny MD Work Phone: [facility] 03-23-2022 08:34-0400 Body weight 56.52 kg Medhat Denny MD Work Phone: [facility] 03-23-2022 08:34-0400 Diastolic blood pressure 70 mm[Hg] Medhat Denny MD Work Phone: [facility] 03-23-2022 08:34-0400 Heart rate 92 /min Medhat Denny MD Work Phone: [facility] 03-23-2022 08:34-0400 Respiratory rate 12 /min Medhat Denny MD Work Phone: [facility] 03-23-2022 08:34-0400 Systolic blood pressure 100 mm[Hg] Medhat Denny MD Work Phone: [facility] 02-24-2022 11:20-0400 Body weight 59 kg Nurse Schedule Maker Work Phone: [facility] 02-24-2022 11:20-0400 Diastolic blood pressure 61 mm[Hg] Nurse Schedule Maker Work Phone: [facility] 02-24-2022 11:20-0400 Systolic blood pressure 101 mm[Hg] Nurse Schedule Maker Work Phone: [facility] 02-24-2022 08:53-0400 Body height 162.6 cm Pacc 6 Work Phone: [facility] 02-24-2022 08:53-0400 Body temperature 98.1 [degF] Pacc 6 Work Phone: [facility] 02-24-2022 08:53-0400 Body weight 58.97 kg Pacc 6 Work Phone: [facility] 02-24-2022 08:53-0400 Diastolic blood pressure 61 mm[Hg] Pacc 6 Work Phone: [facility] 02-24-2022 08:53-0400 Heart rate 93 /min Pacc 6 Work Phone: [facility] 02-24-2022 08:53-0400 SaO2% (BldA) [Mass fraction] 100 % Pacc 6 Work Phone: [facility] 02-24-2022 08:53-0400 Systolic blood pressure 101 mm[Hg] Pacc 6 Work Phone: [facility] 02-21-2022 09:58-0400 Body height 162.6 cm Julio Barker MD Work Phone: [facility] 02-21-2022 09:58-0400 Body weight 56.25 kg Julio Barker MD Work Phone: [facility] 02-21-2022 09:58-0400 Diastolic blood pressure 63 mm[Hg] Julio Barker MD Work Phone: [facility] 02-21-2022 09:58-0400 Heart rate 84 /min Julio Barker MD Work Phone: [facility] 02-21-2022 09:58-0400 SaO2% (BldA) [Mass fraction] 100 % Julio Barker MD Work Phone: [facility] 02-21-2022 09:58-0400 Systolic blood pressure 102 mm[Hg] Julio Barker MD Work Phone: [facility] Encounters Encounter Date Encounter Type Care Provider Facility Start: 05-21-2025 End: 05-21-2025 ambulatory [facility] Facility:[id number] Start: 04-09-2025 End: 04-09-2025 Office outpatient visit 15 minutes Libby Wang APRN.PREPARED FOODS SERVICE TEAM MEMBER Work Phone: [facility] Comment on above: Dysuria (Primary Dx) ; Urinary problem; Acute non-recurrent maxillary sinusitis Start: 04-09-2025 End: 04-09-2025 ambulatory SELF Facility:[id number] Start: 02-20-2025 End: 02-20-2025 ambulatory SELF Facility:[id number] Start: 02-20-2025 End: 02-20-2025 Patient encounter procedure Dipti Salmon APRN.PREPARED FOODS SERVICE TEAM MEMBER Work Phone: [facility] Comment on above: Bacterial sinusitis (Primary Dx); Headache, unspecified headache type; Nausea Start: 01-16-2025 End: 01-16-2025 Telemedicine consultation with patient Makenna Gongora MD Work Phone: Neurology Start: 01-16-2025 End: 01-16-2025 ambulatory Makenna Gongora MD Work Phone: Neurology Comment on above: Migraine without aur a, not intractable, without status migrainosus Start: 12-25-2024 End: 12-25-[address] Jenna Ramos DO Work Phone: [facility] Work Phone: Start: 12-25-2024 End: 12-25-2024 Patient encounter procedure Carline HOYOS -[facility] Work Phone: Start: 12-25-2024 End: 12-25-2024 ambulatory [facility] Facility:[facility] Start: 12-23-2024 End: 12-23-2024 Patient encounter procedure Carline Troy GAN-C -[facility] Work Phone: Start: 12-23-2024 End: 12-23-2024 ambulatory [facility] Facility:[facility] Start: 12-18-2024 End: 12-18-2024 Patient encounter procedure Dipti Salmon DATA SCIENCE AND IOT MANAGER.PREPARED FOODS SERVICE TEAM MEMBER Work Phone: [facility] Comment on above: Bacterial sinusitis (Primary Dx) Start: 12-18-2024 End: 12-18-2024 ambulatory [facility] Facility:[id number] Start: 12-11-2024 ambulatory [facility] Facility :[facility] Start: 12-09-2024 End: 12-09-[address] Ivone Palm MD -Laboratory, Specimen Work Phone: Start: 12-09-2024 End: 12-09-2024 ambulatory Ivonechelsi Sidhulay Facility:[facility] Start: 11-27-2024 End: 11-27-2024 Patient encounter procedure Makenna Gongora MD Work Phone: Neurology Comment on above: Chronic daily headac he (Primary Dx); Migraine without aura and without status migrainosus, not intractable; Cervicalgia Start: 11-27-2024 End: 11-27-2024 ambulatory MAKENNA GONGORA Facility:[facility] Start: 11-26-2024 End: 11-26-[address] Ivone Palm MD -[facility] Work Phone: Start: 11-26-2024 End: 11-26-2024 ambulatory Ivone Palm Facility:[facility] Start: 11-21-2024 End: 11-21-2024 Patient encounter procedure Madison Denny PA-C Work Phone: Pain Management Comment on above: Myofascial pain synd bob (Primary Dx); Neck pain; Sacroiliitis (HCC); Other migraine without status migrainosus, not intractable Start: 11-21-2024 End: 11-21-2024 ambulatory MADISON DENNY Facility:[id number] Start: 11-11-[address] Raymond Dias MD -[facility] Start: 11-11-2024 ambulatory Jennaderek Ramos Facility: [facility] Start: 11-05-2024 End: 11-05-[address] Raymond Dias MD -[facility] Work Phone: Start: 11-05-2024 End: 11-05-2024 ambulatory Jenna Rachel Facility:[facility] Start: 10-29-2024 End: 10-29-2024 Telephone encounter Dwayne Mcdaniel MD Work Phone: [facility] Start: 10-26-2024 End: 10-26-2024 ambulatory JENNA CARPENTERJOHN Facility:[id number] Start: 10-07-2024 End: 10-07-2024 ambulatory Jenna Carpenterub Facility:[facility] Start: 10-07-2024 End: 10-07-[address] Ivone Palm MD -[facility] Work Phone: Start: 09-23-2024 ambulatory VETO LINARES Facili ty:[id number] Start: 09-23-2024 End: 09-23-2024 Subsequent hospital visit by physician Carlos Amin Work Phone: [facility] Comment on above: Respiratory illness with fever [J98.9, R50.9] Start: 09-23-2024 End: 09-23-2024 ambulatory JENNA CARPENTERJOHN Facility:[id number] Start: 09-23-2024 End: 09-23-2024 Patient encounter procedure Veto Linares DO Work Phone: [facility] Comment on above: Respiratory illness with fever (Primary Dx) Start: 09-07-2024 End: 09-07-2024 ambulatory [facility] Facility:[id number] Start: 09-05-2024 End: 09-05-2024 Refill Gris Weaver EMANUEL Work Phone: [facility] Comment on above: Refill Request Start: 08-28-2024 End: 08-28-2024 Office outpatient visit 25 minutes Misael Wall MD Work Phone: Pain Management Comment on above: Myofascial pain synd bob (Primary Dx); Chronic pain syndrome; Neck pain; Other migraine without status migrainosus, not intractable Start: 08-28-2024 End: 08-28-2024 Follow-up encounter Micha Klein RN Work Phone: [facility] Comment on above: ED Follow Up ([facility] 1 10/25/23 Fall, migraine) Start: 08-28-2024 End: 08-28-2024 ambulatory Micha Klein RN Work Phone: [facility] Start: 08-27-2024 End: 08-27-2024 ambulatory [facility] Facility:[facility] Start: 08-25-2024 End: 08-25-2024 Emergency department patient visit DWAYNE MCDANIEL Facility:[id number] Start: 08-22-2024 End: 08-23-2024 ambulatory [facility] Facility:[facility] Start: 08-22-2024 End: 08-22-2024 Subsequent hospital visit by physician [facility] 3 Work Phone: Radiology CT Scan Comment on above: Chronic sinusitis, u nspecified [J32.9] Start: 08-20-2024 End: 08-20-2024 Patient encounter procedure Makenna Gongora MD Work Phone: Neurology Comment on above: Medication overuse h eadache (Primary Dx); Chronic daily headache; Chronic migraine without aura without status migrainosus, not intractable Start: 08-20-2024 End: 08-20-2024 ambulatory MAKENNA GONGORA Facility:[facility] Start: 08-16-2024 End: 08-16-2024 Patient encounter procedure Adalberto Bryant MD Work Phone: [facility] Comment on above: Acute non-recurrent maxillary sinusitis (Primary Dx) Start: 08-16-2024 End: 08-16-2024 ambulatory EMILIESE MCDANIEL Facility:[id number] Start: 08-14-2024 End: 08-14-2024 ambulatory Jenna Ramos Facility:[facility] Start: 07-31-2024 ambulatory [facility] Start: 07-31-2024 End: 07-31-2024 ambulatory [facility] Facility:[facility] Start: 07-25-2024 [facility] Start: 07-24-2024 End: 07-24-2024 Telephone encounter Dwayne Mcdaniel MD Work Phone: [facility] Start: 07-24-2024 End: 07-25-2024 ambulatory DWAYNE MCDANIEL Facility:[id number] Start: 07-24-2024 End: 07-24-2024 Subsequent hospital visit by physician [facility] Comment on above: Acquired hypothyroid ism [E03.9] Start: 07-17-2024 End: 07-17-2024 Telephone encounter Dwayne Mcdaniel MD Work Phone: [facility] Comment on above: Referral Information (Rheum and Hemotology) Start: 07-16-2024 End: 07-16-2024 Telephone encounter Dwayne Mcdaniel MD Work Phone: [facility] Start: 07-16-2024 End: 07-16-2024 ambulatory DWAYNE MCDANIEL Facility:[id number] Start: 07-16-2024 End: 07-16-2024 Office outpatient visit 25 minutes Dwayne Mcdaniel MD Work Phone: [facility] Comment on above: Hair thinning (Prima ry Dx); Migraine with aura and without status migrainosus, not intractable; Brittle nails; Hair loss; Acquired hypothyroidism; 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; H/O protein C deficiency; H/O protein S deficiency; Encounter for immunization; Bacterial sinusitis Start: 07-11-2024 ambulatory Tiara Sue Facility:[facility] Start: 07-05-2024 End: 07-05-2024 ambulatory [facility] Facility:[facility] Start: 07-03-2024 End: 07-03-2024 Telephone encounter Dwayne Mcdaniel MD Work Phone: [facility] Start: 07-02-2024 End: 07-02-2024 ambulatory DWAYNE MCDANIEL Facility:[id number] Start: 06-26-2024 ambulatory [facility] Start: 06-26-2024 End: 06-26-2024 ambulatory [facility] Facility:[facility] Start: 06-17-2024 End: 06-17-2024 Telephone encounter Dwayne Mcdaniel MD Work Phone: [facility] Comment on above: Referral Information (Ortho, Ent, Derm ) Start: 06-14-2024 End: 06-14-2024 Office outpatient visit 25 minutes Dwayne Mcdaniel MD Work Phone: [facility] Comment on above: Hypothyroidism, unsp ecified type (Primary Dx); Encounter for screening mammogram for breast cancer; Acute right-sided low back pain with right-sided sciatica; Other migraine without status migrainosus, not intractable; Adjustment disorder with mixed anxiety and depressed mood; Headaches; Malignant melanoma, unspecified site (HCC); Chronic pain syndrome; Arthralgia, unspecified joint; Low serum potassium Start: 06-14-2024 End: 06-14-2024 ambulatory ROSALINA A YOBANI Facility:[id number] Start: 06-11-2024 ambulatory MISAEL Maciel ty:[id number] Start: 06-11-2024 End: 06-11-2024 Subsequent hospital visit by physician Misael Wall MD Work Phone: [facility] Comment on above: Myofascial pain synd bob [M79.18] Start: 06-07-2024 End: 06-10-2024 Telephone encounter Misael Wall MD Work Phone: [facility] Comment on above: Change in time for A ugust 20 procedure Start: 06-05-2024 Telephone encounter Rosalina saucedo DATA SCIENCE AND IOT MANAGER.PREPARED FOODS SERVICE TEAM MEMBER Work Phone: [facility] Comment on above: Referral Information (ENT) requesting call Start: 06-05-2024 ambulatory MADISON DENNY Facility: [id number] Start: 06-05-2024 End: 06-05-2024 Subsequent hospital visit by physician [address] GENERAL Comment on above: Neck pain [M54.2] Start: 06-05-2024 End: 06-05-2024 Patient encounter procedure Rosalina Hilton DATA SCIENCE AND IOT MANAGER.PREPARED FOODS SERVICE TEAM MEMBER Work Phone: [facility] Comment on above: Adjustment disorder with mixed anxiety and depressed mood (Primary Dx); Myofascial pain syndrome; Sinus drainage Start: 06-05-2024 End: 06-05-2024 ambulatory ROSALINA HILTON Facility:[id number] Start: 05-27-2024 End: 05-27-2024 Patient encounter procedure Madison Denny PA-C Work Phone: Pain Management Comment on above: Sacroiliitis (HCC) ( Primary Dx); Myofascial pain syndrome; Neck pain Start: 05-27-2024 End: 05-28-2024 ambulatory MADISON Mata EDUIN Facility:[id number] Start: 05-20-2024 Refill Levi Trejo Work Phone: [facility] Comment on above: Refill Request Start: 05-15-2024 End: 05-15-2024 ambulatory GROVER OSORIO MD Facility:A Start: 05-09-2024 Refill Rosalina Hilton APRN.CNP Work Phone: [facility] Comment on above: Refill Request Start: 05-07-2024 Telephone encounter Rosalina saucedo APRN.PREPARED FOODS SERVICE TEAM MEMBER Work Phone: [facility] Comment on above: Referral Information (Neuro) Start: 05-07-2024 End: 05-07-2024 Patient encounter procedure Rosalina Hilton DATA SCIENCE AND IOT MANAGER.PREPARED FOODS SERVICE TEAM MEMBER Work Phone: [facility] Comment on above: Follow-up exam (Prim maria esther Dx); Adjustment disorder with mixed anxiety and depressed mood; Other migraine without status migrainosus, not intractable; Bacterial sinusitis; Myofascial pain syndrome; Chest tightness Start: 05-07-2024 End: 05-07-2024 ambulatory ROSALINA HILTON Facility:[id number] Start: 05-06-2024 Telephone encounter Rosalina Boswell sheryl RAINEY.PREPARED FOODS SERVICE TEAM MEMBER Work Phone: [facility] Comment on above: ED Follow-up Start: 05-02-2024 End: 05-02-2024 Emergency department patient visit ROSALINA HILTON Facility:[id number] Start: 04-29-2024 Telephone encounter Gretta Izquierdo APRN.PREPARED FOODS SERVICE TEAM MEMBER Work Phone: [facility] Comment on above: Results Refill Request Start: 04-29-2024 ambulatory GRETTA IZQUIERDO Fac ility:[id number] Start: 04-29-2024 End: 04-29-2024 Subsequent hospital visit by physician Carlos Meeks [facility] Comment on above: Chest pain on respir ation [R07.1] Start: 04-29-2024 End: 04-29-2024 Patient encounter procedure Gretta Izquierdo APRN.PREPARED FOODS SERVICE TEAM MEMBER Work Phone: [facility] Comment on above: Chest pain on respir ation (Primary Dx); Sinusitis, unspecified chronicity, unspecified location Start: 04-29-2024 End: 04-29-2024 ambulatory ROSALINA HILTON Facility:[id number] Start: 04-03-2024 Telephone encounter Rosalina saucedo DATA SCIENCE AND IOT MANAGER.PREPARED FOODS SERVICE TEAM MEMBER Work Phone: [facility] Comment on above: Results Start: 04-02-2024 End: 04-02-2024 Patient encounter procedure Levi Carlton PA-C Work Phone: [facility] Comment on above: Chronic rhinosinusit is (Primary Dx); Encounter for behavioral health screening; Eustachian tube dysfunction, bilateral; History of anemia; Hypothyroidism, unspecified type Start: 04-02-2024 End: 04-02-2024 ambulatory ROSALINA HILTON Facility:[id number] Start: 03-27-2024 Refill Rosalina Boswell Yobani DATA SCIENCE AND IOT MANAGER.PREPARED FOODS SERVICE TEAM MEMBER Work Phone: [facility] Comment on above: Refill Request Start: 02-19-2024 Refill Rosalina Hilton DATA SCIENCE AND IOT MANAGER.PREPARED FOODS SERVICE TEAM MEMBER Work Phone: [facility] Comment on above: Refill Request Start: 02-06-2024 End: 02-06-2024 ambulatory RAYMOND CARDENAS Facility:[id number] Start: 02-06-2024 End: 02-06-2024 Patient encounter procedure Raymond Cardenas DATA SCIENCE AND IOT MANAGER.PREPARED FOODS SERVICE TEAM MEMBER Work Phone: [facility] Comment on above: Bacterial sinusitis (Primary Dx) Start: 01-03-2024 End: 01-03-2024 ambulatory NAZ JOHNSON PA-C Facility:A Start: 09-13-2023 Refill Rosalina Andreia Yobani DATA SCIENCE AND IOT MANAGER.PREPARED FOODS SERVICE TEAM MEMBER Work Phone: [facility] Comment on above: Refill Request Start: 08-30-2023 Refill Medhat key MD Work Phone: [facility] Comment on above: Refill Request Start: 07-26-2023 End: 07-26-2023 Patient encounter procedure No Primary Care Physician [facility] Work Phone: Start: 07-11-2023 Non-patient / Non-visit No [facility] Physician [facility] Start: 07-11-2023 End: 07-11-2023 Patient encounter procedure No Primary Care Physician [facility] Work Phone: Start: 07-11-2023 End: 07-11-2023 Patient encounter procedure No Primary Care Physician [facility] Work Phone: Start: 07-06-2023 End: 07-06-2023 ambulatory No Primary Care Physician [facility] Work Phone: Start: 07-06-2023 End: 07-06-2023 Patient encounter procedure No Primary Care Physician [facility] Work Phone: Start: 06-28-2023 Non-patient / Non-visit No [facility] Start: 06-28-2023 End: 06-28-2023 Admission to same day surgery center No Primary Care Physician [facility]-Civil Estimator/Special Procedures Work Phone: Start: 06-28-2023 End: 06-28-2023 ambulatory No Primary Care Physician [facility] Work Phone: Start: 06-22-2023 End: 06-22-2023 ambulatory [facility] Facility:[facility] Start: 06-22-2023 End: 06-22-2023 Patient encounter procedure Raymond Cardenas APRN.PREPARED FOODS SERVICE TEAM MEMBER Work Phone: [facility] Comment on above: Bacterial sinusitis (Primary Dx) Start: 06-01-2023 Non-patient / Non-visit No Alpa johnson [facility] Physician [facility] Start: 06-01-2023 End: 06-01-2023 ambulatory No Primary Care Physician [facility] Work Phone: Start: 06-01-2023 End: 06-01-2023 Patient encounter procedure No Primary Care Physician [facility]-Cardiovascul ar Services Work Phone: Start: 05-30-2023 End: 05-30-2023 Subsequent hospital visit by physician Isaiah Emerson MD Work Phone: [facility] Comment on above: Sacroiliitis (HCC) [ M46.1] Start: 05-24-2023 End: 05-24-2023 Patient encounter procedure No Primary Care Physician [facility] Work Phone: Start: 05-21-2023 Telephone encounter Rosalina saucedo APRN.PREPARED FOODS SERVICE TEAM MEMBER Work Phone: [facility] Comment on above: Results Start: 05-19-2023 ambulatory ROSALINA HILTON Facility :[facility] Start: 05-19-2023 End: 05-19-2023 Subsequent hospital visit by physician Rosalina Hilton APRN.PREPARED FOODS SERVICE TEAM MEMBER Work Phone: [facility] Start: 05-19-2023 End: 05-19-2023 ambulatory MEDHAT DENNY Facility:[facility] Start: 05-19-2023 End: 05-19-2023 Patient encounter procedure Rosalina Hilton APRN.PREPARED FOODS SERVICE TEAM MEMBER Work Phone: [facility] Comment on above: Other fatigue (Prima ry Dx); History of anemia; Other migraine without status migrainosus, not intractable; History of COVID-19; Bacterial sinusitis Start: 05-18-2023 End: 05-18-2023 Patient encounter procedure Madison Denny PA-C Work Phone: Pain Management Comment on above: Sacroiliitis (HCC) ( Primary Dx); Myofascial pain syndrome; Neck pain; Right leg pain; Left leg pain; Other migraine without status migrainosus, not intractable Refill Request Start: 02-25-2023 Refill María Elena hurley MD Work Phone: [facility] Comment on above: Refill Request Start: 02-23-2023 Refill Medhat key MD Work Phone: [facility] Comment on above: Refill Request Start: 02-20-2023 ambulatory ROBB STONE Facility:[facility] Start: 02-20-2023 End: 02-20-2023 Subsequent hospital visit by physician Provider [facility] Start: 02-06-2023 End: 02-07-2023 ambulatory MEDHAT DENNY Facility:[facility] Start: 02-06-2023 End: 02-06-2023 Patient encounter procedure Fab Vincent PA-C Work Phone: General Surgery Comment on above: History of anemia (P rimary Dx); Abdominal discomfort Start: 02-01-2023 End: 02-19-2023 ambulatory ROBB STONE Facility:[facility] Start: 01-25-2023 ambulatory MEDHAT DENNY Facilit y:[facility] Start: 01-25-2023 End: 01-25-2023 Subsequent hospital visit by physician Provider [facility] Start: 01-24-2023 Telephone encounter Lukasz Woodward MD Work Phone: General Surgery Comment on above: Results Start: 01-17-2023 Refill Bebeto Stephens But ler DATA SCIENCE AND IOT MANAGER.PREPARED FOODS SERVICE TEAM MEMBER Work Phone: [facility] Comment on above: Refill Request Start: 01-16-2023 ambulatory MEDHAT DENNY Facilit y:[facility] Start: 01-16-2023 End: 01-16-2023 Subsequent hospital visit by physician Lukasz Woodward MD Work Phone: [facility] Endoscopy Comment on above: Abdominal pain, unsp ecified abdominal location [R10.9] Start: 12-28-2022 End: 12-28-2022 Subsequent hospital visit by physician Provider [facility] Start: 12-27-2022 Refill Medhat key MD Work Phone: [facility] Comment on above: Med Change Request Start: 12-24-2022 Refill Bebeto Stephens But ler DATA SCIENCE AND IOT MANAGER.PREPARED FOODS SERVICE TEAM MEMBER Work Phone: [facility] Comment on above: Refill Request Start: 12-10-2022 Refill Medhat key MD Work Phone: [facility] Comment on above: Refill Request Start: 12-09-2022 ambulatory ROBB STONE Facility[facility] Start: 12-09-2022 End: 12-09-2022 Subsequent hospital visit by physician Provider [facility] Start: 11-23-2022 End: 12-20-2022 ambulatory MEDHAT DENNY Facility:[facility] Start: 11-18-2022 ambulatory Medhat key MD Work Phone: [facility] Comment on above: Newest and previous celiac lab results Start: 11-18-2022 Refill Bebeto Stephens But ler DATA SCIENCE AND IOT MANAGER.PREPARED FOODS SERVICE TEAM MEMBER Work Phone: [facility] Comment on above: Refill Request Start: 11-18-2022 End: 11-18-2022 Patient encounter procedure Madison Denny PA-C Work Phone: Pain Management Comment on above: Neck pain (Primary D x); Right leg pain; Left leg pain; Myofascial pain syndrome; Other migraine without status migrainosus, not intractable Start: 11-16-2022 End: 11-22-2022 ambulatory MEDHAT DENNY Facility:[facility] Start: 11-16-2022 End: 11-23-2022 Subsequent hospital visit by physician Provider [facility] Start: 11-15-2022 Refill Medhat key MD Work Phone: [facility] Comment on above: Refill Request Start: 11-14-2022 ambulatory MEDHAT DENNY Facilit y:[facility] Start: 11-14-2022 End: 11-14-2022 Subsequent hospital visit by physician Provider [facility] Start: 11-14-2022 Telephone encounter Medhat Denny MD Work Phone: [facility] Comment on above: Iron Infusion auth; Results (Celiac labs) Start: 11-09-2022 End: 11-09-2022 ambulatory MEDHAT DENNY Facility:[facility] Start: 11-09-2022 End: 11-09-2022 Nursing evaluation of patient and report Nurse [facility] Work Phone: [facility] Comment on above: Right hip pain (Prim maria esther Dx) Start: 11-09-2022 End: 11-09-2022 Subsequent hospital visit by physician Provider [facility] Start: 11-09-2022 End: 11-09-2022 Patient encounter procedure Medhat Denny MD Work Phone: [facility] Comment on above: Right hip pain (Prim maria esther Dx); Deficiency of multiple nutrient elements; Other iron deficiency anemia Start: 11-04-2022 End: 11-04-2022 ambulatory MEDHAT DENNY Facility:[facility] Start: 11-04-2022 End: 11-04-2022 Patient encounter procedure Raymond Cardenas APRN.CNP Work Phone: [facility] Comment on above: Acute right-sided lo w back pain with right-sided sciatica (Primary Dx) Start: 11-02-2022 End: 11-02-2022 ambulatory MEDHAT DENNY Facility:[facility] Start: 11-02-2022 End: 11-02-2022 Patient encounter procedure Fab Vincent RASHARD Work Phone: General Surgery Comment on above: Abdominal discomfort (Primary Dx); Iron deficiency anemia, unspecified iron deficiency anemia type Start: 10-28-2022 Telephone encounter Medhat Denny MD Work Phone: [facility] Comment on above: Orders Start: 10-25-2022 Telephone encounter Bebeto Soliman APRN.PREPARED FOODS SERVICE TEAM MEMBER Work Phone: [facility] Comment on above: Results Start: 10-21-2022 End: 10-21-2022 ambulatory BEBETO SOLIMAN Facility[facility] Start: 10-21-2022 Telephone encounter Bebeto Soliman APRN.PREPARED FOODS SERVICE TEAM MEMBER Work Phone: [facility] Comment on above: Internal Referrals/r esources (Gastroenterology ) Start: 10-21-2022 End: 10-21-2022 Patient encounter procedure Bebeto Soliman APRN.PREPARED FOODS SERVICE TEAM MEMBER Work Phone: [facility] Comment on above: Abdominal pain, unsp ecified abdominal location (Primary Dx); Microcytic anemia; Elevated lipase; Bacterial sinusitis; Fatigue, unspecified type Start: 10-19-2022 Telephone encounter Noa Silva RN [facility] Comment on above: ER F/U Start: 10-18-2022 End: 10-18-2022 Emergency department patient visit MEMO Atkinson MATTA Facility:[facility] Start: 10-18-2022 End: 10-18-2022 Subsequent hospital visit by physician Provider [facility] Comment on above: ABD PAIN Start: 08-25-2022 Refill Medhat key MD Work Phone: [facility] Comment on above: Refill Request Start: 08-14-2022 Refill Bebeto mckeon DATA SCIENCE AND IOT MANAGER.PREPARED FOODS SERVICE TEAM MEMBER Work Phone: [facility] Comment on above: Refill Request (Fl[place] ase) Start: 08-02-2022 End: 08-02-2022 ambulatory BEBETO SOLIMAN Facility:[facility] Start: 08-02-2022 End: 08-02-2022 Patient encounter procedure Bebeto Soliman DATA SCIENCE AND IOT MANAGER.PREPARED FOODS SERVICE TEAM MEMBER Work Phone: [facility] Comment on above: Acute cystitis witho ut hematuria (Primary Dx) Start: 07-15-2022 Telephone encounter Medhat Denny MD Work Phone: [facility] Comment on above: TB test/Letter for Ashish nielsen Start: 06-29-2022 Refill Medhat key MD Work Phone: [facility] Comment on above: Refill Request Start: 06-23-2022 ambulatory MEDHAT DENNY Facilit y:[facility] Start: 06-23-2022 End: 06-23-2022 Subsequent hospital visit by physician Provider [facility] Start: 06-22-2022 Refill Medhat key MD Work Phone: [facility] Comment on above: Refill Request Start: 06-15-2022 End: 06-15-2022 Patient encounter procedure Madison Denny PA-C Work Phone: Pain Management Comment on above: Neck pain (Primary D x); Right leg pain; Left leg pain; Myofascial pain syndrome; Other migraine without status migrainosus, not intractable Start: 05-23-2022 End: 06-22-2022 ambulatory MEDHAT DENNY Facility:[facility] Start: 05-23-2022 End: 05-23-2022 Subsequent hospital visit by physician Provider [facility] Comment on above: BACK PAIN LEFT LEG P AIN Start: 05-17-2022 Telephone encounter Medhat Denny MD Work Phone: [facility] Comment on above: Internal Referrals/r esources (vascular) Start: 05-16-2022 End: 05-22-2022 ambulatory MEDHAT DENNY Facility:[facility] Start: 05-16-2022 End: 05-16-2022 Subsequent hospital visit by physician Provider [facility] Comment on above: BACK PAIN LEFT LEG P AIN Start: 05-15-2022 Chart abstracting Jose D munguia MD Work Phone: Pain Management Start: 05-12-2022 Patient encounter procedure [facility] Provider [facility] Start: 05-12-2022 ambulatory MEDHAT DENNY Facilit y:[facility] Start: 05-12-2022 End: 05-12-2022 Subsequent hospital visit by physician Provider [facility] Comment on above: RUQ PAIN Start: 05-05-2022 ambulatory Medhat key MD Work Phone: [facility] Comment on above: XRay Result Question Start: 05-03-2022 ambulatory MEDHAT DENNY Facilit y:[facility] Start: 05-03-2022 End: 05-03-2022 Nursing evaluation of patient and report Nurse [facility] Work Phone: [facility] Comment on above: Left sided sciatica (Primary Dx) Start: 05-03-2022 End: 05-03-2022 Patient encounter procedure Medhat Denny MD Work Phone: [facility] Comment on above: Left leg pain (Prima ry Dx); Chronic deep vein thrombosis (DVT) of femoral vein of left lower extremity (HCC); Left sided sciatica Start: 04-28-2022 ambulatory Micha Klein RN Work Phone: [facility] Start: 04-28-2022 E-mail encounter fro m caregiver Cc Provider [facility] Start: 04-28-2022 Follow-up encounter Ccf Provider [facility] Comment on above: ER Follow Up ED Follow-up ([facility] LLE pain (-DVT) and +UTI) Start: 04-27-2022 End: 04-27-2022 Subsequent hospital visit by physician Provider [facility] Comment on above: LEG PAIN selling lle Start: 04-22-2022 End: 04-22-2022 Nursing evaluation of patient and report Nurse Navigator Work Phone: [facility] Comment on above: Encounter for PPD sk in test reading (Primary Dx) Start: 04-20-2022 End: 04-20-2022 Nursing evaluation of patient and report Nurse Karl Pool Work Phone: [facility] Comment on above: Screening for tuberc ulosis (Primary Dx) Start: 04-19-2022 Telephone encounter Medhat Denny MD Work Phone: [facility] Comment on above: PPD Screening Or Sheridan t Start: 04-01-2022 Telephone encounter Fernie Rascon MD Work Phone: Gynecology Comment on above: 04/22/22 Appt time c hanged Start: 03-23-2022 End: 03-23-2022 Subsequent hospital visit by physician Provider [facility] Start: 03-23-2022 End: 03-23-2022 Patient encounter procedure Medhat Denny MD Work Phone: [facility] Comment on above: Hypothyroidism, unsp ecified type (Primary Dx); Elevated glucose; History of DVT (deep vein thrombosis); H/O protein C deficiency; H/O protein S deficiency Start: 03-22-2022 End: 03-22-2022 ambulatory Leslie Miguel RAINEY.PREPARED FOODS SERVICE TEAM MEMBER Work Phone: Gynecology Comment on above: Post-operative state (Primary Dx); S/P hysterectomy; Endometriosis determined by laparoscopy Start: 03-22-2022 End: 03-22-2022 Telemedicine consultation with patient Leslie Rivera REDD.PREPARED FOODS SERVICE TEAM MEMBER Work Phone: [facility] Start: 03-17-2022 Telephone encounter Maral Rand MD Work Phone: Gynecology Comment on above: UTI Start: 03-11-2022 Refill Medhat key MD Work Phone: [facility] Comment on above: Refill Request Start: 03-07-2022 End: 03-07-2022 ambulatory Fernie Rascon MD Work Phone: Gynecology Comment on above: Abnormal uterine ble eding (Primary Dx); Fibroids Start: 03-07-2022 End: 03-07-2022 Telemedicine consultation with patient Fernie Rascon MD Work Phone: [facility] Start: 03-01-2022 Telephone encounter Rere Watson PA-C Work Phone: Cardiology Comment on above: Orders Start: 02-24-2022 End: 02-24-2022 Nursing evaluation of patient and report Nurse Schedule Maker Work Phone: Gynecology Comment on above: Educational circumst ances (Primary Dx) Start: 02-24-2022 End: 02-24-2022 Admission to establishment Pacc Main 6 Work Phone: [facility] Start: 02-24-2022 End: 02-24-2022 ambulatory Pac Main 6 Work Phone: Pre Anesthesia Comment on above: Pre-op evaluation (P rimary Dx); Fibroids Start: 02-24-2022 End: 02-24-2022 Preprocedural examination done Pacc Main 6 Work Phone: Pre Anesthesia Start: 02-21-2022 End: 02-21-2022 Orders Only Beto Steele MD Work Phone: Cardiology Comment on above: Routine check-up (Pr imary Dx) Preop cardiovascular exam (Primary Dx) Start: 02-21-2022 End: 02-21-2022 Patient encounter status Beto Steele MD Work Phone: Cardiology Start: 02-16-2022 Refill Fab Robins APRN.PREPARED FOODS SERVICE TEAM MEMBER Work Phone: [facility] Comment on above: Refill Request Start: 02-15-2022 End: 02-15-2022 Subsequent hospital visit by physician Madison Denny PA-C Work Phone: [facility] Comment on above: FOLLOW UP Start: 01-25-2022 End: 01-25-2022 Subsequent hospital visit by physician Isaiah Emerson MD Work Phone: [facility] Comment on above: TPI Start: 01-01-2022 Refill Medhat key MD Work Phone: [facility] Comment on above: Refill Request; Refi ll Request; Refill Request; Refill Request Start: 07-27-2021 Patient encounter procedure Debbie Hauser MD Work Phone: [facility] Start: 07-27-2021 Progress Note Debbie Kaplan nd, MD Work Phone: [facility] Start: 07-27-2020 Patient encounter procedure Roxana Coles PA-C Work Phone: [facility] Start: 07-27-2020 Progress Note Roxana Coles PA-C Work Phone: [facility] Procedures Date Procedure Procedure Detail Performing Clinician Start: 04-09-2025 Urnls dip stick/tablet rgnt auto w/o microscopy Veto Linares DO Work Phone: Start: 12-25-[address] Jenna Ramos DO Work Phone: Start: 10-26-2024 Lipid 1996 panel - Serum or Plasma Trang Mcdaniel MD Work Phone: Start: 09-07-2024 Lipid 1996 panel - Serum or Plasma Veto Linares DO Work Phone: Start: 07-24-2024 Dxa bone density study 1/> sites axial skel Dwayne Mcdaniel MD Work Phone: Start: 07-16-2024 Assay of thyroid stimulating hormone tsh Dwayne Mcdaniel MD Work Phone: Start: 06-11-2024 End: 06-11-2024 Injection single/quick print operator trigger point 3/> muscles Misael Wall MD Work Phone: Start: 04-29-2024 Radiologic exam chest 2 views Gretta Izquierdo APRN.PREPARED FOODS SERVICE TEAM MEMBER Work Phone: Start: 04-02-2024 Assay of ferritin Levi Carlton PA-C Work Phone: Start: 04-02-2024 Adult depression screening assessment Levi Carlton PA-C Work Phone: Start: 05-19-2023 CBC + DIFF Rosalina Hilton DATA SCIENCE AND IOT MANAGER.PREPARED FOODS SERVICE TEAM MEMBER Work Phone: Start: 05-19-2023 FERRITIN BLD Rosalina Hilton DATA SCIENCE AND IOT MANAGER.PREPARED FOODS SERVICE TEAM MEMBER Work Phone: Start: 05-19-2023 IRON + TIBC Rosalina Buitragoes DATA SCIENCE AND IOT MANAGER.PREPARED FOODS SERVICE TEAM MEMBER Work Phone: Start: 05-19-2023 TSH BLD Rosalina Hilton DATA SCIENCE AND IOT MANAGER.PREPARED FOODS SERVICE TEAM MEMBER Work Phone: Start: 05-19-2023 VITAMIN B12 BLOOD Rosalina Hilton DATA SCIENCE AND IOT MANAGER.PREPARED FOODS SERVICE TEAM MEMBER Work Phone: Start: 05-19-2023 VITAMIN D 25 HYDROXY Rosalina Buitragoes DATA SCIENCE AND IOT MANAGER.PREPARED FOODS SERVICE TEAM MEMBER Work Phone: Start: 02-06-2023 Follow-up visit Follow Up FAB VINCENT Start: 01-16-2023 Colonoscopy flx dx w/collj spec when pfrmd Fab Vincent PA-C Work Phone: Start: 01-16-2023 Esophagogastroduodenoscopy transoral diagnostic Fab Vincent PA-C Work Phone: Start: 01-16-2023 Colonoscopy Levi Carlton PA-C Work Phone: Start: 12-09-2022 Comprehensive metabolic 2000 panel - Serum or Plasma Robb Stone MD Work Phone: Start: 12-09-2022 FERRITIN BLD Robb Stone MD Work Phone: Start: 12-09-2022 Folate [Mass/volume] in Serum or Plasma Robb Stone MD Work Phone: Start: 12-09-2022 FREE LIGHT CHAINS ([facility]) Robb Stone MD Work Phone: Start: 12-09-2022 CARLENE URINE ([facility]) Robb Stone MD Work Phone: Start: 12-09-2022 IRON + TIBC Robb Stone MD Work Phone: Start: 12-09-2022 RETIC COUNT Robb Stone MD Work Phone: Start: 12-09-2022 SER PROT ELEC & CARLENE ([facility]) Robb Stone MD Work Phone: Start: 12-09-2022 URINE PROT ELEC/RAND ([facility]) Michaela Stone MD Work Phone: Start: 12-09-2022 VITAMIN B12 BLOOD Robb Stone MD Work Phone: Start: 11-14-2022 IGA BLD Medhat Denny MD Work Phone: Start: 11-14-2022 IgG [Mass/volume] in Serum or Plasma Medhat Denny MD Work Phone: Start: 11-14-2022 IgM [Mass/volume] in Serum or Plasma Medhat Denny MD Work Phone: Start: 11-09-2022 Hla class ii typing high resolution one locus ea Medhat Denny MD Work Phone: Start: 11-09-2022 XR HIP 2-3 VIEWS ([facility]) Medhat Denny MD Work Phone: Start: 10-18-2022 BASIC METABOLIC PNL Memo B Matta Work Phone: Start: 10-18-2022 CBC + DIFF Memo B Matta Work Phone: Start: 10-18-2022 HEPATIC FUNCTION PNL Memo B Matta Work Phone: Start: 10-18-2022 LIPASE BLD Memo B Matta Work Phone: Start: 10-18-2022 URINALYSIS, DIPSTICK ONLY Memo B Matta Work Phone: Start: 10-18-2022 Ct abdomen & pelvis w/contrast material Memo B Matta Work Phone: Start: 08-02-2022 Urnls dip stick/tablet rgnt auto w/o microscopy Bebeto Soliman DATA SCIENCE AND IOT MANAGER.PREPARED FOODS SERVICE TEAM MEMBER Work Phone: Start: 05-12-2022 Us abdominal real time w/image limited Medhat Denny MD Work Phone: Start: 04-27-2022 UA WITH CULTURE IF INDICATED Provider Cc hs Start: 04-27-2022 URINALYSIS, WITH MICROSCOPIC Provider [facility]c [facility] Start: 03-23-2022 Hemoglobin A1c/Hemoglobin.total in Blood Medhat Denny MD Work Phone: Start: 03-23-2022 TSH BLD Medhat Denny MD Work Phone: Start: 03-23-2022 Adult depression screening assessment Medhat Denny MD Work Phone: Start: 04-01-2021 Lipid 1996 panel - Serum or Plasma Levi Carlton PA-C Work Phone: Start: 03-31-2021 Mammography Isaiah Emerson MD Work Phone: Start: 03-16-2021 Adult depression screening assessment Isaiah Emerson MD Work Phone: H/O: hysterectomy S/P hysterectomy Mark Rivera DATA SCIENCE AND IOT MANAGER.PREPARED FOODS SERVICE TEAM MEMBER Work Phone: Plan of Treatment Date Care Activity Detail Author Start: 08-05-2034 Urine microalbumin profile DTaP,Tdap,Td Vaccine (2 - Td or Tdap) [facility] Start: 10-26-2029 Lipid panel Lipid Screening [facility] Start: 09-07-2029 Lipid panel Lipid Screening [facility] Start: 10-26-2027 Diabetes Screening Diabetes Screenin [facility] Start: 09-07-2027 Diabetes Screening Diabetes Screenin [facility] Start: 07-02-2027 Diabetes Screening Diabetes Screenin [facility] Start: 05-02-2027 Diabetes Screening Diabetes Screenin [facility] Start: 04-01-2026 Lipid panel Lipid Screening [facility] Start: 12-09-2025 Diabetes Screening Diabetes Screenin [facility] Start: 08-25-2025 PAP TESTING PAP TESTING [facility] Start: 08-25-2025 Screening for malign ant neoplasm of cervix Pap Testing [facility] Start: 07-16-2025 Annual PCP Team [employer] karin Disease Visit Annual PCP Team Chronic Disease Visit [facility] Start: 06-14-2025 Annual PCP Team [employer] karin Disease Visit Annual PCP Team Chronic Disease Visit [facility] Start: 06-05-2025 Annual PCP Team [employer] karin Disease Visit Annual PCP Team Chronic Disease Visit [facility] Start: 05-07-2025 Annual PCP Team [employer] karin Disease Visit Annual PCP Team Chronic Disease Visit [facility] Start: 04-29-2025 Annual PCP Team [employer] karin Disease Visit Annual PCP Team Chronic Disease Visit [facility] Start: 04-02-2025 Annual PCP Team [employer] karin Disease Visit Annual PCP Team Chronic Disease Visit [facility] Start: 04-02-2025 Anxiety Screening Anxiety Screening [facility] Start: 04-02-2025 Covid-19 Vaccine () Covid-19 Vaccine () [facility] Comment on above: Postponed from 06/23 (Declined at this time) Start: 04-02-2025 Depression Screening Depression Scre ening [facility] Start: 04-02-2025 Hepatitis B Vaccine (1 of 3 - 19+ 3-dose series) Hepatitis B Vaccine (1 of 3 - 19+ 3-dose series) [facility] [facility] Comment on above: Postponed from 03/28 (Declined at this time) Start: 04-02-2025 Hepatitis C screening Hepatitis C Sc timothy [facility] Comment on above: Postponed from 03/28 (Declined at this time) Start: 04-02-2025 HIV screening HIV Screening [facility] Comment on above: Postponed from 03/28 (Declined at this time) Start: 02-05-2025 Annual PCP Team [employer] Laborer karin Disease Visit Annual PCP Team Chronic Disease Visit [facility] Start: 01-16-2025 End: 01-16-2025 Follow-up encounter 01/16/2025 10:00 AM EDT [facility] Neurology [address] [place] [address] [place] [id number] [address] [place] [address] follow up Neurology Comment on above: follow up Start: 12-04-2024 End: 12-04-2024 Patient encounter procedure 12/04/2024 1:20 PM EST Appointment [facility] [address] [place] [address] [facility] Start: 11-27-2024 End: 11-27-2024 Patient encounter procedure 11/27/2024 3:30 PM EST Office Visit Neurology [address] [place] [address] [place] [address] [address] [place] [address] provider ordered f/u 2-3 mios Neurology Comment on above: provider ordered f/u 2-3 mios Start: 11-26-2024 Patient referral [facility] Work Phone: Start: 11-21-2024 End: 11-21-2024 Patient encounter procedure 11/21/2024 8:30 AM EST Office Visit Pain Management [address] [place], [place] [id number] Madison Denny PA-C [address] [place] [address] Follow Up Pain Management Comment on above: Follow Up Start: 10-07-2024 Patient referral [facility] Work Phone: Start: 09-23-2024 End: 09-23-2024 Patient encounter procedure 09/23/2024 7:30 AM EST Office Visit Pain Management [address] [place], [place] [address] Misael Wall MD [address] [place] [address] 1 month follow up Pain Management Comment on above: 1 month follow up Start: 09-16-2024 End: 09-16-2024 Patient encounter procedure 09/16/2024 7:00 AM EST Office Visit Pain Management [address] [place] [address] Madison Denny PA-C [address] [place] [address] 1 month follow up Pain Management Comment on above: 1 month follow up Start: 09-06-2024 End: 09-06-2024 Patient encounter procedure 09/06/2024 10:40 AM EST Office Visit [facility] [address] [place], [place] [phone] Dwayne Mcdaniel MD [address] [place], [place] [id number] [facility] 08/25/24 Fall, Migraines [facility] Comment on above: [facility] 08/25/24 Fall, M igraines Start: 09-04-2024 End: 09-04-2024 Patient encounter procedure 09/04/2024 1:00 PM EST Office Visit Neurology [address] [place] [address] [place] [address] [place] [address] Migraines and neck pain have become unbearable Neurology Comment on above: Migraines and neck p ain have become unbearable Start: 09-03-2024 End: 12-03-2024 Thyrotropin [Units/volume] in Serum or Plasma THYROID STIMULATING HORMONE Lab Routine Acquired hypothyroidism Expected: 09/03/2024, Expires: 12/03/2024 [facility] Work Phone: Comment on above: Expected: 09/03/2024 , Expires: 12/03/2024 Start: 09-02-2024 Hepatitis B Vaccine (2 of 3 - Hep B Twinrix 3-dose series) Hepatitis B Vaccine (2 of 3 - Hep B Twinrix 3-dose series) [facility] Start: 08-28-2024 End: 08-28-2024 Patient encounter procedure 08/28/2024 3:30 PM EST Office Visit Pain Management [address] [place] [address] Misael Wall MD [address] [place] [address] Follow Up Pain Management Comment on above: Follow Up Start: 08-22-2024 End: 08-22-2024 Patient encounter procedure 08/22/2024 1:00 PM EDT Appointment Radiology CT Scan [address] [place] [address] CT SINUS WO CONT, Radiology CT Scan Comment on above: CT SINUS WO CONT, Start: 08-20-2024 End: 08-20-2024 Patient encounter procedure 08/20/2024 9:20 AM EDT Office Visit [address] [place], [place] [phone] Rosalina Hilton APRN.[facility] [address] [place], [place] [id number] 2 month follow up [facility] Comment on above: 2 month follow up Start: 07-24-2024 End: 07-24-2024 Patient encounter procedure 07/24/2024 9:00 AM EDT Appointment Radiology [address] [place], [place] [address] Acquired hypothyroidism [E03.9] Radiology Comment on above: Acquired hypothyroid ism [E03.9] Start: 07-16-2024 End: 07-16-2024 Patient encounter procedure 07/16/2024 8:00 AM EDT Office Visit [facility] [address] [place], [place] [id number] Dwayne Mcdaniel MD [address] [place], [place] [phone] 4 week follow up [facility] Comment on above: 4 week follow up Start: 07-09-2024 End: 07-09-2024 Nursing evaluation of patient and report 07/09/2024 8:20 AM EDT Nurse Visit [facility] [address] [place], [place] [phone] [place], Nurse [facility] [address] [place], [place] [phone] labs [facility] Comment on above: labs Start: 07-02-2024 End: 07-02-2024 ambulatory 07/02/2024 11:30 AM EDT Results Only [facility] [address] [facility] [place] [address] [facility] Start: 06-27-2024 End: 06-27-2024 Patient encounter procedure 06/27/2024 10:00 AM EDT Appointment [facility] [address] [place] [address] Encounter for screening mammogram for breast cancer [Z12.31] [facility] Comment on above: Encounter for screen ing mammogram for breast cancer [Z12.31] Start: 06-23-2024 Covid-19 Vaccine ( season) Covid-19 Vaccine ( season) [facility] Start: 06-23-2024 Covid-19 Vaccine ( season) Covid-19 Vaccine ( season) [facility] Start: 06-23-2024 Influenza vaccination Influenza Vacc ine (#1) [facility] Start: 06-22-2024 ANNUAL PCP TEAM STAKES PLAYER KARIN DISEASE VISIT ANNUAL PCP TEAM CHRONIC DISEASE VISIT [facility] Start: 06-18-2024 End: 06-18-2024 Patient encounter procedure 06/18/2024 2:00 PM EDT Office Visit [facility] [address] [place], [place] [phone] Dwayne Mcdaniel MD [address] [place], [place] [phone] transfer wants andreia TAYLOR [facility] Comment on above: [place] want[address] Start: 06-14-2024 End: 09-13-2024 DERECK BY IFA WITH REFLEX DERECK BY IFA WITH REFLEX Lab Routine Acute right-sided low back pain with right-sided sciatica Chronic pain syndrome Arthralgia, unspecified joint Expected: 06/14/2024, Expires: 09/13/2024 [facility] Comment on above: Expected: 06/14/2024 , Expires: 09/13/2024 Start: 06-14-2024 End: 09-13-2024 C reactive protein [Mass/volume] in Serum or Plasma C-REACTIVE PROTEIN Lab Routine Hypothyroidism, unspecified type Acute right-sided low back pain with right-sided sciatica Headaches Chronic pain syndrome Expected: 06/14/2024, Expires: 09/13/2024 [facility] Comment on above: Expected: 06/14/2024 , Expires: 09/13/2024 Start: 06-14-2024 End: 09-13-2024 Comprehensive metabolic 2000 panel - Serum or Plasma COMPREHENSIVE METABOLIC PANEL Lab Routine Low serum potassium Expected: 06/14/2024, Expires: 09/13/2024 [facility] Comment on above: Expected: 06/14/2024 , Expires: 09/13/2024 Start: 06-14-2024 End: 09-13-2024 Cyclic citrullinated peptide IgG Ab [Units/volume] in Serum or Plasma CCP ANTIBODY IGG Lab Routine Acute right-sided low back pain with right-sided sciatica Headaches Chronic pain syndrome Arthralgia, unspecified joint Expected: 06/14/2024, Expires: 09/13/2024 [facility] Comment on above: Expected: 06/14/2024 , Expires: 09/13/2024 Start: 06-14-2024 End: 09-13-2024 Erythrocyte sedimentation rate SEDIMENTATION RATE, WESTERGREN Lab Routine Hypothyroidism, unspecified type Acute right-sided low back pain with right-sided sciatica Headaches Malignant melanoma, unspecified site (HCC) Chronic pain syndrome Expected: 06/14/2024, Expires: 09/13/2024 [facility] Comment on above: Expected: 06/14/2024 , Expires: 09/13/2024 Start: 06-14-2024 End: 09-13-2024 Ferritin [Mass/volume] in Serum or Plasma FERRITIN Lab Routine Headaches Chronic pain syndrome Arthralgia, unspecified joint Expected: 06/14/2024, Expires: 09/13/2024 [facility] Comment on above: Expected: 06/14/2024 , Expires: 09/13/2024 Start: 06-14-2024 End: 09-13-2024 Rheumatoid factor [Units/volume] in Serum or Plasma RHEUMATOID FACTOR Lab Routine Arthralgia, unspecified joint Expected: 06/14/2024, Expires: 09/13/2024 [facility] Comment on above: Expected: 06/14/2024 , Expires: 09/13/2024 Start: 06-11-2024 End: 06-11-2024 Admission to same day surgery center 06/11/2024 2:00 PM EDT - 06/11/2024 2:30 PM EDT Surgery [facility] [address] [facility] [place] [address] Misael Wall MD [address] [place] [address] INJECTION TRIGGER POINT THREE OR MORE MUSCLES (neck/upper back) [facility] Comment on above: INJECTION TRIGGER PO INT THREE OR MORE MUSCLES (neck/upper back) Start: 06-11-2024 End: 06-11-2024 Injection single/quick print operator trigger point 3/> muscles INJECTION TRIGGER POINT THREE OR MORE MUSCLES Myofascial pain syndrome 06/11/2024 2:00 PM EDT MR [facility] Start: 06-11-2024 Subsequent hospital visit by physician [facility] Comment on above: Myofascial pain synd bbo [M79.18] Start: 06-05-2024 End: 06-05-2024 Patient encounter procedure 06/05/2024 8:00 AM EDT Office Visit [facility] [address] [place], [place] [id number] Rosalina Hilton, DATA SCIENCE AND IOT MANAGER.[employer] TEAM MEMBER [address] [place] [address] 4 week follow up [facility] Comment on above: 4 week follow up Start: 05-19-2024 ANNUAL PCP TEAM STAKES PLAYER KARIN DISEASE VISIT ANNUAL PCP TEAM CHRONIC DISEASE VISIT [facility] Start: 2024 Screening for malign ant neoplasm of colon [facility] Start: 11-09-2023 ANNUAL PCP TEAM STAKES PLAYER KARIN DISEASE VISIT ANNUAL PCP TEAM CHRONIC DISEASE VISIT [facility] Start: 11-04-2023 ANNUAL PCP TEAM STAKES PLAYER KARIN DISEASE VISIT ANNUAL PCP TEAM CHRONIC DISEASE VISIT [facility] Start: 10-23-2023 Behavioral Health Screening Behavioral Health Screening [facility] Start: 10-21-2023 ANNUAL PCP TEAM STAKES PLAYER KARIN DISEASE VISIT ANNUAL PCP TEAM CHRONIC DISEASE VISIT [facility] Start: 08-25-2023 Screening for malign ant neoplasm of cervix Cervical Cancer Screening [facility] Start: 08-02-2023 ANNUAL PCP TEAM STAKES PLAYER KARIN DISEASE VISIT ANNUAL PCP TEAM CHRONIC DISEASE VISIT [facility] Start: 07-22-2023 End: 09-21-2023 25-hydroxyvitamin D3 [Mass/volume] in Serum or Plasma VITAMIN D 25 HYDROXY Lab Routine Vitamin D deficiency Expected: 07/22/2023, Expires: 09/21/2023 [facility] Work Phone: Comment on above: Expected: 07/22/2023 , Expires: 09/21/2023 Start: 06-28-2023 Patient discharge [facility] Start: 06-23-2023 Covid-19 Vaccine ( season) Covid-19 Vaccine ( season) [facility] Start: 06-23-2023 Influenza vaccination [facility] Start: 05-19-2023 End: 07-19-2023 25-hydroxyvitamin D3 [Mass/volume] in Serum or Plasma VITAMIN D 25 HYDROXY Lab Routine Other fatigue History of anemia History of COVID-19 Expected: 05/19/2023, Expires: 07/19/2023 [facility] Work Phone: Comment on above: Expected: 05/19/2023 , Expires: 07/19/2023 Start: 05-19-2023 End: 07-19-2023 CBC W Auto Differential panel - Blood CBC + DIFF Lab Routine Other fatigue History of anemia History of COVID-19 Expected: 05/19/2023, Expires: 07/19/2023 [facility] Work Phone: Comment on above: Expected: 05/19/2023 , Expires: 07/19/2023 Start: 05-19-2023 End: 07-19-2023 Cobalamin (Vitamin B12) [Mass/volume] in Serum or Plasma VITAMIN B12 BLOOD Lab Routine Other fatigue History of anemia History of COVID-19 Expected: 05/19/2023, Expires: 07/19/2023 [facility] Work Phone: Comment on above: Expected: 05/19/2023 , Expires: 07/19/2023 Start: 05-19-2023 End: 07-19-2023 Ferritin [Mass/volume] in Serum or Plasma FERRITIN BLD Lab Routine Other fatigue History of anemia History of COVID-19 Expected: 05/19/2023, Expires: 07/19/2023 [facility] Work Phone: Comment on above: Expected: 05/19/2023 , Expires: 07/19/2023 Start: 05-19-2023 End: 07-19-2023 Iron and Iron binding capacity panel - Serum or Plasma IRON + TIBC Lab Routine Other fatigue History of anemia History of COVID-19 Expected: 05/19/2023, Expires: 07/19/2023 [facility] Work Phone: Comment on above: Expected: 05/19/2023 , Expires: 07/19/2023 Start: 05-19-2023 End: 07-19-2023 Thyrotropin [Units/volume] in Serum or Plasma TSH BLD Lab Routine Other fatigue History of anemia History of COVID-19 Expected: 05/19/2023, Expires: 07/19/2023 [facility] Work Phone: Comment on above: Expected: 05/19/2023 , Expires: 07/19/2023 Start: 05-03-2023 ANNUAL PCP TEAM STAKES PLAYER KARIN DISEASE VISIT ANNUAL PCP TEAM CHRONIC DISEASE VISIT [facility] Start: 03-23-2023 Adult depression screening assessment DEPRESSION SCREENING [facility] Start: 03-23-2023 ANNUAL PCP TEAM STAKES PLAYER KARIN DISEASE VISIT ANNUAL PCP TEAM CHRONIC DISEASE VISIT [facility] Start: 12-22-2022 ANNUAL PCP TEAM STAKES PLAYER KARIN DISEASE VISIT ANNUAL PCP TEAM CHRONIC DISEASE VISIT [facility] Start: 11-14-2022 End: 01-14-2023 IgA [Mass/volume] in Serum or Plasma IGA BLD Lab Routine IgA deficiency (HCC) Expected: 11/14/2022, Expires: 01/14/2023 [facility] Work Phone: Comment on above: Expected: 11/14/2022 , Expires: 01/14/2023 Start: 11-14-2022 End: 01-14-2023 IgG [Mass/volume] in Serum or Plasma IGG Lab Routine IgA deficiency (HCC) Expected: 11/14/2022, Expires: 01/14/2023 [facility] Work Phone: Comment on above: Expected: 11/14/2022 , Expires: 01/14/2023 Start: 11-14-2022 End: 01-14-2023 IgM [Mass/volume] in Serum or Plasma IGM Lab Routine IgA deficiency (HCC) Expected: 11/14/2022, Expires: 01/14/2023 [facility] Work Phone: Comment on above: Expected: 11/14/2022 , Expires: 01/14/2023 Start: 11-09-2022 End: 01-09-2023 CELIAC DISEASE PANEL CELIAC DISEASE PANEL Lab Routine Deficiency of multiple nutrient elements Expected: 11/09/2022, Expires: 01/09/2023 [facility] Work Phone: Comment on above: Expected: 11/09/2022 , Expires: 01/09/2023 Start: 10-23-2022 DEPRESSION ASSESSMENT DEPRESSION ASS ESSMENT [facility] Start: 10-21-2022 End: 12-21-2022 Amylase [Enzymatic activity/volume] in Serum or Plasma AMYLASE BLD Lab Routine Abdominal pain, unspecified abdominal location Elevated lipase Expected: 10/21/2022, Expires: 12/21/2022 [facility] Work Phone: Comment on above: Expected: 10/21/2022 , Expires: 12/21/2022 Start: 10-21-2022 End: 12-21-2022 CBC W Auto Differential panel - Blood CBC + DIFF Lab Routine Microcytic anemia Expected: 10/21/2022, Expires: 12/21/2022 [facility] Work Phone: Comment on above: Expected: 10/21/2022 , Expires: 12/21/2022 Start: 10-21-2022 End: 12-21-2022 Cobalamin (Vitamin B12) [Mass/volume] in Serum or Plasma VITAMIN B12 BLOOD Lab Routine Microcytic anemia Expected: 10/21/2022, Expires: 12/21/2022 [facility] Work Phone: Comment on above: Expected: 10/21/2022 , Expires: 12/21/2022 Start: 10-21-2022 End: 12-21-2022 Comprehensive metabolic 2000 panel - Serum or Plasma COMP METABOLIC PANEL Lab Routine Abdominal pain, unspecified abdominal location Expected: 10/21/2022, Expires: 12/21/2022 [facility] Work Phone: Comment on above: Expected: 10/21/2022 , Expires: 12/21/2022 Start: 10-21-2022 End: 12-21-2022 Ferritin [Mass/volume] in Serum or Plasma FERRITIN BLD Lab Routine Microcytic anemia Expected: 10/21/2022, Expires: 12/21/2022 [facility] Work Phone: Comment on above: Expected: 10/21/2022 , Expires: 12/21/2022 Start: 10-21-2022 End: 12-21-2022 Folate [Mass/volume] in Serum or Plasma FOLATE SERUM Lab Routine Microcytic anemia Expected: 10/21/2022, Expires: 12/21/2022 [facility] Work Phone: Comment on above: Expected: 10/21/2022 , Expires: 12/21/2022 Start: 10-21-2022 End: 12-21-2022 Iron and Iron binding capacity panel - Serum or Plasma IRON + TIBC Lab Routine Microcytic anemia Expected: 10/21/2022, Expires: 12/21/2022 [facility] Work Phone: Comment on above: Expected: 10/21/2022 , Expires: 12/21/2022 Start: 10-21-2022 End: 12-21-2022 Lipase [Enzymatic activity/volume] in Serum or Plasma LIPASE BLD Lab Routine Abdominal pain, unspecified abdominal location Elevated lipase Expected: 10/21/2022, Expires: 12/21/2022 [facility] Work Phone: Comment on above: Expected: 10/21/2022 , Expires: 12/21/2022 Start: 10-21-2022 End: 12-21-2022 Thyrotropin [Units/volume] in Serum or Plasma TSH BLD Lab Routine Fatigue, unspecified type Expected: 10/21/2022, Expires: 12/21/2022 [facility] Work Phone: Comment on above: Expected: 10/21/2022 , Expires: 12/21/2022 Start: 08-02-2022 End: 10-02-2022 Bacteria identified in Urine by Culture URINE CULTURE Microbiology Routine Acute cystitis without hematuria Expected: 08/02/2022, Expires: 10/02/2022 [facility] Work Phone: Comment on above: Expected: 08/02/2022 , Expires: 10/02/2022 Start: 06-23-2022 Influenza vaccination INFLUENZA (#1) [facility] Start: 03-31-2022 Mammography [facility] Start: 03-31-2022 Screening for malign ant neoplasm of breast Mammogram Screening [facility] Start: 03-23-2022 End: 05-23-2022 Hemoglobin A1c/Hemoglobin.total in Blood HGB A1C Lab Routine Elevated glucose Expected: 03/23/2022, Expires: 05/23/2022 [facility] Work Phone: Comment on above: Expected: 03/23/2022 , Expires: 05/23/2022 Start: 03-17-2022 End: 05-17-2022 Bacteria identified in Urine by Culture URINE CULTURE Microbiology Routine Dysuria Expected: 03/17/2022, Expires: 05/17/2022 [facility] Work Phone: Comment on above: Expected: 03/17/2022 , Expires: 05/17/2022 Start: 03-16-2022 Adult depression screening assessment DEPRESSION SCREENING [facility] Start: 02-24-2022 End: 04-26-2022 CONFIRM BLOOD TYPE [facility] Work Phone: Comment on above: Expected: 02/24/2022 , Expires: 04/26/2022 Start: 02-24-2022 End: 04-26-2022 TYPE AND SCREEN,30 DAY [facility] Work Phone: Comment on above: Expected: 02/24/2022 , Expires: 04/26/2022 Start: 10-27-2021 COVID-19 VACCINE (4 - Booster for Moderna series) COVID-19 VACCINE (4 - Booster for Moderna series) [facility] Start: 10-23-2021 DEPRESSION ASSESSMENT DEPRESSION ASS ESSMENT [facility] Start: 2009 HPV TESTING HPV TESTING [facility] Start: 2009 Screening for malign ant neoplasm of cervix HPV Testing [facility] Start: 1998 Hepatitis B Vaccine (1 of 3 - 19+ 3-dose series) Hepatitis B Vaccine (1 of 3 - 19+ 3-dose series) [facility] Start: 1998 Urine microalbumin profile [facility] Start: 1997 HEPATITIS C SCREENING HEPATITIS C [facility] Start: 1997 Hepatitis C screening Hepatitis C [facility] Start: 1997 HIV SCREENING HIV SCREENING [facility] Start: 1997 HIV screening HIV Screening [facility] Start: 1985 PNEUMOCOCCAL (1 - PCV) PNEUMOCOCCAL (1 - PCV) [facility] Start: 1979 HEPATITIS B (1 of 3 - 3-dose series) HEPATITIS B (1 of 3 - 3-dose series) [facility] Start: 1979 Hepatitis B Vaccine (1 of 3 - 3-dose series) Hepatitis B Vaccine (1 of 3 - 3-dose series) [facility] Bacteria identified in Urine by Culture BACTERIAL CULTURE, URINE Microbiology Routine Urinary problem Dysuria 04/09/2025 1:32 PM EDT [facility] Work Phone: End: 08-15-2025 BD DXA TRABECULAR BONE SCORE (TBS) BD DXA TRABECULAR BONE SCORE (TBS) Radiology Routine intermediate systemic steroid user H/O protein C deficiency H/O protein S deficiency 1 Occurrences starting 07/16/2024 until 08/15/2025 [facility] Comment on above: 1 Occurrences starti ng 07/16/2024 until 08/15/2025 CBC W Auto Different ial panel - Blood [facility] End: 07-14-2025 DBT Breast - bilateral screening MOSES SCREENING W [facility] Radiology Routine Encounter for screening mammogram for breast cancer 1 Occurrences starting 06/14/2024 until 07/14/2025 [facility] Work Phone: Comment on above: 1 Occurrences starti ng 06/14/2024 until 07/14/2025 Doppler ultrasonogra phy of aorta [facility] End: 08-15-2025 DXA Skeletal system.axial Views for bone density DXA-AXIAL SKELETON Radiology Routine Acquired hypothyroidism intermediate systemic steroid user H/O protein C deficiency H/O protein S deficiency 1 Occurrences starting 07/16/2024 until 08/15/2025 [facility] Work Phone: Comment on above: 1 Occurrences starti ng 07/16/2024 until 08/15/2025 ECG COMPLETE ECG COMPLETE ECG Routine Routine check-up 02/21/2022 9:23 AM EDT [facility] Work Phone: Heterophile antibodi es screen MONOTEST B/O Lab Routine Other fatigue History of anemia History of COVID-19 Ordered: 05/19/2023 [facility] Work Phone: Comment on above: Ordered: 05/19/2023 Iiv3 vacc preservati ve free 0.5 ml dosage im use INFLUENZA VACCINE, PRSV FREE, AGE 6MO-64YR, TRIVALENT (AFLURIA, FLUARIX, FLULAVAL, FLUVIRIN, FLUZONE) Immunization/Injection Routine Encounter for immunization Ordered: 07/16/2024 [facility] Comment on above: Ordered: 07/16/2024 Injection single/quick print operator trigger point 3/> muscles INJECTION TRIGGER POINT THREE OR MORE MUSCLES Myofascial pain syndrome MR GEORGE IRVIN Iv infusion therapy/prophylaxis /dx 1st to 1 hr THER/PROPH/DIAG IV INF, INIT Procedures Routine Chronic pain syndrome Ordered: 08/28/2024 [facility] Work Phone: Comment on above: Ordered: 08/28/2024 MG Breast - bilatera l Screening [facility] Patient referral [facility] Work Phone: PPD (TB INTRADERMAL [id number]) B/O PPD (TB INTRADERMAL [id number]) B/O Procedures Routine Screening for tuberculosis Ordered: 04/19/2022 [facility] Work Phone: Comment on above: Ordered: 04/19/2022 End: 06-02-2023 Radex spine lumbosacral 2/3 views XR LUMBAR GENERAL 3V AP/LAT/L5-S1 Radiology Routine Left sided sciatica 1 Occurrences starting 05/03/2022 until 06/02/2023 [facility] Work Phone: Comment on above: 1 Occurrences starti ng 05/03/2022 until 06/02/2023 SURGICAL PATHOLOGY [facility] Work Phone: Comment on above: Release Upon Orderin g for 1 Occurrences starting 01/16/2023, 1 completed Tdap vaccine 7 yrs/> im TDAP VAC CINE, AGE 7+ YR (ADACEL, BOOSTRIX) Immunization/Injection Routine Encounter for immunization Ordered: 07/16/2024 [facility] Comment on above: Ordered: 07/16/2024 US Abdomen [facility] End: 06-27-2025 XR Cervical spine AP and Lateral and oblique XR CERV OTHER 4V AP/LAT/OBL Radiology Routine Neck pain 1 Occurrences starting 05/27/2024 until 06/27/2025 [facility] Work Phone: Comment on above: 1 Occurrences starti ng 05/27/2024 until 06/27/2025 XR Cervical spine AP and Lateral and oblique XR CERV OTHER 4V AP/LAT/OBL Radiology Routine Neck pain 06/05/2024 9:36 AM EDT [facility] Work Phone: End: 10-23-2025 XR Chest PA and Lateral XR CHEST 2V FRONTAL/LAT Radiology Routine Respiratory illness with fever 1 Occurrences starting 09/23/2024 until 10/23/2025 [facility] Work Phone: Comment on above: 1 Occurrences starti ng 09/23/2024 until 10/23/2025 XR Chest PA and Lateral XR CHEST 2V FRONTAL/LAT Radiology Routine Respiratory illness with fever 09/23/2024 11:14 AM EST [facility] End: 12-09-2023 XR HIP GENERAL 3V PELV/AP/LAT RIGHT XR HIP GENERAL 3V PELV/AP/LAT RIGHT Radiology Routine Right hip pain 1 Occurrences starting 11/09/2022 until 12/09/2023 [facility] Work Phone: Comment on above: 1 Occurrences starti ng 11/09/2022 until 12/09/2023 [facility] Immunizations Immunization Date Immunization Notes Care Provider Fa [facility] 08-05-2024 hepatitis A and hepatitis B vaccine Dr. Jenna Ramos DO Work Phone: [facility] 08-05-2024 Seasonal, quadrivalent, recombinant, injectable influenza vaccine, preservative free Dr. Jenna Ramos DO Work Phone: [facility] 08-05-2024 tetanus toxoid, reduced diphtheria toxoid, and acellular pertussis vaccine, adsorbed Dr. Jenna Ramos DO Work Phone: [facility] 06-15-2024 tuberculin skin test ; purified protein derivative solution, intradermal Dwayne Mcdaniel MD Work Phone: [facility] 08-25-2023 Seasonal, quadrivalent, recombinant, injectable influenza vaccine, preservative free Dwayne Mcdaniel MD Work Phone: [facility] 08-25-2023 influenza virus vaccine, unspecified formulation Gretta Izquierdo APRN.CNP Work Phone: [facility] 04-13-2023 tuberculin skin test ; purified protein derivative solution, intradermal Dawyne Mcdaniel MD Work Phone: [facility] 08-31-2022 Minda Tan Bivale nt Booster Dr. Jenna Ramos DO Work Phone: [facility] 08-31-2022 Influenza, injectabl e, Madin [place] Canine Kidney, preservative free, quadrivalent Dwayne Mcdaniel MD Work Phone: [facility] 08-31-2022 influenza virus vaccine, unspecified formulation Rosalina Yobani MORRISPREPARED [employer]S SERVICE TEAM MEMBER Work Phone: [facility] 04-20-2022 tuberculin skin test ; purified protein derivative solution, intradermal Misael Wall MD Work Phone: [facility] 09-22-2021 influenza, injectabl e, quadrivalent, contains preservative Isaiah Emerson MD Work Phone: [facility] 09-22-2021 influenza, injectabl e, quadrivalent, preservative free Isaiah Emerson MD Work Phone: [facility] Work Phone: 09-01-2021 Minda Reyes) Dr. Jenna Raoms DO Work Phone: [facility] 04-23-2021 tuberculin skin test ; purified protein derivative solution, intradermal Misael Wall MD Work Phone: [facility] 11-20-2020 COVID-19 vaccine, fu ll dose (MODERNA) Isaiah Emerson MD Work Phone: [facility] 10-22-2020 COVID-19 vaccine, fu ll dose (MODERNAndreia) Isaiah Emerson MD Work Phone: [facility] 08-06-2020 influenza, injectabl e, quadrivalent, preservative free Dr. Jenna Ramos DO Work Phone: [facility] 08-06-2020 influenza, seasonal, injectable Isaiah Emerson MD Work Phone: [facility] 07-28-2020 influenza, injectabl e, quadrivalent, preservative free Dr. Jenna Ramos DO Work Phone: [facility] 07-28-2020 influenza, seasonal, injectable Isaiah Emerson MD Work Phone: [facility] NEGATED: Highlighted row has not occurred!07-16-2024 influenza, seasonal, injectable, preservative free Dwayne Mcdaniel MD Work Phone: [facility] Comment on above: Deferred: Postponed NEGATED: Highlighted row has not occurred!07-16-2024 tetanus toxoid, reduced diphtheria toxoid, and acellular pertussis vaccine, adsorbed Dwayne Mcdaniel MD Work Phone: [facility] Comment on above: Deferred: Postponed Payers Date Payer Category Payer Blue Cross Blue Shield [id number] 2024 Unknown MARGOT BLUE ACCE PPO [id number] 2024-Present [phone] [facility] [id number] [place] [address] PPO [id number] 2024 Unknown [id number] 2024 Self-pay 2021 Private Health Insurance [id number] 2021 Private Health Insurance xxx [id number] 2021 Private Health Insurance [id number] 2021 Unknown ANTHEM BLUE ACCE SS PPO [id number] 02/10/2021 2021 [facility] [id number] [place] [address] PPO [id number] 1979 Unknown [id number] 2.16.840.1.241060.3.579. 2.627 1979 Unknown [id number] 2.16.840.1.981721.3.579. 2.627 Private Health Insurance [id number] Self-pay SELF PAY INSURANCE [id number] Unknown [id number] Unknown [id number] 2.16.840.1.076998.3.579. 2.283 Unknown [id number] 2.16.840.1.767747.3.579. 2.283 Unknown [id number] 2.16.840.1.192088.3.579. 2.283 Unknown [id number] 2.16.840.1.499671.3.579. 2.283 Unknown [id number] 2.16.840.1.822042.3.579. 2.283 Unknown [id number] 2.16.840.1.016034.3.579. 2.283 Unknown [id number] 2.16.840.1.856129.3.579. 2.283 Unknown [id number] 2.16.840.1.623795.3.579. 2.283 Unknown [id number] 2.16.840.1.603899.3.579. 2.283 Unknown [id number] 2.16.840.1.708208.3.579. 2.283 Unknown [id number] 2.16.840.1.281247.3.579. 2.283 Unknown [id number] 2.16.840.1.405343.3.579. 2.283 Unknown [id number] 2.16.840.1.187871.3.579. 2.283 Unknown [id number] 2.16.840.1.008074.3.579. 2.283 Unknown [id number] 2.16.840.1.206151.3.579. 2.283 Unknown [id number] 2.16.840.1.038928.3.579. 2.283 Unknown [id number] 2.16.840.1.952978.3.579. 2.283 Unknown [id number] 2.16.840.1.282594.3.579. 2.462 Unknown [id number] 2.16.840.1.817393.3.579. 2.462 Unknown [id number] 2.16840.1.862011.3.579. 2.462 Unknown [id number] 2.16.840.1.997165.3.579. 2.462 Unknown [id number] 2.16.840.1.930908.3.579. 2.462 Unknown [id number] 2.16.840.1.446391.3.579. 2.462 Unknown [id number] 2.16.840.1.808185.3.579. 2.462 Unknown [id number] 2.16.840.1.448865.3.579. 2.462 Unknown [id number] 2.16.840.1.289054.3.579. 2.462 Unknown [id number] 2.16.840.1.031620.3.579. 2.462 Unknown [id number] 2.16.840.1.707831.3.579. 2.462 Unknown [id number] 2.16.840.1.030971.3.579. 2.462 Unknown [id number] 2.16.840.1.686222.3.579. 2.462 Unknown [id number] 2.16.840.1.910173.3.579. 2.462 Unknown [id number] 2.16.840.1.352023.3.579. 2.462 Unknown [id number] 2.16.840.1.627103.3.579. 2.462 Unknown [id number] 2.16.840.1.191599.3.579. 2.462 Unknown [id number] 2.16.840.1.184541.3.579. 2.462 Unknown [id number] 2.16.840.1.328961.3.579. 2.462 Unknown [id number] 2.16.840.1.298110.3.579. 2.462 Unknown [id number] 2.16.840.1.681928.3.579. 2.462 Unknown [id number] 2.16.840.1.499075.3.579. 2.462 Unknown [id number] 2.16840.1.519028.3.579. 2.462 Social History Date Type Detail Facility Start: 03-16-2021 End: 09-23-2024 Tobacco smoking status NHIS Ex-smoker [facility] Start: 03-23-1994 End: 03-23-2016 History of tobacco use Current smoker [facility] Start: 03-23-1994 End: 03-23-2016 History of tobacco use Cigarette Smoker [facility] Start: 03-16-2021 End: 05-18-2023 Cigarettes smoked current (pack per day) - Reported 1 [facility] Start: 03-16-2021 End: 09-23-2024 Tobacco use and exposure Smokeless tobacco non-user [facility] Start: 12-22-2021 End: 04-09-2025 Alcohol intake Ex-drinker (finding) [facility] Start: 04-29-2021 History SDOH Social Connections Phone 5 [facility] Start: 04-29-2021 History SDOH Social Connections Get Together 2 [facility] Start: 04-29-2021 History SDOH Social Connections Congregation 1 [facility] Start: 04-29-2021 History SDOH Social Connections Living 3 [facility] Start: 1980 Sex Assigned At Female [facility] Start: 01-28-2022 End: 02-07-2022 Exposure to SARS-CoV-2 (event) Unable to assess [facility] Start: 02-11-2022 End: 08-02-2022 Exposure to SARS-CoV-2 (event) Not sure [facility] Start: 05-24-2023 End: 07-26-2023 Tobacco smoking status NHIS Tobacco smoking consumption unknown [facility] Start: 04-29-2021 End: 05-18-2023 Social connection and isolation panel [facility] Do you belong to any clubs or organizations such as mormonism groups, [employer], [employer] or athletic groups, or school groups? No [facility] Are you now , , , , never or living with a partner? [facility] Adult Depression Screening Assessment 0 [facility] Start: 09-20-2021 Gender identity Identifies as female gender (finding) [facility] Start: 09-20-2021 Sexual orientation Heterosexual (finding) [facility] Start: 05-19-2023 None [facility] Start: 05-19-2023 Cigarettes [facility] How often to you hav e a drink containing alcohol? Never [facility] Do you feel stress - tense, restless, nervous, or anxious, or unable to sleep at night because your mind is troubled all the time - these days [OSQ] Very much [facility] (I/We) worried wheth er (my/our) food would run out before (I/we) got money to buy more. Never true [facility] History of tobacco use Passive smoker [facility] Start: 01-08-2025 Sex Female (finding) [facility] Medical Equipment Procedure Code Equipment Code Equipment Original Text Equipment Identifier Dates [id number] FDA Start: 06-28-2023 [id number] FDA Start: 06-28-2023 [id number] [facility] Start: 06-28-2023 Clinical Notes 07-27-2020 to 04-09-2025 Libby Wang, [facility] - 04/09/2025 11:45 AM Dipti Rashid Jr., [facility] - 02/20/2025 12:03 PM EDTPatient InstructionsMakenna Gongora MD - 01/16/2025 9:49 AM EDTPatient Instructions Note Date & Type Note Facility 04-09-2025 Note HNO ID: [id number] Author: LIBBY WANG APRN.[employer] MEMBER Service: ? Author Type: Nurse Practitioner Type: Progress Notes Filed: 04/09/2025 12:17 Note Text: [facility] ELOISA Calix is a 45 year old female. Patient presents with: burning with urination: Burning with urination, lower back pain x 4 to 5 days Nasal congestion ongoing since last month Patient is a 45-year-old female who comes in with dysuria and lower back pain that started 4 to 5 days ago. She has also been having nasal congestion, cough, bilateral ear pain, and nausea for the last week. She states she has been peeing fire. History of UTIs. She is sexually active with the same partner. Denies concern for any STIs. Denies chance of , hysterectomy in 2021. Has tried increasing her fluid intake and Azo with little relief. The history is provided by the patient. Review of Systems Constitutional: Positive for chills. Negative for fever. HENT: Positive for congestion, ear pain (Bilateral), rhinorrhea, sinus pressure and sinus pain. Negative for sore throat. Respiratory: Positive for cough. Gastrointestinal: Positive for nausea. Negative for diarrhea and vomiting. Genitourinary: Positive for dysuria, flank pain (Bilateral), frequency and urgency. Negative for hematuria and vaginal discharge. Slight vaginal itching Musculoskeletal: Positive for back pain (Lower). Objective BP 98/67 Pulse 98 Temp 36.4 ?C (97.6 ?F) (Temporal) Resp 18 Wt 53.5 kg (118 lb) LMP 03/08/2022 SpO2 100% BMI 19.64 kg/m? Physical Exam Vitals and nursing note reviewed. Constitutional: General: She is not in acute distress. HENT: Head: Normocephalic and atraumatic. Right Ear: Tympanic membrane and external ear normal. Left Ear: Tympanic membrane and external ear normal. Nose: Right Sinus: Maxillary sinus tenderness present. No frontal sinus tenderness. Left Sinus: Maxillary sinus tenderness present. No frontal sinus tenderness. Mouth/Throat: Lips: [place]. Mouth: Mucous membranes are moist. Pharynx: Oropharynx is clear. Uvula midline. Cardiovascular: Rate and Rhythm: Normal rate and regular rhythm. Heart sounds: Normal heart sounds. No murmur heard. No friction rub. No gallop. Pulmonary: Effort: Pulmonary effort is normal. No respiratory distress. Breath sounds: Normal breath sounds. No stridor. No wheezing, rhonchi or rales. Abdominal: General: There is no distension. Palpations: Abdomen is soft. Tenderness: There is abdominal tenderness in the suprapubic area. There is no right CVA tenderness or left CVA tenderness. Lymphadenopathy: Head: Right side of head: No submental, submandibular, tonsillar, preauricular, posterior auricular or occipital adenopathy. Left side of head: No submental, submandibular, tonsillar, preauricular, posterior auricular or occipital adenopathy. Skin: General: Skin is warm and dry. Capillary Refill: Capillary refill takes less than 2 seconds. Neurological: Mental Status: She is alert and oriented to person, place, and time. Psychiatric: Behavior: Behavior is cooperative. ASSESSMENT/PLAN: 1. Dysuria - ICD9: 788.1, ICD10: R30.0 (primary diagnosis) acute 2. Urinary problem - ICD9: V47.4, ICD10: R39.89 3. Acute non-recurrent maxillary sinusitis - ICD9: 461.0, ICD10: J01.00 - URINALYSIS, DIPSTICK ONLY - BACTERIAL CULTURE, URINE - SULFAMETHOXAZOLE 800 MG-TRIMETHOPRIM 160 MG TABLET - UA positive for moses esterase, proteinuria, and nitrates. Will send urine for culture. Will call if antibiotics can be changed based on culture sensitivities. -Will go ahead and treat with Bactrim for UTI and sinusitis. Take as directed and take with food. - Advise she may also use Tylenol or ibuprofen as needed, and OTC cold and cough medications as needed. - Follow-up if symptoms persist or worsen. Libby Wang APRN.[employer] MEMBER Differential Diagnoses - UTI, sinusitis, is more likely for the following reason(s): Exam - Pyelonephritis is less likely for the following reason(s): exam Disposition The patient was discharged. OTC Medications were advised: As above [facility] 04-09-2025 History of Presen t illness Narrative [facility] [place] Subjective Suha L Dodson is a 45 year old female. Patient presents with: burning with urination: Burning with urination, lower back pain x 4 to 5 days Nasal congestion ongoing since last month Patient is a 45-year-old female who comes in with dysuria and lower back pain that started 4 to 5 days ago. She has also been having nasal congestion, cough, bilateral ear pain, and nausea for the last week. She states she has been peeing fire. History of UTIs. She is sexually active with the same partner. Denies concern for any STIs. Denies chance of , hysterectomy in 2021. Has tried increasing her fluid intake and Azo with little relief. The history is provided by the patient. Review of Systems Constitutional: Positive for chills. Negative for fever. HENT: Positive for congestion, ear pain (Bilateral), rhinorrhea, sinus pressure and sinus pain. Negative for sore throat. Respiratory: Positive for cough. Gastrointestinal: Positive for nausea. Negative for diarrhea and vomiting. Genitourinary: Positive for dysuria, flank pain (Bilateral), frequency and urgency. Negative for hematuria and vaginal discharge. Slight vaginal itching Musculoskeletal: Positive for back pain (Lower). Objective BP 98/67 Pulse 98 Temp 36.4 C (97.6 F) (Temporal) Resp 18 Wt 53.5 kg (118 lb) LMP 03/08/2022 SpO2 100% BMI 19.64 kg/m Physical Exam Vitals and nursing note reviewed. Constitutional: General: She is not in acute distress. HENT: Head: Normocephalic and atraumatic. Right Ear: Tympanic membrane and external ear normal. Left Ear: Tympanic membrane and external ear normal. Nose: Right Sinus: Maxillary sinus tenderness present. No frontal sinus tenderness. Left Sinus: Maxillary sinus tenderness present. No frontal sinus tenderness. Mouth/Throat: Lips: [place]. Mouth: Mucous membranes are moist. Pharynx: Oropharynx is clear. Uvula midline. Cardiovascular: Rate and Rhythm: Normal rate and regular rhythm. Heart sounds: Normal heart sounds. No murmur heard. No friction rub. No gallop. Pulmonary: Effort: Pulmonary effort is normal. No respiratory distress. Breath sounds: Normal breath sounds. No stridor. No wheezing, rhonchi or rales. Abdominal: General: There is no distension. Palpations: Abdomen is soft. Tenderness: There is abdominal tenderness in the suprapubic area. There is no right CVA tenderness or left CVA tenderness. Lymphadenopathy: Head: Right side of head: No submental, submandibular, tonsillar, preauricular, posterior auricular or occipital adenopathy. Left side of head: No submental, submandibular, tonsillar, preauricular, posterior auricular or occipital adenopathy. Skin: General: Skin is warm and dry. Capillary Refill: Capillary refill takes less than 2 seconds. Neurological: Mental Status: She is alert and oriented to person, place, and time. Psychiatric: Behavior: Behavior is cooperative. ASSESSMENT/PLAN: 1. Dysuria - ICD9: 788.1, ICD10: R30.0 (primary diagnosis) acute 2. Urinary problem - ICD9: V47.4, ICD10: R39.89 3. Acute non-recurrent maxillary sinusitis - ICD9: 461.0, ICD10: J01.00 - URINALYSIS, DIPSTICK ONLY - BACTERIAL CULTURE, URINE - SULFAMETHOXAZOLE 800 MG-TRIMETHOPRIM 160 MG TABLET - UA positive for moses esterase, proteinuria, and nitrates. Will send urine for culture. Will call if antibiotics can be changed based on culture sensitivities. -Will go ahead and treat with Bactrim for UTI and sinusitis. Take as directed and take with food. - Advise she may also use Tylenol or ibuprofen as needed, and OTC cold and cough medications as needed. - Follow-up if symptoms persist or worsen. Libby Wang APRN.DOLORES Differential Diagnoses - UTI, sinusitis, is more likely for the following reason(s): Exam - Pyelonephritis is less likely for the following reason(s): exam Disposition The patient was discharged. OTC Medications were advised: As above documented in this encounter [facility] 02-20-2025 Note HNO ID: [id number] Author: DIPTI SALMON JR, APRN.[employer]BER Service: ? Author Type: Nurse Practitioner Type: Progress Notes Filed: 02/20/2025 12:05 Note Text: [facility] ELOISA Calix is a 44 year old female. Patient presents with: Headache: Headache, dizziness, nasal pressure, ear throbbing x 2 days States she fell last night trying to reach for her migraine medication but doesn't remember if she hit her head Headache Sinus Congestion: - Onset of symptoms on Monday around 0400. - Reports feeling very impacted with poor drainage. - Associated ear pain with sensation of ear domes pounding in rhythm with heartbeat. - Unable to wear bottom dentures due to extra bone pressure. - Using Sudafed and Oxymetazoline with minimal relief. - History of effective treatment with Bactrim and prednisone. - Allergic to penicillins; unclear reaction, but advised by mother to avoid. - Previous use of cefdinir with good results. - Currently using Flonase. Migraines: - History of migraines, currently taking amitriptyline and Topamax. - Recent severe migraine with associated neck tightness and pain. - Visual disturbances described as black flashes. - Taking eletriptan for migraines. - Using ibuprofen 600 mg with slight relief. - History of effective treatment with prednisone 20 mg. Fall: - Recent fall while reaching for medication, resulting in generalized pain. - Denies seeking treatment for fall-related injuries. Nausea: - Reports nausea, attributing it to severe pain. - Previous use of Zofran with good results. Review of Systems Neurological: Positive for headaches. Constitutional: (-) fever Head: (+) headaches, (+) migraines Eyes: (+) visual disturbances Ears/Nose/Mouth/Throat: (+) ear pain, (+) congestion, (+) ear pressure Neck: (+) neck pain Respiratory: (-) cough, (-) shortness of breath Gastrointestinal: (+) nausea, (-) vomiting, (-) diarrhea Musculoskeletal: (+) generalized pain Neurological: (+) dizziness Objective BP 112/63 Pulse 85 Temp 36.6 ?C (97.9 ?F) Resp 18 Wt 53.5 kg (118 lb) LMP 03/08/2022 SpO2 99% BMI 19.64 kg/m? Physical Exam General: No acute distress. HEENT: Bilateral maxillary and frontal sinus tenderness; bilateral turbinate erythema; oropharynx unremarkable; right tympanic membrane pearly flores, no signs of infection; right ear canal unremarkable; left tympanic membrane pearly flores, no signs of infection; left ear canal unremarkable. CV: Regular rhythm, tachycardia, no murmurs. Resp: Lungs clear to auscultation bilaterally, no wheezing, rhonchi, or stridor. Abd: Bowel sounds normal in all four quadrants; no tenderness to palpation. Skin: Warm and dry. {1. Bacterial sinusitis (J32.9) - Bilateral maxillary and frontal sinus tenderness on palpation; bilateral turbinate erythema observed. - History of recurrent sinus infections; previously treated with antibiotics and steroids. - Allergic to penicillins; cefdinir has been effective in the past. - Prescribed cefdinir. - Prescribed prednisone 20 mg daily for 5 days. - Continue using Flonase. 2. Headache, unspecified headache type (R51.9) - Severe headache with associated neck stiffness and visual disturbances; currently on amitriptyline and Topamax. - Prescribed prednisone 20 mg daily for 5 days. - Allergic to Toradol; unable to administer Toradol injection. - Continue eletriptan as needed. 3. Nausea (R11.0) - Likely secondary to severe headache and sinusitis. - Prescribed Zofran. and Recording using [employer] software for draft documentation of the visit was discussed with the patient/authorized inventory representative; all questions welcomed and answered. Patient/authorized inventory representative agreed to proceed Differential Diagnoses - Sinusitis is more likely for the following reason(s): suggested by HANDP Disposition The patient was discharged. Procedures [facility] 02-20-2025 History of Presen t illness Narrative [facility] ELOISA Calix is a 44 year old female. Patient presents with: Headache: Headache, dizziness, nasal pressure, ear throbbing x 2 days States she fell last night trying to reach for her migraine medication but doesn't remember if she hit her head Headache Sinus Congestion: - Onset of symptoms on Monday around 0400. - Reports feeling very impacted with poor drainage. - Associated ear pain with sensation of ear domes pounding in rhythm with heartbeat. - Unable to wear bottom dentures due to extra bone pressure. - Using Sudafed and Oxymetazoline with minimal relief. - History of effective treatment with Bactrim and prednisone. - Allergic to penicillins; unclear reaction, but advised by mother to avoid. - Previous use of cefdinir with good results. - Currently using Flonase. Migraines: - History of migraines, currently taking amitriptyline and Topamax. - Recent severe migraine with associated neck tightness and pain. - Visual disturbances described as black flashes. - Taking eletriptan for migraines. - Using ibuprofen 600 mg with slight relief. - History of effective treatment with prednisone 20 mg. Fall: - Recent fall while reaching for medication, resulting in generalized pain. - Denies seeking treatment for fall-related injuries. Nausea: - Reports nausea, attributing it to severe pain. - Previous use of Zofran with good results. Review of Systems Neurological: Positive for headaches. Constitutional: (-) fever Head: (+) headaches, (+) migraines Eyes: (+) visual disturbances Ears/Nose/Mouth/Throat: (+) ear pain, (+) congestion, (+) ear pressure Neck: (+) neck pain Respiratory: (-) cough, (-) shortness of breath Gastrointestinal: (+) nausea, (-) vomiting, (-) diarrhea Musculoskeletal: (+) generalized pain Neurological: (+) dizziness Objective BP 112/63 Pulse 85 Temp 36.6 C (97.9 F) Resp 18 Wt 53.5 kg (118 lb) LMP 03/08/2022 SpO2 99% BMI 19.64 kg/m Physical Exam General: No acute distress. HEENT: Bilateral maxillary and frontal sinus tenderness; bilateral turbinate erythema; oropharynx unremarkable; right tympanic membrane pearly flores, no signs of infection; right ear canal unremarkable; left tympanic membrane pearly flores, no signs of infection; left ear canal unremarkable. CV: Regular rhythm, tachycardia, no murmurs. Resp: Lungs clear to auscultation bilaterally, no wheezing, rhonchi, or stridor. Abd: Bowel sounds normal in all four quadrants; no tenderness to palpation. Skin: Warm and dry. {1. Bacterial sinusitis (J32.9) - Bilateral maxillary and frontal sinus tenderness on palpation; bilateral turbinate erythema observed. - History of recurrent sinus infections; previously treated with antibiotics and steroids. - Allergic to penicillins; cefdinir has been effective in the past. - Prescribed cefdinir. - Prescribed prednisone 20 mg daily for 5 days. - Continue using Flonase. 2. Headache, unspecified headache type (R51.9) - Severe headache with associated neck stiffness and visual disturbances; currently on amitriptyline and Topamax. - Prescribed prednisone 20 mg daily for 5 days. - Allergic to Toradol; unable to administer Toradol injection. - Continue eletriptan as needed. 3. Nausea (R11.0) - Likely secondary to severe headache and sinusitis. - Prescribed Zofran. and Recording using ambient [employer] software for draft documentation of the visit was discussed with the patient/authorized inventory representative; all questions welcomed and answered. Patient/authorized inventory representative agreed to proceed Differential Diagnoses - Sinusitis is more likely for the following reason(s): suggested by H&P Disposition The patient was discharged. Procedures documented in this encounter [facility] 02-20-2025 Instructions Dipti Salmon Jr., APRN.CNP - 02/20/2025 12:02 PM EDT Begin taking your new Omnicef as directed for your sinus infection. Take prednisone 20 mg daily for 5 days to help with your headache and sinus inflammation. Use the provided Zofran to help control nausea so you can eat, as needed. Continue using your Flonase and your usual migraine medications (amitriptyline and Topamax) without any changes. 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 Remember to avoid penicillins and Toradol due to your allergies. documented in this encounter [facility] 01-16-2025 Note HNO ID: [id number] Author: MAKENNA GONGORA MD Service: ? Author Type: Physician Type: Progress Notes Filed: 02/09/2025 19:24 Note Text: DISTANCE HEALTH VISIT I have communicated my name and active licensure. The patient's identity and physical location were verified at the time of this visit. Either the patient or their legal inventory representative has been informed of the risks and benefits of -- and alternatives to -- treatment through a remote evaluation and consents to proceed with the evaluation remotely. Total time spent on medical discussion: 30 minutes Makenna Gongora MD PROGRESS NOTE-HEADACHE MEDICINE Subjective HPI: Suha is a 44-year-old female with a history of migraines, presenting for follow-up. Suha reports significant improvement in her migraine frequency and severity since starting Nurtec, describing it as a game changer. She has experienced only one migraine, which she attributes to tension. She continues to take Topamax, which she has been on for approximately 20 years. She recently ran out of Topamax for four days due to a change in her 's insurance from [employer] to [employer], resulting in a delay in obtaining a refill. During this period, she noticed a difference in her symptoms but has since resumed the medication. She also uses Eletriptan for acute migraine relief, which effectively aborted her recent migraine. She has been avoiding [id number] analgesics for headaches as advised but continues to use them for back pain. She is also taking amitriptyline and gabapentin for neck pain, prescribed by her primary care physician. She feels that the combination of gabapentin and Nurtec has been particularly beneficial, stating that she feels better than she has in a long time. Headache Description: Severity: 20 days a month are severe, rest are mild to moderate Duration of attacks: almost constant Frequency: daily for the last 15 years Aura: no Location: bilateral. Occipital and sometimes maxillary Quality: pressure and throbbing Triggers: heat, certain neck positional Date of onset: teenager Most common time of the day: anytime Associated symptoms: Nausea: yes Vomiting: yes Photophobia: yes Phonophobia: yes Vision Changes: no Vertigo: off balance sometimes Neck pain: yes Tinnitus: no Sinus Symptoms: no Autonomic Symptoms: no Worsens with simple activity: yes Avoidance of activity: yes Head pain change/trigger by valsalva maneuvers: no Positional headache: no Family hx of headaches: no Prior Treatments: Fioricet Imagin.Images and report of MRI C spine : no significant canal stenosis or disc bulging. 2.CT brain and C spine 08/25/2024:No acute intracranial abnormality. Outpatient Medications as of 01/16/2025 Medication Sig ELIQUIS 5 mg tab(s) Take 1 tablet by mouth every 12 hours. ferrous sulfate 325 mg (65 mg iron) tablet 1 tablet Orally Daily for 30 days ondansetron orally disintegrating (ZOFRAN ODT) 4 mg disintegrating tablet 1 tablet on the tongue and allow to dissolve Orally Once a day fluticasone (FLONASE) 50 mcg/actuation nasal spray 1 spray per nostril twice daily as needed for symptoms. rimegepant (NURTEC ODT) 75 mg disintegrating tablet Take 1 tablet by mouth every other day. For migraine prevention montelukast (SINGULAIR) 10 mg tablet Take 10 mg by mouth daily at bedtime. levothyroxine (SYNTHROID) 112 mcg tablet Take 112 mcg by mouth every morning. Take On an Empty Stomach topiramate (TOPAMAX) 100 mg tablet TAKE 1 TABLET TWICE A DAY pantoprazole DR (PROTONIX) 40 mg tablet TAKE 1 TABLET DAILY amitriptyline (ELAVIL) 25 mg tablet Take 1 tablet by mouth daily at bedtime. (Patient taking differently: Take 20 mg by mouth daily at bedtime.) tiZANidine (ZANAFLEX) 4 mg tablet Take 0.5-1 tablets by mouth three times a day as needed (muscle spasms). eletriptan (RELPAX) 40 mg tablet At migraine onset. may repeat in 2 hours if necessary gabapentin (NEURONTIN) 100 mg capsule Take 2 capsules by mouth daily at bedtime for 30 days. ergocalciferol 50,000 unit capsule (VITAMIN D2, DRISDOL) Take 1 capsule by mouth one time a week. Use as directed. dicyclomine (BENTYL) 20 mg tablet TAKE ONE TABLET BY MOUTH THREE TIMES A DAY NEEDED FOR ABDOMINAL PAIN polyethylene glycol 3350 (MIRALAX, GLYCOLAX) 17 gram/dose powder Take 17 g by mouth once daily. No current facility-administered medications on file as of 01/16/2025. Current medications review: 1.Eletriptan 40 mg helps more than the 20 mg. Most times she needs 1 dose only. 2.Gabapentin 300 mg TID- helps the neck pain. Start date since July 2024 3.Amitriptyline 20 mg- increased more recently from 10 mg. She feels some mild relief of her neck pain. Start date May 2024 4.Topiramate 100 mg BID for 20 years- when she missed doses in the past (last time March of 2023) she missed 1 week of Topiramate the severe increased. 5.OTC analgesics unsur (more content not included)... [facility] 03-27-2025 History of Presen t illness Narrative DISTANCE HEALTH VISIT I have communicated my name and active licensure. The patient's identity and physical location were verified at the time of this visit. Either the patient or their legal inventory representative has been informed of the risks and benefits of -- and alternatives to -- treatment through a remote evaluation and consents to proceed with the evaluation remotely. Total time spent on medical discussion: 30 minutes Makenna Gongora MD PROGRESS NOTE-HEADACHE MEDICINE Subjective HPI: Suha is a 44-year-old female with a history of migraines, presenting for follow-up. Suha reports significant improvement in her migraine frequency and severity since starting Nurtec, describing it as a game changer. She has experienced only one migraine, which she attributes to tension. She continues to take Topamax, which she has been on for approximately 20 years. She recently ran out of Topamax for four days due to a change in her 's insurance from [employer] to [employer], resulting in a delay in obtaining a refill. During this period, she noticed a difference in her symptoms but has since resumed the medication. She also uses Eletriptan for acute migraine relief, which effectively aborted her recent migraine. She has been avoiding [id number] analgesics for headaches as advised but continues to use them for back pain. She is also taking amitriptyline and gabapentin for neck pain, prescribed by her primary care physician. She feels that the combination of gabapentin and Nurtec has been particularly beneficial, stating that she feels better than she has in a long time. Headache Description: Severity: 20 days a month are severe, rest are mild to moderate Duration of attacks: almost constant Frequency: daily for the last 15 years Aura: no Location: bilateral. Occipital and sometimes maxillary Quality: pressure and throbbing Triggers: heat, certain neck positional Date of onset: teenager Most common time of the day: anytime Associated symptoms: Nausea: yes Vomiting: yes Photophobia: yes Phonophobia: yes Vision Changes: no Vertigo: off balance sometimes Neck pain: yes Tinnitus: no Sinus Symptoms: no Autonomic Symptoms: no Worsens with simple activity: yes Avoidance of activity: yes Head pain change/trigger by valsalva maneuvers: no Positional headache: no Family hx of headaches: no Prior Treatments: Fioricet Imagin.Images and report of MRI C spine : no significant canal stenosis or disc bulging. 2.CT brain and C spine 08/25/2024:No acute intracranial abnormality. Outpatient Medications as of 01/16/2025 Medication Sig ELIQUIS 5 mg tab(s) Take 1 tablet by mouth every 12 hours. ferrous sulfate 325 mg (65 mg iron) tablet 1 tablet Orally Daily for 30 days ondansetron orally disintegrating (ZOFRAN ODT) 4 mg disintegrating tablet 1 tablet on the tongue and allow to dissolve Orally Once a day fluticasone (FLONASE) 50 mcg/actuation nasal spray 1 spray per nostril twice daily as needed for symptoms. rimegepant (NURTEC ODT) 75 mg disintegrating tablet Take 1 tablet by mouth every other day. For migraine prevention montelukast (SINGULAIR) 10 mg tablet Take 10 mg by mouth daily at bedtime. levothyroxine (SYNTHROID) 112 mcg tablet Take 112 mcg by mouth every morning. Take On an Empty Stomach topiramate (TOPAMAX) 100 mg tablet TAKE 1 TABLET TWICE A DAY pantoprazole DR (PROTONIX) 40 mg tablet TAKE 1 TABLET DAILY amitriptyline (ELAVIL) 25 mg tablet Take 1 tablet by mouth daily at bedtime. (Patient taking differently: Take 20 mg by mouth daily at bedtime.) tiZANidine (ZANAFLEX) 4 mg tablet Take 0.5-1 tablets by mouth three times a day as needed (muscle spasms). eletriptan (RELPAX) 40 mg tablet At migraine onset. may repeat in 2 hours if necessary gabapentin (NEURONTIN) 100 mg capsule Take 2 capsules by mouth daily at bedtime for 30 days. ergocalciferol 50,000 unit capsule (VITAMIN D2, DRISDOL) Take 1 capsule by mouth one time a week. Use as directed. dicyclomine (BENTYL) 20 mg tablet TAKE ONE TABLET BY MOUTH THREE TIMES A DAY NEEDED FOR ABDOMINAL PAIN polyethylene glycol 3350 (MIRALAX, GLYCOLAX) 17 gram/dose powder Take 17 g by mouth once daily. No current facility-administered medications on file as of 01/16/2025. Current medications review: 1.Eletriptan 40 mg helps more than the 20 mg. Most times she needs 1 dose only. 2.Gabapentin 300 mg TID- helps the neck pain. Start date since July 2024 3.Amitriptyline 20 mg- increased more recently from 10 mg. She feels some mild relief of her neck pain. Start date May 2024 4.Topiramate 100 mg BID for 20 years- when she missed doses in the past (last time March of 2023) she missed 1 week of Topiramate the severe increased. 5.OTC analgesics unsure of amount PAST MEDICAL HISTORY Diagnosis Date Anxiety and depression GERD (gastroesophageal reflux disease) H/O protein C deficiency H/O protein S deficiency History of DVT (deep vein thrombosis) 10/04/2021 Hypothyroid Malignant melanoma (HCC) Migraines Other specified hypothyroidism 10/04/2021 TMJ (temporomandibular joint disorder) ALLERGIES Allergen Reactions Latex Rash Penicillins Anaphylaxis Tape [Adhesive Tape* Rash Toradol [Ketorolac] Swelling Tongue swelling PHYSICAL EXAMINATION: via virtual observation General appearance: Well appearing, alert, in no acute distress, well-hydrated, well nourished. Skin: no jaundice Head: Normocephalic, no masses, atraumatic. Eyes: Anicteric sclera. Extraocular movements are grossly intact. Lungs: unlabored on room air Neuro: Negative findings: speech normal, mental status intact ASSESSMENT: -Chronic daily headaches for the last 15 years. -Chronic migraine without aura -Chronic neck pain. Not going to pain clinic anymore. PCP wants me to prescribe neck pain medication -At risk of medication overuse headache RECOMMENDATIONS: 1. Abortive therapy: -continue Eletriptan 40 mg -avoid OTC analgesics 2. Preventive therapy: -continue Nurtec -continue Topiramate 100 mg BID 3. For neck pain: -continue Amitriptyline 20 mg -Continue gabapentin 300 mg 3 times a day 4.Follow up in 6 months Makenna Gongora MD [facility] Neu[facility] [place] documented in this encounter [facility] 12-18-2024 Instructions Dipti Salmon Jr., DATA SCIENCE AND IOT MANAGER.PREPARED FOODS SERVICE TEAM MEMBER - 12/18/2024 2:37 PM EST Take medications as prescribed. Follow-up with PCP or return if symptoms do not resolve visit Urgent Care. documented in this encounter [facility] 12-18-2024 Note HNO ID: [id number] Author: DIPTI SALMON JR, APRN.DOLORES Service: ? Author Type: Nurse Practitioner Type: Progress Notes Filed: 12/18/2024 14:40 Note Text: Suha Calix is a 44 year old female who presents with Rhinitis (Started 3 days ago ), Nasal Congestion (Started 3 days ago ), Sinus Problem (Pain /Started 3 days ago /), and Headache (Started 3 days ago ) 44-year-old female presents today complaining of rhinitis, nasal congestion and pain, headache, by 3 days. Patient states when she gets a sinus infection she will have a headache and feels the 2 are related. She states she does have some ear pain but is unsure of what is causing that. The history is provided by the patient. PAST MEDICAL HISTORY Diagnosis Date Anxiety and depression GERD (gastroesophageal reflux disease) H/O protein C deficiency H/O protein S deficiency History of DVT (deep vein thrombosis) 10/04/2021 Hypothyroid Malignant melanoma (HCC) Migraines Other specified hypothyroidism 10/04/2021 TMJ (temporomandibular joint disorder) ACTIVE PROBLEM LIST H/O Protein C Deficiency H/O Protein S Deficiency Migraine Malignant Melanoma (Hcc) History of Dvt (Deep Vein Thrombosis) Hypothyroidism Neck Pain Right Leg Pain Left Leg Pain Myofascial Pain Syndrome Uti Symptoms Abdominal Pain Chronic Pain Syndrome Sacroiliitis (Hcc) Acute Right-Sided Low Back Pain With Right-Sided Sciatica Encounter for Screening Mammogram for Breast Cancer Adjustment Disorder With Mixed Anxiety and Depressed Mood Headaches Hypothyroidism, Unspecified 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 ferrous sulfate 325 mg (65 mg iron) tablet 1 tablet Orally Daily for 30 days rimegepant (NURTEC ODT) 75 mg disintegrating tablet Take 1 tablet by mouth every other day. For migraine prevention 16 tablet 5 montelukast (SINGULAIR) 10 mg tablet Take 10 mg by mouth daily at bedtime. levothyroxine (SYNTHROID) 112 mcg tablet Take 112 mcg by mouth every morning. Take On an Empty Stomach topiramate (TOPAMAX) 100 mg tablet TAKE 1 TABLET TWICE A DAY [address] (PROTONIX) 40 mg tablet TAKE 1 TABLET DAILY 90 tablet 3 tiZANidine (ZANAFLEX) 4 mg tablet Take 0.5-1 tablets by mouth three times a day as needed (muscle spasms). 90 tablet 3 eletriptan (RELPAX) 40 mg tablet At migraine onset. may repeat in 2 hours if necessary 12 tablet 5 gabapentin (NEURONTIN) 100 mg capsule Take 2 capsules by mouth daily at bedtime for 30 days. 60 capsule 0 dicyclomine (BENTYL) 20 mg tablet TAKE ONE TABLET BY MOUTH THREE TIMES A DAY NEEDED FOR ABDOMINAL PAIN 270 tablet 1 polyethylene glycol 3350 (MIRALAX, GLYCOLAX) 17 gram/dose powder Take 17 g by mouth once daily. 510 g 4 ondansetron orally disintegrating (ZOFRAN ODT) 4 mg disintegrating tablet 1 tablet on the tongue and allow to dissolve Orally Once a day amitriptyline (ELAVIL) 25 mg tablet Take 1 tablet by mouth daily at bedtime. (Patient taking differently: Take 20 mg by mouth daily at bedtime.) 30 tablet 0 ergocalciferol 50,000 unit capsule (VITAMIN D2, DRISDOL) Take 1 capsule by mouth one time a week. Use as directed. 12 capsule 1 No current facility-administered medications for this visit. Social History Tobacco Use Smoking status: Former Current packs/day: 0.00 Average packs/day: 1 pack/day for 22.0 years (22.0 ttl pk-yrs) Types: Cigarettes Start date: 03/23/1994 Quit date: 03/23/2016 Years since quittin.7 Passive exposure: Past Smokeless tobacco: Never Vaping Use Vaping status: Never Used Substance Use Topics Alcohol use: Not Currently Drug use: Yes Types: Marijuana Comment: Only medical marijuania Alcohol Use: Not Currently Tobacco Use: Types: Cigarettes FAMILY HISTORY Problem Relation Age of Onset Clotting Disorder Father Protein C and S deficiency No Known Problems Mother Clotting Disorder Paternal Grandfather Anesthesia Problems No Family History Review of Systems Constitutional: Negative for fever. HENT: Positive for congestion, ear pain and sinus pain. Respiratory: Negative for cough. Cardiovascular: Negative for chest pain. Gastrointestinal: Negative for abdominal pain and vomiting. Skin: Negative for rash. Neurological: Positive for headaches. BP 105/71 Pulse 103 Temp (Src) 98 (Temporal) Resp 17 Wt 118 lb 9.6 oz (53.8kg) SpO2 100% LMP 03/08/2022 Physical Exam Vitals reviewed. Constitutional: Appearance: Normal appearance. HENT: Head: Normocephalic and atraumatic. Right Ear: Tympanic membrane and ear canal normal. Left Ear: Tympanic membrane and ear canal normal. Nose: Congestion and rhinorrhea present. Comments: Mild tenderness of bilateral maxillary sinuses. Bilateral turbinates are erythematous Mouth/Throat: Mouth: Mucous membrane (more content not included)... [facility] 12-18-2024 History of Presen t illness Narrative Suha Calix is a 44 year old female who presents with Rhinitis (Started 3 days ago ), Nasal Congestion (Started 3 days ago ), Sinus Problem (Pain /Started 3 days ago /), and Headache (Started 3 days ago ) 44-year-old female presents today complaining of rhinitis, nasal congestion and pain, headache, by 3 days. Patient states when she gets a sinus infection she will have a headache and feels the 2 are related. She states she does have some ear pain but is unsure of what is causing that. The history is provided by the patient. PAST MEDICAL HISTORY Diagnosis Date Anxiety and depression GERD (gastroesophageal reflux disease) H/O protein C deficiency H/O protein S deficiency History of DVT (deep vein thrombosis) 10/04/2021 Hypothyroid Malignant melanoma (HCC) Migraines Other specified hypothyroidism 10/04/2021 TMJ (temporomandibular joint disorder) ACTIVE PROBLEM LIST H/O Protein C Deficiency H/O Protein S Deficiency Migraine Malignant Melanoma (Hcc) History of Dvt (Deep Vein Thrombosis) Hypothyroidism Neck Pain Right Leg Pain Left Leg Pain Myofascial Pain Syndrome Uti Symptoms Abdominal Pain Chronic Pain Syndrome Sacroiliitis (Hcc) Acute Right-Sided Low Back Pain With Right-Sided Sciatica Encounter for Screening Mammogram for Breast Cancer Adjustment Disorder With Mixed Anxiety and Depressed Mood Headaches Hypothyroidism, Unspecified 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 ferrous sulfate 325 mg (65 mg iron) tablet 1 tablet Orally Daily for 30 days rimegepant (NURTEC ODT) 75 mg disintegrating tablet Take 1 tablet by mouth every other day. For migraine prevention 16 tablet 5 montelukast (SINGULAIR) 10 mg tablet Take 10 mg by mouth daily at bedtime. levothyroxine (SYNTHROID) 112 mcg tablet Take 112 mcg by mouth every morning. Take On an Empty Stomach topiramate (TOPAMAX) 100 mg tablet TAKE 1 TABLET TWICE A DAY [address] (PROTONIX) 40 mg tablet TAKE 1 TABLET DAILY 90 tablet 3 tiZANidine (ZANAFLEX) 4 mg tablet Take 0.5-1 tablets by mouth three times a day as needed (muscle spasms). 90 tablet 3 eletriptan (RELPAX) 40 mg tablet At migraine onset. may repeat in 2 hours if necessary 12 tablet 5 gabapentin (NEURONTIN) 100 mg capsule Take 2 capsules by mouth daily at bedtime for 30 days. 60 capsule 0 dicyclomine (BENTYL) 20 mg tablet TAKE ONE TABLET BY MOUTH THREE TIMES A DAY NEEDED FOR ABDOMINAL PAIN 270 tablet 1 polyethylene glycol 3350 (MIRALAX, GLYCOLAX) 17 gram/dose powder Take 17 g by mouth once daily. 510 g 4 ondansetron orally disintegrating (ZOFRAN ODT) 4 mg disintegrating tablet 1 tablet on the tongue and allow to dissolve Orally Once a day amitriptyline (ELAVIL) 25 mg tablet Take 1 tablet by mouth daily at bedtime. (Patient taking differently: Take 20 mg by mouth daily at bedtime.) 30 tablet 0 ergocalciferol 50,000 unit capsule (VITAMIN D2, DRISDOL) Take 1 capsule by mouth one time a week. Use as directed. 12 capsule 1 No current facility-administered medications for this visit. Social History Tobacco Use Smoking status: Former Current packs/day: 0.00 Average packs/day: 1 pack/day for 22.0 years (22.0 ttl pk-yrs) Types: Cigarettes Start date: 03/23/1994 Quit date: 03/23/2016 Years since quittin.7 Passive exposure: Past Smokeless tobacco: Never Vaping Use Vaping status: Never Used Substance Use Topics Alcohol use: Not Currently Drug use: Yes Types: Marijuana Comment: Only medical marijuania Alcohol Use: Not Currently Tobacco Use: Types: Cigarettes FAMILY HISTORY Problem Relation Age of Onset Clotting Disorder Father Protein C and S deficiency No Known Problems Mother Clotting Disorder Paternal Grandfather Anesthesia Problems No Family History Review of Systems Constitutional: Negative for fever. HENT: Positive for congestion, ear pain and sinus pain. Respiratory: Negative for cough. Cardiovascular: Negative for chest pain. Gastrointestinal: Negative for abdominal pain and vomiting. Skin: Negative for rash. Neurological: Positive for headaches. BP 105/71 Pulse 103 Temp (Src) 98 (Temporal) Resp 17 Wt 118 lb 9.6 oz (53.8kg) SpO2 100% LMP 03/08/2022 Physical Exam Vitals reviewed. Constitutional: Appearance: Normal appearance. HENT: Head: Normocephalic and atraumatic. Right Ear: Tympanic membrane and ear canal normal. Left Ear: Tympanic membrane and ear canal normal. Nose: Congestion and rhinorrhea present. Comments: Mild tenderness of bilateral maxillary sinuses. Bilateral turbinates are erythematous Mouth/Throat: Mouth: Mucous membranes are moist. Pharynx: Oropharynx is clear. No oropharyngeal exudate or posterior oropharyngeal erythema. Eyes: Conjunctiva/sclera: Conjunctivae normal. Cardiovascular: Rate and Rhythm: Normal rate and regular rhythm. Heart sounds: Normal heart sounds. Pulmonary: Effort: Pulmonary effort is normal. Breath sounds: Normal breath sounds. Abdominal: General: Abdomen is flat. Bowel sounds are normal. Palpations: Abdomen is soft. Musculoskeletal: Cervical back: Neck supple. Lymphadenopathy: Cervical: No cervical adenopathy. Skin: General: Skin is warm and dry. Neurological: Mental Status: She is alert and oriented to person, place, and time. Assessment & Plan Bacterial sinusitis Based on exam findings I diagnosed patient with a sinusitis. Due to her her allergies to penicillin I prescribed her doxycycline. I also prescribed her some Flonase to see if that helps with decreasing her symptoms. I feel her headache is likely secondary to the sinus infection. I offered her ibuprofen but patient stated she has ibuprofen at home that she will use. Patient was informed to hold the iron supplementation while she is on the Doxy and started again once she is finished. Patient stated understanding and agreement. Orders: doxycycline hyclate (VIBRAMYCIN) 100 mg capsule; Take 1 capsule by mouth two times a day for 10 days. fluticasone (FLONASE) 50 mcg/actuation nasal spray; 1 spray per nostril twice daily as needed for symptoms. Voice recognition software used in some of the charting. Errors may have occurred. Contact the office for any concerns. Dipti Salmon Jr, APRN.PREPARED [employer]ICE TEAM MEMBER Patient declined depression screening at this time. Kings Magaña LPN documented in this encounter [facility] 12-18-2024 Note HNO ID: [id number] Author: KINGS MAGAÑA LPN Service: ? Author Type: LICENSED NURSE Type: Progress Notes Filed: 12/18/2024 14:40 Note Text: Patient declined depression screening at this time. Kings Magaña LPN [facility] 11-27-2024 Note HNO ID: [id number] Author: MAKENNA GONGORA MD Service: ? Author Type: Physician Type: Progress Notes Filed: 11/27/2024 17:12 Note Text: PROGRESS NOTE-HEADACHE MEDICINE SERVICE DATE: November 27, 2024 Location: [facility] Participants: Patient and Provider Subjective HPI: Suha Calix is here for follow up. Last seen on 08/20/2024. Daily headaches for the last 15 years. Started Aimovig 70 mg for the last 4 months(), feels it gave her more headaches. I asked her to follow-up with pain clinic for her neck pain, she actually stopped going altogether, she says they were not doing any procedures and just refilling medications. More recently her PCP made changes on neck pain medication and told her that from today on I had to take over the neck pain regimen, although he made recent increases to both medications for neck pain. Headache Description: Severity: 20 days a month are severe, rest are mild to moderate Duration of attacks: almost constant Frequency: daily for the last 15 years Aura: no Location: bilateral. Occipital and sometimes maxillary Quality: pressure and throbbing Triggers: heat, certain neck positional Date of onset: teenager Most common time of the day: anytime Associated symptoms: Nausea: yes Vomiting: yes Photophobia: yes Phonophobia: yes Vision Changes: no Vertigo: off balance sometimes Neck pain: yes Tinnitus: no Sinus Symptoms: no Autonomic Symptoms: no Worsens with simple activity: yes Avoidance of activity: yes Head pain change/trigger by valsalva maneuvers: no Positional headache: no Family hx of headaches: no Prior Treatments: Fioricet Imagin.Images and report of MRI C spine : no significant canal stenosis or disc bulging. 2.CT brain and C spine 08/25/2024:No acute intracranial abnormality. Outpatient Medications as of 11/27/2024 Medication Sig montelukast (SINGULAIR) 10 mg tablet Take 10 mg by mouth daily at bedtime. AIMOVIG AUTOINJECTOR 70 mg/mL auto-injector Inject 70 mg subcutaneously once every month. levothyroxine (SYNTHROID) 112 mcg tablet Take 112 mcg by mouth every morning. Take On an Empty Stomach topiramate (TOPAMAX) 100 mg tablet TAKE 1 TABLET TWICE A DAY pantoprazole DR (PROTONIX) 40 mg tablet TAKE 1 TABLET DAILY tiZANidine (ZANAFLEX) 4 mg tablet Take 0.5-1 tablets by mouth three times a day as needed (muscle spasms). eletriptan (RELPAX) 40 mg tablet At migraine onset. may repeat in 2 hours if necessary apixaban (ELIQUIS) 5 mg tab(s) Take 1 tablet by mouth two times a day. dicyclomine (BENTYL) 20 mg tablet TAKE ONE TABLET BY MOUTH THREE TIMES A DAY NEEDED FOR ABDOMINAL PAIN polyethylene glycol 3350 (MIRALAX, GLYCOLAX) 17 gram/dose powder Take 17 g by mouth once daily. amitriptyline (ELAVIL) 25 mg tablet Take 1 tablet by mouth daily at bedtime. gabapentin (NEURONTIN) 100 mg capsule Take 2 capsules by mouth daily at bedtime for 30 days. ergocalciferol 50,000 unit capsule (VITAMIN D2, DRISDOL) Take 1 capsule by mouth one time a week. Use as directed. No current facility-administered medications on file as of 11/27/2024. Current medications review: 1.Eletriptan 40 mg helps more than the 20 mg. Most times she needs 1 dose only. 2.Gabapentin 300 mg TID- helps the neck pain, recently increased by PCP. Start date since July 2024 3.Amitriptyline 20 mg- increased more recently from 10 mg. She feels some mild relief of her neck pain. Start date May 2024 4.Topiramate 100 mg BID for 20 years- when she missed doses in the past (last time March of 2023) she missed 1 week of Topiramate the severe increased. 5.OTC analgesics unsure of amount PAST MEDICAL HISTORY Diagnosis Date Anxiety and depression GERD (gastroesophageal reflux disease) H/O protein C deficiency H/O protein S deficiency History of DVT (deep vein thrombosis) 10/04/2021 Hypothyroid Malignant melanoma (HCC) Migraines Other specified hypothyroidism 10/04/2021 TMJ (temporomandibular joint disorder) ALLERGIES Allergen Reactions Latex Rash Penicillins Anaphylaxis Tape [Adhesive Tape* Rash Toradol [Ketorolac] Swelling Tongue swelling Vitals: BP 101/70 Pulse 86 Ht 165.1 cm (5' 5) Wt 56.6 kg (124 lb 12.5 oz) LMP 03/08/2022 BMI 20.76 kg/m? ASSESSMENT: -Chronic daily headaches for the last 15 years. -Chronic migraine without aura -Chronic neck pain. Not going to pain clinic anymore. PCP wants me to prescribe neck pain medication -At risk of medication overuse headache RECOMMENDATIONS: 1. Abortive therapy: -continue Eletriptan 40 mg -avoid OTC analgesics 2. Preventive therapy: -trial of Nurtec. written information provided -continue Topiramate 100 mg BID 3. For neck pain: -continue Amitriptyline 20 mg -Continue gabapentin 300 mg 3 times a day 4.Follow up in 2 months Of the 40 minute long appointment visit, I spent at least 50% (more content not included)... [facility] 11-27-2024 History of Presen t illness Narrative PROGRESS NOTE-HEADACHE MEDICINE SERVICE DATE: November 27, 2024 Location: [facility] [place] Participants: Patient and Provider Subjective HPI: Suha Garcia Calix is here for follow up. Last seen on 08/20/2024. Daily headaches for the last 15 years. Started Aimovig 70 mg for the last 4 months(), feels it gave her more headaches. I asked her to follow-up with pain clinic for her neck pain, she actually stopped going altogether, she says they were not doing any procedures and just refilling medications. More recently her PCP made changes on neck pain medication and told her that from today on I had to take over the neck pain regimen, although he made recent increases to both medications for neck pain. Headache Description: Severity: 20 days a month are severe, rest are mild to moderate Duration of attacks: almost constant Frequency: daily for the last 15 years Aura: no Location: bilateral. Occipital and sometimes maxillary Quality: pressure and throbbing Triggers: heat, certain neck positional Date of onset: teenager Most common time of the day: anytime Associated symptoms: Nausea: yes Vomiting: yes Photophobia: yes Phonophobia: yes Vision Changes: no Vertigo: off balance sometimes Neck pain: yes Tinnitus: no Sinus Symptoms: no Autonomic Symptoms: no Worsens with simple activity: yes Avoidance of activity: yes Head pain change/trigger by valsalva maneuvers: no Positional headache: no Family hx of headaches: no Prior Treatments: Fioricet Imagin.Images and report of MRI C spine : no significant canal stenosis or disc bulging. 2.CT brain and C spine 08/25/2024:No acute intracranial abnormality. Outpatient Medications as of 11/27/2024 Medication Sig montelukast (SINGULAIR) 10 mg tablet Take 10 mg by mouth daily at bedtime. AIMOVIG AUTOINJECTOR 70 mg/mL auto-injector Inject 70 mg subcutaneously once every month. levothyroxine (SYNTHROID) 112 mcg tablet Take 112 mcg by mouth every morning. Take On an Empty Stomach topiramate (TOPAMAX) 100 mg tablet TAKE 1 TABLET TWICE A DAY pantoprazole DR (PROTONIX) 40 mg tablet TAKE 1 TABLET DAILY tiZANidine (ZANAFLEX) 4 mg tablet Take 0.5-1 tablets by mouth three times a day as needed (muscle spasms). eletriptan (RELPAX) 40 mg tablet At migraine onset. may repeat in 2 hours if necessary apixaban (ELIQUIS) 5 mg tab(s) Take 1 tablet by mouth two times a day. dicyclomine (BENTYL) 20 mg tablet TAKE ONE TABLET BY MOUTH THREE TIMES A DAY NEEDED FOR ABDOMINAL PAIN polyethylene glycol 3350 (MIRALAX, GLYCOLAX) 17 gram/dose powder Take 17 g by mouth once daily. amitriptyline (ELAVIL) 25 mg tablet Take 1 tablet by mouth daily at bedtime. gabapentin (NEURONTIN) 100 mg capsule Take 2 capsules by mouth daily at bedtime for 30 days. ergocalciferol 50,000 unit capsule (VITAMIN D2, DRISDOL) Take 1 capsule by mouth one time a week. Use as directed. No current facility-administered medications on file as of 11/27/2024. Current medications review: 1.Eletriptan 40 mg helps more than the 20 mg. Most times she needs 1 dose only. 2.Gabapentin 300 mg TID- helps the neck pain, recently increased by PCP. Start date since July 2024 3.Amitriptyline 20 mg- increased more recently from 10 mg. She feels some mild relief of her neck pain. Start date May 2024 4.Topiramate 100 mg BID for 20 years- when she missed doses in the past (last time March of 2023) she missed 1 week of Topiramate the severe increased. 5.OTC analgesics unsure of amount PAST MEDICAL HISTORY Diagnosis Date Anxiety and depression GERD (gastroesophageal reflux disease) H/O protein C deficiency H/O protein S deficiency History of DVT (deep vein thrombosis) 10/04/2021 Hypothyroid Malignant melanoma (HCC) Migraines Other specified hypothyroidism 10/04/2021 TMJ (temporomandibular joint disorder) ALLERGIES Allergen Reactions Latex Rash Penicillins Anaphylaxis Tape [Adhesive Tape* Rash Toradol [Ketorolac] Swelling Tongue swelling Vitals: BP 101/70 Pulse 86 Ht 165.1 cm (5' 5) Wt 56.6 kg (124 lb 12.5 oz) LMP 03/08/2022 BMI 20.76 kg/m ASSESSMENT: -Chronic daily headaches for the last 15 years. -Chronic migraine without aura -Chronic neck pain. Not going to pain clinic anymore. PCP wants me to prescribe neck pain medication -At risk of medication overuse headache RECOMMENDATIONS: 1. Abortive therapy: -continue Eletriptan 40 mg -avoid OTC analgesics 2. Preventive therapy: -trial of Nurtec. written information provided -continue Topiramate 100 mg BID 3. For neck pain: -continue Amitriptyline 20 mg -Continue gabapentin 300 mg 3 times a day 4.Follow up in 2 months Of the 40 minute long appointment visit, I spent at least 50% of the [id number] time in counseling, explanation of diagnosis, planning of further management, and answering all questions. Makenna Gongora MD [facility] [place] documented in this encounter [facility] 11-21-2024 Instructions Madison Denny PA-C - 11/21/2024 8:44 AM EST The OARRS report has been reviewed and is consistent with the patients medical history and medication intake. Continue with the tizanidine and compounding cream. Continue using TENS unit. The patient was previously given a brochure regarding the [facility]. Continue with core strengthening and range of motion exercises Continue with the topamax and eletriptan for the migraines. She will be released from our office and will follow up with her PCP for her medications. Supervising Physiciain - Dr. Misael Wall MD documented in this encounter [facility] 11-21-2024 Note HNO ID: [id number] Author: MADISON DENNY PA-C Service: ? Author Type: Physician Toggle Press Operator Type: Progress Notes Filed: 11/21/2024 08:53 Note Text: This note was created using [employer]. Subjective Suha Calix is a 44 year old female. The patient primarily being seen for neck and back pain Patient was last seen on: 08/28/24 At that time, the treatment plan was: see notes Current Meds: tizanidine - am, amitriptyline - pm, compound cream - prn Efficacy: some Side effects: drowsy TENS unit: yes How often used: daily Benefit: helps Physical Therapy: 2021 for back Last UDS: not on narcotics Last injection: 06/11/24 - TPI OARRS reviewed At the present time, the patient reports benefit with her present analgesic therapy. She denies any adverse effects. Since her previous visit, she denies any hospitalizations or ER visits. Otherwise, she has nothing further to discuss at this time. She states she is going to have her PCP take over the meds and is going to see neurology for her migraines. 11/21/2024 Pain Disability Index Family/Home Responsibilities: This category includes chores or duties performed around the house (e.g. yard work), errands or favors for other family members (e.g. driving the children to school) 6 Recreation: This category includes hobbies, sports, and other similar leisure time activities 6 Social Activity: This category refers to activities which involve participation with friends and acquaintances, other than family members. It includes parties, theater, concerts, dinning out, and other social functions 5 Occupation: This category refers to activities that are a part of or directly related to ones' job. This includes non-paying jobs as well, such as that of a housewife or volunteer worker 7 Sexual Behavior: This category refers to the frequency and quality of one's sex life 4 Self Care: This category includes activities which involve personal maintenance and independent daily living (e.g. taking a shower, driving, getting dress, etc) 3 Life Support Activity: This category refers to basic-life supporting behaviors such as eating, sleeping, and breathing 4 PDI Score 35 09/23/2024 11/21/2024 INTAKE PAIN ASSESSMENT Are you having pain associated with your visit today? Yes, Provider notified Yes, Provider notified Pain Scales Verbal (Numeric Rating or Visual Analog Scale) Verbal (Numeric Rating or Visual Analog Scale) Pain Level 7 6 Pain Location Ear-Bilateral Neck Description Aching;Sore;Throbbing Aching;Sharp Duration Amount of Time 1 16 Duration Units Weeks Years Frequency Continuous Continuous Intervention/Comfort measure Heat;Relaxation;Pillow support;Medication HPI PAST MEDICAL HISTORY Diagnosis Date Anxiety and depression GERD (gastroesophageal reflux disease) H/O protein C deficiency H/O protein S deficiency History of DVT (deep vein thrombosis) 10/04/2021 Hypothyroid Malignant melanoma (HCC) Migraines Other specified hypothyroidism 10/04/2021 TMJ (temporomandibular joint disorder) PAST SURGICAL HISTORY Procedure Laterality Date ARTERY TO VEIN SHUNT 06/28/[address] [facility] SECTION SINGLE 1997 COLONOSCOPY SCREENING 01/16/2023 EGD W/O BRSH SPEC VARICIES INJ 01/16/2023 ESOPHAGOGASTRODUODENOSCOPY TRANSORAL DIAGNOSTIC 03/23/2013 EGD HAND SURGERY HX Left trigger finger release 3 rd finger HYSTEROSCOPY, DIAGNOSTIC (SEPARATE 10/18/2021 IR IVC FILTER PLACEMENT 2010 MALIGNANT MELANOMA - WIDE EXCISION IN ANY AREA AND MUST INCLUDE > 1CM MARGINS AND LAYERED CLOSURE TONSILLECTOMY AND ADENOIDECTOMY VAGINAL HYSTERECTOMY 03/08/2022 total Social History Tobacco Use Smoking status: Former Current packs/day: 0.00 Average packs/day: 1 pack/day for 22.0 years (22.0 ttl pk-yrs) Types: Cigarettes Start date: 03/23/1994 Quit date: 03/23/2016 Years since quittin.6 Passive exposure: Past Smokeless tobacco: Never Vaping Use Vaping status: Never Used Substance Use Topics Alcohol use: Not Currently Drug use: Yes Types: Marijuana Comment: Only medical [facility] Review of Systems Constitutional: Negative for fever and unexpected weight change. Musculoskeletal: Positive for back pain. + neck pain, back pain, joint pain/swelling, muscle cramps/weakness, stiffness, arthritis, and leg pain with exertion. Objective BP 101/70 (BP Site: Left Arm, BP Position: Sitting) Pulse 86 Resp 16 LMP 03/08/2022 SpO2 100% Physical Exam Vitals and nursing note reviewed. Constitutional: Appearance: Normal appearance. She is well-developed, well-groomed and normal weight. HENT: Head: Normocephalic and atraumatic. Right Ear: Hearing normal. Left Ear: Hearing normal. Eyes: Conjunctiva/sclera: Conjunctivae normal. Musculoskeletal: Comments: She walks with a normal gait. She has tenderness to palpation in the cervical region with spasms noted in the (more content not included)... [facility] 11-21-2024 History of Presen t illness Narrative This note was created using [employer]. Subjective Suha Calix is a 44 year old female. The patient primarily being seen for neck and back pain Patient was last seen on: 08/28/24 At that time, the treatment plan was: see notes Current Meds: tizanidine - am, amitriptyline - pm, compound cream - prn Efficacy: some Side effects: drowsy TENS unit: yes How often used: daily Benefit: helps Physical Therapy: 2021 for back Last UDS: not on narcotics Last injection: 06/11/24 - TPI OARRS reviewed At the present time, the patient reports benefit with her present analgesic therapy. She denies any adverse effects. Since her previous visit, she denies any hospitalizations or ER visits. Otherwise, she has nothing further to discuss at this time. She states she is going to have her PCP take over the meds and is going to see neurology for her migraines. 11/21/2024 Pain Disability Index Family/Home Responsibilities: This category includes chores or duties performed around the house (e.g. yard work), errands or favors for other family members (e.g. driving the children to school) 6 Recreation: This category includes hobbies, sports, and other similar leisure time activities 6 Social Activity: This category refers to activities which involve participation with friends and acquaintances, other than family members. It includes parties, theater, concerts, dinning out, and other social functions 5 Occupation: This category refers to activities that are a part of or directly related to ones' job. This includes non-paying jobs as well, such as that of a housewife or volunteer worker 7 Sexual Behavior: This category refers to the frequency and quality of one's sex life 4 Self Care: This category includes activities which involve personal maintenance and independent daily living (e.g. taking a shower, driving, getting dress, etc) 3 Life Support Activity: This category refers to basic-life supporting behaviors such as eating, sleeping, and breathing 4 PDI Score 35 09/23/2024 11/21/2024 INTAKE PAIN ASSESSMENT Are you having pain associated with your visit today? Yes, Provider notified Yes, Provider notified Pain Scales Verbal (Numeric Rating or Visual Analog Scale) Verbal (Numeric Rating or Visual Analog Scale) Pain Level 7 6 Pain Location Ear-Bilateral Neck Description Aching;Sore;Throbbing Aching;Sharp Duration Amount of Time 1 16 Duration Units Weeks Years Frequency Continuous Continuous Intervention/Comfort measure Heat;Relaxation;Pillow support;Medication HPI PAST MEDICAL HISTORY Diagnosis Date Anxiety and depression GERD (gastroesophageal reflux disease) H/O protein C deficiency H/O protein S deficiency History of DVT (deep vein thrombosis) 10/04/2021 Hypothyroid Malignant melanoma (HCC) Migraines Other specified hypothyroidism 10/04/2021 TMJ (temporomandibular joint disorder) PAST SURGICAL HISTORY Procedure Laterality Date ARTERY TO VEIN SHUNT 06/28/[address] [facility] SECTION SINGLE 1998 COLONOSCOPY SCREENING 01/16/2023 EGD W/O BRSH SPEC VARICIES INJ 01/16/2023 ESOPHAGOGASTRODUODENOSCOPY TRANSORAL DIAGNOSTIC 03/23/2013 EGD HAND SURGERY HX Left trigger finger release 3 rd finger HYSTEROSCOPY, DIAGNOSTIC (SEPARATE 10/18/2021 IR IVC FILTER PLACEMENT 2010 MALIGNANT MELANOMA - WIDE EXCISION IN ANY AREA AND MUST INCLUDE > 1CM MARGINS & LAYERED CLOSURE TONSILLECTOMY & ADENOIDECTOMY <AGE 12 VAGINAL HYSTERECTOMY 03/08/2022 total Social History Tobacco Use Smoking status: Former Current packs/day: 0.00 Average packs/day: 1 pack/day for 22.0 years (22.0 ttl pk-yrs) Types: Cigarettes Start date: 03/23/1994 Quit date: 03/23/2016 Years since quittin.6 Passive exposure: Past Smokeless tobacco: Never Vaping Use Vaping status: Never Used Substance Use Topics Alcohol use: Not Currently Drug use: Yes Types: Marijuana Comment: Only medical [facility] Review of Systems Constitutional: Negative for fever and unexpected weight change. Musculoskeletal: Positive for back pain. + neck pain, back pain, joint pain/swelling, muscle cramps/weakness, stiffness, arthritis, and leg pain with exertion. Objective BP 101/70 (BP Site: Left Arm, BP Position: Sitting) Pulse 86 Resp 16 LMP 03/08/2022 SpO2 100% Physical Exam Vitals and nursing note reviewed. Constitutional: Appearance: Normal appearance. She is well-developed, well-groomed and normal weight. HENT: Head: Normocephalic and atraumatic. Right Ear: Hearing normal. Left Ear: Hearing normal. Eyes: Conjunctiva/sclera: Conjunctivae normal. Musculoskeletal: Comments: She walks with a normal gait. She has tenderness to palpation in the cervical region with spasms noted in the trapezius, rhomboid, and paraspinal muscles. Strength is 5/5 throughout. Sensation is intact to light touch throughout. SLR is negative. She has tenderness to palpation over the right SI joint. +FABERs, compression, and distraction test. Neurological: Mental Status: She is alert and oriented to person, place, and time. Psychiatric: Attention and Perception: Attention and perception normal. Mood and Affect: Mood and affect normal. Speech: Speech normal. Behavior: Behavior normal. Behavior is cooperative. Thought Content: Thought content normal. Judgment: Judgment normal. Assessment and Plan ASSESSMENT/PLAN: 1. Myofascial pain syndrome - ICD9: 729.1, ICD10: M79.18 (primary diagnosis) 2. Neck pain - ICD9: 723.1, ICD10: M54.2 3. Sacroiliitis (HCC) - ICD9: 720.2, ICD10: M46.1 4. Other migraine without status migrainosus, not intractable - ICD9: 346.80, ICD10: G43.809 PLAN: The OARRS report has been reviewed and is consistent with the patients medical history and medication intake. Continue with the tizanidine and compounding cream. Continue using TENS unit. The patient was previously given a brochure regarding the [facility]. Continue with core strengthening and range of motion exercises Continue with the topamax and eletriptan for the migraines. She will be released from our office and will follow up with her PCP for her medications. Madison Denny PA-C documented in this encounter [facility] 10-29-2024 Telephone encount er Note Lvm and sent to new PCP [facility] 10-29-2024 Miscellaneous Notes Formattin g of this note might be different from the original. Lvm and sent to new PCP please let patient know she has low TSH. I see patient is now following with Dr. Ramos and labs have been obtained by them if patient is now with a different PCP please have labs sent over to new PCP. Thank you documented in this encounter [facility] 10-29-2024 Telephone encount er Note please let patient know she has low TSH. I see patient is now following with Dr. Ramos and labs have been obtained by them if patient is now with a different PCP please have labs sent over to new PCP. Thank you [facility] 10-07-2024 Evaluation note Diagnosis Onset Date Resolution Anxiety acute October 07, 2024 7:52am GERD (gastroesophageal reflux disease) acute October 07, 2024 7:52am Hypothyroidism acute September 222023 7:52am Chronic back pain chronic Decembe r 2023 7:52am History of DVT (deep vein thrombosis) chronic October 07, 2024 7:52am Establishing care with new doctor, encounter for noneactive September 222023 7:52am Sinus pain noneactive October 07, 2024 7:52am Chronic daily headache noneactive De cember 2023 7:52am History of melanoma noneactive Decem haseeb 2023 7:52am Hypogammaglobulinemia chronic Oct uary 2024 12:44pm Thrombophilia chronic October 12:44pm Anxiety acute November 26, 2024 7:56am GERD (gastroesophageal reflux disease) acute November 26, 2024 7:56am Hypothyroidism acute November 262024 7:56am Chronic back pain chronic ua2024 7:56am History of DVT (deep vein thrombosis) chronic November 26, 2024 7:56am Change in bowel habits noneactive Fe bruary 2024 7:56am Sinus pain noneactive November 26, 2024 7:56am Chronic daily headache noneactive Fe bruary 2024 7:56am History of melanoma noneactive Febr maria esther2024 7:56am Screening for breast cancer noneacti ve November 26, 2024 7:56am Hypogammaglobulinemia chronic Dec 1:10pm Thrombophilia chronic December 23, 2024 1:10pm [facility] Work Phone: 1(819) 873-119912-02-2024 History of Present illness Narrative* Yuko Jasso, RT(R) - 09/23/2024 11:00 AM EST Radiology Service Progress Note PATIENT NAME: Suha Calix DATE OF SERVICE: September 23, 2024 TIME: 11:15 AM PATIENT IDENTITY VERIFICATION COMPLETED USING TWO (2) IDENTIFIERS: Name and Date of confirmedby patient verbally. FALL SCREENING: Has the patient had 2 falls in the last year or 1 fall with injury or currently using an Ambulatory Assistive Device (Walker, Cane, Wheelchair, Crutches, etc.)? No PATIENT GENDER DATA: Female. status: : No status: NO. PATIENT RELEVANT IMPLANT DATA REVIEWED: Not Applicable PATIENT PRESENTS WITH AN IMPLANTABLE OR ATTACHED CONTRACT ADMINISTRATION MANAGER: No RADIOLOGY DEPARTMENT: General X-ray: Exam(s) Completed: Chest X-Ray PERIPHERAL IV DATA: Not applicable SIGNED BY: RT Macey(Adolfo) September 23, 2024 11:15 AM [facility] NoteHNO ID: [id number] Author: YUKO JASSO RT(R) Service: ? Author Type: Technologist Type: Progress Notes Filed: 09/23/2024 11:15 Note Text: Radiology Service Progress Note PATIENT NAME: Suha Calix DATE OF SERVICE: September 23, 2024 TIME: 11:15 AM PATIENT IDENTITY VERIFICATION COMPLETED USING TWO (2) IDENTIFIERS: Name and Date of confirmed by patient verbally. FALL SCREENING: Has the patient had 2 falls in the last year or 1 fall with injury or currently using an Ambulatory Assistive Device (Walker, Cane, Wheelchair, Crutches, etc.)? No PATIENT GENDER DATA: Female. status: : No status: NO. PATIENT RELEVANT IMPLANT DATA REVIEWED: Not Applicable PATIENT PRESENTS WITH AN IMPLANTABLE OR ATTACHED CONTRACT ADMINISTRATION MANAGER: No RADIOLOGY DEPARTMENT: General X-ray: Exam(s) Completed: Chest X-Ray PERIPHERAL IV DATA: Not applicable SIGNED BY: RT Macey(Adolfo) September 23, 2024 11:15 [facility]12-02-2024 NoteHNO ID: [id number] Author: VETO LINARES DO Service: ? Author Type: Physician Type: Progress Notes Filed: 09/23/2024 11:17 Note Text: Suha Calix is a 44 year old FEMALE who presents with Cough (Cough, chest congestion, sore throat, bilateral ear pain and states yeast like rash under breasts x 1 week ) HPI PAST MEDICAL HISTORY Diagnosis Date Anxiety and depression GERD (gastroesophageal reflux disease) H/O protein C deficiency H/O protein S deficiency History of DVT (deep vein thrombosis) 10/04/2021 Hypothyroid Malignant melanoma (HCC) Migraines Other specified hypothyroidism 10/04/2021 TMJ (temporomandibular joint disorder) ACTIVE PROBLEM LIST H/O Protein C Deficiency H/O Protein S Deficiency Migraine Malignant Melanoma (Hcc) History of Dvt (Deep Vein Thrombosis) Hypothyroidism Neck Pain Right Leg Pain Left Leg Pain Myofascial Pain Syndrome Uti Symptoms Abdominal Pain Chronic Pain Syndrome Sacroiliitis (Hcc) Acute Right-Sided Low Back Pain With Right-Sided Sciatica Encounter for Screening Mammogram for Breast Cancer Adjustment Disorder With Mixed Anxiety and Depressed Mood Headaches Hypothyroidism, Unspecified 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 levothyroxine (SYNTHROID) 112 mcg tablet Take 112 mcg by mouth every morning. Take On an Empty Stomach topiramate (TOPAMAX) 100 mg tablet TAKE 1 TABLET TWICE A DAY [address] (PROTONIX) 40 mg tablet TAKE 1 TABLET DAILY 90 tablet 3 amitriptyline (ELAVIL) 25 mg tablet Take 1 tablet by mouth daily at bedtime. 30 tablet 0 tiZANidine (ZANAFLEX) 4 mg tablet Take 0.5-1 tablets by mouth three times a day as needed (muscle spasms). 90 tablet 3 eletriptan (RELPAX) 40 mg tablet At migraine onset. may repeat in 2 hours if necessary 12 tablet 5 apixaban (ELIQUIS) 5 mg tab(s) Take 1 tablet by mouth two times a day. 180 tablet 1 dicyclomine (BENTYL) 20 mg tablet TAKE ONE TABLET BY MOUTH THREE TIMES A DAY NEEDED FOR ABDOMINAL PAIN 270 tablet 1 polyethylene glycol 3350 (MIRALAX, GLYCOLAX) 17 gram/dose powder Take 17 g by mouth once daily. 510 g 4 ketoconazole (NIZORAL) 2 % cream Apply 1 application to affected area daily at bedtime. 60 g 1 doxycycline hyclate (VIBRAMYCIN) 100 mg capsule Take 1 capsule (100 mg) by mouth two times a day for 10 days. 20 capsule 0 Iiqciclauqvpvrk-Esxiaygkd-QE (BROMFED DM) 2-30-10 mg/5 mL syrup Take 5 mL by mouth four times a day as needed for up to 7 days. 120 mL 0 gabapentin (NEURONTIN) 100 mg capsule Take 2 capsules by mouth daily at bedtime for 30 days. 60 capsule 0 ergocalciferol 50,000 unit capsule (VITAMIN D2, DRISDOL) Take 1 capsule by mouth one time a week. Use as directed. 12 capsule 1 No current facility-administered medications for this visit. Social History Tobacco Use Smoking status: Former Current packs/day: 0.00 Average packs/day: 1 pack/day for 22.0 years (22.0 ttl pk-yrs) Types: Cigarettes Start date: 03/23/1994 Quit date: 03/23/2016 Years since quittin.5 Passive exposure: Past Smokeless tobacco: Never Vaping Use Vaping status: Never Used Substance Use Topics Alcohol use: Not Currently Drug use: Yes Types: Marijuana Comment: Only medical marijuania Alcohol Use: Not Currently Tobacco Use: Types: Cigarettes FAMILY HISTORY Problem Relation Age of Onset Clotting Disorder Father Protein C and S deficiency No Known Problems Mother Clotting Disorder Paternal Grandfather Anesthesia Problems No Family History Review of Systems Constitutional: Positive for chills, fever and malaise/fatigue. HENT: Positive for congestion, ear pain, sinus pain and sore throat. Respiratory: Positive for cough and sputum production. Musculoskeletal: Positive for myalgias. Neurological: Positive for headaches. All other systems reviewed and are negative. BP 99/74 Pulse 77 Temp (Src) 98.3 (Temporal) Resp 18 Wt 120 lb (54.4kg) SpO2 100% LMP 03/08/2022 Physical Exam Vitals and nursing note reviewed. Constitutional: Appearance: Normal appearance. HENT: Head: Normocephalic. Right Ear: Tympanic membrane normal. Left Ear: Tympanic membrane normal. Nose: Congestion and rhinorrhea present. Mouth/Throat: Pharynx: Posterior oropharyngeal erythema present. No oropharyngeal exudate. Eyes: General: Right eye: Discharge present. Left eye: Discharge present. Cardiovascular: Rate and Rhythm: Normal rate and regular rhythm. Pulses: Normal pulses. Heart sounds: Normal heart sounds. Pulmonary: Effort: Pulmonary effort is normal. Breath sounds: Wheezing and rhonchi present. Abdominal: General: Bowel sounds are normal. Musculoskeletal: General: Normal range of motion. Lymphadenopathy: Cervical: Cervic (more content not included)...[facility]12-02-2024 History of Present illness Narrative* Veto Linares, - 09/23/2024 10:51 AM EST Suha Calix is a 44 year old FEMALE who presents with Cough (Cough, chest congestion, sore throat, bilateral ear pain and states yeast like rash under breasts x 1 week ) HPI PAST MEDICAL HISTORY Diagnosis Date Anxiety and depression GERD (gastroesophageal reflux disease) H/O protein C deficiency H/O protein S deficiency History of DVT (deep vein thrombosis) 10/04/2021 Hypothyroid Malignant melanoma (HCC) Migraines Other specified hypothyroidism 10/04/2021 TMJ (temporomandibular joint disorder) ACTIVE PROBLEM LIST H/O Protein C Deficiency H/O Protein S Deficiency Migraine Malignant Melanoma (Hcc) History of Dvt (Deep Vein Thrombosis) Hypothyroidism Neck Pain Right Leg Pain Left Leg Pain Myofascial Pain Syndrome Uti Symptoms Abdominal Pain Chronic Pain Syndrome Sacroiliitis (Hcc) Acute Right-Sided Low Back Pain With Right-Sided Sciatica Encounter for Screening Mammogram for Breast Cancer Adjustment Disorder With Mixed Anxiety and Depressed Mood Headaches Hypothyroidism, Unspecified Hair Thinning Brittle Nails 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 levothyroxine (SYNTHROID) 112 mcg tablet Take 112 mcg by mouth every morning. Take On an Empty Stomach topiramate (TOPAMAX) 100 mg tablet TAKE 1 TABLET TWICE A DAY [address] (PROTONIX) 40 mg tablet TAKE 1 TABLET DAILY 90 tablet 3 amitriptyline (ELAVIL) 25 mg tablet Take 1 tablet by mouth daily at bedtime. 30 tablet 0 tiZANidine (ZANAFLEX) 4 mg tablet Take 0.5-1 tablets by mouth three times a day as needed (muscle spasms). 90 tablet 3 eletriptan (RELPAX) 40 mg tablet At migraine onset. may repeat in 2 hours if necessary 12 tablet 5 apixaban (ELIQUIS) 5 mg tab(s) Take 1 tablet by mouth two times a day. 180 tablet 1 dicyclomine (BENTYL) 20 mg tablet TAKE ONE TABLET BY MOUTH THREE TIMES A DAY NEEDED FOR ABDOMINAL PAIN 270 tablet 1 polyethylene glycol 3350 (MIRALAX, GLYCOLAX) 17 gram/dose powder Take 17 g by mouth once daily. 510g 4 ketoconazole (NIZORAL) 2 % cream Apply 1 application to affected area daily at bedtime. 60 g 1 doxycycline hyclate (VIBRAMYCIN) 100 mg capsule Take 1 capsule (100 mg) by mouth two times a day for 10 days. 20 capsule 0 Tzvthyryixgqyxp-Dwzragogf-BD (BROMFED DM) 2-30-10 mg/5 mL syrup Take 5 mL by mouth four times a dayas needed for up to 7 days. 120 mL 0 gabapentin (NEURONTIN) 100 mg capsule Take 2 capsules by mouth daily at bedtime for 30 days. 60 capsule 0 ergocalciferol 50,000 unit capsule (VITAMIN D2, DRISDOL) Take 1 capsule by mouth one time a week. Use as directed. 12 capsule 1 No current facility-administered medications for this visit. Social History Tobacco Use Smoking status: Former Current packs/day: 0.00 Average packs/day: 1 pack/day for 22.0 years (22.0 ttl pk-yrs) Types: Cigarettes Start date: 03/23/1994 Quit date: 03/23/2016 Years since quittin.5 Passive exposure: Past Smokeless tobacco: Never Vaping Use Vaping status: Never Used Substance Use Topics Alcohol use: Not Currently Drug use: Yes Types: Marijuana Comment: Only medical marijuania Alcohol Use: Not Currently Tobacco Use: Types: Cigarettes FAMILY HISTORY Problem Relation Age of Onset Clotting Disorder Father Protein C and S deficiency No Known Problems Mother Clotting Disorder Paternal Grandfather Anesthesia Problems No Family History Review of Systems Constitutional: Positive for chills, fever and malaise/fatigue. HENT: Positive for congestion, ear pain, sinus pain and sore throat. Respiratory: Positive for cough and sputum production. Musculoskeletal: Positive for myalgias. Neurological: Positive for headaches. All other systems reviewed and are negative. BP 99/74 Pulse 77 Temp (Src) 98.3 (Temporal) Resp 18 Wt 120 lb (54.4kg) SpO2 100% LMP 03/08/2022 Physical Exam Vitals and nursing note reviewed. Constitutional: Appearance: Normal appearance. HENT: Head: Normocephalic. Right Ear: Tympanic membrane normal. Left Ear: Tympanic membrane normal. Nose: Congestion and rhinorrhea present. Mouth/Throat: Pharynx: Posterior oropharyngeal erythema present. No oropharyngeal exudate. Eyes: General: Right eye: Discharge present. Left eye: Discharge present. Cardiovascular: Rate and Rhythm: Normal rate and regular rhythm. Pulses: Normal pulses. Heart sounds: Normal heart sounds. Pulmonary: Effort: Pulmonary effort is normal. Breath sounds: Wheezing and rhonchi present. Abdominal: General: Bowel sounds are normal. Musculoskeletal: General: Normal range of motion. Lymphadenopathy: Cervical: Cervical adenopathy present. Skin: General: Skin is warm. Capillary Refill: Capillary refill takes 2 to 3 seconds. Neurological: General: No focal deficit present. Mental Status: She is alert. Psychiatric: Mood and Affect: Mood normal. ASSESSMENT/PLAN: 1. Respiratory illness with fever - ICD9: 519.9, ICD10: J98.9, R50.9 - XR CHEST 2V FRONTAL/LAT - KETOCONAZOLE 2 % TOPICAL CREAM - DOXYCYCLINE HYCLATE 100 MG CAPSULE - [id number]-[id number] 2 MG-30 MG-10 MG/5 ML ORAL SYRUP Veto Linares [facility] encounter Note * Telephone Encounter - Praveen Corona MA - 09/05/2024 7:55 AM EST Prescription Refill Information The patient has been identified by name and date of : Yes Caregiver verified no other encounters exist for this prescription request: Yes Caregiver confirmed with patient/requestor that no other refills are due, in the near future, with this provider at this time: Yes The last office visit in the department: Does the patient have a future office visit with this provider/department: No Requested Prescriptions Pending Prescriptions Disp Refills topiramate (TOPAMAX) 100 mg tablet [Pharmacy Med Name: TOPIRAMATE TABS 100MG] 180 tablet 3 Sig: TAKE 1 TABLET TWICE A DAY pantoprazole DR (PROTONIX) 40 mg tablet [Pharmacy Med Name: PANTOPRAZOLE SODIUM DR TABS 40MG] 90 tablet 3 Sig: TAKE 1 TABLET DAILY Praveen Corona MA September 05, 2024 7:55 AM [facility]11-14-2024 Miscellaneous Notes* Telephone Encounter - Praveen Corona MA - 09/05/2024 7:55 AM EST Prescription Refill Information The patient has been identified by name and date of : Yes Caregiver verified no other encounters exist for this prescription request: Yes Caregiver confirmed with patient/requestor that no other refills are due, in the near future, with this provider at this time: Yes The last office visit in the department: Does the patient have a future office visit with this provider/department: No Requested Prescriptions Pending Prescriptions Disp Refills topiramate (TOPAMAX) 100 mg tablet [Pharmacy Med Name: TOPIRAMATE TABS 100MG] 180 tablet 3 Sig: TAKE 1 TABLET TWICE A DAY pantoprazole DR (PROTONIX) 40 mg tablet [Pharmacy Med Name: PANTOPRAZOLE SODIUM DR TABS 40MG] 90 tablet 3 Sig: TAKE 1 TABLET DAILY Praveen Corona MA September 05, 2024 7:55 AM documented in [facility]24 NoteHNO ID: [id number] Author: MISAEL WALL MD Service: ? Author Type: Anesthesiologist Type: Progress Notes Filed: 08/28/2024 16:41 Note Text: PATIENT: Suha Calix : 1980 DATE OF SERVICE: 08/28/2024 REFERRING PRACTITIONER: No ref. provider found PRIMARY CARE PROVIDER: Dwayne Mcdaniel MD CHIEF COMPLAINT: Patient presents with: Neck Pain HISTORY OF PRESENT ILLNESS: Suha Calix is a 44 year old year old female who presents to the clinic today with chief complaint(s) as above. Following up for: Generalized pain worse in the neck Response to treatment recommendations: A few days of relief with trigger point injections Current primary concern/description: Continued neck, mid back and low back pain Pain Level: 8 /10 Better with: Heat, massage Worse with: Pain is constant and worse with activity of any kind Numbness/Tingling: [] Yes [x] No Bladder/bowel fxn change: [] Yes [x] No --- 14 point ROS as above; pertinent positives listed above, the rest are reviewed and confirmed to be negative. Nursing ROS Reviewed and confirmed. === HISTORY: ALLERGIES Allergen Reactions Latex Rash Penicillins Anaphylaxis Tape [Adhesive Tape* Rash Toradol [Ketorolac] Swelling Tongue swelling PAST MEDICAL HISTORY Diagnosis Date Anxiety and depression GERD (gastroesophageal reflux disease) H/O protein C deficiency H/O protein S deficiency History of DVT (deep vein thrombosis) 10/04/2021 Hypothyroid Malignant melanoma (HCC) Migraines Other specified hypothyroidism 10/04/2021 TMJ (temporomandibular joint disorder) PAST SURGICAL HISTORY Procedure Laterality Date ARTERY TO VEIN SHUNT 06/28/[address] [facility] SECTION SINGLE 1997 COLONOSCOPY SCREENING 01/16/2023 EGD W/O BRSH SPEC VARICIES INJ 01/16/2023 ESOPHAGOGASTRODUODENOSCOPY TRANSORAL DIAGNOSTIC 03/23/2013 EGD HAND SURGERY HX Left trigger finger release 3 rd finger HYSTEROSCOPY, DIAGNOSTIC (SEPARATE 10/18/2021 IR IVC FILTER PLACEMENT 2010 MALIGNANT MELANOMA - WIDE EXCISION IN ANY AREA AND MUST INCLUDE > 1CM MARGINS AND LAYERED CLOSURE TONSILLECTOMY AND ADENOIDECTOMY VAGINAL HYSTERECTOMY 03/08/2022 total FAMILY HISTORY Problem Relation Age of Onset Clotting Disorder Father Protein C and S deficiency No Known Problems Mother Clotting Disorder Paternal Grandfather Anesthesia Problems No Family History Social History Tobacco Use Smoking status: Former Current packs/day: 0.00 Average packs/day: 1 pack/day for 22.0 years (22.0 ttl pk-yrs) Types: Cigarettes Start date: 03/23/1994 Quit date: 03/23/2016 Years since quittin.4 Smokeless tobacco: Never Vaping Use Vaping status: Never Used Substance Use Topics Alcohol use: Not Currently Drug use: Yes Types: Marijuana Comment: Only medical marijuania Current Outpatient Medications Medication Sig eletriptan (RELPAX) 40 mg tablet At migraine onset. may repeat in 2 hours if necessary erenumab-aooe (AIMOVIG AUTOINJECTOR) 70 mg/mL auto-injector Inject 1 mL subcutaneously once every month. ondansetron orally disintegrating (ZOFRAN ODT) 4 mg disintegrating tablet Take 1 tablet by mouth every 8 hours as needed for nausea/vomiting. levothyroxine (SYNTHROID) 125 mcg tablet Take 1 tablet by mouth once daily. apixaban (ELIQUIS) 5 mg tab(s) Take 1 tablet by mouth two times a day. pantoprazole DR (PROTONIX) 40 mg tablet Take 1 tablet by mouth once daily. topiramate (TOPAMAX) 100 mg tablet Take 1 tablet by mouth two times a day. dicyclomine (BENTYL) 20 mg tablet TAKE ONE TABLET BY MOUTH THREE TIMES A DAY NEEDED FOR ABDOMINAL PAIN polyethylene glycol 3350 (MIRALAX, GLYCOLAX) 17 gram/dose powder Take 17 g by mouth once daily. amitriptyline (ELAVIL) 25 mg tablet Take 1 tablet by mouth daily at bedtime. tiZANidine (ZANAFLEX) 4 mg tablet Take 0.5-1 tablets by mouth three times a day as needed (muscle spasms). gabapentin (NEURONTIN) 100 mg capsule Take 2 capsules by mouth daily at bedtime for 30 days. ergocalciferol 50,000 unit capsule (VITAMIN D2, DRISDOL) Take 1 capsule by mouth one time a week. Use as directed. No current facility-administered medications for this visit. OBJECTIVE: VS: BP 123/81 (BP Site: Left Arm, BP Position: Sitting, BP Cuff Size: Regular Adult) Pulse 77 Resp 14 Ht 165.1 cm (5' 5) Wt 54.4 kg (120 lb) [facility] 03/08/2022 SpO2 100% BMI 19.97 kg/m? Body mass index is 19.97 kg/m?. PHYSICAL EXAMINATION: Gen: Well developed. No acute distress. Eyes: Conjunctivae clear. Normal upper and lower lids. CV: Non-cyanotic. No obvious jugular venous distention. Chest: Non-labored breathing, good respiratory effort. Lymph: No visible regional lymphadenopathy. No gross edema noted. Skin: Visualized portions intact and no rashes or ecchymosis noted. Psych: Alert and well-oriented. Mood/Affect: appropriate. Neuro/MSK: Tender to palpation (more content not included)...[facility]11-06-2024 History of Present illness Narrative* Misael Wall MD - 08/28/2024 3:55 PM EST PATIENT: Suha Calix : 1980 DATE OF SERVICE: 08/28/2024 REFERRING PRACTITIONER: No ref. provider found PRIMARY CARE PROVIDER: Dwayne Mcdaniel MD CHIEF COMPLAINT: Patient presents with: Neck Pain HISTORY OF PRESENT ILLNESS: Suha Calix is a 44 year old year old female who presents to the clinic today with chief complaint(s) as above. Following up for: Generalized pain worse in the neck Response to treatment recommendations: A few days of relief with trigger point injections Current primary concern/description: Continued neck, mid back and low back pain Pain Level: 8 /10 Better with: Heat, massage Worse with: Pain is constant and worse with activity of any kind Numbness/Tingling: [] Yes [x] No Bladder/bowel fxn change: [] Yes [x] No --- 14 point ROS as above; pertinent positives listed above, the rest are reviewed and confirmed to be negative. Nursing ROS Reviewed and confirmed. === HISTORY: ALLERGIES Allergen Reactions Latex Rash Penicillins Anaphylaxis Tape [Adhesive Tape* Rash Toradol [Ketorolac] Swelling Tongue swelling PAST MEDICAL HISTORY Diagnosis Date Anxiety and depression GERD (gastroesophageal reflux disease) H/O protein C deficiency H/O protein S deficiency History of DVT (deep vein thrombosis) 10/04/2021 Hypothyroid Malignant melanoma (HCC) Migraines Other specified hypothyroidism 10/04/2021 TMJ (temporomandibular joint disorder) PAST SURGICAL HISTORY Procedure Laterality Date ARTERY TO VEIN SHUNT 06/28/[address] [facility] SECTION SINGLE 1997 COLONOSCOPY SCREENING 01/16/2023 EGD W/O BRSH SPEC VARICIES INJ 01/16/2023 ESOPHAGOGASTRODUODENOSCOPY TRANSORAL DIAGNOSTIC 03/23/2013 EGD HAND SURGERY HX Left trigger finger release 3 rd finger HYSTEROSCOPY, DIAGNOSTIC (SEPARATE 10/18/2021 IR IVC FILTER PLACEMENT 2010 MALIGNANT MELANOMA - WIDE EXCISION IN ANY AREA AND MUST INCLUDE > 1CM MARGINS & LAYERED CLOSURE TONSILLECTOMY & ADENOIDECTOMY <AGE 12 VAGINAL HYSTERECTOMY 03/08/2022 total FAMILY HISTORY Problem Relation Age of Onset Clotting Disorder Father Protein C and S deficiency No Known Problems Mother Clotting Disorder Paternal Grandfather Anesthesia Problems No Family History Social History Tobacco Use Smoking status: Former Current packs/day: 0.00 Average packs/day: 1 pack/day for 22.0 years (22.0 ttl pk-yrs) Types: Cigarettes Start date: 03/23/1994 Quit date: 03/23/2016 Years since quittin.4 Smokeless tobacco: Never Vaping Use Vaping status: Never Used Substance Use Topics Alcohol use: Not Currently Drug use: Yes Types: M[facility]: [facility] Current Outpatient Medications Medication Sig eletriptan (RELPAX) 40 mg tablet At migraine onset. may repeat in 2 hours if necessary erenumab-aooe (AIMOVIG AUTOINJECTOR) 70 mg/mL auto-injector Inject 1 mL subcutaneously once every month. ondansetron orally disintegrating (ZOFRAN ODT) 4 mg disintegrating tablet Take 1 tablet by mouth every 8 hours as needed for nausea/vomiting. levothyroxine (SYNTHROID) 125 mcg tablet Take 1 tablet by mouth once daily. apixaban (ELIQUIS) 5 mg tab(s) Take 1 tablet by mouth two times a day. pantoprazole DR (PROTONIX) 40 mg tablet Take 1 tablet by mouth once daily. topiramate (TOPAMAX) 100 mg tablet Take 1 tablet by mouth two times a day. dicyclomine (BENTYL) 20 mg tablet TAKE ONE TABLET BY MOUTH THREE TIMES A DAY NEEDED FOR ABDOMINAL PAIN polyethylene glycol 3350 (MIRALAX, GLYCOLAX) 17 gram/dose powder Take 17 g by mouth once daily. amitriptyline (ELAVIL) 25 mg tablet Take 1 tablet by mouth daily at bedtime. tiZANidine (ZANAFLEX) 4 mg tablet Take 0.5-1 tablets by mouth three times a day as needed (muscle spasms). gabapentin (NEURONTIN) 100 mg capsule Take 2 capsules by mouth daily at bedtime for 30 days. ergocalciferol 50,000 unit capsule (VITAMIN D2, DRISDOL) Take 1 capsule by mouth one time a week. Use as directed. No current facility-administered medications for this visit. OBJECTIVE: VS: BP 123/81 (BP Site: Left Arm, BP Position: Sitting, BP Cuff Size: Regular Adult) Pulse 77 Resp 14 Ht 165.1 cm (5' 5) Wt 54.4 kg (120 lb) LMP 03/08/2022 SpO2 100% BMI 19.97 kg/m Body mass index is 19.97 kg/m . PHYSICAL EXAMINATION: Gen: Well developed. No acute distress. Eyes: Conjunctivae clear. Normal upper and lower lids. CV: Non-cyanotic. No obvious jugular venous distention. Chest: Non-labored breathing, good respiratory effort. Lymph: No visible regional lymphadenopathy. No gross edema noted. Skin: Visualized portions intact and no rashes or ecchymosis noted. Psych: Alert and well-oriented. Mood/Affect: appropriate. Neuro/MSK: Tender to palpation throughout the musculature of the neck mid back and low back. No trigger points. Facet loading is negative in the neck bilateral. Diagnostic Imaging: Last CT Cervical Spine - Impression Only CT CERVICAL SPINE WO IVCON Exam End: 08/25/2024 11:00 AM (Final result) Impression: IMPRESSION: No acute fracture or traumatic malalignment. Anatomic Variant: None. Assume 7 cervical vertebrae with counting from the craniocervical junction. Dictated by Appointment Setter: Konrad Denny MD ... Last XR Cervical Spine - Impression Only XR CERV OTHER 4V AP/LAT/OBL Exam End: 06/05/2024 9:36 AM (Final result) Impression: IMPRESSION: Cervical spine plain radiographs show mild degenerative spine changes as above. Other details above. Anatomic variant (Cervical): None. Assume 7 cervical vertebrae with ... PDMP report reviewed and consistent Other Diagnostic Studies: IMPRESSION: (M79.18) Myofascial pain syndrome (primary encounter diagnosis) (G89.4) Chronic pain syndrome (M54.2) Neck pain (G43.809) Other migraine without status migrainosus, not intractable Suhaher Garcia Calix is a 44 year old female here with the following issues: Multiple chronic pain complaints including the neck and low back. Patient also sees neurology for headaches PLAN: -Recommend: Trial lidocaine infusions for diffuse generalized pain Refill tizanidine Increase amitriptyline to 25 mg nightly Consider increasing gabapentin in the future Continue Topamax, Aimovig, triptan, care with neurology Patient is on Eliquis Continue compound cream Continue massage, heat Follow-up in 1 month The risks, benefits, alternative treatment options and prognosis were discussed and all of patient's questions/concerns were addressed. -Depending on response to recommendations, in the future may consider evaluation for: Follow-up: 1 month May certainly follow up sooner if needed. This note was produced using voice recognition software and therefore may contain typos. Please contact the author with any questions or concerns. Author: Misael Wall MD 08/28/2024 3:55 PM documented in this encounterPrem[facility] Nurse Note* Antoinette Daugherty MA - 08/28/2024 3:16 PM EST Room 3 [facility]11-06-2024 Nurse Note* Antoinette Daugherty MA - 08/28/2024 3:16 PM EST Room 3 documented in this encounterPrem[facility]11-06-2024 NoteHNO ID: [id number] Author: MICHA KLEIN RN Service: ? Author Type: Registered Nurse Type: Progress Notes Filed: 08/28/2024 14:37 Note Text: ED Follow-Up Note Provider Action / FYI: Patient reports that she is doing better. She has a follow-up with Pain Management today. Her next appt with neurology is 11/27/24. Patient is scheduled for a ER Follow-up with Dr. Mcdaniel on 09/06/24 on 10:40am. Call completed by: RN Patient seen in ED: In Network ED Contact made with Patient: Yes The patient was identified by Name and Date of . Discussed Care with: patient Patient was seen in the Emergency Department (ED) Location: [facility] Date: 08/25/24 Reason for ED Visit: Fall, Migraines ED Intervention: CT Brain, CT Cervical Spine, fluids, medications New Medications: N/A Medication Changes: N/A Does patient understand medication changes: N/A Can patient afford medication changes: N/A Patient educated on worsening symptoms and when and where to seek additional care: Yes Patient Education Provided including treatment plan and new orders. Patient provided with appropriate counseling: Yes Based on assessment expert, the following disposition is advised: No symptoms or symptoms present, not severe. Routed to: No Action Needed Patient reports that she is doing better. She has a follow-up with Pain Management today. Her next appt with neurology is 11/27/24. Patient is scheduled for a ER Follow-up with Dr. Mcdaniel on 09/06/24 on 10:40am. Micha Klein RN August 28, 2024 2:23 PMSt[facility] [id number] History of Present illness Narrative* Micha Klein RN - 08/28/2024 2:13 PM EST ED Follow-Up Note Provider Action / FYI: Patient reports that she is doing better. She has a follow-up with Pain Management today. Her next appt with neurology is 11/27/24. Patient is scheduled for a ER Follow-up with Dr. Mcdaniel on 09/06/24 on 10:40am. Call completed by: RN Patient seen in ED: In Network ED Contact made with Patient: Yes The patient was identified by Name and Date of . Discussed Care with: patient Patient was seen in the Emergency Department (ED) Location: [facility] Date: 08/25/24 Reason for ED Visit: Fall, Migraines ED Intervention: CT Brain, CT Cervical Spine, fluids, medications New Medications: N/A Medication Changes: N/A Does patient understand medication changes: N/A Can patient afford medication changes: N/A Patient educated on worsening symptoms and when and where to seek additional care: Yes Patient Education Provided including treatment plan and new orders. Patient provided with appropriate counseling: Yes Based on assessment expert, the following disposition is advised: No symptoms or symptoms present, not severe. Routed to: No Action Needed Patient reports that she is doing better. She has a follow-up with Pain Management today. Her next appt with neurology is 11/27/24. Patient is scheduled for a ER Follow-up with Dr. Mcdaniel on 09/06/24 on 10:40am. Micha Klein RN August 28, 2024 2:23 PM documented in this encounterPremier [facility]11-06-2024 NotePatient Outreach ([facility] SUHA CALIX ([id number]) 1980 F T Date Time Provider Department 08/28/24 MICHA KLEIN [facility] During your visit today, we recorded the following information about you: Micha Klein RN 08/28/2024 2:37 PM Signed ED Follow-Up Note Provider Action / FYI: Patient reports that she is doing better. She has a follow-up with Pain Management today. Her next appt with neurology is 11/27/24. Patient is scheduled for a ER Follow-up with Dr. Mcdaniel on 09/06/24 on 10:40am. Call completed by: RN Patient seen in ED: In Network ED Contact made with Patient: Yes The patient was identified by Name and Date of . Discussed Care with: patient Patient was seen in the Emergency Department (ED) Location: [facility] Date: 08/25/24 Reason for ED Visit: Fall, Migraines ED Intervention: CT Brain, CT Cervical Spine, fluids, medications New Medications: N/A Medication Changes: N/A Does patient understand medication changes: N/A Can patient afford medication changes: N/A Patient educated on worsening symptoms and when and where to seek additional care: Yes Patient Education Provided including treatment plan and new orders. Patient provided with appropriate counseling: Yes Based on assessment expert, the following disposition is advised: No symptoms or symptoms present, not severe. Routed to: No Action Needed Patient reports that she is doing better. She has a follow-up with Pain Management today. Her next appt with neurology is 11/27/24. Patient is scheduled for a ER Follow-up with Dr. Mcdaniel on 09/06/24 on 10:40am. Micha Klein RN August 28, 2024 2:23 PM Allergies As of Date: 08/28/2024 Noted Allergy Reaction LATEX 03/16/2021 2 - Rash PENICILLINS 03/16/2021 10 - Anaphylaxis TAPE (ADHESIVE TAPE-SILICONES) 06/15/2022 2 - Rash TORADOL (KETOROLAC) 03/16/2021 7 - Swelling Comments: Tongue swelling Date Reviewed: 08/25/2024 Reviewed by: Aylin Jeffery RN - Fully Assessed Reason for Visit: ED Follow Up [973] Cmt: [facility] 08/25/24 Fall, migraine Prescriptions as of 08/28/2024 - eletriptan (RELPAX) 40 mg tablet At migraine onset. may repeat in 2 hours if necessary - erenumab-aooe (AIMOVIG AUTOINJECTOR) 70 mg/mL auto-injector Inject 1 mL subcutaneously once every month. - ondansetron orally disintegrating (ZOFRAN ODT) 4 mg disintegrating tablet Take 1 tablet by mouth every 8 hours as needed for nausea/vomiting. - gabapentin (NEURONTIN) 100 mg capsule Take 2 capsules by mouth daily at bedtime for 30 days. - levothyroxine (SYNTHROID) 125 mcg tablet Take 1 tablet by mouth once daily. - amitriptyline (ELAVIL) 10 mg tablet Take 20 mg by mouth daily at bedtime. - apixaban (ELIQUIS) 5 mg tab(s) Take 1 tablet by mouth two times a day. - tiZANidine (ZANAFLEX) 4 mg tablet Take 0.5-1 tablets by mouth three times a day as needed (muscle spasms). - pantoprazole DR (PROTONIX) 40 mg tablet Take 1 tablet by mouth once daily. - topiramate (TOPAMAX) 100 mg tablet Take 1 tablet by mouth two times a day. - ergocalciferol 50,000 unit capsule (VITAMIN D2, DRISDOL) Take 1 capsule by mouth one time a week. Use as directed. - dicyclomine (BENTYL) 20 mg tablet TAKE ONE TABLET BY MOUTH THREE TIMES A DAY NEEDED FOR ABDOMINAL PAIN - polyethylene glycol 3350 (MIRALAX, GLYCOLAX) 17 gram/dose powder Take 17 g by mouth once daily. Problem List As Of Date 08/28/2024 Noted Resolved H/O protein C deficiency [Z86.2] H/O protein S deficiency [Z86.2] Migraine [G43.909] Malignant melanoma (HCC) [C43.9] History of DVT (deep vein thrombosis) [Z86.718] 10/04/2021 Hypothyroidism [E03.9] 04/26/2021 Neck pain [M54.2] 06/14/2022 Right leg pain [M79.604] 06/14/2022 Left leg pain [M79.605] 06/14/2022 Myofascial pain syndrome [M79.18] 06/14/2022 UTI symptoms [R39.9] 08/02/2022 Abdominal pain [R10.9] 10/20/2022 Chronic pain syndrome [G89.4] 12/04/2023 Sacroiliitis (HCC) [M46.1] 12/04/2023 Acute right-sided low back pain with right-side*06/14/2024 Encounter for screening mammogram for breast ca*06/14/2024 Adjustment disorder with mixed anxiety and depr*06/14/2024 Headaches [R51.9] 06/14/2024 Hypothyroidism, unspecified [E03.9] 11/03/2021 Hair thinning [L65.9] 07/16/2024 Brittle nails [L60.3] 07/16/2024 intermediate systemic steroid user [Z79.52] 07/16/2024 Encounter Status:Closed by MICHA KLEIN on 08/28/24[facility] [id number] History of Present illness Narrative* Chinmay Graff, RT(R) - 08/22/2024 1:00 PM EDT Radiology Service Progress Note PATIENT NAME: Suha Calix DATE OF SERVICE: August 22, 2024 TIME: 1:22 PM PATIENT IDENTITY VERIFICATION COMPLETED USING TWO (2) IDENTIFIERS: Name and Date of confirmedby patient verbally. FALL SCREENING: Has the patient had 2 falls in the last year or 1 fall with injury or currently using an Ambulatory Assistive Device (Walker, Cane, Wheelchair, Crutches, etc.)? No PATIENT GENDER DATA: Female. status: : No status: NO. PATIENT RELEVANT IMPLANT DATA REVIEWED: Not Applicable PATIENT PRESENTS WITH AN IMPLANTABLE OR ATTACHED CONTRACT ADMINISTRATION MANAGER: No RADIOLOGY DEPARTMENT: CT; Exam(s) Completed: Sinus PERIPHERAL IV DATA: Not applicable SIGNED BY: RT Brittney(R) August 22, 2024 1:22 PM documented in this encounterPrem[facility]10-31-2024 NoteHNO ID: [id number] Author: CHINMAY GRAFF RT(R) Service: Radiology Author Type: Technologist Type: Progress Notes Filed: 08/22/2024 13:22 Note Text: Radiology Service Progress Note PATIENT NAME: Suha Calix DATE OF SERVICE: August 22, 2024 TIME: 1:22 PM PATIENT IDENTITY VERIFICATION COMPLETED USING TWO (2) IDENTIFIERS: Name and Date of confirmed by patient verbally. FALL SCREENING: Has the patient had 2 falls in the last year or 1 fall with injury or currently using an Ambulatory Assistive Device (Walker, Cane, Wheelchair, Crutches, etc.)? No PATIENT GENDER DATA: Female. status: : No status: NO. PATIENT RELEVANT IMPLANT DATA REVIEWED: Not Applicable PATIENT PRESENTS WITH AN IMPLANTABLE OR ATTACHED CONTRACT ADMINISTRATION MANAGER: No RADIOLOGY DEPARTMENT: CT; Exam(s) Completed: Sinus PERIPHERAL IV DATA: Not applicable SIGNED BY: RT Brittney(R) August 22, 2024 1:22 [facility] Instructions* Patient Instructions* Makenna Gongora MD - 08/20/2024 2:12 PM EDT Aim?vig What is this drug used for? It is used to prevent migraine headaches. What do I need to tell my doctor BEFORE I take this drug? If you are allergic to this drug; any part of this drug; or any other drugs, foods, or substances. Tell your doctor about the allergy and what signs you had. This drug may interact with other drugs or health problems. Tell your doctor and pharmacist about all of your drugs (prescription or OTC, natural products, vitamins) and health problems. You must check to make sure that it is safe for you to take this drug with all of your drugs and health problems. Do not start, stop, or change the dose of any drug withoutchecking with your doctor. What are some things I need to know or do while I take this drug? Tell all of your health care providers that you take this drug. This includes your doctors, nurses,pharmacists, and dentists. Allergic reactions can happen with this drug. Most allergic reactions have happened within minutes or hours after taking this drug, but some have happened days later. Call the doctor right away if you have any signs that are not normal after getting this drug. If you have a latex allergy, talk with your doctor. Some products have latex. High blood pressure has happened with this drug. Have your blood pressure checked as you have been told by your doctor. Tell your doctor if you are , plan on getting , or are breast- feeding. You will need to talk about the benefits and risks to you and the baby. What are some side effects that I need to call my doctor about right away? WARNING/CAUTION: Even though it may be rare, some people may have very bad and sometimes deadly side effects when taking a drug. Tell your doctor or get medical help right away if you have any of thefollowing signs or symptoms that may be related to a very bad side effect: Signs of an allergic reaction, like rash; hives; itching; red, swollen, blistered, or peeling skin with or without fever; wheezing; tightness in the chest or throat; trouble breathing, swallowing, ortalking; unusual hoarseness; or swelling of the mouth, face, lips, tongue, or throat. Signs of high blood pressure like very bad headache or dizziness, passing out, or change in eyesight. What are some other side effects of this drug? All drugs may cause side effects. However, many people have no side effects or only have minor sideeffects. Call your doctor or get medical help if any of these side effects or any other side effects bother you or do not go away: Pain, redness, swelling, or other reaction where the injection was given. Constipation is common with this drug. In some people, severe constipation led to treatment in a hospital or surgery. Call your doctor right away if you have constipation that is severe or does not go away. These are not all of the side effects that may occur. If you have questions about side effects, call your doctor. Call your doctor for medical advice about side effects. You may report side effects to your national health agency. How is this drug best taken? Use this drug as ordered by your doctor. Read all information given to you. Follow all instructionsclosely. It is given as a shot into the fatty part of the skin on the top of the thigh or the belly area. This drug may be given into the outer area of the upper arm if given by someone else. If you will be giving yourself the shot, your doctor or nurse will teach you how to give the shot. If stored in a refrigerator, let this drug come to room temperature before using it. Leave it at room temperature for at least 30 minutes. Do not heat this drug. Protect from heat and sunlight. Do not shake. Move the site where you give the shot with each shot. Do not give into skin within 2 inches (5 cm) of the belly button. Do not give into skin that is irritated, tender, bruised, red, scaly, hard, scarred, or has stretchmarks. Do not use if the solution is cloudy, leaking, or has particles. This drug is colorless to a faint yellow. Do not use if the solution changes color. Throw away after using. Do not use the device more than 1 time. Throw away needles in a needle/sharp disposal box. Do not reuse needles or other items. When the box is full, follow all local rules for getting rid of it. Talk with a doctor or pharmacist if you have any questions. If you drop this drug on a hard surface, do not use it. What do I do if I miss a dose? Take a missed dose as soon as you think about it. After taking a missed dose, start a new schedule based on when the dose is taken. Talk with your doctor if you have questions about how to start a new schedule. How do I store and/or throw out this drug? Store in a refrigerator. Do not freeze. Store in the original container to protect from light. Do not use if it has been frozen. If needed, you may store at room temperature for up to 7 days. Write down the date you take this drug out of the refrigerator. If stored at room temperature and not used within 7 days, throw this drug away. Do not put this drug back in the refrigerator after it has been stored at room temperature. Keep all drugs in a safe place. Keep all drugs out of the reach of children and pets. Throw away unused or drugs. Do not flush down a toilet or pour down a drain unless you are told to do so. Check with your pharmacist if you have questions about the best way to throw out drugs. There may be drug take-back programs in your area. documented in this encounterPremier Health [facility]10-29-2024 NoteHNO ID: [id number] Author: MAKENNA GONGORA MD Service: ? Author Type: Physician Type: Progress Notes Filed: 08/20/2024 14:15 Note Text: INITIAL CONSULT - HEADACHE MEDICINE SERVICE DATE: 08/20/2024 Location: [facility] Participants: Patient and Provider Requesting Provider: Member Name Role and Specialty Contact Info Address Comments Rosalina Hilton APRN.PREPARED FOODS SERVICE TEAM MEMBER Referring [address] [place] [address] [facility] [id number] - Recommendations of care will be communicated by shared medical record. Subjective HPI: Suha Calix is a 44 year old year old female with a chief complaint of headache. Daily headaches for the last 15 years. Headache Description: Severity: 20 days a month are severe, rest are mild to moderate Duration of attacks: almost constant Frequency: daily for the last 15 years Aura: no Location: bilateral. Occipital and sometimes maxillary Quality: pressure and throbbing Triggers: heat, certain neck positional Date of onset: teenager Most common time of the day: anytime Associated symptoms: Nausea: yes Vomiting: yes Photophobia: yes Phonophobia: yes Vision Changes: no Vertigo: off balance sometimes Neck pain: yes Tinnitus: no Sinus Symptoms: no Autonomic Symptoms: no Worsens with simple activity: yes Avoidance of activity: yes Head pain change/trigger by valsalva maneuvers: no Positional headache: no Family hx of headaches: no Prior Treatments: Fioricet Outpatient Medications as of 08/20/2024 Medication Sig azithromycin (ZITHROMAX) 250 mg tablet Take 2 tablets by mouth once daily for 1 day, THEN 1 tablet once daily for 4 days. ondansetron orally disintegrating (ZOFRAN ODT) 4 mg disintegrating tablet Take 1 tablet by mouth every 8 hours as needed for nausea/vomiting. levothyroxine (SYNTHROID) 125 mcg tablet Take 1 tablet by mouth once daily. amitriptyline (ELAVIL) 10 mg tablet Take 20 mg by mouth daily at bedtime. eletriptan (RELPAX) 20 mg tablet Take 1 tablet (20 mg) by mouth as needed for migraine headache (see administration instructions). may repeat in 2 hours if necessary apixaban (ELIQUIS) 5 mg tab(s) Take 1 tablet by mouth two times a day. tiZANidine (ZANAFLEX) 4 mg tablet Take 0.5-1 tablets by mouth three times a day as needed (muscle spasms). pantoprazole DR (PROTONIX) 40 mg tablet Take 1 tablet by mouth once daily. topiramate (TOPAMAX) 100 mg tablet Take 1 tablet by mouth two times a day. dicyclomine (BENTYL) 20 mg tablet TAKE ONE TABLET BY MOUTH THREE TIMES A DAY NEEDED FOR ABDOMINAL PAIN polyethylene glycol 3350 (MIRALAX, GLYCOLAX) 17 gram/dose powder Take 17 g by mouth once daily. gabapentin (NEURONTIN) 100 mg capsule Take 2 capsules by mouth daily at bedtime for 30 days. ergocalciferol 50,000 unit capsule (VITAMIN D2, DRISDOL) Take 1 capsule by mouth one time a week. Use as directed. fluticasone (FLONASE) 50 mcg/actuation nasal spray USE 1 SPRAY IN EACH NOSTRIL ONCE DAILY No current facility-administered medications on file as of 08/20/2024. Current medications review: 1.Eletriptan 20 mg helps. 2.Gabapentin 200 mg HS- helps the neck pain, given by pain clinic 3.Amitriptyline 10 mg-for 2 month, no benefit 4.Topiramate 100 mg BID for 20 years. 5.OTC analgesics unsure of amount PAST MEDICAL HISTORY Diagnosis Date Anxiety and depression GERD (gastroesophageal reflux disease) H/O protein C deficiency H/O protein S deficiency History of DVT (deep vein thrombosis) 10/04/2021 Hypothyroid Malignant melanoma (HCC) Migraines Other specified hypothyroidism 10/04/2021 ALLERGIES Allergen Reactions Latex Rash Penicillins Anaphylaxis Tape [Adhesive Tape* Rash Toradol [Ketorolac] Swelling Tongue swelling Chart/data review: 1.Images and report of MRI C spine : no significant canal stenosis or disc bulging. 2.Images CT brain 04/2024, no report, images look grossly intact. Social History Tobacco Use Smoking status: Former Current packs/day: 0.00 Average packs/day: 1 pack/day for 22.0 years (22.0 ttl pk-yrs) Types: Cigarettes Start date: 03/23/1994 Quit date: 03/23/2016 Years since quittin.4 Smokeless tobacco: Never Vaping Use Vaping status: Never Used Substance Use Topics Alcohol use: Not Currently Drug use: Yes Types: Marijuana Comment: Only medical marijuania FAMILY HISTORY Problem Relation Age of Onset Clotting Disorder Father Protein C and S deficiency No Known Problems Mother Clotting Disorder Paternal Grandfather Anesthesia Problems No Family History Review of systems: GENERAL: no fevers or irritability. HEENT:no nose bleeds or other nasal problems. NECK: Negative for stiffness, lumps or significant neck swelling RESPIRATORY: Negative for cough, wheezing or respiratory distress. CARDIOVASCULAR: Negative for chest pain, syncope, lightheadness or heart racing. GI: Negative (more content not included)...[id number] History of Present illness Narrative* Makenna Gongora MD - 08/20/2024 1:02 PM EDT INITIAL CONSULT - HEADACHE MEDICINE SERVICE DATE: 08/20/2024 Location: [facility] [place] Participants: Patient and Provider Requesting Provider: Member Name Role and Specialty Contact Info Address Comments Rosalina Hilton APRN.CNP Referring [facility] [id number] - Recommendations of care will be communicated by shared medical record. Subjective HPI: Suha Calix is a 44 year old year old female with a chief complaint of headache. Daily headaches for the last 15 years. Headache Description: Severity: 20 days a month are severe, rest are mild to moderate Duration of attacks: almost constant Frequency: daily for the last 15 years Aura: no Location: bilateral. Occipital and sometimes maxillary Quality: pressure and throbbing Triggers: heat, certain neck positional Date of onset: teenager Most common time of the day: anytime Associated symptoms: Nausea: yes Vomiting: yes Photophobia: yes Phonophobia: yes Vision Changes: no Vertigo: off balance sometimes Neck pain: yes Tinnitus: no Sinus Symptoms: no Autonomic Symptoms: no Worsens with simple activity: yes Avoidance of activity: yes Head pain change/trigger by valsalva maneuvers: no Positional headache: no Family hx of headaches: no Prior Treatments: [facility] Outpatient Medications as of 08/20/2024 Medication Sig azithromycin (ZITHROMAX) 250 mg tablet Take 2 tablets by mouth once daily for 1 day, THEN 1 tablet once daily for 4 days. ondansetron orally disintegrating (ZOFRAN ODT) 4 mg disintegrating tablet Take 1 tablet by mouth every 8 hours as needed for nausea/vomiting. levothyroxine (SYNTHROID) 125 mcg tablet Take 1 tablet by mouth once daily. amitriptyline (ELAVIL) 10 mg tablet Take 20 mg by mouth daily at bedtime. eletriptan (RELPAX) 20 mg tablet Take 1 tablet (20 mg) by mouth as needed for migraine headache (see administration instructions). may repeat in 2 hours if necessary apixaban (ELIQUIS) 5 mg tab(s) Take 1 tablet by mouth two times a day. tiZANidine (ZANAFLEX) 4 mg tablet Take 0.5-1 tablets by mouth three times a day as needed (muscle spasms). pantoprazole DR (PROTONIX) 40 mg tablet Take 1 tablet by mouth once daily. topiramate (TOPAMAX) 100 mg tablet Take 1 tablet by mouth two times a day. dicyclomine (BENTYL) 20 mg tablet TAKE ONE TABLET BY MOUTH THREE TIMES A DAY NEEDED FOR ABDOMINAL PAIN polyethylene glycol 3350 (MIRALAX, GLYCOLAX) 17 gram/dose powder Take 17 g by mouth once daily. gabapentin (NEURONTIN) 100 mg capsule Take 2 capsules by mouth daily at bedtime for 30 days. ergocalciferol 50,000 unit capsule (VITAMIN D2, DRISDOL) Take 1 capsule by mouth one time a week. Use as directed. fluticasone (FLONASE) 50 mcg/actuation nasal spray USE 1 SPRAY IN EACH NOSTRIL ONCE DAILY No current facility-administered medications on file as of 08/20/2024. Current medications review: 1.Eletriptan 20 mg helps. 2.Gabapentin 200 mg HS- helps the neck pain, given by pain clinic 3.Amitriptyline 10 mg-for 2 month, no benefit 4.Topiramate 100 mg BID for 20 years. 5.OTC analgesics unsure of amount PAST MEDICAL HISTORY Diagnosis Date Anxiety and depression GERD (gastroesophageal reflux disease) H/O protein C deficiency H/O protein S deficiency History of DVT (deep vein thrombosis) 10/04/2021 Hypothyroid Malignant melanoma (HCC) Migraines Other specified hypothyroidism 10/04/2021 ALLERGIES Allergen Reactions Latex Rash Penicillins Anaphylaxis Tape [Adhesive Tape* Rash Toradol [Ketorolac] Swelling Tongue swelling Chart/data review: 1.Images and report of MRI C spine : no significant canal stenosis or disc bulging. 2.Images CT brain 04/2024, no report, images look grossly intact. Social History Tobacco Use Smoking status: Former Current packs/day: 0.00 Average packs/day: 1 pack/day for 22.0 years (22.0 ttl pk-yrs) Types: Cigarettes Start date: 03/23/1994 Quit date: 03/23/2016 Years since quittin.4 Smokeless tobacco: Never Vaping Use Vaping status: Never Used Substance Use Topics Alcohol use: Not Currently Drug use: Yes Types: Marijuana Comment: Only medical [facility] FAMILY HISTORY Problem Relation Age of Onset Clotting Disorder Father Protein C and S deficiency No Known Problems Mother Clotting Disorder Paternal Grandfather Anesthesia Problems No Family History Review of systems: GENERAL: no fevers or irritability. HEENT:no nose bleeds or other nasal problems. NECK: Negative for stiffness, lumps or significant neck swelling RESPIRATORY: Negative for cough, wheezing or respiratory distress. CARDIOVASCULAR: Negative for chest pain, syncope, lightheadness or heart racing. GI: Negative for abdominal discomfort, blood in stools or black stools or change in bowel habits : No history of dysuria, frequency or incontinence MUSCULOSKELETAL: Negative for joint pain or swelling, back pain or muscle pain. SKIN: Negative for lesions, rash, and itching. NEURO: See HPI PHYSICAL EXAM: Vitals: BP 110/77 Pulse 86 Ht 165.1 cm (5' 5) Wt 55.2 kg (121 lb 11.1 oz) LMP 03/08/2022 BMI 20.25 kg/m Mental Status: alert, oriented to person, place and time and follows commands. Funduscopic exam: no papilledema, flat disc Cranial Nerves: CNII: visual powell full to confrontation CNIII, IV, : Pupils equal, round and reactive to light, full extraocular movements without nystagmus CN V: Facial sensation intact bilaterally to fine touch CN VII: Facial muscles symmetric and strong CN VIII: Hears finger rub well bilaterally CN IX: Gag Reflex Intact CN X: Palate elevates symmetrically CN XI: Full strength shoulder shrug bilaterally CN XII: Tongue protrusion full and midline Motor Exam: Tone is normal throughout, normal bulk, no muscle atrophy. 5/5 strength throughout, no drift in upper and lower extremities. Reflexes: symmetric bilaterally Sensation: Intact to light touch in upper and lower extremities. Coordination: finger-to- nose intact bilaterally. Gait: Patient's gait is normal. ASSESSMENT: -Probable medication overuse headache -Chronic daily headaches for the last 15 years. -Chronic migraine without aura -Chronic neck pain RECOMMENDATIONS: 1. Abortive therapy: -increase Eletriptan to 40 mg, will also increase amount per month from 6 to 12 -avoid OTC analgesics 2. Preventive therapy: - trial of Aimovig 70 mg. written information provided -continue Amitriptyline 10 mg for now -continue Topiramate 100 mg BID for now 3. Continue with pain clinic for neck pain 4. Indications for brain imaging discussed. 5. Follow up in 2 months Makenna Gongora MD [facility] [place] documented in this encounterPrem[facility]24 NoteHNO ID: [id number] Author: ADALBERTO BRYANT MD Service: ? Author Type: Physician Type: Progress Notes Filed: 08/16/2024 19:11 Note Text: Suha Calix is a 44 year old female who presents with Headache (Headache, sinus congestion, face,neck and jaw discomfort for 2 days - Patient concern for a sinus infection - OTC Ibuprofen, Sudafed, NyQuil, Venessa Selzer ) 44-year-old patient presented here complaining of sinus pressure and pain denies any fevers or chills no other complaint. PAST MEDICAL HISTORY Diagnosis Date Anxiety and depression DVT (deep venous thrombosis) (HCC) GERD (gastroesophageal reflux disease) H/O protein C deficiency H/O protein S deficiency History of DVT (deep vein thrombosis) 10/04/2021 Hypothyroid Malignant melanoma (HCC) Melanoma (HCC) Migraines Other specified hypothyroidism 10/04/2021 ACTIVE PROBLEM LIST H/O Protein C Deficiency H/O Protein S Deficiency Migraine Malignant Melanoma (Hcc) History of Dvt (Deep Vein Thrombosis) Hypothyroidism Neck Pain Right Leg Pain Left Leg Pain Myofascial Pain Syndrome Uti Symptoms Abdominal Pain Chronic Pain Syndrome Sacroiliitis (Hcc) Acute Right-Sided Low Back Pain With Right-Sided Sciatica Encounter for Screening Mammogram for Breast Cancer Adjustment Disorder With Mixed Anxiety and Depressed Mood Headaches Hypothyroidism, Unspecified 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 30 tablet 5 gabapentin (NEURONTIN) 100 mg capsule Take 2 capsules by mouth daily at bedtime for 30 days. 60 capsule 0 levothyroxine (SYNTHROID) 125 mcg tablet Take 1 tablet by mouth once daily. 90 tablet 0 amitriptyline (ELAVIL) 10 mg tablet Take 20 mg by mouth daily at bedtime. eletriptan (RELPAX) 20 mg tablet Take 1 tablet (20 mg) by mouth as needed for migraine headache (see administration instructions). may repeat in 2 hours if necessary 10 tablet 5 apixaban (ELIQUIS) 5 mg tab(s) Take 1 tablet by mouth two times a day. 180 tablet 1 tiZANidine (ZANAFLEX) 4 mg tablet Take 0.5-1 tablets by mouth three times a day as needed (muscle spasms). [address] (PROTONIX) 40 mg tablet Take 1 tablet by mouth once daily. 90 tablet 1 topiramate (TOPAMAX) 100 mg tablet Take 1 tablet by mouth two times a day. 180 tablet 1 ergocalciferol 50,000 unit capsule (VITAMIN D2, DRISDOL) Take 1 capsule by mouth one time a week. Use as directed. 12 capsule 1 dicyclomine (BENTYL) 20 mg tablet TAKE ONE TABLET BY MOUTH THREE TIMES A DAY NEEDED FOR ABDOMINAL PAIN 270 tablet 1 polyethylene glycol 3350 (MIRALAX, GLYCOLAX) 17 gram/dose powder Take 17 g by mouth once daily. 510 g 4 predniSONE (DELTASONE) 20 mg tablet Take 1 tablet by mouth three times a day for 3 days. 9 tablet 0 azithromycin (ZITHROMAX) 250 mg tablet Take 2 tablets by mouth once daily for 1 day, THEN 1 tablet once daily for 4 days. 6 tablet 0 fluticasone (FLONASE) 50 mcg/actuation nasal spray USE 1 SPRAY IN EACH NOSTRIL ONCE DAILY 16 mL 1 No current facility-administered medications for this visit. Social History Tobacco Use Smoking status: Former Current packs/day: 0.00 Average packs/day: 1 pack/day for 22.0 years (22.0 ttl pk-yrs) Types: Cigarettes Start date: 03/23/1994 Quit date: 03/23/2016 Years since quittin.4 Smokeless tobacco: Never Vaping Use Vaping status: Never Used Substance Use Topics Alcohol use: Not Currently Drug use: Yes Types: Marijuana Comment: Only medical marijuania Alcohol Use: Not Currently Tobacco Use: Types: Cigarettes FAMILY HISTORY Problem Relation Age of Onset Clotting Disorder Father Protein C and S deficiency No Known Problems Mother Clotting Disorder Paternal Grandfather Anesthesia Problems No Family History Review of Systems HENT: Positive for congestion. All other systems reviewed and are negative. BP 114/79 Pulse 62 Temp (Src) 99.2 (Temporal) Resp 14 Wt 122 lb (55.3kg) SpO2 100% LMP 03/08/2022 Physical Exam Vitals and nursing note reviewed. Constitutional: Appearance: Normal appearance. HENT: Head: Normocephalic and atraumatic. Ears: Comments: Pain on percussion the maxillary and frontal sinuses Nose: Rhinorrhea present. Mouth/Throat: Mouth: Mucous membranes are moist. Eyes: Extraocular Movements: Extraocular movements intact. Conjunctiva/sclera: Conjunctivae normal. Pupils: Pupils are equal, round, and reactive to light. Cardiovascular: Rate and Rhythm: Normal rate and regular rhythm. Pulses: Normal pulses. Heart sounds: Normal heart sounds. Pulmonary: Effort: Pulmonary effort is normal. Breath sounds: Normal breath sounds. Neurological: Mental Status: She is alert. Procedures ASSESSMENT/PL (more content not included)...[facility]10-25-2024 History of Present illness Narrative* Adalberto Bryant MD - 08/16/2024 7:09 PM EDT Suha Calix is a 44 year old female who presents with Headache (Headache, sinus congestion, face,neck and jaw discomfort for 2 days - Patient concern for a sinus infection - OTC Ibuprofen, Sudafed, NyQuil, Venessa Selzer ) 44-year-old patient presented here complaining of sinus pressure and pain denies any fevers or chills no other complaint. PAST MEDICAL HISTORY Diagnosis Date Anxiety and depression DVT (deep venous thrombosis) (HCC) GERD (gastroesophageal reflux disease) H/O protein C deficiency H/O protein S deficiency History of DVT (deep vein thrombosis) 10/04/2021 Hypothyroid Malignant melanoma (HCC) Melanoma (HCC) Migraines Other specified hypothyroidism 10/04/2021 ACTIVE PROBLEM LIST H/O Protein C Deficiency H/O Protein S Deficiency Migraine Malignant Melanoma (Hcc) History of Dvt (Deep Vein Thrombosis) Hypothyroidism Neck Pain Right Leg Pain Left Leg Pain Myofascial Pain Syndrome Uti Symptoms Abdominal Pain Chronic Pain Syndrome Sacroiliitis (Hcc) Acute Right-Sided Low Back Pain With Right-Sided Sciatica Encounter for Screening Mammogram for Breast Cancer Adjustment Disorder With Mixed Anxiety and Depressed Mood Headaches Hypothyroidism, Unspecified 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 30 tablet 5 gabapentin (NEURONTIN) 100 mg capsule Take 2 capsules by mouth daily at bedtime for 30 days. 60 capsule 0 levothyroxine (SYNTHROID) 125 mcg tablet Take 1 tablet by mouth once daily. 90 tablet 0 amitriptyline (ELAVIL) 10 mg tablet Take 20 mg by mouth daily at bedtime. eletriptan (RELPAX) 20 mg tablet Take 1 tablet (20 mg) by mouth as needed for migraine headache (see administration instructions). may repeat in 2 hours if necessary 10 tablet 5 apixaban (ELIQUIS) 5 mg tab(s) Take 1 tablet by mouth two times a day. 180 tablet 1 tiZANidine (ZANAFLEX) 4 mg tablet Take 0.5-1 tablets by mouth three times a day as needed (muscle spasms). [address] (PROTONIX) 40 mg tablet Take 1 tablet by mouth once daily. 90 tablet 1 topiramate (TOPAMAX) 100 mg tablet Take 1 tablet by mouth two times a day. 180 tablet 1 ergocalciferol 50,000 unit capsule (VITAMIN D2, DRISDOL) Take 1 capsule by mouth one time a week. Use as directed. 12 capsule 1 dicyclomine (BENTYL) 20 mg tablet TAKE ONE TABLET BY MOUTH THREE TIMES A DAY NEEDED FOR ABDOMINAL PAIN 270 tablet 1 polyethylene glycol 3350 (MIRALAX, GLYCOLAX) 17 gram/dose powder Take 17 g by mouth once daily. 510g 4 predniSONE (DELTASONE) 20 mg tablet Take 1 tablet by mouth three times a day for 3 days. 9 tablet 0 azithromycin (ZITHROMAX) 250 mg tablet Take 2 tablets by mouth once daily for 1 day, THEN 1 tablet once daily for 4 days. 6 tablet 0 fluticasone (FLONASE) 50 mcg/actuation nasal spray USE 1 SPRAY IN EACH NOSTRIL ONCE DAILY 16 mL 1 No current facility-administered medications for this visit. Social History Tobacco Use Smoking status: Former Current packs/day: 0.00 Average packs/day: 1 pack/day for 22.0 years (22.0 ttl pk-yrs) Types: Cigarettes Start date: 03/23/1994 Quit date: 03/23/2016 Years since quittin.4 Smokeless tobacco: Never Vaping Use Vaping status: Never Used Substance Use Topics Alcohol use: Not Currently Drug use: Yes Types: Marijuana Comment: Only medical marijuania Alcohol Use: Not Currently Tobacco Use: Types: Cigarettes FAMILY HISTORY Problem Relation Age of Onset Clotting Disorder Father Protein C and S deficiency No Known Problems Mother Clotting Disorder Paternal Grandfather Anesthesia Problems No Family History Review of Systems HENT: Positive for congestion. All other systems reviewed and are negative. BP 114/79 Pulse 62 Temp (Src) 99.2 (Temporal) Resp 14 Wt 122 lb (55.3kg) SpO2 100% LMP 03/08/2022 Physical Exam Vitals and nursing note reviewed. Constitutional: Appearance: Normal appearance. HENT: Head: Normocephalic and atraumatic. Ears: Comments: Pain on percussion the maxillary and frontal sinuses Nose: Rhinorrhea present. Mouth/Throat: Mouth: Mucous membranes are moist. Eyes: Extraocular Movements: Extraocular movements intact. Conjunctiva/sclera: Conjunctivae normal. Pupils: Pupils are equal, round, and reactive to light. Cardiovascular: Rate and Rhythm: Normal rate and regular rhythm. Pulses: Normal pulses. Heart sounds: Normal heart sounds. Pulmonary: Effort: Pulmonary effort is normal. Breath sounds: Normal breath sounds. Neurological: Mental Status: She is alert. Procedures ASSESSMENT/PLAN: 1. Acute non-recurrent maxillary sinusitis - ICD9: 461.0, ICD10: J01.00 Place patient on Z-Ritesh take prescribed, prednisone 20 mg 3 times daily for 3 days have patient follow-up as needed. Adalberto Bryant documented in this encounterPrem[facility] Telephone encounter Note * Telephone Encounter - Dwayne Mcdaniel MD - 07/24/2024 10:46 AM EDT Tried to call patient to discuss bone density scan was unable to leave voicemail as mailbox is full. Tried 2 times. Patient has Osteopenia and needs to take vitamin D (800 units daily )and calcium(1000 to 1200 mg daily) supplements . Increase weightbearing exercise for at least 30 minutes on most days of the week [facility]10-02-2024 Miscellaneous Notes* Telephone Encounter - Dwayne Mcdaniel MD - 07/24/2024 10:46 AM EDT Tried to call patient to discuss bone density scan was unable to leave voicemail as mailbox is full. Tried 2 times. Patient has Osteopenia and needs to take vitamin D (800 units daily )and calcium(1000 to 1200 mg daily) supplements . Increase weightbearing exercise for at least 30 minutes on most days of the week documented in this encounterPrem[facility]10-[facility] History of Present illness Narrative* Karen Laguna, (R) - 07/24/2024 9:00 AM EDT Radiology Service Progress Note PATIENT NAME: Suha Calix DATE OF SERVICE: July 24, 2024 TIME: 9:01 AM PATIENT IDENTITY VERIFICATION COMPLETED USING TWO (2) IDENTIFIERS: Name and Date of confirmedby patient verbally and Name and Date of confirmed by identification band. FALL SCREENING: Has the patient had 2 falls in the last year or 1 fall with injury or currently using an Ambulatory Assistive Device (Walker, Cane, Wheelchair, Crutches, etc.)? No PATIENT GENDER DATA: Female. status: : No status: NO. PATIENT RELEVANT IMPLANT DATA REVIEWED: Not Applicable PATIENT PRESENTS WITH AN IMPLANTABLE OR ATTACHED CONTRACT ADMINISTRATION MANAGER: No RADIOLOGY DEPARTMENT: Bone Density PERIPHERAL IV DATA: Not applicable SIGNED BY: GENIA Henning) July 24, 2024 9:01 AM documented in this encounterPrem[facility]10-02-2024 NoteHNO ID: [id number] Author: KAREN LAGUNA RT(R) Service: Radiology Author Type: Technologist Type: Progress Notes Filed: 07/24/2024 09:01 Note Text: Radiology Service Progress Note PATIENT NAME: Suha Calix DATE OF SERVICE: July 24, 2024 TIME: 9:01 AM PATIENT IDENTITY VERIFICATION COMPLETED USING TWO (2) IDENTIFIERS: Name and Date of confirmed by patient verbally and Name and Date of confirmed by identification band. FALL SCREENING: Has the patient had 2 falls in the last year or 1 fall with injury or currently using an Ambulatory Assistive Device (Walker, Cane, Wheelchair, Crutches, etc.)? No PATIENT GENDER DATA: Female. status: : No status: NO. PATIENT RELEVANT IMPLANT DATA REVIEWED: Not Applicable PATIENT PRESENTS WITH AN IMPLANTABLE OR ATTACHED CONTRACT ADMINISTRATION MANAGER: No RADIOLOGY DEPARTMENT: Bone Density PERIPHERAL IV DATA: Not applicable SIGNED BY: GENIA Henning) July 24, 2024 9:01 [id number] Telephone encounter Note* Telephone Encounter - Karrie Sahni - 07/17/2024 7:56 AM EDT Referral, face sheet and office notes sent to Dr. Fontenot and Calixto harrington. Patient informed their office will call to get appointment scheduled. [facility]09-25-2024 Miscellaneous Notes* Telephone Encounter - Karrie Sahni - 07/17/2024 7:56 AM EDT Referral, face sheet and office notes sent to Dr. Fontenot and Calixto harrington. Patient informed their office will call to get appointment scheduled. documented in this encounterPrem[facility]09-[facility] Telephone encounter Note * Telephone Encounter - Dwayne Mcdaniel MD - 07/16/2024 1:38 PM EDT Please let patient know her TSH level is elevated at 6.5 will increase levothyroxine to 125 mcg andwill repeat TSH levels in 8 weeks. Make sure she is taking it on an empty stomach. [facility]09-24-2024 Miscellaneous Notes* Telephone Encounter - Dwayne Mcdaniel MD - 07/16/2024 1:38 PM EDT Please let patient know her TSH level is elevated at 6.5 will increase levothyroxine to 125 mcg andwill repeat TSH levels in 8 weeks. Make sure she is taking it on an empty stomach. documented in this encounterPrem[facility]09-[facility]-20[facility] Telephone encounter Note * Telephone Encounter - Suha Gordon MA - 07/16/2024 10:45 AM EDT Patient wanted to defer the injections today [facility]09-24-2024 Miscellaneous Notes* Telephone Encounter - Suha Gordon MA - 07/16/2024 10:45 AM EDT Patient wanted to defer the injections today documented in this encounterPrem[facility]09-24-[facility] Nurse Note* Yesenia Cloud - 07/16/2024 8:58 AM EDT Venipuncture performed to left antecubital. Number of tubes collected: 1 mint. [facility]09-24-2024 Nurse Note* Yesenia Cloud - 07/16/2024 8:58 AM EDT Venipuncture performed to left antecubital. Number of tubes collected: 1 mint. documented in this encounterPrem[facility]09-24-2024 NoteHNO ID: [id number] Author: DWAYNE MCDANIEL MD Service: ? Author Type: Physician Type: Progress Notes Filed: 07/16/2024 10:44 Note Text: Suha Calix is a 44 year old female patient with past medical history of anxiety and depression, DVT history, GERD, history of protein C deficiency, history of protein S deficiency, hypothyroidism, migraines who presents for follow-up on medical conditions and she is having a few concerns today. Has been seeing orthopedic for her neck pain, she was prescribed gabapentin 100 mg twice a day for pain by [facility] orthopedics. She has an MRI coming up for her neck. She needs gabapentin refill Patient is complaining of brittle nails, hair falling and thinning. Last TSH in March was normal. She continues to take levothyroxine. She would like that checked again. Patient complains of yellow sinus drainage, sinus pressure and pain, headaches that have been occurring more than 2 weeks. Patient has a follow-up with oral surgeon on July 23 for dentures and a possible bone graft. Patient would like a DEXA scan done she is worried as she had long-term systemic steroid use. Patient also states she was diagnosed with MTHFR by a doctor in [place]. She would like a referral to hematology oncology used to see them in [place]. Discussed with patient that I need records. Screenings: -She has not done her mammogram, we will reschedule appointment -Colonoscopy completed on January 16, 2023, she will follow-up in 5 years -She had a complete hysterectomy 2 years ago Vaccines: -She will receive the flu and tetanus shot today -She will obtain COVID vaccine from pharmacy PAST MEDICAL HISTORY Diagnosis Date Anxiety and depression DVT (deep venous thrombosis) (HCC) GERD (gastroesophageal reflux disease) H/O protein C deficiency H/O protein S deficiency History of DVT (deep vein thrombosis) 10/04/2021 Hypothyroid Malignant melanoma (HCC) Melanoma (HCC) Migraines Other specified hypothyroidism 10/04/2021 PAST SURGICAL HISTORY Procedure Laterality Date ARTERY TO VEIN SHUNT 06/28/[address] [facility] SECTION SINGLE 1997 COLONOSCOPY SCREENING 01/16/2023 EGD W/O BRSH SPEC VARICIES INJ 01/16/2023 ESOPHAGOGASTRODUODENOSCOPY TRANSORAL DIAGNOSTIC 03/23/2013 EGD HAND SURGERY HX Left trigger finger release 3 rd finger HYSTEROSCOPY, DIAGNOSTIC (SEPARATE 10/18/2021 IR IVC FILTER PLACEMENT 2010 MALIGNANT MELANOMA - WIDE EXCISION IN ANY AREA AND MUST INCLUDE > 1CM MARGINS AND LAYERED CLOSURE TONSILLECTOMY AND ADENOIDECTOMY VAGINAL HYSTERECTOMY 03/08/2022 total ALLERGIES Allergen Reactions Latex Rash Penicillins Anaphylaxis Tape [Adhesive Tape* Rash Toradol [Ketorolac] Swelling Tongue swelling REVIEW OF SYSTEMS GENERAL: No weight loss, malaise or fevers HEENT: Positive for headaches, No changes in hearing or vision, no nose bleeds or other nasal problems. He complains of sinus pain and sinus pressure. Yellow discharge. NECK: Negative for lumps, pain or neck swelling. RESPIRATORY: Negative for cough, hemoptysis, wheezing,dyspnea or shortness of breath CARDIOVASCULAR: Negative for chest pain, leg swelling, or palpitations GI: No nausea, vomiting, or diarrhea or constipation MUSCULOSKELETAL: Negative for joint pain or swelling, back pain or muscle pain, complains of neck pain and following with Ortho. SKIN: Negative for lesions, rash, and itching, brittle nails PSYCH: Negative for sleep disturbance, mood disorder and recent psychosocial stressors HEMATOLOGY/LYMPHOLOGY: Negative for prolonged bleeding, bruising easily or swollen nodes ENDOCRINE: Negative for cold or heat intolerance, polyuria, polydipsia and goiter, she has hair thinning and hair loss NEURO: Positive for headaches, denied syncope, paralysis, seizures or tremors Vitals: BP 116/77 Pulse 98 Wt 121 lb 6.4 oz (55.1kg) SpO2 100% LMP 03/08/2022 PHYSICAL EXAM: General Appearance: Well appearing, alert, in no acute distress, well-hydrated, well nourished.. Head: Normocephalic, atraumatic Eyes: Anicteric sclera. Pupils are equally round and reactive to light. Extraocular movements are intact. . Nose/Sinuses: Nasal congestion, septum midline, mucosa normal, yellow drainage and sinus tenderness facial and maxillary. Oropharynx: Lips, mucosa, and tongue normal, as dentures, oropharynx normal. Neck: Supple, no adenopathy Lungs: Lungs clear to auscultation. No wheezing, rhonchi, rales.. Heart: RRR without murmur, gallop, or rubs. . Extremities: No deformities, edema, skin discoloration, clubbing or cyanosis. Good capillary refill. . Peripheral Pulses: Normal. Neurologic: Gait normal. Reflexes normal and symmetric. Sensation grossly intact.. ASSESSMENT/PLAN: 1. Hair thinning - ICD9: 704.00, ICD10: L65.9 (primary diagnosis) -Patient TSH in March was normal, will obtain new lab. -If normal, will refer to rheum as patient wo (more content not included)... [facility] [id number] History of Present illness Narrative* Dwayne Mcdaniel MD - 07/16/2024 8:16 AM EDT Suha Calix is a 44 year old female patient with past medical history of anxiety and depression, DVT history, GERD, history of protein C deficiency, history of protein S deficiency, hypothyroidism, migraines who presents for follow-up on medical conditions and she is having a few concerns today. Has been seeing orthopedic for her neck pain, she was prescribed gabapentin 100 mg twice a day for pain by [facility]. She has an MRI coming up for her neck. She needs gabapentin refill Patient is complaining of brittle nails, hair falling and thinning. Last TSH in March was normal. She continues to take levothyroxine. She would like that checked again. Patient complains of yellow sinus drainage, sinus pressure and pain, headaches that have been occurring more than 2 weeks. Patient has a follow-up with oral surgeon on July 23 for dentures and a possible bone graft. Patient would like a DEXA scan done she is worried as she had long-term systemic steroid use. Patient also states she was diagnosed with MTHFR by a doctor in [place]. She would like a referral to hematology oncology used to see them in [place]. Discussed with patient that I need records. Screenings: -She has not done her mammogram, we will reschedule appointment -Colonoscopy completed on January 16, 2023, she will follow-up in 5 years -She had a complete hysterectomy 2 years ago Vaccines: -She will receive the flu and tetanus shot today -She will obtain COVID vaccine from pharmacy PAST MEDICAL HISTORY Diagnosis Date Anxiety and depression DVT (deep venous thrombosis) (HCC) GERD (gastroesophageal reflux disease) H/O protein C deficiency H/O protein S deficiency History of DVT (deep vein thrombosis) 10/04/2021 Hypothyroid Malignant melanoma (HCC) Melanoma (HCC) Migraines Other specified hypothyroidism 10/04/2021 PAST SURGICAL HISTORY Procedure Laterality Date ARTERY TO VEIN SHUNT 06/28/[address] [facility] SECTION SINGLE 1997 COLONOSCOPY SCREENING 01/16/2023 EGD W/O BRSH SPEC VARICIES INJ 01/16/2023 ESOPHAGOGASTRODUODENOSCOPY TRANSORAL DIAGNOSTIC 03/23/2013 EGD HAND SURGERY HX Left trigger finger release 3 rd finger HYSTEROSCOPY, DIAGNOSTIC (SEPARATE 10/18/2021 IR IVC FILTER PLACEMENT 2010 MALIGNANT MELANOMA - WIDE EXCISION IN ANY AREA AND MUST INCLUDE > 1CM MARGINS & LAYERED CLOSURE TONSILLECTOMY & ADENOIDECTOMY <AGE 12 VAGINAL HYSTERECTOMY 03/08/2022 total ALLERGIES Allergen Reactions Latex Rash Penicillins Anaphylaxis Tape [Adhesive Tape* Rash Toradol [Ketorolac] Swelling Tongue swelling REVIEW OF SYSTEMS GENERAL: No weight loss, malaise or fevers HEENT: Positive for headaches, No changes in hearing or vision, no nose bleeds or other nasal problems. He complains of sinus pain and sinus pressure. Yellow discharge. NECK: Negative for lumps, pain or neck swelling. RESPIRATORY: Negative for cough, hemoptysis, wheezing,dyspnea or shortness of breath CARDIOVASCULAR: Negative for chest pain, leg swelling, or palpitations GI: No nausea, vomiting, or diarrhea or constipation MUSCULOSKELETAL: Negative for joint pain or swelling, back pain or muscle pain, complains of neck pain and following with Ortho. SKIN: Negative for lesions, rash, and itching, brittle nails PSYCH: Negative for sleep disturbance, mood disorder and recent psychosocial stressors HEMATOLOGY/LYMPHOLOGY: Negative for prolonged bleeding, bruising easily or swollen nodes ENDOCRINE: Negative for cold or heat intolerance, polyuria, polydipsia and goiter, she has hair thinning and hair loss NEURO: Positive for headaches, denied syncope, paralysis, seizures or tremors Vitals: BP 116/77 Pulse 98 Wt 121 lb 6.4 oz (55.1kg) SpO2 100% LMP 03/08/2022 PHYSICAL EXAM: General Appearance: Well appearing, alert, in no acute distress, well-hydrated, well nourished.. Head: Normocephalic, atraumatic Eyes: Anicteric sclera. Pupils are equally round and reactive to light. Extraocular movements are intact. . Nose/Sinuses: Nasal congestion, septum midline, mucosa normal, yellow drainage and sinus tendernessfacial and maxillary. Oropharynx: Lips, mucosa, and tongue normal, as dentures, oropharynx normal. Neck: Supple, no adenopathy Lungs: Lungs clear to auscultation. No wheezing, rhonchi, rales.. Heart: RRR without murmur, gallop, or rubs. . Extremities: No deformities, edema, skin discoloration, clubbing or cyanosis. Good capillary refill. . Peripheral Pulses: Normal. Neurologic: Gait normal. Reflexes normal and symmetric. Sensation grossly intact.. ASSESSMENT/PLAN: 1. Hair thinning - ICD9: 704.00, ICD10: L65.9 (primary diagnosis) -Patient TSH in March was normal, will obtain new lab. -If normal, will refer to rheum as patient would like to be evaluated even though recent dereck was negative - CONSULT TO RHEUM/IMMUN DISEASE - THYROID STIMULATING HORMONE 2. Migraine with aura and without status migrainosus, not intractable - ICD9: 346.00, ICD10: G43.109 -Controlled, follow-up with neurology - ONDANSETRON 4 MG DISINTEGRATING TABLET 3. Brittle nails - ICD9: 703.8, ICD10: L60.3 -Labs obtained, if levothyroxine needs adjustment we will adjust - CONSULT TO RHEUM/IMMUN DISEASE - THYROID STIMULATING HORMONE 4. Hair loss - ICD9: 704.00, ICD10: L65.9 -Labs obtained - CONSULT TO RHEUM/IMMUN DISEASE - THYROID STIMULATING HORMONE 5. Acquired hypothyroidism - ICD9: 244.9, ICD10: E03.9 - Instructed patient on importance of taking on an empty stomach either first thing in the morning or at bedtime. - continue current dose of Synthroid, will adjust based on labs. - THYROID STIMULATING HORMONE - DXA-AXIAL SKELETON 6. 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 - DXA-AXIAL SKELETON - BD DXA TRABECULAR BONE SCORE (TBS) 7. H/O protein C deficiency - ICD9: V12.3, ICD10: Z86.2 -Patient was seeing heme-onc in [place] and would like to see them for the diagnosis of MTHFR . I do not see previous records that stated this diagnosis. Referred to heme-onc - DXA-AXIAL SKELETON - BD DXA TRABECULAR BONE SCORE (TBS) - CONSULT TO HEMATOLOGY/ONCOLOGY 8. Encounter for immunization - ICD9: V03.89, ICD10: Z23 - TDAP VACCINE, AGE 7+ YR (ADACEL, BOOSTRIX) - INFLUENZA VACCINE, PRSV FREE, AGE 6MO-64YR, TRIVALENT (AFLURIA, FLUARIX, FLULAVAL, FLUVIRIN, FLUZONE) 10. Bacterial sinusitis - ICD9: 473.9, 041.9, ICD10: J32.9, B96.89 - Will begin treatment with Doxycycline patient is allergic to penicillin. - Supportive care with plenty of fluids, rest, and analgesia prn. - Follow up in one week if symptoms persist or worsen. Dwayne Mcdaniel MD I reviewed her past medical, surgical, social, and family histories today and updated chart. Allergies, chronic medications, and supplements were also reviewed and the list is now up to date. Health maintenance has been discussed. [facility] Telephone encounter Note * Telephone Encounter - Suha Gordon MA - 07/03/2024 4:46 PM EDT Left message for patient to call the office back Number provided Suha Gordon MA [facility]09-11-2024 Miscellaneous Notes* Telephone Encounter - Suha Gordon MA - 07/03/2024 4:46 PM EDT Left message for patient to call the office back Number provided Suha Gordon MA * Telephone Encounter - Dwayne Mcdaniel MD - 07/03/2024 4:34 PM EDT Please let patient know labs are within normal limits thank you documented in this encounterPrem[facility] Telephone encounter Note * Telephone Encounter - Dwayne Mcdaniel MD - 07/03/2024 4:34 PM EDT Please let patient know labs are within normal limits thank you [facility]08-26-2024 Telephone encounter Note* Telephone Encounter - Román Mann - 06/17/2024 2:11 PM EDT Working of referrals waiting on office notes. [facility]08-26-2024 Miscellaneous Notes* Telephone Encounter - Román Mann - 06/17/2024 2:11 PM EDT Working of referrals waiting on office notes. documented in this encounterPrem[facility]08-23-2024 NoteHNO ID: [id number] Author: DWAYNE MCDANIEL MD Service: ? Author Type: Physician Type: Progress Notes Filed: 06/18/2024 12:27 Note Text: Suha Calix is a 44 year old female here today for a check up on her medical problems. Concern(s) today include: Joint pains and brain fog. She states this has been going on for a long time and she has seen ENT and Neurology Patient wants a consult to derm and ENT as she did not like her previous ENT. Migraines: Patient has been recently started on amitriptyline for migraines and states some improvement since starting. She continues to feel like she is having some brain fogginess that has been happening for a long time. Patient quit her albaro in April due to all her symptoms. Patient saw neurology and had an MRI ordered. She was also started on amitriptyline Patient saw ENT thinking this could be a problem in her ear. She stated she had felt congested in the past and feels like her sinuses were not draining appropriately. Saw ENT on 05/08/24 and stated it was a quick visit. She states her head feels full at all times. She would like a referral to another ENT. Dentist: xray of bone at top, has dentures, going to oral surgeon hoping that would help Multiple joint pains that have been happening for many years, patient has seen rheumatology in the past and is unsure of what labs were ordered. She has history of DVTS, protein C and S deficiency. LMP: Hysterectomy. Her medications were reviewed today and her list is now up to date. She is compliant on taking her medications :Yes She is tolerating her medication(s) without side effects: Yes She is following an appropriate diet for her medical problems: Yes She is getting some exercise in? No Social History Tobacco Use Smoking status: Former Current packs/day: 0.00 Average packs/day: 1 pack/day for 22.0 years (22.0 ttl pk-yrs) Types: Cigarettes Start date: 03/23/1994 Quit date: 03/23/2016 Years since quittin.2 Smokeless tobacco: Never Vaping Use Vaping status: Never Used Substance Use Topics Alcohol use: Not Currently Drug use: Never Comment: Only medical marijuania Review of Systems HENT: Positive for sinus pressure. Negative for congestion, ear discharge, ear pain, facial swelling, hearing loss, mouth sores, nosebleeds, rhinorrhea, sinus pain, sneezing, sore throat, tinnitus, trouble swallowing and voice change. Brain fogginess Eyes: Negative for photophobia, pain, discharge, redness, itching and visual disturbance. Respiratory: Negative for cough, choking, chest tightness, shortness of breath, wheezing and stridor. Cardiovascular: Negative for chest pain, palpitations and leg swelling. Gastrointestinal: Negative for abdominal distention, abdominal pain, constipation, diarrhea, nausea and vomiting. Endocrine: Negative. Genitourinary: Negative for dysuria, frequency and urgency. Musculoskeletal: Positive for arthralgias. Skin: Negative. Neurological: Positive for headaches. Negative for dizziness, tremors, seizures, facial asymmetry, speech difficulty, weakness, light-headedness and numbness. Psychiatric/Behavioral: Negative. PHYSICAL EXAM BP 98/64 Pulse 90 Ht 5' 5 (1.65m) Wt 126 lb (57.2kg) SpO2 98% LMP 03/08/2022 BMI 20.97 kg/(m2). Physical Exam Constitutional: Appearance: Normal appearance. HENT: Head: Normocephalic and atraumatic. Right Ear: Tympanic membrane, ear canal and external ear normal. There is no impacted cerumen. Left Ear: Tympanic membrane, ear canal and external ear normal. There is no impacted cerumen. Nose: Nose normal. No congestion or rhinorrhea. Mouth/Throat: Mouth: Mucous membranes are moist. Pharynx: No oropharyngeal exudate or posterior oropharyngeal erythema. Eyes: Conjunctiva/sclera: Conjunctivae normal. Cardiovascular: Rate and Rhythm: Normal rate and regular rhythm. Pulses: Normal pulses. Heart sounds: Normal heart sounds. No murmur heard. No friction rub. Pulmonary: Effort: Pulmonary effort is normal. No respiratory distress. Breath sounds: Normal breath sounds. No wheezing. Abdominal: General: Abdomen is flat. Bowel sounds are normal. Palpations: Abdomen is soft. Musculoskeletal: General: Tenderness present. No swelling. Normal range of motion. Cervical back: Neck supple. Lymphadenopathy: Cervical: No cervical adenopathy. Skin: General: Skin is warm. Coloration: Skin is not jaundiced. Neurological: General: No focal deficit present. Mental Status: She is alert and oriented to person, place, and time. Motor: No weakness. Coordination: Coordination normal. Gait: Gait normal. Deep Tendon Reflexes: Reflexes normal. Psychiatric: Mood and Affect: Mood normal. Behavior: Behavior normal. Thought Content: Thought content normal. Judgment: Judgment normal. ASSESSMENT/PLAN: 1. Hypothyroidism, unspecified type - ICD9: 244.9, ICD10: E03.9 (primary diagnosis (more content not included)...[facility] [id number] History of Present illness Narrative* Dwayne Mcdaniel MD - 06/14/2024 9:14 AM EDT Suha Calix is a 44 year old female here today for a check up on her medical problems. Concern(s) today include: Joint pains and brain fog. She states this has been going on for a long time and she has seen ENT and Neurology Patient wants a consult to derm and ENT as she did not like her previous ENT. Migraines: Patient has been recently started on amitriptyline for migraines and states some improvement since starting. She continues to feel like she is having some brain fogginess that has been happening for a long time. Patient quit her albaro in April due to all her symptoms. Patient saw neurology and had an MRI ordered.She was also started on amitriptyline Patient saw ENT thinking this could be a problem in her ear. She stated she had felt congested in the past and feels like her sinuses were not draining appropriately. Saw ENT on 05/08/24 and stated itwas a quick visit. She states her head feels full at all times. She would like a referral to another ENT. Dentist: xray of bone at top, has dentures, going to oral surgeon hoping that would help Multiple joint pains that have been happening for many years, patient has seen rheumatology in the past and is unsure of what labs were ordered. She has history of DVTS, protein C and S deficiency. LMP: Hysterectomy. Her medications were reviewed today and her list is now up to date. She is compliant on taking her medications :Yes She is tolerating her medication(s) without side effects: Yes She is following an appropriate diet for her medical problems: Yes She is getting some exercise in? No Social History Tobacco Use Smoking status: Former Current packs/day: 0.00 Average packs/day: 1 pack/day for 22.0 years (22.0 ttl pk-yrs) Types: Cigarettes Start date: 03/23/1994 Quit date: 03/23/2016 Years since quittin.2 Smokeless tobacco: Never Vaping Use Vaping status: Never Used Substance Use Topics Alcohol use: Not Currently Drug use: Never Comment: Only medical [facility] Review of Systems HENT: Positive for sinus pressure. Negative for congestion, ear discharge, ear pain, facial swelling, hearing loss, mouth sores, nosebleeds, rhinorrhea, sinus pain, sneezing, sore throat, tinnitus, trouble swallowing and voice change. Brain fogginess Eyes: Negative for photophobia, pain, discharge, redness, itching and visual disturbance. Respiratory: Negative for cough, choking, chest tightness, shortness of breath, wheezing and stridor. Cardiovascular: Negative for chest pain, palpitations and leg swelling. Gastrointestinal: Negative for abdominal distention, abdominal pain, constipation, diarrhea, nauseaand vomiting. Endocrine: Negative. Genitourinary: Negative for dysuria, frequency and urgency. Musculoskeletal: Positive for arthralgias. Skin: Negative. Neurological: Positive for headaches. Negative for dizziness, tremors, seizures, facial asymmetry, speech difficulty, weakness, light-headedness and numbness. Psychiatric/Behavioral: Negative. PHYSICAL EXAM BP 98/64 Pulse 90 Ht 5' 5 (1.65m) Wt 126 lb (57.2kg) SpO2 98% LMP 03/08/2022 BMI 20.97kg/(m^2). Physical Exam Constitutional: Appearance: Normal appearance. HENT: Head: Normocephalic and atraumatic. Right Ear: Tympanic membrane, ear canal and external ear normal. There is no impacted cerumen. Left Ear: Tympanic membrane, ear canal and external ear normal. There is no impacted cerumen. Nose: Nose normal. No congestion or rhinorrhea. Mouth/Throat: Mouth: Mucous membranes are moist. Pharynx: No oropharyngeal exudate or posterior oropharyngeal erythema. Eyes: Conjunctiva/sclera: Conjunctivae normal. Cardiovascular: Rate and Rhythm: Normal rate and regular rhythm. Pulses: Normal pulses. Heart sounds: Normal heart sounds. No murmur heard. No friction rub. Pulmonary: Effort: Pulmonary effort is normal. No respiratory distress. Breath sounds: Normal breath sounds. No wheezing. Abdominal: General: Abdomen is flat. Bowel sounds are normal. Palpations: Abdomen is soft. Musculoskeletal: General: Tenderness present. No swelling. Normal range of motion. Cervical back: Neck supple. Lymphadenopathy: Cervical: No cervical adenopathy. Skin: General: Skin is warm. Coloration: Skin is not jaundiced. Neurological: General: No focal deficit present. Mental Status: She is alert and oriented to person, place, and time. Motor: No weakness. Coordination: Coordination normal. Gait: Gait normal. Deep Tendon Reflexes: Reflexes normal. Psychiatric: Mood and Affect: Mood normal. Behavior: Behavior normal. Thought Content: Thought content normal. Judgment: Judgment normal. ASSESSMENT/PLAN: 1. Hypothyroidism, unspecified type - ICD9: 244.9, ICD10: E03.9 (primary diagnosis) - Instructed patient on importance of taking on an empty stomach either first thing in the morning or at bedtime. - continue current dose of Synthroid 0.112 mg - C-REACTIVE PROTEIN - SEDIMENTATION RATE, WESTERGREN 2. Encounter for screening mammogram for breast cancer - ICD9: V76.12, ICD10: Z12.31 - Encouraged monthly BSE - Follow up for annual exam in one year. - MOSES SCREENING W R[facility]MOND 3. Acute right-sided low back pain with right-sided sciatica - ICD9: 724.2, 724.3, ICD10: M54.41 Chronic low back pain - Warm moist heat for 20 min three times a day - Will consult orthopedics as I do not want patient to continue taking NSAIDs daily. - CONSULT TO ORTHOPAEDICS - C-REACTIVE PROTEIN - SEDIMENTATION RATE, WESTERGREN - DERECK BY IFA WITH REFLEX - CCP ANTIBODY IGG 4. Other migraine without status migrainosus, not intractable - ICD9: 346.80, ICD10: G43.809 - following up with neurology. Will obtain records. - CONSULT TO ENT 5. Adjustment disorder with mixed anxiety and depressed mood - ICD9: 309.28, ICD10: F43.23 - stable 6. Headaches - ICD9: 784.0, ICD10: R51.9 - Will send to ENT - States amitriptyline is showing improvement since starting a few days ago. - will order autoimmune panel given arthralgias for multiple years, headaches, brain fogginess and sometimes has rash with son exposure. - CONSULT TO ENT - C-REACTIVE PROTEIN - SEDIMENTATION RATE, WESTERGREN - CCP ANTIBODY IGG - FERRITIN 7. Malignant melanoma, unspecified site (HCC) - ICD9: 172.9, ICD10: C43.9 - continue with dermatology - CONSULT TO DERMATOLOGY - SEDIMENTATION RATE, WESTERGREN 8. Chronic pain syndrome - ICD9: 338.4, ICD10: G89.4 - continue with pain management. - C-REACTIVE PROTEIN - SEDIMENTATION RATE, WESTERGREN - DERECK BY IFA WITH REFLEX - CCP ANTIBODY IGG - FERRITIN 9. Arthralgia, unspecified joint - ICD9: 719.40, ICD10: M25.50 - RHEUMATOID FACTOR - DERECK BY IFA WITH REFLEX - CCP ANTIBODY IGG - FERRITIN 10. Low serum potassium - ICD9: 276.8, ICD10: E87.6 - will order labs and manage based on blood levels. - COMPREHENSIVE METABOLIC PANEL Dwayne Mcdaniel MD I reviewed her past medical, surgical, social, and family histories today and updated chart. Allergies, chronic medications, and supplements were also reviewed and the list is now up to date. Health maintenance has been discussed. [facility] Surgical operation note* Operative Report - Misael Wall MD - 06/11/2024 10:14 AM EDT PATIENT: Suha Calix SURGEON: Primary: Misael Wall MD : 1980 DATE OF SURGERY: June 11, 2024 PRE-OP Diagnosis: Myofascial pain syndrome [M79.18] POST-OP Diagnosis: Same Procedure: Procedure(s): INJECTION TRIGGER POINT THREE OR MORE MUSCLES (neck/upper back) Anesthesia Type: Local The following procedure was performed in the office today: Trigger Point Injection(s): (63869) -Informed consent was obtained and all patient questions were answered. After discussing the risks,benefits, prognosis, and alternatives to the procedure, the patient expressed understanding and wished to proceed. A pre-procedural pause was conducted to verify: correct patient identity, procedure to be performed and as applicable, correct side and site, correct patient position, and any special requirements. -Procedure: The trigger points injections were performed today in the office with aseptic technique. The patient tolerated the procedure well and was discharged after an appropriate period of observation. Trigger points injected (#): 10 Muscle groups: Bilateral trapezius, bilateral thoracic paraspinous, bilateral lower cervical paraspinous Injectate: total of 10 mL of 0.25% bupivacaine; distributed equally at each site. [facility] Work Phone: [phone]) 779-562708-20-2024 Surgical operation note* Operative Report - Misael Wall MD - 06/11/2024 10:14 AM EDT PATIENT: Suha Calix SURGEON: Primary: Misael Wall MD : 1980 DATE OF SURGERY: June 11, 2024 PRE-OP Diagnosis: Myofascial pain syndrome [M79.18] POST-OP Diagnosis: Same Procedure: Procedure(s): INJECTION TRIGGER POINT THREE OR MORE MUSCLES (neck/upper back) Anesthesia Type: Local The following procedure was performed in the office today: Trigger Point Injection(s): ([id number]) -Informed consent was obtained and all patient questions were answered. After discussing the risks,benefits, prognosis, and alternatives to the procedure, the patient expressed understanding and wished to proceed. A pre-procedural pause was conducted to verify: correct patient identity, procedure to be performed and as applicable, correct side and site, correct patient position, and any special requirements. -Procedure: The trigger points injections were performed today in the office with aseptic technique. The patient tolerated the procedure well and was discharged after an appropriate period of observation. Trigger points injected (#): 10 Muscle groups: Bilateral trapezius, bilateral thoracic paraspinous, bilateral lower cervical paraspinous Injectate: total of 10 mL of 0.25% bupivacaine; distributed equally at each site. documented in this encounterPrem[facility] Telephone encounter Note * Telephone Encounter - Kaylee Jimenez - 06/10/2024 1:01 PM EDT I left a message regarding the information below. Kaylee Jimenez June 10, 2024 1:01 PM [facility]08-19-2024 Miscellaneous Notes* Telephone Encounter - Kaylee Jimenez - 06/10/2024 1:01 PM EDT I left a message regarding the information below. Kaylee Jimenez June 10, 2024 1:01 PM * Telephone Encounter - Kaylee Jimenez - 06/07/2024 9:37 AM EDT I left a message for Suha to inform her the procedure on June 11 is scheduled for 2:00. I made a mistake and the 9:30 was taken. Kaylee Jimenez June 07, 2024 9:38 AM documented in this encounterPrem[facility]08-16-2024 Telephone encounter Note * Telephone Encounter - Kaylee Jimenez - 06/07/2024 9:37 AM EDT I left a message for Suha to inform her the procedure on June 11 is scheduled for 2:00. I made a mistake and the 9:30 was taken. Kaylee Jimenez June 07, 2024 9:38 AM [facility]08-15-2024 Telephone encounter Note* Telephone Encounter - Fab Vyas MA - 06/06/2024 11:16 AM EDTSummary: Patient Outreach I called and spoke with patient. Fab Vyas MA [facility]08-15-2024 Miscellaneous Notes* Telephone Encounter - Fab Vyas MA - 06/06/2024 11:16 AM EDTSummary: Patient Outreach I called and spoke with patient. Fab Vyas MA * Telephone Encounter - Magalys Quintero - 06/05/2024 3:13 PM EDT Patient calls today. Reason for Call: patient called and stated she wanted to transfer to Dr Mcdaniel as she wants to be seen by a Dr because of her many health issues. Appointment scheduled with Dr Mcdaniel. Patient then stated how do I go about getting in touch with the practice clinician regarding a provider Advised message would be sent and patients call back number was verified. Please call patient at [phone] (home) [phone] (cell) Patient last appointment: 06/05/2024 Magalys Quintero documented in this encounterPrem[facility]08-14-2024 Telephone encounter Note * Telephone Encounter - Magalys Quintero - 06/05/2024 3:13 PM EDT Patient calls today. Reason for Call: patient called and stated she wanted to transfer to Dr Mcdaniel as she wants to be seen by a Dr because of her many health issues. Appointment scheduled with Dr Mcdaniel. Patient then stated how do I go about getting in touch with the practice clinician regarding a provider Advised message would be sent and patients call back number was verified. Please call patient at [phone] (home) [phone] (cell) Patient last appointment: 06/05/2024 Magalys Quintero [facility]08-14-2024 History of Present illness Narrative* Jaison Barragan, RT(R) - 06/05/2024 10:15 AM EDT Radiology Service Progress Note PATIENT NAME: Suha Calix DATE OF SERVICE: June 05, 2024 TIME: 9:36 AM PATIENT IDENTITY VERIFICATION COMPLETED USING TWO (2) IDENTIFIERS: Name and Date of confirmedby patient verbally and Name and Date of confirmed by identification band. FALL SCREENING: Has the patient had 2 falls in the last year or 1 fall with injury or currently using an Ambulatory Assistive Device (Walker, Cane, Wheelchair, Crutches, etc.)? No PATIENT GENDER DATA: Female. status: : No status: NO. PATIENT RELEVANT IMPLANT DATA REVIEWED: Not Applicable PATIENT PRESENTS WITH AN IMPLANTABLE OR ATTACHED CONTRACT ADMINISTRATION MANAGER: No RADIOLOGY DEPARTMENT: General X-ray: Exam(s) Completed: Spine X-Ray(s): Cervical AP / LAT / OBL PERIPHERAL IV DATA: Not applicable SIGNED BY: GENIA Vázquez) June 05, 2024 9:36 AM documented in this encounterPremier Health [facility]08-14-2024 NoteHNO ID: [id number] Author: JAISON BARRAGAN RT (R) Service: Nursing Author Type: Technologist Type: Progress Notes Filed: 06/05/2024 09:36 Note Text: Radiology Service Progress Note PATIENT NAME: Suha Calix DATE OF SERVICE: June 05, 2024 TIME: 9:36 AM PATIENT IDENTITY VERIFICATION COMPLETED USING TWO (2) IDENTIFIERS: Name and Date of confirmed by patient verbally and Name and Date of confirmed by identification band. FALL SCREENING: Has the patient had 2 falls in the last year or 1 fall with injury or currently using an Ambulatory Assistive Device (Walker, Cane, Wheelchair, Crutches, etc.)? No PATIENT GENDER DATA: Female. status: : No status: NO. PATIENT RELEVANT IMPLANT DATA REVIEWED: Not Applicable PATIENT PRESENTS WITH AN IMPLANTABLE OR ATTACHED CONTRACT ADMINISTRATION MANAGER: No RADIOLOGY DEPARTMENT: General X-ray: Exam(s) Completed: Spine X-Ray(s): Cervical AP / LAT / OBL PERIPHERAL IV DATA: Not applicable SIGNED BY: RT Gurpreet(Adolfo) June 05, 2024 9:36 [id number] Telephone encounter Note* Telephone Encounter - Joshua Riley - 06/05/2024 9:01 AM EDT Referral demographics and office notes have been faxed to Dr. Quiroga. Patient advised their office will reach out to schedule. [facility]08-14-2024 Miscellaneous Notes* Telephone Encounter - Joshua Riley - 06/05/2024 9:01 AM EDT Referral demographics and office notes have been faxed to Dr. Quiroga. Patient advised their office will reach out to schedule. documented in this encounterPrem[facility]08-14-2024 NoteHNO ID: [id number] Author: ROSALINA HILTON APRN.PREPARED FOODS SERVICE TEAM MEMBER Service: ? Author Type: Nurse Practitioner Type: Progress Notes Filed: 06/05/2024 08:43 Note Text: HPI DEPRESSION / ANXIETY FOLLOW UP Suha Calix is a 44 year old female who returns for follow up of Depression, Anxiety, Insomnia Seen 05/07/2024 started Cymbalta Depressed mood /sadness: Partial relief Seeing Neurology for migraines, started new medication Did see ENT I felt like he blew me off CT sinuses Seeing Dentist for issues with dentures Irritable / grumpy:Improved Energy level: Fair Appetite: Good Significant weight loss or gain: No Concentration: Fair Decreased interest in activities: Improved, worried about recent test results Difficulty falling asleep:Worrying Difficulty staying asleep / waking in middle of the night: Awake worrying Restlessness:No Thoughts of hurting self: No Previously tried to hurt self: No Thoughts of hurting others: No Anxiety symptoms Worrying alot (more than most people, worries about minor things): Yes, tearfullness Panic attacks (chest pain, heart racing, trouble breathing, feeling like something bad going to happen): No Treatment Current medication: Yes Taking daily: Yes Medication helping symptoms: Partially Medication side effects: No Counseling: No ALLERGIES Allergen Reactions Latex Rash Penicillins Anaphylaxis Tape [Adhesive Tape* Rash Toradol [Ketorolac] Swelling Tongue swelling PAST MEDICAL HISTORY No date: Anxiety and depression No date: DVT (deep venous thrombosis) (HCC) No date: GERD (gastroesophageal reflux disease) No date: H/O protein C deficiency No date: H/O protein S deficiency 10/04/2021: History of DVT (deep vein thrombosis) No date: Hypothyroid No date: Malignant melanoma (HCC) No date: Melanoma (HCC) No date: Migraines 10/04/2021: Other specified hypothyroidism PAST SURGICAL HISTORY 06/28/2023: ARTERY TO VEIN SHUNT Comment: ILIAC. [facility]: SECTION SINGLE 01/16/2023: COLONOSCOPY SCREENING 01/16/2023: EGD W/O [facility]SH SPEC VARICIES INJ 03/23/2013: ESOPHAGOGASTRODUODENOSCOPY TRANSORAL DIAGNOSTIC Comment: EGD No date: HAND SURGERY HX; Left Comment: trigger finger release 3 rd finger 10/18/2021: HYSTEROSCOPY, DIAGNOSTIC (SEPARATE 2011: IR IVC FILTER PLACEMENT No date: MALIGNANT MELANOMA - WIDE EXCISION IN ANY AREA AND MUST INCLUDE > 1CM MARGINS AND LAYERED CLOSURE No date: TONSILLECTOMY AND ADENOIDECTOMY 03/08/2022: VAGINAL HYSTERECTOMY Comment: total FAMILY HISTORY Problem Relation Age of Onset Clotting Disorder Father Protein C and S deficiency No Known Problems Mother Clotting Disorder Paternal Grandfather Anesthesia Problems No Family History Social History Tobacco Use Smoking status: Former Packs/day: 1.00 Years: 22.00 Additional pack years: 0.00 Total pack years: 22.00 Types: Cigarettes Quit date: 03/23/2016 Years since quittin.2 Smokeless tobacco: Never Vaping Use Vaping Use: Never used Substance Use Topics Alcohol use: Not Currently Drug use: Never Comment: Only medical [facility] Current Outpatient Medications Medication Sig Dispense Refill tiZANidine (ZANAFLEX) 4 mg tablet Take 0.5-1 tablets by mouth three times a day as needed (muscle spasms). 90 tablet 3 levothyroxine (SYNTHROID) 112 mcg tablet take 1 tablet daily 90 tablet 3 apixaban (ELIQUIS) 5 mg tab(s) Take 1 tablet by mouth two times a day. 60 tablet 1 eletriptan (RELPAX) 20 mg tablet Take 1 tablet (20 mg) by mouth as needed for migraine headache (see administration instructions). may repeat in 2 hours if necessary 10 tablet 5 DULoxetine (CYMBALTA) 30 mg capsule Take 1 capsule by mouth once daily. [address] (PROTONIX) 40 mg tablet Take 1 tablet by mouth once daily. 90 tablet 1 topiramate (TOPAMAX) 100 mg tablet Take 1 tablet by mouth two times a day. 180 tablet 1 ergocalciferol 50,000 unit capsule (VITAMIN D2, DRISDOL) Take 1 capsule by mouth one time a week. Use as directed. 12 capsule 1 dicyclomine (BENTYL) 20 mg tablet TAKE ONE TABLET BY MOUTH THREE TIMES A DAY NEEDED FOR ABDOMINAL PAIN 270 tablet 1 fluticasone (FLONASE) 50 mcg/actuation nasal spray USE 1 SPRAY IN EACH NOSTRIL ONCE DAILY 16 mL 1 ibuprofen (MOTRIN) 600 mg tablet Take 1 tablet by mouth every 6 hours. Take with food. 60 tablet 0 polyethylene glycol 3350 (MIRALAX, GLYCOLAX) 17 gram/dose powder Take 17 g by mouth once daily. 510 g 4 ondansetron orally disintegrating (ZOFRAN ODT) 4 mg disintegrating tablet Take 1 tablet by mouth every 8 hours as needed for nausea/vomiting. 30 tablet 5 No current facility-administered medications for this visit. REVIEW OF SYSTEMS: GENERAL: Mild fatigue, did lose few pounds HEENT: Headaches, seeing Neurology RESPIRATORY: Negative for cough, wheezing and shortness of breath CARDIOVASCULAR: Negative for chest pain, palpitations (more content not included)...[facility] [id number] History of Present illness Narrative* Rosalina Hilton APRN.PREPARED FOODS SERVICE TEAM MEMBER - 06/05/2024 8:31 AM EDT HPI DEPRESSION / ANXIETY FOLLOW UP Suha Calix is a 44 year old female who returns for follow up of Depression, Anxiety, Insomnia Seen 05/07/2024 started Cymbalta Depressed mood /sadness: Partial relief Seeing Neurology for migraines, started new medication Did see ENT I felt like he blew me off CT sinuses Seeing Dentist for issues with dentures Irritable / grumpy:Improved Energy level: Fair Appetite: Good Significant weight loss or gain: No Concentration: Fair Decreased interest in activities: Improved, worried about recent test results Difficulty falling asleep:Worrying Difficulty staying asleep / waking in middle of the night: Awake worrying Restlessness:No Thoughts of hurting self: No Previously tried to hurt self: No Thoughts of hurting others: No Anxiety symptoms Worrying alot (more than most people, worries about minor things): Yes, tearfullness Panic attacks (chest pain, heart racing, trouble breathing, feeling like something bad going to happen): No Treatment Current medication: Yes Taking daily: Yes Medication helping symptoms: Partially Medication side effects: No Counseling: No ALLERGIES Allergen Reactions Latex Rash Penicillins Anaphylaxis Tape [Adhesive Tape* Rash Toradol [Ketorolac] Swelling Tongue swelling PAST MEDICAL HISTORY No date: Anxiety and depression No date: DVT (deep venous thrombosis) (HCC) No date: GERD (gastroesophageal reflux disease) No date: H/O protein C deficiency No date: H/O protein S deficiency 10/04/2021: History of DVT (deep vein thrombosis) No date: Hypothyroid No date: Malignant melanoma (HCC) No date: Melanoma (HCC) No date: Migraines 10/04/2021: Other specified hypothyroidism PAST SURGICAL HISTORY 06/28/2023: ARTERY TO VEIN SHUNT Comment: ILIAC. [facility] 1998: SECTION SINGLE 01/16/2023: COLONOSCOPY SCREENING 01/16[facility]2023[facility] 03/23/2013: ESOPHAGOGASTRODUODENOSCOPY TRANSORAL DIAGNOSTIC Comment: EGD No date: HAND SURGERY HX; Left Comment: trigger finger release 3 rd finger 10/18/2021: HYSTEROSCOPY, DIAGNOSTIC (SEPARATE 2011: IR IVC FILTER PLACEMENT No date: MALIGNANT MELANOMA - WIDE EXCISION IN ANY AREA AND MUST INCLUDE > 1CM MARGINS & LAYERED CLOSURE No date: TONSILLECTOMY & ADENOIDECTOMY <AGE 12 03/08/2022: VAGINAL HYSTERECTOMY Comment: total FAMILY HISTORY Problem Relation Age of Onset Clotting Disorder Father Protein C and S deficiency No Known Problems Mother Clotting Disorder Paternal Grandfather Anesthesia Problems No Family History Social History Tobacco Use Smoking status: Former Packs/day: 1.00 Years: 22.00 Additional pack years: 0.00 Total pack years: 22.00 Types: Cigarettes Quit date: 03/23/2016 Years since quittin.2 Smokeless tobacco: Never Vaping Use Vaping Use: Never used Substance Use Topics Alcohol use: Not Currently Drug use: Never Comment: Only medical [facility] Current Outpatient Medications Medication Sig Dispense Refill tiZANidine (ZANAFLEX) 4 mg tablet Take 0.5-1 tablets by mouth three times a day as needed (muscle spasms). 90 tablet 3 levothyroxine (SYNTHROID) 112 mcg tablet take 1 tablet daily 90 tablet 3 apixaban (ELIQUIS) 5 mg tab(s) Take 1 tablet by mouth two times a day. 60 tablet 1 eletriptan (RELPAX) 20 mg tablet Take 1 tablet (20 mg) by mouth as needed for migraine headache (see administration instructions). may repeat in 2 hours if necessary 10 tablet 5 DULoxetine (CYMBALTA) 30 mg capsule Take 1 capsule by mouth once daily. [address] (PROTONIX) 40 mg tablet Take 1 tablet by mouth once daily. 90 tablet 1 topiramate (TOPAMAX) 100 mg tablet Take 1 tablet by mouth two times a day. 180 tablet 1 ergocalciferol 50,000 unit capsule (VITAMIN D2, DRISDOL) Take 1 capsule by mouth one time a week. Use as directed. 12 capsule 1 dicyclomine (BENTYL) 20 mg tablet TAKE ONE TABLET BY MOUTH THREE TIMES A DAY NEEDED FOR ABDOMINAL PAIN 270 tablet 1 fluticasone (FLONASE) 50 mcg/actuation nasal spray USE 1 SPRAY IN EACH NOSTRIL ONCE DAILY 16 mL 1 ibuprofen (MOTRIN) 600 mg tablet Take 1 tablet by mouth every 6 hours. Take with food. 60 tablet 0 polyethylene glycol 3350 (MIRALAX, GLYCOLAX) 17 gram/dose powder Take 17 g by mouth once daily. 510g 4 ondansetron orally disintegrating (ZOFRAN ODT) 4 mg disintegrating tablet Take 1 tablet by mouth every 8 hours as needed for nausea/vomiting. 30 tablet 5 No current facility-administered medications for this visit. REVIEW OF SYSTEMS: GENERAL: Mild fatigue, did lose few pounds HEENT: Headaches, seeing Neurology RESPIRATORY: Negative for cough, wheezing and shortness of breath CARDIOVASCULAR: Negative for chest pain, palpitations NEUROLOGIC: Negative for dizziness PSYCHIATRIC: Negative for sleep disturbance, partially improved mood but increased anxiety because CT scan showed whole in my mouth BP 94/68 Pulse 94 Ht 165.1 cm (5' 5) Wt 54 kg (119 lb) LMP 03/08/2022 SpO2 100% BMI 19.80 kg/m BMI 19.80 kg/(m^2) PHYSICAL EXAMINATION: General appearance: Cooperative, in no acute distress, alert Skin: Skin color, texture, turgor normal. No rashes or lesions. Head: Normocephalic. Lungs: Good diaphragmatic excursion. Lungs clear to auscultation. Heart: RRR. Normal HS with no murmurs Psychiatric: Improved partially, tactfulness Neuro: Gait normal ASSESSMENT/PLAN: 1. Adjustment disorder with mixed anxiety and depressed mood - ICD9: 309.28, ICD10: F43.23 Increase Cymbalta Continue with ENT, Neurology and Dentist - DULOXETINE 60 MG CAPSULE,DELAYED RELEASE 2. Myofascial pain syndrome - ICD9: 729.1, ICD10: M79.18 - CONSULT TO ENT 3. Sinus drainage - ICD9: 478.19, ICD10: J34.89 Request referral - CONSULT TO ENT Rosalina Hilton APRN.PREPARED FOODS SERVICE TEAM MEMBER documented in this encounterPrem[facility] Health [facility]08-[facility]-2024 Instructions* Patient Instructions* Madison Denny PA-C - 05/27/2024 2:54 PM EDT The OARRS report has been reviewed and is consistent with the patients medical history and medication intake. Continue with the tizanidine and compounding cream. Continue using TENS unit. The patient was given a brochure [facility]. Continue with core strengthening and range of motion exercises Continue with the topamax and eletriptan for the migraines. FU in the office in Order a cervical xray for further evaluation of the neck pain. Schedule trigger point injections in the neck/upper back x 1 visit. Supervising Physiciain - Dr. Misael Wall MD Procedure to be done: Trigger Point Injection A rolloff driver is required: No Oral Sedation is requested : No If you are receiving oral sedation, you may eat a light meal. Clothing to wear: Back injections - elastic waist/jogging pants Neck injections - wide neck or button down shirt; please do not wear neck jewelry Plan to take it easy the rest of the day following your procedure. You may resume normal [id number] hours following your procedure or as otherwise instructed. Special Instructions - NONE documented in this encounterPremier Health [facility]08-05-2024 NoteHNO ID: [id number] Author: MADISON DENNY PA-C Service: ? Author Type: Physician Toggle Press Operator Type: Progress Notes Filed: 05/27/2024 15:24 Note Text: This note was created using [employer]. Subjective Suha Calix is a 44 year old female. The patient primarily being seen for low back pain, also new pain in neck Patient was last seen on: 05/18/23 At that time, the treatment plan was: see notes Current Meds: tizanidine - two months ago - ran out, compounded cream - am Efficacy: some Side effects: drowsy TENS unit: yes How often used: daily Benefit: helps Physical Therapy: 14 years ago for neck, 2021 - back Last UDS: Last injection: 01/25/22 - TPI OARRS reviewed At the present time, the patient reports some benefit with her present analgesic therapy. She states that the tizanidine makes her drowsy. Since her previous visit, she denies any hospitalizations or ER visits. We had wanted to do SI injections but these were denied by her insurance and then she has not been back since last April. She has a new job and states that working long hours have aggravated her pain levels. She is also now having pain in her neck. She has previously had trigger point injections done and states she believes she got at least a month of over 50% relief. She is interested in repeating these. 05/27/2024 05/27/2024 INTAKE PAIN ASSESSMENT Are you having pain associated with your visit today? Yes, Provider notified Pain Scales Verbal (Numeric Rating or Visual Analog Scale) Verbal (Numeric Rating or Visual Analog Scale) Pain Level 6 5 Pain Location Neck-Posterior Back-Lower Description Sharp;Tightness Spasm;Throbbing Frequency Continuous Intermittent Intervention/Comfort measure Reposition;Medication;Relaxation;Heat;Massage Medication;Reposition;Relaxation;Massage Back Pain Pertinent negatives include no fever. PAST MEDICAL HISTORY No date: Anxiety and depression No date: DVT (deep venous thrombosis) ([facility]) No date: GERD (gastroesophageal reflux disease) No date: H/O protein C deficiency No date: H/O protein S deficiency 10/04/2021: History of DVT (deep vein thrombosis) No date: Hypothyroid No date: Malignant melanoma (HCC) No date: Melanoma (HCC) No date: Migraines 10/04/2021: Other specified hypothyroidism PAST SURGICAL HISTORY 06/28/2023: ARTERY TO VEIN SHUNT Comment: ILIAC. [facility]: SECTION SINGLE 01/16/2023: COLONOSCOPY SCREENING 01/16/2023: EGD W/O [facility] SPEC VARICIES INJ 03/23/2013: ESOPHAGOGASTRODUODENOSCOPY TRANSORAL DIAGNOSTIC Comment: EGD No date: HAND SURGERY HX; Left Comment: trigger finger release 3 rd finger 10/18/2021: HYSTEROSCOPY, DIAGNOSTIC (SEPARATE 2011: IR IVC FILTER PLACEMENT No date: MALIGNANT MELANOMA - WIDE EXCISION IN ANY AREA AND MUST INCLUDE > 1CM MARGINS AND LAYERED CLOSURE No date: TONSILLECTOMY AND ADENOIDECTOMY 03/08/2022: VAGINAL HYSTERECTOMY Comment: total Social History Tobacco Use Smoking status: Former Packs/day: 1.00 Years: 22.00 Additional pack years: 0.00 Total pack years: 22.00 Types: Cigarettes Quit date: 03/23/2016 Years since quittin.1 Smokeless tobacco: Never Vaping Use Vaping Use: Never used Substance Use Topics Alcohol use: Not Currently Drug use: Never Comment: Only medical [facility] Review of Systems Constitutional: Negative for fever and unexpected weight change. Musculoskeletal: Positive for back pain. + neck pain, back pain, joint pain/swelling, muscle cramps/weakness, stiffness, arthritis, and leg pain with exertion. Objective BP 102/70 (BP Site: Left Arm, BP Position: Sitting, BP Cuff Size: Large Adult) Pulse 84 Temp 36.5 ?C (97.7 ?F) (Temporal) Resp 16 Ht 165.1 cm (5' 5) Wt 55.3 kg (122 lb) LMP 03/08/2022 SpO2 96% BMI 20.30 kg/m? Physical Exam Vitals and nursing note reviewed. Constitutional: Appearance: Normal appearance. She is well-developed, well-groomed and normal weight. HENT: Head: Normocephalic and atraumatic. Right Ear: Hearing normal. Left Ear: Hearing normal. Eyes: Conjunctiva/sclera: Conjunctivae normal. Musculoskeletal: Comments: She walks with a normal gait. She has tenderness to palpation in the cervical region with spasms noted in the trapezius, rhomboid, and paraspinal muscles. Strength is 5/5 throughout. Sensation is intact to light touch throughout. SLR is negative. She has tenderness to palpation over the right SI joint. +FABERs, compression, and distraction test. Neurological: Mental Status: She is alert and oriented to person, place, and time. Psychiatric: Attention and Perception: Attention and perception normal. Mood and Affect: Mood and affect normal. Speech: Speech normal. Behavior: Behavior normal. Behavior is cooperative. Thought Content: Thought content normal. Judgment: Judgment normal. Assessment and Plan ASSESSMENT/PLAN: 1. Sacroiliitis (HCC) - ICD9: 720.2 (more content not included)...[facility]08-05-2024 History of Present illness Narrative* Madison Denny PA-C - 05/27/2024 2:48 PM EDT This note was created using [employer]. Subjective Suha Calix is a 44 year old female. The patient primarily being seen for low back pain, also new pain in neck Patient was last seen on: 05/18/23 At that time, the treatment plan was: see notes Current Meds: tizanidine - two months ago - ran out, compounded cream - am Efficacy: some Side effects: drowsy TENS unit: yes How often used: daily Benefit: helps Physical Therapy: 14 years ago for neck, 2021 - back Last UDS: Last injection: 01/25/22 - TPI OARRS reviewed At the present time, the patient reports some benefit with her present analgesic therapy. She states that the tizanidine makes her drowsy. Since her previous visit, she denies any hospitalizations orER visits. We had wanted to do SI injections but these were denied by her insurance and then she has not been back since last April. She has a new job and states that working long hours have aggravated her pain levels. She is also now having pain in her neck. She has previously had trigger point injections done and states she believes she got at least a month of over 50% relief. She is interested in repeating these. 05/27/2024 05/27/2024 INTAKE PAIN ASSESSMENT Are you having pain associated with your visit today? Yes, Provider notified Pain Scales Verbal (Numeric Rating or Visual Analog Scale) Verbal (Numeric Rating or Visual Analog Scale) Pain Level 6 5 Pain Location Neck-Posterior Back-Lower Description Sharp;Tightness Spasm;Throbbing Frequency Continuous Intermittent Intervention/Comfort measure Reposition;Medication;Relaxation;Heat;Massage Medication;Reposition;Relaxation;Massage Back Pain Pertinent negatives include no fever. PAST MEDICAL HISTORY No date: Anxiety and depression No date: DVT (deep venous thrombosis) (HCC) No date: GERD (gastroesophageal reflux disease) No date: H/O protein C deficiency No date: H/O protein S deficiency 10/04/2021: History of DVT (deep vein thrombosis) No date: Hypothyroid No date: Malignant melanoma (HCC) No date: Melanoma (HCC) No date: Migraines 10/04/2021: Other specified hypothyroidism PAST SURGICAL HISTORY 06/28/2023: ARTERY TO VEIN SHUNT Comment: ILIAC. [facility] 1998: SECTION SINGLE 01/16/2023: COLONOSCOPY SCREENING 01/16/2023: EGD W/O BRSH SPEC VARICIES INJ 03/23/2013: ESOPHAGOGASTRODUODENOSCOPY TRANSORAL DIAGNOSTIC Comment: EGD No date: HAND SURGERY HX; Left Comment: trigger finger release 3 rd finger 10/18/2021: HYSTEROSCOPY, DIAGNOSTIC (SEPARATE 2011: IR IVC FILTER PLACEMENT No date: MALIGNANT MELANOMA - WIDE EXCISION IN ANY AREA AND MUST INCLUDE > 1CM MARGINS & LAYERED CLOSURE No date: TONSILLECTOMY & ADENOIDECTOMY <AGE 12 03/08/2022: VAGINAL HYSTERECTOMY Comment: total Social History Tobacco Use Smoking status: Former Packs/day: 1.00 Years: 22.00 Additional pack years: 0.00 Total pack years: 22.00 Types: Cigarettes Quit date: 03/23/2016 Years since quittin.1 Smokeless tobacco: Never Vaping Use Vaping Use: Never used Substance Use Topics Alcohol use: Not Currently Drug use: Never Comment: Only medical marijuania Review of Systems Constitutional: Negative for fever and unexpected weight change. Musculoskeletal: Positive for back pain. + neck pain, back pain, joint pain/swelling, muscle cramps/weakness, stiffness, arthritis, and leg pain with exertion. Objective BP 102/70 (BP Site: Left Arm, BP Position: Sitting, BP Cuff Size: Large Adult) Pulse 84 Temp 36.5 C (97.7 F) (Temporal) Resp 16 Ht 165.1 cm (5' 5) Wt 55.3 kg (122 lb) LMP 03/08/2022 SpO2 96% BMI 20.30 kg/m Physical Exam Vitals and nursing note reviewed. Constitutional: Appearance: Normal appearance. She is well-developed, well-groomed and normal weight. HENT: Head: Normocephalic and atraumatic. Right Ear: Hearing normal. Left Ear: Hearing normal. Eyes: Conjunctiva/sclera: Conjunctivae normal. Musculoskeletal: Comments: She walks with a normal gait. She has tenderness to palpation in the cervical region withspasms noted in the trapezius, rhomboid, and paraspinal muscles. Strength is 5/5 throughout. Sensation is intact to light touch throughout. SLR is negative. She has tenderness to palpation over the right SI joint. +FABERs, compression, and distraction test. Neurological: Mental Status: She is alert and oriented to person, place, and time. Psychiatric: Attention and Perception: Attention and perception normal. Mood and Affect: Mood and affect normal. Speech: Speech normal. Behavior: Behavior normal. Behavior is cooperative. Thought Content: Thought content normal. Judgment: Judgment normal. Assessment and Plan ASSESSMENT/PLAN: 1. Sacroiliitis (HCC) - ICD9: 720.2, ICD10: M46.1 (primary diagnosis) 2. Myofascial pain syndrome - ICD9: 729.1, ICD10: M79.18 - TIZANIDINE 4 MG TABLET - SURGICAL REQUEST - ELECTIVE (05/2020) 3. Neck pain - ICD9: 723.1, ICD10: M54.2 - XR CERV OTHER 4V AP/LAT/OBL PLAN: The [facility] report has been reviewed and is consistent with the patients medical history and medication intake. Continue with the tizanidine and compounding cream. Continue using TENS unit. The patient was given a brochure regarding the [facility]. Continue with core strengthening and range of motion exercises Continue with the topamax and eletriptan for the migraines. FU in the office in Order a cervical xray for further evaluation of the neck pain. Schedule trigger point injections in the neck/upper back x 1 visit. Madison Denny PA-C documented in this encounterPrem[facility] Nurse Note* Gwendolyn Lawson LPN - 05/27/2024 2:22 PM EDT Last seen 05/18/23 Pain - low back pain, now neck (new job, I'm working long hours, pain started again) Meds - tizanidine - ran out 2 months ago, compounding cream - last used this am, 2 x day Efficacy - Helps some. Side effects - Drowsy from tizanidine Ten's - Using daily - helps PT - 14 yrs go for neck, 2021 - low back Last UDS - no narcotics Last injection - (05/30/23 cx insurance denied) 01/25/22- TPI [facility]08-05-2024 Nurse Note* Gwendolyn Lawson LPN - 05/27/2024 2:22 PM EDT Last seen 05/18/23 Pain - low back pain, now neck (new job, I'm working long hours, pain started again) Meds - tizanidine - ran out 2 months ago, compounding cream - last used this am, 2 x day Efficacy - Helps some. Side effects - Drowsy from tizanidine Ten's - Using daily - helps PT - 14 yrs go for neck, 2021 - low back Last UDS - no narcotics Last injection - (05/30/23 cx insurance denied) 01/25/22- TPI documented in this encounterPremier [facility]07-29-2024 Telephone encounter Note * Telephone Encounter - Olamide Mcneill MA - 05/20/2024 7:21 AM EDT Prescription Refill Information The patient has been identified by name and date of : Yes Caregiver verified no other encounters exist for this prescription request: Yes Caregiver confirmed with patient/requestor that no other refills are due, in the near future, with this provider at this time: No The last office visit in the department: 05/07/2024 Does the patient have a future office visit with this provider/department: Yes Requested Prescriptions Pending Prescriptions Disp Refills levothyroxine (SYNTHROID) 112 mcg tablet [Pharmacy Med Name: L-THYROXINE (SYNTHROID) TABS 112MCG] 90 tablet 3 Sig: take 1 tablet daily Olamide Mcneill MA May 20, 2024 7:21 AM [facility]07-29-2024 Miscellaneous Notes* Telephone Encounter - Olamide Mcneill MA - 05/20/2024 7:21 AM EDT Prescription Refill Information The patient has been identified by name and date of : Yes Caregiver verified no other encounters exist for this prescription request: Yes Caregiver confirmed with patient/requestor that no other refills are due, in the near future, with this provider at this time: No The last office visit in the department: 05/07/2024 Does the patient have a future office visit with this provider/department: Yes Requested Prescriptions Pending Prescriptions Disp Refills levothyroxine (SYNTHROID) 112 mcg tablet [Pharmacy Med Name: L-THYROXINE (SYNTHROID) TABS 112MCG] 90 tablet 3 Sig: take 1 tablet daily Olamide Mcneill MA May 20, 2024 7:21 AM documented in this encounterPremier [facility]07-18-2024 Telephone encounter Note * Telephone Encounter - Suha Gordon MA - 05/09/2024 10:59 AM EDT DO NOT USE [facility]07-18-2024 Miscellaneous Notes* Telephone Encounter - Suha Gordon MA - 05/09/2024 10:59 AM EDT DO NOT USE documented in this encounterPremier Health [facility]07-16-2024 Telephone encounter Note * Telephone Encounter - Román Mann - 05/07/2024 1:01 PM EDT Faxed referral, demographics, office notes, and labs to Dr. Nunez. Patient advised that office willcall to schedule appointment. Román Mann [facility]07-16-2024 Miscellaneous Notes* Telephone Encounter - Román Mann - 05/07/2024 1:01 PM EDT Faxed referral, demographics, office notes, and labs to Dr. Nunez. Patient advised that office willcall to schedule appointment. Román Mann documented in this encounterPremier Health [facility]07-16-2024 NoteHNO ID: [id number] Author: ROSALINA HILTON APRN.[employer] TEAM MEMBER Service: ? Author Type: Nurse Practitioner Type: Progress Notes Filed: 05/07/2024 09:47 Note Text: Suha Claix is a 44 year old female here today for a check up on her ER follow up CP Concern(s) today include: Follow up ER Her medications were reviewed today and her list is now up to date. She is compliant on taking her medications :Yes She She is tolerating her medication(s) without side effects: Yes ER Follow Up: Seen [facility] ER 05/02/2024 with complaints left-sided chest pain with movement and deep inspiration Onset pain and symptoms one week Labs reviewed from ER, no concerns Chest XR 05/02/2024: IMPRESSION: . No acute process. EKG 05/02/2024: Impression Sinus bradycardia Possible Left atrial enlargement Borderline ECG No previous ECGs available Seen this office 04/29/2024, completed prednisone and tcontinues antibiotic No reported injury Hx clotting disorder and taking Elquis, no missed dosages Pain currently head congestion, increased nasal drainage, chest hurts ribs hurt from coughing No CP but tightness No reported SOB Fever and chills off and on Has appointment tomorrow see ENT Using Flonase daily Tearful, states I quit my job yesterday with all my health issues reports feeling frustrated Reports with sinuses increased migraines. States feels better since quit job. Denies this is NOT worst headache ever, pain headache 7-8 average Has taken Relpax as needed and dose improve pain partially Has slept very little past 2 days Has not seen Hematology recently Hx anxiety and depression, PHQ positive today and she is tearful, anxious ALLERGIES Allergen Reactions Latex Rash Penicillins Anaphylaxis Tape [Adhesive Tape* Rash Toradol [Ketorolac] Swelling Tongue swelling PAST MEDICAL HISTORY Diagnosis Date Anxiety and depression DVT (deep venous thrombosis) (HCC) GERD (gastroesophageal reflux disease) H/O protein C deficiency H/O protein S deficiency History of DVT (deep vein thrombosis) 10/04/2021 Hypothyroid Malignant melanoma (HCC) Melanoma (HCC) Migraines Other specified hypothyroidism 10/04/2021 PAST SURGICAL HISTORY Procedure Laterality Date SECTION SINGLE 1998 COLONOSCOPY SCREENING 01/16/2023 EGD W/O BRSH SPEC VARICIES INJ 01/16/2023 ESOPHAGOGASTRODUODENOSCOPY TRANSORAL DIAGNOSTIC 03/23/2013 EGD HAND SURGERY HX Left trigger finger release 3 rd finger HYSTEROSCOPY, DIAGNOSTIC (SEPARATE 10/18/2021 IR IVC FILTER PLACEMENT 2010 MALIGNANT MELANOMA - WIDE EXCISION IN ANY AREA AND MUST INCLUDE > 1CM MARGINS AND LAYERED CLOSURE TONSILLECTOMY AND ADENOIDECTOMY VAGINAL HYSTERECTOMY 03/08/2022 total FAMILY HISTORY Problem Relation Age of Onset Clotting Disorder Father Protein C and S deficiency No Known Problems Mother Clotting Disorder Paternal Grandfather Anesthesia Problems No Family History Social History Tobacco Use Smoking status: Former Packs/day: 1.00 Years: 22.00 Additional pack years: 0.00 Total pack years: 22.00 Types: Cigarettes Quit date: 03/23/2016 Years since quittin.1 Smokeless tobacco: Never Vaping Use Vaping Use: Never used Substance Use Topics Alcohol use: Not Currently Drug use: Never Current Outpatient Medications Medication Sig Dispense Refill doxycycline hyclate (VIBRAMYCIN) 100 mg capsule Take 1 capsule (100 mg) by mouth two times a day for 10 days. 20 capsule 0 eletriptan (RELPAX) 20 mg tablet Take 1 tablet (20 mg) by mouth as needed for migraine headache (see administration instructions). may repeat in 2 hours if necessary 10 tablet 5 apixaban (ELIQUIS) 5 mg tab(s) Take 5 mg by mouth two times a day. pantoprazole DR (PROTONIX) 40 mg tablet Take 1 tablet by mouth once daily. 90 tablet 1 topiramate (TOPAMAX) 100 mg tablet Take 1 tablet by mouth two times a day. 180 tablet 1 levothyroxine (SYNTHROID) 112 mcg tablet Take 1 tablet by mouth once daily. 90 tablet 0 ergocalciferol 50,000 unit capsule (VITAMIN D2, DRISDOL) Take 1 capsule by mouth one time a week. Use as directed. 12 capsule 1 tiZANidine (ZANAFLEX) 4 mg tablet Take 0.5-1 tablets by mouth three times daily as needed. 270 tablet 1 dicyclomine (BENTYL) 20 mg tablet TAKE ONE TABLET BY MOUTH THREE TIMES A DAY NEEDED FOR ABDOMINAL PAIN 270 tablet 1 fluticasone (FLONASE) 50 mcg/actuation nasal spray USE 1 SPRAY IN EACH NOSTRIL ONCE DAILY 16 mL 1 ibuprofen (MOTRIN) 600 mg tablet Take 1 tablet by mouth every 6 hours. Take with food. 60 tablet 0 polyethylene glycol 3350 (MIRALAX, GLYCOLAX) 17 gram/dose powder Take 17 g by mouth once daily. 510 g 4 ondansetron orally disintegrating (ZOFRAN ODT) 4 mg disintegrating tablet Take 1 tablet by mouth every 8 hours as needed for nausea/vomiting. 30 tablet 5 No current facility-administered medications for this visit. REVIEW OF SYSTEMS: GENERAL: Fatigue, fever and (more content not included)...[facility] 05-07-2024 History of Present illness Narrative* Rosalina Hilton APRN.[employer] SERVICE TEAM MEMBER - 05/07/2024 7:03 AM EDT Suha Calix is a 44 year old female here today for a check up on her ER follow up CP Concern(s) today include: Follow up ER Her medications were reviewed today and her list is now up to date. She is compliant on taking her medications :Yes She She is tolerating her medication(s) without side effects: Yes ER Follow Up: Seen [facility] ER 05/02/2024 with complaints left-sided chest pain with movement and deep inspiration Onset pain and symptoms one week Labs reviewed from ER, no concerns Chest XR 05/02/2024: IMPRESSION: . No acute process. EKG 05/02/2024: Impression Sinus bradycardia Possible Left atrial enlargement Borderline ECG No previous ECGs available Seen this office 04/29/2024, completed prednisone and tcontinues antibiotic No reported injury Hx clotting disorder and taking Elquis, no missed dosages Pain currently head congestion, increased nasal drainage, chest hurts ribs hurt from coughing No CP but tightness No reported SOB Fever and chills off and on Has appointment tomorrow see ENT Using Flonase daily Tearful, states I quit my job yesterday with all my health issues reports feeling frustrated Reports with sinuses increased migraines. States feels better since quit job. Denies this is NOT worst headache ever, pain headache 7-8 average Has taken Relpax as needed and dose improve pain partially Has slept very little past 2 days Has not seen Hematology recently Hx anxiety and depression, PHQ positive today and she is tearful, anxious ALLERGIES Allergen Reactions Latex Rash Penicillins Anaphylaxis Tape [Adhesive Tape* Rash Toradol [Ketorolac] Swelling Tongue swelling PAST MEDICAL HISTORY Diagnosis Date Anxiety and depression DVT (deep venous thrombosis) (HCC) GERD (gastroesophageal reflux disease) H/O protein C deficiency H/O protein S deficiency History of DVT (deep vein thrombosis) 10/04/2021 Hypothyroid Malignant melanoma (HCC) Melanoma (HCC) Migraines Other specified hypothyroidism 10/04/2021 PAST SURGICAL HISTORY Procedure Laterality Date SECTION SINGLE 1998 COLONOSCOPY SCREENING 01/16/2023 EGD W/O BRSH SPEC VARICIES INJ 01/16/2023 ESOPHAGOGASTRODUODENOSCOPY TRANSORAL DIAGNOSTIC 03/23/2013 EGD HAND SURGERY HX Left trigger finger release 3 rd finger HYSTEROSCOPY, DIAGNOSTIC (SEPARATE 10/18/2021 IR IVC FILTER PLACEMENT 2010 MALIGNANT MELANOMA - WIDE EXCISION IN ANY AREA AND MUST INCLUDE > 1CM MARGINS & LAYERED CLOSURE TONSILLECTOMY & ADENOIDECTOMY <AGE 12 VAGINAL HYSTERECTOMY 03/08/2022 total FAMILY HISTORY Problem Relation Age of Onset Clotting Disorder Father Protein C and S deficiency No Known Problems Mother Clotting Disorder Paternal Grandfather Anesthesia Problems No Family History Social History Tobacco Use Smoking status: Former Packs/day: 1.00 Years: 22.00 Additional pack years: 0.00 Total pack years: 22.00 Types: Cigarettes Quit date: 03/23/2016 Years since quittin.1 Smokeless tobacco: Never Vaping Use Vaping Use: Never used Substance Use Topics Alcohol use: Not Currently Drug use: Never Current Outpatient Medications Medication Sig Dispense Refill doxycycline hyclate (VIBRAMYCIN) 100 mg capsule Take 1 capsule (100 mg) by mouth two times a day for 10 days. 20 capsule 0 eletriptan (RELPAX) 20 mg tablet Take 1 tablet (20 mg) by mouth as needed for migraine headache (see administration instructions). may repeat in 2 hours if necessary 10 tablet 5 apixaban (ELIQUIS) 5 mg tab(s) Take 5 mg by mouth two times a day. pantoprazole DR (PROTONIX) 40 mg tablet Take 1 tablet by mouth once daily. 90 tablet 1 topiramate (TOPAMAX) 100 mg tablet Take 1 tablet by mouth two times a day. 180 tablet 1 levothyroxine (SYNTHROID) 112 mcg tablet Take 1 tablet by mouth once daily. 90 tablet 0 ergocalciferol 50,000 unit capsule (VITAMIN D2, DRISDOL) Take 1 capsule by mouth one time a week. Use as directed. 12 capsule 1 tiZANidine (ZANAFLEX) 4 mg tablet Take 0.5-1 tablets by mouth three times daily as needed. 270 tablet 1 dicyclomine (BENTYL) 20 mg tablet TAKE ONE TABLET BY MOUTH THREE TIMES A DAY NEEDED FOR ABDOMINAL PAIN 270 tablet 1 fluticasone (FLONASE) 50 mcg/actuation nasal spray USE 1 SPRAY IN EACH NOSTRIL ONCE DAILY 16 mL 1 ibuprofen (MOTRIN) 600 mg tablet Take 1 tablet by mouth every 6 hours. Take with food. 60 tablet 0 polyethylene glycol 3350 (MIRALAX, GLYCOLAX) 17 gram/dose powder Take 17 g by mouth once daily. 510g 4 ondansetron orally disintegrating (ZOFRAN ODT) 4 mg disintegrating tablet Take 1 tablet by mouth every 8 hours as needed for nausea/vomiting. 30 tablet 5 No current facility-administered medications for this visit. REVIEW OF SYSTEMS: GENERAL: Fatigue, fever and chills, weight loss HEENT: Headache, krystyna congestion, ear fullness RESPIRATORY: Negative for cough, shortness of breath CARDIOVASCULAR: Negative for palpitations, reports chest tightness GASTROINTESTINAL: Negative for abdominal discomfort, nausea GENITOURINARY: Negative for dysuria, frequency MUSCULOSKELETAL: Left anterior chest tightness, tenderness NEUROLOGIC: Negative for weakness PSYCHIATRIC: Sleep problems, depression and anxiety BP 102/70 Pulse 79 Ht 165.1 cm (5' 5) Wt 55.2 kg (121 lb 9.6 oz) LMP 03/08/2022 SpO2 100% BMI 20.24 kg/m BMI 20.24 kg/(m^2) PHYSICAL EXAMINATION: General appearance: Cooperative, in no acute distress, alert Skin: Skin color, texture, turgor normal. No rashes or lesions. Head: Normocephalic. Ears: WNL Nose: Thick yellow drainage, facial tenderness Lungs: Good diaphragmatic excursion. Lungs clear to auscultation. Heart: RRR. Normal HS with no murmurs. Musculoskeletal: Muscular strength intact, Torso ROM normal. Left anterior chest moderate tenderness Psychiatric: Tearfulness, anxious Neuro: Gait normal ASSESSMENT/PLAN: 1. Follow-up exam - ICD9: V67.9, ICD10: Z09 (primary diagnosis) Reviewed available records and progress notes See other notes 2. Adjustment disorder with mixed anxiety and depressed mood - ICD9: 309.28, ICD10: F43.23 She is tearful, recently quit her job, reporting a wide variety of symptoms and PHQ positive Start Cymbalta, this may help migraines andreia preston Reviewed potential side effects Back 4 weeks Behavioral Health Screening PHQ-9 Score: (Moderately Severe Depression) Recommendation: medication management - DULOXETINE 30 MG CAPSULE,DELAYED RELEASE - CONSULT TO NEUROLOGY 3. Other migraine without status migrainosus, not intractable - ICD9: 346.80, ICD10: G43.809 See neurology - DULOXETINE 30 MG CAPSULE,DELAYED RELEASE 4. Bacterial sinusitis - ICD9: 473.9, 041.9, ICD10: J32.9, B96.89 - Will begin treatment with as per antibiotic as written, see orders - Has appointment with ENT Burst steroids - CEFDINIR 300 MG CAPSULE - PREDNISONE 20 MG TABLET 5. Myofascial pain syndrome - ICD9: 729.1, ICD10: M79.18 Refill Pain management 6. Chest tightness - ICD9: 786.59, ICD10: R07.89 Atypical chest pain, symptoms are not consistent with cardiac ischemia due to nonexertional nature of symptom and localization of the pain possible etiology include musculoskeletal - TIZANIDINE 4 MG TABLET Rosalina Hilton APRN.DOLORES documented in this encounterPrem[facility]07-[facility]-2024 Telephone encounter Note * Telephone Encounter - Thierry Calero - 05/06/2024 10:45 AM EDT Patient calls today. Reason for Call: She was seen at [facility] ER 05/02/24. She also was seen in office that Monday for the same symptoms and she is not improving and is getting worse. She said she feels like she is in a fog and still having issues with chest pain when breathing in and the medication she was put on has not helped so far. She said they did do xrays. She is scheduled to see Rosalina Hilton tomorrow for her follow up. Thanks [phone] (home) [phone] (cell) Patient last appointment: 04/29/2024 Thierry Calero [facility]07-15-2024 Miscellaneous Notes* Telephone Encounter - Thierry Calero - 05/06/2024 10:45 AM EDT Patient calls today. Reason for Call: She was seen at [facility] ER 05/02/24. She also was seen in office that Monday for the same symptoms and she is not improving and is getting worse. She said she feels like she is in a fog and still having issues with chest pain when breathing in and the medication she was put on has not helped so far. She said they did do xrays. She is scheduled to see Rosalina Hilton tomorrow for her follow up. Thanks [phone] (home) [phone] (cell) Patient last appointment: 04/29/2024 Thierry Calero documented in this encounterPremier Health [facility]07-08-2024 Telephone encounter Note * Telephone Encounter - Mimi José MA - 04/29/2024 4:47 PM EDT Prescription Refill Information The patient has been identified by name and date of : Yes Caregiver verified no other encounters exist for this prescription request: Yes Caregiver confirmed with patient/requestor that no other refills are due, in the near future, with this provider at this time: No The last office visit in the department: 04/02/24 Does the patient have a future office visit with this provider/department: No Requested Prescriptions Pending Prescriptions Disp Refills eletriptan (RELPAX) 20 mg tablet 10 tablet 5 Sig: Take 1 tablet (20 mg) by mouth as needed for migraine headache (see administration instructions). may repeat in 2 hours if necessary Mimi José MA April 29, 2024 4:47 PM [facility]07-08-2024 Miscellaneous Notes* Telephone Encounter - Mimi José MA - 04/29/2024 4:47 PM EDT Prescription Refill Information The patient has been identified by name and date of : Yes Caregiver verified no other encounters exist for this prescription request: Yes Caregiver confirmed with patient/requestor that no other refills are due, in the near future, with this provider at this time: No The last office visit in the department: 04/02/24 Does the patient have a future office visit with this provider/department: No Requested Prescriptions Pending Prescriptions Disp Refills eletriptan (RELPAX) 20 mg tablet 10 tablet 5 Sig: Take 1 tablet (20 mg) by mouth as needed for migraine headache (see administration instructions). may repeat in 2 hours if necessary Mimi José MA April 29, 2024 4:47 PM documented in this encounterPremier Health [facility]07-08-2024 Telephone encounter Note * Telephone Encounter - Laurie Patricio MA - 04/29/2024 4:39 PM EDT Patient notified and had no questions. [facility]07-08-2024 Miscellaneous Notes* Telephone Encounter - Laurie Patricio MA - 04/29/2024 4:39 PM EDT Patient notified and had no questions. * Telephone Encounter - Gretta Izquierdo APRN.CNP - 04/29/2024 4:15 PM EDT Please notify the patient chest xray showed no abnormal findings. documented in this encounterPremier Health [facility]07-08-2024 Telephone encounter Note * Telephone Encounter - Gretta Izquierdo APRN.CNP - 04/29/2024 4:15 PM EDT Please notify the patient chest xray showed no abnormal findings. [facility]07-08-2024 Instructions* Patient Instructions* Gretta Izquierdo APRN.CNP - 04/29/2024 11:58 AM EDT We will call with xray results later today. Start Doxycycline and Prednisone as prescribed, take with food and separate by a few hours. Increase fluids and monitor symptoms including temperature if you are feeling fevered or chilled. Keep appointment with ENT as scheduled. If you are having increased pain, difficulty breathing- seek immediate care in the ER. documented in this encounterPrem[facility] History of Present illness Narrative* Heidy Garrido RT(Adolfo) - 04/29/2024 11:30 AM EDT Radiology Service Progress Note PATIENT NAME: Suha Calix DATE OF SERVICE: April 29, 2024 TIME: 11:49 AM PATIENT IDENTITY VERIFICATION COMPLETED USING TWO (2) IDENTIFIERS: Name and Date of confirmedby patient verbally. FALL SCREENING: Has the patient had 2 falls in the last year or 1 fall with injury or currently using an Ambulatory Assistive Device (Walker, Cane, Wheelchair, Crutches, etc.)? No PATIENT GENDER DATA: Female. status: : No status: NO. PATIENT RELEVANT IMPLANT DATA REVIEWED: Not Applicable PATIENT PRESENTS WITH AN IMPLANTABLE OR ATTACHED CONTRACT ADMINISTRATION MANAGER: No RADIOLOGY DEPARTMENT: General X-ray: Exam(s) Completed: Chest X-Ray PERIPHERAL IV DATA: Not applicable SIGNED BY: GENIA Peterson) April 29, 2024 11:49 AM documented in this encounterPrem[facility] Health [facility]-08-[facility]24 NoteHNO ID: [id number] Author: HEIDY GARRIDO RT(R) Service: ? Author Type: Technologist Type: Progress Notes Filed: 04/29/2024 11:50 Note Text: Radiology Service Progress Note PATIENT NAME: Suha Calix DATE OF SERVICE: April 29, 2024 TIME: 11:49 AM PATIENT IDENTITY VERIFICATION COMPLETED USING TWO (2) IDENTIFIERS: Name and Date of confirmed by patient verbally. FALL SCREENING: Has the patient had 2 falls in the last year or 1 fall with injury or currently using an Ambulatory Assistive Device (Walker, Cane, Wheelchair, Crutches, etc.)? No PATIENT GENDER DATA: Female. status: : No status: NO. PATIENT RELEVANT IMPLANT DATA REVIEWED: Not Applicable PATIENT PRESENTS WITH AN IMPLANTABLE OR ATTACHED CONTRACT ADMINISTRATION MANAGER: No RADIOLOGY DEPARTMENT: General X-ray: Exam(s) Completed: Chest X-Ray PERIPHERAL IV DATA: Not applicable SIGNED BY: GENIA Peterson) April 29, 2024 11:49 AMSt. [facility] [id number] NoteHNO ID: [id number] Author: GRETTA IZQUIERDO APRN.[facility] Service: ? Author Type: Nurse Practitioner Type: Progress Notes Filed: 04/30/2024 11:32 Note Text: April 29, 2024 Subjective Chief Complaint: Sinus Problem (Patient sinuses have been bothering her, She has been dealing with this for a while. She stated he head is full and it hurts to breath. Patient has a ENT on 05/06. ) HPI: Suha Calix is a 44 year old female who presents today for complaints of increased sinus pressure, throbbing pain in face and teeth, drainage and stabbing pain along the left side of chest and in left axilla when taking a deep breath. Pt states she has felt short of breath at times. Pt denies injury to the area and states she has been coughing, not excessively. Pt reports she does have chronic sinus issues and has appt with ENT on 05/06/24. Last antibiotic was in January and treated with prednisone one month ago. Pt reports she does use Mucinex and Zyrted D and flonase on daily basis. PAST MEDICAL HISTORY Diagnosis Date Anxiety and depression DVT (deep venous thrombosis) (HCC) GERD (gastroesophageal reflux disease) H/O protein C deficiency H/O protein S deficiency History of DVT (deep vein thrombosis) 10/04/2021 Hypothyroid Malignant melanoma (HCC) Melanoma (HCC) Migraines Other specified hypothyroidism 10/04/2021 PAST SURGICAL HISTORY Procedure Laterality Date SECTION SINGLE 1998 COLONOSCOPY SCREENING 01/16/2023 EGD W/O BRSH SPEC VARICIES INJ 01/16/2023 ESOPHAGOGASTRODUODENOSCOPY TRANSORAL DIAGNOSTIC 03/23/2013 EGD HAND SURGERY HX Left trigger finger release 3 rd finger HYSTEROSCOPY, DIAGNOSTIC (SEPARATE 10/18/2021 IR IVC FILTER PLACEMENT 2010 MALIGNANT MELANOMA - WIDE EXCISION IN ANY AREA AND MUST INCLUDE > 1CM MARGINS AND LAYERED CLOSURE TONSILLECTOMY AND ADENOIDECTOMY VAGINAL HYSTERECTOMY 03/08/2022 total FAMILY HISTORY Problem Relation Age of Onset Clotting Disorder Father Protein C and S deficiency No Known Problems Mother Clotting Disorder Paternal Grandfather Anesthesia Problems No Family History Social History Tobacco Use Smoking status: Former Packs/day: 1.00 Years: 22.00 Additional pack years: 0.00 Total pack years: 22.00 Types: Cigarettes Quit date: 03/23/2016 Years since quittin.1 Smokeless tobacco: Never Vaping Use Vaping Use: Never used Substance Use Topics Alcohol use: Not Currently Drug use: Never ALLERGIES Allergen Reactions Latex Rash Penicillins Anaphylaxis Tape [Adhesive Tape* Rash Toradol [Ketorolac] Swelling Tongue swelling Immunization History Administered Date(s) Administered COVID-19 original vaccine, full dose, monovalent (MODERNA) 10/22/2020 11/20/2020 09/01/2021 COVID-19 vaccine, age 12+ yr, bivalent (MODERNA) 08/31/2022 influenza (IIV3) vaccine, age 3+ yr, trivalent (AFLURIA, FLULAVAL, FLUVIRIN, FLUZONE) 07/28/2020 08/06/2020 influenza (IIV4) vaccine, age 6 mo - 64 yr, quadrivalent (AFLURIA, FLULAVAL, FLUZONE) 09/22/2021 influenza (IIV4) vaccine, age 6 mo - 64 yr, quadrivalent, PF (AFLURIA, FLUARIX, FLULAVAL, FLUZONE) 09/22/2021 tuberculin skin test (TST-PPD), purified protein derivative, intradermal 04/23/2021 04/20/2022 Current Medications: apixaban (ELIQUIS) 5 mg tab(s) Take 5 mg by mouth two times a day. pantoprazole DR (PROTONIX) 40 mg tablet Take 1 tablet by mouth once daily. topiramate (TOPAMAX) 100 mg tablet Take 1 tablet by mouth two times a day. levothyroxine (SYNTHROID) 112 mcg tablet Take 1 tablet by mouth once daily. ergocalciferol 50,000 unit capsule (VITAMIN D2, DRISDOL) Take 1 capsule by mouth one time a week. Use as directed. tiZANidine (ZANAFLEX) 4 mg tablet Take 0.5-1 tablets by mouth three times daily as needed. dicyclomine (BENTYL) 20 mg tablet TAKE ONE TABLET BY MOUTH THREE TIMES A DAY NEEDED FOR ABDOMINAL PAIN eletriptan (RELPAX) 20 mg tablet Take 1 tablet by mouth as needed for migraine headache (see administration instructions). may repeat in 2 hours if necessary BIOTIN ORAL Take 1 capsule by mouth once daily. fluticasone (FLONASE) 50 mcg/actuation nasal spray USE 1 SPRAY IN EACH NOSTRIL ONCE DAILY ibuprofen (MOTRIN) 600 mg tablet Take 1 tablet by mouth every 6 hours. Take with food. polyethylene glycol 3350 (MIRALAX, GLYCOLAX) 17 gram/dose powder Take 17 g by mouth once daily. ondansetron orally disintegrating (ZOFRAN ODT) 4 mg disintegrating tablet Take 1 tablet by mouth every 8 hours as needed for nausea/vomiting. predniSONE (DELTASONE) 20 mg tablet Take 1 tablet by mouth two times a day. (Patient not taking: Reported on 04/29/2024) Review of Systems Constitutional: Positive for chills and malaise/fatigue. Negative for fever. HENT: Positive for congestion, ear pain and sinus pain. Negative for nosebleeds and sore throat. Respiratory: Positive for cough, shortness of breath (at times) and wheezing (at times). Card (more content not included)...[facility] [id number] History of Present illness Narrative* Gretta Izquierdo APRN.PREPARED [employer] SERVICE TEAM MEMBER - 04/29/2024 11:11 AM EDT April 29, 2024 Subjective Chief Complaint: Sinus Problem (Patient sinuses have been bothering her, She has been dealing with this for a while. She stated he head is full and it hurts to breath. Patient has a ENT on 05/06. ) HPI: Suha Calix is a 44 year old female who presents today for complaints of increased sinus pressure, throbbing pain in face and teeth, drainage and stabbing pain along the left side of chest and in left axilla when taking a deep breath. Pt states she has felt short of breath at times. Pt denies injury to the area and states she has been coughing, not excessively. Pt reports she does have chronic sinus issues and has appt with ENT on 05/06/24. Last antibiotic wasin January and treated with prednisone one month ago. Pt reports she does use Mucinex and Zyrted D and flonase on daily basis. PAST MEDICAL HISTORY Diagnosis Date Anxiety and depression DVT (deep venous thrombosis) (HCC) GERD (gastroesophageal reflux disease) H/O protein C deficiency H/O protein S deficiency History of DVT (deep vein thrombosis) 10/04/2021 Hypothyroid Malignant melanoma (HCC) Melanoma (HCC) Migraines Other specified hypothyroidism 10/04/2021 PAST SURGICAL HISTORY Procedure Laterality Date SECTION SINGLE 1997 COLONOSCOPY SCREENING 01/16/2023 EGD W/O BRSH SPEC VARICIES INJ 01/16/2023 ESOPHAGOGASTRODUODENOSCOPY TRANSORAL DIAGNOSTIC 03/23/2013 EGD HAND SURGERY HX Left trigger finger release 3 rd finger HYSTEROSCOPY, DIAGNOSTIC (SEPARATE 10/18/2021 IR IVC FILTER PLACEMENT 2010 MALIGNANT MELANOMA - WIDE EXCISION IN ANY AREA AND MUST INCLUDE > 1CM MARGINS & LAYERED CLOSURE TONSILLECTOMY & ADENOIDECTOMY <AGE 12 VAGINAL HYSTERECTOMY 03/08/2022 total FAMILY HISTORY Problem Relation Age of Onset Clotting Disorder Father Protein C and S deficiency No Known Problems Mother Clotting Disorder Paternal Grandfather Anesthesia Problems No Family History Social History Tobacco Use Smoking status: Former Packs/day: 1.00 Years: 22.00 Additional pack years: 0.00 Total pack years: 22.00 Types: Cigarettes Quit date: 03/23/2016 Years since quittin.1 Smokeless tobacco: Never Vaping Use Vaping Use: Never used Substance Use Topics Alcohol use: Not Currently Drug use: Never ALLERGIES Allergen Reactions Latex Rash Penicillins Anaphylaxis Tape [Adhesive Tape* Rash Toradol [Ketorolac] Swelling Tongue swelling Immunization History Administered Date(s) Administered COVID-19 original vaccine, full dose, monovalent (MODERNA) 10/22/2020 11/20/2020 09/01/2021 COVID-19 vaccine, age 12+ yr, bivalent (MODERNA) 08/31/2022 influenza (IIV3) vaccine, age 3+ yr, trivalent (AFLURIA, FLULAVAL, FLUVIRIN, FLUZONE) 07/28/2020 08/06/2020 influenza (IIV4) vaccine, age 6 mo - 64 yr, quadrivalent (AFLURIA, FLULAVAL, FLUZONE) 09/22/2021 influenza (IIV4) vaccine, age 6 mo - 64 yr, quadrivalent, PF (AFLURIA, FLUARIX, FLULAVAL, FLUZONE) 09/22/2021 tuberculin skin test (TST-PPD), purified protein derivative, intradermal 04/23/2021 04/20/2022 Current Medications: apixaban (ELIQUIS) 5 mg tab(s) Take 5 mg by mouth two times a day. pantoprazole DR (PROTONIX) 40 mg tablet Take 1 tablet by mouth once daily. topiramate (TOPAMAX) 100 mg tablet Take 1 tablet by mouth two times a day. levothyroxine (SYNTHROID) 112 mcg tablet Take 1 tablet by mouth once daily. ergocalciferol 50,000 unit capsule (VITAMIN D2, DRISDOL) Take 1 capsule by mouth one time a week. Use as directed. tiZANidine (ZANAFLEX) 4 mg tablet Take 0.5-1 tablets by mouth three times daily as needed. dicyclomine (BENTYL) 20 mg tablet TAKE ONE TABLET BY MOUTH THREE TIMES A DAY NEEDED FOR ABDOMINAL PAIN eletriptan (RELPAX) 20 mg tablet Take 1 tablet by mouth as needed for migraine headache (see administration instructions). may repeat in 2 hours if necessary BIOTIN ORAL Take 1 capsule by mouth once daily. fluticasone (FLONASE) 50 mcg/actuation nasal spray USE 1 SPRAY IN EACH NOSTRIL ONCE DAILY ibuprofen (MOTRIN) 600 mg tablet Take 1 tablet by mouth every 6 hours. Take with food. polyethylene glycol 3350 (MIRALAX, GLYCOLAX) 17 gram/dose powder Take 17 g by mouth once daily. ondansetron orally disintegrating (ZOFRAN ODT) 4 mg disintegrating tablet Take 1 tablet by mouth every 8 hours as needed for nausea/vomiting. predniSONE (DELTASONE) 20 mg tablet Take 1 tablet by mouth two times a day. (Patient not taking: Reported on 04/29/2024) Review of Systems Constitutional: Positive for chills and malaise/fatigue. Negative for fever. HENT: Positive for congestion, ear pain and sinus pain. Negative for nosebleeds and sore throat. Respiratory: Positive for cough, shortness of breath (at times) and wheezing (at times). Cardiovascular: Positive for chest pain (on inspiration as per hpi). Negative for palpitations and leg swelling. Gastrointestinal: Positive for nausea (from sinus drainage). Negative for diarrhea and vomiting. Skin: Negative for rash. Neurological: Positive for headaches. Negative for dizziness. Objective BP 114/72 Pulse 72 Temp (Src) 98.3 (Oral) Resp 18 Wt 121 lb (54.9kg) SpO2 100% LMP 03/08/2022 Physical Exam Vitals and nursing note reviewed. Constitutional: General: She is not in acute distress. Appearance: Normal appearance. She is not ill-appearing or toxic-appearing. Comments: Looks fatigued, thin. No acute distress HENT: Head: Normocephalic and atraumatic. Ears: Comments: Tms fluid filled, dull, no redness Nose: Comments: Nasal mucosa red with clear/yellow mucus Mouth/Throat: Mouth: Mucous membranes are moist. Pharynx: Oropharynx is clear. Posterior oropharyngeal erythema (post nasal drainage) present. No oropharyngeal exudate. Cardiovascular: Rate and Rhythm: Normal rate and regular rhythm. Heart sounds: Normal heart sounds. Pulmonary: Effort: Pulmonary effort is normal. No respiratory distress. Breath sounds: Normal breath sounds. No wheezing, rhonchi or rales. Comments: Lungs clear and diminished. Pt reports pain in the left side of chest, under breast along rib cage and into the left axilla with inspiration. Chest xray obtained. Appears normal Chest: Chest wall: Tenderness present. Abdominal: Tenderness: There is abdominal tenderness. There is rebound. Musculoskeletal: Cervical back: Normal range of motion and neck supple. Tenderness present. Lymphadenopathy: Cervical: No cervical adenopathy. Skin: General: Skin is warm and dry. Neurological: General: No focal deficit present. Mental Status: She is alert and oriented to person, place, and time. Psychiatric: Mood and Affect: Mood normal. Behavior: Behavior normal. Thought Content: Thought content normal. ASSESSMENT/PLAN: 1. Chest pain on respiration - ICD9: 786.52, ICD10: R07.1 (primary diagnosis) - XR CHEST 2V FRONTAL/LAT - PREDNISONE 20 MG TABLET 2. Sinusitis, unspecified chronicity, unspecified location - ICD9: 473.9, ICD10: J32.9 - Will begin treatment with as per antibiotic as written, see orders - Supportive care with plenty of fluids, rest, and analgesia prn. - DOXYCYCLINE HYCLATE 100 MG CAPSULE - PREDNISONE 20 MG TABLET We will call with xray results later today. Start Doxycycline and Prednisone as prescribed, take with food and separate by a few hours. Increase fluids and monitor symptoms including temperature if you are feeling fevered or chilled. Keep appointment with ENT as scheduled. If you are having increased pain, difficulty breathing- seek immediate care in the ER. Dee Dee Matthews APRN.[employer] SERVICE TEAM MEMBER The above reflects my independent exam and review of the patient's medical record. I saw and examined the patient myself personally. Parts of the HPI, ROS, exam, impression/plan, and testing results may have been copied from the current or previous clinical notes and remain pertinent to today's visit. Current changes have been made and documented today. Other parts or data may have been deleted if not relevant for today. Plan as outlined above. Patient advised if symptoms do not improve or if symptoms worsen sooner, to contact their primary care physician. Potential red flag symptoms discussed with the patient. Reviewed appropriate action plan to take if red flag symptoms occur. Patient agreeable to treatment plan. Portions of this note have been entered by ancillary staff. I have reviewed and when necessary edited, so that they are an adequate record of my encounter with this patient. documented [facility] Telephone encounter Note * Telephone Encounter - Libby Harrison MA - 04/03/2024 10:51 AM EDT Mailbox is full unable to leave message. Signing normal encounter [facility]06-12-[facility]24 Telephone encounter Note* Telephone Encounter - Libby Harrison MA - 04/03/2024 10:51 AM EDT ----- Message from Rosalina Hilton APRN.PREPARED [employer] SERVICE TEAM MEMBER sent at 04/03/2024 8:25 AM EDT ----- TSH and iron studies normal results [facility]06-12-2024 Miscellaneous Notes* Telephone Encounter - Libby Harrison MA - 04/03/2024 10:51 AM EDT Mailbox is full unable to leave message. Signing normal encounter * Telephone Encounter - Libby Harrison MA - 04/03/2024 10:51 AM EDT ----- Message from Rosalina Hilton APRN.PREPARED [employer] SERVICE TEAM MEMBER sent at 04/03/2024 8:25 AM EDT ----- TSH and iron studies normal results documented in this encounterPrem[facility]06-11-2024 NoteHNO ID: [id number] Author: LEVI CARLTON PA-C Service: ? Author Type: Physician Toggle Press Operator Type: Progress Notes Filed: 04/02/2024 15:42 Note Text: Suha Calix is a 44 year old female here today acutely because of having: Headache (Patient presents for headaches and sinus pressure. Patient states this has been going on since September off and on. Patient takes ibuprofen and mucinex and sudafed. She feels like she has fluid in her ears. ) Patient presents to the clinic today with complaints of sinus pain and pressure. Has chronic sinus issues, but has had more issues since September. States she has had increased sinus pressure, pain, ear pain, rhinorrhea. Was seen in January at walk in clinic for the same issue. Started on doxycycline, which helped for a few weeks but symptoms returned shortly after. No fevers, chills Review of Systems Constitutional: Negative for chills, fatigue and fever. HENT: Positive for rhinorrhea, sinus pressure, sinus pain and sore throat. Negative for congestion. Eyes: Negative. Respiratory: Negative. Cardiovascular: Negative. Gastrointestinal: Negative for diarrhea, nausea and vomiting. Endocrine: Negative. Genitourinary: Negative. Musculoskeletal: Negative. Skin: Negative. Allergic/Immunologic: Negative. Neurological: Positive for headaches. Negative for dizziness, light-headedness and numbness. Hematological: Negative. Psychiatric/Behavioral: Negative. BP 117/73 (BP Site: Left Arm, BP Position: Sitting, BP Cuff Size: Regular Adult) Pulse 70 Temp 36.8 ?C (98.3 ?F) (Oral) Resp 16 Ht 165.1 cm (5' 5) Wt 58.4 kg (128 lb 12.8 oz) LMP 03/08/2022 SpO2 99% BMI 21.43 kg/m? BMI 21.43 kg/(m2) ALLERGIES Allergen Reactions Latex Rash Penicillins Anaphylaxis Tape [Adhesive Tape* Rash Toradol [Ketorolac] Swelling Tongue swelling Physical Exam Constitutional: Appearance: Normal appearance. She is normal weight. HENT: Head: Normocephalic and atraumatic. Right Ear: External ear normal. Left Ear: External ear normal. Nose: Nose normal. Mouth/Throat: Mouth: Mucous membranes are moist. Pharynx: Oropharynx is clear. Eyes: Extraocular Movements: Extraocular movements intact. Conjunctiva/sclera: Conjunctivae normal. Pupils: Pupils are equal, round, and reactive to light. Cardiovascular: Rate and Rhythm: Normal rate and regular rhythm. Pulses: Normal pulses. Heart sounds: Normal heart sounds. Pulmonary: Effort: Pulmonary effort is normal. Breath sounds: Normal breath sounds. Abdominal: General: Abdomen is flat. Palpations: Abdomen is soft. Skin: General: Skin is warm and dry. Neurological: General: No focal deficit present. Mental Status: She is alert and oriented to person, place, and time. Mental status is at baseline. Psychiatric: Mood and Affect: Mood normal. Behavior: Behavior normal. Thought Content: Thought content normal. Judgment: Judgment normal. ASSESSMENT/PLAN: 1. Chronic rhinosinusitis - ICD9: 472.0, 473.9, ICD10: J32.9 (primary diagnosis) - Due to duration of sinus issues, patient may benefit from seeing ENT. Will call if symptoms not improving by the end of the week, may consider antibiotic at that time - CONSULT TO ENT 2. Encounter for behavioral health screening - ICD9: V82.89, ICD10: Z13.30 - BEHAVIORAL HEALTH SCREENING Behavioral Health Screening PHQ-9 Score: 14 (Moderate Depression) ANJU-7 Score: 14 (Moderate Anxiety) Recommendation: continuing current treatment plan 3. Eustachian tube dysfunction, bilateral - ICD9: 381.81, ICD10: H69.93 - PREDNISONE 20 MG TABLET 4. History of anemia - ICD9: V12.3, ICD10: Z86.2 - IRON AND TIBC - FERRITIN 5. Hypothyroidism, unspecified type - ICD9: 244.9, ICD10: E03.9 - Instructed patient on importance of taking on an empty stomach either first thing in the morning or at bedtime. - THYROID STIMULATING HORMONE Levi Carlton PA-C Follow Up: Return if symptoms worsen or fail to improve. Prescription instructions reviewed with patient as applicable. Patient advised if symptoms do not improve or if symptoms worsen sooner, to contact their primary care physician. Potential red flag symptoms discussed with the patient. Reviewed appropriate action plan to take if red flag symptoms occur. Patient agreeable to treatment plan. Voice recognition software utilized. Minor grammatical and/or spelling errors may exist. Portions of this note have been entered by ancillary staff. I have reviewed and when necessary edited, so that they are an adequate record of my encounter with this patient.[facility] [id number] History of Present illness Narrative* Levi Carlton PA-C - 04/02/2024 2:44 PM EDT Suha Calix is a 44 year old female here today acutely because of having: Headache (Patient presents for headaches and sinus pressure. Patient states this has been going on since September off and on. Patient takes ibuprofen and mucinex and sudafed. She feels like she has fluid in her ears. ) Patient presents to the clinic today with complaints of sinus pain and pressure. Has chronic sinus issues, but has had more issues since September. States she has had increased sinus pressure, pain, ear pain, rhinorrhea. Was seen in January at walk in clinic for the same issue. Started on doxycycline,which helped for a few weeks but symptoms returned shortly after. No fevers, chills Review of Systems Constitutional: Negative for chills, fatigue and fever. HENT: Positive for rhinorrhea, sinus pressure, sinus pain and sore throat. Negative for congestion. Eyes: Negative. Respiratory: Negative. Cardiovascular: Negative. Gastrointestinal: Negative for diarrhea, nausea and vomiting. Endocrine: Negative. Genitourinary: Negative. Musculoskeletal: Negative. Skin: Negative. Allergic/Immunologic: Negative. Neurological: Positive for headaches. Negative for dizziness, light-headedness and numbness. Hematological: Negative. Psychiatric/Behavioral: Negative. BP 117/73 (BP Site: Left Arm, BP Position: Sitting, BP Cuff Size: Regular Adult) Pulse 70 Temp 36.8 C (98.3 F) (Oral) Resp 16 Ht 165.1 cm (5' 5) Wt 58.4 kg (128 lb 12.8 oz) LMP 03/08/2022 SpO2 99% BMI 21.43 kg/m BMI 21.43 kg/(m^2) ALLERGIES Allergen Reactions Latex Rash Penicillins Anaphylaxis Tape [Adhesive Tape* Rash Toradol [Ketorolac] Swelling Tongue swelling Physical Exam Constitutional: Appearance: Normal appearance. She is normal weight. HENT: Head: Normocephalic and atraumatic. Right Ear: External ear normal. Left Ear: External ear normal. Nose: Nose normal. Mouth/Throat: Mouth: Mucous membranes are moist. Pharynx: Oropharynx is clear. Eyes: Extraocular Movements: Extraocular movements intact. Conjunctiva/sclera: Conjunctivae normal. Pupils: Pupils are equal, round, and reactive to light. Cardiovascular: Rate and Rhythm: Normal rate and regular rhythm. Pulses: Normal pulses. Heart sounds: Normal heart sounds. Pulmonary: Effort: Pulmonary effort is normal. Breath sounds: Normal breath sounds. Abdominal: General: Abdomen is flat. Palpations: Abdomen is soft. Skin: General: Skin is warm and dry. Neurological: General: No focal deficit present. Mental Status: She is alert and oriented to person, place, and time. Mental status is at baseline. Psychiatric: Mood and Affect: Mood normal. Behavior: Behavior normal. Thought Content: Thought content normal. Judgment: Judgment normal. ASSESSMENT/PLAN: 1. Chronic rhinosinusitis - ICD9: 472.0, 473.9, ICD10: J32.9 (primary diagnosis) - Due to duration of sinus issues, patient may benefit from seeing ENT. Will call if symptoms not improving by the end of the week, may consider antibiotic at that time - CONSULT TO ENT 2. Encounter for behavioral health screening - ICD9: V82.89, ICD10: Z13.30 - BEHAVIORAL HEALTH SCREENING Behavioral Health Screening PHQ-9 Score: 14 (Moderate Depression) ANJU-7 Score: 14 (Moderate Anxiety) Recommendation: continuing current treatment plan 3. Eustachian tube dysfunction, bilateral - ICD9: 381.81, ICD10: H69.93 - PREDNISONE 20 MG TABLET 4. History of anemia - ICD9: V12.3, ICD10: Z86.2 - IRON AND TIBC - FERRITIN 5. Hypothyroidism, unspecified type - ICD9: 244.9, ICD10: E03.9 - Instructed patient on importance of taking on an empty stomach either first thing in the morning or at bedtime. - THYROID STIMULATING HORMONE Levi Carlton PA-C Follow Up: Return if symptoms worsen or fail to improve. Prescription instructions reviewed with patient as applicable. Patient advised if symptoms do not improve or if symptoms worsen sooner, to contact their primary care physician. Potential red flag symptoms discussed with the patient. Reviewed appropriate action plan to take if red flag symptoms occur. Patient agreeable to treatment plan. Voice recognition software utilized. Minor grammatical and/or spelling errors may exist. Portions of this note have been entered by ancillary staff. I have reviewed and when necessary edited, so that they are an adequate record of my encounter with this patient. [facility] Telephone encounter Note * Telephone Encounter - Xi De La Cruz MA - 03/27/2024 8:35 AM EDT Pt informed of message. No questions at this time. [facility]06[facility] Miscellaneous Notes* Telephone Encounter - Xi De La Cruz MA - 03/27/2024 8:35 AM EDT Pt informed of message. No questions at this time. * Telephone Encounter - Gris Weaver APRN.CNP - 03/27/2024 7:51 AM EDT Please call the patient and let them know that a refill is being sent but they need to schedule a wellness visit. Thanks, Gris Weaver APRN.DOLORES * Telephone Encounter - Alysa Shah MA - 03/27/2024 7:48 AM EDT Patient calls requesting refill: Requested Prescriptions Pending Prescriptions Disp Refills pantoprazole DR (PROTONIX) 40 mg tablet 90 tablet 1 Sig: Take 1 tablet by mouth once daily. topiramate (TOPAMAX) 100 mg tablet 180 tablet 1 Sig: Take 1 tablet by mouth two times a day. Date of last visit:05/19/2023 Phone #: [phone] (home) [phone] (cell) The patients preferred pharmacy has been captured for this encounter? yes documented in this encounterPrem[facility] Telephone encounter Note * Telephone Encounter - Gris Weaver APRN.CNP - 03/27/2024 7:51 AM EDT Please call the patient and let them know that a refill is being sent but they need to schedule a wellness visit. Thanks, Gris Weaver APRN.PREPARED FOODS SERVICE TEAM MEMBER [facility]06-05-2024 Telephone encounter Note* Telephone Encounter - Alysa Shah MA - 03/27/2024 7:48 AM EDT Patient calls requesting refill: Requested Prescriptions Pending Prescriptions Disp Refills pantoprazole DR (PROTONIX) 40 mg tablet 90 tablet 1 Sig: Take 1 tablet by mouth once daily. topiramate (TOPAMAX) 100 mg tablet 180 tablet 1 Sig: Take 1 tablet by mouth two times a day. Date of last visit:05/19/2023 Phone #: [phone] (home) [phone] (cell) The patients preferred pharmacy has been captured for this encounter? yes [facility]04-29[facility] Telephone encounter Note* Telephone Encounter - Mimi José MA - 02/19/2024 3:45 PM EDT Pharmacy faxes requesting refill: Requested Prescriptions Pending Prescriptions Disp Refills levothyroxine (SYNTHROID) 112 mcg tablet 90 tablet 0 Sig: Take 1 tablet by mouth once daily. Date of last visit:05/19/23 Phone #: [phone] (home) [phone] (cell) The patients preferred pharmacy has been captured for this encounter? Yes Mimi José MA [facility]04-29-2024 Miscellaneous Notes* Telephone Encounter - Mimi José MA - 02/19/2024 3:45 PM EDT Pharmacy faxes requesting refill: Requested Prescriptions Pending Prescriptions Disp Refills levothyroxine (SYNTHROID) 112 mcg tablet 90 tablet 0 Sig: Take 1 tablet by mouth once daily. Date of last visit:05/19/23 Phone #: [phone] (home) [phone] (cell) The patients preferred pharmacy has been captured for this encounter? Yes Mimi José MA documented in this encounterPrem[facility]04-16-2024 NoteHNO ID: [id number] Author: RAYMOND CARDENAS APRN.PREPARED [employer]ODS SERVICE TEAM MEMBER Service: ? Author Type: Nurse Practitioner Type: Progress Notes Filed: 02/06/2024 09:07 Note Text: Suha Calix is a 43 year old female here today acutely because of having: Headache, Ear Pain, face pain, nasal congestion and Neck Pain Patient has symptoms of nasal congestion, face pain, ear pain, headache, ear pain and post nasal drainage. Symptoms on going for 2 weeks with headache starting 2 days ago. Patient has tried mucinex. Exposed to anyone with similar illness, no. Patient is not a smoker. Denies fever, SOB, chest pain, dizziness, nausea, vomiting, diarrhea. Headache Pertinent negatives include no fever, no palpitations, no shortness of breath, no nausea and no vomiting. Ear Pain Associated symptoms include congestion, fatigue, headaches and neck pain. Pertinent negatives include no abdominal pain, chest pain, chills, coughing, fever, nausea, rash, sore throat or vomiting. Neck Pain Associated symptoms include headaches. Pertinent negatives include no chest pain or fever. Review of Systems Constitutional: Positive for fatigue. Negative for chills and fever. HENT: Positive for congestion, ear pain, postnasal drip, rhinorrhea and sinus pain. Negative for sore throat. Respiratory: Negative for cough, chest tightness, shortness of breath and wheezing. Cardiovascular: Negative for chest pain, palpitations and leg swelling. Gastrointestinal: Negative for abdominal pain, diarrhea, nausea and vomiting. Musculoskeletal: Positive for neck pain. Skin: Negative for color change and rash. Neurological: Positive for headaches. Negative for dizziness. BP 94/67 (BP Site: Left Arm, BP Position: Sitting, BP Cuff Size: Regular Adult) Pulse 99 Temp 37.1 ?C (98.8 ?F) (Oral) Resp 20 Wt 55.3 kg (122 lb) LMP 03/08/2022 SpO2 100% BMI 20.30 kg/m? BMI 20.30 kg/(m2) ALLERGIES Allergen Reactions Latex Rash Penicillins Anaphylaxis Tape [Adhesive Tape* Rash Toradol [Ketorolac] Swelling Tongue swelling Physical Exam Vitals reviewed. Constitutional: Appearance: She is ill-appearing. HENT: Right Ear: External ear normal. Tympanic membrane is bulging. Left Ear: External ear normal. Tympanic membrane is bulging. Ears: Comments: Erythremic ear canals Nose: Congestion and rhinorrhea present. Right Sinus: Maxillary sinus tenderness and frontal sinus tenderness present. Left Sinus: Maxillary sinus tenderness and frontal sinus tenderness present. Mouth/Throat: Mouth: Mucous membranes are moist. Pharynx: No posterior oropharyngeal erythema. Comments: Yellow post nasal drainage Cardiovascular: Rate and Rhythm: Normal rate and regular rhythm. Heart sounds: Normal heart sounds. No murmur heard. Pulmonary: Effort: Pulmonary effort is normal. No respiratory distress. Breath sounds: Normal breath sounds. No wheezing. Skin: General: Skin is warm and dry. Neurological: Mental Status: She is alert and oriented to person, place, and time. ASSESSMENT/PLAN: 1. Bacterial sinusitis - ICD9: 473.9, 041.9, ICD10: J32.9, B96.89 - Will begin treatment with as per antibiotic as written, see orders - Supportive care with plenty of fluids, rest, and analgesia prn. - Use butterscotch candy to help decrease the cough. - Take Robitussin CF or Tussin CF for congestion and cough - Cool mist vaporizer at bedside to decrease the cough. - Get plenty of rest and fluids - Tylenol/ibuprofen for fever/pain. - DOXYCYCLINE HYCLATE 100 MG CAPSULE - PREDNISONE 20 MG TABLET Raymond Cardenas PREPARED FO[employer]S SERVICE TEAM MEMBER Follow Up: Return if symptoms worsen or fail to improve. Prescription instructions reviewed with patient as applicable. Patient advised if symptoms do not improve or if symptoms worsen sooner, to contact their primary care physician. Potential red flag symptoms discussed with the patient. Reviewed appropriate action plan to take if red flag symptoms occur. Patient agreeable to treatment plan. Voice recognition software utilized. Minor grammatical and/or spelling errors may exist. Portions of this note have been entered by ancillary staff. I have reviewed and when necessary edited, so that they are an adequate record of my encounter with this patient.[facility] [id number] History of Present illness Narrative* Raymond Cardenas, DATA SCIENCE AND IOT MANAGER.PREPARED FOODS SERVICE TEAM MEMBER - 02/06/2024 9:04 AM EDT Suha Calix is a 43 year old female here today acutely because of having: Headache, Ear Pain, face pain, nasal congestion and Neck Pain Patient has symptoms of nasal congestion, face pain, ear pain, headache, ear pain and post nasal drainage. Symptoms on going for 2 weeks with headache starting 2 days ago. Patient has tried mucinex. Exposed to anyone with similar illness, no. Patient is not a smoker. Denies fever, SOB, chest pain, dizziness, nausea, vomiting, diarrhea. Headache Pertinent negatives include no fever, no palpitations, no shortness of breath, no nausea and no vomiting. Ear Pain Associated symptoms include congestion, fatigue, headaches and neck pain. Pertinent negatives include no abdominal pain, chest pain, chills, coughing, fever, nausea, rash, sore throat or vomiting. Neck Pain Associated symptoms include headaches. Pertinent negatives include no chest pain or fever. Review of Systems Constitutional: Positive for fatigue. Negative for chills and fever. HENT: Positive for congestion, ear pain, postnasal drip, rhinorrhea and sinus pain. Negative for sore throat. Respiratory: Negative for cough, chest tightness, shortness of breath and wheezing. Cardiovascular: Negative for chest pain, palpitations and leg swelling. Gastrointestinal: Negative for abdominal pain, diarrhea, nausea and vomiting. Musculoskeletal: Positive for neck pain. Skin: Negative for color change and rash. Neurological: Positive for headaches. Negative for dizziness. BP 94/67 (BP Site: Left Arm, BP Position: Sitting, BP Cuff Size: Regular Adult) Pulse 99 Temp 37.1 C (98.8 F) (Oral) Resp 20 Wt 55.3 kg (122 lb) LMP 03/08/2022 SpO2 100% BMI 20.30 kg/m BMI 20.30 kg/(m^2) ALLERGIES Allergen Reactions Latex Rash Penicillins Anaphylaxis Tape [Adhesive Tape* Rash Toradol [Ketorolac] Swelling Tongue swelling Physical Exam Vitals reviewed. Constitutional: Appearance: She is ill-appearing. HENT: Right Ear: External ear normal. Tympanic membrane is bulging. Left Ear: External ear normal. Tympanic membrane is bulging. Ears: Comments: Erythremic ear canals Nose: Congestion and rhinorrhea present. Right Sinus: Maxillary sinus tenderness and frontal sinus tenderness present. Left Sinus: Maxillary sinus tenderness and frontal sinus tenderness present. Mouth/Throat: Mouth: Mucous membranes are moist. Pharynx: No posterior oropharyngeal erythema. Comments: Yellow post nasal drainage Cardiovascular: Rate and Rhythm: Normal rate and regular rhythm. Heart sounds: Normal heart sounds. No murmur heard. Pulmonary: Effort: Pulmonary effort is normal. No respiratory distress. Breath sounds: Normal breath sounds. No wheezing. Skin: General: Skin is warm and dry. Neurological: Mental Status: She is alert and oriented to person, place, and time. ASSESSMENT/PLAN: 1. Bacterial sinusitis - ICD9: 473.9, 041.9, ICD10: J32.9, B96.89 - Will begin treatment with as per antibiotic as written, see orders - Supportive care with plenty of fluids, rest, and analgesia prn. - Use butterscotch candy to help decrease the cough. - Take Robitussin CF or Tussin CF for congestion and cough - Cool mist vaporizer at bedside to decrease the cough. - Get plenty of rest and fluids - Tylenol/ibuprofen for fever/pain. - DOXYCYCLINE HYCLATE 100 MG CAPSULE - PREDNISONE 20 MG TABLET Raymond Cardenas CNP Follow Up: Return if symptoms worsen or fail to improve. Prescription instructions reviewed with patient as applicable. Patient advised if symptoms do not improve or if symptoms worsen sooner, to contact their primary care physician. Potential red flag symptoms discussed with the patient. Reviewed appropriate action plan to take if red flag symptoms occur. Patient agreeable to treatment plan. Voice recognition software utilized. Minor grammatical and/or spelling errors may exist. Portions of this note have been entered by ancillary staff. I have reviewed and when necessary edited, so that they are an adequate record of my encounter with this patient. documented in this encounterPrem[facility]04[facility] Instructions* Patient Instructions* Raymond Cardenas APRN.CNP - 02/06/2024 9:04 AM EDT - Use butterscotch candy to help decrease the cough. - Take Robitussin CF or Tussin CF for congestion and cough - Cool mist vaporizer at bedside to decrease the cough. - Get plenty of rest and fluids - Tylenol/ibuprofen for fever/pain. documented in this encounterPrem[facility]11[facility]23 Miscellaneous Notes* Telephone Encounter - Mimi José MA - 09/13/2023 10:08 AM EST Pharmacy faxes requesting refill: Requested Prescriptions Pending Prescriptions Disp Refills ELIQUIS 5 mg tab(s) Sig: Take 1 tablet by mouth two times a day. pantoprazole DR (PROTONIX) 40 mg tablet 90 tablet 1 Sig: Take 1 tablet by mouth once daily. Date of last visit:08/30/2023 Phone #: [phone] (home) [phone] (cell) The patients preferred pharmacy has been captured for this encounter? 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 This needs to go to her. * Telephone Encounter - Mimi José MA - 08/30/2023 8:52 AM EST Pharmacy faxes requesting refill: Requested Prescriptions Pending Prescriptions Disp Refills topiramate (TOPAMAX) 100 mg tablet 180 tablet 1 Sig: Take 1 tablet by mouth two times a day. Date of last visit:07/18/2023 Phone #: [phone] (home) [phone] (cell) The patients preferred pharmacy has been captured for this encounter? Yes Mimi José MA documented in this encounterPrem[facility]09-[facility] History and physical note Author Harshad Sauceda [facility] June 28, 2023 7:54am Note Date/Time June 28, 2023 7:51am [facility] Medical Records Department [address] [place] [address] History & Physical Exam 06/28/23 0748 MR#: [id number] Acct: [id number] Name: SUHA CALIX Rep #:[id number] : [id number] 43 From: Harshad Sauceda MD PCP: Care Physician,No Primary Status :[facility] Location: [facility] HPI - General HPI Narrative SUHA CALIX, is a 43 F who presents with left lower extremity post thrombotic syndrome, protein C and S deficiency, prior IVC filter. She has had worsening pain/swelling worse at the end of the day. 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 She denies any ulcerations. She does wear compression. [facility] Medical History Anxiety GERD (gastroesophageal reflux disease) H/O protein C deficiency H/O protein S deficiency Hypothyroidism Malignant melanoma Home Medications apixaban 5 mg tablet (Eliquis) 5 mg PO BID 06/02/22 [History Last Taken 06/27/23] eletriptan 20 mg tablet See Rx Instructions PO .COMPLEX 06/02/22 [History Last Taken Unknown] ibuprofen 600 mg tablet 600 mg PO TID 06/02/22 [History Last Taken Unknown] levothyroxine 112 mcg capsule 112 mcg PO DAILY 06/02/22 [History Last Taken 06/28/23] pantoprazole 40 mg tablet,delayed release 40 mg PO DAILY 06/02/22 [History Last Taken 06/28/23] polyethylene glycol 3350 17 gram/dose oral powder (Miralax) 4 g PO DAILY 06/02/22 [History Last Taken Unknown] tizanidine 4 mg tablet 4 mg PO QHS 06/02/22 [History Last Taken Unknown] topiramate 100 mg tablet 100 mg PO BID 06/02/22 [History Last Taken Unknown] Allergy/AdvReac Type Severity Reaction Status Date / Time Penicillins Allergy Severe Hives Verified 05/24/23 14:26 ketorolac [From Toradol] Allergy Intermediate Swelling Verified 05/24/23 14:26 latex Allergy Hives Verified 05/24/23 14:26 naproxen Allergy Hives Verified 05/24/23 14:26 Family History Father Bleeding disorder Heart disease Surgical History H/O adenoidectomy H/O local excision of skin lesion H/O superior vena cava filter placement H/O: H/O: hysterectomy Social History Smoking Status: Former smoker substance use type: does not use do you feel safe at home: Yes ROS Constitutional Constitutional: Denies chills, fever(s), frequent falls, lethargy or weakness Eyes Eyes: Denies blind spots, change in vision or loss of vision ENT HEENT: Denies bleeding gums, hoarseness or sore throat Cardiovascular Cardiovascular: Reports leg edema; Denies abdominal pain, bluish discoloration of hand/feet, chest pain with activity, claudication, cold extremities, cyanosis, dyspnea on exertion, erythema on extremities, irregular heart rhythm, leg ulcers, numbness in extremities or weakness in extremities Respiratory/Chest Respiratory/Chest: Denies cough, excessive phlegm production, shortness of breath at rest, shortness of breath with exertion or wheezing Gastrointestinal Gastrointestinal: Denies anorexia, change in stool character, constipation, diarrhea, melena or rectal bleeding Genitourinary Genitourinary: Denies dysuria or hematuria Musculoskeletal Musculoskeletal: Denies abnormal gait Integumentary Integumentary: Reports other Details: ; Denies erythema, non-healing lesions or wounds Neurologic Neurologic: Denies abnormal speech, focal weakness, headache(s), loss of vision,numbness, paresthesias or sensory deficit Hematologic/Lymphatic Hematologic/Lymphatic: Denies easy bleeding, easy bruising or lymphadenopathy Vital Signs Vital Signs Vital Signs: Weight Weight: 124 lb Body Mass Index (BMI) 21.2 Physical Exam Const alert, oriented x3, no apparent distress and healthy appearing General Appearance: cooperative; Negative for combative or lethargic Orientation / Consciousness: awake Exam Limitations: no limitations HEENT Head and Scalp: normocephalic and atraumatic Eyes EOMs intact bilaterally General Eye: normal appearance of both eyes Neck full ROM, no lymphadenopathy, thyroid normal and No no carotid bruits General: trachea midline; Negative for lymphadenopathy Thyroid: thyroid normal Resp normal respiratory effort and no use of accessory muscles Effort and Inspection: Negative for labored, stridor or audible wheezes Cardio regular rate and regular rhythm Back/Spine Cervical Spine: cervical ROM normal Extremity full ROM, normal capillary refill and no clubbing, cyanosis or edema Skin no rashes or lesions noted and no wounds Neuro oriented x3, CN's II-XII intact bilaterally, no focal motor deficits and no sensory deficits noted Psych thought process normal, cooperative, affect normal, speech normal and activity/motor behavior normal Results Lab / Micro Data 06/28/23 06:59 06/28/23 06:59 Labs: Laboratory Results - last 24 hr 06/28/23 06:59: WBC 7.1, RBC 4.58, Hgb 13.9, Hct 42.3, MCV 92.4, MCH 30.3, MCHC 32.9, RDW Std Deviation 44.0 H, RDW Coeff of Xochitl 13.1, Plt Count 298, MPV 9.4, Immature Gran % (Auto) 1.000 H, Neut % (Auto) 61.4, Lymph % (Auto) 26.8, Cotton % (Auto) 8.4, Eos % (Auto) 2.1, Baso % (Auto) 0.3, Absolute Neuts (auto) 4.3, Absolute Lymphs (auto) 1.89, Nucleated RBC % 0, Sodium 141, Potassium 3.5, Chloride 109 H, Carbon Dioxide 25.0, Anion Gap 7, BUN 17, Creatinine 0.94, EstimCreat Clear Calc 65.95, Est GFR (MDRD) Af Amer 83, Est GFR (MDRD) Non-Af 68, BUN/Creatinine Ratio 18.0, Glucose 100, Calcium 8.8 Assessment & Plan Assessment/Plan (1) History of DVT (deep vein thrombosis): PLAN: -venogram 06/28/23 0754 <Electronically signed by Harshad Sauceda MD> Cosigner Signature (if applicable): CC: Dr. Harshad Sauceda MD; No Primary Care Physician~ Signed [facility] Work Phone: 1(802) 260-522708-31-2023 NoteHNO ID: [id number] Author: Raymond Cardenas APRN.PREPARED FO[employer]S SERVICE TEAM MEMBER Service: ? Author Type: Nurse Practitioner Type: Progress Notes Filed: 06/22/2023 1:56 PM Note Text: Suha Calix is a 43 year old female here today acutely because of having: URI Symptoms Patient has symptoms of nasal congestion, runny nose, face pain, cough, ear pain, headache, chest congestion, fatigue and post nasal drainage. Symptoms on going for 4 weeks. Patient has tried several OTC cold medication and 2 weeks ago was given bactrim for sinusitis, but did not notice any improvement. Exposed to anyone with similar illness, no. Patient is a smoker. Denies fever, SOB, chest pain, dizziness, nausea, vomiting, diarrhea. URI She complains of cough. There is no shortness of breath or wheezing. Associated symptoms include headaches, postnasal drip and rhinorrhea. Pertinent negatives include no chest pain, ear pain, fever or sore throat. Review of Systems Constitutional: Positive for fatigue. Negative for chills and fever. HENT: Positive for congestion, postnasal drip, rhinorrhea and sinus pain. Negative for ear pain and sore throat. Respiratory: Positive for cough. Negative for chest tightness, shortness of breath and wheezing. Cardiovascular: Negative for chest pain, palpitations and leg swelling. Gastrointestinal: Negative for abdominal pain, diarrhea, nausea and vomiting. Skin: Negative for color change and rash. Neurological: Positive for headaches. Negative for dizziness. BP 120/78 Pulse 86 Temp 37.1 ?C (98.8 ?F) (Oral) Ht 165.1 cm (5' 5) Wt 57.2 kg (126 lb) LMP 03/08/2022 SpO2 96% BMI 20.97 kg/m? BMI 20.97 kg/(m2) ALLERGIES Allergen Reactions Latex Rash Penicillins Anaphylaxis Tape [Adhesive Tape* Rash Toradol [Ketorolac] Swelling Tongue swelling Physical Exam Constitutional: Appearance: Normal appearance. HENT: Right Ear: External ear normal. Tympanic membrane is bulging. Left Ear: External ear normal. Tympanic membrane is bulging. Ears: Comments: Erythremic ear canals Nose: Congestion and rhinorrhea present. Right Sinus: Maxillary sinus tenderness and frontal sinus tenderness present. Left Sinus: Maxillary sinus tenderness and frontal sinus tenderness present. Mouth/Throat: Mouth: Mucous membranes are moist. Pharynx: No posterior oropharyngeal erythema. Comments: Yellow post nasal drainage with white coating on the tongue. No pain with palpation Cardiovascular: Rate and Rhythm: Normal rate and regular rhythm. Heart sounds: Normal heart sounds. No murmur heard. Pulmonary: Effort: Pulmonary effort is normal. No respiratory distress. Breath sounds: Normal breath sounds. No wheezing. Skin: General: Skin is warm and dry. Neurological: Mental Status: She is alert and oriented to person, place, and time. ASSESSMENT/PLAN: 1. Bacterial sinusitis - ICD9: 473.9, 041.9, ICD10: J32.9, B96.89 - Will begin treatment with as per antibiotic as written, see orders - Supportive care with plenty of fluids, rest, and analgesia prn. - DOXYCYCLINE HYCLATE 100 MG CAPSULE Raymond Cardenas CNP Follow Up: Return if symptoms worsen or fail to improve. Prescription instructions reviewed with patient as applicable. Patient advised if symptoms do not improve or if symptoms worsen sooner, to contact their primary care physician. Potential red flag symptoms discussed with the patient. Reviewed appropriate action plan to take if red flag symptoms occur. Patient agreeable to treatment plan. Voice recognition software utilized. Minor grammatical and/or spelling errors may exist. Portions of this note have been entered by ancillary staff. I have reviewed and when necessary edited, so that they are an adequate record of my encounter with this patient.[facility]08-31-2023 History of Present illness Narrative* Raymond Cardenas, DATA SCIENCE AND IOT MANAGER.PREPARED FOODS SERVICE TEAM MEMBER - 06/22/2023 1:51 PM EDT Suha Calix is a 43 year old female here today acutely because of having: URI Symptoms Patient has symptoms of nasal congestion, runny nose, face pain, cough, ear pain, headache, chest congestion, fatigue and post nasal drainage. Symptoms on going for 4 weeks. Patient has tried severalOTC cold medication and 2 weeks ago was given bactrim for sinusitis, but did not notice any improvement. Exposed to anyone with similar illness, no. Patient is a smoker. Denies fever, SOB, chest pain, dizziness, nausea, vomiting, diarrhea. URI She complains of cough. There is no shortness of breath or wheezing. Associated symptoms include headaches, postnasal drip and rhinorrhea. Pertinent negatives include no chest pain, ear pain, fever or sore throat. Review of Systems Constitutional: Positive for fatigue. Negative for chills and fever. HENT: Positive for congestion, postnasal drip, rhinorrhea and sinus pain. Negative for ear pain andsore throat. Respiratory: Positive for cough. Negative for chest tightness, shortness of breath and wheezing. Cardiovascular: Negative for chest pain, palpitations and leg swelling. Gastrointestinal: Negative for abdominal pain, diarrhea, nausea and vomiting. Skin: Negative for color change and rash. Neurological: Positive for headaches. Negative for dizziness. BP 120/78 Pulse 86 Temp 37.1 C (98.8 F) (Oral) Ht 165.1 cm (5' 5) Wt 57.2 kg (126 lb) LMP 03/08/2022 SpO2 96% BMI 20.97 kg/m BMI 20.97 kg/(m^2) ALLERGIES Allergen Reactions Latex Rash Penicillins Anaphylaxis Tape [Adhesive Tape* Rash Toradol [Ketorolac] Swelling Tongue swelling Physical Exam Constitutional: Appearance: Normal appearance. HENT: Right Ear: External ear normal. Tympanic membrane is bulging. Left Ear: External ear normal. Tympanic membrane is bulging. Ears: Comments: Erythremic ear canals Nose: Congestion and rhinorrhea present. Right Sinus: Maxillary sinus tenderness and frontal sinus tenderness present. Left Sinus: Maxillary sinus tenderness and frontal sinus tenderness present. Mouth/Throat: Mouth: Mucous membranes are moist. Pharynx: No posterior oropharyngeal erythema. Comments: Yellow post nasal drainage with white coating on the tongue. No pain with palpation Cardiovascular: Rate and Rhythm: Normal rate and regular rhythm. Heart sounds: Normal heart sounds. No murmur heard. Pulmonary: Effort: Pulmonary effort is normal. No respiratory distress. Breath sounds: Normal breath sounds. No wheezing. Skin: General: Skin is warm and dry. Neurological: Mental Status: She is alert and oriented to person, place, and time. ASSESSMENT/PLAN: 1. Bacterial sinusitis - ICD9: 473.9, 041.9, ICD10: J32.9, B96.89 - Will begin treatment with as per antibiotic as written, see orders - Supportive care with plenty of fluids, rest, and analgesia prn. - DOXYCYCLINE HYCLATE 100 MG CAPSULE Raymond Cardenas CNP Follow Up: Return if symptoms worsen or fail to improve. Prescription instructions reviewed with patient as applicable. Patient advised if symptoms do not improve or if symptoms worsen sooner, to contact their primary care physician. Potential red flag symptoms discussed with the patient. Reviewed appropriate action plan to take if red flag symptoms occur. Patient agreeable to treatment plan. Voice recognition software utilized. Minor grammatical and/or spelling errors may exist. Portions of this note have been entered by ancillary staff. I have reviewed and when necessary edited, so that they are an adequate record of my encounter with this patient. documented in this encounterPrem[facility] Miscellaneous Notes* Telephone Encounter - Rosalina Hilton APRN.CNP - 05/21/2023 7:33 AM EDT Please advise labs all look good except Vit D low at 20.0 (30-100) Anemia numbers normal Start Vit D weekly, sent to pharmacy Re-check 8 weeks This is not likely causing her fatigue If persistent will need follow up with her PCP documented in this encounterPremier [facility]07-28-[facility]23 NoteHNO ID: [id number] Author: Rosalina Hilton APRN.CNP Service: ? Author Type: Nurse Practitioner Type: Progress Notes Filed: 05/19/2023 2:22 PM Note Text: Suha Calix is a 43 year old female here today for a check up on her multiple s/s Concern(s) today include: Post covid fatigue Her medications were reviewed today and her list is now up to date. She is compliant on taking her medications :Yes She She is tolerating her medication(s) without side effects: Yes Post Covid fatigue: Covid positive home test 04/07/2023 Symptoms were fatigue, O2 sat 89%, cough, nasal drainage, diarrhea, fever, chills, sore throat, ear pain, myalgia After 3 weeks s/s resolved except for fatigue, x3 migraines weekly (more frequent) Hx anemia, has seen Hematology [facility] Chronic sinus issues No CP or SOB, cough ALLERGIES Allergen Reactions Latex Rash Penicillins Anaphylaxis Tape [Adhesive Tape* Rash Toradol [Ketorolac] Swelling Tongue swelling PAST MEDICAL HISTORY Diagnosis Date Anxiety and depression DVT (deep venous thrombosis) (HCC) GERD (gastroesophageal reflux disease) H/O protein C deficiency H/O protein S deficiency History of DVT (deep vein thrombosis) 10/04/2021 Hypothyroid Malignant melanoma (HCC) Melanoma (HCC) Migraines Other specified hypothyroidism 10/04/2021 PAST SURGICAL HISTORY Procedure Laterality Date SECTION SINGLE 1998 COLONOSCOPY SCREENING 01/16/2023 EGD W/O BRSH SPEC VARICIES INJ 01/16/2023 ESOPHAGOGASTRODUODENOSCOPY TRANSORAL DIAGNOSTIC 03/23/2013 EGD HAND SURGERY HX Left trigger finger release 3 rd finger HYSTEROSCOPY, DIAGNOSTIC (SEPARATE 10/18/2021 IR IVC FILTER PLACEMENT 2010 MALIGNANT MELANOMA - WIDE EXCISION IN ANY AREA AND MUST INCLUDE > 1CM MARGINS AND LAYERED CLOSURE TONSILLECTOMY AND ADENOIDECTOMY VAGINAL HYSTERECTOMY 03/08/2022 total FAMILY HISTORY Problem Relation Age of Onset Clotting Disorder Father Protein C and S deficiency No Known Problems Mother Clotting Disorder Paternal Grandfather Anesthesia Problems No Family History Social History Tobacco Use Smoking status: Former Packs/day: 1.00 Years: 22.00 Total pack years: 22.00 Types: Cigarettes Quit date: 03/23/2016 Years since quittin.1 Smokeless tobacco: Never Vaping Use Vaping Use: Never used Substance Use Topics Alcohol use: Not Currently Drug use: Never Current Outpatient Medications Medication Sig Dispense Refill tiZANidine (ZANAFLEX) 4 mg tablet Take 0.5-1 tablets by mouth three times daily as needed. [address] (PROTONIX) 40 mg tablet Take 1 tablet by mouth once daily. 90 tablet 1 topiramate (TOPAMAX) 100 mg tablet Take 1 tablet by mouth twice daily. 180 tablet 1 dicyclomine (BENTYL) 20 mg tablet TAKE ONE TABLET BY MOUTH THREE TIMES A DAY NEEDED FOR ABDOMINAL PAIN 270 tablet 1 eletriptan (RELPAX) 20 mg tablet Take 1 tablet by mouth as needed for migraine headache (see administration instructions). may repeat in 2 hours if necessary 10 tablet 5 apixaban (ELIQUIS) 5 mg tab(s) Take 1 tablet by mouth twice daily. 180 tablet 1 levothyroxine (SYNTHROID) 112 mcg tablet Take 1 tablet by mouth once daily. 90 tablet 3 BIOTIN ORAL Take 1 capsule by mouth once daily. fluticasone (FLONASE) 50 mcg/actuation nasal spray USE 1 SPRAY IN EACH NOSTRIL ONCE DAILY 16 mL 1 ibuprofen (MOTRIN) 600 mg tablet Take 1 tablet by mouth every 6 hours. Take with food. 60 tablet 0 polyethylene glycol 3350 (MIRALAX, GLYCOLAX) 17 gram/dose powder Take 17 g by mouth once daily. 510 g 4 ondansetron orally disintegrating (ZOFRAN ODT) 4 mg disintegrating tablet Take 1 tablet by mouth every 8 hours as needed for nausea/vomiting. 30 tablet 5 sulfamethoxazole-trimethoprim (BACTRIM DS) 800-160 mg per tablet Take 1 tablet by mouth twice daily for 7 days. 14 tablet 0 predniSONE (DELTASONE) 20 mg tablet Take 1 tablet by mouth twice daily for 5 days. 10 tablet 0 diazePAM (VALIUM) 10 mg tablet Take 1 tablet by mouth as directed for 1 day. One the night and 2 hours before the procedure. (Patient not taking: Reported on 05/19/2023) 2 tablet 0 cream base no.103, bulk, crea Apply to affected area as directed. Apply 1-2 grams every 6-8 hours as needed for pain (Patient not taking: Reported on 05/19/2023) 180 g 11 cyanocobalamin 1,000 mcg/mL INJECT 1ML (1000MCG) IM ONCE A WEEK FOR 4 WEEKS THE INJECT 1ML, IM ONCE A MONTH FOR 5 MONTHS (Patient not taking: Reported on 05/19/2023) 6 mL 1 acetaminophen (TYLENOL EXTRA STRENGTH) 500 mg tablet Take 2 tablets by mouth every 6 hours. (Patient not taking: Reported on 05/19/2023) 60 tablet 0 No current facility-administered medications for this visit. REVIEW OF SYSTEMS: GENERAL: Fatigued HEENT: Increased headaches, nasal drainage and congestion, facial tendernessNo sore throat, resolved NECK: Negative pain RESPIRATORY: Negative for cou (more content not included)...[facility]07-28-[facility] Nurse Note* Yesenia Cloud - 05/19/2023 2:29 PM EDT Venipuncture performed to left antecubital. Number of tubes collected: 1 gold and 1 lavender. documented in this encounterPrem[facility] History of Present illness Narrative* Rosalina Hilton APRN.PREPARED [employer]S SERVICE TEAM MEMBER - 05/19/2023 1:47 PM EDT Suha Calix is a 43 year old female here today for a check up on her multiple s/s Concern(s) today include: Post covid fatigue Her medications were reviewed today and her list is now up to date. She is compliant on taking her medications :Yes She She is tolerating her medication(s) without side effects: Yes Post Covid fatigue: Covid positive home test 04/07/2023 Symptoms were fatigue, O2 sat 89%, cough, nasal drainage, diarrhea, fever, chills, sore throat, earpain, myalgia After 3 weeks s/s resolved except for fatigue, x3 migraines weekly (more frequent) Hx anemia, has seen Hematology ([facility] [place]) Chronic sinus issues No CP or SOB, cough ALLERGIES Allergen Reactions Latex Rash Penicillins Anaphylaxis Tape [Adhesive Tape* Rash Toradol [Ketorolac] Swelling Tongue swelling PAST MEDICAL HISTORY Diagnosis Date Anxiety and depression DVT (deep venous thrombosis) (HCC) GERD (gastroesophageal reflux disease) H/O protein C deficiency H/O protein S deficiency History of DVT (deep vein thrombosis) 10/04/2021 Hypothyroid Malignant melanoma (HCC) Melanoma (HCC) Migraines Other specified hypothyroidism 10/04/2021 PAST SURGICAL HISTORY Procedure Laterality Date SECTION SINGLE 1998 COLONOSCOPY SCREENING 01/16/2023 EGD W/O BRSH SPEC VARICIES INJ 01/16/2023 ESOPHAGOGASTRODUODENOSCOPY TRANSORAL DIAGNOSTIC 03/23/2013 EGD HAND SURGERY HX Left trigger finger release 3 rd finger HYSTEROSCOPY, DIAGNOSTIC (SEPARATE 10/18/2021 IR IVC FILTER PLACEMENT 2010 MALIGNANT MELANOMA - WIDE EXCISION IN ANY AREA AND MUST INCLUDE > 1CM MARGINS & LAYERED CLOSURE TONSILLECTOMY & ADENOIDECTOMY <AGE 12 VAGINAL HYSTERECTOMY 03/08/2022 total FAMILY HISTORY Problem Relation Age of Onset Clotting Disorder Father Protein C and S deficiency No Known Problems Mother Clotting Disorder Paternal Grandfather Anesthesia Problems No Family History Social History Tobacco Use Smoking status: Former Packs/day: 1.00 Years: 22.00 Total pack years: 22.00 Types: Cigarettes Quit date: 03/23/2016 Years since quittin.1 Smokeless tobacco: Never Vaping Use Vaping Use: Never used Substance Use Topics Alcohol use: Not Currently Drug use: Never Current Outpatient Medications Medication Sig Dispense Refill tiZANidine (ZANAFLEX) 4 mg tablet Take 0.5-1 tablets by mouth three times daily as needed. [address] (PROTONIX) 40 mg tablet Take 1 tablet by mouth once daily. 90 tablet 1 topiramate (TOPAMAX) 100 mg tablet Take 1 tablet by mouth twice daily. 180 tablet 1 dicyclomine (BENTYL) 20 mg tablet TAKE ONE TABLET BY MOUTH THREE TIMES A DAY NEEDED FOR ABDOMINAL PAIN 270 tablet 1 eletriptan (RELPAX) 20 mg tablet Take 1 tablet by mouth as needed for migraine headache (see administration instructions). may repeat in 2 hours if necessary 10 tablet 5 apixaban (ELIQUIS) 5 mg tab(s) Take 1 tablet by mouth twice daily. 180 tablet 1 levothyroxine (SYNTHROID) 112 mcg tablet Take 1 tablet by mouth once daily. 90 tablet 3 BIOTIN ORAL Take 1 capsule by mouth once daily. fluticasone (FLONASE) 50 mcg/actuation nasal spray USE 1 SPRAY IN EACH NOSTRIL ONCE DAILY 16 mL 1 ibuprofen (MOTRIN) 600 mg tablet Take 1 tablet by mouth every 6 hours. Take with food. 60 tablet 0 polyethylene glycol 3350 (MIRALAX, GLYCOLAX) 17 gram/dose powder Take 17 g by mouth once daily. 510g 4 ondansetron orally disintegrating (ZOFRAN ODT) 4 mg disintegrating tablet Take 1 tablet by mouth every 8 hours as needed for nausea/vomiting. 30 tablet 5 sulfamethoxazole-trimethoprim (BACTRIM DS) 800-160 mg per tablet Take 1 tablet by mouth twice dailyfor 7 days. 14 tablet 0 predniSONE (DELTASONE) 20 mg tablet Take 1 tablet by mouth twice daily for 5 days. 10 tablet 0 diazePAM (VALIUM) 10 mg tablet Take 1 tablet by mouth as directed for 1 day. One the night and 2 hours before the procedure. (Patient not taking: Reported on 05/19/2023) 2 tablet 0 cream base no.103, bulk, crea Apply to affected area as directed. Apply 1-2 grams every 6-8 hours as needed for pain (Patient not taking: Reported on 05/19/2023) 180 g 11 cyanocobalamin 1,000 mcg/mL INJECT 1ML (1000MCG) IM ONCE A WEEK FOR 4 WEEKS THE INJECT 1ML, IM ONCEA MONTH FOR 5 MONTHS (Patient not taking: Reported on 05/19/2023) 6 mL 1 acetaminophen (TYLENOL EXTRA STRENGTH) 500 mg tablet Take 2 tablets by mouth every 6 hours. (Patient not taking: Reported on 05/19/2023) 60 tablet 0 No current facility-administered medications for this visit. REVIEW OF SYSTEMS: GENERAL: Fatigued HEENT: Increased headaches, nasal drainage and congestion, facial tendernessNo sore throat, resolved NECK: Negative pain RESPIRATORY: Negative for cough, wheezing and shortness of breath CARDIOVASCULAR: Negative for chest pain, palpitations GASTROINTESTINAL: Negative for abdominal discomfort, nausea NEUROLOGIC: Negative for dizziness BP 94/65 Pulse 88 Ht 165.1 cm (5' 5) Wt 58.1 kg (128 lb) LMP 03/08/2022 SpO2 98% BMI 21.30 kg/m BMI 21.30 kg/(m^2) PHYSICAL EXAMINATION: General appearance: Cooperative, in no acute distress, alert Skin: Skin color, texture, turgor normal. No rashes or lesions. Head: Normocephalic. Eyes: conjunctivae/corneas clear Ears: External ears normal. Canals clear. TM's normal. Nose/Sinuses: Nares normal. Septum midline. Mucosa normal. Thick yellow drainage with mild sinus tenderness. Oropharynx: Lips, mucosa, and tongue normal. Teeth and gums normal. Oropharynx normal. Neck: Neck supple, no adenopathy Lungs: Good diaphragmatic excursion. Lungs clear to auscultation. Heart: RRR. Normal HS with no murmurs Musculoskeletal: Muscular strength intact. Psychiatric: Stable. Neuro: Gait normal ASSESSMENT/PLAN: 1. Other fatigue - ICD9: 780.79, ICD10: R53.83 (primary diagnosis) Labs and call results Start antibiotic and steroids for sinus infection - CBC + DIFF - IRON + TIBC - FERRITIN BLD - TSH BLD - VITAMIN B12 BLOOD - VITAMIN D 25 HYDROXY - MONOTEST B/O 2. History of anemia - ICD9: V12.3, ICD10: Z86.2 - CBC + DIFF - IRON + TIBC - FERRITIN BLD - TSH BLD - VITAMIN B12 BLOOD - VITAMIN D 25 HYDROXY - MONOTEST B/O 3. Other migraine without status migrainosus, not intractable - ICD9: 346.80, ICD10: G43.809 May be r/t sinus infection the increased frequency migraines 4. History of COVID-19 - ICD9: V12.09, ICD10: Z86.16 - CBC + DIFF - IRON + TIBC - FERRITIN BLD - TSH BLD - VITAMIN B12 BLOOD - VITAMIN D 25 HYDROXY - MONOTEST B/O 5. Bacterial sinusitis - ICD9: 473.9, 041.9, ICD10: J32.9, B96.89 - Will begin treatment with as per antibiotic as written, see orders - Supportive care with plenty of fluids, rest, and analgesia prn. - Follow up in 3-5 days if symptoms persist or worsen. - SULFAMETHOXAZOLE 800 MG-TRIMETHOPRIM 160 MG TABLET - PREDNISONE 20 MG TABLET - PREDNISONE 20 MG TABLET - SULFAMETHOXAZOLE 800 MG-TRIMETHOPRIM 160 MG TABLET Rosalina Hilton APRN.PREPARED [employer] SERVICE TEAM MEMBER documented in this encounterPrem[facility] Miscellaneous Notes* Telephone Encounter - Madison Denny PA-C - 05/18/2023 10:17 AM EDT The following approved medication requests have been transmitted electronically. Requested Prescriptions Pending Prescriptions Disp Refills cream base no.103, bulk, crea 180 g 11 Sig: Apply to affected area as directed. Apply 1-2 grams every 6-8 hours as needed for pain Madison Denny PA-C * Telephone Encounter - Natalya Cook RN - 05/18/2023 10:02 AM EDT Requested Prescriptions Pending Prescriptions Disp Refills cream base no.103, bulk, crea 180 g 11 Sig: Apply to affected area as directed. Apply 1-2 grams every 6-8 hours as needed for pain Please review and advise. Natalya Cook RN documented in this encounterPremier Health [facility]07-27-[facility]23 Instructions* Patient Instructions* Madison Denny PA-C - 05/18/2023 9:30 AM EDT The OARRS report has been reviewed and is consistent with the patients medical history and medication intake. Continue with the tizanidine and compounding cream. Continue using TENS unit. Try this on the right hip. Continue with core strengthening and range of motion exercises Continue with the topamax and eletriptan for the migraines. FU in the office in 4-[address] Emerson Schedule a right SI joint injection x 1 visit. The patient is going to FU with the surgeon regarding the possible stents in the legs. I discussed the patient with Dr. Emerson who agrees with my assessment and plan. All of the above is to improve functionality and quality of life. No evidence of drug abuse or diversion is seen at this time. 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 If you are receiving oral sedation, you may eat a light meal. Clothing to wear: Back injections - elastic waist/jogging pants Neck injections - wide neck or button down shirt; please do not wear neck jewelry Plan to take it easy the rest of the day following your procedure. You may resume normal [id number] hours following your procedure or as otherwise instructed. Special Instructions - NONE documented in this encounterPremier Health [facility]07-27-[facility] History of Present illness Narrative* Madison Denny PA-C - 05/18/2023 9:15 AM EDT This note was created using GridPointter. Subjective Suha Calix is a 43 year old female. The patient primarily being seen for back pain Patient was last seen on: 11/18/22 At that time, the treatment plan was: see notes Current Meds: Tizanidine - last dose 3 days ago, Compounding Cream - needs refill Efficacy: help top take the edge off Side effects: none TENS unit: yes How often used: few times weekly Benefit: helps a little Physical Therapy: last year - [facility] Last UDS: no narcotics Last injection: 01/25/22 - TPI OARRS reviewed At the present time, the patient reports benefit with her present analgesic therapy. She denies anyadverse effects. Since her previous visit, she denies any hospitalizations or ER visits. She had COVID in February and will be seeing her doctor tomorrow. She would like to discuss scheduling the SI injection e INTAKE PAIN ASSESSMENT 05/17/2023 05/18/2023 Are you having pain associated with your visit today? Yes, Provider notified Yes, Provider notified Pain Scales - Verbal (Numeric Rating or Visual Analog Scale) Pain Level 7 7 Pain Location Back Back Description Numbness;Sharp;Shooting;Spasm;Stabbing;Throbbing;Tightness Sharp;Stabbing;Throbbing;Tightness Duration Amount of Time 16 - Duration Units Hours Years Frequency Continuous Continuous Intervention/Comfort measure Medication;Reposition;Heat;Massage;Pillow support Medication;Reposition;Relaxation;Heat;Massage Comments - - Pain Assessment - - HPI PAST MEDICAL HISTORY Diagnosis Date Anxiety and depression DVT (deep venous thrombosis) (HCC) GERD (gastroesophageal reflux disease) H/O protein C deficiency H/O protein S deficiency History of DVT (deep vein thrombosis) 10/04/2021 Hypothyroid Malignant melanoma (HCC) Melanoma (HCC) Migraines Other specified hypothyroidism 10/04/2021 PAST SURGICAL HISTORY Procedure Laterality Date SECTION SINGLE 1998 COLONOSCOPY SCREENING 01/16/2023 EGD W/O BRSH SPEC VARICIES INJ 01/16/2023 ESOPHAGOGASTRODUODENOSCOPY TRANSORAL DIAGNOSTIC 03/23/2013 EGD HAND SURGERY HX Left trigger finger release 3 rd finger HYSTEROSCOPY, DIAGNOSTIC (SEPARATE 10/18/2021 IR IVC FILTER PLACEMENT 2010 MALIGNANT MELANOMA - WIDE EXCISION IN ANY AREA AND MUST INCLUDE > 1CM MARGINS & LAYERED CLOSURE TONSILLECTOMY & ADENOIDECTOMY <AGE 12 VAGINAL HYSTERECTOMY 03/08/2022 total Social History Tobacco Use Smoking status: Former Packs/day: 1.00 Years: 22.00 Total pack years: 22.00 Types: Cigarettes Quit date: 03/23/2016 Years since quittin.1 Smokeless tobacco: Never Vaping Use Vaping Use: Never used Substance Use Topics Alcohol use: Not Currently Drug use: Never Review of Systems Constitutional: Negative for fever and unexpected weight change. Musculoskeletal: +back pain, joint pain/swelling, muscle cramps/weakness, stiffness, arthritis, and leg pain with exertion. Objective BP 90/59 (BP Site: Left Arm, BP Position: Sitting, BP Cuff Size: Large Adult) Pulse 82 Temp 36.9 C (98.4 F) (Temporal) Ht 165.1 cm (5' 5) Wt 55.3 kg (122 lb) LMP 03/08/2022 SpO2 100% BMI 20.30 kg/m Physical Exam Vitals and nursing note reviewed. Constitutional: Appearance: Normal appearance. She is well-developed, well-groomed and normal weight. HENT: Head: Normocephalic and atraumatic. Right Ear: Hearing normal. Left Ear: Hearing normal. Eyes: Conjunctiva/sclera: Conjunctivae normal. Musculoskeletal: Comments: She walks with a normal gait. She has tenderness to palpation in the cervical region withspasms noted in the trapezius and paraspinal muscles. Strength is 5/5 throughout. Sensation is intact to light touch throughout. SLR is negative. She has tenderness to palpation over the right SI joint. +FABERs, compression, and distraction test. Neurological: Mental Status: She is alert and oriented to person, place, and time. Psychiatric: Attention and Perception: Attention and perception normal. Mood and Affect: Mood and affect normal. Speech: Speech normal. Behavior: Behavior normal. Behavior is cooperative. Thought Content: Thought content normal. Judgment: Judgment normal. Assessment and Plan ASSESSMENT/PLAN: 1. Sacroiliitis (HCC) - ICD9: 720.2, ICD10: M46.1 (primary diagnosis) The OARRS report has been reviewed and is consistent with the patients medical history and medication intake. Continue with the tizanidine and compounding cream. Continue using TENS unit. Try this on the right hip. Continue with core strengthening and range of motion exercises Continue with the topamax and eletriptan for the migraines. FU in the office in 4-[address] Emerson Schedule a right SI joint injection x 1 visit. The patient is going to FU with the surgeon regarding the possible stents in the legs. - SURGICAL REQUEST - ELECTIVE (05/2020) - DIAZEPAM 10 MG TABLET 2. Myofascial pain syndrome - ICD9: 729.1, ICD10: M79.18 - TIZANIDINE 4 MG TABLET 3. Neck pain - ICD9: 723.1, ICD10: M54.2 4. Right leg pain - ICD9: 729.5, ICD10: M79.604 5. Left leg pain - ICD9: 729.5, ICD10: M79.605 6. Other migraine without status migrainosus, not intractable - ICD9: 346.80, ICD10: G43.809 Madison Denny PA-C documented in this encounterPremier Health [facility]05-[facility] Miscellaneous Notes* Telephone Encounter - Rere Larios MA - 02/27/2023 8:45 AM EDT Pharmacy faxes requesting refill: Requested Prescriptions Pending Prescriptions Disp Refills pantoprazole DR (PROTONIX) 40 mg tablet 90 tablet 1 Date of last visit:11/09/22 Phone #: [phone] (home) [phone] (cell) The patients preferred pharmacy has been captured for this encounter? yes documented in this encounterPremier Health [facility]05-04-[facility]23 Miscellaneous Notes* Telephone Encounter - Libby Harrison MA - 02/23/2023 7:27 AM EDT Pharmacy faxes requesting refill: Requested Prescriptions Pending Prescriptions Disp Refills dicyclomine (BENTYL) 20 mg tablet 270 tablet 1 Sig: TAKE ONE TABLET BY MOUTH THREE TIMES A DAY NEEDED FOR ABDOMINAL PAIN eletriptan (RELPAX) 20 mg tablet 10 tablet 5 Sig: Take 1 tablet by mouth as needed for migraine headache (see administration instructions). may repeat in 2 hours if necessary apixaban (ELIQUIS) 5 mg tab(s) 180 tablet 1 Sig: Take 1 tablet by mouth twice daily. levothyroxine (SYNTHROID) 112 mcg tablet 90 tablet 3 Sig: Take 1 tablet by mouth once daily. Date of last visit:11/09/2022 Phone #: [phone] (home) [phone] (cell) The patients preferred pharmacy has been captured for this encounter? yes documented in [facility] NoteHNO ID: [id number] Author: Fab Vincent PA-C Service: ? Author Type: Physician Toggle Press Operator Type: Progress Notes Filed: 02/12/2023 10:22 PM Note Text: FOLLOW UP VISIT - ENDOSCOPY NAME: Suha Cunningham [facility] NO.: [id number] DATE OF SERVICE: 02/06/2023 : 1980 REFERRING PHYSICIAN: Medhat Denny MD Suha is a patient I am following with Dr. Woodward for history of abdominal discomfort and anemia. Dr. Woodward performed upper and lower endoscopy on 01/16/23. The patient was found to have gastritis, normal appearing esophagus on upper endoscopy. Colonoscopy appeared normal, random biopsies taken. Pathology demonstrated: FINAL DIAGNOSIS A. Jejunum, biopsy: - Small intestinal mucosa with no diagnostic abnormality. - No evidence of celiac disease. B. Stomach, antrum, biopsy: - Gastric antral mucosa with reactive gastropathy. - No morphologic evidence of Helicobacter pylori organisms. C. Stomach, proximal, biopsy: - Gastric oxyntic mucosa with histologic features consistent with proton pump inhibitor use. - No morphologic evidence of Helicobacter pylori organisms. D. Esophagus, distal, biopsy: - Squamous mucosa with mild reactive epithelial changes. - Negative for intraepithelial eosinophilia. E. Esophagus, mid, biopsy: - Squamous mucosa with no diagnostic abnormality. - Negative for intraepithelial eosinophilia. F. Colon, ascending, random, biopsy: - Colonic mucosa with no diagnostic abnormality. - No evidence of microscopic colitis. G. Terminal ileum, biopsy: - Small intestinal mucosa with no diagnostic abnormality. H. Colon, descending, random, biopsy: - Colonic mucosa with focally denuded epithelium and prominent lymphoid aggregate, otherwise no diagnostic abnormality. - No evidence of microscopic colitis. The patient notes no new complaints since the procedure. She does however continue to note intermittent spasms of abdominal discomfort VITALS: Blood pressure 110/82, pulse 83, temperature 37.1 ?C (98.8 ?F), last menstrual period 03/08/2022, SpO2 99 %. General: patient is alert, cooperative, pleasant and in no acute distress On examination, the abdomen is benign. Assessment IMPRESSION: intermittent abdominal discomfort of unclear etiology. unremarkable colonoscopy and EGD, no obvious signs of GI bleeding noted PLAN: The operative findings and pathology report were reviewed with the patient, and the patient has had the opportunity to ask questions and have questions answered. If the patient notes any problems or changes in bowel function, the patient should contact me immediately. Otherwise I recommend follow up endoscopy in 10 years. Follow up with PCP for anemia Referral to Gastro for further evaluation of abdominal complaints Patient verbalized understanding of all above and agreed with the plan Diagnoses: No diagnosis found. I spent a total of 23 minutes on the date of the service which included preparing to see the patient, [id number] patient care, completing clinical documentation, obtaining and/or reviewing separately obtained history, counseling and educating the patient/family/caregiver, independently interpreting results (not separately reported), and communicating results to the patient/family/caregiver. [facility]04-17-2023 Instructions* Patient Instructions* Fab Vincent PA-C - 02/06/2023 1:42 PM EDT -Follow up with primary care and hem/onc for anemia -Referral to GI for further evaluation of abdominal symptoms-notify office if you have not been contacted within a week regarding appointment The following instructions are important for you related to your office visit today with the [facility] General Surgeons. INSTRUCTIONS FOLLOWING A NORMAL COLONOSCOPY 10YR I discussed with you the findings of your colonoscopy. Since there were no worrisome abnormalities,I recommend you undergo repeat endoscopic screening every 10 years. This is the current recommendation for colon cancer screening. If you note bleeding, change in bowel habits, or other suspicious colon related symptoms before that time, those symptoms should be evaluated as necessary. INSTRUCTIONS FOR PEPTIC ULCER DISEASE/GASTRITIS I discussed with you the findings of your upper endoscopy. Your upper endoscopy demonstrated signs of peptic ulcer disease or irritation. This can be seen as a range of issues from actual ulcers in the stomach or duodenum (first part of the small bowel) or irritation ranging from redness to more significant irritation with erosions of the stomach or duodenum. These conditions are usually caused from a combination of too much acid production or too little protective mucus production in the stomach. Factors that increase acid production include smoking and stress. If you smoke, stopping smoking will often cure these issues without needing other medications. Factors that decrease the stomach's production of protective mucus include alcohol consumption, smoking, aspirin and other anti-inflammatory use. Over the counter medications including antiacids and acid reducing medications including H2 blockers (Zantac and the like) and proton pump inhibitors (prilosec, prevacid and the like) neutralize or prevent acid production. Prescription strength proton pump inhibitors (PPIs) may be necessary if your symptoms persist. Carafate may be added to PPI treatment in refractory cases. Avoiding smoking, alcohol and antiinflammatory medications are important in the successful treatment of peptic diseases. New or worsening symptoms such are epigastric pain, burning, difficulty swallowing or food stickingshould be relayed to your physician. Feeling full early after eating, or black, tarry, foul smelling stools are also worrisome. If you have any difficulties or concerns, you should contact our office immediately. If you note any additional difficulties, questions, or concerns, you should contact our office immediately @ [phone] and ask to be transferred to the General Surgery department. documented in this encounterPrem[facility]04-17-[facility]23 History of Present illness Narrative* Fab Vincent PA-C - 02/06/2023 1:23 PM EDT FOLLOW UP VISIT - ENDOSCOPY NAME: Suha Calix [facility] NO.: [id number] DATE OF SERVICE: 02/06/2023 : 1980 REFERRING PHYSICIAN: Medhat Denny MD Suha is a patient I am following with Dr. Woodward for history of abdominal discomfort and anemia. Dr. Woodward performed upper and lower endoscopy on 01/16/23. The patient was found to have gastritis, normal appearing esophagus on upper endoscopy. Colonoscopy appeared normal, random biopsies taken. Pathology demonstrated: FINAL DIAGNOSIS A. Jejunum, biopsy: - Small intestinal mucosa with no diagnostic abnormality. - No evidence of celiac disease. B. Stomach, antrum, biopsy: - Gastric antral mucosa with reactive gastropathy. - No morphologic evidence of Helicobacter pylori organisms. C. Stomach, proximal, biopsy: - Gastric oxyntic mucosa with histologic features consistent with proton pump inhibitor use. - No morphologic evidence of Helicobacter pylori organisms. D. Esophagus, distal, biopsy: - Squamous mucosa with mild reactive epithelial changes. - Negative for intraepithelial eosinophilia. E. Esophagus, mid, biopsy: - Squamous mucosa with no diagnostic abnormality. - Negative for intraepithelial eosinophilia. F. Colon, ascending, random, biopsy: - Colonic mucosa with no diagnostic abnormality. - No evidence of microscopic colitis. G. Terminal ileum, biopsy: - Small intestinal mucosa with no diagnostic abnormality. H. Colon, descending, random, biopsy: - Colonic mucosa with focally denuded epithelium and prominent lymphoid aggregate, otherwise no diagnostic abnormality. - No evidence of microscopic colitis. The patient notes no new complaints since the procedure. She does however continue to note intermittent spasms of abdominal discomfort VITALS: Blood pressure 110/82, pulse 83, temperature 37.1 C (98.8 F), last menstrual period 03/08/2022, SpO2 99 %. General: patient is alert, cooperative, pleasant and in no acute distress On examination, the abdomen is benign. Assessment IMPRESSION: intermittent abdominal discomfort of unclear etiology. unremarkable colonoscopy and EGD, no obvious signs of GI bleeding noted PLAN: The operative findings and pathology report were reviewed with the patient, and the patient has hadthe opportunity to ask questions and have questions answered. If the patient notes any problems or changes in bowel function, the patient should contact me immediately. Otherwise I recommend follow up endoscopy in 10 years. Follow up with PCP for anemia Referral to Gastro for further evaluation of abdominal complaints Patient verbalized understanding of all above and agreed with the plan Diagnoses: No diagnosis found. I spent a total of 23 minutes on the date of the service which included preparing to see the patient, [id number] patient care, completing clinical documentation, obtaining and/or reviewing separately obtained history, counseling and educating the patient/family/caregiver, independently interpretin g results (not separately reported), and communicating results to the patient/family/caregiver. Fab Vincent PA-C documented in this encounterPrem[facility]04-04-2023 Miscellaneous Notes* Telephone Encounter - Lukasz Woodward MD - 01/24/2023 6:42 AM EDT FOLLOW UP ENDOSCOPY - RESULTS AND RECOMMENDATIONS NAME: Suha Calix [facility] NO.: [id number] : 1980 DATE: January 24, 2023 PRIMARY CARE PROVIDER: Medhat Denny MD REFERRING PHYSICIAN: No ref. provider found Suha Calix is a patient referred for endoscopy for abdominal discomfort. I performed upper and lower endoscopy endoscopy on January 16, 2023. The patient was found to have: Upper Endoscopy: Findings: The examined jejunum was normal. Biopsies for histology were taken with a cold forceps for evaluation of celiac disease. The examined duodenum was normal. Scattered mild inflammation characterized by erythema was found in the gastric antrum. Biopsies were taken with a cold forceps for histology. Segmental moderate inflammation characterized by erosions, friability and granularity was found in the gastric fundus. Biopsies were taken with a cold forceps for histology. The lower third of the esophagus was normal. Biopsies were taken with a cold forceps for histology. The middle third of the esophagus was normal. Biopsies were taken with a cold forceps for histology. Lower Endoscopy: Findings: The perianal and digital rectal examinations were normal. The terminal ileum appeared normal. Biopsies were taken with a cold forceps for histology. The colon (entire examined portion) appeared normal. Biopsies for histology were taken with a cold forceps from the ascending colon and descending colon for evaluation of microscopic colitis. The entire examined colon appeared normal on direct and retroflexion views. Pathology demonstrated: FINAL DIAGNOSIS A. Jejunum, biopsy: - Small intestinal mucosa with no diagnostic abnormality. - No evidence of celiac disease. B. Stomach, antrum, biopsy: - Gastric antral mucosa with reactive gastropathy. - No morphologic evidence of Helicobacter pylori organisms. C. Stomach, proximal, biopsy: - Gastric oxyntic mucosa with histologic features consistent with proton pump inhibitor use. - No morphologic evidence of Helicobacter pylori organisms. D. Esophagus, distal, biopsy: - Squamous mucosa with mild reactive epithelial changes. - Negative for intraepithelial eosinophilia. E. Esophagus, mid, biopsy: - Squamous mucosa with no diagnostic abnormality. - Negative for intraepithelial eosinophilia. F. Colon, ascending, random, biopsy: - Colonic mucosa with no diagnostic abnormality. - No evidence of microscopic colitis. G. Terminal ileum, biopsy: - Small intestinal mucosa with no diagnostic abnormality. H. Colon, descending, random, biopsy: - Colonic mucosa with focally denuded epithelium and prominent lymphoid aggregate, otherwise no diagnostic abnormality. - No evidence of microscopic colitis. IMPRESSION: No bloating, no significant findings for pathologic causes PLAN: Patient will likely follow-up with Fab Vincent my impression would be this is more consistent with irritable bowel syndrome. The patient is instructed to follow-up with your primary care provider I have instructed my staff to forward the above information to the patient and to the appropriate providers documented in this encounterPrem[facility] Miscellaneous Notes* Telephone Encounter - Praveen Avitia MA - 01/17/2023 10:35 AM EDT Pharmacy faxes requesting refill: Requested Prescriptions Pending Prescriptions Disp Refills cyanocobalamin 1,000 mcg/mL [Pharmacy Med Name: CYANOCOBALAMIN 1,000 MCG/ML VL] 6 mL 1 Sig: INJECT 1ML (1000MCG) IM ONCE A WEEK FOR 4 WEEKS THE INJECT 1ML, IM ONCE A MONTH FOR 5 MONTHS Date of last visit:11/09/2022 Phone #: [phone] (home) [phone] (cell) The patients preferred pharmacy has been captured for this encounter? yes documented in this encounterPrem[facility]03-27-2023 History and physical note * Lukasz Woodward MD - 01/16/2023 12:15 PM EDT UPDATED PROCEDURAL SEDATION HISTORY AND PHYSICAL EXAMINATION SERVICE DATE: 01/16/2023 SERVICE TIME: 12:17 PM PHYSICAL EXAM MUST BE COMPLETED ON ADMISSION PROCEDURE: Procedure Indications: The History and Physical (completed in the past 30 days) has been reviewed and the patient has beenexamined. The contents accurately reflect the patient's condition with the following additions or revisions since the H&P was completed. ASA Class: ASA Class:: Patient with severe systemic disease Examination indicates no changes. AIRWAY: Airway Visualization of Uvula: Yes Mouth opening greater than 2 fingerbreadths: Yes Neck Full Range of Motion: Yes LUNGS: Lungs clear to auscultation CARDIAC: Regular rhythm,Regular rate Provisional Diagnosis/Treatment Plan: IBS, abdominal cramping, anemia - EGD and Colonoscopy SEDATION GOAL: Moderate This H&P can be found in the attached. SIGNATURE: Lukasz Woodward MD PATIENT NAME: Suha Calix DATE: January 16, 2023 TIME: 12:17 PM Source Note - Lukasz Woodward MD - 01/16/2023 12:15 PM EDT Images from the original note were not included. HISTORY AND PHYSICAL Suha Calix 1980 REFERRING PHYSICIAN: No ref. provider found CHIEF COMPLAINT: Consult (Colonoscopy consult) HPI: The patient is a 42 year old female referred for endoscopy. Suha notes a history of intermittent generalized abdominal pain and anemia. Pain varies in intensity from mild to severe and sometimes feels like spasms, often accompanied by multiple formed stools. Denies dark stools or blood mixed in stools. States pain seems worse with activity. Denies family history of colon issues Suha has not undergone prior endoscopy. She was seen by PCP for CT of abdomen and pelvis which showed no acute abdominal findings. Patient denies chest pain, shortness of breath or recent hospitalizations. Denies problems with sedation in the past. Past medical history significant for IBS and melanoma. She has a history of DVT and is on eliquis. PAST MEDICAL HISTORY PAST MEDICAL HISTORY Diagnosis Date Anxiety and depression DVT (deep venous thrombosis) (HCC) GERD (gastroesophageal reflux disease) H/O protein C deficiency H/O protein S deficiency History of DVT (deep vein thrombosis) 10/04/2021 Hypothyroid Malignant melanoma (HCC) Melanoma (HCC) Migraines Other specified hypothyroidism 10/04/2021 PAST SURGICAL HISTORY PAST SURGICAL HISTORY Procedure Laterality Date SECTION SINGLE 1997 ESOPHAGOGASTRODUODENOSCOPY TRANSORAL DIAGNOSTIC 03/23/2013 EGD HAND SURGERY HX Left trigger finger release 3 rd finger HYSTEROSCOPY, DIAGNOSTIC (SEPARATE 10/18/2021 IR IVC FILTER PLACEMENT 2010 MALIGNANT MELANOMA - WIDE EXCISION IN ANY AREA AND MUST INCLUDE > 1CM MARGINS & LAYERED CLOSURE TONSILLECTOMY & ADENOIDECTOMY <AGE 12 VAGINAL HYSTERECTOMY 03/08/2022 total CURRENT MEDICATIONS Current Outpatient Medications Medication Sig BIOTIN ORAL Take 1 capsule by mouth once daily. Insulin Syringe-Needle U-100 (BD INSULIN SYRINGE) 1 mL 25 x 1 syrg 1 Each one time a week for 9 doses. ferrous sulfate (IRON) 325 mg (65 mg iron) tablet Take 1 tablet by mouth twice daily with meals. cyanocobalamin 1,000 mcg/mL Once a week IM for 4 weeks, then once a month for 5 months dicyclomine (BENTYL) 20 mg tablet TAKE ONE TABLET THREE TIMES A DAY NEEDED FOR ABDOMINAL PAIN pantoprazole DR (PROTONIX) 40 mg tablet TAKE 1 TABLET BY MOUTH DAILY 30 MINUTES BEFORE A MEAL fluticasone (FLONASE) 50 mcg/actuation nasal spray USE 1 SPRAY IN EACH NOSTRIL ONCE DAILY tiZANidine (ZANAFLEX) 4 mg tablet TAKE 1 TABLET BY MOUTH THREE TIMES A DAY NEEDED FOR PAIN topiramate (TOPAMAX) 100 mg tablet TAKE 1 TABLET BY MOUTH TWICE A DAY levothyroxine (SYNTHROID) 112 mcg tablet Take 1 tablet by mouth once daily. eletriptan (RELPAX) 20 mg tablet Take 1 tablet by mouth as needed for migraine headache (see administration instructions). may repeat in 2 hours if necessary acetaminophen (TYLENOL EXTRA STRENGTH) 500 mg tablet Take 2 tablets by mouth every 6 hours. ibuprofen (MOTRIN) 600 mg tablet Take 1 tablet by mouth every 6 hours. Take with food. polyethylene glycol 3350 (MIRALAX, GLYCOLAX) 17 gram/dose powder Take 17 g by mouth once daily. apixaban (ELIQUIS) 5 mg tab(s) Take 1 tablet by mouth twice daily. ondansetron orally disintegrating (ZOFRAN ODT) 4 mg disintegrating tablet Take 1 tablet by mouth every 8 hours as needed for nausea/vomiting. No current facility-administered medications for this visit. ALLERGIES: Latex, Penicillins, Tape [Adhesive Tape-Silicones], and Toradol [Ketorolac] PERSONAL HISTORY: SOCIAL HISTORY Social History Tobacco Use Smoking status: Former Packs/day: 1.00 Years: 22.00 Pack years: 22.00 Types: Cigarettes Quit date: 03/23/2016 Years since quittin.6 Smokeless tobacco: Never Vaping Use Vaping Use: Never used Substance Use Topics Alcohol use: Not Currently Drug use: Never FAMILY HISTORY: FAMILY HISTORY FAMILY HISTORY Problem Relation Age of Onset Clotting Disorder Father Protein C and S deficiency No Known Problems Mother Clotting Disorder Paternal Grandfather Anesthesia Problems No Family History REVIEW OF SYMPTOMS: The review of systems data was entered by the nurse and reviewed by tn Nursing Notes: Dee Pratt RN 11/02/2022 9:55 AM Signed REVIEW OF SYSTEMS: General: The patient NOTES fatigue, NOTES weight loss, denies weight gain, denies feeling hot, and NOTES feelings of cold. Eyes: The patient denies glaucoma, denies eye injury/surgery, wears glasses or contacts. Ear/Nose/Throat: The patient NOTES allergies, denies hayfever, denies ear infections, and denies bloody noses. Cardiovascular: The patient denies chest pain, denies heart disease, denies high blood pressure,denies cardiac stent, denies prior heart attack, denies irregular heart beat, denies high cholesterol, NOTES poor circulation, denies heart failure, other cardiac issues, NOTES claudication, denies cold feet, denies peripheral arterial stent. Respiratory: The patient denies tuberculosis, denies pneumonia, denies frequent cough, denies pulmonary embolism, denies shortness of breath, and denies coughing up blood. Gastrointestinal: The patient denies difficulty swallowing, NOTES acid reflux, denies ulcers, denies vomiting, denies jaundice/hepatitis, denies gallbladder problems, denies black or tarry stools, NOTES hemorrhoids, denies bleeding from rectum, denies diverticulitis, NOTES constipation, denies diarrhea, denies loss of stool control, and denies hernias. Kidney/Bladder: The patient denies kidney stones, NOTES urine infections, and denies bloody urine. Skin: The patient NOTES a history of skin cancer, denies bleeding/changing moles, and denies a history of skin rash. Neurologic: The patient denies a history of epilepsy/convulsions, NOTES headaches, NOTES head/spinal injuries, and denies stroke/TIA. Psychiatric: The patient denies psychiatric medications, denies depression, and denies voices, denies substance abuse. Endocrine: The patient NOTES thyroid disorders, denies diabetes, and denies hormonal problems. Hematologic: The patient denies a history of bruising, denies bleeding, and denies anemia, NOTES blood clots. Infections: The patient denies a history of measles and mumps, denies rheumatic fever, and denies sexually transmitted diseases. Musculoskeletal: The patient NOTES back pain/injury, denies back problems, NOTES sciatica, denies knee/foot trouble, denies arthritis, or denies gout. When was patient's last Mammogram screening? 03/2022 Last Colonoscopy: None Dee Pratt RN PHYSICAL EXAMINATION: General: The patient is 42 year old female, well nourished, well hydrated in no acute distress. Thepatient is oriented to time, place, and person. VITALS: Blood pressure 98/58, pulse 104, temperature 36.8 C (98.2 F), height 165.1 cm (5' 5), weight 55.7 kg (122 lb 12.8 oz), last menstrual period 02/16/2022, SpO2 100 %. Body mass index is 20.43 kg/m . HEENT: Normal cephalic, ataumatic, pupils are equally round, sclera are anicteric, mucous membranesare moist, oropharynx is clear. Neck has no masses, asymmetry or lymphadenopathy. Respiratory: Clear to auscultation and percussion. Normal respiratory excursion and pattern. Cardiac: Examination is regular rate and rhythm. Normal S1/S2 Abdominal exam: Soft, nontender, with no palpable masses. No hepatosplenomegaly. No palpable hernias. Extremities: no clubbing, cyanosis or edema. No adenopathy. LABORATORY VALUES: As Noted RADIOLOGIC STUDIES: As Noted Assessment IMPRESSION: abdominal discomfort and spasms, anemia, history of IBS PLAN: I have reviewed my findings with the surgeon. Will plan for upper and lower endoscopy. We discussed the risks and benefits of the planned endoscopy. I have informed the patient that complications can occur including failure to complete the endoscopy and perforation. The patient had the opportunity to ask questions concerning the planned endoscopy. My staff has also explained the procedure to the patient in understandable terms and has given the patient printed material concerning the procedure. The patient freely consents to surgery. The patient was offered a surgery/procedure at a [facility] facility. I have counseled the patient regarding the risk of exposure to and/or potential harm posed by the COVID-19 virus with having a surgery/procedure at this time versus the risk of delaying the surgery/procedure. It is not possible to know either the risk of delaying the surgery or procedure or chance of getting an infection with perfect accuracy, but a joint decision was made between the patient and myself to proceed at this time with endoscopy. I plan to use Golytely bowel preparation + 2 days of clear liquids Continue on anticoagulation for endoscopy Reviewed red flag signs and symptoms for which patient should seek immediate medical attention Diagnoses: (R10.9) Abdominal discomfort (primary encounter diagnosis) (D50.9) Iron deficiency anemia, unspecified iron deficiency anemia type Consultation requested by Dr. Denny for an opinion regarding anemia and abdominal pain. My final recommendations will be communicated back to the requesting physician by way of shared Medical record or letter to requesting physician via US mail. Fab Vincent PA-C * Lukasz Woodward MD - 01/16/2023 12:15 PM EDT Images from the original note were not included. HISTORY AND PHYSICAL Suha Calix 1980 REFERRING PHYSICIAN: No ref. provider found CHIEF COMPLAINT: Consult (Colonoscopy consult) HPI: The patient is a 42 year old female referred for endoscopy. Suha notes a history of intermittent generalized abdominal pain and anemia. Pain varies in intensity from mild to severe and sometimes feels like spasms, often accompanied by multiple formed stools. Denies dark stools or blood mixed in stools. States pain seems worse with activity. Denies family history of colon issues Suha has not undergone prior endoscopy. She was seen by PCP for CT of abdomen and pelvis which showed no acute abdominal findings. Patient denies chest pain, shortness of breath or recent hospitalizations. Denies problems with sedation in the past. Past medical history significant for IBS and melanoma. She has a history of DVT and is on eliquis. PAST MEDICAL HISTORY PAST MEDICAL HISTORY Diagnosis Date Anxiety and depression DVT (deep venous thrombosis) (HCC) GERD (gastroesophageal reflux disease) H/O protein C deficiency H/O protein S deficiency History of DVT (deep vein thrombosis) 10/04/2021 Hypothyroid Malignant melanoma (HCC) Melanoma (HCC) Migraines Other specified hypothyroidism 10/04/2021 PAST SURGICAL HISTORY PAST SURGICAL HISTORY Procedure Laterality Date SECTION SINGLE 1997 ESOPHAGOGASTRODUODENOSCOPY TRANSORAL DIAGNOSTIC 03/23/2013 EGD HAND SURGERY HX Left trigger finger release 3 rd finger HYSTEROSCOPY, DIAGNOSTIC (SEPARATE 10/18/2021 IR IVC FILTER PLACEMENT 2010 MALIGNANT MELANOMA - WIDE EXCISION IN ANY AREA AND MUST INCLUDE > 1CM MARGINS & LAYERED CLOSURE TONSILLECTOMY & ADENOIDECTOMY <AGE 11 VAGINAL HYSTERECTOMY 03/08/2022 total CURRENT MEDICATIONS Current Outpatient Medications Medication Sig BIOTIN ORAL Take 1 capsule by mouth once daily. Insulin Syringe-Needle U-100 (BD INSULIN SYRINGE) 1 mL 25 x 1 syrg 1 Each one time a week for 9 doses. ferrous sulfate (IRON) 325 mg (65 mg iron) tablet Take 1 tablet by mouth twice daily with meals. cyanocobalamin 1,000 mcg/mL Once a week IM for 4 weeks, then once a month for 5 months dicyclomine (BENTYL) 20 mg tablet TAKE ONE TABLET THREE TIMES A DAY NEEDED FOR ABDOMINAL PAIN pantoprazole DR (PROTONIX) 40 mg tablet TAKE 1 TABLET BY MOUTH DAILY 30 MINUTES BEFORE A MEAL fluticasone (FLONASE) 50 mcg/actuation nasal spray USE 1 SPRAY IN EACH NOSTRIL ONCE DAILY tiZANidine (ZANAFLEX) 4 mg tablet TAKE 1 TABLET BY MOUTH THREE TIMES A DAY NEEDED FOR PAIN topiramate (TOPAMAX) 100 mg tablet TAKE 1 TABLET BY MOUTH TWICE A DAY levothyroxine (SYNTHROID) 112 mcg tablet Take 1 tablet by mouth once daily. eletriptan (RELPAX) 20 mg tablet Take 1 tablet by mouth as needed for migraine headache (see administration instructions). may repeat in 2 hours if necessary acetaminophen (TYLENOL EXTRA STRENGTH) 500 mg tablet Take 2 tablets by mouth every 6 hours. ibuprofen (MOTRIN) 600 mg tablet Take 1 tablet by mouth every 6 hours. Take with food. polyethylene glycol 3350 (MIRALAX, GLYCOLAX) 17 gram/dose powder Take 17 g by mouth once daily. apixaban (ELIQUIS) 5 mg tab(s) Take 1 tablet by mouth twice daily. ondansetron orally disintegrating (ZOFRAN ODT) 4 mg disintegrating tablet Take 1 tablet by mouth every 8 hours as needed for nausea/vomiting. No current facility-administered medications for this visit. ALLERGIES: Latex, Penicillins, Tape [Adhesive Tape-Silicones], and Toradol [Ketorolac] PERSONAL HISTORY: SOCIAL HISTORY Social History Tobacco Use Smoking status: Former Packs/day: 1.00 Years: 22.00 Pack years: 22.00 Types: Cigarettes Quit date: 03/23/2016 Years since quittin.6 Smokeless tobacco: Never Vaping Use Vaping Use: Never used Substance Use Topics Alcohol use: Not Currently Drug use: Never FAMILY HISTORY: FAMILY HISTORY FAMILY HISTORY Problem Relation Age of Onset Clotting Disorder Father Protein C and S deficiency No Known Problems Mother Clotting Disorder Paternal Grandfather Anesthesia Problems No Family History REVIEW OF SYMPTOMS: The review of systems data was entered by the nurse and reviewed by tn Nursing Notes: Dee Pratt RN 11/02/2022 9:55 AM Signed REVIEW OF SYSTEMS: General: The patient NOTES fatigue, NOTES weight loss, denies weight gain, denies feeling hot, and NOTES feelings of cold. Eyes: The patient denies glaucoma, denies eye injury/surgery, wears glasses or contacts. Ear/Nose/Throat: The patient NOTES allergies, denies hayfever, denies ear infections, and denies bloody noses. Cardiovascular: The patient denies chest pain, denies heart disease, denies high blood pressure,denies cardiac stent, denies prior heart attack, denies irregular heart beat, denies high cholesterol, NOTES poor circulation, denies heart failure, other cardiac issues, NOTES claudication, denies cold feet, denies peripheral arterial stent. Respiratory: The patient denies tuberculosis, denies pneumonia, denies frequent cough, denies pulmonary embolism, denies shortness of breath, and denies coughing up blood. Gastrointestinal: The patient denies difficulty swallowing, NOTES acid reflux, denies ulcers, denies vomiting, denies jaundice/hepatitis, denies gallbladder problems, denies black or tarry stools, NOTES hemorrhoids, denies bleeding from rectum, denies diverticulitis, NOTES constipation, denies diarrhea, denies loss of stool control, and denies hernias. Kidney/Bladder: The patient denies kidney stones, NOTES urine infections, and denies bloody urine. Skin: The patient NOTES a history of skin cancer, denies bleeding/changing moles, and denies a history of skin rash. Neurologic: The patient denies a history of epilepsy/convulsions, NOTES headaches, NOTES head/spinal injuries, and denies stroke/TIA. Psychiatric: The patient denies psychiatric medications, denies depression, and denies voices, denies substance abuse. Endocrine: The patient NOTES thyroid disorders, denies diabetes, and denies hormonal problems. Hematologic: The patient denies a history of bruising, denies bleeding, and denies anemia, NOTES blood clots. Infections: The patient denies a history of measles and mumps, denies rheumatic fever, and denies sexually transmitted diseases. Musculoskeletal: The patient NOTES back pain/injury, denies back problems, NOTES sciatica, denies knee/foot trouble, denies arthritis, or denies gout. When was patient's last Mammogram screening? 03/2022 Last Colonoscopy: None Dee Pratt RN PHYSICAL EXAMINATION: General: The patient is 42 year old female, well nourished, well hydrated in no acute distress. Thepatient is oriented to time, place, and person. VITALS: Blood pressure 98/58, pulse 104, temperature 36.8 C (98.2 F), height 165.1 cm (5' 5), weight 55.7 kg (122 lb 12.8 oz), last menstrual period 02/16/2022, SpO2 100 %. Body mass index is 20.43 kg/m . HEENT: Normal cephalic, ataumatic, pupils are equally round, sclera are anicteric, mucous membranesare moist, oropharynx is clear. Neck has no masses, asymmetry or lymphadenopathy. Respiratory: Clear to auscultation and percussion. Normal respiratory excursion and pattern. Cardiac: Examination is regular rate and rhythm. Normal S1/S2 Abdominal exam: Soft, nontender, with no palpable masses. No hepatosplenomegaly. No palpable hernias. Extremities: no clubbing, cyanosis or edema. No adenopathy. LABORATORY VALUES: As Noted RADIOLOGIC STUDIES: As Noted Assessment IMPRESSION: abdominal discomfort and spasms, anemia, history of IBS PLAN: I have reviewed my findings with the surgeon. Will plan for upper and lower endoscopy. We discussed the risks and benefits of the planned endoscopy. I have informed the patient that complications can occur including failure to complete the endoscopy and perforation. The patient had the opportunity to ask questions concerning the planned endoscopy. My staff has also explained the procedure to the patient in understandable terms and has given the patient printed material concerning the procedure. The patient freely consents to surgery. The patient was offered a surgery/procedure at a [facility] facility. I have counseled the patient regarding the risk of exposure to and/or potential harm posed by the COVID-19 virus with having a surgery/procedure at this time versus the risk of delaying the surgery/procedure. It is not possible to know either the risk of delaying the surgery or procedure or chance of getting an infection with perfect accuracy, but a joint decision was made between the patient and myself to proceed at this time with endoscopy. I plan to use Golytely bowel preparation + 2 days of clear liquids Continue on anticoagulation for endoscopy Reviewed red flag signs and symptoms for which patient should seek immediate medical attention Diagnoses: (R10.9) Abdominal discomfort (primary encounter diagnosis) (D50.9) Iron deficiency anemia, unspecified iron deficiency anemia type Consultation requested by Dr. Denny for an opinion regarding anemia and abdominal pain. My final recommendations will be communicated back to the requesting physician by way of shared Medical record or letter to requesting physician via US mail. Fab Vincent PA-C documented in this encounterPrem[facility]03-07-[facility] Miscellaneous Notes* Telephone Encounter - Mireya Abdul MA - 12/27/2022 9:31 AM EST Pharmacy calls requesting refill: Requested Prescriptions Pending Prescriptions Disp Refills dicyclomine (BENTYL) 20 mg tablet [Pharmacy Med Name: DICYCLOMINE 20 MG TABLET] 270 tablet 1 Sig: TAKE ONE TABLET BY MOUTH THREE TIMES A DAY NEEDED FOR ABDOMINAL PAIN Date of last visit:11/16/2022 Phone #: [phone] (home) [phone] (cell) The patients preferred pharmacy has been captured for this encounter? yes documented in this encounterPrem[facility] Miscellaneous Notes* Telephone Encounter - Alysa Shah MA - 12/26/2022 11:22 AM EST Pharmacy faxes requesting refill: Requested Prescriptions Pending Prescriptions Disp Refills topiramate (TOPAMAX) 100 mg tablet [Pharmacy Med Name: TOPIRAMATE 100 MG TABLET] 180 tablet 1 Sig: TAKE 1 TABLET BY MOUTH TWICE A DAY Date of last visit:11/09/2022 Phone #: [phone] (home) [phone] (cell) The patients preferred pharmacy has been captured for this encounter? yes documented in this encounterPrem[facility]20-2023 Miscellaneous Notes* Telephone Encounter - Rere Larios MA - 12/12/2022 6:36 AM EST Pharmacy faxes requesting refill: Requested Prescriptions Pending Prescriptions Disp Refills dicyclomine (BENTYL) 20 mg tablet [Pharmacy Med Name: DICYCLOMINE 20 MG TABLET] 90 tablet 0 Sig: TAKE ONE TABLET THREE TIMES A DAY NEEDED FOR ABDOMINAL PAIN Date of last visit:11/09/2022 Phone #: [phone] (home) [phone] (cell) The patients preferred pharmacy has been captured for this encounter? yes documented in this encounterPrem[facility]01-27-2023 Instructions* Patient Instructions* Madison Denny PA-C - 11/18/2022 10:19 AM EST The OARRS report has been reviewed and is consistent with the patients medical history and medication intake. Continue with the tizanidine and compounding cream. Continue using TENS unit. Try this on the right hip. Continue with core strengthening and range of motion exercises Continue with the topamax and eletriptan for the migraines. FU in the office in 3 -[address] Emerson. If the hip pain does not improve, we will consider a right SI joint injection. FU with the surgeon regarding the possible stents in the legs. I discussed the patient with Dr. Emerson who agrees with my assessment and plan. All of the above is to improve functionality and quality of life. No evidence of drug abuse or diversion is seen at this time. documented in this encounterPrem[facility]01-27-2023 History of Present illness Narrative* Madison Denny PA-C - 11/18/2022 10:05 AM EST This note was created using [employer]. Subjective Suha Calix is a 42 year old female. The patient primarily being seen for back pain Patient was last seen on: 06/15/22 At that time, the treatment plan was: see notes Current Meds: Tizanidine am/ CC Cream last pm Efficacy: helpful Side effects: sleepy TENS unit: yes How often used: daily Benefit: helpful Physical Therapy: Last UDS: Last injection: 01/25/22-TPI OARRS reviewed At the present time, the patient reports benefit with her present analgesic therapy. She states that they make her sleepy. Since her previous visit, she went to [facility] a couple times and they thinkshe may have celiac disease. She wants to follow up with the surgeon about stents in her legs but this has been postponed due to her family getting COVID, the abdomen issues, and her father in law passing away. She has had pain in the right hip/si joint. INTAKE PAIN ASSESSMENT 11/11/2022 11/18/2022 Are you having pain associated with your visit today? Yes, Provider notified Yes, Provider notified Pain Scales - Verbal (Numeric Rating or Visual Analog Scale) Pain Level 8 6 Pain Location - Back Description Crushing;Pulsating;Sharp;Spasm;Throbbing Tightness;Dull;Throbbing;Stabbing/Not Incision;Sharp Duration Amount of Time - - Duration Units Days - Frequency Continuous Continuous Intervention/Comfort measure Medication;Reposition;Heat Medication;Relaxation;Heat;Pillow support;Positioning Comments - - Pain Assessment - - PAST MEDICAL HISTORY Diagnosis Date Anxiety and depression DVT (deep venous thrombosis) (HCC) GERD (gastroesophageal reflux disease) H/O protein C deficiency H/O protein S deficiency History of DVT (deep vein thrombosis) 10/04/2021 Hypothyroid Malignant melanoma (HCC) Melanoma (HCC) Migraines Other specified hypothyroidism 10/04/2021 PAST SURGICAL HISTORY Procedure Laterality Date SECTION SINGLE 1997 ESOPHAGOGASTRODUODENOSCOPY TRANSORAL DIAGNOSTIC 03/23/2013 EGD HAND SURGERY HX Left trigger finger release 3 rd finger HYSTEROSCOPY, DIAGNOSTIC (SEPARATE 10/18/2021 IR IVC FILTER PLACEMENT 2010 MALIGNANT MELANOMA - WIDE EXCISION IN ANY AREA AND MUST INCLUDE > 1CM MARGINS & LAYERED CLOSURE TONSILLECTOMY & ADENOIDECTOMY <AGE 11 VAGINAL HYSTERECTOMY 03/08/2022 total Social History Tobacco Use Smoking status: Former Packs/day: 1.00 Years: 22.00 Pack years: 22.00 Types: Cigarettes Quit date: 03/23/2016 Years since quittin.6 Smokeless tobacco: Never Vaping Use Vaping Use: Never used Substance Use Topics Alcohol use: Not Currently Drug use: Never HPI Review of Systems Constitutional: Negative for fever and unexpected weight change. Musculoskeletal: +back pain, joint pain/swelling, muscle cramps/weakness, stiffness, arthritis, and leg pain with exertion. Objective BP 109/74 (BP Site: Left Arm, BP Position: Sitting, BP Cuff Size: Regular Adult) Pulse 84 Temp 36.6 C (97.9 F) (Temporal) Resp 18 LMP 02/16/2022 SpO2 98% Physical Exam Vitals and nursing note reviewed. Constitutional: Appearance: Normal appearance. She is well-developed, well-groomed and normal weight. HENT: Head: Normocephalic and atraumatic. Right Ear: Hearing normal. Left Ear: Hearing normal. Eyes: Conjunctiva/sclera: Conjunctivae normal. Musculoskeletal: Comments: She walks with a normal gait. She has tenderness to palpation in the cervical region withspasms noted in the trapezius and paraspinal muscles. Strength is 5/5 throughout. Sensation is intact to light touch throughout. SLR is negative. She has tenderness to palpation over the right SI joint. +FABERs, compression, and distraction test. Neurological: Mental Status: She is alert and oriented to person, place, and time. Psychiatric: Attention and Perception: Attention and perception normal. Mood and Affect: Mood and affect normal. Speech: Speech normal. Behavior: Behavior normal. Behavior is cooperative. Thought Content: Thought content normal. Judgment: Judgment normal. Assessment and Plan ASSESSMENT/PLAN: 1. Neck pain - ICD9: 723.1, ICD10: M54.2 (primary diagnosis) The OARRS report has been reviewed and is consistent with the patients medical history and medication intake. Continue with the tizanidine and compounding cream. Continue using TENS unit. Try this on the right hip. Continue with core strengthening and range of motion exercises Continue with the topamax and eletriptan for the migraines. FU in the office in 3 -[address] Emerson. If the hip pain does not improve, we will consider a right SI joint injection. FU with the surgeon regarding the possible stents in the legs. 2. Right leg pain - ICD9: 729.5, ICD10: M79.604 3. Left leg pain - ICD9: 729.5, ICD10: M79.605 4. Myofascial pain syndrome - ICD9: 729.1, ICD10: M79.18 5. Other migraine without status migrainosus, not intractable - ICD9: 346.80, ICD10: G43.809 Madison Denny PA-C documented in this encounterPremier Health [facility]01-27-2023 Miscellaneous Notes* Telephone Encounter - Rere Larios MA - 11/18/2022 9:32 AM EST Pharmacy faxes requesting refill: Requested Prescriptions Pending Prescriptions Disp Refills ferrous sulfate 325 mg (65 mg iron) tablet [Pharmacy Med Name: FERROUS SULFATE 325 MG TABLET] 60 tablet 2 Sig: TAKE 1 TABLET BY MOUTH TWICE A DAY WITH MEALS Date of last visit:11/09/2022 Phone #: [phone] (home) [phone] (cell) The patients preferred pharmacy has been captured for this encounter? yes documented in this encounterPremier [facility]01-24-2023 Miscellaneous Notes* Telephone Encounter - Libby Harrison MA - 11/15/2022 12:13 PM EST I spoke with Noemi at [facility] and gave her ref#. Patient was called and verified that appointment was at 10:00 am on 11/16/2022 at [facility] * Telephone Encounter - Roxana Leach - 11/15/2022 11:53 AM EST Per automated system at [facility], no auth required for Cpt J1756. Call ref #[id number]. This is the Cpt code we use for OB. Please check this code with [facility]. If a different Cpt code needs checked, let me know. * Telephone Encounter - Jennifer Leach - 11/15/2022 11:35 AM EST Cyndie from [place] scheduling calls and states that she still has not heard of an approval for patients iron infusion scheduled for tomorrow. She would like to know if we had heard about the approval. Please advise, Thanks * Telephone Encounter - Libby Harrison MA - 11/15/2022 9:36 AM EST Spoke with patient and informed at is at 10:00 am 11/16/2021 at [facility]. Did inform patient that it didneed a prior auth and I will be checking to see is infusion was approved. * Telephone Encounter - Lala Mota - 11/15/2022 9:21 AM EST The patient called back and I relayed the message to her. She is asking what time the infusion is tomorrow. I called the office but Antoinette was unable to reach Libby. She also had her new labs redrawn last night. Patient is at work and said OK to leave a detailed message on her machine. Thanks! Lala Mota * Telephone Encounter - Libby Harrison MA - 11/14/2022 3:55 PM EST Left message for patient to call. Patient iron infusion is scheduled for 11/16/2022 at [facility]. Sending to [employer], central scheduling request a prior auth on Iron infusion since it is a medication. Please let me know when you have the Prior auth # so I can call central scheduling with the number * Telephone Encounter - Medhat Denny MD - 11/14/2022 3:37 PM EST IV iron was ordered 11/09, can we follow up on this? Also please let Suha know her celiac panel cannot be interpreted correctly because her IgA levelis low. This is a type of immune cell. I'd like to confirm this with another lab test. I've also placed a hematology consult Medhat Denny MD * Telephone Encounter - Lala Mota - 11/14/2022 3:26 PM EST Patient calls today. Reason for Call: Patient called in to check the status of her iron infusion referral. She is also asking for the results of her celiac labs because she doesn't understand them. Please advise Thank you! [phone] (home) [phone] (cell) Patient last appointment: 11/09/2022 Lala Mota documented in this encounterPremier Health [facility]01-24-2023 Miscellaneous Notes* Telephone Encounter - Lala Mota - 11/15/2022 9:22 AM EST Patient calls requesting refill: Requested Prescriptions Pending Prescriptions Disp Refills dicyclomine (BENTYL) 20 mg tablet Patient does not see GI until 01/16/23. Thank you! Date of last visit:11/14/2022 Phone #: [phone] (home) [phone] (cell) The patients preferred pharmacy has been captured for this encounter? yes documented in this encounterPremier Health [facility]01-18-2023 NoteHNO ID: [id number] Author: Medhat Denny MD Service: ? Author Type: Physician Type: Progress Notes Filed: 11/09/2022 3:46 PM Note Text: [facility] PROGRESS NOTE Encounter Date: 11/09/2022 Chief Complaint: Back Pain and Fatigue Back pain follow up - took medrol and on the last day of pills felt terribly sensitive skin, flushed skin; has never had this with medrol before, and on the last day too - it helped a little with back, still having trouble getting up on bed and moving leg out PO iron is causing terrible constipation; taking once a day and miralax and even with this has terribly painful PO Colonoscopy January 16 Can't gain weight even though she's drinking protein shakes and powder Review of Systems Constitutional: Positive for malaise/fatigue. Musculoskeletal: Positive for back pain and joint pain. Neurological: Positive for weakness. PAST MEDICAL HISTORY Diagnosis Date Anxiety and depression DVT (deep venous thrombosis) (HCC) GERD (gastroesophageal reflux disease) H/O protein C deficiency H/O protein S deficiency History of DVT (deep vein thrombosis) 10/04/2021 Hypothyroid Malignant melanoma (HCC) Melanoma (HCC) Migraines Other specified hypothyroidism 10/04/2021 ALLERGIES Allergen Reactions Latex Rash Penicillins Anaphylaxis Tape [Adhesive Tape* Rash Toradol [Ketorolac] Swelling Tongue swelling Current Outpatient Medications on File Prior to Visit Medication Sig methocarbamol (ROBAXIN) 500 mg tablet Take 1 tablet by mouth three times daily for 14 days. BIOTIN ORAL Take 1 capsule by mouth once daily. Insulin Syringe-Needle U-100 (BD INSULIN SYRINGE) 1 mL 25 x 1 syrg 1 Each one time a week for 9 doses. ferrous sulfate (IRON) 325 mg (65 mg iron) tablet Take 1 tablet by mouth twice daily with meals. cyanocobalamin 1,000 mcg/mL Once a week IM for 4 weeks, then once a month for 5 months dicyclomine (BENTYL) 20 mg tablet TAKE ONE TABLET THREE TIMES A DAY NEEDED FOR ABDOMINAL PAIN pantoprazole DR (PROTONIX) 40 mg tablet TAKE 1 TABLET BY MOUTH DAILY 30 MINUTES BEFORE A MEAL fluticasone (FLONASE) 50 mcg/actuation nasal spray USE 1 SPRAY IN EACH NOSTRIL ONCE DAILY topiramate (TOPAMAX) 100 mg tablet TAKE 1 TABLET BY MOUTH TWICE A DAY levothyroxine (SYNTHROID) 112 mcg tablet Take 1 tablet by mouth once daily. eletriptan (RELPAX) 20 mg tablet Take 1 tablet by mouth as needed for migraine headache (see administration instructions). may repeat in 2 hours if necessary acetaminophen (TYLENOL EXTRA STRENGTH) 500 mg tablet Take 2 tablets by mouth every 6 hours. ibuprofen (MOTRIN) 600 mg tablet Take 1 tablet by mouth every 6 hours. Take with food. polyethylene glycol 3350 (MIRALAX, GLYCOLAX) 17 gram/dose powder Take 17 g by mouth once daily. apixaban (ELIQUIS) 5 mg tab(s) Take 1 tablet by mouth twice daily. ondansetron orally disintegrating (ZOFRAN ODT) 4 mg disintegrating tablet Take 1 tablet by mouth every 8 hours as needed for nausea/vomiting. methylPREDNISolone (MEDROL) 4 mg 3 tablets with breakfast and 2 tablets with lunch x 7 days (Patient not taking: Reported on 11/09/2022) No current facility-administered medications on file prior to visit. Social History Tobacco Use Smoking status: Former Packs/day: 1.00 Years: 22.00 Pack years: 22.00 Types: Cigarettes Quit date: 03/23/2016 Years since quittin.6 Smokeless tobacco: Never Vaping Use Vaping Use: Never used Substance Use Topics Alcohol use: Not Currently Drug use: Never OBJECTIVE: Vital Signs: BP 115/71 (BP Site: Left Arm, BP Position: Sitting, BP Cuff Size: Regular Adult) Pulse 80 Temp 36.7 ?C (98.1 ?F) (Oral) Resp 20 Ht 165.1 cm (5' 5) Wt 55.9 kg (123 lb 3.2 oz) LMP 02/16/2022 BMI 20.50 kg/m? Physical Exam Vitals and nursing note reviewed. Constitutional: General: She is not in acute distress. Appearance: She is not toxic-appearing. Musculoskeletal: Lumbar back: Tenderness present. Positive right straight leg raise test. Negative left straight leg raise test. Right hip: Tenderness present. Decreased range of motion. Legs: Neurological: Mental Status: She is alert. ASSESSMENT/PLAN: 1. Right hip pain - ICD9: 719.45, ICD10: M25.551 (primary diagnosis) - check hip xray - XR HIP GENERAL 3V PELV/AP/LAT RIGHT 2. 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 Other iron deficiency anemia - ICD9: 280.8, ICD10: D50.8 - IRON SUCROSE 100MG IN 100ML NS IVPB Medical Decision Making: Problems: Low: Acute, uncomplicated illness or injury Moderate: 1+ chronic illnesses with change Data: Unique test(s) ordered: 1 Risk: (more content not included)...[facility]01-18-2023 Nurse Note* RT Ezra(R) - 11/09/2022 3:11 PM EST 3 VIEW RIGHT HIP W/ PELVIS x-ray performed @ [facility] RT Ezra(R) [facility] History of Present illness Narrative* Medhat Denny MD - 11/09/2022 2:41 PM EST Images from the original note were not included. [facility] PROGRESS NOTE Encounter Date: 11/09/2022 Chief Complaint: Back Pain and Fatigue Back pain follow up - took medrol and on the last day of pills felt terribly sensitive skin, flushed skin; has never had this with medrol before, and on the last day too - it helped a little with back, still having trouble getting up on bed and moving leg out PO iron is causing terrible constipation; taking once a day and miralax and even with this has terribly painful PO Colonoscopy January 16 Can't gain weight even though she's drinking protein shakes and powder Review of Systems Constitutional: Positive for malaise/fatigue. Musculoskeletal: Positive for back pain and joint pain. Neurological: Positive for weakness. PAST MEDICAL HISTORY Diagnosis Date Anxiety and depression DVT (deep venous thrombosis) (HCC) GERD (gastroesophageal reflux disease) H/O protein C deficiency H/O protein S deficiency History of DVT (deep vein thrombosis) 10/04/2021 Hypothyroid Malignant melanoma (HCC) Melanoma (HCC) Migraines Other specified hypothyroidism 10/04/2021 ALLERGIES Allergen Reactions Latex Rash Penicillins Anaphylaxis Tape [Adhesive Tape* Rash Toradol [Ketorolac] Swelling Tongue swelling Current Outpatient Medications on File Prior to Visit Medication Sig methocarbamol (ROBAXIN) 500 mg tablet Take 1 tablet by mouth three times daily for 14 days. BIOTIN ORAL Take 1 capsule by mouth once daily. Insulin Syringe-Needle U-100 (BD INSULIN SYRINGE) 1 mL 25 x 1 syrg 1 Each one time a week for 9 doses. ferrous sulfate (IRON) 325 mg (65 mg iron) tablet Take 1 tablet by mouth twice daily with meals. cyanocobalamin 1,000 mcg/mL Once a week IM for 4 weeks, then once a month for 5 months dicyclomine (BENTYL) 20 mg tablet TAKE ONE TABLET THREE TIMES A DAY NEEDED FOR ABDOMINAL PAIN pantoprazole DR (PROTONIX) 40 mg tablet TAKE 1 TABLET BY MOUTH DAILY 30 MINUTES BEFORE A MEAL fluticasone (FLONASE) 50 mcg/actuation nasal spray USE 1 SPRAY IN EACH NOSTRIL ONCE DAILY topiramate (TOPAMAX) 100 mg tablet TAKE 1 TABLET BY MOUTH TWICE A DAY levothyroxine (SYNTHROID) 112 mcg tablet Take 1 tablet by mouth once daily. eletriptan (RELPAX) 20 mg tablet Take 1 tablet by mouth as needed for migraine headache (see administration instructions). may repeat in 2 hours if necessary acetaminophen (TYLENOL EXTRA STRENGTH) 500 mg tablet Take 2 tablets by mouth every 6 hours. ibuprofen (MOTRIN) 600 mg tablet Take 1 tablet by mouth every 6 hours. Take with food. polyethylene glycol 3350 (MIRALAX, GLYCOLAX) 17 gram/dose powder Take 17 g by mouth once daily. apixaban (ELIQUIS) 5 mg tab(s) Take 1 tablet by mouth twice daily. ondansetron orally disintegrating (ZOFRAN ODT) 4 mg disintegrating tablet Take 1 tablet by mouth every 8 hours as needed for nausea/vomiting. methylPREDNISolone (MEDROL) 4 mg 3 tablets with breakfast and 2 tablets with lunch x 7 days (Patient not taking: Reported on 11/09/2022) No current facility-administered medications on file prior to visit. Social History Tobacco Use Smoking status: Former Packs/day: 1.00 Years: 22.00 Pack years: 22.00 Types: Cigarettes Quit date: 03/23/2016 Years since quittin.6 Smokeless tobacco: Never Vaping Use Vaping Use: Never used Substance Use Topics Alcohol use: Not Currently Drug use: Never OBJECTIVE: Vital Signs: BP 115/71 (BP Site: Left Arm, BP Position: Sitting, BP Cuff Size: Regular Adult) Pulse 80 Temp 36.7 C (98.1 F) (Oral) Resp 20 Ht 165.1 cm (5' 5) Wt 55.9 kg (123 lb 3.2 oz) LMP 02/16/2022 BMI 20.50 kg/m Physical Exam Vitals and nursing note reviewed. Constitutional: General: She is not in acute distress. Appearance: She is not toxic-appearing. Musculoskeletal: Lumbar back: Tenderness present. Positive right straight leg raise test. Negative left straight legraise test. Right hip: Tenderness present. Decreased range of motion. Legs: Neurological: Mental Status: She is alert. ASSESSMENT/PLAN: 1. Right hip pain - ICD9: 719.45, ICD10: M25.551 (primary diagnosis) - check hip xray - XR HIP GENERAL 3V PELV/AP/LAT RIGHT 2. 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 Other iron deficiency anemia - ICD9: 280.8, ICD10: D50.8 - IRON SUCROSE 100MG IN 100ML NS IVPB Medical Decision Making: Problems: Low: Acute, uncomplicated illness or injury Moderate: 1+ chronic illnesses with change Data: Unique test(s) ordered: 1 Risk: Moderate: Drug management Medical Decision Making Level: 4 - Moderate Electronically signed and closed, Medhat Denny MD documented in this encounterPrem[facility]23 NoteHNO ID: [id number] Author: Raymond Cardenas APRN.[employer]AM MEMBER Service: ? Author Type: Nurse Practitioner Type: Progress Notes Filed: 11/04/2022 9:13 AM Note Text: Suha Calix is a 42 year old female here today acutely because of having: Pain Patient states a week ago she started having right lower back pain that radiates down into her right buttocks and down the front of her leg. Patient is able to lift the leg the forward and backwards but unable to abduct it away from the body. She denies any injury or repetitive motion that could cause the problem. Is taking ibuprofen even though she is on Eliquis and should not be taking. States the medication has not helped with the pain. Review of Systems Respiratory: Negative for cough, chest tightness, shortness of breath and wheezing. Cardiovascular: Negative for chest pain, palpitations and leg swelling. Gastrointestinal: Negative for abdominal pain, constipation and diarrhea. Genitourinary: Negative for difficulty urinating. Musculoskeletal: Positive for back pain. BP 106/70 Pulse 91 Temp 36.6 ?C (97.8 ?F) (Oral) Wt 55.3 kg (122 lb) LMP 02/16/2022 SpO2 100% BMI 20.30 kg/m? BMI 20.30 kg/(m2) ALLERGIES Allergen Reactions Latex Rash Penicillins Anaphylaxis Tape [Adhesive Tape* Rash Toradol [Ketorolac] Swelling Tongue swelling Physical Exam Constitutional: Appearance: Normal appearance. Cardiovascular: Rate and Rhythm: Normal rate and regular rhythm. Heart sounds: Normal heart sounds. No murmur heard. Pulmonary: Effort: Pulmonary effort is normal. No respiratory distress. Breath sounds: Normal breath sounds. No wheezing. Musculoskeletal: General: Tenderness (pain with palpation over right SI joint radiating down the right leg. unable to lift leg to the side.) present. Skin: General: Skin is warm and dry. Neurological: Mental Status: She is alert and oriented to person, place, and time. ASSESSMENT/PLAN: 1. Acute right-sided low back pain with right-sided sciatica - ICD9: 724.2, 724.3, ICD10: M54.41 - Ice for localized tenderness - Medrol dose pack - Muscle relaxant- see orders - METHYLPREDNISOLONE 4 MG TABLET - METHOCARBAMOL 500 MG TABLET Raymond Cardenas CNP Follow Up: Return if symptoms worsen or fail to improve. Voice recognition software utilized. Minor grammatical and/or spelling errors may exist. Portions of this note have been entered by ancillary staff. I have reviewed and when necessary edited, so that they are an adequate record of my encounter with this patient.[facility]01-[facility] History of Present illness Narrative* Raymond Cardenas, REDD.DOLORES - 11/04/2022 9:09 AM EST Suha Calix is a 42 year old female here today acutely because of having: Pain Patient states a week ago she started having right lower back pain that radiates down into her right buttocks and down the front of her leg. Patient is able to lift the leg the forward and backwards but unable to abduct it away from the body. She denies any injury or repetitive motion that could cause the problem. Is taking ibuprofen even though she is on Eliquis and should not be taking. States the medication has not helped with the pain. Review of Systems Respiratory: Negative for cough, chest tightness, shortness of breath and wheezing. Cardiovascular: Negative for chest pain, palpitations and leg swelling. Gastrointestinal: Negative for abdominal pain, constipation and diarrhea. Genitourinary: Negative for difficulty urinating. Musculoskeletal: Positive for back pain. BP 106/70 Pulse 91 Temp 36.6 C (97.8 F) (Oral) Wt 55.3 kg (122 lb) LMP 02/16/2022 SpO2 100% BMI 20.30 kg/m BMI 20.30 kg/(m^2) ALLERGIES Allergen Reactions Latex Rash Penicillins Anaphylaxis Tape [Adhesive Tape* Rash Toradol [Ketorolac] Swelling Tongue swelling Physical Exam Constitutional: Appearance: Normal appearance. Cardiovascular: Rate and Rhythm: Normal rate and regular rhythm. Heart sounds: Normal heart sounds. No murmur heard. Pulmonary: Effort: Pulmonary effort is normal. No respiratory distress. Breath sounds: Normal breath sounds. No wheezing. Musculoskeletal: General: Tenderness (pain with palpation over right SI joint radiating down the right leg. unable to lift leg to the side.) present. Skin: General: Skin is warm and dry. Neurological: Mental Status: She is alert and oriented to person, place, and time. ASSESSMENT/PLAN: 1. Acute right-sided low back pain with right-sided sciatica - ICD9: 724.2, 724.3, ICD10: M54.41 - Ice for localized tenderness - Medrol dose pack - Muscle relaxant- see orders - METHYLPREDNISOLONE 4 MG TABLET - METHOCARBAMOL 500 MG TABLET Raymond Cardenas CNP Follow Up: Return if symptoms worsen or fail to improve. Voice recognition software utilized. Minor grammatical and/or spelling errors may exist. Portions of this note have been entered by ancillary staff. I have reviewed and when necessary edited, so that they are an adequate record of my encounter with this patient. documented in this encounterPrem[facility]23 NoteHNO ID: [id number] Author: Fab Vincent PA-C Service: ? Author Type: Physician Toggle Press Operator Type: Progress Notes Filed: 11/10/2022 2:52 PM Note Text: HISTORY AND PHYSICAL Suha Calix 1980 REFERRING PHYSICIAN: No ref. provider found CHIEF COMPLAINT: Consult (Colonoscopy consult) HPI: The patient is a 42 year old female referred for endoscopy. Suha notes a history of intermittent generalized abdominal pain and anemia. Pain varies in intensity from mild to severe and sometimes feels like spasms, often accompanied by multiple formed stools. Denies dark stools or blood mixed in stools. States pain seems worse with activity. Denies family history of colon issues Suha has not undergone prior endoscopy. She was seen by PCP for CT of abdomen and pelvis which showed no acute abdominal findings. Patient denies chest pain, shortness of breath or recent hospitalizations. Denies problems with sedation in the past. Past medical history significant for IBS and melanoma. She has a history of DVT and is on eliquis. PAST MEDICAL HISTORY Diagnosis Date Anxiety and depression DVT (deep venous thrombosis) (HCC) GERD (gastroesophageal reflux disease) H/O protein C deficiency H/O protein S deficiency History of DVT (deep vein thrombosis) 10/04/2021 Hypothyroid Malignant melanoma (HCC) Melanoma (HCC) Migraines Other specified hypothyroidism 10/04/2021 PAST SURGICAL HISTORY Procedure Laterality Date SECTION SINGLE 1997 ESOPHAGOGASTRODUODENOSCOPY TRANSORAL DIAGNOSTIC 03/23/2013 EGD HAND SURGERY HX Left trigger finger release 3 rd finger HYSTEROSCOPY, DIAGNOSTIC (SEPARATE 10/18/2021 IR IVC FILTER PLACEMENT 2010 MALIGNANT MELANOMA - WIDE EXCISION IN ANY AREA AND MUST INCLUDE > 1CM MARGINS AND LAYERED CLOSURE TONSILLECTOMY AND ADENOIDECTOMY VAGINAL HYSTERECTOMY 03/08/2022 total Current Outpatient Medications Medication Sig BIOTIN ORAL Take 1 capsule by mouth once daily. Insulin Syringe-Needle U-100 (BD INSULIN SYRINGE) 1 mL 25 x 1 syrg 1 Each one time a week for 9 doses. ferrous sulfate (IRON) 325 mg (65 mg iron) tablet Take 1 tablet by mouth twice daily with meals. cyanocobalamin 1,000 mcg/mL Once a week IM for 4 weeks, then once a month for 5 months dicyclomine (BENTYL) 20 mg tablet TAKE ONE TABLET THREE TIMES A DAY NEEDED FOR ABDOMINAL PAIN pantoprazole DR (PROTONIX) 40 mg tablet TAKE 1 TABLET BY MOUTH DAILY 30 MINUTES BEFORE A MEAL fluticasone (FLONASE) 50 mcg/actuation nasal spray USE 1 SPRAY IN EACH NOSTRIL ONCE DAILY tiZANidine (ZANAFLEX) 4 mg tablet TAKE 1 TABLET BY MOUTH THREE TIMES A DAY NEEDED FOR PAIN topiramate (TOPAMAX) 100 mg tablet TAKE 1 TABLET BY MOUTH TWICE A DAY levothyroxine (SYNTHROID) 112 mcg tablet Take 1 tablet by mouth once daily. eletriptan (RELPAX) 20 mg tablet Take 1 tablet by mouth as needed for migraine headache (see administration instructions). may repeat in 2 hours if necessary acetaminophen (TYLENOL EXTRA STRENGTH) 500 mg tablet Take 2 tablets by mouth every 6 hours. ibuprofen (MOTRIN) 600 mg tablet Take 1 tablet by mouth every 6 hours. Take with food. polyethylene glycol 3350 (MIRALAX, GLYCOLAX) 17 gram/dose powder Take 17 g by mouth once daily. apixaban (ELIQUIS) 5 mg tab(s) Take 1 tablet by mouth twice daily. ondansetron orally disintegrating (ZOFRAN ODT) 4 mg disintegrating tablet Take 1 tablet by mouth every 8 hours as needed for nausea/vomiting. No current facility-administered medications for this visit. ALLERGIES: Latex, Penicillins, Tape [Adhesive Tape-Silicones], and Toradol [Ketorolac] PERSONAL HISTORY: Social History Tobacco Use Smoking status: Former Packs/day: 1.00 Years: 22.00 Pack years: 22.00 Types: Cigarettes Quit date: 03/23/2016 Years since quittin.6 Smokeless tobacco: Never Vaping Use Vaping Use: Never used Substance Use Topics Alcohol use: Not Currently Drug use: Never FAMILY HISTORY: FAMILY HISTORY Problem Relation Age of Onset Clotting Disorder Father Protein C and S deficiency No Known Problems Mother Clotting Disorder Paternal Grandfather Anesthesia Problems No Family History REVIEW OF SYMPTOMS: The review of systems data was entered by the nurse and reviewed by tn Nursing Notes: Dee Pratt RN 11/02/2022 9:55 AM Signed REVIEW OF SYSTEMS: General: The patient NOTES fatigue, NOTES weight loss, denies weight gain, denies feeling hot, and NOTES feelings of cold. Eyes: The patient denies glaucoma, denies eye injury/surgery, wears glasses or contacts. Ear/Nose/Throat: The patient NOTES allergies, denies hayfever, denies ear infections, and denies bloody noses. Cardiovascular: The patient denies chest pain, denies heart disease, denies high blood pressure,denies cardiac stent, denies prior heart attack, denies irregular heart beat, denies high cholesterol, NOTES poor circulation, denies heart failu (more content not included)...[facility]01[facility] Nurse Note* Dee Pratt RN - 11/02/2022 9:52 AM EST REVIEW OF SYSTEMS: General: The patient NOTES fatigue, NOTES weight loss, denies weight gain, denies feeling hot, and NOTES feelings of cold. Eyes: The patient denies glaucoma, denies eye injury/surgery, wears glasses or contacts. Ear/Nose/Throat: The patient NOTES allergies, denies hayfever, denies ear infections, and denies bloody noses. Cardiovascular: The patient denies chest pain, denies heart disease, denies high blood pressure,denies cardiac stent, denies prior heart attack, denies irregular heart beat, denies high cholesterol, NOTES poor circulation, denies heart failure, other cardiac issues, NOTES claudication, denies cold feet, denies peripheral arterial stent. Respiratory: The patient denies tuberculosis, denies pneumonia, denies frequent cough, denies pulmonary embolism, denies shortness of breath, and denies coughing up blood. Gastrointestinal: The patient denies difficulty swallowing, NOTES acid reflux, denies ulcers, denies vomiting, denies jaundice/hepatitis, denies gallbladder problems, denies black or tarry stools, NOTES hemorrhoids, denies bleeding from rectum, denies diverticulitis, NOTES constipation, denies diarrhea, denies loss of stool control, and denies hernias. Kidney/Bladder: The patient denies kidney stones, NOTES urine infections, and denies bloody urine. Skin: The patient NOTES a history of skin cancer, denies bleeding/changing moles, and denies a history of skin rash. Neurologic: The patient denies a history of epilepsy/convulsions, NOTES headaches, NOTES head/spinal injuries, and denies stroke/TIA. Psychiatric: The patient denies psychiatric medications, denies depression, and denies voices, denies substance abuse. Endocrine: The patient NOTES thyroid disorders, denies diabetes, and denies hormonal problems. Hematologic: The patient denies a history of bruising, denies bleeding, and denies anemia, NOTES blood clots. Infections: The patient denies a history of measles and mumps, denies rheumatic fever, and denies sexually transmitted diseases. Musculoskeletal: The patient NOTES back pain/injury, denies back problems, NOTES sciatica, denies knee/foot trouble, denies arthritis, or denies gout. When was patient's last Mammogram screening? 03/2022 Last Colonoscopy: None Dee Pratt RN documented in [place] encounterJoshua [place] [address]-[place]2023 History of Present illness Narrative* Fab Vincent PA-C - 11/02/2022 8:53 AM EST HISTORY AND PHYSICAL Suha Calix 1980 REFERRING PHYSICIAN: No ref. provider found CHIEF COMPLAINT: Consult (Colonoscopy consult) HPI: The patient is a 42 year old female referred for endoscopy. Suha notes a history of intermittent generalized abdominal pain and anemia. Pain varies in intensity from mild to severe and sometimes feels like spasms, often accompanied by multiple formed stools. Denies dark stools or blood mixed in stools. States pain seems worse with activity. Denies family history of colon issues Suha has not undergone prior endoscopy. She was seen by PCP for CT of abdomen and pelvis which showed no acute abdominal findings. Patient denies chest pain, shortness of breath or recent hospitalizations. Denies problems with sedation in the past. Past medical history significant for IBS and melanoma. She has a history of DVT and is on eliquis. PAST MEDICAL HISTORY Diagnosis Date Anxiety and depression DVT (deep venous thrombosis) (HCC) GERD (gastroesophageal reflux disease) H/O protein C deficiency H/O protein S deficiency History of DVT (deep vein thrombosis) 10/04/2021 Hypothyroid Malignant melanoma (HCC) Melanoma (HCC) Migraines Other specified hypothyroidism 10/04/2021 PAST SURGICAL HISTORY Procedure Laterality Date SECTION SINGLE 1997 ESOPHAGOGASTRODUODENOSCOPY TRANSORAL DIAGNOSTIC 03/23/2013 EGD HAND SURGERY HX Left trigger finger release 3 rd finger HYSTEROSCOPY, DIAGNOSTIC (SEPARATE 10/18/2021 IR IVC FILTER PLACEMENT 2010 MALIGNANT MELANOMA - WIDE EXCISION IN ANY AREA AND MUST INCLUDE > 1CM MARGINS & LAYERED CLOSURE TONSILLECTOMY & ADENOIDECTOMY <AGE 12 VAGINAL HYSTERECTOMY 03/08/2022 total Current Outpatient Medications Medication Sig BIOTIN ORAL Take 1 capsule by mouth once daily. Insulin Syringe-Needle U-100 (BD INSULIN SYRINGE) 1 mL 25 x 1 syrg 1 Each one time a week for 9 doses. ferrous sulfate (IRON) 325 mg (65 mg iron) tablet Take 1 tablet by mouth twice daily with meals. cyanocobalamin 1,000 mcg/mL Once a week IM for 4 weeks, then once a month for 5 months dicyclomine (BENTYL) 20 mg tablet TAKE ONE TABLET THREE TIMES A DAY NEEDED FOR ABDOMINAL PAIN pantoprazole DR (PROTONIX) 40 mg tablet TAKE 1 TABLET BY MOUTH DAILY 30 MINUTES BEFORE A MEAL fluticasone (FLONASE) 50 mcg/actuation nasal spray USE 1 SPRAY IN EACH NOSTRIL ONCE DAILY tiZANidine (ZANAFLEX) 4 mg tablet TAKE 1 TABLET BY MOUTH THREE TIMES A DAY NEEDED FOR PAIN topiramate (TOPAMAX) 100 mg tablet TAKE 1 TABLET BY MOUTH TWICE A DAY levothyroxine (SYNTHROID) 112 mcg tablet Take 1 tablet by mouth once daily. eletriptan (RELPAX) 20 mg tablet Take 1 tablet by mouth as needed for migraine headache (see administration instructions). may repeat in 2 hours if necessary acetaminophen (TYLENOL EXTRA STRENGTH) 500 mg tablet Take 2 tablets by mouth every 6 hours. ibuprofen (MOTRIN) 600 mg tablet Take 1 tablet by mouth every 6 hours. Take with food. polyethylene glycol 3350 (MIRALAX, GLYCOLAX) 17 gram/dose powder Take 17 g by mouth once daily. apixaban (ELIQUIS) 5 mg tab(s) Take 1 tablet by mouth twice daily. ondansetron orally disintegrating (ZOFRAN ODT) 4 mg disintegrating tablet Take 1 tablet by mouth every 8 hours as needed for nausea/vomiting. No current facility-administered medications for this visit. ALLERGIES: Latex, Penicillins, Tape [Adhesive Tape-Silicones], and Toradol [Ketorolac] PERSONAL HISTORY: Social History Tobacco Use Smoking status: Former Packs/day: 1.00 Years: 22.00 Pack years: 22.00 Types: Cigarettes Quit date: 03/23/2016 Years since quittin.6 Smokeless tobacco: Never Vaping Use Vaping Use: Never used Substance Use Topics Alcohol use: Not Currently Drug use: Never FAMILY HISTORY: FAMILY HISTORY Problem Relation Age of Onset Clotting Disorder Father Protein C and S deficiency No Known Problems Mother Clotting Disorder Paternal Grandfather Anesthesia Problems No Family History REVIEW OF SYMPTOMS: The review of systems data was entered by the nurse and reviewed by tn Nursing Notes: Dee Pratt RN 11/02/2022 9:55 AM Signed REVIEW OF SYSTEMS: General: The patient NOTES fatigue, NOTES weight loss, denies weight gain, denies feeling hot, and NOTES feelings of cold. Eyes: The patient denies glaucoma, denies eye injury/surgery, wears glasses or contacts. Ear/Nose/Throat: The patient NOTES allergies, denies hayfever, denies ear infections, and denies bloody noses. Cardiovascular: The patient denies chest pain, denies heart disease, denies high blood pressure,denies cardiac stent, denies prior heart attack, denies irregular heart beat, denies high cholesterol, NOTES poor circulation, denies heart failure, other cardiac issues, NOTES claudication, denies cold feet, denies peripheral arterial stent. Respiratory: The patient denies tuberculosis, denies pneumonia, denies frequent cough, denies pulmonary embolism, denies shortness of breath, and denies coughing up blood. Gastrointestinal: The patient denies difficulty swallowing, NOTES acid reflux, denies ulcers, denies vomiting, denies jaundice/hepatitis, denies gallbladder problems, denies black or tarry stools, NOTES hemorrhoids, denies bleeding from rectum, denies diverticulitis, NOTES constipation, denies diarrhea, denies loss of stool control, and denies hernias. Kidney/Bladder: The patient denies kidney stones, NOTES urine infections, and denies bloody urine. Skin: The patient NOTES a history of skin cancer, denies bleeding/changing moles, and denies a history of skin rash. Neurologic: The patient denies a history of epilepsy/convulsions, NOTES headaches, NOTES head/spinal injuries, and denies stroke/TIA. Psychiatric: The patient denies psychiatric medications, denies depression, and denies voices, denies substance abuse. Endocrine: The patient NOTES thyroid disorders, denies diabetes, and denies hormonal problems. Hematologic: The patient denies a history of bruising, denies bleeding, and denies anemia, NOTES blood clots. Infections: The patient denies a history of measles and mumps, denies rheumatic fever, and denies sexually transmitted diseases. Musculoskeletal: The patient NOTES back pain/injury, denies back problems, NOTES sciatica, denies knee/foot trouble, denies arthritis, or denies gout. When was patient's last Mammogram screening? 03/2022 Last Colonoscopy: None Dee Pratt RN PHYSICAL EXAMINATION: General: The patient is 42 year old female, well nourished, well hydrated in no acute distress. Thepatient is oriented to time, place, and person. VITALS: Blood pressure 98/58, pulse 104, temperature 36.8 C (98.2 F), height 165.1 cm (5' 5), weight 55.7 kg (122 lb 12.8 oz), last menstrual period 02/16/2022, SpO2 100 %. Body mass index is 20.43 kg/m . HEENT: Normal cephalic, ataumatic, pupils are equally round, sclera are anicteric, mucous membranesare moist, oropharynx is clear. Neck has no masses, asymmetry or lymphadenopathy. Respiratory: Clear to auscultation and percussion. Normal respiratory excursion and pattern. Cardiac: Examination is regular rate and rhythm. Normal S1/S2 Abdominal exam: Soft, nontender, with no palpable masses. No hepatosplenomegaly. No palpable hernias. Extremities: no clubbing, cyanosis or edema. No adenopathy. LABORATORY VALUES: As Noted RADIOLOGIC STUDIES: As Noted Assessment IMPRESSION: abdominal discomfort and spasms, anemia, history of IBS PLAN: I have reviewed my findings with the surgeon. Will plan for upper and lower endoscopy. We discussed the risks and benefits of the planned endoscopy. I have informed the patient that complications can occur including failure to complete the endoscopy and perforation. The patient had the opportunity to ask questions concerning the planned endoscopy. My staff has also explained the procedure to the patient in understandable terms and has given the patient printed material concerning the procedure. The patient freely consents to surgery. The patient was offered a surgery/procedure at a [facility] facility. I have counseled the patient regarding the risk of exposure to and/or potential harm posed by the COVID-19 virus with having a surgery/procedure at this time versus the risk of delaying the surgery/procedure. It is not possible to know either the risk of delaying the surgery or procedure or chance of getting an infection with perfect accuracy, but a joint decision was made between the patient and myself to proceed at this time with endoscopy. I plan to use Golytely bowel preparation + 2 days of clear liquids Continue on anticoagulation for endoscopy Reviewed red flag signs and symptoms for which patient should seek immediate medical attention Diagnoses: (R10.9) Abdominal discomfort (primary encounter diagnosis) (D50.9) Iron deficiency anemia, unspecified iron deficiency anemia type Consultation requested by Dr. Denny for an opinion regarding anemia and abdominal pain. My final recommendations will be communicated back to the requesting physician by way of shared Medical record or letter to requesting physician via US mail. Fab Vincent PA-C documented in this encounterPrem[facility]01-09-2023 Miscellaneous Notes* Telephone Encounter - Libby Harrison MA - 10/31/2022 3:05 PM EST Patient was informed and had no questions * Telephone Encounter - Medhat Denny MD - 10/31/2022 6:49 AM EST Syringes sent Medhat Denny MD * Telephone Encounter - Tati Enciso - 10/28/2022 8:57 AM EST Suha got an order for Vitamin B-12 but no syringes were called in so she cannot use the medication. Can an order for syringes be sent to [facility]? documented in this encounterPremier [facility]01-03-2023 Miscellaneous Notes* Telephone Encounter - Meseret Flores MA - 10/25/2022 1:23 PM EST Mailbox is full. Will send mychart. * Telephone Encounter - Meseret Flores MA - 10/25/2022 1:20 PM EST ----- Message from Poli Gonzalez MA sent at 10/25/2022 8:36 AM EST ----- ----- Message ----- From: Bebeto Soliman APRN.[employer] TEAM MEMBER Sent: 10/22/2022 12:12 PM EST To: [facility] Let patient know her thyroid level is normal. Her iron level is very low which is causing her anemia. Vitamin B12 also on low side. I am starting her on iron she will take twice a day with food-will cause constipation so she will need to take a daily stool softener or miralax daily. I want her to do vitamin B12 injections once a week for 1 month, then just once a month after that. Repeat labs in 6 weeks. All ordered. documented in this encounterPremier Health [facility]01-03-2023 Miscellaneous Notes* Telephone Encounter - Antoinette Payne - 10/25/2022 9:23 AM EST Faxed referral, demographics, office notes to [facility]. Patient advised that office will call to schedule appointment. Antoinette Payne * Telephone Encounter - Antoinette Payne - 10/21/2022 2:09 PM EST Waiting on office notes to be signed to do referral documented in this encounterPremier Health [facility]12-30-2022 NoteHNO ID: [id number] Author: Bebeto Soliman APRN.[employer]ICE TEAM MEMBER Service: ? Author Type: Nurse Practitioner Type: Progress Notes Filed: 10/21/2022 2:13 PM Note Text: Suha Calix is a 42 year old female who presents Patient presents with: ER F/U: Er follow up from [facility] on 10/18 for abdominal pain, loose stools. She states pain is better but still there some. They did give her a medication. They has did a CT results in chart. Overview Notes of Problems Addressed This Visit Gastrointestinal Abdominal pain - Primary Patient presented to [facility] ER on 10/18/2022 with complaints of generalized abdominal pain, softer but formed stools, and nausea. UA was normal. Lipase level a little elevated at 88, and microcytic anemia. She is on eliquis for history of DVT left leg. CT abd/pel showed moderate sigmoid diverticulosis without complication. No acute surgical finding. She was discharged home on zofran and bentyl. Patient states the medications do seem to help symptoms temporarily. Still having sharp stabbing pains and nausea. Also is now constipated. No vomiting or diarrhea. No weakness, fatigue, or blood in stool. States she does have a history of blood in her stool when she first started the eliquis, but none now. Has never had a colonoscopy. States she has a sinus infection: purulent drainage, facial pressure. Has been doing sinus rinses at home without relief. Onset 1 week. Relevant Orders AMYLASE BLD LIPASE BLD COMP METABOLIC PANEL CONSULT TO GASTROENTEROLOGY Other Visit Diagnoses Microcytic anemia Relevant Orders IRON + TIBC FERRITIN BLD VITAMIN B12 BLOOD FOLATE SERUM CBC + DIFF CONSULT TO GASTROENTEROLOGY Elevated lipase Relevant Orders AMYLASE BLD LIPASE BLD Bacterial sinusitis Fatigue, unspecified type Relevant Orders TSH BLD Review of Systems General: Denies fatigue, fever, weight changes Skin: Denies rashes, itching, lesions HEENT: positive sinus congestion and pressure Respiratory: Denies cough, wheezing, SOB Cardiovascular: Denies chest pain, edema, heart palpitations Gastrointestinal: See HPI Musculoskeletal: Denies joint pain, joint swelling, or muscle pain Neurological: Denies dizziness, confusion, vision changes, headache Endocrine: Denies cold intolerance, excessive sweating, excessive thirst, excessive urination, hair changes BP 107/71 Pulse 89 Ht 5' 5 (1.65m) Wt 123 lb 9.6 oz (56.1kg) SpO2 100% LMP 02/16/2022 BMI 20.57 kg/(m2). Physical Exam General: Cooperative, no acute distress, alert, well nourished, well developed. Integumentary: No rashes, color normal, normal moisture. Head and Neck: No lymphadenopathy, neck supple, no thyroid enlargement or nodules, non-tender. HEENT: nasal mucosa red and inflamed with purulent drainage. Positive for maxillary and frontal sinus pressure. Chest and Lungs: Respirations easy and non-labored. No use of accessory muscles. Auscultation reveals clear lung sounds: no wheezes, rhonchi, or crackles Cardiovascular: Normal heart sounds, regular rate and rhythm, no murmurs. No carotid bruit bilaterally. Abdomen: Inspection normal. Palpation: soft, non-tender. No rebound tenderness, rigidity, or guarding. No masses. No hepatosplenomegaly. Auscultation reveals normal bowel sounds in all 4 quadrants. Peripheral Vascular: Inspection to bilateral lower extremities normal. Palpation: bilateral posterior tibial pulses 2+. Temperature normal. No edema bilaterally. ASSESSMENT/PLAN: 1. Abdominal pain, unspecified abdominal location - ICD9: 789.00, ICD10: R10.9 (primary diagnosis) Refer to GI for colonoscopy - AMYLASE BLD - LIPASE BLD - COMP METABOLIC PANEL - CONSULT TO GASTROENTEROLOGY 2. Microcytic anemia - ICD9: 280.9, ICD10: D50.9 Labs today - IRON + TIBC - FERRITIN BLD - VITAMIN B12 BLOOD - FOLATE SERUM - CBC + DIFF - CONSULT TO GASTROENTEROLOGY 3. Elevated lipase - ICD9: 790.5, ICD10: R74.8 - AMYLASE BLD - LIPASE BLD 4. Bacterial sinusitis - ICD9: 473.9, 041.9, ICD10: J32.9, B96.89 Instructed to increase fluid intake, warm salt water gargles, rest, mucinex OTC, probiotic or 2 activia yogurts daily while on antibiotic, tylenol/ibuprofen for fever/pain. Educated on new prescriptions. Patient verbalizes understanding of discharge instructions, and in agreement with treatment plan. Agrees to call the office if symptoms do not improve or they worsen. 5. Fatigue, unspecified type - ICD9: 780.79, ICD10: R53.83 - TSH BLD Bebeto Soliman I reviewed her past medical, surgical, social, and family histories today and updated chart. Allergies, chronic medications, and supplements were also reviewed and the list is now up to date. Health maintenance has been discussed.[facility]12-30-2022 Nurse Note* Yesenia Cloud - 10/21/2022 2:07 PM EST Venipuncture performed to right antecubital. Number of tubes collected: 2 gold and 1 lavender. documented in this encounterPrem[facility]12-30-2022 History of Present illness Narrative* Bebeto Soliman APRN.[facility] - 10/21/2022 1:40 PM EST Suha Calix is a 42 year old female who presents Patient presents with: ER F/U: Er follow up from [facility] on 10/18 for abdominal pain, loose stools. She states pain is betterbut still there some. They did give her a medication. They has did a CT results in chart. Overview Notes of Problems Addressed This Visit Gastrointestinal Abdominal pain - Primary Patient presented to [facility] ER on 10/18/2022 with complaints of generalized abdominal pain, softer but formed stools, and nausea. UA was normal. Lipase level a little elevated at 88, and microcytic anemia. She is on eliquis for history of DVT left leg. CT abd/pel showed moderate sigmoid diverticulosis without complication. No acute surgical finding. She was discharged home on zofran and bentyl. Patient states the medications do seem to help symptoms temporarily. Still having sharp stabbing pains and nausea. Also is now constipated. No vomiting or diarrhea. No weakness, fatigue, or blood in stool. States she does have a history of blood in her stool when she first started the eliquis, but nonenow. Has never had a colonoscopy. States she has a sinus infection: purulent drainage, facial pressure. Has been doing sinus rinses at home without relief. Onset 1 week. Relevant Orders AMYLASE BLD LIPASE BLD COMP METABOLIC PANEL CONSULT TO GASTROENTEROLOGY Other Visit Diagnoses Microcytic anemia Relevant Orders IRON + TIBC FERRITIN BLD VITAMIN B12 BLOOD FOLATE SERUM CBC + DIFF CONSULT TO GASTROENTEROLOGY Elevated lipase Relevant Orders AMYLASE BLD LIPASE BLD Bacterial sinusitis Fatigue, unspecified type Relevant Orders TSH BLD Review of Systems General: Denies fatigue, fever, weight changes Skin: Denies rashes, itching, lesions HEENT: positive sinus congestion and pressure Respiratory: Denies cough, wheezing, SOB Cardiovascular: Denies chest pain, edema, heart palpitations Gastrointestinal: See HPI Musculoskeletal: Denies joint pain, joint swelling, or muscle pain Neurological: Denies dizziness, confusion, vision changes, headache Endocrine: Denies cold intolerance, excessive sweating, excessive thirst, excessive urination, hairchanges BP 107/71 Pulse 89 Ht 5' 5 (1.65m) Wt 123 lb 9.6 oz (56.1kg) SpO2 100% LMP 02/16/2022 BMI 20.57 kg/(m^2). Physical Exam General: Cooperative, no acute distress, alert, well nourished, well developed. Integumentary: No rashes, color normal, normal moisture. Head and Neck: No lymphadenopathy, neck supple, no thyroid enlargement or nodules, non-tender. HEENT: nasal mucosa red and inflamed with purulent drainage. Positive for maxillary and frontal sinus pressure. Chest and Lungs: Respirations easy and non-labored. No use of accessory muscles. Auscultation reveals clear lung sounds: no wheezes, rhonchi, or crackles Cardiovascular: Normal heart sounds, regular rate and rhythm, no murmurs. No carotid bruit bilaterally. Abdomen: Inspection normal. Palpation: soft, non-tender. No rebound tenderness, rigidity, or guarding. No masses. No hepatosplenomegaly. Auscultation reveals normal bowel sounds in all 4 quadrants. Peripheral Vascular: Inspection to bilateral lower extremities normal. Palpation: bilateral posterior tibial pulses 2+. Temperature normal. No edema bilaterally. ASSESSMENT/PLAN: 1. Abdominal pain, unspecified abdominal location - ICD9: 789.00, ICD10: R10.9 (primary diagnosis) Refer to GI for colonoscopy - AMYLASE BLD - LIPASE BLD - COMP METABOLIC PANEL - CONSULT TO GASTROENTEROLOGY 2. Microcytic anemia - ICD9: 280.9, ICD10: D50.9 Labs today - IRON + TIBC - FERRITIN BLD - VITAMIN B12 BLOOD - FOLATE SERUM - CBC + DIFF - CONSULT TO GASTROENTEROLOGY 3. Elevated lipase - ICD9: 790.5, ICD10: R74.8 - AMYLASE BLD - LIPASE BLD 4. Bacterial sinusitis - ICD9: 473.9, 041.9, ICD10: J32.9, B96.89 Instructed to increase fluid intake, warm salt water gargles, rest, mucinex OTC, probiotic or 2 activia yogurts daily while on antibiotic, tylenol/ibuprofen for fever/pain. Educated on new prescriptions. Patient verbalizes understanding of discharge instructions, and in agreement with treatment plan. Agrees to call the office if symptoms do not improve or they worsen. 5. Fatigue, unspecified type - ICD9: 780.79, ICD10: R53.83 - TSH BLD Bebeto Soliman I reviewed her past medical, surgical, social, and family histories today and updated chart. Allergies, chronic medications, and supplements were also reviewed and the list is now up to date. Health maintenance has been discussed. documented in this encounterPremier Health [facility]12-28-2022 Miscellaneous Notes* Telephone Encounter - Noa Silva RN - 10/19/2022 3:33 PM EST BUILDING SUR[employer]YOR EMERGENCY DEPARTMENT FOLLOW UP INITIAL CONTACT Initial contact with patient post discharge, spoke to patient. Patient identified by name and date : YES SUMMARY: -Patient discharged from [facility] ED on 10/18/22. -Follow up appointment on 10/21/22 with Bebeto Soliman (paay'd with Rex Klein RN). -Medication review done yes. -Presented with: abdominal pain, loose stools, known IBS CONCERNS: Spoke with patient and she states she continued to have sharp stabbing pain in her abdomen associated with persistent soft/formed stools. Patient states the Bentyl given in ER does help with the painand she is able to keep down food and liquids. Patient endorses some nausea and states Zofran prescribed in ER does help alleviate. Patient requesting an in office follow up to discuss symptoms further with provider. Patient statesshe is aware of signs/symptoms of dehydration and when to seek urgent medical attention. NEW MEDICATIONS: Bentyl, Zofran MEDS HELD/DISCONTINUED: none BRIEF ED COURSE: CBC, BMP, Lipase, LFT's, CT of abdomen and pelvis, Morphine and Zofran give. Bentyl and Zofran prescribed. Noa Silva RN * Telephone Encounter - Noa Silva RN - 10/19/2022 3:19 PM EST Called to complete ER follow up but patient did not answer and VM is full. Unable to leave a message this date. Patient had an ER visit at [facility] on 10/18/22 for abdominal pain and loose stoola. Noa Silva RN documented in this encounterPremier Health [facility]12-27-2022 Emergency department Note * Memo Matta - 10/18/2022 6:05 [place] [address] HEALTH INFORMATION MANAGEMENT EMERGENCY DEPARTMENT REPORT Patient: SUHA CALIX CONNOR B Semaj [id number] F Status: DEP ER ED Date of Service: 10/18/22 CHIEF COMPLAINT: Abdominal pain and loose stools. ALLERGIES: Penicillin, Toradol, and latex. SOCIAL HISTORY: No alcohol, illicit drugs, or tobacco use. PAST SURGICAL HISTORY: Hysterectomy. PAST MEDICAL HISTORY: Significant for irritable bowel syndrome. FAMILY HISTORY: Noncontributory. HISTORY OF PRESENT ILLNESS: The patient is a 42-year-old female presenting to emergency department with chief complaint of abdominal pain and loose stools. The patient states that this started a few days ago. She took some Mag citrate to see if that would help with her symptoms. She states her stools are still formed but loose and infrequent. The patient states she does have history of IBS, does not see gastroenterology. Does not take any medications for it at home. She denies any fevers. She denies any urinary symptoms. She denies any vaginal bleeding. She has no other associated symptoms at this time. She admits to nausea but no vomiting. REVIEW OF SYSTEMS: Negative except for HPI. PHYSICAL EXAMINATION: GENERAL: The patient is alert and appears to be in no acute distress. She is cooperative with the exam. VITAL SIGNS: Stable. HEENT: The head is normocephalic and atraumatic. Eyes, pupils are equal. Normal conjunctivae. SKIN: Dry. HEART: Regular rate and rhythm. LUNGS: Clear. ABDOMEN: Soft. There is some mild diffuse abdominal tenderness to palpation. No peritoneal signs. No rebound, rigidity, or guarding. No signs of surgical abdomen. EMERGENCY DEPARTMENT CLINICAL COURSE: The patient was hemodynamically stable. I did get lab work on the patient which showed a white count of 4.8, hemoglobin is 10.7 with hematocrit of 34.1, and platelet count is 285, 000. Chemistry panel was unremarkable. Liver function tests were normal. Lipase was minimally high at 88. Urinalysis did not show any obvious signs of infection. I did get a CT scan of the abdomen and pelvis which showed moderate diverticulosis without complication. No acute surgical finding. At this point, the patient did have some mild diffuse abdominal discomfort. Again, no peritoneal signs, very benign exam. At this point, I had given the patient morphine as well as Zofran. The patient has not been vomiting. Ithink the patient can be discharged home. I do not suspect any acute surgical abdomen. She is hemodynamically stable. She is going to follow up with her doctor. I am going to give her a prescription for Bentyl as well as Zofran. She is to return to the emergency department if symptoms worsen or if new symptoms develop. IMPRESSION: 1. Nonspecific abdominal pain. 2. History of irritable bowel syndrome. DISPOSITION: The patient will be discharged home. Report#: Dict ID [id number] / Int ID [id number] <Electronically signed by MEMO MATTA D.O.> 10/20/22 1513 MEMO MATTA D.O. cc: MEDHAT DENNY M.D.; MEMO MATTA D.O. << Signature on File>> Reported By: MEMO MATTA D.O. Signed By: MEMO MATTA D.O. Tests performed at: [address] [address] documented in this encounterPremier Health [facility]11-03-2022 Miscellaneous Notes* Telephone Encounter - Gladis Castillo - 08/25/2022 9:40 AM EDT Pharmacy faxes requesting refill: Requested Prescriptions Pending Prescriptions Disp Refills pantoprazole DR (PROTONIX) 40 mg tablet [Pharmacy Med Name: PANTOPRAZOLE SOD DR 40 MG TAB] 90 tablet 1 Sig: TAKE 1 TABLET BY MOUTH DAILY 30 MINUTES BEFORE A MEAL Date of last visit:08/02/2022 Phone #: [phone] (home) [phone] (cell) The patients preferred pharmacy has been captured for this encounter? yes documented in this encounterPremier Health [facility]10-24-2022 Miscellaneous Notes* Telephone Encounter - Liz Mosqueda MA - 08/15/2022 7:14 AM EDT Pharmacy faxes requesting refill: Requested Prescriptions Pending Prescriptions Disp Refills fluticasone (FLONASE) 50 mcg/actuation nasal spray [Pharmacy Med Name: FLUTICASONE PROP 50 MCG SPRAY] 16 mL 1 Sig: USE 1 SPRAY IN EACH NOSTRIL ONCE DAILY Date of last visit:08/02/2022 Phone #: [phone] (home) [phone] (cell) The patients preferred pharmacy has been captured for this encounter? Yes Liz Mosqueda MA documented in this encounterPremier Health [facility]10-11-2022 NoteHNO ID: [id number] Author: Bebeto Soliman APRN.[facility] Service: ? Author Type: Nurse Practitioner Type: Progress Notes Filed: 08/02/2022 9:24 AM Note Text: Suha Calix is a 42 year old female who presents Patient presents with: Back Pain Abdominal Pain Blood In Urine Overview Notes of Problems Addressed This Visit Nephrology UTI symptoms - Primary Patient states she is having symptoms of dysuria, hematuria, urinary frequency, low back pain, suprapubic pain. Denies fever, fatigue, chills, nausea, vomiting, dizziness, retention, or incontinence. Has been drinking a lot of water. Relevant Medications nitrofurantoin monohydrate and macrocrystal (MACROBID) 100 mg capsule phenazopyridine (PYRIDIUM) 200 mg tablet REVIEW OF SYSTEMS See HPI BP 106/72 Pulse 80 Temp (Src) 98 (Oral) Ht 5' 5 (1.65m) Wt 123 lb 8 oz (56.0kg) SpO2 100% LMP 02/16/2022 BMI 20.55 kg/(m2). Physical Exam General: Cooperative, no acute distress, alert, well nourished, well developed Integumentary: No rashes, color normal, normal moisture Chest and Lungs: Respirations easy and non-labored. No use of accessory muscles. Abdomen: Inspection normal. Palpation/percussion: soft, tender suprapubic. No CVA tenderness to left or right. No rebound tenderness, rigidity, or guarding. No masses. No hepatosplenomegaly. Auscultation reveals normal bowel sounds in all 4 quadrants ASSESSMENT/PLAN: 1. Acute cystitis without hematuria - ICD9: 595.0, ICD10: N30.00 Instructed to increase water intake. Educated on new prescriptions. Instructed to call the office or go to the ER if develops fever, flank pain, vomiting, urinary retention, or urinary incontinence. Make another appointment if symptoms not improving. Once I receive urine culture I will call if antibiotic needs changed. Patient verbalizes understanding of discharge instructions, and in agreement with treatment plan. Agrees to call the office if symptoms do not improve or they worsen. - UA DIP B/O - URINE CULTURE - NITROFURANTOIN MONOHYDRATE AND MACROCRYSTAL 100 MG ORAL CAP - PHENAZOPYRIDINE 200 MG TABLET Bebeto Soliman I reviewed her past medical, surgical, social, and family histories today and updated chart. Allergies, chronic medications, and supplements were also reviewed and the list is now up to date. Health maintenance has been discussed.[facility]10-11-2022 History of Present illness Narrative* Bebeto Soliman, DATA SCIENCE AND IOT MANAGER.[employer] SERVICE TEAM MEMBER - 08/02/2022 9:19 AM EDT Suha Calix is a 42 year old female who presents Patient presents with: Back Pain Abdominal Pain Blood In Urine Overview Notes of Problems Addressed This Visit Nephrology UTI symptoms - Primary Patient states she is having symptoms of dysuria, hematuria, urinary frequency, low back pain, suprapubic pain. Denies fever, fatigue, chills, nausea, vomiting, dizziness, retention, or incontinence.Has been drinking a lot of water. Relevant Medications nitrofurantoin monohydrate and macrocrystal (MACROBID) 100 mg capsule phenazopyridine (PYRIDIUM) 200 mg tablet REVIEW OF SYSTEMS See HPI BP 106/72 Pulse 80 Temp (Src) 98 (Oral) Ht 5' 5 (1.65m) Wt 123 lb 8 oz (56.0kg) SpO2 100% LMP 02/16/2022 BMI 20.55 kg/(m^2). Physical Exam General: Cooperative, no acute distress, alert, well nourished, well developed Integumentary: No rashes, color normal, normal moisture Chest and Lungs: Respirations easy and non-labored. No use of accessory muscles. Abdomen: Inspection normal. Palpation/percussion: soft, tender suprapubic. No CVA tenderness to left or right. No rebound tenderness, rigidity, or guarding. No masses. No hepatosplenomegaly. Auscultation reveals normal bowel sounds in all 4 quadrants ASSESSMENT/PLAN: 1. Acute cystitis without hematuria - ICD9: 595.0, ICD10: N30.00 Instructed to increase water intake. Educated on new prescriptions. Instructed to call the office or go to the ER if develops fever, flank pain, vomiting, urinary retention, or urinary incontinence. Make another appointment if symptoms not improving. Once I receive urine culture I will call if antibiotic needs changed. Patient verbalizes understanding of discharge instructions, and in agreement with treatment plan. Agrees to call the office if symptoms do not improve or they worsen. - UA DIP B/O - URINE CULTURE - NITROFURANTOIN MONOHYDRATE & MACROCRYSTAL 100 MG ORAL CAP - PHENAZOPYRIDINE 200 MG TABLET Bebeto Soliman I reviewed her past medical, surgical, social, and family histories today and updated chart. Allergies, chronic medications, and supplements were also reviewed and the list is now up to date. Health maintenance has been discussed. documented in this encounterPrem[facility] Miscellaneous Notes* Telephone Encounter - Gladis Castillo - 07/15/2022 4:59 PM EDT Patient is schedule for Monday07/22/22 * Telephone Encounter - Rosalina Hilton APRN.CNP - 07/15/2022 2:09 PM EDT Schedule wellness * Telephone Encounter - Dee Dee Mccann - 07/15/2022 1:13 PM EDT Patient called in regard to two questions: 1.) Patient called stating she needs a 2 step TB test done for her employer. Can you order and we do this at our office? 2.) Patient is only able to wear [employer] to work due to standing for 12+ hours. Her employer advised her she would need a doctor's note in order to continue wearing them to work, as theyare now against the dress code policy. Patient stated she wears them due to having large puffy feet, and also mentioned having a foot condition. Please advise. documented in this encounterPremier [facility]09-07-2022 Miscellaneous Notes* Telephone Encounter - Mireya Abdul MA - 06/29/2022 7:35 AM EDT Pharmacy calls requesting refill: Requested Prescriptions Pending Prescriptions Disp Refills topiramate (TOPAMAX) 100 mg tablet [Pharmacy Med Name: TOPIRAMATE 100 MG TABLET] 180 tablet 1 Sig: TAKE 1 TABLET BY MOUTH TWICE A DAY Date of last visit:05/03/2022 Phone #: [phone] (home) [phone] (cell) The patients preferred pharmacy has been captured for this encounter? yes documented in this encounterPrem[facility]08-31-2022 Miscellaneous Notes* Telephone Encounter - Gladis Castillo - 06/22/2022 12:33 PM EDT Pharmacy faxes requesting refill: Requested Prescriptions Pending Prescriptions Disp Refills fluticasone (FLONASE) 50 mcg/actuation nasal spray [Pharmacy Med Name: FLUTICASONE PROP 50 MCG SPRAY] 16 mL 1 Sig: INSTILL ONE SPRAY INTO EACH NOSTRIL ONCE A DAY Date of last visit:03/23/2022 Phone #: [phone] (home) [phone] (cell) The patients preferred pharmacy has been captured for this encounter? yes documented in this encounterPremier Health [facility]08-24-2022 Instructions* Patient Instructions* Madison Denny PA-C - 06/15/2022 1:32 PM EDT The OARRS report has been reviewed and is consistent with the patients medical history and medication intake. Continue with the tizanidine and compounding cream. Continue using TENS unit. Continue with core strengthening and range of motion exercises Continue with the topamax and eletriptan for the migraines. FU in the office in 3 -4 months I discussed the patient with Dr. Emerson who agrees with my assessment and plan. All of the above is to improve functionality and quality of life. No evidence of drug abuse or diversion is seen at this time. documented in this encounterPremier Health [facility]08-24-2022 History of Present illness Narrative* Madison Denny PA-C - 06/15/2022 1:12 PM EDT This note was created using [employer]. Subjective Suha Calix is a 42 year old female. The patient primarily being seen for neck & left leg rubi Patient was last seen on: 02/15/22 At that time, the treatment plan was: see notes Current Meds: Tizanidine - last dose last pm, Compounding Cream - last applied last week Efficacy: help to take the edge off Side effects: sleepiness TENS unit: yes How often used: usually daily Benefit: helps Physical Therapy: currently at [facility] Last UDS: no narcotics Last injection: 01/25/22 - TPI OARRS reviewed At the present time, the patient reports some benefit with her present analgesic therapy. She has issues with sleepiness with the medications. Since her previous visit, she had a [facility]. She did go to the ER to get worked up for a blood clot in the left leg. They told her it was due to a thermal burn from her heating pad. She saw vascular surgeon regarding her leg and they feel they may be able to do some stents to help with her leg pain. INTAKE PAIN ASSESSMENT 06/15/2022 06/15/2022 Are you having pain associated with your visit today? Yes, Provider notified - Pain Scales Verbal (Numeric Rating or Visual Analog Scale) Verbal (Numeric Rating or Visual Analog Scale) Pain Level 4 5 Pain Location Neck Leg-Left Description Aching;Sharp;Stabbing Tightness Duration Amount of Time - - Duration Units Years Years Frequency Continuous Continuous Intervention/Comfort measure Medication;Heat Heat Pain Assessment - - HPI Review of Systems Constitutional: Negative for fever and unexpected weight change. Musculoskeletal: +back pain, joint pain/swelling, muscle cramps/weakness, stiffness, arthritis, and leg pain with exertion. PAST MEDICAL HISTORY Diagnosis Date Anxiety and depression DVT (deep venous thrombosis) (HCC) GERD (gastroesophageal reflux disease) H/O protein C deficiency H/O protein S deficiency History of DVT (deep vein thrombosis) 10/04/2021 Hypothyroid Malignant melanoma (HCC) Melanoma (HCC) Migraines Other specified hypothyroidism 10/04/2021 PAST SURGICAL HISTORY Procedure Laterality Date SECTION SINGLE 1997 ESOPHAGOGASTRODUODENOSCOPY TRANSORAL DIAGNOSTIC 03/23/2013 EGD EXCISION MELANOMA HAND SURGERY HX Left trigger finger release 3 rd finger HYSTEROSCOPY, DIAGNOSTIC (SEPARATE 10/18/2021 IR IVC FILTER PLACEMENT 2011 TONSILLECTOMY & ADENOIDECTOMY <AGE 11 VAGINAL HYSTERECTOMY 03/08/2022 total Social History Tobacco Use Smoking status: Former Packs/day: 1.00 Years: 22.00 Pack years: 22.00 Types: Cigarettes Quit date: 03/23/2016 Years since quittin.2 Smokeless tobacco: Never Vaping Use Vaping Use: Never used Substance Use Topics Alcohol use: Not Currently Drug use: Never Objective BP 127/79 (BP Site: Left Arm, BP Position: Sitting, BP Cuff Size: Large Adult) Pulse 77 Temp 36.3 C (97.3 F) (Temporal) Resp 20 Ht 165.1 cm (5' 5) Wt 56.2 kg (124 lb) LMP 02/16/2022 SpO2 98% BMI 20.63 kg/m Physical Exam Vitals and nursing note reviewed. Constitutional: Appearance: Normal appearance. She is well-developed, well-groomed and normal weight. HENT: Head: Normocephalic and atraumatic. Right Ear: Hearing normal. Left Ear: Hearing normal. Eyes: Conjunctiva/sclera: Conjunctivae normal. Musculoskeletal: Comments: She walks with a normal gait. She has tenderness to palpation in the cervical region withspasms noted in the trapezius and paraspinal muscles. Strength is 5/5 throughout. Sensation is intact to light touch throughout. SLR is negative. The violaceous discoloration in the LLE has improved. Neurological: Mental Status: She is alert and oriented to person, place, and time. Psychiatric: Attention and Perception: Attention and perception normal. Mood and Affect: Mood and affect normal. Speech: Speech normal. Behavior: Behavior normal. Behavior is cooperative. Thought Content: Thought content normal. Cognition and Memory: Cognition and memory normal. Judgment: Judgment normal. Assessment and Plan ASSESSMENT/PLAN: 1. Neck pain - ICD9: 723.1, ICD10: M54.2 (primary diagnosis) The OARRS report has been reviewed and is consistent with the patients medical history and medication intake. Continue with the tizanidine and compounding cream. Continue using TENS unit. Continue with core strengthening and range of motion exercises Continue with the topamax and eletriptan for the migraines. FU in the office in 3-4 months 2. Right leg pain - ICD9: 729.5, ICD10: M79.604 3. Left leg pain - ICD9: 729.5, ICD10: M79.605 4. Myofascial pain syndrome - ICD9: 729.1, ICD10: M79.18 5. Other migraine without status migrainosus, not intractable - ICD9: 346.80, ICD10: G43.809 Madison Denny PA-C documented in this encounterPremier Health [facility]07-26-2022 Miscellaneous Notes* Telephone Encounter - Antoinette Payne - 05/17/2022 2:32 PM EDT Called office and received fax number. Referral, face sheet and office notes faxed to [phone] Sauceda * Telephone Encounter - Celena Hinkle - 05/17/2022 2:21 PM EDT Xochitl from [facility] called and states that they have 2 offices; neither office received a referral. Any questions, she may be reached at [phone]. Thanks so much, Celena Zac HINKLE * Telephone Encounter - Antoinette Payne - 05/17/2022 12:[address] Escobar office to check on referral, they said they don't have her as an existing patient in their system. They are not sure if they received the referral or not. They said they would check and get back to us. Phone number provided. If they call back please ask if they received the referral and will reach out to patient to schedule appointment or if we need to refax. * Telephone Encounter - Thierry Calero - 05/17/2022 12:00 PM EDT Patient calls today. Reason for Call: She said she was supposed to be referred to a vascular doctor and hasnt heard anything. She wanted to know if we could check into this, Please call her at number below. Thanks [phone] (home) [phone] (cell) Patient last appointment: 05/12/2022 Thierry Calero documented in this encounterPremier Health [facility]07-26-2022 Miscellaneous Notes* Therapy (PT/OT/Speech/Resp) - [facility] - 05/17/2022 7:43 AM EDT [facility] [place] [id number] PHYSICAL THERAPY REPORT Patient: SUHA CALIX HYO YOUNG M.D. [id number] [age] F Status: REG RCR PT Physical Therapy Initial Evaluation DATE OF VISIT: 05/16/2022 PHYSICIAN: Dr. Denny. PHYSICAL THERAPY DIAGNOSES: 1. Left-sided low back pain. 2. Left sciatica. MEDICAL DIAGNOSIS: Left-sided sciatica, M54.32. ONSET DATE: 02/20/2022. CHIEF COMPLAINT/FUNCTIONAL LIMITATIONS: Left-sided low back pain with intermittent left sciatica, which the patient rates as a 6 to 7/10 and reports it increases with sitting, standing, or walking. PERSONAL FACTORS AND COMORBIDITIES: 1. Long history of low back pain with sciatic symptoms. 2. Recent hysterectomy. HISTORY: The patient reports that her symptoms have been on and off for many years, but have recently increased over the last few months. The patient does report that she had a hysterectomy this past January. 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 She has not worked since her hysterectomy. She is currently not performing any exercises specific to her back or sciatic symptoms. She reports that taking weight off her left side when sitting, elevating and using heat helps her symptoms. She has also taken Eliquis secondary to history of DVTs. She does report x-rays weretaken. OBJECTIVE FINDINGS: ACTIVE RANGE OF MOTION: The patient's lumbar flexion with her hands to her ankle level, extension was 50% and was limited secondary to pain and bilateral side bending was within normal limits, but painful to the left. GAIT/AMBULATION: The patient ambulated with a decrease in trunk rotation noted. FLEXIBILITY: The patient's bilateral hamstring, quad and hip flexor flexibility was symmetrical andwithin normal limits. PALPATION/OBSERVATION: The patient was tender to her left PSIS and also to her left piriformis musculature. TEST MOVEMENTS: With extension in lying and repeat extension lying, the patient reported no increase in symptoms and she had no peripheralization of symptoms as well. At the end of the session, the patient was instructed with a home exercise program which included progressive strengthening, lumbar stabilization exercises, range of motion/ stretching, nerve glides,and Lennie extension principles which she is able to correctly demonstrate. PROBLEM LIST/FUNCTIONAL LIMITATIONS: 1. Left-sided low back pain. 2. Left sciatic symptoms. 3. Decreased lumbar extension. 4. No formal exercise program. SHORT TERM GOALS: The patient will be independent with a home exercise program within 1 to 2 weeks. LONG-TERM GOALS: 1. The patient will report an overall reduction in her left-sided low back pain to less than or equal to 2/10 within 6 weeks. 2. The patient will report a decrease in the frequency of her radicular symptoms in her left lower extremity within 6 weeks. 3. The patient will report greater than or equal to 50% improvement overall with her symptoms within 6 weeks. 4. The patient will improve her lumbar extension to 75% within 6 weeks. PROGNOSIS/REHAB POTENTIAL: Good for physical therapy goals. TREATMENT PLAN: The patient will be seen for progressive strengthening, lumbar stabilization exercises, range of motion/stretching, Lennie extension principles, nerve glides, and instruction with a home exercise program. FREQUENCY/DURATION: 1 to 2 times a week for 6 weeks. DISCHARGE PLAN: The patient will be discharged from active physical therapy upon completion of all goals set beforeher, plateauing with physical therapy progress, and/or maximizing her current physical therapy prescription. Thank you for the opportunity to participate with the patient's plan of care. Report#: Dict ID [id number] / Int ID [id number] cc: MEDHAT DENNY Dictated By: VEGA GRAVES DPT <Electronically signed by VEGA GRAVES DPT> 05/17/22 1720 VEGA GRAVES DPT CC: << Signature on File>> Reported By: VEGA GRAVES DPT Signed By: VEGA GRAVES DPT Tests performed at: [address] [address] documented in this encounterPremier Health [facility]07-15-2022 Miscellaneous Notes* Telephone Encounter - Heidy Rojas - 05/06/2022 10:33 AM EDT Called patient regarding referral but had to leave a message - checking to see if patient would like to go to [facility]. * Telephone Encounter - Medhat Denny MD - 05/05/2022 2:42 PM EDT PT referral placed Medhat Denny MD documented in this encounterPremier Health [facility]07-12-2022 Nurse Note* RT Ezra(R) - 05/03/2022 8:19 AM EDT 3 VIEW LUMBAR SPINE x-ray performed @ [facility] RT Ezra(R) documented in this encounterPremier Health [facility]07-12-2022 History of Present illness Narrative* Medhat Denny MD - 05/03/2022 7:11 AM EDT Images from the original note were not included. [facility] PROGRESS NOTE Encounter Date: 05/03/2022 Chief Complaint: ED Follow-up ([facility] ER 04/27/2022 Dx: Left lower leg pain and uti) ER follow up - left leg pain felt like her previous blood clots so went to ER 04/27 - ultrasound only showed known chronic DVT and venous incompetence - mottling discoloration of left lower leg - hard to stand on that leg - pain travels whole leg and up to the hip/back - taking eliquis religiously - wondering if it could be sciatica type pain - last saw vascular doctor last summer and was told to continue blood thinners, compression, there's nothing else that can be done Review of Systems Cardiovascular: Positive for leg swelling. Musculoskeletal: Positive for back pain. PAST MEDICAL HISTORY Diagnosis Date Anxiety and depression DVT (deep venous thrombosis) (HCC) GERD (gastroesophageal reflux disease) H/O protein C deficiency H/O protein S deficiency History of DVT (deep vein thrombosis) 10/04/2021 Hypothyroid Malignant melanoma (HCC) Melanoma (HCC) Migraines Other specified hypothyroidism 10/04/2021 ALLERGIES Allergen Reactions Latex Rash Penicillins Anaphylaxis Toradol [Ketorolac] Swelling Tongue swelling Current Outpatient Medications on File Prior to Visit Medication Sig cephALEXin (KEFLEX) 500 mg capsule TAKE 1 CAPSULE BY MOUTH TWICE A DAY FOR 7 DAYS levothyroxine (SYNTHROID) 112 mcg tablet Take 1 tablet by mouth once daily. eletriptan (RELPAX) 20 mg tablet Take 1 tablet by mouth as needed for migraine headache (see administration instructions). may repeat in 2 hours if necessary acetaminophen (TYLENOL EXTRA STRENGTH) 500 mg tablet Take 2 tablets by mouth every 6 hours. ibuprofen (MOTRIN) 600 mg tablet Take 1 tablet by mouth every 6 hours. Take with food. senna (SENNA) 8.6 mg tab Take 1 tablet by mouth twice daily. pantoprazole DR (PROTONIX) 40 mg tablet TAKE 1 TABLET BY MOUTH EVERY DAY 30 MIN BEFORE A MEAL polyethylene glycol 3350 (MIRALAX, GLYCOLAX) 17 gram/dose powder Take 17 g by mouth once daily. topiramate (TOPAMAX) 100 mg tablet TAKE 1 TABLET BY MOUTH TWICE A DAY apixaban (ELIQUIS) 5 mg tab(s) Take 1 tablet by mouth twice daily. ondansetron orally disintegrating (ZOFRAN ODT) 4 mg disintegrating tablet Take 1 tablet by mouth every 8 hours as needed for nausea/vomiting. fluticasone (FLONASE) 50 mcg/actuation nasal spray INSTILL ONE SPRAY INTO EACH NOSTRIL ONCE A DAY No current facility-administered medications on file prior to visit. Social History Tobacco Use Smoking status: Former Smoker Packs/day: 1.00 Years: 22.00 Pack years: 22.00 Types: Cigarettes Quit date: 03/23/2016 Years since quittin.1 Smokeless tobacco: Never Used Vaping Use Vaping Use: Never used Substance Use Topics Alcohol use: Not Currently Drug use: Never OBJECTIVE: Vital Signs: BP 91/62 (BP Site: Left Arm, BP Position: Sitting, BP Cuff Size: Regular Adult) Pulse 90 Temp 37 C (98.6 F) (Oral) Resp 12 Ht 162.6 cm (5' 4.02) Wt 57.3 kg (126 lb 6.4 oz) LMP 02/16/2022 BMI 21.69 kg/m Physical Exam Vitals and nursing note reviewed. Constitutional: General: She is not in acute distress. Appearance: She is not toxic-appearing. Cardiovascular: Pulses: Dorsalis pedis pulses are 2+ on the left side. Posterior tibial pulses are 2+ on the left side. Musculoskeletal: Lumbar back: Tenderness present. No bony tenderness. Normal range of motion. Back: Left lower leg: Edema present. Neurological: Mental Status: She is alert. ASSESSMENT/PLAN: 1. Left leg pain - ICD9: 729.5, ICD10: M79.605 (primary diagnosis) - 2/2 chronic DVT vs. Sciatica - ultrasound in ER shows no new findings compared to last year's ultrasound - we will try tx for sciatic type pain - if pain not better with this; will get 2nd opinion at different vascular office for tx options 2. Chronic deep vein thrombosis (DVT) of femoral vein of left lower extremity (HCC) - ICD9: 453.51,ICD10: I82.512 - extensive all down left leg - continue eliquis and compression 3. Left sided sciatica - ICD9: 724.3, ICD10: M54.32 - XR LUMBAR GENERAL 3V AP/LAT/L5-S1 - METHYLPREDNISOLONE 4 MG TABLETS IN A DOSE PACK - TRAMADOL 50 MG TABLET PDMP website checked and validated. All prescriptions have been APPROPRIATELY filled. No suspiciousactivity was identified. 05/03/2022 by Medhat Denny MD Medical Decision Making: Problems: Moderate: 1+ chronic illnesses with change Data: Unique source(s) for external note(s) reviewed: 1 Unique test result(s) reviewed: 2 Risk: Low: Low risk from testing/treatment Moderate: Drug management Medical Decision Making Level: 4 - Moderate Electronically signed and closed, Medhat Denny MD documented in this encounterPremier Health [facility]07-07-2022 History of Present illness Narrative* Micha Klein RN - 04/28/2022 10:30 AM EDT Called to complete ER follow up but patient did not answer and VM was left for return call. Patienthad an ER visit at [facility]22 for LLE leg pain (-DVT) and +UTI. [employer] message sent for second outreach attempt. Micha Klein RN documented in this encounterPremier Health [facility]07-01-2022 History of Present illness Narrative* Micha Klein RN - 04/22/2022 11:16 AM EDT Suha Calix is a 42 year old female who presents for PPD read. Patient had PPD administered on 04/20/22 in left forearm. Results: no erythema or induration, 0mm. Step 2 scheduled for 04/27/22. Micha Klein RN documented in this [facility]06-28-2022 Miscellaneous Notes* Telephone Encounter - Medhat Denny MD - 04/19/2022 1:02 PM EDT PPD ordered Medhat Denny MD * Telephone Encounter - Magalys Quintero - 04/19/2022 1:00 PM EDT Patient calls today. Reason for Call: Patient scheduled an appointment for 04/20/22 for a TB test . Thank you [phone] (home) [phone] (cell) Patient last appointment: 03/23/2022 Magalys Quintero documented in this [facility]06-10-2022 Miscellaneous Notes* Telephone Encounter - Fartun Morejon - 04/01/2022 3:05 PM EDT Called patient and via vm message advised her appointment time has changed to 2:[address] Perkins becoming unavailable that morning and requested a return call to confirm. I also sent patient a [employer] message.. . Fartun Morejon documented in this [facility]06-01-2022 Nurse Note* Yesenia Cloud - 03/23/2022 9:06 AM EDT Venipuncture performed to right antecubital. Number of tubes collected: 1 gold and 1 lavender. documented in this encounterPremier Health [facility]06-01-2022 History of Present illness Narrative* Medhat Denny MD - 03/23/2022 8:42 AM EDT [facility] PROGRESS NOTE Encounter Date: 03/23/2022 Chief Complaint: Hypothyroidism (6 month follow up) and Migraine Had hysterectomy 03/08 Eliquis working out well so far so good Hypothyroidism - on 112mcg; due for TSH rechecked On her perop blood work glucose was 109; was not fasting Does snack in middle of the night; always craving sugary things Eats maybe 1-2 meals per day usually Review of Systems Constitutional: Negative for chills and fever. Gastrointestinal: Positive for abdominal pain (post op). Endo/Heme/Allergies: Does not bruise/bleed easily. PAST MEDICAL HISTORY Diagnosis Date Anxiety and depression DVT (deep venous thrombosis) (HCC) GERD (gastroesophageal reflux disease) H/O protein C deficiency H/O protein S deficiency History of DVT (deep vein thrombosis) 10/04/2021 Hypothyroid Malignant melanoma (HCC) Melanoma (HCC) Migraines Other specified hypothyroidism 10/04/2021 ALLERGIES Allergen Reactions Latex Rash Penicillins Anaphylaxis Toradol [Ketorolac] Swelling Tongue swelling Current Outpatient Medications on File Prior to Visit Medication Sig levothyroxine (SYNTHROID) 112 mcg tablet TAKE 1 TABLET BY MOUTH EVERY DAY acetaminophen (TYLENOL EXTRA STRENGTH) 500 mg tablet Take 2 tablets by mouth every 6 hours. ibuprofen (MOTRIN) 600 mg tablet Take 1 tablet by mouth every 6 hours. Take with food. senna (SENNA) 8.6 mg tab Take 1 tablet by mouth twice daily. pantoprazole DR (PROTONIX) 40 mg tablet TAKE 1 TABLET BY MOUTH EVERY DAY 30 MIN BEFORE A MEAL polyethylene glycol 3350 (MIRALAX, GLYCOLAX) 17 gram/dose powder Take 17 g by mouth once daily. topiramate (TOPAMAX) 100 mg tablet TAKE 1 TABLET BY MOUTH TWICE A DAY apixaban (ELIQUIS) 5 mg tab(s) Take 1 tablet by mouth twice daily. ondansetron orally disintegrating (ZOFRAN ODT) 4 mg disintegrating tablet Take 1 tablet by mouth every 8 hours as needed for nausea/vomiting. fluticasone (FLONASE) 50 mcg/actuation nasal spray INSTILL ONE SPRAY INTO EACH NOSTRIL ONCE A DAY eletriptan (RELPAX) 20 mg tablet Take 1 tablet by mouth as needed for Migraine Headache (see administration instructions). may repeat in 2 hours if necessary oxyCODONE IR (ROXICODONE) 5 mg immediate release tablet Take 1 tablet by mouth every 8 hours as needed for pain. (Patient not taking: Reported on 03/23/2022) cyclobenzaprine (FLEXERIL) 10 mg tablet Take 10 mg by mouth as needed. (Patient not taking: Reported on 03/23/2022 ) No current facility-administered medications on file prior to visit. Social History Tobacco Use Smoking status: Former Smoker Packs/day: 1.00 Years: 22.00 Pack years: 22.00 Types: Cigarettes Quit date: 03/23/2016 Years since quittin.0 Smokeless tobacco: Never Used Vaping Use Vaping Use: Never used Substance Use Topics Alcohol use: Not Currently Drug use: Never OBJECTIVE: Vital Signs: BP 100/70 (BP Site: Left Arm, BP Position: Sitting, BP Cuff Size: Regular Adult) Pulse 92 Temp 36.6 C (97.8 F) (Oral) Resp 12 Ht 162.6 cm (5' 4.02) Wt 56.5 kg (124 lb 9.6 oz) LMP 02/16/2022 BMI 21.38 kg/m Physical Exam Vitals and nursing note reviewed. Constitutional: General: She is not in acute distress. Appearance: She is not toxic-appearing. Neurological: Mental Status: She is alert. Psychiatric: Mood and Affect: Mood normal. Thought Content: Thought content normal. Judgment: Judgment normal. ASSESSMENT/PLAN: 1. Hypothyroidism, unspecified type - ICD9: 244.9, ICD10: E03.9 (primary diagnosis) - Instructed patient on importance of taking on an empty stomach either first thing in the morning or at bedtime. - check TSH today - LEVOTHYROXINE 112 MCG TABLET 2. Elevated glucose - ICD9: 790.29, ICD10: R73.09 - rule out diabetes - eat a high protein snack before bed and try to eat more regular meals - HGB A1C 3. History of DVT (deep vein thrombosis) - ICD9: V12.51, ICD10: Z86.718 4. H/O protein C deficiency - ICD9: V12.3, ICD10: Z86.2 5. H/O protein S deficiency - ICD9: V12.3, ICD10: Z86.2 - continue eliquis Medical Decision Making: Problems: Moderate: 2+ stable chronic illnesses Data: Unique test(s) ordered: 1 Risk: Moderate: Drug management Medical Decision Making Level: 4 - Moderate Electronically signed and closed, Medhat Denny MD documented in this encounterPrem[facility]31-[facility] History of Present illness Narrative* Leslie Rivera APRN.PREPARED FOODS SERVICE TEAM MEMBER - 03/22/2022 10:00 AM EDT DATE OF SERVICE: March 22, 2022 PROBLEM: Suha Calix presents for postop virtual visit. SURGERY & DATE: Dr. Perkins. 03/08/22 Total laparoscopic hysterectomy, bilateral salpingectomy, cystoscopy PATHOLOGY: FINAL DIAGNOSIS A. Uterus, cervix, and fallopian tubes; hysterectomy and bilateral salpingectomy: - Nabothian cysts. - Secretory endometrium. - Endometriosis, fallopian tube. SUBJECTIVE/INTERVAL HISTORY: Suha Calix reports that she feels well. No fever or chills. No shortness of breath, cough, or chest pain. No incisional redness, swelling, or drainage. Patient reports that her appetite is good. No abdominal pain, nausea, vomiting, diarrhea, or constipation. Was given Bactrim for suspected UTI, pt did not drop off urine culture. Bladder sx are improving. She does have spasms at baseline d/t hx of lynn in place with latex and she has a latex allergy. She notes discomfort at the end of the day, more on the right side, cannot take much Motrin d/t Eliquis, using Tylenol, finished Oxy No fevers Incisions healing well No vaginal bleeding, has noticed light spotting when wiping occasionally OBJECTIVE: VITALS: Deferred for virtual visit GENERAL: She is alert, oriented, pleasant and cooperative. ASSESSMENT: Encounter Diagnosis ICD-10-CM 1. Post-operative state Z98.890 2. S/P hysterectomy Z90.710 3. Endometriosis determined by laparoscopy N80.9 PLAN: 1. Discussed results of pathology and implications with patient. 2. Postop restrictions and wound care reviewed. 3. Follow up with Dr. Perkins on 04/22/2022. Leslie Rivera APRN.DOLORES documented in this encounterPremier [facility]05-26-2022 Miscellaneous Notes* Telephone Encounter - Maral Rand MD - 03/17/2022 8:19 PM EDT RESIDENT PHONE NOTE 03/17/2022 8:20 PM Patient identified by name and date. Dr. Perkins. 03/08/22 Total laparoscopic hysterectomy, bilateral salpingectomy, cystoscopy Patient reports feeling slightly worse over the last few days. She reports mild lower back pain. She had an episode of blood in her urine last night. She has a history of recurrent UTI. She took a home urine test that was positive for leukocyte esterase and nitrites. No fever or chills. No nausea or vomiting. Advised patient to drop off a urine culture at the nearest [facility] lab in the morning. Rx for Bactrim sent for empiric treatment. Patient advised to call back with any additional questions or concerns. Patient acknowledged an understanding of the plan. Maral Rand MD OBGYN Resident Physician documented in this encounterPremier Health [facility]05-20-2022 Miscellaneous Notes* Telephone Encounter - Laurie Patricio MA - 03/11/2022 11:14 AM EDT Pharmacy faxes requesting refill: Pending Prescriptions Disp Refills LEVOTHYROXINE 112 MCG TABLET 90 tablet 0 Sig: TAKE 1 TABLET BY MOUTH EVERY DAY INGRID: Yes Date of last visit:09/22/2021 Phone #: [phone] (home) [phone] (cell) The patients preferred pharmacy has been captured for this encounter? yes documented in this encounterPremier Health [facility]05-16-2022 History of Present illness Narrative* Fernie Rascon MD - 03/07/2022 4:19 PM EDT Images from the original note were not included. [facility] SECTION FOR MINIMALLY INVASIVE GYNECOLOGIC SURGERY OUTPATIENT VISIT DATE 03/07/2022 OUTPATIENT VISIT TYPE VIRTUAL HISTORY AND PHYSICAL Referring MD: Fernie Rascon [id number] [facility] [id number] HPI: Suha Calix is a 41 year old female patient followed in Minimally Invasive Gynecologic Surgery for preoperative history and physical for upcoming laparoscopic hysterectomy. Her preoperative work up has included the following: Visualized. Long 82 mm x ap 59 mm x tr 79 mm. Vol 201.2 cm? Position: retroverted Endometrial thickness, total 10.4 mm Small fibroid in the lower uterine segment. Size 14 mm x 5 mm x 7 mm. Mean 8.7 mm. Vol 0.260 cm? Right Ovary ========= Visualized. Size 44 mm x 27 mm x 31 mm. Vol 19.1 cm?. There are small follicles in the ovary. Left Ovary ======== Not visualized due to bowel gas Cul de Sac ========= Visualized. No free fluid visualized No adnexal mass is seen. IMPRESSION: Endometrial thickness is normal for this patient's age. Retroflexed uterus with a small fibroid. Normal right ovary. EMB results: FINAL DIAGNOSIS: ENDOMETRIUM, BIOPSY: SPARSE SUPERFICIAL FRAGMENTS OF ENDOMETRIUM WITH BENIGN ENDOCERVICAL PAST MEDICAL HISTORY Diagnosis Date Anxiety and depression DVT (deep venous thrombosis) (HCC) GERD (gastroesophageal reflux disease) H/O protein C deficiency H/O protein S deficiency History of DVT (deep vein thrombosis) 10/04/2021 Hypothyroid Malignant melanoma (HCC) Melanoma (HCC) Migraines Other specified hypothyroidism 10/04/2021 PAST SURGICAL HISTORY Procedure Laterality Date SECTION SINGLE 1997 ESOPHAGOGASTRODUODENOSCOPY TRANSORAL DIAGNOSTIC 03/23/2013 EGD EXCISION MELANOMA HAND SURGERY HX Left trigger finger release 3 rd finger HYSTEROSCOPY, DIAGNOSTIC (SEPARATE 10/18/2021 IR IVC FILTER PLACEMENT 2010 TONSILLECTOMY & ADENOIDECTOMY <AGE 12 Current Outpatient Medications on File Prior to Visit Medication Sig cyclobenzaprine (FLEXERIL) 10 mg tablet Take 10 mg by mouth as needed. enoxaparin (LOVENOX) 60 mg/0.6 mL syrg Inject 0.562 mL subcutaneously every [address] (PROTONIX) 40 mg tablet TAKE 1 TABLET BY MOUTH EVERY DAY 30 MIN BEFORE A MEAL polyethylene glycol 3350 (MIRALAX, GLYCOLAX) 17 gram/dose powder Take 17 g by mouth once daily. topiramate (TOPAMAX) 100 mg tablet TAKE 1 TABLET BY MOUTH TWICE A DAY apixaban (ELIQUIS) 5 mg tab(s) Take 1 tablet by mouth twice daily. levothyroxine (SYNTHROID) 112 mcg tablet TAKE 1 TABLET BY MOUTH EVERY DAY ondansetron orally disintegrating (ZOFRAN ODT) 4 mg disintegrating tablet Take 1 tablet by mouth every 8 hours as needed for nausea/vomiting. fluticasone (FLONASE) 50 mcg/actuation nasal spray INSTILL ONE SPRAY INTO EACH NOSTRIL ONCE A DAY eletriptan (RELPAX) 20 mg tablet Take 1 tablet by mouth as needed for Migraine Headache (see administration instructions). may repeat in 2 hours if necessary ibuprofen (MOTRIN) 200 mg tablet Take 600 mg by mouth three times daily. No current facility-administered medications on file prior to visit. ALLERGIES Allergen Reactions Latex Rash Penicillins Anaphylaxis Toradol [Ketorolac] Swelling Tongue swelling Immunization History Administered Date(s) Administered COVID-19 vaccine, full dose (MODERNA) 10/22/2020 11/20/2020 09/01/2021 Influenza Seasonal Inj Age 3+ 07/28/2020 08/06/2020 Influenza Seasonal Inj Quad Age 6 Mo - 64 Yrs 09/22/2021 Influenza Seasonal Inj Quad Age 6 Mo-64 Yrs Pres Free 09/22/2021 PPD ([place]) 04/23/2021 Social History Social History Narrative Not on file FAMILY HISTORY Problem Relation Age of Onset Clotting Disorder Father Protein C and S deficiency No Known Problems Mother Clotting Disorder Paternal Grandfather Anesthesia Problems No Family History OB History T0 L1 SAB0 IAB0 Ectopic0 Multiple0 Live Births1 OB History T0 L1 SAB0 IAB0 Ectopic0 Multiple0 Live Births1 Patient's last menstrual period was 02/16/2022. Review of Systems: Constitutional: Denies fever or chills Eyes: Denies change in visual acuity HENT: Denies nasal congestion or sore throat Respiratory: Denies cough or shortness of breath Cardiovascular: Denies chest pain or edema GI: Denies abdominal pain, nausea, vomiting, bloody stools or diarrhea : Denies dysuria Musculoskeletal: Denies back pain or joint pain Integument: Denies rash Neurologic: Denies headache, focal weakness or sensory changes Endocrine: Denies polyuria or polydipsia Lymphatic: Denies swollen glands Psychiatric: Denies depression or anxiety Physical Exam: LMP 02/16/2022 Not performed as Pelvic examination: Assessment and Care Plan: Suha Calix is a 41 year old with Abnormal uterine bleeding (primary encounter diagnosis) Fibroids for total laparoscopic hysterectomy PLAN AND RECOMMENDATIONS: (Anticoagulation) Patient has good exercise capacity and is at low risk for any major cardiac events with Hysterectomy. However known hypercoagulability disorder and multiple DVT episodes. Would recommend stop [id number] hours prior to procedure and transition to Lovenox 60 mg S/Q BID and can stop Lovenox 12 hours prior to surgery. Eliquis can be restarted post op when deemed safe by Surgery. Dispense Lovenox s/q 60 mg BID CONSENT: The risks, benefits and alternatives as well as the indications of her planned surgery were reviewed with the patient today. Risks including but not limited to the following were outlined indetail: Bleeding rarely requiring blood transfusion with the associated risk of viral transmission of Hepatitis 1/700,000, HIV 1/2,000,000. The risks and benefits of autologous blood transfusion with predonation were also discussed. Infection requiring antibiotics, potential prolonged or re-hospitalization as well as possible re-operation. Damage to adjacent organs including but not limited to: bladder, bowels, ureters (tubes that connect kidneys to bladder), pelvic organs (ovaries, fallopian tubes, uterus or womb), blood vessels and nerves, with the possibility of re-operation. Medical complications associated with surgery and anesthesia including but not limited to: deep vein thromobosis (DVT, or blood clot in the leg), pulmonary embolus (PE, blood clot in the lungs), heart attack, stroke, or . All questions were answered to the patient s satisfaction and the informed consent as well as consent for blood transfusion was signed today. The risks and benefits of autologous blood transfusion were also reviewed and the patient has declined this option. The risks, benefits and alternatives of the planned procedure have been discussed with the patient and/or her legal inventory representative, all questions have been answered and she agrees to proceed. Fernie Rascon MD Section of Minimally Invasive Gynecologic Surgery 03/07/2022 4:21 PM documented in this encounterPrem[facility]05-10-2022 Miscellaneous Notes* Telephone Encounter - Rere Watson PA-C - 03/01/2022 11:44 AM EDT Called [facility] about the lovenox cript for PT 2 syringes 60ml every 12 hrs for 1 day supply,with 1 refill documented in this encounterPremier Health [facility]05-[facility]-2022 History of Present illness Narrative* Luiz Laura LPN - 02/24/2022 11:00 AM EDT DATE OF SERVICE: 02/24/2022 PROBLEM: Suha Calix presents for pre-op teaching. PRE-OP DIAGNOSIS: Fibroids, H/O protein S deficiency,H/O protein C deficiency, Abnormal uterine bleeding SCHEDULED SURGERY AND DATE: LAPAROSCOPIC HYSTERECTOMY TOTAL FOR UTERUS 250 G OR LESS W/REMOVAL TUBE(S) AND/OR OVARY(S) on 03/08/2022 PRIMARY SURGEON: Fernie Rascon MD NURSING PREOP ASSESSMENT: Fevers, chills, cough, or nasal congestion: No Vaginal itching, burning, discharge, or odor: No Pain with urination, frequency, urgency, cloudy or foul smelling urine: No If yes to any of the above then MD notified: Not Applicable ADVANCED CARE PLANNING: Does the patient have an advanced directive: No Does [facility] have a copy of the patient's advanced directive: No Was advanced directive given to the patient: No PATIENT LEARNING ASSESSMENT: Individual patient/family learning needs evaluated and addressed: Yes Cognitive ability: Alert and oriented Motivation to learn: Eager Interested Factors affecting learning: None Physical limitations affecting learning: None Patient learns best by: Individual Instruction Written Instruction - Hand-outs Verbal Instruction Method of instruction: Individual instruction Written instruction - handouts Verbal instruction Instructions provided to: Patient via face to face discussion Family support: High - Very involved in pt care PRE- AND POST-OPERATIVE TEACHING Pre-operative teaching and supplemental material provided and reviewed with patient: Your Surgical Guide Book Map Written pre-op and post-op instructions Antibacterial soap: given to patient today Pre-operative instructions provided and reviewed with patient/family: No eating, drinking, or smoking after midnight prior to surgery unless otherwise directed No alcohol the day before surgery Medications as prescribed by anesthesia, internal medicine, surgeon, or MANUFACTURING SHIFT SUPERVISOR Stop NSAIDs, Aspirin (ASA), vitamins, herbal supplements, herbal teas, and diet pills 7-10 days prior to surgery OK to take tylenol prn pain unless otherwise directed by physician Call surgery coordinators if any other questions about surgery date or pre-op appointments Bowel prep instructions: None needed NPO after midnight Day of surgery instructions provided and reviewed with patient/family: Arrival time (call surgical coordinators on the office day prior to surgery for verification) No jewelry, body piercing, makeup, contacts, lotions, nail argentine on fingers, or anything in hair on arrival to surgery Wear low healed shoes and loose fitting clothing Leave all valuables at home or with a family member [facility] to [facility] and [facility] Parking/parking validation on the day prior to surgery Admission/check in (desk P-20 or J1-1) Holding area Placement of IV Surgical positioning Family waiting area Surgical recovery room Post-operative instructions provided and reviewed with patient/family: SEE PATIENT INSTRUCTION SECTION FOR DETAILS. ACTIVITY - No heavy lifting (>5-10 lbs), no pushing/pulling, OK to climb stairs DRIVING - No driving for 3 weeks unless prior approval from MD, OK to ride in a car. DIET - Advance diet as tolerated and as ordered by MD, drink 8 glasses of water a day, eat a diet high in protein and fiber unless otherwise directed by MD. VULVAR CARE - Sitz baths TID and prn, keep vulva clean/dry/open to air, apply medicated cream as prescribed by surgeon. BATHING - OK to shower after surgery unless otherwise directed by MD, no tub baths. PAIN MEDICATION - IV pain medication after surgery, IV LITHOPLATE MAKER if ordered by MD, discharged home with aprescription for PO pain medication, pain management after surgery, side effects of pain medication(including constipation, dizziness, drowsiness, and medication interactions). VAGINAL CARE - Pelvic rest x6 weeks unless otherwise directed by MD. DVT PROPHYLAXIS - Early ambulation, SCDs, injectable anticoagulants (heparin, lovenox, etc) RESPIRATORY - Incentive spirometer, coughing/deep breathing exercises, ambulation. RETURN TO WORK - As directed by physician, please send any FMLA papers to physician's workers compensation legal secretary. SYMPTOMS TO NOTIFY MD - Fever, chills, nausea, vomiting, increased or severe pain, heavy vaginal bleeding, foul smelling vaginal drainage, pain or swelling in extremities. URGENT SYMPTOMS - Call 911 or go to ER if any shortness of breath, difficulty breathing, or chest pain. HOW TO CONTACT PHYSICIAN - Physician's office phone number given to patient, if after hours patientinstructed to call straw hat washer operator and ask for acquisition cost estimator prepared foods service team member onc resident. RANJEET program offered to patient: No, Additional teaching as indicated by patient/family learning needs. PATIENT LEARNING EVALUATION & FOLLOW UP PLAN: Patient and/or family express understanding of upcoming surgery, pre-operative preparation, the operative process, and post-operative instructions. Follow up plan: Complete - No need for follow-up Patient has a post-op appointment scheduled: Yes, Leslie Rivera APRN. DOLORES 03/22/2022 and Fernie Rascon MD 04/20/2022 Referral (recommentation): None Educator: Luiz Laura LPN [facility] documented in this encounterPremier Health [facility]05-05-2022 Instructions* Patient Instructions* Patrizia Casey PA-C - 02/24/2022 8:56 AM EDT PATIENT PREOPERATIVE INSTRUCTIONS Fernie Hayes MD has scheduled you for your procedure at this surgery center: [facility] Scheduling Office: [phone] --[address] [place] [address]. Please read below carefully for your personalized instructions. Dietary Restrictions: - No solid food after midnight. - You may have 12 ounces of clear liquids (water, clear juices such as apple juice or gatorade, carbonated beverages, clear tea, black coffee, jello) until 2 hours before scheduled arrival at facility. Medications: Unless instructed differently below, stay on all of your medications until your surgery. Approved medications to take the morning of surgery with a sip of water: Synthroid, Protonix, Topamax If you start any new medications after today's visit, please contact the surgeon's office. Blood Thinning Medications: - Stop NSAIDS (Ibuprofen, Advil, Aleve, Motrin, Celebrex, Mobic, etc.) 7 days before surgery, as directed by your surgeon. - Do NOT stop aspirin or other anticoagulants without consulting with your materials director or prescribing physician. - Stop Vitamin E, ALL multi-vitamins, herbals and dietary supplements 7 days before surgery. - You may take Tylenol (Acetaminophen) or any of your pain medications that do not contain aspirin or NSAIDS as needed. - Lovenox bridging as instructed by physician. Important Reminders - Candy, mints, and tobacco products are NOT permitted the morning of surgery. - Hearing aids, dentures and glasses may be worn the morning of surgery. - NO jewelry, body piercings, makeup, hairpins or contacts are to be worn the day of surgery. If you develop symptoms such as a fever, cold, or flu, or have other changes to your health within TWO DAYS of scheduled surgery or the morning of surgery, please contact the surgery center above. Personal Belongings: -Please have photo ID and insurance cards. -If you do not have a copy of advance directives on file with us, please bring a copy with you on the day of surgery. - Leave ALL valuables and money at home or with family members. For Outpatient Procedures: - YOU MUST HAVE A RESPONSIBLE TRAFFIC ANALYSIS TECHNICIAN TAKE YOU HOME. A NEON SIGN SERVICER OR MAINTENANCE SHOP WELDER CANNOT BE MADE A RESPONSIBLE TRAFFIC ANALYSIS TECHNICIAN. - We recommend that a responsible person stays with you overnight to take care of you. - You cannot stay in a hotel alone after outpatient surgery. You will not be permitted to have yoursurgery, if you do not have someone to take care of you. Arrival Time for Surgery: - To obtain your arrival time for surgery, call your physician's office the day before your surgery. - If your surgery is scheduled for Monday, call the Monday before. Your surgeon s computer processing scheduler will tell you what time to call the office. - If you have not reached the departmental computer processing scheduler by 5 P.M., call [phone] after 5 P.M. the day before your surgery. Please be aware that emergency situations arise, which may delay or change your surgical time. If this happens, we will notify you as soon as possible and regret any inconvenience. If you already have an Advance Directive, please fax a copy to [phone] or email to for it to be added to your chart. If you do not have an Advance Directive, you can find the appropriate form and more information at [email or web address]. We recommend that youcomplete the Advance Directive form found on the website and bring it with you the day of your surgery. It can be witnessed and scanned into your chart that day. Patrizia Casey PA-C documented in this encounterPremier Health [facility]05-05-2022 History and physical note * Patrizia Casey PA-C - 02/24/2022 8:50 AM EDT Surgeon: Fernie Hayes MD Type of surgery: LAPAROSCOPIC HYSTERECTOMY TOTAL FOR UTERUS 250 G OR LESS W/REMOVAL TUBE(S) AND/OR OVARY(S) Patient scheduled for surgery on 03/08/22 . Surgery Location: [facility] Diagnosis: Pre-op evaluation (primary encounter diagnosis) Fibroids BP 101/61 Pulse 93 Temp (Src) 98.1 (Temporal) Ht 5' 4 (1.63m) Wt 130 lb (59.0kg) SpO2 100% LMP 02/16/2022 BMI 22.30 kg/(m^2). H&P completed on 02/21/[address] Barker Denies recent fever, chills, illness, pneumonia, chest pain or shortness of breath. Patient denies any changes in health or any new symptoms since visit with provider. ACTIVE PROBLEM LIST H/O Protein C Deficiency H/O Protein S Deficiency Migraines Malignant Melanoma (Hcc) History of Dvt (Deep Vein Thrombosis) Hypothyroidism PAST MEDICAL HISTORY Diagnosis Date Anxiety and depression DVT (deep venous thrombosis) (HCC) GERD (gastroesophageal reflux disease) H/O protein C deficiency H/O protein S deficiency History of DVT (deep vein thrombosis) 10/04/2021 Hypothyroid Malignant melanoma (HCC) Melanoma (HCC) Migraines Other specified hypothyroidism 10/04/2021 Social History Tobacco Use Smoking status: Former Smoker Packs/day: 1.00 Years: 22.00 Pack years: 22.00 Types: Cigarettes Quit date: 03/23/2016 Years since quittin.9 Smokeless tobacco: Never Used Vaping Use Vaping Use: Never used Substance Use Topics Alcohol use: Not Currently Drug use: Never cyclobenzaprine (FLEXERIL) 10 mg tablet Take 10 mg by mouth as needed. enoxaparin (LOVENOX) 60 mg/0.6 mL syrg Inject 0.562 mL subcutaneously every [address] (PROTONIX) 40 mg tablet TAKE 1 TABLET BY MOUTH EVERY DAY 30 MIN BEFORE A MEAL polyethylene glycol 3350 (MIRALAX, GLYCOLAX) 17 gram/dose powder Take 17 g by mouth once daily. topiramate (TOPAMAX) 100 mg tablet TAKE 1 TABLET BY MOUTH TWICE A DAY apixaban (ELIQUIS) 5 mg tab(s) Take 1 tablet by mouth twice daily. levothyroxine (SYNTHROID) 112 mcg tablet TAKE 1 TABLET BY MOUTH EVERY DAY ondansetron orally disintegrating (ZOFRAN ODT) 4 mg disintegrating tablet Take 1 tablet by mouth every 8 hours as needed for nausea/vomiting. fluticasone (FLONASE) 50 mcg/actuation nasal spray INSTILL ONE SPRAY INTO EACH NOSTRIL ONCE A DAY eletriptan (RELPAX) 20 mg tablet Take 1 tablet by mouth as needed for Migraine Headache (see administration instructions). may repeat in 2 hours if necessary ibuprofen (MOTRIN) 200 mg tablet Take 600 mg by mouth three times daily. ALLERGIES Allergen Reactions Latex Rash Penicillins Anaphylaxis Toradol [Ketorolac] Swelling Tongue swelling COVID VACCINATION STATUS: Fully vaccinated PHYSICAL EXAMINATION: Alert and oriented, No acute distress, Healthy appearance Lungs clear to auscultation. No wheezing, rhonchi, rales. RRR without murmur, gallop, or rubs. No ectopy Laboratory and Testing: Lab Value Units Date High Low HB 11.2 g/dL 09/22/2021 16.0 12.0 HCT 34.4 % 09/22/2021 48.0 36.0 WBC 4.9 x10(3) 09/22/2021 10.0 4.5 PLT 245 X10(3) 09/22/2021 450 150 NA No results within date range. K No results within date range. GLUC No results within date range. BUN No results within date range. CREAT No results within date range. PTSEC No results within date range. INR No results within date range. APTT No results within date range. ALT No results within date range. AST No results within date range. TBILI No results within date range. TSH 4.09 uIU/mL 09/22/2021 4.200 0.270 Lab Value Units Date High Low HCGQT No results within date range. UHCG No results within date range. HCG, BODY* No results within date range. Lab Value Units Date High Low ABORHD No results within date range. ABSCREEN No results within date range. Recent Results (from the past 8760 hour(s)) ECG COMPLETE Collection Time: 02/21/22 9:23 AM Result Value Ventricular Rate 77 Atrial Rate 77 P-R Interval 160 QRS Duration 80 QT Interval 360 QTC Calculation (Bazett) 407 Calculated P [place] 40 Calculated R [place] 68 Calculated T [place] 62 Impression NORMAL SINUS RHYTHM NORMAL ECG No results found for this or any previous visit (from the past 25939 hour(s)). 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 STOP BANG Score: Criteria: Snoring Score = 1 ANESTHESIOLOGY REVIEW: MOUTH OPENING/TMJ : Full jaw ROM MICROGNATHIA/OVERBITE: no MP SCORE: MP 3 UPPER LIP BITE TEST: Class I - Lower incisors can bite the upper lip above the matilda line DENTITION: Edentulous/dentures THYROMENTAL DIST: WNL SHORT NECK: No NECK FLEX: Full ROM NECK EXTENSION: Full ROM INTUBATION HISTORY: history of general anesthesia without difficulty ADVERSE ANESTHESIA EVENT: no history of adverse event ANESTHETIC OPTIONS: Final anesthesia management options will be discussed on day of surgery. PAIN MANAGEMENT OPTIONS: Final pain management plan will be discussed on the day of surgery. Cardiac Consult with on 02/21/22 IMPRESSION: Ms. 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 Occasional leg swelling after standing for long time wears support stockings no PE. Last DVT one and half year ago while on coumadin however patient would get DVT despite INR 6.0 During no HTN no DM no post heart failure nor depression. Very active person can work 5 days a week upto 24k steps a day for 12 hours no dyspnea no chest pain no fatigue no orthopnea no PND no Rheumatic fever PLAN AND RECOMMENDATIONS: Patient has good exercise capacity and is at low risk for any major cardiac events with Hysterectomy. However known hypercoagulability disorder and multiple DVT episodes. Would recommend stop [id number] hours prior to procedure and transition to Lovenox 60 mg S/Q BID and can stop Lovenox 12 hours prior to surgery. Eliquis can be restarted post op when deemed safe by Surgery. Dispense Lovenox s/q 60 mg BID OPTIMIZATION STATUS: Patient optimization pending labs ASA Class: 3 Partizia Casey PA-C February 24, 2022 8:48 AM documented in [facility] Instructions* Patient Instructions* Luiz Laura, GERALD - 02/23/2022 4:37 PM EDT MINIMALLY INVASIVE GYNECOLOGIC SURGERY (MIGS)/BENIGN GYNECOLOGY CONTACTS: Surgeons: Dr. Magalys Barakat Dr. Fernie Srivastava Dr. Dina Germain Dr. Cristina Gan Dr. Jessica Archre Dr. Mireya Bowles Nurse Practitioners: Leslie Rivera, DATA SCIENCE AND IOT MANAGER.PREPARED FOODS SERVICE TEAM MEMBER Steff Wheeler, DATA SCIENCE AND IOT MANAGER.PREPARED FOODS SERVICE TEAM MEMBER Mari Macias, DATA SCIENCE AND IOT MANAGER.PREPARED FOODS SERVICE TEAM MEMBER Rhonda Restrepo, DATA SCIENCE AND IOT MANAGER.PREPARED FOODS SERVICE TEAM MEMBER Surgery Scheduling Office: After hours phone number: or toll free Ask the straw hat washer operator to page the prepared foods service team member acquisition cost estimator.' Business hours are Monday - Monday from 8:00am - 4:30pm. We are closed on weekends and major holidays. PRE-OPERATIVE CHECKLIST: PATIENT INSTRUCTIONS PRIOR TO SURGERY Our guidelines have changed, so please read these instructions carefully. Your surgery may be cancelled if you do not follow these instructions. MY ARRIVAL TIME IS: PATIENTS WITH DELAYED STOMACH EMPTYING: [] I have been instructed not to have anything to eat or drink after midnight prior to my surgery (this includes no gum, mints, smoking). No alcohol the day before or day of surgery. PATIENTS WITHOUT DELAYED STOMACH EMPTYING: [] I have been instructed not to have any solid food to eat after midnight prior to my surgery (this includes no gum, mints, smoking). [] I am allowed to drink small amounts (up to 12 oz) of clear liquids up until 2 hours prior to my ARRIVAL TIME. [] Clear liquids include water, fruit juices without pulp, carbonated beverages (i.e. isreal anmol), electrolyte beverages (i.e. Gatorade), clear tea and black coffee, clear broth, popsicles and jello.(No milk). No alcohol the day before or day of surgery. [] I will bring this binder to all pre and post-operative appointments AND day of surgery. MEDICATION STOPPAGE: [] I will not wear jewelry, body piercing(s), makeup, nail argentine, hairpins, or contacts on the dayof surgery. I am to leave valuables and money at home or with family members. []Unless my surgeon tells me differently, I will STOP THESE MEDICATIONS 7 DAYS PRIOR TO SURGERY: (Motrin/Ibuprofen/Naproxen/Aleve/Advil), Aspirin, vitamin E, herbal medications, diet pills, and [id number] medications. Tylenol (acetaminophen) is okay. [] If I am prescribed inhalers for breathing, I will use them and bring them to the hospital. Medication(s) to be taken on the morning of surgery with a few sips of water: []If I am taking any of the following blood thinning medications Aspirin, clopidogrel (Plavix), ticagrelor (Brilinta), prasugrel (Efficient), ticlodipine (Ticlid), warfarin (Coumadin), dibigatran (Pradaxa) or rivaroxaban (Xarelto) - I will discuss whether or not I should stop them before surgery with my Surgeon. Discuss medication changes with your materials director or primary care physician as well. []If I stopped taking my blood-thinning medication, I will ask the surgeon when to resume taking it. [] If I am an outpatient, a responsible person will drive me home and it was suggested that someonestay with me for 24 hours. []I understand that a hr business partner or cabdriver is NOT a responsible caregiver. []Patients with diabetes, I will not take my morning diabetes medication (pills) on the morning of surgery. If I am on insulin, someone has gone over those instructions with me for the morning of surgery. I understand if my surgery is delayed, I will notify the check in desk that I have diabetes. See the Diabetic Guidelines Before Surgery in the patient education section. [] If I have Obstructive Sleep Apnea and am on a CPAP/BiPAP machine, I will bring my mask, tubing and machine with me on the day of surgery. []To find out my arrival time for surgery, I must call my surgical instrument mechanic after 2pm the day before surgery. [] Pain management education material found in Your Surgical Guide was reviewed with me. Preoperative instructions given by: TWISTING DEPARTMENT END FINDER PREOP INSTRUCTIONS PRE-OPERATIVE CHECKLIST - See Pre-Operative Checklist (either attached or in Your Surgical Guide Book) THE DAY OF SURGERY/CHECK IN Surgical patients will be instructed to check in at J1-9. They should arrive through the [facility] entrance ( building). The most convenient parking garage is the P[address] (JJ) garage on [address] between [address] Mud Boss is also available for purchase at the entrance. INFECTION PREVENTION - Please notify your doctor if you have any signs of an infection (i.e. fever, severe cough, nasal congestion, pain with urination, abnormal vaginal discharge, etc). - Shower the night before surgery AND the morning of surgery with Hibiclens (provided by your surgeon). If you are allergic to Hibiclens or unable to obtain the Hibiclens, please wash with antibacterial soap. Wash your body from the neck down, focusing on your abdomen, belly button and external genitalia. Do not forget to scrub any skin folds and creases. - No lotions, oils, creams, or powders after your shower. Face lotion is okay. Underarm deodorant is okay. - No shaving (abdominal or pubic hair) or douching the day before surgery. - Hand washing is extremely important in preventing infection (for both you as the patient and for the caregivers). HOSPITALIZATION - Before you leave the hospital, you typically need to be able to eat/drink, urinate, and have yourpain controlled with oral medication. Your surgeon or other members of your surgeon s team will discuss any other specific medical issues related to your discharge with you. - Your surgeon may order intermittent compression sleeves. These are massaging leg pumps to help prevent blood clots after surgery. - It is also very important that you walk as soon as possible and as frequently as possible after surgery. This will help decrease your risk of blood clots, exercise your lungs and speed up your recovery after surgery. - If you are admitted to the hospital overnight, you will be given an incentive spirometer, which is a breathing machine that will help make sure that you are taking deep breaths and expanding your lungs while in the hospital. [facility] TEAM - At the [facility], we have a multidisciplinary team of caregivers that includes fellows, residents, nurse practitioners (car salter), physician assistants (PAs), clinical nurse specialists (CNSs), nurses, medical assistants (MAs), patient care nursing assistants (PCNAs), social workers, case finishing machine adjuster and many others. We all have different roles and responsibilities but we are all here to help you. MINIMALLY INVASIVE HYSTERECTOMY POSTOPERATIVE INSTRUCTIONS ACTIVITY * No heavy lifting/pushing/pulling for 6 weeks. Do not lift anything more than 10 lbs (such as laundry, groceries, children, pets), vacuum, push heavy doors or grocery carts, etc, for 6 weeks. * You may climb stairs as tolerated. * Do not put anything in the vagina for at least 6 weeks after surgery unless otherwise instructed by your doctor (including tampons, douching, sexual intercourse, etc). * No driving for 1 week after surgery and not while taking narcotic pain medication. Drive defensively when you are ready. * Avoid sitting or lying in bed for more than 2 hours at a time while you are awake to reduce your risk of blood clots. * You may return to work when you are ready as long as you do not lift more than 10 pounds for 6 weeks. - If you have a sedentary job or die try out worker stamping 1-2 weeks before returning to work is appropriate. - You may return to work in 2-4 weeks if your job requires a lot of movement. - Please contact your doctor if you need any return to work letters or medical leave paperwork to be completed. WOUND CARE * If you had a laparoscopic or robotic hysterectomy, you will have small incisions on your abdomen.There will be dissolvable stitches under your skin that do not need to be removed. If you have bandaids or tegaderms on your incisions, these may be removed when you shower. If you have steri-strips(paper tape) on the incisions, these may be removed in about 1-2 weeks. It is OK to remove them if they are falling off. If skin glue is present, leave in place for at least 2 weeks. * Shower daily after surgery. Clean your incision with mild antibacterial soap and water. Pat your incision dry with a clean towel. * No tub baths or swimming pools for six weeks or until wound is completely healed. * No ointments or antibacterial creams are required for incisions. Do NOT use cleansing agents likealcohol or hydrogen peroxide. * Wash your hands frequently, especially before touching your incision or changing any dressings. PAIN MANAGEMENT * Take your oral pain medication as needed. * Alternate Tylenol and ibuprofen/Motrin (if you are eligible). Each of these medications can be taken every six hours. Try to stagger them so that you are taking something for pain every three hours(ex. Take Motrin at 12:00, Tylenol at 3:00, Motrin at 6:00, etc.) to maximize pain relief. You should be taking 600mg of ibuprofen every 6 hours (3 OTC tablets). You should be taking 1,000mg of tylenol every 6 hours (2 OTC extra strength tablets). You should take every 6 hours with staggering and alternating. For example. 9am - ibuprofen 12pm - tylenol 3pm - ibuprofen 6pm - tylenol 9pm - ibuprofen 12am - tylenol 3am - ibuprofen 6am - tylenol Studies show this is as effective as narcotics for pain control without the side effects. * The maximum dose of Tylenol is 3000 mg in 24 hours, the maximum dose of Motrin/ibuprofen is 2400mg in 24 hours * Some pain medications can cause constipation. We recommend a stool softener (i.e. Colace) while you take these medications. * There is a risk for addiction with narcotic pain medication, so take with caution and do not takemore than the recommended amount. * Please be sure to dispose of leftover pain medication after you have recovered. You may dispose of unused narcotic medications in the trash with an unpleasant substance such as coffee grounds or cat litter or you can turn them in to a designated law enforcement/pharmacy narcotic box. You can alsocheck FDA.gov to assess which medications can be safely flushed down the toilet. * There are locations to dispose of unused medications at three [facility] locations: [facility] pharmacy, [facility] pharmacy, and the Pharmacy at the [facility] for [facility] (inside the parking garage on the first floor). WHAT TO EXPECT AT HOME * Recovery from surgery is generally 2-4 weeks, but sometimes longer for more strenuous activity. It is normal to be very tired during this time. * It is normal to have some drainage or a small amount of vaginal bleeding after surgery that wouldrequire the use of a light pantiliner. This discharge may last up to 6 weeks. The bleeding and discharge should be light and should have no odor. * You may experience gas pain, abdominal swelling, or shoulder pain for 24-72 hours after surgery. This is from the carbon dioxide gas put into your abdomen to better visualize your organs. A warm shower, heating pad, and/or walking may help. WHEN TO CALL YOUR DOCTOR: * Fever (>100.4 F or 38.0 C) or chills. * Incision problems such as redness, warmth, swelling, or foul smelling drainage. * Severe nausea or persistent vomiting. * Bright red vaginal bleeding (soaking >1 pad/hour) or foul smelling vaginal drainage. * IT IS NORMAL TO HAVE A MINIMAL AMOUNT OF VAGINAL SPOTTING OR VAGINAL DISCHARGE FOR SEVERAL WEEKS * Severe pain not relieved with pain medication. * Pain and swelling in your legs, especially if it is only on one side. * Pain with urination, cloudy urine, or foul smelling urine. * Severe redness/irritation at sites where adhesive bandages were applied. * Or if you have any other problems or questions. SHOULD YOU REQUIRE TO GO TO THE Emergency Room: * Please go to [facility] ER - [id number] [phone] where our [facility] team can best serve you FREQUENTLY ASKED QUESTIONS/CONCERNS: Constipation Constipation is common and it is normal to not have a bowel movement for up to one week after surgery. You should still be passing gas despite constipation and should be able to tolerate both liquid and solid food without nausea or vomiting. Concerning symptoms would be constipation without gas, with fever, or nausea/vomiting and inabilityto eat. Call your doctor if these symptoms occur. Some of your pain medications may cause constipation. You should not strain to have a bowel movement. Your stool should be formed and solid, but also soft and easy to pass. You may not have a bowel movement for 3-7 days after surgery. This is normal. To help prevent constipation after your surgery take: Colace (docusate sodium) 100 mg (1 capsule) two times a day If you have not had a bowel movement 3 days after surgery, you may take the Miralax two times a day. Miralax (polyethylene glycol) 17 g (1 measured capful or 1 packet) once a day. If you have any discomfort because of the need to have a bowel movement, you may add milk of magnesia or magnesium citrate (available at your local pharmacy without a prescription) at any time. Do not take milk of magnesia or magnesium citrate if you have kidney failure. Drainage from incisions Clear/pink drainage or a minimal amount of bleeding from incisions can be normal after laparoscopicsurgery. Concerning drainage that is persistent, thick/cloudy, or foul smelling can be an indication of infection and should prompt you to call your doctor. Post-operative pain Pain after surgery is a challenging part of the healing process. Pain may be present for weeks but should gradually get better. Increasing pain or pain that is unbearable warrants evaluation by your doctor or in the emergency department. By state law we cannot immediately provide narcotic pain medication over the phone. Stitches If 2 weeks have passed and you have a visible stitch at a laparoscopic incision site it is OK for you to cut it to remove it. CALL 911 OR GO TO THE EMERGENCY ROOM IF YOU HAVE: Any shortness of breath, difficulty breathing, orchest pain. documented in this [facility] History of Present illness Narrative* Julio Barker MD - 02/21/2022 9:15 AM EDT Images from the original note were not included. [facility] [place] Department of Cardiovascular Medicine SECTION OF INTERVENTIONAL CARDIOLOGY OUTPATIENT VISIT DATE February 18, 2022 OUTPATIENT VISIT TYPE CONSULTATION PRIMARY CARE PHYSICIAN: [place] [address] REFERRING PHYSICIAN SELF CHIEF COMPLAINT: Pre op hysterectomy 03/08 HISTORY OF PRESENT ILLNESS: Cardiac consultation at the request of Dr. Angela.A copy of this consultation note will be provided to the requesting physician by way of shared Medical record or letter to requesting physician via US mail. Ms. Calix is a 41 year old female who is seen today for . NURSING INTAKE: PMHX Hypothyroid H/o DVT H/o smoking Protein C deficiency Protein S deficiency Migraines 09/22/21 TSH 4.09 WBC 4.9 HGB 11.2 HCT 34.4 Platelet 245 Risk factors for coronary artery disease history of smoking She denies chest pain, shortness of breath, dyspnea on exertion, orthopnea, PND, palpitations, lightheadedness, syncope, cough and wheezing. Pts left leg swells only when she works 12+ hours, it also causes pain. Does hav history of Blood clots Diet / Nutrition: No Weight: no change since last visit Exercise: No but does get 10-20k steps per day. * PAST MEDICAL HISTORY Diagnosis Date Anxiety and depression DVT (deep venous thrombosis) (HCC) GERD (gastroesophageal reflux disease) H/O protein C deficiency H/O protein S deficiency History of DVT (deep vein thrombosis) 10/04/2021 Hypothyroid Malignant melanoma (HCC) Melanoma (HCC) Migraines Other specified hypothyroidism 10/04/2021 PAST SURGICAL HISTORY Procedure Laterality Date SECTION SINGLE 1997 ESOPHAGOGASTRODUODENOSCOPY TRANSORAL DIAGNOSTIC 03/23/2013 EGD EXCISION MELANOMA HAND SURGERY HX Left trigger finger release 3 rd finger HYSTEROSCOPY, DIAGNOSTIC (SEPARATE 10/18/2021 IR IVC FILTER PLACEMENT 2011 TONSILLECTOMY & ADENOIDECTOMY <AGE 11 SOCIAL HISTORY Social History Tobacco Use Smoking status: Former Smoker Packs/day: 1.00 Years: 22.00 Pack years: 22.00 Types: Cigarettes Quit date: 03/23/2016 Years since quittin.9 Smokeless tobacco: Never Used Vaping Use Vaping Use: Never used Substance Use Topics Alcohol use: Not Currently Drug use: Never FAMILY HISTORY Problem Relation Age of Onset Clotting Disorder Father Protein C and S deficiency No Known Problems Mother Clotting Disorder Paternal Grandfather Anesthesia Problems No Family History ALLERGIES: ALLERGIES Allergen Reactions Latex Rash Penicillins Anaphylaxis Toradol [Ketorolac] Swelling Tongue swelling MEDICATIONS: cyclobenzaprine (FLEXERIL) 10 mg tablet Take 10 mg by mouth as needed. pantoprazole DR (PROTONIX) 40 mg tablet TAKE 1 TABLET BY MOUTH EVERY DAY 30 MIN BEFORE A MEAL polyethylene glycol 3350 (MIRALAX, GLYCOLAX) 17 gram/dose powder Take 17 g by mouth once daily. topiramate (TOPAMAX) 100 mg tablet TAKE 1 TABLET BY MOUTH TWICE A DAY apixaban (ELIQUIS) 5 mg tab(s) Take 1 tablet by mouth twice daily. levothyroxine (SYNTHROID) 112 mcg tablet TAKE 1 TABLET BY MOUTH EVERY DAY ondansetron orally disintegrating (ZOFRAN ODT) 4 mg disintegrating tablet Take 1 tablet by mouth every 8 hours as needed for nausea/vomiting. fluticasone (FLONASE) 50 mcg/actuation nasal spray INSTILL ONE SPRAY INTO EACH NOSTRIL ONCE A DAY eletriptan (RELPAX) 20 mg tablet Take 1 tablet by mouth as needed for Migraine Headache (see administration instructions). may repeat in 2 hours if necessary ibuprofen (MOTRIN) 200 mg tablet Take 600 mg by mouth three times daily. REVIEW OF SYSTEMS: GENERAL: no fever, no chills and no change in weight HEENT: no headaches, no hearing loss, no difficulty swallowing, no visual changes, no nose bleeds SKIN: no rashes, no lesions and no ulcers RESPIRATORY: no cough, no shortness of breath, no dyspnea on exertion, no orthopnea, no paroxysmal nocturnal dyspnea, no asthma and no COPD CARDIOVASCULAR: no chest pain, no dizziness and no syncope GASTROINTESTINAL: no abdominal pain, no nausea, no vomiting, no difficulty or painful swallowing and no melanotic stools GENITOURINARY: no dysuria, no frequency and no nocturia MUSCULOSKELETAL: no joint pain, no joint swelling, no muscle pain or myalgias and no pain with walking NEUROLOGIC: no numbness, no tingling and no sensation of pins and needles HEMATOLOGY: no bruising easily, no prolonged bleeding, no anemia and no cancer ENDOCRINE: no polyuria, no polydipsia, no goiter, no diabetes, cold or heat intolerance and thyroiddisease PSYCH: no sleep disturbance, no mood disorders and no recent psychosocial stressors PHYSICAL EXAMINATION: BP 102/63 Pulse 84 Ht 5' 4 (1.63m) Wt 124 lb (56.2kg) SpO2 100% LMP 10/03/2021 BMI 21.27 kg/(m^2). Pallor JVD 5 cms s1 s2 normal no s3 no s4 CTA bilaterally Legs no edema No calf tenderness Neuro defecit CARDIOVASCULAR MEDICINE TESTING: EKG 02/21/22 IMPRESSION: Ms. 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 Occasional leg swelling after standing for long time wears support stockings no PE. Last DVT one and half year ago while on coumadin however patient would get DVT despite INR 6.0 During no HTN no DM no post heart failure nor depression. Very active person can work 5 days a week upto 24k steps a day for 12 hours no dyspnea no chest pain no fatigue no orthopnea no PND no Rheumatic fever PLAN AND RECOMMENDATIONS: Patient has good exercise capacity and is at low risk for any major cardiac events with Hysterectomy. However known hypercoagulability disorder and multiple DVT episodes. Would recommend stop Eyexwbl12 hours prior to procedure and transition to Lovenox 60 mg S/Q BID and can stop Lovenox 12 hours prior to surgery. Eliquis can be restarted post op when deemed safe by Surgery. Dispense Lovenox s/q 60 mg BID I personally interviewed, confirmed and edited the above information as obtained by others. Please call me if any questions Julio Barker MD CONTACT INFORMATION: [facility] Miscellaneous Notes* Telephone Encounter - Pauline Enciso MA - 02/16/2022 7:57 AM EDT Pharmacy requesting refill: Next appointment 03/23/22 Pending Prescriptions Disp Refills PANTOPRAZOLE 40 MG TABLET,DELAYED RELEASE 90 tablet 1 Sig: TAKE 1 TABLET BY MOUTH EVERY DAY 30 MIN BEFORE A MEAL INGRID: Yes Date of last visit:12/22/2021 Phone #: [phone] (home) [phone] (cell) The patients preferred pharmacy has been captured for this encounter? Yes Pauline Enciso MA documented in [facility] NoteHNO ID: [id number] Author: Isaac Patel DO Service: Anesthesiology Author Type: Resident Type: Anesthesia Procedure Notes Filed: 10/18/2021 2:48 PM Note Text: ANESTHESIOLOGY PROCEDURE NOTE Airway General Information Procedure Start Time/Medication Administration: 10/18/2021 2:40 PM Patient location during procedure: OR Timeout Performed Pre-procedure: timeout performed Consent Obtained: Yes Patient identity confirmed: arm band and patient sedated or unresponsive Staffing Resident: Isaac Patel DO Performed by: resident Indications and Patient Condition Preoxygenated: yes Patient position: sniffing Indications for airway management: anesthesia anesthesia circuit Method: asleep Final Airway Details Final airway type: supraglottic airway Number of attempts at approach: 1 Final Supraglottic Airway: i-gel Size 4 Seal Adequate: yes Failed airway: no Unrecognized esophageal intubation: no Airway not difficult SIGNATURE: Isaac Patel DO PATIENT NAME: Suha Calix DATE: October 18, 2021 TIME: 2:47 PM CSN: [id number] History of Present illness Narrative* Debbie Hauser MD - 07/27/2021 1:47 PM EDT DATE OF SERVICE: 07/24/2021 HISTORY OF PRESENT ILLNESS: A 41-year-old female with a chief complaint of low back pain and blood in her urine. Said this morning, she woke up and saw blood in her urine and she has been having pain on both sides of her lower back. She is not having any urinary frequency, urgency with it. It does burn when she urinates. She denies any fevers, chills, cough, runny nose, nasal congestion. PAST MEDICAL HISTORY: She has a history of blood clots in her legs, pneumonia, depression, frequent headaches, hypothyroidism, GERD and IBS. MEDICATIONS: 1. Eliquis. 2. Synthroid. 3. Protonix. 4. Topiramate. 5. Flonase. 6. Almotriptan. 7. Ibuprofen. 8. MiraLAX. ALLERGIES: PENICILLIN, TORADOL, LATEX. SOCIAL HISTORY: No tobacco or alcohol use. FAMILY HISTORY: Hypertension. PHYSICAL EXAMINATION: Vital signs are within normal limits. She is in no acute distress. Heart: Regular rate and rhythm. No murmurs, rubs or gallops. Abdomen: Soft, tender in the suprapubic region. No rebound, guarding or rigidity. She has no CVA tenderness to percussion. Urinalysis shows yellow clear urine with a pH of 7, urobilinogen of 0.2, blood of 10. Urine sent for culture and sensitivity. KUB is negative for nephrolith or ureterolith. ASSESSMENT: Recurrent urinary tract infection. PLAN: Bactrim Double Strength twice daily for 5 days. Tylenol for pain. Hydration. Debbie Hauser MD /[id number] SSI File#: [id number] END OF DOCUMENT / CHANGE LOG FOLLOWS Last Edited By Dl. Signed By Debbie Hauser MD, Marsha M MD #[id number] on 07/28/2021 17:16 ET on 07/28/2021 17:16 ET Revision Number - 2 ^^^ Verified/Reviewed by 07/28/[address] [facility] PATIENT NAME: SUHA CALIX [address] MEDICAL REC #: [id number] [place] [address] [facility] REPORT STATCARE PHYSICIAN documented in this [facility] NoteHNO ID: [id number] Author: Vannessa Tan PA-C Service: ? Author Type: Physician Toggle Press Operator Type: Progress Notes Filed: 05/31/2021 4:32 PM Note Text: VIRTUAL VISIT PROGRESS NOTE This is a virtual visit using [employer] video visit. It required patient-provider interaction for the medical decision making as documented below. Suha Calix is a 41 year old female seen for AUB. H/o Protein C deficiency and Protein S deficiency, DVT. H/o heavy periods. Her physician has attempted to place an IUD on 05/17/21. Notes Discussed with patient the findings. Cervix stenotic in the context of a retroverted uterus. Discussed diagnostic hysteroscopy and IUD placement vs trial of misoprotol and reattempt. Given her history of clotting disorder, she is wondering if there is a higher level hospital that she can get these procedures. She is also asking for second opinion on endometrial ablation vs hysterectomy. Thus plan to send patient to minimally invasive surgery in [facility] or [place]. ?Alex Perez MD, MPH ? Since starting ELIQUIS, pt's periods became heavier. Cycle length went from 28 days to 21 days since February-March 2021 (that's when she was started on ELIQUIS). Uses a tampon and a pad every hour, when the bleeding is the worst LMP: Patient's last menstrual period was 05/19/2021 (approximate). cycles every 21 days and 5 days of flow Heavy bleeding? Yes Intermenstrual bleeding/spotting? No Dysmenorrhea? Yes, Left Pelvic pain during periods and midcycle History of fibroids? Yes History of endometrial polyps? No US done on 05/03/21 Position: retroverted Endometrial thickness, total 10.4 mm Small fibroid in the lower uterine segment. ?Size 14 mm x 5 mm x 7 mm. Mean 8.7 mm. Vol 0.260 cm? 8.7 mm. Vol 0.260 cm Sexually active: Yes History of STDS: None Patient concerns for STD exposure: No. Pain with intercourse: yes, mild pain Postcoital bleeding: No Last Pap: 2019 normal HPV: negative History of abnormal pap: No HISTORY REVIEWED (electronic chart updated): PAST MEDICAL HISTORY Diagnosis Date - GERD (gastroesophageal reflux disease) - H/O protein C deficiency - H/O protein S deficiency - Malignant melanoma (HCC) - Migraines PAST SURGICAL HISTORY Procedure Laterality Date - SECTION SINGLE 1997 - EGD W/O OR W/BRUSH/WASH 03/23/2013 EGD - EXCISION MELANOMA - HAND SURGERY HX Left trigger finger release 3 rd finger - IR IVC FILTER PLACEMENT 2010 - REMOVE TONSILS/ADENOIDS,<12 Y/O FAMILY HISTORY Problem Relation Age of Onset - No Known Problems Mother - Clotting Disorder Father Protein C and S deficiency - Clotting Disorder Paternal Grandfather Social History Tobacco Use - Smoking status: Former Smoker Packs/day: 1.00 Years: 23.00 Pack years: 23.00 Types: Cigarettes Quit date: 03/23/2016 Years since quittin.1 - Smokeless tobacco: Never Used Vaping Use - Vaping Use: Never used Substance Use Topics - Alcohol use: Not Currently - Drug use: Never Current Outpatient Medications Medication Sig - levoFLOXacin (LEVAQUIN) 500 mg tablet Take 1 tablet by mouth once daily for 5 days. - levothyroxine (LEVOXYL) 100 mcg tablet Take 1 tablet by mouth once daily. - pantoprazole DR (PROTONIX) 40 mg tablet Take 1 tablet by mouth once daily. 30 minutes before eating. - fluticasone (FLONASE ALLERGY RELIEF) 50 mcg/actuation nasal spray Use 1 [place] in each nostril once daily. - polyethylene glycol 3350 (MIRALAX) 17 gram/dose powder Take 17 g by mouth once daily. Dissolve dose in 4 - 8 ounces of liquid and take as directed. - apixaban (ELIQUIS) 5 mg tab(s) Take 1 tablet by mouth twice daily. - TOPIRAMATE ORAL Take 100 mg by mouth twice daily. - eletriptan (RELPAX) 20 mg tablet Take 20 mg by mouth as needed. may repeat in 2 hours if necessary - ibuprofen (MOTRIN) 200 mg tablet Take 600 mg by mouth three times daily. No current facility-administered medications for this visit. ALLERGIES Allergen Reactions - Latex Rash - Penicillins Anaphylaxis - Toradol [Ketorolac] Swelling Tongue swelling REVIEW OF SYSTEMS: No recent weight gain or weight loss. Abdomen: No abdominal pain, nausea, vomiting, diarrhea, or constipation. No bloating, early satiety, indigestion, or increased flatulence. Bladder: No dysuria, gross hematuria, urinary frequency, urinary urgency, or incontinence. ASSESSMENT/PLAN: 1. Menorrhagia with regular cycle - ICD9: 626.2, ICD10: N92.0 (primary diagnosis) - CONSULT TO GYNECOLOGY - wishes to discuss treatment options 2. H/O protein C deficiency - ICD9: V12.3, ICD10: Z86.2 - CONSULT TO GYNECOLOGY 3. H/O protein S deficiency - ICD9: V12.3, ICD10: Z86.2 - CONSULT TO GYNECOLOGY RASHARD Johnson (more content not included)...[facility]10-05-2020 History of Present illness Narrative* Roxana Coles PA-C - 07/27/2020 2:27 PM EDT DATE OF SERVICE: 07/25/2020 The patient was seen and examined by Roxana Coles PA-C, for a chief complaint of ear pain, cough, congestion, headache. HISTORY OF PRESENT ILLNESS: Patient reports that since about last weekend, she has been having sinus congestion, pain, pressure, postnasal drainage, sore throat, headache. States the last few days, it has just become more severe to where when she is bending forward, she is getting significant pressure in her sinus, and it is making her dizzy. She was supposed to work a 12-hour shift today. States that she just feels so unwell she was not going to make it, and she decided to come in for evaluation. Otherwise, feels well. No other complaints. PAST MEDICAL HISTORY: Reviewed per nursing notes and considered. She takes: 1. Topiramate. 2. Ibuprofen. 3. Nexium. ALLERGIC: To PENICILLIN, DOXYCYCLINE, TORADOL, and LASIX. SOCIAL HISTORY: She denies tobacco or alcohol. REVIEW OF SYSTEMS: Per HPI, otherwise unremarkable. PHYSICAL EXAMINATION: This is a well-appearing 40-year-old female in no distress. Her vitals, blood pressure 119/78, pulse 82, respires 18, temperature afebrile, pulse oximetry is 99% on room air. On examination, her HEENT, remarkable for bilateral TMs are bulging with grayish fluid and erythema. She has significant pain to palpation over her maxillary and frontal sinus. Posterior pharynx has mild cobblestoning. No tonsillar enlargement or significant erythema. Her neck is supple, nontender. Full range of motion of neck. No lymphadenopathy. Heart rate and rhythm regular. Lungs are clear throughout. Skin is warm and dry without rash. CLINICAL IMPRESSION: Acute sinusitis. TREATMENT: She is prescribed Zithromax, Maya D, and Flonase. Instructed on supportive care and followup. Patient is agreeable with above plan of care. Roxana Coles PA-C SQ/[id number] SSI File#: [id number] END OF DOCUMENT / CHANGE LOG FOLLOWS Last Edited By Elec. Signed By Roxana Coles PA-C, Shannon PA-C #[email or web address] on 07/30/2020 21:16 ET on 07/30/2020 21:16 ET Revision Number - 2 ^^^ Verified/Reviewed by 07/30/202115 [facility] PATIENT NAME: SUHA CHILDERS [address] MEDICAL REC #: [id number] [place] [address] [facility] REPORT STATCARE PHYSICIAN [facility] Diagnosis Routine check-up- Primary Routine general medical examination at a health care facility Fibroids Leiomyoma of uterus, unspecified H/O protein S deficiency Personal history of diseases of blood and blood-forming organs H/O protein C deficiency Personal history of diseases of blood and blood-forming organs Abnormal uterine bleeding Unspecified disorder of menstruation and other abnormal bleeding from female genital tract documented in this encounter [facility] note* Diagnosis Preop cardiovascular exam- Primary Pre-operative cardiovascular examination Fibroids Leiomyoma of uterus, unspecified H/O protein S deficiency Personal history of diseases of blood and blood-forming organs H/O protein C deficiency Personal history of diseases of blood and blood-forming organs Abnormal uterine bleeding Unspecified disorder of menstruation and other abnormal bleeding from female genital tract documented in this encounter [facility] note* Diagnosis Pre-op evaluation- Primary Preoperative examination, unspecified Fibroids Leiomyoma of uterus, unspecified Fibroids Leiomyoma of uterus, unspecified H/O protein S deficiency Personal history of diseases of blood and blood-forming organs H/O protein C deficiency Personal history of diseases of blood and blood-forming organs Abnormal uterine bleeding Unspecified disorder of menstruation and other abnormal bleeding from female genital tract documented in this encounter [facility] note* Diagnosis Educational circumstances- Primary Educational circumstance Fibroids Leiomyoma of uterus, unspecified H/O protein S deficiency Personal history of diseases of blood and blood-forming organs H/O protein C deficiency Personal history of diseases of blood and blood-forming organs Abnormal uterine bleeding Unspecified disorder of menstruation and other abnormal bleeding from female genital tract documented in this encounter [facility] note* Diagnosis Abnormal uterine bleeding- Primary Unspecified disorder of menstruation and other abnormal bleeding from female genital tract Fibroids Leiomyoma of uterus, unspecified Fibroids Leiomyoma of uterus, unspecified H/O protein S deficiency Personal history of diseases of blood and blood-forming organs H/O protein C deficiency Personal history of diseases of blood and blood-forming organs Abnormal uterine bleeding Unspecified disorder of menstruation and other abnormal bleeding from female genital tract [facility] [place] [facility]* Diagnosis Hypothyroidism, unspecified type documented [facility] this [facility] [place] [facility]* Diagnosis Dysuria- Primary documented [facility] this [facility] [place] [facility]* Diagnosis Post-operative state- Primary Other postprocedural status S/P hysterectomy Acquired absence of both cervix and uterus Endometriosis determined by laparoscopy documented [facility] this encounter [facility] [place] [facility]* Diagnosis Hypothyroidism, unspecified type- Primary Elevated glucose Other abnormal glucose History of DVT (deep vein thrombosis) Personal history of venous thrombosis and embolism H/O protein C deficiency Personal history of diseases of blood and blood-forming organs H/O protein S deficiency Personal history of diseases of blood and blood-forming organs documented in this encounter [facility] [place] [facility]* Diagnosis Screening for tuberculosis- Primary Screening examination for pulmonary tuberculosis documented [facility] this [facility] [place] [facility] Diagnosis Screening for tuberculosis- Primary Screening examination for pulmonary tuberculosis documented in this encounter [facility] [place] [facility]* Diagnosis Encounter for PPD skin test reading- Primary Other follow-up examination documented [facility] this [facility] [place] [facility]* Diagnosis Left leg pain- Primary Pain in limb Chronic deep vein thrombosis (DVT) of femoral vein of left lower extremity (HCC) Left sided sciatica Sciatica documented in this encounter [facility] [place] [facility]* Diagnosis Left sided sciatica- Primary Sciatica documented in this encounter [facility] [place] [facility]* Diagnosis Left sided sciatica- Primary Sciatica documented in this encounter [facility] [place] [facility]* Diagnosis Neck pain- Primary Cervicalgia Right leg pain Pain in limb Left leg pain Pain in limb Myofascial pain syndrome Mylagia and myositis, unspecified Other migraine without status migrainosus, not intractable documented in this encounter [facility] [place] [facility]* Diagnosis Acute cystitis without hematuria- Primary Acute cystitis documented in this encounter [facility] [place] [facility]* Diagnosis Abdominal pain, unspecified abdominal location- Primary Microcytic anemia Iron deficiency anemia, unspecified Elevated lipase Other nonspecific abnormal serum enzyme levels Bacterial sinusitis Unspecified sinusitis (chronic) Fatigue, unspecified type [facility] [place] [facility]* Diagnosis Vitamin B12 deficiency- Primary Other B-complex deficiencies [facility] [place] [facility]* Diagnosis Acute right-sided low back pain with right-sided sciatica- Primary documented in this encounter [facility] [place] [facility]* Diagnosis Right hip pain- Primary Pain in joint, pelvic region and thigh [facility] [place] [facility]* Diagnosis Right hip pain- Primary Pain in joint, pelvic region and thigh Deficiency of multiple nutrient elements Other nutritional deficiency Other iron deficiency anemia documented in this encounter [facility] [place] [facility]* Diagnosis Abdominal discomfort- Primary Abdominal pain, unspecified site Iron deficiency anemia, unspecified iron deficiency anemia type documented in this encounter [facility] [place] [facility]* Diagnosis 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 documented [facility] this encounter [facility] [place] [facility]* Diagnosis Neck pain- Primary Cervicalgia Right leg pain Pain in limb Left leg pain Pain in limb Myofascial pain syndrome Mylagia and myositis, unspecified Other migraine without status migrainosus, not intractable documented in this encounter [facility] [place] [facility]* Diagnosis Iron deficiency anemia, unspecified iron deficiency anemia type documented in this encounter [facility] [place] [facility]* Diagnosis Anemia, unspecified type- Primary Abdominal pain, unspecified abdominal location Change in bowel habits Other symptoms involving digestive system documented in this encounter [facility] [place] [facility]* Diagnosis Vitamin B 12 deficiency Other B-complex deficiencies documented in this encounter [facility] [place] [facility]* Diagnosis History of anemia- Primary Personal history of diseases of blood and blood-forming organs Abdominal discomfort Abdominal pain, unspecified site [facility] [place] [facility]* Diagnosis Hypothyroidism, unspecified type documented in this encounter [facility] [place] [facility]* Diagnosis Sacroiliitis (HCC)- Primary Sacroiliitis, not elsewhere classified Myofascial pain syndrome Mylagia and myositis, unspecified Neck pain Cervicalgia Right leg pain Pain in limb Left leg pain Pain in limb Other migraine without status migrainosus, not intractable Sacroiliitis (HCC) Sacroiliitis, not elsewhere classified documented in this encounter [facility]* Diagnosis Other fatigue- Primary History of anemia Personal history of diseases of blood and blood-forming organs Other migraine without status migrainosus, not intractable History of COVID-19 Bacterial sinusitis Unspecified sinusitis (chronic) Sacroiliitis (HCC) Sacroiliitis, not elsewhere classified documented in this encounter [facility] note* Diagnosis Vitamin D deficiency- Primary Unspecified vitamin D deficiency Sacroiliitis (HCC) Sacroiliitis, not elsewhere classified documented in this encounter [facility] note* Diagnosis Onset Date Resolution Status History of DVT (deep vein thrombosis) chronic [facility] Work Phone: Evaluation note* Diagnosis Bacterial sinusitis- Primary Unspecified sinusitis (chronic) documented in this encounter [facility] note* Diagnosis Onset Date Resolution Status History of DVT (deep vein thrombosis) chronic History of DVT (deep vein thrombosis) chronic [facility] Work Phone: Evaluation note* Diagnosis Onset Date Resolution Status History of DVT (deep vein thrombosis) chronic History of DVT (deep vein thrombosis) chronic 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 [facility] Work Phone: Evaluation note* Diagnosis Bacterial sinusitis- Primary Unspecified sinusitis (chronic) documented in this encounter [facility] note* Diagnosis Hypothyroidism, unspecified type documented in this encounter [facility] note* Diagnosis Chronic rhinosinusitis- Primary Unspecified sinusitis (chronic) Encounter for behavioral health screening Eustachian tube dysfunction, bilateral History of anemia Personal history of diseases of blood and blood-forming organs Hypothyroidism, unspecified type documented in this encounter [facility] note* Diagnosis Chest pain on respiration- Primary Painful respiration Sinusitis, unspecified chronicity, unspecified location Chest pain on respiration Painful respiration documented in this encounter [facility] note* Diagnosis Follow-up exam- Primary Unspecified follow-up examination Adjustment disorder with mixed anxiety and depressed mood Other migraine without status migrainosus, not intractable Bacterial sinusitis Unspecified sinusitis (chronic) Myofascial pain syndrome Mylagia and myositis, unspecified Chest tightness Other chest pain documented in this encounter [facility] note* Diagnosis Hypothyroidism, unspecified type documented in this encounter [facility] note* Diagnosis Sacroiliitis (HCC)- Primary Sacroiliitis, not elsewhere classified Myofascial pain syndrome Mylagia and myositis, unspecified Neck pain Cervicalgia [facility] [place] [facility] Diagnosis Adjustment disorder with mixed anxiety and depressed mood- Primary Myofascial pain syndrome Mylagia and myositis, unspecified Sinus drainage Other diseases of nasal cavity and sinuses [facility] [place] [facility] Diagnosis Neck pain Cervicalgia [facility] [place] [facility]* Diagnosis Preop examination- Primary Preoperative examination, unspecified Abnormal uterine bleeding (AUB) History of DVT (deep vein thrombosis) Personal history of venous thrombosis and embolism Other specified hypothyroidism Hypothyroidism, unspecified type- Primary Encounter for screening mammogram for breast cancer Acute right-sided low back pain with right-sided sciatica Other migraine without status migrainosus, not intractable Adjustment disorder with mixed anxiety and depressed mood Headaches Malignant melanoma, unspecified site (HCC) Chronic pain syndrome Arthralgia, unspecified joint Low serum potassium [facility] [place] [facility] Diagnosis Preop examination- Primary Preoperative examination, unspecified Abnormal uterine bleeding (AUB) History of DVT (deep vein thrombosis) Personal history of venous thrombosis and embolism Other specified hypothyroidism Chest pain on respiration Painful respiration [facility] [place] [facility]* Diagnosis Preop examination- Primary Preoperative examination, unspecified Abnormal uterine bleeding (AUB) History of DVT (deep vein thrombosis) Personal history of venous thrombosis and embolism Other specified hypothyroidism Hair thinning- Primary Alopecia, unspecified Migraine with aura and without status migrainosus, not intractable Migraine with aura, without mention of intractable migraine without mention of status migrainosus Brittle nails Other specified disease of nail Hair loss Alopecia, unspecified Acquired hypothyroidism Unspecified hypothyroidism intermediate systemic steroid user H/O protein C deficiency Personal history of diseases of blood and blood-forming organs H/O protein S deficiency Personal history of diseases of blood and blood-forming organs Encounter for immunization Need for other specified prophylactic vaccination against single bacterial disease Bacterial sinusitis Unspecified sinusitis (chronic) documented in this encounter [facility] note* Diagnosis Preop examination- Primary Preoperative examination, unspecified Abnormal uterine bleeding (AUB) History of DVT (deep vein thrombosis) Personal history of venous thrombosis and embolism Other specified hypothyroidism Acquired hypothyroidism- Primary Unspecified hypothyroidism documented in this encounter [facility] note* Diagnosis Preop examination- Primary Preoperative examination, unspecified Abnormal uterine bleeding (AUB) History of DVT (deep vein thrombosis) Personal history of venous thrombosis and embolism Other specified hypothyroidism Acquired hypothyroidism Unspecified hypothyroidism 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 H/O protein C deficiency Personal history of diseases of blood and blood-forming organs H/O protein S deficiency Personal history of diseases of blood and blood-forming organs documented in this encounter [facility] note* Diagnosis Preop examination- Primary Preoperative examination, unspecified Abnormal uterine bleeding (AUB) History of DVT (deep vein thrombosis) Personal history of venous thrombosis and embolism Other specified hypothyroidism Acute non-recurrent maxillary sinusitis- Primary documented in this encounter [facility] note* Diagnosis Preop examination- Primary Preoperative examination, unspecified Abnormal uterine bleeding (AUB) History of DVT (deep vein thrombosis) Personal history of venous thrombosis and embolism Other specified hypothyroidism Medication overuse headache- Primary Drug induced headache, not elsewhere classified Chronic daily headache Headache Chronic migraine without aura without status migrainosus, not intractable Chronic migraine without aura, without mention of intractable migraine without mention of status migrainosus documented in this encounter [facility] note* Diagnosis Preop examination- Primary Preoperative examination, unspecified Abnormal uterine bleeding (AUB) History of DVT (deep vein thrombosis) Personal history of venous thrombosis and embolism Other specified hypothyroidism Myofascial pain syndrome- Primary Mylagia and myositis, unspecified Chronic pain syndrome Neck pain Cervicalgia Other migraine without status migrainosus, not intractable documented in this encounter [facility] note* Diagnosis Preop examination- Primary Preoperative examination, unspecified Abnormal uterine bleeding (AUB) History of DVT (deep vein thrombosis) Personal history of venous thrombosis and embolism Other specified hypothyroidism Respiratory illness with fever- Primary Unspecified disease of respiratory system documented in this encounter [facility] note* Diagnosis Preop examination- Primary Preoperative examination, unspecified Abnormal uterine bleeding (AUB) History of DVT (deep vein thrombosis) Personal history of venous thrombosis and embolism Other specified hypothyroidism Respiratory illness with fever Unspecified disease of respiratory system documented in this encounter [facility] note* Diagnosis Preop examination- Primary Preoperative examination, unspecified Abnormal uterine bleeding (AUB) History of DVT (deep vein thrombosis) Personal history of venous thrombosis and embolism Other specified hypothyroidism Myofascial pain syndrome- Primary Mylagia and myositis, unspecified Neck pain Cervicalgia Sacroiliitis (HCC) Sacroiliitis, not elsewhere classified Other migraine without status migrainosus, not intractable [facility] [place] [facility]* Diagnosis Preop examination- Primary Preoperative examination, unspecified Abnormal uterine bleeding (AUB) History of DVT (deep vein thrombosis) Personal history of venous thrombosis and embolism Other specified hypothyroidism Chronic daily headache- Primary Headache Migraine without aura and without status migrainosus, not intractable Migraine without aura, without mention of intractable migraine without mention of status migrainosus Cervicalgia documented in this [facility] [place] [facility]* Diagnosis Preop examination- Primary Preoperative examination, unspecified Abnormal uterine bleeding (AUB) History of DVT (deep vein thrombosis) Personal history of venous thrombosis and embolism Other specified hypothyroidism Bacterial sinusitis- Primary Unspecified sinusitis (chronic) documented [facility] this [facility] Diagnosis Preop examination- Primary Preoperative examination, unspecified Abnormal uterine bleeding (AUB) History of DVT (deep vein thrombosis) Personal history of venous thrombosis and embolism Other specified hypothyroidism Migraine without aura, not intractable, without status migrainosus documented in this [facility] [place] [facility]* Diagnosis Preop examination- Primary Preoperative examination, unspecified Abnormal uterine bleeding (AUB) History of DVT (deep vein thrombosis) Personal history of venous thrombosis and embolism Other specified hypothyroidism Bacterial sinusitis- Primary Unspecified sinusitis (chronic) Headache, unspecified headache type Nausea Nausea alone documented in this encounter [facility] note* Diagnosis Preop examination- Primary Preoperative examination, unspecified Abnormal uterine bleeding (AUB) History of DVT (deep vein thrombosis) Personal history of venous thrombosis and embolism Other specified hypothyroidism Dysuria- Primary Urinary problem Other urinary problems Acute non-recurrent maxillary sinusitis documented in this encounter [facility] for referral (narrative)* Outpatient Procedure (Routine) - Closed Specialty Diagnoses / Procedures Referred By Mika munguia Referred To Contact [facility] Diagnoses Routine check-up Procedures ECG COMPLETE ECG ROUTINE ECG W/LEAST 12 LDS W/I&R Beto Steele MD [address] [place] [address] [facility] [address] [place] [address] Referral ID Status Reason Start Date Expiration Date V isits Requested Visits Authorized [id number] Closed Auto-Generate d Referral 02/21/2022 02/21/2023 1 1 [facility] for referral (narrative)* Diagnostic Procedure Only (Routine) - Pending Review Specialty Diagnoses / Procedures Referred By Contac t Referred To Contact XR IMAGING Diagnoses Left sided sciatica Procedures XR LUMBAR GENERAL 3V AP/LAT/L5-S1 RADEX SPINE LUMBOSACRAL 2/3 VIEWS Medhat Denny MD [address] [place] [address] Xr Imaging Referral ID Status Reason Start Date Expiration Date Visits Requested Visits Authorized [id number] Pending Review Auto-Generat ed Referral 05/03/2022 06/02/2023 1 1 [facility] for referral (narrative)* Diagnostic Procedure Only (Routine) - Pending Review Specialty Diagnoses / Procedures Referred By Contac t Referred To Contact XR IMAGING Diagnoses Right hip pain Procedures XR HIP GENERAL 3V PELV/AP/LAT RIGHT RADEX HIP UNILATERAL WITH PELVIS 2-3 VIEWS Medhat Denny MD [address] [place] [address] Xr Imaging Referral ID Status Reason Start Date Expiration Date Visits Requested Visits Authorized [id number] Pending Review Auto-Generat ed Referral 11/09/2022 12/09/2023 1 1 [facility] for referral (narrative)* Outpatient Procedure (Routine) - Closed Specialty Diagnoses / Procedures Referred By Contac t Referred To Contact Diagnoses Abdominal pain, unspecified abdominal location Anemia, unspecified type Change in bowel habits Procedures COLONOSCOPY DIAGNOSTIC COLONOSCOPY FLX DX W/COLLJ SPEC WHEN PFRMD Fab Vincent PA-C [address] [place] [address] [facility] [address] [place] [address] Referral ID Status Reason Start Date Expiration Date V isits Requested Visits Authorized [id number] Closed Auto-Generate d Referral 11/02/2022 11/02/2023 1 1 * Outpatient Procedure (Routine) - Closed Specialty Diagnoses / Procedures Referred By Contac t Referred To Contact Diagnoses Abdominal pain, unspecified abdominal location Anemia, unspecified type Change in bowel habits Procedures EGD DIAGNOSTIC ESOPHAGOGASTRODUODENOSCOPY TRANSORAL DIAGNOSTIC Fab Vincent PA-C [address] [place] [address] [facility] [address] [place] [address] Referral ID Status Reason Start Date Expiration Date V isits Requested Visits Authorized [id number] Closed Auto-Generate d Referral 01/04/2023 07/03/2023 1 1 [facility] for referral (narrative)* Diagnostic Procedure Only (Routine) - New Request Specialty Diagnoses / Procedures Referred By Contac t Referred To Contact XR IMAGING Diagnoses Neck pain Procedures XR CERV OTHER 4V AP/LAT/OBL RADEX SPINE CERVICAL 4 OR 5 VIEWS Madison Denny PA-C [address] [place] [address] [place] [address] Referral ID Status Reason Start Date Expiration Date Visits Requested Visits Authorized [id number] New Request Auto-Generat ed Referral 05/27/2024 06/26/2025 1 1 [facility] for referral (narrative)* Diagnostic Procedure Only (Routine) - Closed Specialty Diagnoses / Procedures Referred By Contac t Referred To Contact XR IMAGING Diagnoses Acquired hypothyroidism 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 H/O protein C deficiency H/O protein S deficiency Procedures DXA-AXIAL SKELETON DXA BONE DENSITY STUDY 1/> SITES AXIAL Dwayne Rivera MD [address] [place] [address] [place] [address] Referral ID Status Reason Start Date Expiration Date V isits Requested Visits Authorized [id number] Closed Auto-Generate d Referral 07/16/2024 08/15/2025 1 1 [facility] for visit Narrative* Diagnostic Procedure Only (Routine) - Closed Specialty Diagnoses / Procedures Referred By Contac t Referred To Contact XR IMAGING Diagnoses Neck pain Procedures XR CERV OTHER 4V AP/LAT/OBL RADEX SPINE CERVICAL 4 OR 5 VIEWS Madison Denny PA-C [address] [place] [address] [place] [address] Referral ID Status Reason Start Date Expiration Date V isits Requested Visits Authorized [id number] Closed Auto-Generate d Referral 05/27/2024 06/26/2025 1 1 [facility] for visit Narrative* Diagnostic Procedure Only (Routine) - Closed Specialty Diagnoses / Procedures Referred By Contac t Referred To Contact XR IMAGING Diagnoses Acquired hypothyroidism intermediate systemic steroid user H/O protein C deficiency H/O protein S deficiency Procedures DXA-AXIAL SKELETON DXA BONE DENSITY STUDY 1/> SITES AXIAL Dwayne Rivera MD [address] [place] [address] [place] [address] Referral ID Status Reason Start Date Expiration Date V isits Requested Visits Authorized [id number] Closed Auto-Generate d Referral 07/16/2024 08/15/2025 1 1 [facility] for visit Narrative* Diagnostic Procedure Only (Routine) - Closed Specialty Diagnoses / Procedures Referred By Contac t Referred To Contact RADIO CT SCAN Diagnoses Chronic sinusitis, unspecified CT SINUS WO CONT, J32.9, ORDER IN SCAN DOCS *PLEASE COMPLETE REG WITH PATIENT ON ARRIVAL* Procedures CT MAXILLOFACIAL W/O CONTRAST MATERIAL CT WO COMPLEX SINUS 400 Jenna Ramos, DO [address] [place] [address] Scan [facility] [address] [place] [address] Referral ID Status Reason Start Date Expiration Date Visits Re quested Visits Authorized [id number] Closed 08/01/2024 01/28/2025 1 1 [facility] Summary Purpose Family History No Family History Records Found Relationship Condition Age at Onset Recorded Date/T tiki father Hemorrhagic disorder Unknown Cardiac disease Unknown Relationship Condition Age at Onset Recorded Date/T tiki father Hemorrhagic disorder Unknown Cardiac disease Unknown grandfather Hemorrhagic disorder Unknown Pulmonary embolism Unknown mother Irritable bowel syndrome Unknown brother Irritable bowel syndrome Unknown grandfather Cardiac disease Unknown Advance Directives No Advanced Directives Records FoundDocuments on File Type Date Recorded Patient Linoleum Tile Floor Layer Expl anation Advance Directive(s) 09/23/2021 10:53 AM Documents on File Type Date Recorded Patient Linoleum Tile Floor Layer Expl anation Advance Directive(s) 09/23/2021 10:53 AM Documents on File Type Date Recorded Patient Linoleum Tile Floor Layer Expl anation Advance Directive(s) 02/24/2022 8:51 AM Advance Directive(s) 09/23/2021 10:53 AM Documents on File Type Date Recorded Patient Linoleum Tile Floor Layer Expl anation Advance Directive(s) 02/24/2022 8:51 AM Advance Directive(s) 09/23/2021 10:53 AM Advance Directive Response Recorded Date/ Time Living Will No May 19, 2023 1:01pm Power of Nurse Practitioner Adult No May 19 1:01pm Advance Directive Response Recorded Date/ Time Advance Directives No June 7:27am Living Will No June 28 023 7:27am Power of Nurse Practitioner Adult No June 28, 2023 7:27am Advance Directive Response Recorded Date/ Time Advance Directives No June 7:21am Living Will No July 11, 2023 7:21am Power of Nurse Practitioner Adult No June 7:21am Advance Directive Response Recorded Date/ Time Living Will No July 30 7:32am Power of Nurse Practitioner Adult No July 30 024 7:32am Advance Directives No July 30, 2024 7:32am Health Concerns Infection Onset Date Last Indicated Resolved Time COVID-19 Rule-Out 05/29/2021 05/29/2021 05/31/2021 6:17 AM EDT Medications Administered Section Administered Medications Medication Order MAR Action Action Date Dose Rate Site PPD ([place]) Intradermal Given 04/20/2022 10:50 EDT 0.1 mL Left Low er Forearm Inactive Administered Medications - up to 3 most recent administrations Medication Order MAR Action Action Date Dose Rate Site benzocaine 20% 1 [place] (TOPEX) 1 [place], TOPICAL, DIRECTED, Starting on Mon01/16/23 at 1300, Until Mon01/16/23 at 1659, DOSING DIRECTED BY PHYSICIAN FOR PROCEDURAL SEDATION ONLY - Pharmaceutical Waste: Aerosol -, Intraprocedure Given 01/16/2023 12:22 PM EDT 6 Sprays lactated ringers iv infusion 30 mL/hr, INTRAVENOUS, CONTINUOUS, Starting on Mon01/16/23 at 1100, Until Mon01/16/23 at 1300, Preprocedure Restarted 01/16/2023 12:50 PM EDT Continued by Anesthesia 01/16/2023 12:15 PM EDT 30 mL/hr New Bag/Syringe/Bottle 01/16/2023 11:22 AM EDT 30 mL/hr 30 mL/hr Reason for Referral Specialty Diagnoses / Procedures Referred By Contac t Referred To Contact [facility] Diagnoses Left sided sciatica Procedures CONSULT TO PHYSICAL THERAPY PHYSICAL THERAPY EVALUATION HIGH COMPLEX 45 MINS Medhat Denny MD [address] [place] [address] [facility] [address] [address] Referral ID Status Reason Start Date Expiration Date Visits Requested Visits Authorized [id number] Pending Review Auto-Generat ed Referral 05/05/2022 05/05/2023 1 1 Specialty Diagnoses / Procedures Referred By Contac t Referred To Contact Gastroenterology Diagnoses Abdominal pain, unspecified abdominal location Microcytic anemia Procedures CONSULT TO GASTROENTEROLOGY OFFICE/OUTPATIENT [facility] MDM 60-74 MINUTES Bebeto Soliman APRN.PREPARED [employer] SERVICE TEAM MEMBER [address] [place] [address] Referral ID Status Reason Start Date Expiration Date Visits Requested Visits Authorized [id number] Authorized PCP Requested Referral 2 10/21/2023 1 1 Specialty Diagnoses / Procedures Referred By Contac t Referred To Contact Hematology Diagnoses IgA deficiency (HCC) Procedures CONSULT TO HEMATOLOGY OFFICE/OUTPATIENT [facility] 60-74 MINUTES Medhat Denny MD [address] [place] [address] Referral ID Status Reason Start Date Expiration Date Visits Requested Visits Authorized [id number] Authorized PCP Requested Referral 11/14/2022 02/12/2023 1 1 Specialty Diagnoses / Procedures Referred By Contac t Referred To Contact Gastroenterology Diagnoses Abdominal discomfort Procedures CONSULT TO GASTROENTEROLOGY OFFICE/OUTPATIENT [facility] 60-74 MINUTES Fab Vincent PA-C [address] [place] [address] Referral ID Status Reason Start Date Expiration Date Visits Requested Visits Authorized [id number] Authorized PCP Requested Referral 02/12/2023 02/12/2024 1 1 Specialty Diagnoses / Procedures Referred By Contac t Referred To Contact Medhat Denny MD [address] [place] [address] Referral ID Status Reason Start Date Expiration Date V isits Requested Visits Authorized [id number] Authorized 01/24/2023 02/23/2024 1 1 Specialty Diagnoses / Procedures Referred By Contac t Referred To Contact Ent - Otolaryngology Diagnoses Chronic rhinosinusitis Procedures CONSULT TO ENT OFFICE/OUTPATIENT [facility] 60 MINUTES Levi Carlton PA-C [address] [place] [address] Grover Osorio MD [address] [facility] [address] [place] [address] Referral ID Status Reason Start Date Expiration Date Visits Requested Visits Authorized [id number] Authorized PCP Requested Referral 04/02/2024 07/01/2024 1 1 Specialty Diagnoses / Procedures Referred By Contac t Referred To Contact Neurology Diagnoses Adjustment disorder with mixed anxiety and depressed mood Procedures CONSULT TO NEUROLOGY OFFICE/OUTPATIENT [facility] 60 MINUTES Rosalina Hilton, DATA SCIENCE AND IOT MANAGER.PREPARED [employer]S SERVICE TEAM MEMBER [address] [place] [address] Referral ID Status Reason Start Date Expiration Date Visits Requested Visits Authorized [id number] Authorized PCP Requested Referral 05/07/2024 05/07/2025 1 1 Specialty Diagnoses / Procedures Referred By Contac t Referred To Contact Rosalina Hilton APRN.PRE[employer]ED [employer] SERVICE TEAM MEMBER [address] [place] [address] Referral ID Status Reason Start Date Expiration Date Visits Re quested Visits Authorized [id number] Closed 1 1 Specialty Diagnoses / Procedures Referred By Contac t Referred To Contact Ent - Otolaryngology Diagnoses Myofascial pain syndrome Sinus drainage Procedures CONSULT TO ENT OFFICE/OUTPATIENT [facility] 60 MINUTES Rosalina Hilton APRN.PRE[employer]ED [employer] SERVICE TEAM MEMBER [address] [place] [address] Referral ID Status Reason Start Date Expiration Date Visits Requested Visits Authorized [id number] Authorized PCP Requested Referral 06/05/2024 06/05/2025 1 1 Specialty Diagnoses / Procedures Referred By Contac t Referred To Contact Orthopedics Diagnoses Acute right-sided low back pain with right-sided sciatica Procedures CONSULT TO ORTHOPAEDICS Dwayne Mcdaniel MD [address] [place] [address] Petey Jimenes MD [address] [place] [address] Referral ID Status Reason Start Date Expiration Date Visits Requested Visits Authorized [id number] Ref Not Required PCP Requested Referral 06/14/2024 09/12/2024 3 3 Specialty Diagnoses / Procedures Referred By Contac t Referred To Contact BR IMAGING Diagnoses Encounter for screening mammogram for breast cancer Procedures MOSES SCREENING W RAYMOND SCREENING DIGITAL BREAST TOMOSYNTHESIS BI SCREENING MAMMOGRAPHY BI 2-VIEW BREAST INC CAD Dwayne Mcdaniel MD [address] [place] [address] [facility] [address] [place] [address] Referral ID Status Reason Start Date Expiration Date Visits Requested Visits Authorized [id number] Authorized Auto-Generat ed Referral 06/14/2024 07/14/2025 1 1 Specialty Diagnoses / Procedures Referred By Contac t Referred To Contact Dermatology Diagnoses Malignant melanoma, unspecified site (HCC) Procedures CONSULT TO DERMATOLOGY Dwayne Mcdaniel MD [address] [place] [address] Referral ID Status Reason Start Date Expiration Date Visits Requested Visits Authorized [id number] Ref Not Required PCP Requested Referral 06/14/2024 06/14/2025 1 1 Specialty Diagnoses / Procedures Referred By Contac t Referred To Contact Ent - Otolaryngology Diagnoses Other migraine without status migrainosus, not intractable Headaches Procedures CONSULT TO ENT Dwayne Mcdaniel MD [address] [place] [address] Alcides Quiroga MD [address] [place] [address] Referral ID Status Reason Start Date Expiration Date Visits Requested Visits Authorized [id number] Ref Not Required PCP Requested Referral 06/14/2024 06/14/2025 1 1 Specialty Diagnoses / Procedures Referred By Contac t Referred To Contact Diagnoses H/O protein C deficiency H/O protein S deficiency Procedures CONSULT TO HEMATOLOGY/ONCOLOGY OFFICE/OUTPATIENT [facility] 60 MINUTES Dwayne Mcdaniel MD [address] [place] [address] Referral ID Status Reason Start Date Expiration Date Visits Requested Visits Authorized [id number] Authorized PCP Requested Referral 07/16/2024 07/16/2025 1 1 Specialty Diagnoses / Procedures Referred By Contac t Referred To Contact XR IMAGING Diagnoses Acquired hypothyroidism 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 H/O protein C deficiency H/O protein S deficiency Procedures DXA-AXIAL SKELETON DXA BONE DENSITY STUDY 1/> SITES AXIAL SKDwayne Acuna MD [address] [place] [address] [place] [address] Referral ID Status Reason Start Date Expiration Date Visits Requested Visits Authorized [id number] Authorized Auto-Generat ed Referral 07/16/2024 08/15/2025 1 1 Specialty Diagnoses / Procedures Referred By Contac t Referred To Contact Rheumatology Diagnoses Hair thinning Brittle nails Hair loss Procedures CONSULT TO RHEUM/IMMUN DISEASE Dwayne Mcdaniel MD [address] [place] [address] Sukhjinder Fontenot [address] [place] [address] Referral ID Status Reason Start Date Expiration Date Visits Requested Visits Authorized [id number] Ref Not Required PCP Requested Referral 07/16/2024 10/14/2024 3 3 Specialty Diagnoses / Procedures Referred By Contac t Referred To Contact Diagnoses Chronic migraine without aura without status migrainosus, [place] [id number] [address]/[facility] [place] [address] Referral ID Status Reason Start Date Expiration Date V isits Requested Visits Authorized [id number] Authorized 07/21/2024 08/20/2025 1 1 Chief Complaint and Reason for Visit Chief Complaint DVT F/U HX VENOUS THROMBOSIS/EMBOLISM Reason for Visit History of DVT (deep vein thrombosis) Chief Complaint DVT F/U HX VENOUS THROMBOSIS/EMBOLISM DVT Deep vein thrombosis Reason for Visit History of DVT (deep vein thrombosis) History of DVT (deep vein thrombosis) Chief Complaint DVT F/U HX VENOUS THROMBOSIS/EMBOLISM DVT Deep vein thrombosis SUTURE REMOVAL E-ORDER SURGICAL SITE CHECK Compression of vein 4 W POST-OP Reason for Visit History of DVT (deep vein thrombosis) History of DVT (deep vein thrombosis) History of DVT (deep vein thrombosis) Stenosis of iliac vein History of DVT (deep vein thrombosis) 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 Chief Complaint Admit Date EST NEW PT - VASC DOC October 07 7:52am THROMBOPHILIA November 05, 2024 1 2:44pm 6 wk FU November 26, 2024 7 :56am 4WKS NO LABS December 23, 2024 1:10 pm screening for breast cancer December 25, 2 025 7:45am Reason for Visit Admit Date Anxiety October 07, 2024 7:52am GERD (gastroesophageal reflux disease) D ecember 2023 7:52am Hypothyroidism October 07, 2024 7:52am Chronic back pain October 07, 2024 7:52am History of DVT (deep vein thrombosis) De cember 2023 7:52am Establishing care with [facility] for October 07, 2024 7:52am Sinus pain October 07, 2024 7:52am Chronic daily headache October 07 7:52am History of melanoma October 07, 2024 7:52am Hypogammaglobulinemia November 05, 2024 12:44pm Thrombophilia November 05, 2024 1 2:44pm Anxiety November 26, 2024 7 :56am GERD (gastroesophageal reflux disease) F ebruary 2024 7:56am Hypothyroidism November 26, 2024 7 :56am Chronic back pain November 26, 2024 7 :56am History of DVT (deep vein thrombosis) Fe bruary 2024 7:56am Change in bowel habits November 26 7:56am Sinus pain November 26, 2024 7 :56am Chronic daily headache November 26 7:56am History of melanoma November 26, 2024 7 :56am Screening for breast cancer November 7:56am Hypogammaglobulinemia December 23, 2024 1: 10pm Thrombophilia December 23, 2024 1:10 pm Additional Source Comments INFORMATION SOURCE (unrecogn ized section and content) DATE CREATED AUTHOR 06/01/2021 [facility] DATE CREATED AUTHOR AUTHOR'S ORGANIZ ATION 11/16/2021 [facility] DATE CREATED AUTHOR AUTHOR'S ORGANIZ ATION 04/09/2022 [facility] Ioana campos [place] DATE CREATED AUTHOR AUTHOR'S ORGANIZ ATION 11/15/2022 [facility] DATE CREATED AUTHOR AUTHOR'S ORGANIZ ATION 05/06/2023 [facility] DATE CREATED AUTHOR AUTHOR'S ORGANIZ ATION 06/23/2023 [facility] DATE CREATED AUTHOR AUTHOR'S ORGANIZ ATION 06/23/2023 [facility] DATE CREATED AUTHOR AUTHOR'S ORGANIZ ATION 09/24/2023 [facility] DATE CREATED AUTHOR AUTHOR'S ORGANIZ ATION 05/23/2024 [facility] ([place] DATE CREATED AUTHOR AUTHOR'S ORGANIZ ATION 11/04/2024 [facility] DATE CREATED AUTHOR AUTHOR'S ORGANIZ ATION 01/26/2025 [facility] DATE CREATED AUTHOR AUTHOR'S ORGANIZ ATION 02/10/2025 [facility] DATE CREATED AUTHOR AUTHOR'S ORGANIZ ATION 05/23/2025 [facility] nter Source Comments (unrecognize d section and content) In the event this informatio n is protected by the Federal Confidentiality of Alcohol and Drug Abuse Patient Records regulations: The Federal rules restrict any use of the information to criminally investigate or prosecute any alcohol or drug abuse patient.[facility] the event this information is protected by the Federal Confidentiality of Alcohol and Drug Abuse Patient Records regulations: The Federal rules restrict any use of the information to criminally investigate or prosecute any alcohol or drug abuse patient.[facility]In the event this information is protected by the Federal Confidentiality of Alcohol and Drug Abuse Patient Records regulations: The Federal rules restrict any use of the information to criminally investigate or prosecute any alcohol or drug abuse patient.[facility]In the event this information is protected by the Federal Confidentiality of Alcohol and Drug Abuse Patient Records regulations: The Federal rules restrict any use of the information to criminally investigate or prosecute any alcohol or drug abuse patient.[facility]In the event this information is protected by the Federal Confidentiality of Alcohol and Drug Abuse Patient Records regulations: The Federal rules restrict any use of the information to criminally investigate or prosecute any alcohol or drug abuse patient.[facility]In the event this information is protected by the Federal Confidentiality of Alcohol and Drug Abuse Patient Records regulations: The Federal rules restrict any use of the information to criminally investigate or prosecute any alcohol or drug abuse patient.[facility] SouthIn the event this information is protected by the Federal Confidentiality of Alcohol and Drug Abuse Patient Records regulations: The Federal rules restrict any use of the information to criminally investigate or prosecute any alcohol or drug abuse patient.[facility]In the event this information is protected by the Federal Confidentiality of Alcohol and Drug Abuse Patient Records regulations: The Federal rules restrict any use of the information to criminally investigate or prosecute any alcohol or drug abuse patient.[facility]In the event this information is protected by the Federal Confidentiality of Alcohol and Drug Abuse Patient Records regulations: The Federal rules restrict any use of the information to criminally investigate or prosecute any alcohol or drug abuse patient.[facility] SouthIn the event this information is protected by the Federal Confidentiality of Alcohol and Drug Abuse Patient Records regulations: The Federal rules restrict any use of the information to criminally investigate or prosecute any alcohol or drug abuse patient.[facility] SouthIn the event this information is protected by the Federal Confidentiality of Alcohol and Drug Abuse Patient Records regulations: The Federal rules restrict any use of the information to criminally investigate or prosecute any alcohol or drug abuse patient.[facility] SouthIn the event this information is protected by the Federal Confidentiality of Alcohol and Drug Abuse Patient Records regulations: The Federal rules restrict any use of the information to criminally investigate or prosecute any alcohol or drug abuse patient.[facility]In the event this information is protected by the Federal Confidentiality of Alcohol and Drug Abuse Patient Records regulations: The Federal rules restrict any use of the information to criminally investigate or prosecute any alcohol or drug abuse patient.[facility]In the event this information is protected by the Federal Confidentiality of Alcohol and Drug Abuse Patient Records regulations: The Federal rules restrict any use of the information to criminally investigate or prosecute any alcohol or drug abuse patient.[facility] SouthIn the event this information is protected by the Federal Confidentiality of Alcohol and Drug Abuse Patient Records regulations: The Federal rules restrict any use of the information to criminally investigate or prosecute any alcohol or drug abuse patient.[facility]In the event this information is protected by the Federal Confidentiality of Alcohol and Drug Abuse Patient Records regulations: The Federal rules restrict any use of the information to criminally investigate or prosecute any alcohol or drug abuse patient.[facility] SouthIn the event this information is protected by the Federal Confidentiality of Alcohol and Drug Abuse Patient Records regulations: The Federal rules restrict any use of the information to criminally investigate or prosecute any alcohol or drug abuse patient.[facility] SouthIn the event this information is protected by the Federal Confidentiality of Alcohol and Drug Abuse Patient Records regulations: The Federal rules restrict any use of the information to criminally investigate or prosecute any alcohol or drug abuse patient.[facility] SouthIn the event this information is protected by the Federal Confidentiality of Alcohol and Drug Abuse Patient Records regulations: The Federal rules restrict any use of the information to criminally investigate or prosecute any alcohol or drug abuse patient.[facility] SouthIn the event this information is protected by the Federal Confidentiality of Alcohol and Drug Abuse Patient Records regulations: The Federal rules restrict any use of the information to criminally investigate or prosecute any alcohol or drug abuse patient.[facility]In the event this information is protected by the Federal Confidentiality of Alcohol and Drug Abuse Patient Records regulations: The Federal rules restrict any use of the information to criminally investigate or prosecute any alcohol or drug abuse patient.[facility]In the event this information is protected by the Federal Confidentiality of Alcohol and Drug Abuse Patient Records regulations: The Federal rules restrict any use of the information to criminally investigate or prosecute any alcohol or drug abuse patient.[facility]In the event this information is protected by the Federal Confidentiality of Alcohol and Drug Abuse Patient Records regulations: The Federal rules restrict any use of the information to criminally investigate or prosecute any alcohol or drug abuse patient.[facility]In the event this information is protected by the Federal Confidentiality of Alcohol and Drug Abuse Patient Records regulations: The Federal rules restrict any use of the information to criminally investigate or prosecute any alcohol or drug abuse patient.[facility]In the event this information is protected by the Federal Confidentiality of Alcohol and Drug Abuse Patient Records regulations: The Federal rules restrict any use of the information to criminally investigate or prosecute any alcohol or drug abuse patient.[facility]In the event this information is protected by the Federal Confidentiality of Alcohol and Drug Abuse Patient Records regulations: The Federal rules restrict any use of the information to criminally investigate or prosecute any alcohol or drug abuse patient.[facility]In the event this information is protected by the Federal Confidentiality of Alcohol and Drug Abuse Patient Records regulations: The Federal rules restrict any use of the information to criminally investigate or prosecute any alcohol or drug abuse patient.[facility]In the event this information is protected by the Federal Confidentiality of Alcohol and Drug Abuse Patient Records regulations: The Federal rules restrict any use of the information to criminally investigate or prosecute any alcohol or drug abuse patient.[facility] SouthIn the event this information is protected by the Federal Confidentiality of Alcohol and Drug Abuse Patient Records regulations: The Federal rules restrict any use of the information to criminally investigate or prosecute any alcohol or drug abuse patient.[facility]In the event this information is protected by the Federal Confidentiality of Alcohol and Drug Abuse Patient Records regulations: The Federal rules restrict any use of the information to criminally investigate or prosecute any alcohol or drug abuse patient.[facility] SouthIn the event this information is protected by the Federal Confidentiality of Alcohol and Drug Abuse Patient Records regulations: The Federal rules restrict any use of the information to criminally investigate or prosecute any alcohol or drug abuse patient.[facility] SouthIn the event this information is protected by the Federal Confidentiality of Alcohol and Drug Abuse Patient Records regulations: The Federal rules restrict any use of the information to criminally investigate or prosecute any alcohol or drug abuse patient.[facility]In the event this information is protected by the Federal Confidentiality of Alcohol and Drug Abuse Patient Records regulations: The Federal rules restrict any use of the information to criminally investigate or prosecute any alcohol or drug abuse patient.[facility]In the event this information is protected by the Federal Confidentiality of Alcohol and Drug Abuse Patient Records regulations: The Federal rules restrict any use of the information to criminally investigate or prosecute any alcohol or drug abuse patient.[facility]In the event this information is protected by the Federal Confidentiality of Alcohol and Drug Abuse Patient Records regulations: The Federal rules restrict any use of the information to criminally investigate or prosecute any alcohol or drug abuse patient.[facility] SouthIn the event this information is protected by the Federal Confidentiality of Alcohol and Drug Abuse Patient Records regulations: The Federal rules restrict any use of the information to criminally investigate or prosecute any alcohol or drug abuse patient.[facility]In the event this information is protected by the Federal Confidentiality of Alcohol and Drug Abuse Patient Records regulations: The Federal rules restrict any use of the information to criminally investigate or prosecute any alcohol or drug abuse patient.[facility] SouthIn the event this information is protected by the Federal Confidentiality of Alcohol and Drug Abuse Patient Records regulations: The Federal rules restrict any use of the information to criminally investigate or prosecute any alcohol or drug abuse patient.[facility]In the event this information is protected by the Federal Confidentiality of Alcohol and Drug Abuse Patient Records regulations: The Federal rules restrict any use of the information to criminally investigate or prosecute any alcohol or drug abuse patient.[facility]In the event this information is protected by the Federal Confidentiality of Alcohol and Drug Abuse Patient Records regulations: The Federal rules restrict any use of the information to criminally investigate or prosecute any alcohol or drug abuse patient.[facility] SouthIn the event this information is protected by the Federal Confidentiality of Alcohol and Drug Abuse Patient Records regulations: The Federal rules restrict any use of the information to criminally investigate or prosecute any alcohol or drug abuse patient.[facility] SouthIn the event this information is protected by the Federal Confidentiality of Alcohol and Drug Abuse Patient Records regulations: The Federal rules restrict any use of the information to criminally investigate or prosecute any alcohol or drug abuse patient.[facility] SouthIn the event this information is protected by the Federal Confidentiality of Alcohol and Drug Abuse Patient Records regulations: The Federal rules restrict any use of the information to criminally investigate or prosecute any alcohol or drug abuse patient.[facility]In the event this information is protected by the Federal Confidentiality of Alcohol and Drug Abuse Patient Records regulations: The Federal rules restrict any use of the information to criminally investigate or prosecute any alcohol or drug abuse patient.[facility] SouthIn the event this information is protected by the Federal Confidentiality of Alcohol and Drug Abuse Patient Records regulations: The Federal rules restrict any use of the information to criminally investigate or prosecute any alcohol or drug abuse patient.[facility] SouthIn the event this information is protected by the Federal Confidentiality of Alcohol and Drug Abuse Patient Records regulations: The Federal rules restrict any use of the information to criminally investigate or prosecute any alcohol or drug abuse patient.[facility] SouthIn the event this information is protected by the Federal Confidentiality of Alcohol and Drug Abuse Patient Records regulations: The Federal rules restrict any use of the information to criminally investigate or prosecute any alcohol or drug abuse patient.[facility] SouthIn the event this information is protected by the Federal Confidentiality of Alcohol and Drug Abuse Patient Records regulations: The Federal rules restrict any use of the information to criminally investigate or prosecute any alcohol or drug abuse patient.[facility] SouthIn the event this information is protected by the Federal Confidentiality of Alcohol and Drug Abuse Patient Records regulations: The Federal rules restrict any use of the information to criminally investigate or prosecute any alcohol or drug abuse patient.[facility] SouthIn the event this information is protected by the Federal Confidentiality of Alcohol and Drug Abuse Patient Records regulations: The Federal rules restrict any use of the information to criminally investigate or prosecute any alcohol or drug abuse patient.[facility] SouthIn the event this information is protected by the Federal Confidentiality of Alcohol and Drug Abuse Patient Records regulations: The Federal rules restrict any use of the information to criminally investigate or prosecute any alcohol or drug abuse patient.[facility] SouthIn the event this information is protected by the Federal Confidentiality of Alcohol and Drug Abuse Patient Records regulations: The Federal rules restrict any use of the information to criminally investigate or prosecute any alcohol or drug abuse patient.[facility] SouthIn the event this information is protected by the Federal Confidentiality of Alcohol and Drug Abuse Patient Records regulations: The Federal rules restrict any use of the information to criminally investigate or prosecute any alcohol or drug abuse patient.[facility] SouthIn the event this information is protected by the Federal Confidentiality of Alcohol and Drug Abuse Patient Records regulations: The Federal rules restrict any use of the information to criminally investigate or prosecute any alcohol or drug abuse patient.[facility]In the event this information is protected by the Federal Confidentiality of Alcohol and Drug Abuse Patient Records regulations: The Federal rules restrict any use of the information to criminally investigate or prosecute any alcohol or drug abuse patient.[facility]In the event this information is protected by the Federal Confidentiality of Alcohol and Drug Abuse Patient Records regulations: The Federal rules restrict any use of the information to criminally investigate or prosecute any alcohol or drug abuse patient.[facility]In the event this information is protected by the Federal Confidentiality of Alcohol and Drug Abuse Patient Records regulations: The Federal rules restrict any use of the information to criminally investigate or prosecute any alcohol or drug abuse patient.[facility]In the event this information is protected by the Federal Confidentiality of Alcohol and Drug Abuse Patient Records regulations: The Federal rules restrict any use of the information to criminally investigate or prosecute any alcohol or drug abuse patient.[facility] SouthIn the event this information is protected by the Federal Confidentiality of Alcohol and Drug Abuse Patient Records regulations: The Federal rules restrict any use of the information to criminally investigate or prosecute any alcohol or drug abuse patient.[facility] SouthIn the event this information is protected by the Federal Confidentiality of Alcohol and Drug Abuse Patient Records regulations: The Federal rules restrict any use of the information to criminally investigate or prosecute any alcohol or drug abuse patient.[facility] SouthIn the event this information is protected by the Federal Confidentiality of Alcohol and Drug Abuse Patient Records regulations: The Federal rules restrict any use of the information to criminally investigate or prosecute any alcohol or drug abuse patient.[facility] SouthIn the event this information is protected by the Federal Confidentiality of Alcohol and Drug Abuse Patient Records regulations: The Federal rules restrict any use of the information to criminally investigate or prosecute any alcohol or drug abuse patient.[facility] SouthIn the event this information is protected by the Federal Confidentiality of Alcohol and Drug Abuse Patient Records regulations: The Federal rules restrict any use of the information to criminally investigate or prosecute any alcohol or drug abuse patient.[facility] SouthIn the event this information is protected by the Federal Confidentiality of Alcohol and Drug Abuse Patient Records regulations: The Federal rules restrict any use of the information to criminally investigate or prosecute any alcohol or drug abuse patient.[facility] SouthIn the event this information is protected by the Federal Confidentiality of Alcohol and Drug Abuse Patient Records regulations: The Federal rules restrict any use of the information to criminally investigate or prosecute any alcohol or drug abuse patient.[facility] SouthIn the event this information is protected by the Federal Confidentiality of Alcohol and Drug Abuse Patient Records regulations: The Federal rules restrict any use of the information to criminally investigate or prosecute any alcohol or drug abuse patient.[facility] SouthIn the event this information is protected by the Federal Confidentiality of Alcohol and Drug Abuse Patient Records regulations: The Federal rules restrict any use of the information to criminally investigate or prosecute any alcohol or drug abuse patient.[facility] SouthIn the event this information is protected by the Federal Confidentiality of Alcohol and Drug Abuse Patient Records regulations: The Federal rules restrict any use of the information to criminally investigate or prosecute any alcohol or drug abuse patient.[facility]In the event this information is protected by the Federal Confidentiality of Alcohol and Drug Abuse Patient Records regulations: The Federal rules restrict any use of the information to criminally investigate or prosecute any alcohol or drug abuse patient.[facility] SouthIn the event this information is protected by the Federal Confidentiality of Alcohol and Drug Abuse Patient Records regulations: The Federal rules restrict any use of the information to criminally investigate or prosecute any alcohol or drug abuse patient.[facility] SouthIn the event this information is protected by the Federal Confidentiality of Alcohol and Drug Abuse Patient Records regulations: The Federal rules restrict any use of the information to criminally investigate or prosecute any alcohol or drug abuse patient.[facility] SouthIn the event this information is protected by the Federal Confidentiality of Alcohol and Drug Abuse Patient Records regulations: The Federal rules restrict any use of the information to criminally investigate or prosecute any alcohol or drug abuse patient.[facility] SouthIn the event this information is protected by the Federal Confidentiality of Alcohol and Drug Abuse Patient Records regulations: The Federal rules restrict any use of the information to criminally investigate or prosecute any alcohol or drug abuse patient.[facility] SouthIn the event this information is protected by the Federal Confidentiality of Alcohol and Drug Abuse Patient Records regulations: The Federal rules restrict any use of the information to criminally investigate or prosecute any alcohol or drug abuse patient.[facility] SouthIn the event this information is protected by the Federal Confidentiality of Alcohol and Drug Abuse Patient Records regulations: The Federal rules restrict any use of the information to criminally investigate or prosecute any alcohol or drug abuse patient.[facility] SouthIn the event this information is protected by the Federal Confidentiality of Alcohol and Drug Abuse Patient Records regulations: The Federal rules restrict any use of the information to criminally investigate or prosecute any alcohol or drug abuse patient.[facility] SouthIn the event this information is protected by the Federal Confidentiality of Alcohol and Drug Abuse Patient Records regulations: The Federal rules restrict any use of the information to criminally investigate or prosecute any alcohol or drug abuse patient.[facility] SouthIn the event this information is protected by the Federal Confidentiality of Alcohol and Drug Abuse Patient Records regulations: The Federal rules restrict any use of the information to criminally investigate or prosecute any alcohol or drug abuse patient.[facility] SouthIn the event this information is protected by the Federal Confidentiality of Alcohol and Drug Abuse Patient Records regulations: The Federal rules restrict any use of the information to criminally investigate or prosecute any alcohol or drug abuse patient.[facility] SouthIn the event this information is protected by the Federal Confidentiality of Alcohol and Drug Abuse Patient Records regulations: The Federal rules restrict any use of the information to criminally investigate or prosecute any alcohol or drug abuse patient.[facility] SouthIn the event this information is protected by the Federal Confidentiality of Alcohol and Drug Abuse Patient Records regulations: The Federal rules restrict any use of the information to criminally investigate or prosecute any alcohol or drug abuse patient.[facility] SouthIn the event this information is protected by the Federal Confidentiality of Alcohol and Drug Abuse Patient Records regulations: The Federal rules restrict any use of the information to criminally investigate or prosecute any alcohol or drug abuse patient.[facility] SouthIn the event this information is protected by the Federal Confidentiality of Alcohol and Drug Abuse Patient Records regulations: The Federal rules restrict any use of the information to criminally investigate or prosecute any alcohol or drug abuse patient.[facility] SouthIn the event this information is protected by the Federal Confidentiality of Alcohol and Drug Abuse Patient Records regulations: The Federal rules restrict any use of the information to criminally investigate or prosecute any alcohol or drug abuse patient.[facility] SouthIn the event this information is protected by the Federal Confidentiality of Alcohol and Drug Abuse Patient Records regulations: The Federal rules restrict any use of the information to criminally investigate or prosecute any alcohol or drug abuse patient.[facility] SouthIn the event this information is protected by the Federal Confidentiality of Alcohol and Drug Abuse Patient Records regulations: The Federal rules restrict any use of the information to criminally investigate or prosecute any alcohol or drug abuse patient.[facility] SouthIn the event this information is protected by the Federal Confidentiality of Alcohol and Drug Abuse Patient Records regulations: The Federal rules restrict any use of the information to criminally investigate or prosecute any alcohol or drug abuse patient.[facility] SouthIn the event this information is protected by the Federal Confidentiality of Alcohol and Drug Abuse Patient Records regulations: The Federal rules restrict any use of the information to criminally investigate or prosecute any alcohol or drug abuse patient.[facility] SouthIn the event this information is protected by the Federal Confidentiality of Alcohol and Drug Abuse Patient Records regulations: The Federal rules restrict any use of the information to criminally investigate or prosecute any alcohol or drug abuse patient.[facility] SouthIn the event this information is protected by the Federal Confidentiality of Alcohol and Drug Abuse Patient Records regulations: The Federal rules restrict any use of the information to criminally investigate or prosecute any alcohol or drug abuse patient.[facility] SouthIn the event this information is protected by the Federal Confidentiality of Alcohol and Drug Abuse Patient Records regulations: The Federal rules restrict any use of the information to criminally investigate or prosecute any alcohol or drug abuse patient.[facility]In the event this information is protected by the Federal Confidentiality of Alcohol and Drug Abuse Patient Records regulations: The Federal rules restrict any use of the information to criminally investigate or prosecute any alcohol or drug abuse patient.[facility] SouthIn the event this information is protected by the Federal Confidentiality of Alcohol and Drug Abuse Patient Records regulations: The Federal rules restrict any use of the information to criminally investigate or prosecute any alcohol or drug abuse patient.[facility] SouthIn the event this information is protected by the Federal Confidentiality of Alcohol and Drug Abuse Patient Records regulations: The Federal rules restrict any use of the information to criminally investigate or prosecute any alcohol or drug abuse patient.[facility] SouthIn the event this information is protected by the Federal Confidentiality of Alcohol and Drug Abuse Patient Records regulations: The Federal rules restrict any use of the information to criminally investigate or prosecute any alcohol or drug abuse patient.[facility] SouthIn the event this information is protected by the Federal Confidentiality of Alcohol and Drug Abuse Patient Records regulations: The Federal rules restrict any use of the information to criminally investigate or prosecute any alcohol or drug abuse patient.[facility] SouthIn the event this information is protected by the Federal Confidentiality of Alcohol and Drug Abuse Patient Records regulations: The Federal rules restrict any use of the information to criminally investigate or prosecute any alcohol or drug abuse patient.[facility] SouthIn the event this information is protected by the Federal Confidentiality of Alcohol and Drug Abuse Patient Records regulations: The Federal rules restrict any use of the information to criminally investigate or prosecute any alcohol or drug abuse patient.[facility]In the event this information is protected by the Federal Confidentiality of Alcohol and Drug Abuse Patient Records regulations: The Federal rules restrict any use of the information to criminally investigate or prosecute any alcohol or drug abuse patient.[facility]In the event this information is protected by the Federal Confidentiality of Alcohol and Drug Abuse Patient Records regulations: The Federal rules restrict any use of the information to criminally investigate or prosecute any alcohol or drug abuse patient.[facility]In the event this information is protected by the Federal Confidentiality of Alcohol and Drug Abuse Patient Records regulations: The Federal rules restrict any use of the information to criminally investigate or prosecute any alcohol or drug abuse patient.[facility]In the event this information is protected by the Federal Confidentiality of Alcohol and Drug Abuse Patient Records regulations: The Federal rules restrict any use of the information to criminally investigate or prosecute any alcohol or drug abuse patient.[facility]In the event this information is protected by the Federal Confidentiality of Alcohol and Drug Abuse Patient Records regulations: The Federal rules restrict any use of the information to criminally investigate or prosecute any alcohol or drug abuse patient.[facility]In the event this information is protected by the Federal Confidentiality of Alcohol and Drug Abuse Patient Records regulations: The Federal rules restrict any use of the information to criminally investigate or prosecute any alcohol or drug abuse patient.[facility]In the event this information is protected by the Federal Confidentiality of Alcohol and Drug Abuse Patient Records regulations: The Federal rules restrict any use of the information to criminally investigate or prosecute any alcohol or drug abuse patient.[facility]In the event this information is protected by the Federal Confidentiality of Alcohol and Drug Abuse Patient Records regulations: The Federal rules restrict any use of the information to criminally investigate or prosecute any alcohol or drug abuse patient.[facility]In the event this information is protected by the Federal Confidentiality of Alcohol and Drug Abuse Patient Records regulations: The Federal rules restrict any use of the information to criminally investigate or prosecute any alcohol or drug abuse patient.[facility] SouthIn the event this information is protected by the Federal Confidentiality of Alcohol and Drug Abuse Patient Records regulations: The Federal rules restrict any use of the information to criminally investigate or prosecute any alcohol or drug abuse patient.[facility]In the event this information is protected by the Federal Confidentiality of Alcohol and Drug Abuse Patient Records regulations: The Federal rules restrict any use of the information to criminally investigate or prosecute any alcohol or drug abuse patient.[facility]In the event this information is protected by the Federal Confidentiality of Alcohol and Drug Abuse Patient Records regulations: The Federal rules restrict any use of the information to criminally investigate or prosecute any alcohol or drug abuse patient.[facility]In the event this information is protected by the Federal Confidentiality of Alcohol and Drug Abuse Patient Records regulations: The Federal rules restrict any use of the information to criminally investigate or prosecute any alcohol or drug abuse patient.[facility]In the event this information is protected by the Federal Confidentiality of Alcohol and Drug Abuse Patient Records regulations: The Federal rules restrict any use of the information to criminally investigate or prosecute any alcohol or drug abuse patient.[facility]In the event this information is protected by the Federal Confidentiality of Alcohol and Drug Abuse Patient Records regulations: The Federal rules restrict any use of the information to criminally investigate or prosecute any alcohol or drug abuse patient.[facility]In the event this information is protected by the Federal Confidentiality of Alcohol and Drug Abuse Patient Records regulations: The Federal rules restrict any use of the information to criminally investigate or prosecute any alcohol or drug abuse patient.[facility] SouthIn the event this information is protected by the Federal Confidentiality of Alcohol and Drug Abuse Patient Records regulations: The Federal rules restrict any use of the information to criminally investigate or prosecute any alcohol or drug abuse patient.[facility] SouthIn the event this information is protected by the Federal Confidentiality of Alcohol and Drug Abuse Patient Records regulations: The Federal rules restrict any use of the information to criminally investigate or prosecute any alcohol or drug abuse patient.[facility]In the event this information is protected by the Federal Confidentiality of Alcohol and Drug Abuse Patient Records regulations: The Federal rules restrict any use of the information to criminally investigate or prosecute any alcohol or drug abuse patient.[facility]In the event this information is protected by the Federal Confidentiality of Alcohol and Drug Abuse Patient Records regulations: The Federal rules restrict any use of the information to criminally investigate or prosecute any alcohol or drug abuse patient.[facility]In the event this information is protected by the Federal Confidentiality of Alcohol and Drug Abuse Patient Records regulations: The Federal rules restrict any use of the information to criminally investigate or prosecute any alcohol or drug abuse patient.[facility]In the event this information is protected by the Federal Confidentiality of Alcohol and Drug Abuse Patient Records regulations: The Federal rules restrict any use of the information to criminally investigate or prosecute any alcohol or drug abuse patient.[facility]In the event this information is protected by the Federal Confidentiality of Alcohol and Drug Abuse Patient Records regulations: The Federal rules restrict any use of the information to criminally investigate or prosecute any alcohol or drug abuse patient.[facility]In the event this information is protected by the Federal Confidentiality of Alcohol and Drug Abuse Patient Records regulations: The Federal rules restrict any use of the information to criminally investigate or prosecute any alcohol or drug abuse patient.[facility]In the event this information is protected by the Federal Confidentiality of Alcohol and Drug Abuse Patient Records regulations: The Federal rules restrict any use of the information to criminally investigate or prosecute any alcohol or drug abuse patient.[facility]In the event this information is protected by the Federal Confidentiality of Alcohol and Drug Abuse Patient Records regulations: The Federal rules restrict any use of the information to criminally investigate or prosecute any alcohol or drug abuse patient.[facility]In the event this information is protected by the Federal Confidentiality of Alcohol and Drug Abuse Patient Records regulations: The Federal rules restrict any use of the information to criminally investigate or prosecute any alcohol or drug abuse patient.[facility]In the event this information is protected by the Federal Confidentiality of Alcohol and Drug Abuse Patient Records regulations: The Federal rules restrict any use of the information to criminally investigate or prosecute any alcohol or drug abuse patient.[facility]In the event this information is protected by the Federal Confidentiality of Alcohol and Drug Abuse Patient Records regulations: The Federal rules restrict any use of the information to criminally investigate or prosecute any alcohol or drug abuse patient.[facility]In the event this information is protected by the Federal Confidentiality of Alcohol and Drug Abuse Patient Records regulations: The Federal rules restrict any use of the information to criminally investigate or prosecute any alcohol or drug abuse patient.[facility] Care Teams (unrecognized sec tion and content) Supervisor Shearing Relationship Specialty Start Date End Date Medhat Denny MD [address] [place], [place] [id number] PCP - General Family Practice 03/16/21 Madison Spicer DO [address] [place] [address] [id number] [facility] 04/01/21 Alex Perez MD [address] [place] [address] [address] [place], [place] [id number] Referring VOCATIONAL EXAMINER 05/20/21 Supervisor Shearing Relationship Specialty Start Date End Date Medhat Denny MD [address] [place], [place] [id number] PCP - General Family Practice 03/16/21 Madison Spicer DO [address] [place] [address] [id number] [facility] 04/01/21 Alex Perez MD [address] [place] [address] [place] [address] Referring VOCATIONAL EXAMINER 05/20/21 Supervisor Shearing Relationship Specialty Start Date End Date Medhat Denny MD [address] [place] [address] PCP - General Family Practice 03/16/21 Madison Spicer DO [address] [address] [facility] 04/01/21 Alex Perez MD [address] [place] [address] [address] [place] [address] Referring VOCATIONAL EXAMINER 05/20/21 Supervisor Shearing Relationship Specialty Start Date End Date Medhat Denny MD [address] [place] [address] PCP - General Family Practice 03/16/21 Madison Spicer DO [address] [address] [facility] 04/01/21 Alex Perez MD [address] [place] [address] [address] [place] [address] Referring VOCATIONAL EXAMINER 05/20/21 Supervisor Shearing Relationship Specialty Start Date End Date Medhat Denny MD [address] [place] [address] PCP - General Family Practice 03/16/21 Madison Spicer DO [address] [address] [facility] 04/01/21 Alex Perez MD [address] [place] [address] Referring VOCATIONAL EXAMINER 05/20/21 Supervisor Shearing Relationship Specialty Start Date End Date Medhat Denny MD [address] [place], [place] [id number] PCP - General [facility] Practice 03/16/21 Madison Spicer DO [address] [address] [facility] 04/01/21 Alex Perez MD [address] [facility] [address] [facility] [place] [address] Referring VOCATIONAL EXAMINER 05/20/21 Supervisor Shearing Relationship Specialty Start Date End Date Medhat Denny MD [address] [place] [address] PCP - [facility] Practice 03/16/21 [place] [address] [address] [facility] 04/01/21 Alex Perez MD [address] [facility] [place] [address] Referring VOCATIONAL EXAMINER 05/20/21 Supervisor Shearing Relationship Specialty Start Date End Date Medhat Denny MD [address] [place] [address] PCP - General [facility] Practice 03/16/21 Madison Spicer DO [address] [address] [facility] 04/01/21 Alex Perez MD [address] [facility] [place] [address] Referring VOCATIONAL EXAMINER 05/20/21 Supervisor Shearing Relationship Specialty Start Date End Date Medhat Denny MD [address] [place] [address] PCP - General Family Practice 03/16/21 Madison Spiecr DO [address] [address] [facility] 04/01/21 Alex Perez MD [address] [facility] [address] [place] [address] Referring VOCATIONAL EXAMINER 05/20/21 Supervisor Shearing Relationship Specialty Start Date End Date Nathan Gamez [place] PCP - General Family Practice 06/18/14 03/15/21 Medhat Denny MD [address] [place] [address] PCP - General Family Practice 03/16/21 [place] [address] [place] [address] [facility] 04/01/21 Alex Perez MD [address] [place] [address] [address] [place] [address] Referring VOCATIONAL EXAMINER 05/20/21 Supervisor Shearing Relationship Specialty Start Date End Date Medhat Denny MD [address] [place] [address] PCP - General Family Practice 03/16/21 Madison Spicer DO [address] [address] [facility] 04/01/21 Alex Perez MD [facility] [address] [place] [address] Referring VOCATIONAL EXAMINER 05/20/21 Supervisor Shearing Relationship Specialty Start Date End Date Medhat Denny MD [address] [place] [address] PCP - General Family Practice 03/16/21 Madison Spicer DO [address] [address] [facility] 04/01/21 Alex Perez MD [address] [place] [address] [address] [place] [address] Referring VOCATIONAL EXAMINER 05/20/21 Supervisor Shearing Relationship Specialty Start Date End Date Medhat Denny MD [address] [place] [address] PCP - General Family Practice 03/16/21 Madison Spicer DO [address] [address] [facility] 04/01/21 Alex Perez MD [address] [place] [address] [address] [place] [address] Referring VOCATIONAL EXAMINER 05/20/21 Supervisor Shearing Relationship Specialty Start Date End Date Medhat Denny MD [address] [place] [address] PCP - General Family Practice 03/16/21 Madison Spicer DO [address] [address] [facility] 04/01/21 Alex Perez MD [address] [place] [address] [address] [place] [address] Referring VOCATIONAL EXAMINER 05/20/21 Supervisor Shearing Relationship Specialty Start Date End Date Medhat Denny MD [address] [place] [address] PCP - General Family Practice 03/16/21 Madison Spicer DO [address] [address] [facility] 04/01/21 Alex Perez MD [address] [place] [address] [address] [place] [address] Referring VOCATIONAL EXAMINER 05/20/21 Supervisor Shearing Relationship Specialty Start Date End Date Medhat Denny MD [address] [place] [address] PCP - General Family Practice 03/16/21 Madison Spicer DO [address] [address] [facility] 04/01/21 Alex Perez MD [address] [place] [address] [address] [place] [address] Referring VOCATIONAL EXAMINER 05/20/21 Supervisor Shearing Relationship Specialty Start Date End Date Medhat Denny MD [address] [place] [address] PCP - General [facility] [facility] 03/16/21 Madison Spicer DO [address] [address] [facility] 04/01/21 Alex Perez MD [address] [place] [address] [address] [place] [address] Referring VOCATIONAL EXAMINER 05/20/21 Supervisor Shearing Relationship Specialty Start Date End Date Medhat Denny MD [address] [place] [address] PCP - General Family Practice 03/16/21 Madison Spicer DO [address] [address] [facility] 04/01/21 Alex Perez MD [address] [place] [address] [address] [place] [address] Referring VOCATIONAL EXAMINER 05/20/21 Supervisor Shearing Relationship Specialty Start Date End Date Medhat Denny MD [address] [place] [address] PCP - General Family Practice 03/16/21 Madison Spicer DO [address] [address] [facility] 04/01/21 Alex Perez MD [address] [place] [address] [address] [place] [address] Referring VOCATIONAL EXAMINER 05/20/21 Supervisor Shearing Relationship Specialty Start Date End Date Medhat Denny MD [address] [place] [address] PCP - General Family Medicine 03/16/21 [place] [address] [place] [address] [facility] 04/01/21 Alex Perez MD [address] [place] [address] [address] [place] [address] Referring VOCATIONAL EXAMINER 05/20/21 Supervisor Shearing Relationship Specialty Start Date End Date Medhat Denny MD [address] [place] [address] PCP - General Family Medicine 03/16/21 Madison Spicer DO [address] [address] [facility] 04/01/21 Alex Perez MD [address] [place] [address] [address] [place] [address] Referring VOCATIONAL EXAMINER 05/20/21 Supervisor Shearing Relationship Specialty Start Date End Date Medhat Denny MD [address] [place] [address] PCP - General Family Medicine 03/16/21 Madison Spicer DO [address], [address] [place] [address] [facility] 04/01/21 Alex Perez MD [address] [place] [address] [address] [place] [address] Referring VOCATIONAL EXAMINER 05/20/21 Supervisor Shearing Relationship Specialty Start Date End Date Medhat Denny MD [address] [place] [address] PCP - General Family Medicine 03/16/21 Madison Spicer DO [address] [place] [address] [facility] 04/01/21 Alex Perez MD [address] [place] [address] [address] [place] [address] Referring VOCATIONAL EXAMINER 05/20/21 Supervisor Shearing Relationship Specialty Start Date End Date Medhat Denny MD [address] [place] [address] PCP - General Family Medicine 03/16/21 Madison Spicer DO [address] [place] [address] [facility] 04/01/21 Alex Perez MD [address] [place] [address] [address] [place] [address] Referring VOCATIONAL EXAMINER 05/20/21 Supervisor Shearing Relationship Specialty Start Date End Date Medhat Denny MD [address] [place] [address] PCP - General Family Medicine 03/16/21 Madison Spicer DO [address] [place] [address] [facility] 04/01/21 Alex Perez MD [address] [place] [address] [address] [place] [address] Referring VOCATIONAL EXAMINER 05/20/21 Supervisor Shearing Relationship Specialty Start Date End Date Medhat Denny MD [address] [place] [address] PCP - General Family Medicine 03/16/21 Madison Spicer DO [address] [place] [address] [facility] 04/01/21 Alex Perez MD [address] [place] [address] [address] [place] [address] Referring VOCATIONAL EXAMINER 05/20/21 Supervisor Shearing Relationship Specialty Start Date End Date Medhat Denny MD [address] [place] [address] PCP - General Family Medicine 03/16/21 Madison Spicer DO [address] [place] [address] [facility] 04/01/21 Alex Perez MD [address] [place] [address] [address] [place] [address] Referring VOCATIONAL EXAMINER 05/20/21 Supervisor Shearing Relationship Specialty Start Date End Date Medhat Denny MD [address] [place] [address] PCP - General Family Medicine 03/16/21 Madison Spicer DO [address] [place] [address] [facility] 04/01/21 Alex Perez MD [address] [place] [address] [address] [place] [address] Referring VOCATIONAL EXAMINER 05/20/21 Supervisor Shearing Relationship Specialty Start Date End Date Medhat Denny MD [address] [place] [address] PCP - General Family Medicine 03/16/21 Madison Spicer DO [address] [place] [address] [facility] 04/01/21 Alex Perez MD [address] [place] [address] [address] [place] [address] Referring VOCATIONAL EXAMINER 05/20/21 Supervisor Shearing Relationship Specialty Start Date End Date Medhat Denny MD [address] [place] [address] PCP - General Family Medicine 03/16/21 Madison Spicer DO [address] [place] [address] [facility] 04/01/21 Alex Perez MD [address] [place] [address] Referring VOCATIONAL EXAMINER 05/20/21 Supervisor Shearing Relationship Specialty Start Date End Date Medhat Denny MD [address] [place] [address] PCP - General Family Medicine 03/16/21 Madison Spicer DO [address] [place] [address] [facility] 04/01/21 Alex Perez MD [address] [place] [address] [address] [place] [address] Referring VOCATIONAL EXAMINER 05/20/21 Supervisor Shearing Relationship Specialty Start Date End Date Medhat Denny MD [address] [place] [address] PCP - General Family Medicine 03/16/21 Madison Spicer DO [address] [place] [address] [facility] 04/01/21 Alex Perez MD [address] [place] [address] [address] [place] [address] Referring VOCATIONAL EXAMINER 05/20/21 Supervisor Shearing Relationship Specialty Start Date End Date Medhat Denny MD [address] [place] [address] PCP - General Family Medicine 03/16/21 Madison Spicer DO [address] [place] [address] [facility] 04/01/21 Alex Perez MD [address] [place] [address] [address] [place] [address] Referring VOCATIONAL EXAMINER 05/20/21 Supervisor Shearing Relationship Specialty Start Date End Date Medhat Denny MD [address] [place] [address] PCP - General Family Medicine 03/16/21 Madison Spicer DO [address] [place] [address] [facility] 04/01/21 Alex Perez MD [address] [place] [address] [address] [place] [address] Referring VOCATIONAL EXAMINER 05/20/21 Supervisor Shearing Relationship Specialty Start Date End Date Medhat Denny MD [address] [place] [address] PCP - General Family Medicine 03/16/21 Madison Spicer DO [address] [place] [address] [facility] 04/01/21 Alex Perez MD [address] [place] [address] [address] [place] [address] Referring VOCATIONAL EXAMINER 05/20/21 Supervisor Shearing Relationship Specialty Start Date End Date Medhat Denny MD [address] [place] [address] PCP - General Family Medicine 03/16/21 Madison Spicer DO [address] [place] [address] [facility] 04/01/21 Alex Perez MD [address] [place] [address] [address] [place] [address] Referring VOCATIONAL EXAMINER 05/20/21 Supervisor Shearing Relationship Specialty Start Date End Date Medhat Denny MD [address] [place] [address] PCP - General Family Medicine 03/16/21 Madison Spicer DO [address] [place] [address] [facility] 04/01/21 Alex Perez MD [address] [place] [address] [address] [place] [address] Referring VOCATIONAL EXAMINER 05/20/21 Supervisor Shearing Relationship Specialty Start Date End Date Medhat Denny MD [address] [place] [address] PCP - General Family Medicine 03/16/21 Madison Spicer DO [address] [place] [address] [facility] 04/01/21 Alex Perez MD [address] [place] [address] [address] [place] [address] Referring VOCATIONAL EXAMINER 05/20/21 Supervisor Shearing Relationship Specialty Start Date End Date Medhat Denny MD [address] [place] [address] PCP - General Family Medicine 03/16/21 Madison Spicer DO [address] [place] [address] [facility] 04/01/21 Alex Perez MD [address] [place] [address] [address] [place] [address] Referring VOCATIONAL EXAMINER 05/20/21 Supervisor Shearing Relationship Specialty Start Date End Date Medhat Denny MD [address] [place] [address] PCP - General Family Medicine 03/16/21 Madison Spicer DO [address] [place] [address] [facility] 04/01/21 Alex Perez MD [address] [place] [address] [address] [place] [address] Referring VOCATIONAL EXAMINER 05/20/21 Supervisor Shearing Relationship Specialty Start Date End Date Medhat Denny MD [address] [place], [place] 89[address]12 PCP - General Family Medicine 03/16/21 Madison Spicer DO [address] [place] [address] [facility] 04/01/21 Alex Perez MD [address] [place] [address] [address] [place], [place] [address]892 Referring VOCATIONAL EXAMINER 05/20/21 Supervisor Shearing Relationship Specialty Start Date End Date Medhat Denny MD [address] [place] [address] PCP - General Family Medicine 03/16/21 Madison Spicer DO [address] [place] [address] [facility] 04/01/21 Alex Perez MD [address] [place] [address] [place] [address] Referring VOCATIONAL EXAMINER 05/20/21 Supervisor Shearing Relationship Specialty Start Date End Date Medhat Denny MD [address] [place] [address] PCP - General Family Medicine 03/16/21 Madison Spicer DO [address] [place] [address] [facility] 04/01/21 Alex Perez MD [address] [place] [address] [place] [address] Referring VOCATIONAL EXAMINER 05/20/21 Supervisor Shearing Relationship Specialty Start Date End Date Medhat Denny MD [address] [place], [place] 119[address]22 PCP - General Family Medicine 03/16/21 Madison Spicer DO [address] [place] [address] [facility] 04/01/21 Alex Perez MD [address] [place] [address] TI SOTO [facility] [place] [address] Referring VOCATIONAL EXAMINER 05/20/21 Supervisor Shearing Relationship Specialty Start Date End Date Medhat Denny MD [address] [place] [address] PCP - General Family Medicine 03/16/21 Madison Spicer DO [address] [place] [address] [facility] 04/01/21 Alex Perez MD [facility] LJ S[address] [facility] [place] [address] Referring VOCATIONAL EXAMINER 05/20/21 Supervisor Shearing Relationship Specialty Start Date End Date Medhat Denny MD [address] [place] [address] PCP - General Family Medicine 03/16/21 Madison Spicer DO [address] [place] [address] [facility] 04/01/21 Alex Perez MD [address] [place] [address] [address] [place], [place] [id number] Referring VOCATIONAL EXAMINER 05/20/21 Supervisor Shearing Relationship Specialty Start Date End Date Medhat Denny MD [address] [place] [address] PCP - General Family Medicine 03/16/21 Madison Spicer DO [address] [place], [place] 7037495 [facility] 04/01/21 Alex Perez MD [address] [place] [address] [address] [place], [place] [address] Referring VOCATIONAL EXAMINER 05/20/21 Team Status: Active Member Role Status Dates No Primary Care Physician Family Provider Active No Primary Care Physician Primary Care Provider Active Team Status: Inactive Member Role Status Dates No Primary Care Physician Primary Care Provider, Refer ring Provider Active Dr. Harshad Sauceda MD Attending Provider Active Team Status: Active Member Role Status Dates No Primary Care Physician Primary Care Provider Active Dr. Harshad Sauceda MD Attending Provider Active Team Status: Inactive Member Role Status Dates No Primary Care Physician Primary Care Provider Active Dr. Harshad Sauceda MD Attending Provider, Referring Pro vider Active Supervisor Shearing Relationship Specialty Start Date End Date Medhat Denny MD [address] [place] [address] PCP - General Family Medicine 03/16/21 Madison Spicer DO [address] [place] [address] [facility] 04/01/21 Alex Perez MD [address] [place] [address] [address] [place] 895822 Referring VOCATIONAL EXAMINER 05/20/21 Team Status: Active Member Role Status Dates No Primary Care Physician Primary Care Provider Active Dr. Harshad Sauceda MD Attending Provider, Referring Pro vider Active Team Status: Active Member Role Status Dates No Primary Care Physician Primary Care Provider Active Dr. Harshad Sauceda MD Attending Provider, Referring Provider, Other Provider Active Supervisor Shearing Relationship Specialty Start Date End Date Medhat Denny MD [address] [place], [place] 845242 PCP - General Family Medicine 03/16/21 Madison Spicer DO [address] [place] [address] [facility] 04/01/21 Alex Perez MD [facility] LJ SOTO [facility] [place] 943172 Referring VOCATIONAL EXAMINER 05/20/21 Supervisor Shearing Relationship Specialty Start Date End Date eMdhat Denny MD [facility] [place] [address] PCP - General Family Medicine 03/16/21 Madison Spicer DO [address] [place] [address] [facility] 04/01/21 Alex Perez MD [facility] L[address] [place], [place] [address] Referring VOCATIONAL EXAMINER 05/20/21 Supervisor Shearing Relationship Specialty Start Date End Date Medhat Denny MD [address] [place], [place] [id number] PCP - General Family Medicine 03/16/21 Madison Spicer DO [address] [place] [address] [facility] 04/01/21 Alex Perez MD [facility] L[address] [place], [place] [id number] Referring VOCATIONAL EXAMINER 05/20/21 Supervisor Shearing Relationship Specialty Start Date End Date Medhat Denny MD [address] [place], [place] [address] PCP - General Family Medicine 03/16/21 Madison Spicer DO [address] [place] [address] [facility] 04/01/21 Alex Perez MD [facility] [place], [place] [address] Referring VOCATIONAL EXAMINER 05/20/21 Supervisor Shearing Relationship Specialty Start Date End Date Rosalina Hilton APRN.CNP [address] [place], [place] [id number] PCP - General Family Medicine 08/30/23 Madison Spicer DO [address] [place] [address] [facility] 04/01/21 Alex Perez MD [facility] L[address] [place] [address] Referring VOCATIONAL EXAMINER 05/20/21 Team Status: Inactive Member Role Status Dates No Primary Care Physician Primary Care Provider, Refer ring Provider Active PRAVEE[place] Berry Attending Provider Active Team Status: Active Member Role Status Dates No Primary Care Physician Primary Care Provider Active Dr. Harshad Sauceda MD Attending Provider Active PRAVEENA Berry Referring Provider Active Team Status: Inactive Member Role Status Dates No Primary Care Physician Primary Care Provider Active PRAVEE[place] Berry Attending Provider, Referring Provid er Active Team Status: Inactive Member Role Status Dates No Primary Care Physician Primary Care Provider Active PRAVEE[place] Berry Attending Provider Active Supervisor Shearing Relationship Specialty Start Date End Date Rosalina Hilton APRN.PREPARED FOODS SERVICE TEAM MEMBER [address] [place], [place] [id number] PCP - General Family Medicine 08/30/23 Madison Spicer DO [address] [place], [place] 8956795 [facility] 04/01/21 Alex Perez MD [address] [place] [address] [address] [place], [place] [id number] Referring Service Line Bus Cleaner 05/20/21 Supervisor Shearing Relationship Specialty Start Date End Date Rosalina Hilton APRN.PREPARED [employer]S SERVICE TEAM MEMBER [address] [place], [place] 045442 PCP - General Family Medicine 08/30/23 Madison Spicer DO [address] [place], [place] 2544695 [facility] 04/01/21 Alex Perez MD [facility] LJ [address] [place] [address] Referring Service Line Bus Cleaner 05/20/21 Supervisor Shearing Relationship Specialty Start Date End Date Rosalina Hilton, DATA SCIENCE AND IOT MANAGER.PREPARED FO[employer]S SERVICE TEAM MEMBER [address] [place], [place] 331442 PCP - General Family Medicine 08/30/23 Madison Spicer DO [address] [place] [address] [facility] 04/01/21 Alex Perez MD [address] [place] [address] [address] [place] [address] Referring Service Line Bus Cleaner 05/20/21 Supervisor Shearing Relationship Specialty Start Date End Date Rosalina Hilton DATA SCIENCE AND IOT MANAGER.PREPARED FOODS SERVICE TEAM MEMBER [address] [place] [address] PCP - General Family Medicine 08/30/23 Madison Spicer DO [address] [place] [address] [facility] 04/01/21 Alex Perez MD [address] [place] [address] [address] [place], [place] 560612 Referring Service Line Bus Cleaner 05/20/21 Supervisor Shearing Relationship Specialty Start Date End Date Rosalina Hilton DATA SCIENCE AND IOT MANAGER.PREPARED FOODS SERVICE TEAM MEMBER [address] [place], [place] 117[address] PCP - General Family Medicine 08/30/23 Madison Spicer DO [address] [place] [address] [facility] 04/01/21 Alex Perez MD [address] [place] [address] [address] [place], [place] 504502 Referring Service Line Bus Cleaner 05/20/21 Supervisor Shearing Relationship Specialty Start Date End Date Rosalina Hilton APRN.PREPARED FOODS SERVICE TEAM MEMBER [address] [place], [place] 566532 PCP - General Family Medicine 08/30/23 Madison Spicer DO [address] [place] [address] [facility] 04/01/21 Alex Perez MD [address] [place] [address] [address] [place] [address] Referring Service Line Bus Cleaner 05/20/21 Supervisor Shearing Relationship Specialty Start Date End Date Rosalina Hilton APRN.PREPARED FOODS SERVICE TEAM MEMBER [address] [place] [address] PCP - General Family Medicine 08/30/23 Madison Spicer DO [address] [place] [address] [facility] 04/01/21 Alex Perez MD [address] [place] [address] [address] [place] [address] Referring Service Line Bus Cleaner 05/20/21 Supervisor Shearing Relationship Specialty Start Date End Date Rosalina Hilton APRN.PREPARED FOODS SERVICE TEAM MEMBER [address] [place] [address] PCP - General Family Medicine 08/30/23 Madison Spicer DO [address] [place] [address] [facility] 04/01/21 Alex Perez MD [address] [place] [address] [address] [place] [address] Referring Service Line Bus Cleaner 05/20/21 Supervisor Shearing Relationship Specialty Start Date End Date Rosalina Hilton APRN.PREPARED FOODS SERVICE TEAM MEMBER [address] [place] [address] PCP - General Family Medicine 08/30/23 Madison Spicer DO [address] [place] [address] [facility] 04/01/21 Alex Perez MD [address] [place] [address] [address] [facility] [address] Referring Service Line Bus Cleaner 05/20/21 Supervisor Shearing Relationship Specialty Start Date End Date Rosalina Hilton APRN.PREPARED FOODS SERVICE TEAM MEMBER [address] [place] [address] PCP - General Family Medicine 08/30/23 Madison Spicer DO [address] [place] [address] [facility] 04/01/21 Alex Perez MD [address] [place] [address] [place] [address] Referring Service Line Bus Cleaner 05/20/21 Supervisor Shearing Relationship Specialty Start Date End Date Rosalina Hilton APRN.PREPARED FOODS SERVICE TEAM MEMBER [address] [place] [address] PCP - General Family Medicine 08/30/23 Madison Spicer DO [address] [place], [place] 5334895 [facility] 04/01/21 Alex Perez MD [address] [place] [address] [address] [place] [address] Referring Service Line Bus Cleaner 05/20/21 Supervisor Shearing Relationship Specialty Start Date End Date Rosalina Hilton APRN.PREPARED FOODS SERVICE TEAM MEMBER [address] [place] [address] [place] [address] PCP - General Family Medicine 08/30/23 Madison Spicer DO [address] [place] [address] [facility] 04/01/21 Alex Perez MD [address] [place] [address] [address] [address] Referring Service Line Bus Cleaner 05/20/21 Supervisor Shearing Relationship Specialty Start Date End Date Rosalina Hilton DATA SCIENCE AND IOT MANAGER.PREPARED FOODS SERVICE TEAM MEMBER [address] [place] [address] [place] [address] PCP - General Family Medicine 08/30/23 Madison Spicer DO [address] [place] [address] [facility] 04/01/21 Alex Perez MD [address] [place] [address] [place] [address] Referring Service Line Bus Cleaner 05/20/21 Supervisor Shearing Relationship Specialty Start Date End Date Rosalina Hilton APRN.PREPARED FOODS SERVICE TEAM MEMBER [address] [place], [place] [address], [place] 383112 PCP - General Family Medicine 08/30/23 Madison Spicer DO [address] [place] [address] [facility] 04/01/21 Alex Perez MD [address] [place] [address] [address] [place] [address] Referring Service Line Bus Cleaner 05/20/21 Supervisor Shearing Relationship Specialty Start Date End Date Rosalina Hilton APRN.PREPARED FOODS SERVICE TEAM MEMBER [address] [place], [place] [address] [address] PCP - General Family Medicine 08/30/23 Madison Spicer DO [address] [place] [address] [facility] 04/01/21 Alex Perez MD [address] [place] [address] [address] [facility] [place] [address] Referring Service Line Bus Cleaner 05/20/21 Supervisor Shearing Relationship Specialty Start Date End Date Dwayne Mcdaniel MD [address] [place], [place] [address]joy[place], [place] [id number] PCP - General Family Medicine 06/14/24 Madison Spicer DO [address] [place] [address] [facility] 04/01/21 Alex Perez MD [facility] [address] [place], [place] [id number] Referring Service Line Bus Cleaner 05/20/21 Supervisor Shearing Relationship Specialty Start Date End Date Dwayne Mcdaniel MD [address] [place], [place] [id number] PCP - General Family Medicine 06/14/24 Madison Spicer DO [address] [place], [place] 653[address]95 [facility] 04/01/21 Alex Perez MD [address] [place] [address] [address] [place], [place] [id number] Referring Service Line Bus Cleaner 05/20/21 Supervisor Shearing Relationship Specialty Start Date End Date Rosalina Hilton APRN.CNP [address] [place], [place] [id number] PCP - General Family Medicine 08/30/23 06/13/24 Madison Spicer DO [address] [place] [address] [facility] 04/01/21 Alex Perez MD [facility] [place] [place] [id number] Referring Service Line Bus Cleaner 05/20/21 Supervisor Shearing Relationship Specialty Start Date End Date Dwayne Mcdaniel MD [address] [place], [place] [id number] PCP - General Family Medicine 06/14/24 Madison Spicer DO [address] [place], [place] [id number] [facility] 04/01/21 Alex Perez MD [address] [place] [address] [address] [place], [place] [id number] Referring Service Line Bus Cleaner 05/20/21 Supervisor Shearing Relationship Specialty Start Date End Date Dwayne Mcdaniel MD [address] [place] [id number] PCP - General Family Medicine 06/14/24 Madison Spicer DO [address] [place], [place] 8659095 [facility] 04/01/21 Alex Perez MD [address] [place] [address] [address] [place] [address] Referring Service Line Bus Cleaner 05/20/21 Supervisor Shearing Relationship Specialty Start Date End Date Dwayne Mcdaniel MD [address] [place], [place] [id number] PCP - General Family Medicine 06/14/24 Madison Spicer DO [address] [place] [address] Hammer Heater Vascular Medicine 04/01/21 Alex Perez MD [address] [place] [address] [address] [place] [address] Referring Service Line Bus Cleaner 05/20/21 Supervisor Shearing Relationship Specialty Start Date End Date Dwayne Mcdaniel MD [address] [place], [place] [id number] PCP - General Family Medicine 06/14/24 Madison Spicer DO [address] [place] [address] Hammer Heater Vascular Medicine 04/01/21 Alex Perez MD [address] [place] [address] [address] [place], [place] [id number] Referring Service Line Bus Cleaner 05/20/21 Supervisor Shearing Relationship Specialty Start Date End Date Dwayne Mcdaniel MD [address] [place] [address] PCP - General Family Medicine 06/14/24 Madison Spicer DO [address] [place] [address] Hammer Heater Vascular Medicine 04/01/21 Alex Perez MD [address] [place] [address] [address] [place] [address] Referring Service Line Bus Cleaner 05/20/21 Supervisor Shearing Relationship Specialty Start Date End Date Dwayne Mcdaniel MD [address] [place] [address] PCP - General Family Medicine 06/14/24 Madison Spicer DO [address] [place] [address] Hammer Heater Vascular Medicine 04/01/21 Alex Perez MD [address] [place] [address] [address] [place] [address] Referring Service Line Bus Cleaner 05/20/21 Supervisor Shearing Relationship Specialty Start Date End Date Dwayne Mcdaniel MD [address] [place] [address] PCP - General Family Medicine 06/14/24 Madison Spicer DO [address] [place] [address] Hammer Heater Vascular Medicine 04/01/21 Alex Perez MD [address] [place] [address] [address] [facility] [place] [address] Referring Service Line Bus Cleaner 05/20/21 Supervisor Shearing Relationship Specialty Start Date End Date Dwayne Mcdaniel MD [address] [place] [address] PCP - General Family Medicine 06/14/24 Madison Spicer DO [address] [place] [address] Hammer Heater Vascular Medicine 04/01/21 Alex Perez MD [address] [place] [address] [address] [facility] [place] [address] Referring Service Line Bus Cleaner 05/20/21 Supervisor Shearing Relationship Specialty Start Date End Date Dwayne Mcdanile MD [address] [place], [place] [id number] PCP - General Family Medicine 06/14/24 Madison Spicer DO [address] [place], [place] [id number] Hammer Heater Vascular Medicine 04/01/21 Alex Perez MD [facility] [address] [place], [place] [address] Referring Service Line Bus Cleaner 05/20/21 Supervisor Shearing Relationship Specialty Start Date End Date Dwayne Mcdaniel MD [address] [place], [place] [address] PCP - General Family Medicine 06/14/24 Madison Spicer DO [address] [place], [place] [id number] Hammer Heater Vascular Medicine 04/01/21 Alex Perez MD [address] [place] [address] [address] [place], [place] [address] Referring Service Line Bus Cleaner 05/20/21 Supervisor Shearing Relationship Specialty Start Date End Date Dwayne Mcdaniel MD [address] [place], [place] [address] PCP - General Family Medicine 06/14/24 Madison Spicer DO [address] [place] [address] Hammer Heater Vascular Medicine 04/01/21 Alex Perez MD [facility] [address] [place], [place] [address]52 Referring Service Line Bus Cleaner 05/20/21 Supervisor Shearing Relationship Specialty Start Date End Date [place] [address] PCP - General Family Medicine 09/23/24 Madison Spicer DO [address] [place] [address] Hammer Heater Vascular Medicine 04/01/21 Alex Perez MD [facility] [address] [place], [place] [address] Referring Service Line Bus Cleaner 05/20/21 Supervisor Shearing Relationship Specialty Start Date End Date Jenna Ramos DO [address] [place] [address] PCP - General Family Medicine 09/23/24 Madison Spicer DO [address] [place] [address] Hammer Heater Vascular Medicine 04/01/21 Alex Perez MD [address] [place] [address] [address] [place], [place] [address] Referring Service Line Bus Cleaner 05/20/21 Supervisor Shearing Relationship Specialty Start Date End Date [place] [address] PCP - General Family Medicine 09/23/24 Madison Spicer DO [address] [place] [address] Hammer Heater Vascular Medicine 04/01/21 Alex Perez MD [facility] [address] [place] [address] Referring Service Line Bus Cleaner 05/20/21 Supervisor Shearing Relationship Specialty Start Date End Date Jenna Ramos DO [address] [place] [address] PCP - General Family Medicine 09/23/24 Madison Spicer DO [address] [place], [place] [id number] Hammer Heater Vascular Medicine 04/01/21 Alex Perez MD [address] [place] [address] [address] [address] Referring Service Line Bus Cleaner 05/20/21 Supervisor Shearing Relationship Specialty Start Date End Date Jenna Ramos DO [facility] [place] [address] PCP - General Family Medicine 09/23/24 Madison Spicer DO [address] [place], [place] [id number] Hammer Heater Vascular Medicine 04/01/21 Alex Perez MD [address] [place] [address] [address] [id number] Referring Service Line Bus Cleaner 05/20/21 Team Status: Active Member Role Status Dates Dr. Jenna Ramos DO Primary Care Provider Active Team Status: Inactive Member Role Status Dates Dr. Jenna Ramos DO Primary Care Provider Active Start: October 07, 2024 End: October 07, 2024 Dr. Jenna Ramos DO Referring Provider Active Start: October 07, 2024 End: October 07, 2024 Dr. Ivone Palm MD Attending Provider Active Start: October 07, 2024 End: October 07, 2024 Team Status: Inactive Member Role Status Dates Dr. Jenna Ramos DO Primary Care Provider Active Start: November 05, 2024 End: November 05, 2024 Dr. Raymond Dias MD Attending Provider Active S tart: November 05, 2024 End: November 05, 2024 Dr. Ivone Palm MD Referring Provider Active Start: November 05, 2024 End: November 05, 2024 Team Status: Active Member Role Status Dates Dr. Jenna Ramos DO Primary Care Provider Active Start: November 11, 2024 Dr. Raymond Dias MD Attending Provider Active S tart: November 11, 2024 Dr. Raymond Dias MD Referring Provider Active S tart: November 11, 2024 Team Status: Inactive Member Role Status Dates Dr. Jenna Ramos DO Primary Care Provider Active Start: November 26, 2024 End: November 26, 2024 Dr. Jenna Ramos DO Referring Provider Active Start: November 26, 2024 End: November 26, 2024 Dr. Ivone Palm MD Attending Provider Active Start: November 26, 2024 End: November 26, 2024 Team Status: Inactive Member Role Status Dates Dr. Jenna Ramos DO Primary Care Provider Active Start: November 26, 2024 End: November 26, 2024 Dr. Ivone Palm MD Attending Provider Active Start: November 26, 2024 End: November 26, 2024 Team Status: Inactive Member Role Status Dates Dr. Jenna Ramos DO Primary Care Provider Active Start: December 09, 2024 End: December 09, 2024 Dr. Ivone Palm MD Attending Provider Active Start: December 09, 2024 End: December 09, 2024 Dr. Ivone Palm MD Referring Provider Active Start: December 09, 2024 End: December 09, 2024 Team Status: Inactive Member Role Status Dates Dr. Jenna Ramos DO Primary Care Provider Active Start: December 23, 2024 End: December 23, 2024 Dr. Jenna Ramos DO Referring Provider Active Start: December 23, 2024 End: December 23, 2024 Carline Simmons MANUFACTURING SHIFT SUPERVISOR, MANUFACTURING SHIFT SUPERVISOR-C Attending Provider Active Start: December 23, 2024 End: December 23, 2024 Team Status: Inactive Member Role Status Dates Dr. Jenna Ramos DO Primary Care Provider Active Start: December 25, 2024 End: December 25, 2024 Carline Simmons MANUFACTURING SHIFT SUPERVISOR, MANUFACTURING SHIFT SUPERVISOR-C Attending Provider Active Start: December 25, 2024 End: December 25, 2024 Carline Simmons MANUFACTURING SHIFT SUPERVISOR, MANUFACTURING SHIFT SUPERVISOR-C Referring Provider Active Start: December 25, 2024 End: December 25, 2024 Supervisor Shearing Relationship Specialty Start Date End Date Jenna Ramos DO [address] [place] [address] PCP - General Family Medicine 09/23/24 Madison Spicer DO [address] [place], [place] [id number] Hammer Heater Vascular Medicine 04/01/21 Alex Perez MD [facility] [address] [id number] Referring Service Line Bus Cleaner 05/20/21 Supervisor Shearing Relationship Specialty Start Date End Date Jenna Ramos DO [address] [place] [address] PCP - General Family Medicine 09/23/24 Madison Spicer DO [address] [place], [place] [id number] Hammer Heater Vascular Medicine 04/01/21 Alex Perez MD [facility] [address] [place] [id number] Referring Service Line Bus Cleaner 05/20/21 Reason for Visit (unrecogniz ed section and content) Reason Comments Refill Request Reason Comments Consult Reason Comments Pre-Op Visit Reason Onset Date Comments Pre-Op Teaching 02/23/2022 Reason Comments Orders Reason Comments Pre-Op Exam Reason Comments UTI Reason Comments Post-Op Visit Reason Comments Hypothyroidism 6 month follow up Migraine Reason Comments 04/22/22 Appt time changed Reason Comments PPD Screening Or Test Reason Comments PPD Read Reason Onset Date Comments ED Follow-up 04/28/2022 [facility] 04/27/22 LLE pain (-DVT) and +UTI Reason Comments ED Follow-up [facility] ER 04/27/2022 Dx: Left lower leg pain and uti Reason Comments Radiology XR L-SPINE XRAY Reason Comments Internal Referrals/resources vascular Reason Onset Date Comments Refill Request Refill Request 02/22/2022 Refill Request 03/03/2022 Refill Request 05/18/2022 Reason Comments Pain Reason Comments TB test/Letter for [employer] shoes Reason Comments Back Pain Abdominal Pain Blood In Urine Reason Comments Refill Request Flonase Reason Comments ER F/U Reason Comments ER F/U Er follow up from [facility] on 10/18 for abdominal pain, loose stools. She states pain is better but still there some. They did give her a medication. They has did a CT results in chart. Reason Comments Internal Referrals/resources Gastroenter ology Reason Comments Results Reason Comments Pain Patient hurt her juan k on her lower left side. She can be standing and feel like a throbbing and a sharp pain. This has been going on for a week. Reason Comments Radiology XR RT HIP XRAY Reason Comments Back Pain Fatigue Reason Comments Consult Colonoscopy consult Reason Comments Iron Infusion auth Results Celiac labs Reason Onset Date Comments Refill Request 11/15/2022 Reason Comments Back Pain Reason Comments Med Change Request Specialty Diagnoses / Procedures Referred By Mika munguia Referred To Contact Diagnoses Unspecified abdominal pain Procedures ESOPHAGOGASTRODUODENOSCOPY TRANSORAL DIAGNOSTIC COLONOSCOPY FLX W/REMOVAL OF FOREIGN BODY(S) [facility] [address] [place] [address] Referral ID Status Reason Start Date Expiration Date Visits Re quested Visits Authorized [id number] 1 1 Reason Comments Follow Up eGD/ COLONOSCOPY Reason Onset Date Comments Refill Request 02/23/2023 Reason Onset Date Comments Refill Request 02/25/2023 Reason Onset Date Comments Refill Request 05/18/2023 Reason Comments Fatigue Specialty Diagnoses / Procedures Referred By Mika munguia Referred To Contact Diagnoses Sacroiliitis (HCC) Procedures INJECT SI JOINT ARTHRGRPHY&/ANES/STEROID W/PILAR BLOCK SACROILIAC WITH C-ARM [facility] [address] [place] [address] Referral ID Status Reason Start Date Expiration Date Visits Re quested Visits Authorized [id number] 1 1 Reason Comments URI Congestion, drainage , pressure Reason Onset Date Comments Refill Request 08/30/2023 Reason Onset Date Comments Refill Request 09/13/2023 Reason Comments Headache Pt has had a migrain e since Monday. Ear Pain Both ears Neck Pain Reason Onset Date Comments Refill Request 02/19/2024 Reason Onset Date Comments Refill Request 03/27/2024 Reason Comments Headache Patient presents for headaches and sinus pressure. Patient states this has been going on since September and on. Patient takes ibuprofen and mucinex and sudafed. She feels like she has fluid in her ears. Reason Onset Date Comments Refill Request 04/29/2024 Reason Comments Sinus Problem Patient sinuses have been bothering her, She has been dealing with this for a while. She stated he head is full and it hurts to breath. Patient has a ENT on 05/06. Reason Comments ED Follow-up Reason Comments Referral Information Neuro Reason Comments ED Follow-up Reason Onset Date Comments Refill Request 05/09/2024 Reason Comments Pain Neck Back Pain Low Reason Comments Anxiety Depression Reason Comments Referral Information ENT Reason Comments requesting call Reason Comments Change in time for June 11 procedure Specialty Diagnoses / Procedures Referred By Mika munguia Referred To Contact Diagnoses Myofascial pain syndrome Procedures TRIGGER POINT INJECTION MULTI 3+ MUSCLE GRP INJECTION TRIGGER POINT THREE OR MORE MUSCLES [facility] [address] [place] [address] Referral ID Status Reason Start Date Expiration Date Visits Re quested Visits Authorized [id number] 1 1 Reason Comments Referral Information Ortho, Ent, Derm Reason Comments Establish Care Transferring from [facility] due to her wanting a doctor because of her multiple medical issues. Headache On going headaches s diaz July. Has one everyday, wakes her up in the middle of the night. She thinks it is due to her sinuses, saw an ENT and a neurologist. They are debilitating. The neurologist gave her amitriptyline. Derm Problem Had melanoma in 2008 and was removed has a lot of weird moles and would like to see a director of accounts receivable. Reason Comments Hypothyroidism 1 month follow up - Still having sinus drainage, thick yellow - pouring into her mouth due to a hole behind her dentures Deep nail ridges and losing hair and thinning - would like labs drawn today Asking if you will prescribe her gabapentin - ortho will not fill it Reason Comments Referral Information Rheum and Hemotolog y Reason Comments Headache Headache, sinus pau estion, face,neck and jaw discomfort for 2 days - Patient concern for a sinus infection - OTC Ibuprofen, Sudafed, NyQuil, Venessa Selzer Reason Comments New Patient Migraines and neck p ain , have gotten so bad pt had to quick job. Has had since she was 24 Specialty Diagnoses / Procedures Referred By Contac t Referred To Contact Neurology Diagnoses Adjustment disorder with mixed anxiety and depressed mood Procedures CONSULT TO NEUROLOGY OFFICE/OUTPATIENT [facility] 60 MINUTES Rosalina Hilton, DATA SCIENCE AND IOT MANAGER.PREPARED [employer] SERVICE TEAM MEMBER [address] [place] [address] Referral ID Status Reason Start Date Expiration Date V isits Requested Visits Authorized [id number] Closed PCP Requested Referral 05/07/2024 05/07/2025 1 1 Reason Onset Date Comments ED Follow Up 08/28/2024 [facility] 08/25/24 Fal l, migraine Reason Comments Neck Pain Reason Comments Cough Cough, chest congest ion, sore throat, bilateral ear pain and states yeast like rash under breasts x 1 week Reason Comments Pain neck Reason Comments Established Patient Medication overuse h eadache Reason Comments Rhinitis Started 3 days ago Nasal Congestion Started 3 days ago Sinus Problem Pain Started 3 days ago Headache Started 3 days ago Reason Comments Migraine Reason Comments Headache Headache, dizziness, nasal pressure, ear throbbing x 2 daysStates she fell last night trying to reach for her migraine medication but doesn't remember if she hit her head Reason Comments burning with urination Burning with urin ation, lower back pain x 4 to 5 days Nasal congestion ongoing since last month Goals (unrecognized section and content) Goals may be documented in a n alternate sectionGoals may be documented in an alternate sectionGoals may be documented in an alternate sectionGoals may be documented in an alternate section PRN Active and Recently Administ ered Medications (unrecognized section and content) Medication Order 06/09/2024 06/10/2024 06/11/2024 bupivacaine (PF) 0.25 % (2.5 mg/mL) injection (SENSORCAINE MPF) (CANCELED) X (OR/PROCEDURE) PRN, Starting on Mon06/11/24 at 1019, Until Mon06/11/24 at 1027, Intraprocedure 1019 (Given - Provid er: Misael Wall MD) FOR RECORDS PERTAINING TO PATIENTS WHO ARE OR HAVE BEEN ENROLLED IN A CHEMICAL DEPENDENCY/SUBSTANCEABUSE PROGRAM, SOME INFORMATION MAY BE OMITTED. This clinical summary was aggregated from multiple sources. Caution should be exercised in using it in the provision of clinical care. This summary normalizes information from multiple sources, and as a consequence, information in this document may materially change the coding, format and clinical context of patient data. In addition, data may be omitted in some cases. CLINICAL DECISIONS SHOULD BE BASED ON THE PRIMARY CLINICAL RECORDS. [employer] [facility]. provides no warranty or guarantee of the accuracy or completeness of information in this document.
[2025-05-24 12:47] LABS: Anion Gap 12 (5-15); BUN 12 mg/dL (4-19); BUN/Creat Ratio 14.2 RATIO (10-20); Calcium,Total 8.6 mg/dL (7.6-11.0); Carbon Dioxide 20.5 mmol/L (21.0-32.0); Chloride 108 mmol/L (98-108); Estimated Creatinine Clearance 73.55 ml/min (50-250); Glucose 92 mg/dL (70-99); Potassium 3.8 mmol/L (3.3-5.1)
[2025-05-24 13:15] LABS: Mucous, Urine 0 SEEN /hpf (<or=2+); Red Blood Cells-Urine 0 SEEN /hpf (0-5); Squamous Epithelial Cells - UA 0 SEEN /hpf (5-10)
[2025-05-24 13:20] VITALS: BP 136/84; PULSE 71; RESP 16; O2SAT 99
[2025-05-24 13:37] LABS: Color, Urine Yellow (Yellow); Glucose, Dipstick Normal (Normal); Ketone-Dipstick Negative (Negative); Leukocyte Esterase-Dipstick Negative /ul (Negative); Nitrite-Dipstick Negative (Negative); Occult Blood-Urine Negative /ul (Negative); Protein-Dipstick Negative (Negative); Specific Gravity, Urine 1.010 (1.002-1.030); Urine Bilirubin Dipstick Negative (Negative)
[2025-05-24 14:48] VITALS: BP 128/84; PULSE 68; RESP 14; TEMP 36.9; O2SAT 97
== END 2025-05-24 14:49 | disposition home or self-care (01) ==
PROVIDERS: Physician Assistant; Emergency Provider Emergency Medicine; PCP Student in an Organized Health Care Education/Training Program; Visit Provider Emergency Medicine
DX: M79.605 Pain in left leg (principal); D68.59 Other primary thrombophilia; R30.0 Dysuria; Z86.718 Personal history of other venous thrombosis and embolism; K21.9 Gastro-esophageal reflux disease without esophagitis; Z79.899 Other long term (current) drug therapy; E03.9 Hypothyroidism, unspecified; Z79.890 Hormone replacement therapy; Z90.710 Acquired absence of both cervix and uterus; Z87.891 Personal history of nicotine dependence; Z79.01 Long term (current) use of anticoagulants
CPT/HCPCS: 36415; 80048; 81001; 85025; 93005; 93971; 99283

== ENCOUNTER → 2025-09-03 | Outpatient (CLI) | payer BC, SELFPAY ==
--- NOTE | 2025-09-03 09:02 | AAVD_ITS ---
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 in the cross-sectional axis. Proximal inferior vena cava measures 2.06 cm. in the longitudinal axis. Mid inferior vena cava measures 1.34x1.66 cm. in the cross-sectional axis. Mid inferior vena cava measures 1.42 cm. in the longitudinal axis. Distal inferior vena cava measures 1.34x1.38 cm. in the cross-sectional axis. Distal inferior vena cava measures 1.32 cm. in the longitudinal axis. The inferior vena cava has spontaneous, phasic flow throughout. Left Common Iliac Vein Left common iliac vein measures 1.21x1.28 cm. in the cross-sectional axis. Left common iliac vein measures 1.08 cm. in the longitudinal axis. The left common iliac vein has spontaneous, phasic flow throughout. Stent noted in Lt CIV. CFV has normal venous flow noted with augmentation. Right Common Iliac Vein Right common iliac vein measures 1.00x1.08 cm. in the cross-sectional axis. Right common iliac vein measures 0.93 cm. in the longitudinal axis. The right common iliac vein has spontaneous, phasic flow throughout. Procedure Aorta IVC Iliac vasculature or bypass grafts [id number]. Exam performed in department. VL/Abd Aortic/IVC Duplex scan Interpretation Summary Patent inferior vena cavaand right iliac vein with normal venous flow pattern. Patent left iliac vein stent with normal venous flow pattern. Ordering Physician: Tiara Sue Referring Physician: Jenna Ramos DO Performed By: Monica Castano RVT
== END | disposition home or self-care (01) ==
LOC: CVS 09:00
PROVIDERS: PCP Student in an Organized Health Care Education/Training Program; Referring Provider Physician Assistant; Visit Provider Physician Assistant
DX: Z48.812 Encounter for surgical aftercare following surgery on the circulatory system (principal); I87.1 Compression of vein
CPT/HCPCS: 93978

== ENCOUNTER → 2025-09-29 | Outpatient (CLI) | payer BC, SELFPAY ==
--- NOTE | 2025-09-29 10:02 | VDLE_ITS ---
Reason For Study Reason For Study: Pain BLE RIGHT LEFT GSV is normal. GSV is normal. CFV is compressible, spontaneous, phasic, competent Lt CFV, FV, PopV, and T/P Trunk are partially and demonstrates normal augmentation. compressible with bright intraluminal echoes FV is compressible, spontaneous, phasic, competent consistent with chronic DVT and demonstrates normal augmentation. Lt CFV is Competent POP V is compressible, spontaneous, phasic, competent Lt FV and Lt PopV are INCOMPETENT. and demonstrates normal augmentation. PTV is compressible. T/P Trunk is compressible. LT PerV is compressible. PTV is compressible. SFJ is INCOMPETENT and measures 0.64cm x 0.70 cm. RT PerV is compressible. GSV proximal thigh measures 0.31cm x 0.32 cm. SFJ is competent and measures 0.29cm x 0.31 cm. GSV at knee measures 0.22cm x 0.27 cm. GSV proximal thigh measures 0.24cm x 0.28 cm. GSV is competent throughout. GSV at knee measures 0.24cm x0.25 cm. SSV mid calf is competent and measures 0.40cm x 0.42 GSV is competent throughout. cm. SSV mid calf is competent and measures 0.22cm x 0.23 cm. Procedure This is a venous duplex using B-mode, color flow and spectral Doppler. Exam performed in department. Patient was scanned in reverse Trendelenburg position during reflux assessment. A preliminary report was called and/or faxed to Tiara GRISSOM. VL/Venous Duplex US - Jagdish Extrem Interpretation Summary Chronic post thrombotic changes noted in the left common femoral vein, femoral vein, popliteal vein, tibioperoneal trunk vein. Deep veins of the right lower extremity are patent and compressible segmentally . There is no evidence of right lower extremity deep vein thrombosis. The bilateral great saphenous veins appear paula nt and compressible segmentally. Positive for reflux in the left femoral vein, popliteal vein, saphenofemoral ju nction. Ordering Physician: Tiara Sue Referring Physician: Jenna Ramos Performed By: Valentina Pereira, MAXWELL, RVT
== END | disposition home or self-care (01) ==
LOC: CVS 09:59
PROVIDERS: PCP Student in an Organized Health Care Education/Training Program; Referring Provider Physician Assistant; Visit Provider Physician Assistant
DX: I87.1 Compression of vein (principal); I82.512 Chronic embolism and thrombosis of left femoral vein
CPT/HCPCS: 93970